=== PATIENT | female | born 1975 | race Caucasian/White ===

== ENCOUNTER 2017-12-08 00:51 | Emergency (ER) | payer OTHER ==
[~2017-12-08] VITALS: Ht 172.7 cm; Wt 80.8 kg
[~2017-12-08 00:51] MED LIST: ALBUAER9 INH; AMT25 PO; ASTNS; ATV5 PO; BUPRTAB51 PO; CALC200T PO; CERT200K SC; HYDR5SYP11 PO; LEVO1IUD2 IU; MRC50 PO; OMEG10007 PO; PANT40TA PO; PSEU60TA80 PO; SALINE 0.65%; TEMA15CA4 PO
[2017-12-08 00:56] VITALS: TEMP 36.7; Ht 172.7 cm; Wt 80.8 kg
[2017-12-08] MEDS ORDERED: DiphenhydrAMINE HCL 50 MG/ML VIAL IV STA (01:30)
[2017-12-08 01:36] LABS: BASO % 0.1 %; BASO ABS # 0.02 K/uL (0-0.2); EOS % 0.4 %; EOS ABS # 0.06 K/uL (0-0.5); HEMOGLOBIN 14.5 g/dL (12.0-16.0); IG# 0.03 K/uL (0.00-0.02); LYMPH % 20.6 %; LYMPH ABS # 2.81 K/uL (1.2-3.4); MEAN CORPUSCULAR HEMOGLOBIN 31.1 pg (25-34); MEAN CORPUSCULAR HGB CONC 35.4 g/dl (32-36); MEAN PLATELET VOLUME 8.9 fL (7.4-10.4); MONO % 5.9 %; MONO ABS # 0.81 K/uL (0.11-0.59); NEUT % 72.8 %; NEUT ABS # 9.94 K/uL (1.4-6.5); PLATELET COUNT 278 K/uL (130-400); RED CELL DISTRIBUTION WIDTH CV 13.1 % (11.5-14.5); RED CELL DISTRIBUTION WIDTH SD 41.7 fL (36.4-46.3); WHITE BLOOD COUNT 13.67 K/uL (4.8-10.8)
[2017-12-08] MEDS ORDERED: ONDANSETRON INJ 2 MG/ML 2 ML VIAL IV STA (01:42)
[2017-12-08 02:20] LABS: ALBUMIN 4.1 gm/dl (3.4-5.0); CALCIUM 9.3 mg/dl (8.5-10.1); CREATININE 0.77 mg/dl (0.60-1.20); POTASSIUM 3.4 mmol/L (3.5-5.1); TOTAL PROTEIN 8.6 gm/dl (6.4-8.2)
[2017-12-08] MEDS ORDERED: KETOROLAC TROMETHAMINE 15 MG/ML VIAL IV STA (02:24)
[2017-12-08] MEDS ORDERED: MoRPHine SULFATE 10 MG/ML CARP/VIAL IV STA (03:13)
[2017-12-08] MEDS ORDERED: NORCO 5/325MG HOME PACK PO ONE (03:45)
--- NOTE | 2017-12-08 03:50 | EMERGENCY ROOM VISIT NOTE ---
History First contact with patient: 01:01 Chief Complaint: FACIAL PAIN/INJURY Stated Complaint: FACIAL PAIN AND SWELLING History of Present Illness The patient is a 42 year old female who presents to the Emergency Room with complaints of facial pain and swelling. The patient reports that she noticed facial swelling and redness started this morning. She has redness in the nose and across the cheeks. The patient states the symptoms gradually worsened throughout the day. She has had symptoms similar to this in the past. She states that she has a history of Crohn's disease and was previously taking Cimzia and had a similar reaction multiple times. She had an extensive workup for this and it was determined that it was a reaction to the medication. This medication was then stopped and she was recently started on Stelara, receiving her first infusion 2 weeks ago. Patient does report she has been taking Tylenol for the past 2 days because she has not been feeling well and she is concerned this may be a reaction to the Tylenol. She denies difficulty breathing or swallowing. She denies any other rashes. She states the symptoms are very similar to the symptoms she experienced in the past. She reports burning pain in her face which is rated 8/10. Review of Systems A complete 10 point review of systems was reviewed with the patient with pertinent positives and negatives as per history of present illness. All else were negative. Past Medical/Surgical History Medical Problems: (1) Depression (2) Intra-abdominal abscesses secondary to Crohn's (3) Small bowel resection Social History Smoking Status: Current Every Day Smoker Alcohol Use: occasionally Marital Status: single Occupation Status: employed Current/Historical Medications Scheduled Amitriptyline Hcl (Elavil *), 25 MG PO HS Azelastine Hcl (Astelin Nasal [place] *), 2 SPRAYS NA BID Bupropion (Wellbutrin-Xl), 300 MG PO HS Calcium Carbonate-Vitamin D (Oscal 500/200 D-3), 1 TABLET PO DAILY Certolizumab Pegol (Cimzia), 400 MG SC MONTHLY Fish Oil ([place]-3), 1,000 MG PO DAILY Levonorgestrel (Iud) (Mirena), 1 IU UD Lorazepam (Ativan *), 0.5 MG PO TID PRN Mercaptopurine (Mercaptopurine), 75 MG PO DAILY [nasal saline 0.65%], 1 APPLN NA UD Scheduled PRN Albuterol Sulfate (Proventil Hfa), 2 PUFFS INH QID PRN Hydrocodone W/ Homatropine (Hycodan 5/1.5MG 5 Ml), 5 ML PO Q4 PRN Pantoprazole (Protonix), 40 MG PO DAILY PRN Pseudoephedrine-Guaifenesin (Mucinex D), 1 TABLET PO Q12 PRN Temazepam (Restoril), 15 MG PO HS PRN Physical Exam Vital Signs Date Time Temp Pulse Resp B/P (MAP) Pulse Ox O2 Delivery O2 Flow Rate FiO2 12/08/17 06:15 84 16 121/67 95 12/08/17 06:06 83 16 106/64 95 12/08/17 05:23 72 16 106/65 93 Room Air 12/08/17 05:12 72 16 98/54 93 12/08/17 05:00 74 16 66/50 95 12/08/17 04:00 70 16 100/54 95 Room Air 12/08/17 03:19 87 16 144/88 95 Room Air 12/08/17 01:42 102 16 137/93 95 Room Air 12/08/17 00:56 36.7 128 16 140/82 99 Room Air Physical Exam VITALS: Vitals are noted on the nurse's note and reviewed by myself. Vital signs stable. GENERAL: This is a 42-year-old female, in no acute distress, nondiaphoretic, well-developed well-nourished. SKIN: There is erythema and swelling/induration over the face extending from the nose to bilateral cheeks. This area is tender to palpation. EARS: External auditory canals clear, tympanic membranes pearly vázquez without erythema or effusion bilaterally. EYES: Pupils equal round and reactive to light and accommodation. Extraocular movements intact. NOSE: Patent, turbinates without inflammation or discharge. MOUTH: Mucous membranes moist. Tonsils are not enlarged. Pharynx without erythema or exudate. NECK: Supple without nuchal rigidity. No lymphadenopathy. HEART: Regular rate and rhythm without murmurs gallops or rubs. LUNGS: Clear to auscultation bilaterally without wheezes, rales or rhonchi. NEURO: Patient was alert and oriented to person place and time. Medical Decision & Procedures Laboratory Results 12/08/17 01:20 Red Blood Count 4.66, Mean Corpuscular Volume 88.0, Mean Corpuscular Hemoglobin 31.1, Mean Corpuscular Hemoglobin Concent 35.4, Mean Platelet Volume 8.9, Neutrophils (%) (Auto) 72.8, Lymphocytes (%) (Auto) 20.6, Monocytes (%) (Auto) 5.9, Eosinophils (%) (Auto) 0.4, Basophils (%) (Auto) 0.1, Neutrophils # (Auto) 9.94, Lymphocytes # (Auto) 2.81, Monocytes # (Auto) 0.81, Eosinophils # (Auto) 0.06, Basophils # (Auto) 0.02 12/08/17 01:20 Test 12/08/17 01:20 12/08/17 01:35 White Blood Count 13.67 K/uL (4.8-10.8) Red Blood Count 4.66 M/uL (4.2-5.4) Hemoglobin 14.5 g/dL (12.0-16.0) Hematocrit 41.0 % (37-47) Mean Corpuscular Volume 88.0 fL (80-100) Mean Corpuscular Hemoglobin 31.1 pg (25-34) Mean Corpuscular Hemoglobin Concent 35.4 g/dl (32-36) Platelet Count 278 K/uL (130-400) Mean Platelet Volume 8.9 fL (7.4-10.4) Neutrophils (%) (Auto) 72.8 % Lymphocytes (%) (Auto) 20.6 % Monocytes (%) (Auto) 5.9 % Eosinophils (%) (Auto) 0.4 % Basophils (%) (Auto) 0.1 % Neutrophils # (Auto) 9.94 K/uL (1.4-6.5) Lymphocytes # (Auto) 2.81 K/uL (1.2-3.4) Monocytes # (Auto) 0.81 K/uL (0.11-0.59) Eosinophils # (Auto) 0.06 K/uL (0-0.5) Basophils # (Auto) 0.02 K/uL (0-0.2) RDW Standard Deviation 41.7 fL (36.4-46.3) RDW Coefficient of Variation 13.1 % (11.5-14.5) Immature Granulocyte % (Auto) 0.2 % Immature Granulocyte # (Auto) 0.03 K/uL (0.00-0.02) Anion Gap 6.0 mmol/L (3-11) Est Creatinine Clear Calc Drug Dose 104.0 ml/min Estimated GFR () 108.8 Estimated GFR (Non- 93.9 BUN/Creatinine Ratio 11.9 (10-20) Calcium Level 9.3 mg/dl (8.5-10.1) Total Bilirubin 0.5 mg/dl (0.2-1) Aspartate Amino Transf (AST/SGOT) 29 U/L (15-37) Alanine Aminotransferase (ALT/SGPT) 37 U/L (12-78) Alkaline Phosphatase 76 U/L (45-117) Total Protein 8.6 gm/dl (6.4-8.2) Albumin 4.1 gm/dl (3.4-5.0) Globulin 4.5 gm/dl (2.5-4.0) Albumin/Globulin Ratio 0.9 (0.9-2) Chemistry Specimen Hemolysis Urine Color DK YELLOW Urine Appearance CLEAR (CLEAR) Urine pH 5.0 (4.5-7.5) Urine Specific [place] 1.021 (1.000-1.030) Urine Protein NEG (NEG) Urine Glucose (UA) NEG (NEG) Urine Ketones NEG (NEG) Urine Occult Blood 3+ (NEG) Urine Nitrite NEG (NEG) Urine Bilirubin NEG (NEG) Urine Urobilinogen NEG (NEG) Urine Leukocyte Esterase MODERATE (NEG) Urine WBC (Auto) 10-30 /hpf (0-5) Urine RBC (Auto) 10-30 /hpf (0-4) Urine Hyaline Casts (Auto) 5-10 /lpf (0-5) Urine Epithelial Cells (Auto) 10-20 /lpf (0-5) Urine Bacteria (Auto) NEG (NEG) Medications Administered Medications (Trade) Dose Ordered Sig/Cintia Route Start Time Stop Time Status Last Admin Dose Admin Diphenhydramine HCl (Benadryl Inj) 50 mg NOW STAT IV 12/08/17 01:30 12/08/17 01:31 DC 12/08/17 01:42 50 MG Ondansetron HCl (Zofran Inj) 4 mg NOW STAT IV 12/08/17 01:42 12/08/17 01:43 DC 12/08/17 02:06 4 MG Ketorolac Tromethamine (Toradol Inj) 15 mg NOW STAT IV 12/08/17 02:24 12/08/17 02:25 DC 12/08/17 02:27 15 MG Morphine Sulfate (MoRPHine SULFATE INJ) 6 mg NOW STAT IV 12/08/17 03:13 12/08/17 03:14 DC 12/08/17 03:18 6 MG Acetaminophen/ Hydrocodone Bitart ([place] 5/325mg Home Pack) 1 homepack UD ONCE PO 12/08/17 03:45 12/08/17 03:46 DC 12/08/17 03:51 1 HOMEPACK Sodium Chloride 1,000 ml @ 999 mls/hr Q1H1M STAT IV 12/08/17 05:07 12/08/17 06:07 DC 12/08/17 05:07 999 MLS/HR Medical Decision Differential diagnosis includes allergic reaction, adverse reaction to medication, erysipelas, facial cellulitis, SLE, autoimmune disorder, among others. The patient is a 42-year-old female who presents today complaining of swelling and redness of her face. Exam reveals a well-demarcated erythematous rash to the face distributed over the nose and both cheeks. Labs reveal leukocytosis, possibly due to stress reaction. Urinalysis was suggestive of contamination vs infection and will be cultured. The patient has had a similar reaction to Cimzia in the past and started Stelara recently. Her symptoms improved significantly after administration of Benadryl. She was given morphine for facial pain. She did have a drop in blood pressure after sitting up, likely a vagal reaction, possibly secondary to the morphine. She was administered fluids and felt much better. Blood pressure improved. She plans to follow up with her PCP in the morning. She was advised to return with worsening symptoms and continue Benadryl in the meantime. The patient's case was reviewed with Dr. Cardenas, ED attending physician, who agreed with my assessment and treatment plan. Based on the patient's presentation and work up, I feel the patient is stable for outpatient treatment. The patient was educated to return to the emergency department for any worsening of their current condition or new/concerning symptoms. She will follow up with her PCP. Medication Reconcilliation Current Medication List: was personally reviewed by me Blood Pressure Screening Patient's blood pressure: Normal blood pressure Impression Primary Impression: Facial swelling Departure Information Dispostion Home / Self-Care Referrals Angelic Mayer M.D. (PCP) Patient Instructions My [facility] Additional Instructions Continue Benadryl, 50 mg every 6 hours. You have been given [place] to be used for pain control. Take 1-2 tablets every 4 -6 hours as needed for pain. This is a narcotic medication. You cannot drive or consume alcohol while on this medicine. This medicine should only be used for pain that cannot be controlled with pkbs-ohf-ehwlviu pain medicines. For pain control, you can use the following tqap-fpl-wfysdvy medicines (if >12 yo): - Regular strength (325mg/tab) Tylenol (acetaminophen) 2 tabs every 4-6 hours as needed. Do not exceed 12 tablets in a 24 hour period. Avoid taking more than 4 grams (4000 mg) of Tylenol per day. This includes any other sources of acetaminophen you may take on a regular basis. - Regular strength (200 mg/tab) Advil (ibuprofen) 1-2 tabs every 4-6 hours as needed. Do not exceed a dose of [address] Mayer first thing in the morning to schedule a recheck today. Return here if he developed worsening swelling, pain, fever, difficulty breathing/swallowing or any other new/concerning symptoms.
[2017-12-08] MEDS ORDERED: SODIUM CHLORIDE 0.9% 1000ML 1,000 ML IV STA (05:07)
[2017-12-08 06:15] VITALS: BP 121/67; PULSE 84; O2SAT 95
== END 2017-12-08 06:15 | disposition home or self-care (01) ==
LOC: C.EDB 00:51 → C.EDA 06:15
DX: R22.0 Localized swelling, mass and lump, head (principal); R21 Rash and other nonspecific skin eruption; R51 Headache; D72.829 Elevated white blood cell count, unspecified; K50.90 Crohn's disease, unspecified, without complications; Z79.899 Other long term (current) drug therapy; Z90.49 Acquired absence of other specified parts of digestive tract; F32.9 Major depressive disorder, single episode, unspecified; F17.200 Nicotine dependence, unspecified, uncomplicated

== ENCOUNTER → 2017-12-17 | Outpatient (CLI) | payer OTHER ==
[2017-12-21 10:17] LABS: ANA SCREEN TC 249X NEGATIVE (NEGATIVE)
== END | disposition home or self-care (01) ==
LOC: C.LAB1850 13:51
PROVIDERS: ATTEND Internal Medicine Infectious Disease
DX: K50.90 Crohn's disease, unspecified, without complications (principal)

== ENCOUNTER 2019-09-26 07:32 | Inpatient (IN) ==
[2019-09-26] MEDS ORDERED: ONDANSETRON INJ 2 MG/ML 2 ML VIAL IV STA ×2 (07:53→09:29)
[2019-09-26] MEDS ORDERED: MoRPHine SULFATE 4 MG/ML 1 ML CARP\\VIAL IV STA ×2 (07:53→09:29)
[2019-09-26] MEDS ORDERED: methylPREDNISolone 125 MG/2 ML VIAL IV STA (07:53)
[2019-09-26] MEDS ORDERED: SODIUM CHLORIDE 0.9% 1000ML 1,000 ML IV SCH (08:00)
--- NOTE | 2019-09-26 08:00 | Emergency Department Note ---
History of Present Illness General Chief complaint: Abdominal Pain Stated complaint: AB PAIN COUGH FEVER SOB Time Seen by Provider: 09/26/19 07:46 History of Present Illness Maximum Pain Intensity: 9 This 44-year-old female presents the ER with chief complaint that she thinks she may have the flu. The patient states that evening she started with cold symptoms of head and chest congestion. She has started coughing and is very productive. She states that she gets short of breath when she is coughing. She feels achy all over. Her temperature was 102.1 at its highest. She has been taking Tylenol for her fever and body aches. Last dose was 2 hours ago. The patient states she has been trying to stay hydrated but has not been eating very much. She also is complaining of some left-sided abdominal pain but this is consistent with her Crohn's disease. She denies any bloody diarrhea or any diarrhea at all. She denies any vomiting but does admit to some nausea. She is followed closely by Dr. Rowley for her Crohn's disease. The patient denies any known exposures to persons with the influenza. Home Medications Home Medications Medication Instructions Recorded Confirmed Type albuterol sulfate [Proventil HFA] 2 puff INHALATION Q6H PRN 04/20/19 09/26/19 History azelastine 2 spray INTRANASAL BID 04/20/19 09/26/19 History bupropion HCl 300 mg PO HS 04/20/19 09/26/19 History calcium carbonate-vitamin D3 1 tab PO HS 04/20/19 09/26/19 History [Calcium 500 + D] escitalopram oxalate [Lexapro] 10 mg PO HS 04/20/19 09/26/19 History lorazepam 0.5 mg PO TID 04/20/19 09/26/19 History omega 4-jtg-kqq-fish oil [Fish Oil] 1 cap PO HS 04/20/19 09/26/19 History pantoprazole [Protonix] 40 mg PO HS 04/20/19 09/26/19 History sodium chloride [Saline Nasal] 2 spray INTRANASAL DIRECTED PRN 04/20/19 09/26/19 History ondansetron 4 mg PO Q6H PRN #12 tab 04/21/19 09/26/19 Rx acetaminophen [Tylenol Extra 500 mg PO Q6H PRN 09/26/19 09/26/19 History Strength] szplgnfaqgijh-EX-abdoqyiqjkmha 30 ml PO UD 09/26/19 09/26/19 History [Urmila Cheng Cold/Flu (cpm)] Allergies Allergy/AdvReac Type Severity Reaction Status Date / Time No Known Allergies Allergy Unknown Verified 09/26/19 08:41 Past Med/Surg History Medical History (Updated 09/26/19 @ 11:16 by Bernie Da Silva) Chronic maxillary sinusitis Crohn's disease Depression with anxiety History of Clostridioides difficile colitis History of deviated nasal septum History of erythema nodosum History of uveitis Tobacco abuse Surgical History History of colectomy History of colonoscopy Last 07/2019 History of rhinoplasty Multiple nasal surgeries x3 Family History (Updated 09/26/19 @ 10:51 by Vivian Smith PA-C) Father Heart disease TIA (transient ischemic attack) Mother Heart disease FH: diverticulitis Sister Crohn's disease Diabetes Social History Preferred Language: Mosotho Communication Ability: Effective Pinion Polisher Required: No Beliefs That Will Affect Care: None marital status: Single Current Living Situation: Significant Other Other Information That Helps Us Care for You: No Feels Safe at Home: Yes Safety Concerns: Feels Safe At This Time Smoking Status: Current every day smoker Tobacco Type: cigarettes ; Years Smoked: 35 ; Cigarettes Per Day: 10 ; Do You Dip or Chew Tobacco: No ; Second Hand Exposure: No ; Tobacco Cessation Education Requested by Patient: No Hx Alcohol Use: Yes Alcohol type Comment: Once a month Alcohol Intake Frequency: Rarely Hx Substance Use: Yes substance use type: marijuana Last Used Substance Other:: 3 to 4 weeks ago Review of Systems A total of 10 systems reviewed and were otherwise negative Physical Exam Vital Signs Vital Signs - 24 hr 09/26/19 07:41 09/26/19 08:28 09/26/19 09:13 Temperature 37.6 C H Temperature Source Oral Pulse Rate 101 H Pulse Rate [Finger] 77 Respiratory Rate 20 18 Respiratory Effort / Characteristics Non-Labored Spontaneous Non-Labored Spontaneous Short of Breath Respiratory Depth Normal Blood Pressure 105/66 Blood Pressure [Left Arm] Blood Pressure Mean 79 Blood Pressure Mean [Left Arm] Blood Pressure Position Sitting Pulse Oximetry 91 88 L 91 Oxygen Delivery Method Room Air Room Air Nasal Cannula Oxygen Flow Rate 2 Sepsis Recent Fever Within 48 Hours Yes Sepsis New/Unexplained Change in Mental Status No Sepsis Action Taken by Nursing No Action Required 09/26/19 09:20 09/26/19 09:58 09/26/19 10:45 Temperature Temperature Source Pulse Rate Pulse Rate [Finger] 80 84 81 Respiratory Rate 16 16 16 Respiratory Effort / Characteristics Respiratory Depth Blood Pressure Blood Pressure [Left Arm] 102/55 L 124/69 115/66 Blood Pressure Mean Blood Pressure Mean [Left Arm] 70 87 82 Blood Pressure Position Pulse Oximetry 91 97 92 Oxygen Delivery Method Nasal Cannula Nasal Cannula Nasal Cannula Oxygen Flow Rate 4 5 5 Sepsis Recent Fever Within 48 Hours Sepsis New/Unexplained Change in Mental Status Sepsis Action Taken by Nursing 09/26/19 11:09 Temperature Temperature Source Pulse Rate 82 Pulse Rate [Finger] Respiratory Rate 16 Respiratory Effort / Characteristics Respiratory Depth Blood Pressure 115/66 Blood Pressure [Left Arm] Blood Pressure Mean Blood Pressure Mean [Left Arm] Blood Pressure Position Pulse Oximetry 92 Oxygen Delivery Method Nasal Cannula Oxygen Flow Rate 5 Sepsis Recent Fever Within 48 Hours Sepsis New/Unexplained Change in Mental Status Sepsis Action Taken by Nursing PHYSICAL EXAM: Vital Signs were reviewed: Reviewed Nurse's notes and agree. Oxygen saturation is 91 % on room air which is slightly low l . GENERAL: 44-year-old female appears in no acute distress. MENTAL STATUS: Alert, oriented, coherent. EARS: Canals clear. TMs good light reflex, some scarring noted bilaterally. No erythema or fluid level noted. NOSE: Nasal mucosa with moderate erythema engorgement. PHARYNX: No erythema, no edema noted. No exudate noted. Airway is adequate. NECK: Supple, non-tender. No lymphadenopathy noted. LUNGS: Clear to auscultation without wheezes rales or rhonchi. CARDIAC: Slightly tachycardic at a rate of 101. Normal rhythm without murmur. Abdomen: Positive bowel sounds all 4 quadrants soft mild tenderness palpation over the entire left side of the abdomen right side nontender. No organomegaly or masses noted negative rebound noted SKIN: No rashes noted. Course Administered Medications Potassium Chloride/Sodium Chloride (Normal Saline W/20 Meq Kcl) 20 meq in 1,000 mls @ 100 mls/hr IV .Q10H DENILSON Stop: 09/27/19 06:29 Last Admin: 09/26/19 10:42 Dose: 100 mls/hr Documented by: [id number] Discontinued Medications Albuterol (Duoneb) 3 ml NEB NOW STA Stop: 09/26/19 08:33 Last Admin: 09/26/19 09:09 Dose: 3 ml Documented by: [id number] Sodium Chloride (Nss 1000ml) 1,000 mls @ 999 mls/hr IV .Q1H1M DENILSON Stop: 09/26/19 09:00 Last Infusion: 09/26/19 09:23 Dose: 0 mls/hr Documented by: [id number] Admin: 09/26/19 08:15 Dose: 999 mls/hr Documented by: [id number] Methylprednisolone (Solumedrol) 125 mg IV NOW STA Stop: 09/26/19 07:54 Last Admin: 09/26/19 08:16 Dose: 125 mg Documented by: [id number] Morphine Sulfate (Morphine Sulfate) 4 mg IV NOW STA Stop: 09/26/19 07:54 Last Admin: 09/26/19 08:15 Dose: 4 mg Documented by: [id number] Morphine Sulfate (Morphine Sulfate) 4 mg IV NOW STA Stop: 09/26/19 09:30 Last Admin: 09/26/19 09:40 Dose: 4 mg Documented by: [id number] Ondansetron HCl (Zofran) 4 mg IV NOW STA Stop: 09/26/19 07:54 Last Admin: 09/26/19 08:16 Dose: 4 mg Documented by: [id number] Ondansetron HCl (Zofran) 4 mg IV NOW STA Stop: 09/26/19 09:30 Last Admin: 09/26/19 09:40 Dose: 4 mg Documented by: [id number] Potassium Chloride (Klor-Con M10) 20 meq PO NOW STA Stop: 09/26/19 09:22 Last Admin: 09/26/19 09:26 Dose: 20 meq Documented by: [id number] Potassium Chloride (Klor-Con M20) 40 meq PO NOW STA Stop: 09/26/19 10:27 Last Admin: 09/26/19 10:42 Dose: 40 meq Documented by: [id number] Medical Decision Making Differential Diagnosis Influenza, URI, pneumonia, Crohn's flare Medical Records Attestation: I reviewed the patient's medical records. Home Medications Current Medication List: was personally reviewed by me Laboratory Data Attestation: I reviewed the patient's lab results. Result diagrams: 09/26/19 08:14 09/26/19 08:14 Lab Results 09/26/19 09/26/19 09/26/19 Range/Units 08:14 08:14 08:14 WBC 8.44 (4.8-10.8) K/uL RBC 4.52 (4.2-5.4) M/uL Hgb 14.2 (12.0-16.0) g/dL Hct 41.3 (37-47) % MCV 91.4 (80-100) fL MCH 31.4 (25-34) pg MCHC 34.4 (32-36) g/dL RDW Std Deviation 46.3 (36.4-46.3) fL RDW Coeff of Samia 13.8 (11.5-14.5) % Plt Count 257 (130-400) K/uL MPV 9.4 (7.4-10.4) fL Neutrophils % (Manual) 43.7 % Lymphocytes % (Manual) 24.6 % Reactive Lymphs % (Man) 21.1 % Monocytes % (Manual) 7.0 % Eosinophils % (Manual) 1.8 % Basophils % (Manual) 1.8 % Neutrophils # (Manual) 3.69 (1.4-6.5) K/uL Total Absolute Neuts 3.69 (1.4-6.5) K/uL Lymphocytes # (Manual) 2.08 (1.2-3.4) K/uL Reactive Lymphs # 1.78 K/uL Total Abs Lymphocytes 3.86 H (1.2-3.4) K/uL Monocytes # (Manual) 0.59 (0.11-0.59) K/uL Eosinophils # (Manual) 0.15 (0-0.5) K/uL Basophils # (Manual) 0.15 (0-0.2) K/uL RBC Morphology Unremarkable Sodium 139 (136-145) mmol/L Potassium 2.5 L* (3.5-5.1) mmol/L Chloride 103 (98-107) mmol/L Carbon Dioxide 29 (21-32) mmol/L Anion Gap 7.0 (3-11) BUN 9 (7-18) mg/dl Creatinine 0.83 (0.6-1.2) mg/dl Est Cr Clr Drug Dosing 85.4 ml/min Est GFR ( Amer) 98.0 Est GFR (Non-Af Amer) 84.6 BUN/Creatinine Ratio 11.1 (10-20) Glucose 113 H (70-99) mg/dl Calcium 8.6 (8.5-10.1) mg/dl Magnesium (1.8-2.4) mg/dl Total Bilirubin 0.2 (0.2-1) mg/dl AST 21 (15-37) U/L ALT 15 (12-78) U/L Alkaline Phosphatase 53 (45-117) U/L Total Protein 7.5 (6.4-8.2) gm/dl Albumin 3.3 L (3.4-5.0) gm/dl Globulin 4.2 H (2.5-4.0) gm/dl Albumin/Globulin Ratio 0.8 L (0.9-2) Lipase 52 L (73-393) U/L Influenza Type A Ag Neg for Influ A (Neg) Influenza Type B Ag Neg for Influ B (Neg) 09/26/19 Range/Units 08:14 WBC (4.8-10.8) K/uL RBC (4.2-5.4) M/uL Hgb (12.0-16.0) g/dL Hct (37-47) % MCV (80-100) fL MCH (25-34) pg MCHC (32-36) g/dL RDW Std Deviation (36.4-46.3) fL RDW Coeff of Samia (11.5-14.5) % Plt Count (130-400) K/uL MPV (7.4-10.4) fL Neutrophils % (Manual) % Lymphocytes % (Manual) % Reactive Lymphs % (Man) % Monocytes % (Manual) % Eosinophils % (Manual) % Basophils % (Manual) % Neutrophils # (Manual) (1.4-6.5) K/uL Total Absolute Neuts (1.4-6.5) K/uL Lymphocytes # (Manual) (1.2-3.4) K/uL Reactive Lymphs # K/uL Total Abs Lymphocytes (1.2-3.4) K/uL Monocytes # (Manual) (0.11-0.59) K/uL Eosinophils # (Manual) (0-0.5) K/uL Basophils # (Manual) (0-0.2) K/uL RBC Morphology Sodium (136-145) mmol/L Potassium (3.5-5.1) mmol/L Chloride (98-107) mmol/L Carbon Dioxide (21-32) mmol/L Anion Gap (3-11) BUN (7-18) mg/dl Creatinine (0.6-1.2) mg/dl Est Cr Clr Drug Dosing ml/min Est GFR ( Amer) Est GFR (Non-Af Amer) BUN/Creatinine Ratio (10-20) Glucose (70-99) mg/dl Calcium (8.5-10.1) mg/dl Magnesium 1.9 (1.8-2.4) mg/dl Total Bilirubin (0.2-1) mg/dl AST (15-37) U/L ALT (12-78) U/L Alkaline Phosphatase (45-117) U/L Total Protein (6.4-8.2) gm/dl Albumin (3.4-5.0) gm/dl Globulin (2.5-4.0) gm/dl Albumin/Globulin Ratio (0.9-2) Lipase (73-393) U/L Influenza Type A Ag (Neg) Influenza Type B Ag (Neg) Imaging Data Attestation: I personally reviewed and interpreted this imaging study as follows: Blood Pressure Blood Pressure Findings: Normal blood pressure MDM Narrative The patient was evaluated. IV access was obtained. The patient was given 1 L normal saline wide open. She was given Zofran 4 mg IV for nausea and morphine 4 mg IV for pain. CBC differential, renal profile, LFTs and lipase levels were ordered. Chest x-ray was ordered interpreted by the radiologist and myself as above with left lower lobe infiltrate. Rapid influenza was negative for influenza A and influenza B. The patient's white count was normal at 8.44. Magnesium was normal at 1.9 potassium was low at 2.5. She was given 20 mEq of K. Dur p.o. The patient's initial pulse ox was 88% on room air. She was initially placed on 2 L of oxygen and her O2 sat went up to 94. She then went back down to 88% on the 2 L. She then was titrated up to 5 L via nasal cannula and is satting 92% the patient was informed of all findings. Hospitalist was consulted for admission. Impression & Plan Hypoxia, Pneumonia, Hypokalemia Discharge Plan Visit Data Chief Complaint: Abdominal Pain Stated Complaint: AB PAIN COUGH FEVER SOB ED Provider: Tano Alvarez ED Midlevel Provider: Bernie Da Silva Discharge Problem: Hypoxia, Pneumonia, Hypokalemia Patient Disposition: Being Evaluated by Hospitalist Condition: Good Discharge Instructions Interventions: ED Discharge Assessment Last Done: 09/26/19 11:09 Forms Stand Alone Forms: Call Back Authorization, [facility] Prescriptions Prescriptions: No Action acetaminophen [Tylenol Extra Strength] 500 mg Tablet 500 mg PO Q6H PRN (Reason: Pain) RF: 0 Vicks NyQuil Cold/Flu (cpm) 4-30-650 mg/30 mL Liquid 30 ml PO UD RF: 0 bupropion HCl 150 mg Tablet Sustained-Release 12 Hr 300 mg PO HS RF: 0 lorazepam 0.5 mg Tablet 0.5 mg PO TID RF: 0 pantoprazole [Protonix] 40 mg Tablet,Delayed Release (Dr/Ec) 40 mg PO HS RF: 0 azelastine 137 mcg (0.1 %) Aerosol,[place] 2 spray INTRANASAL BID RF: 0 albuterol sulfate [Proventil HFA] 90 mcg/actuation Hfa Aerosol Inhaler 2 puff INHALATION Q6H PRN (Reason: Shortness Of Breath Or Wheezing) RF: 0 escitalopram oxalate [Lexapro] 10 mg Tablet 10 mg PO HS RF: 0 sodium chloride [Saline Nasal] 0.65 % Aerosol,[place] 2 spray INTRANASAL DIRECTED PRN (Reason: Dry Nasal Passages) RF: 0 calcium carbonate-vitamin D3 [Calcium 500 + D] 500 mg(1,250mg) -200 unit Tablet 1 tab PO HS RF: 0 omega 4-cnb-mbs-fish oil [Fish Oil] 1,000 mg (120 mg-180 mg) Capsule 1 cap PO HS RF: 0 ondansetron 4 mg tablet,disintegrating 4 mg PO Q6H PRN (Reason: nausea and vomiting) Qty: 12 RF: 0 Referrals Referrals: Angelic Mayer MD [Primary Care Provider] -
[2019-09-26 08:31] LABS: Hematocrit (blood only) 41.3 % (37-47); Hemoglobin 14.2 g/dL (12.0-16.0); Mean Corpuscular Hemoglobin 31.4 pg (25-34); Mean Corpuscular Hgb Conc 34.4 g/dL (32-36); Mean Corpuscular Volume 91.4 fL (80-100); Mean Platelet Volume 9.4 fL (7.4-10.4); Platelet Count 257 K/uL (130-400); RDW Coefficient of Variation 13.8 % (11.5-14.5); RDW Standard Deviation 46.3 fL (36.4-46.3); Red Blood Count 4.52 M/uL (4.2-5.4); White Blood Count 8.44 K/uL (4.8-10.8)
[2019-09-26] MEDS ORDERED: ALBUT/IPRATROP 3MG/0.5MG NEB 3 ML VIAL NEB STA (08:32)
--- NOTE | 2019-09-26 09:11 | XRay Report ---
XR chest 2V PA/lateral CLINICAL HISTORY: Cough, fever, shortness of breath COMPARISON STUDY: Chest radiograph March 03, 2012. FINDINGS: Lung volumes are normal. There is no pneumothorax or pleural effusion. Cardiac size is norm al. Mediastinal contours are normal. There is no evidence for pulmonary edema. There is mild intersti tial thickening and minimal left basilar opacity. IMPRESSION: Nonspecific mild interstitial thickening and minimal left basilar opacity. ACT 112: Negative or not required by law. Electronically signed by: Eliseo Saxena M.D. 09/26/2019 9:09 AM
[2019-09-26 09:15] LABS: Albumin Globulin Ratio 0.8 (0.9-2); Albumin Level 3.3 gm/dl (3.4-5.0); BUN Creatinine Ratio 11.1 (10-20); Bilirubin,Total 0.2 mg/dl (0.2-1); Calcium 8.6 mg/dl (8.5-10.1); Creatinine Clr Calc Pharmacy 85.4 ml/min; Est GFR (Non-African American) 84.6; Globulin 4.2 gm/dl (2.5-4.0); Potassium 2.5 mmol/L (3.5-5.1); Total Protein 7.5 gm/dl (6.4-8.2)
[2019-09-26 09:18] LABS: ALC (manual) 3.86 K/uL (1.2-3.4); ANC (manual) 3.69 K/uL (1.4-6.5); Basophils # (manual) 0.15 K/uL (0-0.2); Basophils % (manual) 1.8 %; Eosinophils # (manual) 0.15 K/uL (0-0.5); Eosinophils % (manual) 1.8 %; Lymphocytes # (manual) 2.08 K/uL (1.2-3.4); Lymphocytes % (manual) 24.6 %; Monocytes # (manual) 0.59 K/uL (0.11-0.59); Neutrophils # (manual) 3.69 K/uL (1.4-6.5); Neutrophils % (manual) 43.7 %; RBC Morphology Unremarkable; Reactive Lymphocytes # (manual) 1.78 K/uL; Reactive Lymphocytes % (manual) 21.1 %
[2019-09-26] MEDS ORDERED: POTASSIUM CHLORIDE 10 MEQ TABCR PO STA (09:21)
[2019-09-26] MEDS ORDERED: POTASSIUM CHLORIDE 20 MEQ TABCR PO STA ×2 (10:26→20:38)
[2019-09-26] MEDS: NSS + 20MEQ KCL 20 MEQ/1,000 ML BAG IV SCH ×2 (10:42→20:10)
--- NOTE | 2019-09-26 10:56 | History & Physical Report ---
Date of Service September 26, 2019 Assessment & Plan (1) Pneumonia: (2) Hypoxia: This is a 44-year-old female who has significant past medical history of Crohn's disease, depression with anxiety, tobacco abuse, vitamin D deficiency, chronic maxillary sinusitis who presents to ED secondary to fever x5 days; shortness of breath x1 day. In ED upon arrival patient was hypoxic requiring 5 L of O2 to maintain normal oxygen saturation. He had mild elevation in temp 37.6. Was otherwise hemod ynamically stable. CBC relatively unremarkable except mild elevation in total absolute lymphocytes 3.86. CMP significant for hypokalemia 2.5, glucose 113, negative for influenza. Chest x-ray concerning for minimal left basilar opacity versus thickening. She received 1 L of IVF, nebulizer treatment, 125 mg Solu-Medrol and 20 M EQ of KCl. Acute hypoxia in setting of left basilar pneumonia viral versus bacterial. Admit to PCU Obtain CT scan of chest rule out PE and CT scan of abdomen pelvis rule out Crohn's flare IV antibiotics Rocephin and Doxycycline Patient with history of multiple episodes of C. difficile - stool ordered IV Solu-Medrol 40 mg 3 times daily DuoNeb 4 times daily, incentive spirometry, mucolytic's Sputum culture (3) Hypokalemia: K2.5, likely secondary to GI loss and poor p.o. intake Received 20 M EQ KCl while in ED Additional 40 M EQ KCl x1 now and again at 4 PM KCl with IVF Repeat K at 8 PM and in a.m. (4) Abdominal pain: Patient presenting with worsened abdominal pain and increased frequency. She denies any blood in stool. Elicits symptoms similar to prior exacerbation of Crohn's and history of C. difficile. She has not been taking any immunosuppressants as outpatient. Last seen by GI on 08/08/19 had colonoscopy in 07/[address] scan abdomen pelvis with contrast Stool for C. difficile Consult GI (5) Crohn's disease: As above (6) Tobacco abuse: Encourage smoking cessation Patient requesting nicotine patch (7) Depression with anxiety: Mood stable Continue Wellbutrin and Lexapro Lorazepam 3 times daily, hold for sedation (8) DVT prophylaxis: Lovenox Disposition: admit to PCU Follow up: PCP Dr. Mayer upon discharge along with appropriate GI follow up due to Crohns Pt was seen and examined in collaboration with Dr. Riley, please see addendum History of Present Illness Chief Complaint: Fever x5 days; shortness of breath x1 day. Primary Care Provider: Angelic Mayer MD This is a 44-year-old female who has significant past medical history of Crohn's disease, depression with anxiety, tobacco abuse, vitamin D deficiency, chronic maxillary sinusitis who presents to ED secondary to fever x5 days; shortness of breath x1 day. Starting last patient began developing intermittent fevers chills and sweats. Temp max was 102.6. Approximately 1.5 days after developing fever she developed lower respiratory symptoms including moist but nonproductive cough, wheezing, shortness with with exertion, malaise, fatigue, decreased appetite, continued fever and chills and nausea. She further elicits to being lightheaded with movement but denies any syncopal event. She does have sick contact with similar symptoms. Denies prior history of pneumonia or asthma. She is a half a pack a day smoker for 35 years and intermittent marijuana use. Denies recent travel out of the country or exposed to someone with recent travel. She further denies any hemoptysis, emesis, chest pain, palpitations, dysuria, increased urgency or frequency with urination, melena, hematochezia. He notes decreased frequency with urination secondary to poor p.o. intake. She also elicits 8-10 loose bowel movements daily. This is not a bnormal secondary to her Crohn's but she feels she is moving her bowels more frequently and experiencing LLQ abdominal pain. Abdominal pain is predominantly in the LLQ but does radiate throughout entire abdomen. Is constant but wax and wanes in severity. Upon arrival to ED was approximately 9 out of 10 and currently is 4 out of 10. Nothing makes pain better or worse. Feels similar to her prior flare of Crohn's and history of C. difficile. Denies any recent antibiotic use. She has been trying [id number] APAP for fever and NyQuil with minimal relief. He denies currently being on any immunosuppressant for her Crohn's, last on Stelara. Elicits to having colonoscopy 07/2019 which revealed stricture. In ED upon arrival patient was hypoxic requiring 5 L of O2 to maintain normal ox ygen saturation. He had mild elevation in temp 37.6. Was otherwise hemodynamically stable. CBC relatively unremarkable except mild elevation in total absolute lymphocytes 3.86. CMP significant for hypokalemia 2.5, glucose 113, negative for influenza. Chest x-ray concerning for minimal left basilar opacity versus thickening. She received 1 L of IVF, nebulizer treatment, 125 mg Solu-Medrol and 20 M EQ of KCl. Allergies Allergy/AdvReac Type Severity Reaction Status Date / Time No Known Allergies Allergy Unknown Verified 09/26/19 08:41 Home Medications Home Medications Medication Instructions Recorded Confirmed Type albuterol sulfate [Proventil HFA] 2 puff INHALATION Q6H PRN 04/20/19 09/26/19 History azelastine 2 spray INTRANASAL BID 04/20/19 09/26/19 History bupropion HCl 300 mg PO HS 04/20/19 09/26/19 History calcium carbonate-vitamin D3 1 tab PO HS 04/20/19 09/26/19 History [Calcium 500 + D] escitalopram oxalate [Lexapro] 10 mg PO HS 04/20/19 09/26/19 History lorazepam 0.5 mg PO TID 04/20/19 09/26/19 History omega 4-nzo-iok-fish oil [Fish Oil] 1 cap PO HS 04/20/19 09/26/19 History pantoprazole [Protonix] 40 mg PO HS 04/20/19 09/26/19 History sodium chloride [Saline Nasal] 2 spray INTRANASAL DIRECTED PRN 04/20/19 09/26/19 History ondansetron 4 mg PO Q6H PRN #12 tab 04/21/19 09/26/19 Rx acetaminophen [Tylenol Extra 500 mg PO Q6H PRN 09/26/19 09/26/19 History Strength] rmcacofebyfoz-FS-tpqcpralscuav 30 ml PO UD 09/26/19 09/26/19 History [Vicks NyQuil Cold/Flu (cpm)] Past Med/Surg History Medical History (Updated 09/26/19 @ 11:16 by Bernie Da Silva) Chronic maxillary sinusitis Crohn's disease Depression with anxiety History of Clostridioides difficile colitis History of deviated nasal septum History of erythema nodosum History of uveitis Tobacco abuse Surgical History History of colectomy History of colonoscopy Last 07/2019 History of rhinoplasty Multiple nasal surgeries x3 Family History (Updated 09/26/19 @ 10:51 by Vivian Smith PA-C) Father Heart disease TIA (transient ischemic attack) Mother Heart disease FH: diverticulitis Sister Crohn's disease Diabetes Social History Preferred Language: Romansh Communication Ability: Effective Tripe Washer Required: No Beliefs That Will Affect Care: None marital status: Single Current Living Situation: Significant Other Other Information That Helps Us Care for You: No Feels Safe at Home: Yes Safety Concerns: Feels Safe At This Time Smoking Status: Current every day smoker Tobacco Type: cigarettes ; Years Smoked: 35 ; Cigarettes Per Day: 10 ; Do You Dip or Chew Tobacco: No ; Second Hand Exposure: No ; Tobacco Cessation Education Requested by Patient: No Hx Alcohol Use: Yes Alcohol type Comment: Once a month Alcohol Intake Frequency: Rarely Hx Substance Use: Yes substance use type: marijuana Last Used Substance Other:: 3 to 4 weeks ago Review of Systems Review of Systems: All systems reviewed & are unremarkable except as noted in HPI & below Physical Exam Physical Exam: Constitutional: Ill-appearing, pale, female, on O2 via NC, dyspneic with conversation, vitals as above, NAD, sitting up in bed, pleasant Head: Normocephalic, Atraumatic Eyes: PERRL, conjunctivae normal, anicteric sclerae ENMT: external ear and nose normal, oropharynx normal with dry mucous membranes Neck: trachea midline, no thyromegaly normal visual inspection Respiratory: normal respiratory effort, patient with coarse breath sounds throughout, rales bibasilarly, no wheeze or rhonchi noted. On O2 via NC 5L. normal insp/exp effort, no accessory muscle use Cardiovascular: RRR, no murmur, no edema Vessels: no JVD or carotid bruit Chest: normal inspection of chest Abdomen: normal bowel sounds, soft, tender to palpation diffusely with max at LLQ, no rebound, no guarding, no rigidity, nondistended no hepatosplenomegaly Musculoskeletal: no cyanosis or clubbing, extremities motor strength 5/5 Skin: no rashes, warm and dry mild turgor Neurologic: PERRL, EOMI, accommodation nl, no face palsy, no dysarthria CN's II-XI intact bilaterally and moves all extremities Psychiatric: A+Ox3, euthymic affect Lymphatic: no cervical or axillary lymphadenopathy : deferred Results & Data Vital Signs (Past 12 Hours) Vital Signs Temp Pulse Pulse Resp BP BP Pulse Ox 09/26/19 09:58 84 16 124/69 97 09/26/19 09:20 80 16 102/55 L 91 09/26/19 09:13 77 18 91 09/26/19 08:28 88 L 09/26/19 07:41 37.6 C H 101 H 20 105/66 91 Laboratory Results Short CBC 09/26/19 Range/Units 08:14 WBC 8.44 (4.8-10.8) K/uL Hgb 14.2 (12.0-16.0) g/dL Hct 41.3 (37-47) % Plt Count 257 (130-400) K/uL Total Abs Lymphocytes 3.86 H (1.2-3.4) K/uL BMP 09/26/19 08:14 Sodium 139 Potassium 2.5 L* Chloride 103 Carbon Dioxide 29 BUN 9 Creatinine 0.83 Glucose 113 H Calcium 8.6 Liver Function 09/26/19 Range/Units 08:14 Total Bilirubin 0.2 (0.2-1) mg/dl AST 21 (15-37) U/L ALT 15 (12-78) U/L Alkaline Phosphatase 53 (45-117) U/L Albumin 3.3 L (3.4-5.0) gm/dl Diagnostic Findings CXR: FINDINGS: Lung volumes are normal. There is no pneumothorax or pleural effusion. Cardiac size is normal. Mediastinal contours are normal. There is no evidence for pulmonary edema. There is mild interstitial thickening and minimal left basilar opacity. IMPRESSION: Nonspecific mild interstitial thickening and minimal left basilar opacity. Medications Administered Potassium Chloride/Sodium Chloride (Normal Saline W/20 Meq Kcl) 20 meq in 1,000 mls @ 100 mls/hr IV .Q10H DENILSON Stop: 09/27/19 06:29 Last Admin: 09/26/19 10:42 Dose: 100 mls/hr Documented by: [id number] Discontinued Medications Albuterol (Duoneb) 3 ml NEB NOW STA Stop: 09/26/19 08:33 Last Admin: 09/26/19 09:09 Dose: 3 ml Documented by: [id number] Sodium Chloride (Nss 1000ml) 1,000 mls @ 999 mls/hr IV .Q1H1M DENILSON Stop: 09/26/19 09:00 Last Infusion: 09/26/19 09:23 Dose: 0 mls/hr Documented by: [id number] Admin: 09/26/19 08:15 Dose: 999 mls/hr Documented by: [id number] Methylprednisolone (Solumedrol) 125 mg IV NOW STA Stop: 09/26/19 07:54 Last Admin: 09/26/19 08:16 Dose: 125 mg Documented by: [id number] Morphine Sulfate (Morphine Sulfate) 4 mg IV NOW STA Stop: 09/26/19 07:54 Last Admin: 09/26/19 08:15 Dose: 4 mg Documented by: [id number] Morphine Sulfate (Morphine Sulfate) 4 mg IV NOW STA Stop: 09/26/19 09:30 Last Admin: 09/26/19 09:40 Dose: 4 mg Documented by: [id number] Ondansetron HCl (Zofran) 4 mg IV NOW STA Stop: 09/26/19 07:54 Last Admin: 09/26/19 08:16 Dose: 4 mg Documented by: [id number] Ondansetron HCl (Zofran) 4 mg IV NOW STA Stop: 09/26/19 09:30 Last Admin: 09/26/19 09:40 Dose: 4 mg Documented by: [id number] Potassium Chloride (Klor-Con M10) 20 meq PO NOW STA Stop: 09/26/19 09:22 Last Admin: 09/26/19 09:26 Dose: 20 meq Documented by: [id number] Potassium Chloride (Klor-Con M20) 40 meq PO NOW STA Stop: 09/26/19 10:27 Last Admin: 09/26/19 10:42 Dose: 40 meq Documented by: [id number] Code Status & VTE Plan Code Status Full Code VTE Prophylaxis Plan VTE Prophylaxis will be ordered: Yes Supervising Physician Co-Signing Physician Notes Attending addendum: The patient was seen and examined in the emergency room He has history of Crohn's disease and he is ongoing smoker presented to ER with abdominal pain left lower quadrant with diarrhea and shortness of breath and fever for the last 5 to 7 days Looked unwell in the emergency room with minimal shortness of breath at rest Complaint abdominal pain and cough with shortness of breath On examination Mild distress at rest due to shortness of breath and abdominal pain Has been requiring 4 L oxygen to maintain saturation otherwise hemodynamically stable Chest-decreased breath sounds with occasional wheezing and bibasilar crackles more on the left than the right Heart-S1-S2, regular Abdomen-soft, tender left lower quadrants, bowel sounds present Extremities-negative POULTRY EVISCERATOR-alert, awake and oriented x3. No focal neuro deficit Admission labs and imaging studies noted CTA-did not show any pulmonary embolism but did show bibasilar infiltrate CT abdomen and pelvis-colitis may be secondary to Crohn's disease Antibiotics started and GI will be consulted I agree with assessment and plan as outlined above by MEGHNA Dodd Dr
[2019-09-26] MEDS ORDERED: SODIUM CHLORIDE 0.65% NA SOLN 45 ML (OCEAN) PRN (11:23)
[2019-09-26] MEDS ORDERED: ALUMINUM/MAGNESIUM SUSP 30 ML UDC PO PRN (11:23)
[2019-09-26] MEDS ORDERED: ACETAMINOPHEN 325 MG TAB PO PRN (11:23)
--- NOTE | 2019-09-26 11:40 | Gastrointestinal Consultation ---
Date of Consultation September 26, 2019 Assessment & Plan (1) Crohn's disease: Will discuss pt's hospitalization with Dr. Rowley. Will need to wait until pneumonia is treated/resolved prior to starting the Humira. Will talk with the nurses at [facility] to ask what needs to happen next for pt's Humira to be approved and mailed to the pt. For now: though evidence of active disease on imaging and colonoscopy, she does not appear to be in a significant Crohn's flare. Would hold on prescribing a steroid taper. No evidence of abscess - thus no indication for Cipro/Flagyl. Agree with checking C-diff and stool cultures. GI will watch peripherally. Please notify us if new/worsening GI issues. Present on Admission?: Yes Supervising Physician Co-Signing Physician Notes I have personally seen and examined the patient with THIERRY Levi. Her note reflects my exam and findings. I agree with her impression and plan. No indication to start steroids. Once pneumonia is treated than she can start her Humira as an out patient. Seth Wells M.D. History of Present Illness Reason for Consultation: Crohn's Requesting Physician: Vivian Momin PA-C Attending Physician: Michael Riley MD History of Present Illness Ms. Keiry Cruz is a 44 yr old female pt of Dr. Angelic Mayer with a hx of Crohn's was admitted to [facility] today for pneumonia. GI is consulted for Crohn's. Regarding her hx of Crohn's, it was dx'ed in 1993 with abscesses in 1994, 1999 and underwent bowel resection in 1999 then ileocolonic resection with right hemicolectomy in 2009. She was seen in GI clinic in July after having had a lapse of care w/o any Crohn's meds for several months. Colonoscopy in July 2019 with mild anal stenosis, hemorrhoids, ulcerated ileal stricture (not traversed). MRE also in July 2019 with stable fibrostenotic disease with mild active inflammation at the ileocolonic anastomosis. Humira was recently prescribed (09/11/19) but pt has not yet started (due to insurance issues etc). Other meds that she has been on previously during the course of her treatment, have been: Remicade, 6MP and Cimzia. She has also previously been on Humira around 2007->2009. She reports chronic diarrhea, not specifically worse than her baseline that she had for years. She also has chronic abdominal pain - worse in the past few months. Allergies Allergy/AdvReac Type Severity Reaction Status Date / Time No Known Allergies Allergy Unknown Verified 09/26/19 08:41 Home Medications Home Medications Medication Instructions Recorded Confirmed Type albuterol sulfate [Proventil HFA] 2 puff INHALATION Q6H PRN 04/20/19 09/26/19 History azelastine 2 spray INTRANASAL BID 04/20/19 09/26/19 History bupropion HCl 300 mg PO HS 04/20/19 09/26/19 History calcium carbonate-vitamin D3 1 tab PO HS 04/20/19 09/26/19 History [Calcium 500 + D] escitalopram oxalate [Lexapro] 10 mg PO HS 04/20/19 09/26/19 History lorazepam 0.5 mg PO TID 04/20/19 09/26/19 History omega 1-pvp-wbr-fish oil [Fish Oil] 1 cap PO HS 04/20/19 09/26/19 History pantoprazole [Protonix] 40 mg PO HS 04/20/19 09/26/19 History sodium chloride [Saline Nasal] 2 spray INTRANASAL DIRECTED PRN 04/20/19 09/26/19 History ondansetron 4 mg PO Q6H PRN #12 tab 04/21/19 09/26/19 Rx acetaminophen [Tylenol Extra 500 mg PO Q6H PRN 09/26/19 09/26/19 History Strength] ycerorfunguvb-JD-oktaxvvrpxxje 30 ml PO UD 09/26/19 09/26/19 History [Vicks NyQuil Cold/Flu (cpm)] Patient History Medical History (Updated 09/26/19 @ 11:16 by Bernie Da Silva) Chronic maxillary sinusitis Crohn's disease Depression with anxiety History of Clostridioides difficile colitis History of deviated nasal septum History of erythema nodosum History of uveitis Tobacco abuse Surgical History History of colectomy History of colonoscopy Last 07/2019 History of rhinoplasty Multiple nasal surgeries x3 Family History (Updated 09/26/19 @ 10:51 by Vivian Smith PA-C) Father Heart disease TIA (transient ischemic attack) Mother Heart disease FH: diverticulitis Sister Crohn's disease Diabetes Social History Preferred Language: Turkmen Communication Ability: Effective Parks And Recreation Manager Required: No Beliefs That Will Affect Care: None marital status: Single Current Living Situation: Significant Other Other Information That Helps Us Care for You: No Feels Safe at Home: Yes Safety Concerns: Feels Safe At This Time Smoking Status: Current every day smoker Tobacco Type: cigarettes ; Years Smoked: 35 ; Cigarettes Per Day: 10 ; Do You Dip or Chew Tobacco: No ; Second Hand Exposure: No ; Tobacco Cessation Education Requested by Patient: No Hx Alcohol Use: Yes Alcohol type Comment: Once a month Alcohol Intake Frequency: Rarely Hx Substance Use: Yes substance use type: marijuana Last Used Substance Other:: 3 to 4 weeks ago Review of Systems Review of Systems: ROS: Gen: Denies weakness, fevers, weight loss Eyes: No eye redness, or pain, no recent vision changes Resp: + SOB, + cough Cardio: No palpitations/irregular beats, no chest pain GI: + abdomen pain, diarrhea, no nausea/vomiting : Denies pain on urination Skin: No jaundice, itching or new rashes Physical Exam Constitutional: WD/WN, vitals as above Eyes: PERRL, conjunctivae normal, anicteric sclerae ENMT: external ear and nose normal, oropharynx normal Neck: trachea midline, no thyromegaly Respiratory: normal respiratory effort, lungs clear to auscultation Cardiovascular: RRR, no murmur, no edema Gastrointestinal (Abdomen): Inspection/Auscultation: abdomen normal to inspection Percussion/Palpation: abdomen soft Multiple surgical scares. No palpable masses. Skin: no rashes, warm and dry Neurologic: PERRL, EOMI, accommodation nl, no face palsy, no dysarthria Psychiatric: A+Ox3, euthymic affect Genitourinary: no vaginal lesions, no adnexal mass Results & Data Vital Signs (Past 12 Hours) Vital Signs Temp Pulse Pulse Resp BP BP Pulse Ox 09/26/19 11:24 36.7 C 85 20 120/76 92 09/26/19 11:09 82 16 115/66 92 09/26/19 10:45 81 16 115/66 92 09/26/19 09:58 84 16 124/69 97 09/26/19 09:20 80 16 102/55 L 91 09/26/19 09:13 77 18 91 09/26/19 08:28 88 L 09/26/19 07:41 37.6 C H 101 H 20 105/66 91 Laboratory Results WC 8, Hb 14, Hct 41, Platelets 332, Na 139, K 2.5, BUN 9. Cr 0.8 Diagnostic Findings CXR 09/26/19: Nonspecific mild interstitial thickening and minimal left basilar opacity.
[2019-09-26] MEDS: ALBUT/IPRATROP 3MG/0.5MG NEB 3 ML VIAL NEB SCH ×3 (11:45→19:02)
[2019-09-26] MEDS: NICOTINE 21 MG/24 HR TDSY TD SCH (12:14)
[2019-09-26] MEDS: cefTRIAXone SODIUM 2,000 MG in DEXTROSE 5% 50 ML IV SCH (12:14)
[2019-09-26] MEDS: DOXYCYCLINE HYCLATE 100 MG in DEXTROSE 5% 100 ML IV SCH ×2 (12:20→20:11)
--- NOTE | 2019-09-26 12:44 | Electrocardiogram Report ---
Test Reason : Blood Pressure : / mmHG Vent. Rate : 073 BPM Atrial Rate : 073 BPM P-R Int : 132 ms QRS Dur : 094 ms QT Int : 442 ms P-R-T Axes : 047 007 051 degrees QTc Int : 486 ms Normal sinus rhythm Prolonged QT Abnormal ECG When compared with ECG of 17-DEC-2012 17:09, No significant change was found Confirmed by Milton Mock ([id number]) on 09/26/2019 12:43:48 PM Referred By: REFERRED SELF Confirmed By:Milton Mock
[2019-09-26] MEDS ORDERED: OPTIRAY 320 125ml IV PRN (12:54)
--- NOTE | 2019-09-26 13:24 | CT Scan Report ---
CT abd pelvis oral and IV con CLINICAL HISTORY: 44 years-old Female presenting with abdominal pain, hx of IBD. TECHNIQUE: Multidetector CT of the abdomen and pelvis was performed after the administration of oral and intravenous contrast. IV contrast: 120 mL of Optiray 320. One or more dose lowering techniques we re used consistent with the principles of ALARA (as low as reasonably achievable), including automati c exposure control, mA or kV adjustment to individual patient size, and/or use of iterative reconstru ction. COMPARISON: 04/21/2019. CT DOSE (mGy.cm): The estimated cumulative dose is 696.72 mGy.cm. FINDINGS: Program Director Substance Abuse topogram: Unremarkable. Lung bases: Normal heart size. No pericardial or pleural effusion. Patchy round glass infiltrates in the left lower lobe increased from prior exam. This is on a background of minimal bibasilar atelectas is. Liver: Normal morphology. No liver lesion. Patent hepatic vasculature. Biliary: No intrahepatic or extrahepatic biliary ductal dilatation. Gallbladder contains gallstones. Pancreas: Mild parenchymal atrophy. Spleen: Normal. Adrenal glands: Normal. Kidneys and ureters: Normal. No hydronephrosis. Bladder: Normal. Pelvic organs: Uterus and ovaries normal. Bowel: Fluid in the colon suggests a diarrheal state. No perienteric or pericolonic inflammatory damon ge. Prominence of the vasa recta in the region of the sigmoid colon and rectum. There is mild wall th ickening of the rectum with mucosal hyperemia extending in a contiguous fashion proximally to involve the sigmoid colon and to lesser extent the descending colon. Post surgical changes of right hemicole ctomy. Patent enterocolonic anastomosis in the mid abdomen. No bowel obstruction. Peritoneal cavity: No free fluid or intraperitoneal gas. Lymph nodes: No enlarged lymph nodes in the abdomen or pelvis. Vasculature: Atherosclerosis of the normal caliber abdominal aorta. IVC patent. Abdominal wall: Normal. Musculoskeletal: Normal. IMPRESSION: 1. Nodular groundglass infiltrates in the left lower lobe concerning for mild inflammatory pneumonit is, aspiration, or developing pneumonia. This is on a background of minimal bibasilar atelectasis. 2. Postsurgical changes of right hemicolectomy. 3. Fluid in the colon suggests a diarrheal state. 4. Mild circumferential wall thickening and mucosal hyperemia involving the rectum, sigmoid colon, a nd descending colon. This is concerning for a mild acute on chronic colitis, likely related to the pa tieolivier's underlying inflammatory bowel disease. 5. Cholelithiasis. The report will be called/faxed according to standard departmental protocol. ACT 112: Negative or not required by law. Electronically signed by: Delfin Obregon M.D. 09/26/2019 1:23 PM
--- NOTE | 2019-09-26 13:27 | CT Scan Report ---
CHEST CTA for PULMONARY ARTERIES CT DOSE: HISTORY: Shortness of breath. Atypical chest pain. TECHNIQUE: Multiaxial CT images of the chest were performed following the intravenous administration of contrast to evaluate the pulmonary arteries. Maximal intensity projection images were also obtaine d. A dose lowering technique was utilized adhering to the principles of ALARA. COMPARISON STUDY: None. FINDINGS: Normal caliber thoracic aorta with no evidence for dissection. No filling defects within th e pulmonary arteries to suggest pulmonary embolus. The heart is normal in size. No pleural or pericar dial effusions. Normal esophagus. Please refer to the same day abdomen and pelvis CT for further eval uation of the abdominal structures. Mildly enlarged bilateral hilar lymph nodes measuring up to 1 cm in diameter. There are a few borderline-enlarged prevascular and subcarinal lymph nodes. The subcarin al lymph node measures 1.7 cm in short axis diameter. No suspicious lytic are blastic osseous lesions . No pneumothorax. The central airways are patent. Mild bronchial wall thickening. A few scattered pa tchy groundglass and nodular airspace opacities are seen throughout the lungs. Linear densities at th e lung bases favor subsegmental atelectasis. Mosaic attenuation within the lungs suggestive of mild a ir trapping. IMPRESSION: 1. No evidence for pulmonary embolus. 2. A few scattered patchy groundglass and nodular airspace opacity seen throughout the lungs. This fa vors a pneumonia. 3. Mosaic attenuation within the lungs suggestive of mild air trapping. 4. Mild bilateral hilar and mediastinal lymphadenopathy. This is nonspecific but could be reactive. 5. A [address] follow-up is recommended to ensure resolution of the above findings. ACT 112: Negative or not required by law. Electronically signed by: Jorge Smith M.D. 09/26/2019 1:25 PM
[2019-09-26] MEDS: LORazepam 0.5 MG TAB PO SCH ×2 (14:28→20:10)
[2019-09-26] MEDS: HYDROmorphone INJ 0.5 MG/0.5 ML SYR IV PRN ×2 (14:28→20:24)
[2019-09-26] MEDS ORDERED: metroNIDAZOLE 500 MG/100 ML BAG IV SCH (14:30)
[2019-09-26] MEDS: methylPREDNISolone 40 MG in SYRINGE 0 ML IV SCH (15:35)
[2019-09-26] MEDS ORDERED: POTASSIUM CHLORIDE 20 MEQ TABCR PO ONE (16:00)
[2019-09-26] MEDS: ESCITALOPRAM OXALATE 10 MG TAB PO SCH (20:10)
[2019-09-26] MEDS: BuPROPion SR 150 MG TABCR PO SCH (20:10)
[2019-09-26] MEDS: OMEGA-3 (PURIFIED FISH OIL) 1 GM CAP PO SCH (20:10)
[2019-09-26] MEDS: PANTOprazole 40 MG TAB PO SCH (20:10)
[2019-09-26] MEDS: guaiFENesin 600 MG TABCR PO SCH (20:11)
[2019-09-26] MEDS: CALCIUM 600MG + VIT D 400 IU TAB PO SCH (20:11)
[2019-09-26] MEDS ORDERED: MAGNESIUM SULFATE / D5W 1 GM/100 ML BAG IV STA (20:39)
[2019-09-26] MEDS ORDERED: ENOXAPARIN INJ 40 MG/0.4 ML SYR SQ SCH (21:00)
[2019-09-26] MEDS ORDERED: NON-FORMULARY MEDICATION (Azelastine 2 SPRAYS) INTNAS SCH (21:00)
[2019-09-26] MEDS: ONDANSETRON INJ 2 MG/ML 2 ML VIAL IV PRN (22:07)
[2019-09-26] MEDS ORDERED: LORazepam 0.5 MG TAB PO STA (22:16)
[2019-09-27] MEDS: methylPREDNISolone 40 MG in SYRINGE 0 ML IV SCH ×2 (00:05→09:40)
[2019-09-27] MEDS: HYDROmorphone INJ 0.5 MG/0.5 ML SYR IV PRN ×3 (04:31→20:57)
[2019-09-27] MEDS ORDERED: KETOROLAC TROMETHAMINE 15 MG/ML VIAL IV ONE (05:11)
[2019-09-27] MEDS: ALBUT/IPRATROP 3MG/0.5MG NEB 3 ML VIAL NEB SCH ×5 (05:42→18:54)
[2019-09-27] MEDS: ONDANSETRON INJ 2 MG/ML 2 ML VIAL IV PRN (06:06)
[2019-09-27] MEDS: TRAMADOL HCL 50 MG TABLET PO PRN (06:06)
[2019-09-27 06:47] LABS: Hematocrit (blood only) 37.7 % (37-47); Hemoglobin 12.8 g/dL (12.0-16.0); Mean Corpuscular Hemoglobin 31.2 pg (25-34); Mean Platelet Volume 9.7 fL (7.4-10.4); Platelet Count 247 K/uL (130-400); RDW Coefficient of Variation 14.2 % (11.5-14.5); RDW Standard Deviation 48.4 fL (36.4-46.3); White Blood Count 12.27 K/uL (4.8-10.8)
[2019-09-27 07:10] LABS: Basophils # (auto) 0.04 K/uL (0-0.2); Basophils % (auto) 0.3 %; Immature Granulocytes # (auto) 0.03 K/uL (0.00-0.02); Immature Granulocytes % (auto) 0.2 %; Lymphocytes # (auto) 1.71 K/uL (1.2-3.4); Lymphocytes % (auto) 13.9 %; Monocytes # (auto) 0.59 K/uL (0.11-0.59); Monocytes % (auto) 4.8 %; Neutrophils % (auto) 80.8 %
[2019-09-27 07:15] LABS: BUN Creatinine Ratio 8.4 (10-20); Creatinine Clr Calc Pharmacy 123.3 ml/min; Est GFR (African American) 124.7; Est GFR (Non-African American) 107.6; Potassium 3.5 mmol/L (3.5-5.1)
[2019-09-27] MEDS ORDERED: POTASSIUM CHLORIDE 20 MEQ TABCR PO STA (08:38)
[2019-09-27] MEDS: guaiFENesin 600 MG TABCR PO SCH ×2 (08:51→20:56)
[2019-09-27] MEDS: LORazepam 0.5 MG TAB PO SCH ×3 (08:51→20:56)
[2019-09-27] MEDS: NICOTINE 21 MG/24 HR TDSY TD SCH (08:52)
[2019-09-27] MEDS: cefTRIAXone SODIUM 2,000 MG in DEXTROSE 5% 50 ML IV SCH (08:54)
[2019-09-27] MEDS: DOXYCYCLINE HYCLATE 100 MG in DEXTROSE 5% 100 ML IV SCH ×2 (08:54→21:01)
[2019-09-27] MEDS: CHOLESTYRAMINE LIGHT 4 GM PKT PO SCH ×2 (09:44→20:58)
--- NOTE | 2019-09-27 12:03 | Pulmonary Consultation ---
Date of Consultation September 27, 2019 Assessment & Plan (1) Acute hypoxemic respiratory failure: The patient has nodular groundglass changes on her CT chest. She does have a history of Crohn's colitis. She is also a smoker. These findings may be insurance follow up representative of an idiopathic interstitial pneumonia. She did have infectious symptoms earlier in the course of her respiratory illness. Certainly an atypical infection or viral infection is possible. She is also been on immunosuppressive medications previously which put her at risk for atypical infections or pneumonitis. She does have Crohn's disease which also puts her at risk for inflammatory lung disease. She is an active smoker and her symptoms may also be insurance follow up representative of underlying desquamative interstitial pneumonia or respiratory bronchiolitis interstitial lung disease. We will perform a bronchoscopy with BAL and possible biopsies to rule out infectious etiology, eosinophilic pneumonia and other possible etiologies. (2) Abnormal CT scan, chest: (3) Crohn's disease: Gastrointestinal tract location: unspecified location History of Present Illness Reason for Consultation: Groundglass opacities and hypoxemic respiratory failure Requesting Physician: Dr. Salgado Attending Physician: Jose Alberto Salgado MD History of Present Illness This is a 44-year-old female with history of Crohn's colitis (previously on Remicade, 6-MP, Cimzia and Humira), depression and anxiety who presents to the hospital due to ongoing shortness of breath and coughing. Patient notes that her symptoms started roughly 2 weeks ago with muscle aches and fevers upwards of 102 F. She notes that she has not had fevers since at least , but earlier this week and she had episodes of severe shortness of breath at night which prompted her to come to the hospital. She denies any productive cough. She does have an occasional nonproductive cough. She does not feel that she has improved at all since being admitted yesterday. She notes that her abdominal pain is quite severe since being started on broad-spectrum antibiotics. She is currently on ceftriaxone and doxycycline. She is a smoker and has smoked since the age of 14. She smokes anywhere from half a pack to slightly less. She has been smoking less over the last couple weeks. She does note a history of bronchitis a long time ago and used her albuterol inhaler that she was prescribed at that time with little improvement in symptoms. She does have some trouble with insomnia and uses marijuana periodically to help with her sleeping, but she notes that this does not improve her sleeping much. She does not vape. She lives with a roommate in [place]. She has 2 dogs and 1 cat. She denies any allergies to the animals. She denies any dust or mold exposure. No open water sources or hot tubs in her home. 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 She has a masters degree. She has no travel recently outside of [place]. There is electric heating from the floor boards in her home. She has been around numerous sick contacts. Work-up here has been revealing for leukocytosis of 12,270, but this was after administration of Solu-Medrol. On admission her white count was only 8440. She had an absolute count peripheral eosinophilia of 150 on admission. Chemistries and renal function have been unrevealing. Procalcitonin was negative on admission. Influenza testing for type a and type B were negative. Chest x-ray on admission demonstrated nonspecific mild interstitial thickening and minimal left basilar opacity. CT abdomen and pelvis on admission demonstrated a nodular groundglass infiltrate in the left lower lobe and mild circumferential wall thickening and mucosal hyperemia involving the rectum, sigmoid colon and descending colon. CT chest was revealing for a few scattered patchy groundglass nodular airspace opacities throughout the lungs. There is also some mosaic attenuation seen. She did have an QUENTIN screen and rheumatoid factor checked in November 2017 which were negative. Allergies Allergy/AdvReac Type Severity Reaction Status Date / Time No Known Allergies Allergy Unknown Verified 09/26/19 08:41 Home Medications Home Medications Medication Instructions Recorded Confirmed Type albuterol sulfate [Proventil HFA] 2 puff INHALATION Q6H PRN 04/20/19 09/26/19 History azelastine 2 spray INTRANASAL BID 04/20/19 09/26/19 History bupropion HCl 300 mg PO HS 04/20/19 09/26/19 History calcium carbonate-vitamin D3 1 tab PO HS 04/20/19 09/26/19 History [Calcium 500 + D] escitalopram oxalate [Lexapro] 10 mg PO HS 04/20/19 09/26/19 History lorazepam 0.5 mg PO TID 04/20/19 09/26/19 History omega 6-zci-zmp-fish oil [Fish Oil] 1 cap PO HS 04/20/19 09/26/19 History pantoprazole [Protonix] 40 mg PO HS 04/20/19 09/26/19 History sodium chloride [Saline Nasal] 2 spray INTRANASAL DIRECTED PRN 04/20/19 09/26/19 History ondansetron 4 mg PO Q6H PRN #12 tab 04/21/19 09/26/19 Rx acetaminophen [Tylenol Extra 500 mg PO Q6H PRN 09/26/19 09/26/19 History Strength] lmxfejclcnqmn-MR-yasfmznagzpnx 30 ml PO UD 09/26/19 09/26/19 History [Vicks NyQuil Cold/Flu (cpm)] Patient History Medical History Chronic maxillary sinusitis Crohn's disease Depression with anxiety History of Clostridioides difficile colitis History of deviated nasal septum History of erythema nodosum History of uveitis Tobacco abuse Surgical History History of colectomy History of colonoscopy Last 07/2019 History of rhinoplasty Multiple nasal surgeries x3 Family History Father Heart disease TIA (transient ischemic attack) Mother Heart disease FH: diverticulitis Sister Crohn's disease Diabetes Social History Preferred Language: Croatian Communication Ability: Effective 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 Beliefs That Will Affect Care: None marital status: Single Current Living Situation: Significant Other Other Information That Helps Us Care for You: No Feels Safe at Home: Yes Safety Concerns: Feels Safe At This Time Smoking Status: Current every day smoker Tobacco Type: cigarettes ; Years Smoked: 35 ; Cigarettes Per Day: 10 ; Do You Dip or Chew Tobacco: No ; Second Hand Exposure: No ; Tobacco Cessation Education Requested by Patient: No Hx Alcohol Use: Yes Alcohol type Comment: Once a month Alcohol Intake Frequency: Rarely Hx Substance Use: Yes substance use type: marijuana Last Used Substance Other:: 3 to 4 weeks ago Review of Systems Review of Systems: All systems reviewed & are unremarkable except as noted in HPI & below Physical Exam Constitutional: Patient is laying in bed. She is in no apparent distress. She has a nasal cannula in place. Eyes: PERRL, conjunctivae normal, anicteric sclerae ENMT: external ear and nose normal, oropharynx normal Neck: normal visual inspection Respiratory: no labored breathing and no retractions Auscultation: + rhonchi; no wheezes Cardiovascular: RRR, no murmur, no edema Gastrointestinal (Abdomen): Inspection/Auscultation: normal bowel sounds Percussion/Palpation: + abdomen tender; no guarding Musculoskeletal: no cyanosis or clubbing, extremities motor strength 5/5 Skin: no rashes, warm and dry Neurologic: PERRL, EOMI, accommodation nl, no face palsy, no dysarthria CN's II-XI intact bilaterally Psychiatric: A+Ox3, euthymic affect Lymphatic: no lymphadenopathy Results & Data ([facility]) Vital Signs (Past 12 Hours) Vital Signs Temp Pulse Pulse Resp BP BP Pulse Ox 09/27/19 11:34 98.8 F 76 18 102/59 L 100 09/27/19 07:13 98.1 F 96 H 17 120/59 L 91 09/27/19 07:00 95 H 09/27/19 06:48 83 19 92 09/27/19 05:44 92 H 16 97 09/27/19 04:07 98.2 F 81 18 115/68 93 09/27/19 00:38 84 I personally reviewed the patient's pertinent labs, chest imaging and previous notes. PG Care Time/CCT Total # of Minutes Spent Total Time Spent with Patient: Total time spent is greater than 50% in coordination of care (as documented) at patient's floor/unit and/or counseling patient: Coding Level of Care Code 30951 Inpt Consult Level 4 Diagnoses Acute hypoxemic respiratory failure J96.[address] scan, chest R93.89 Crohn's disease K50.90 Gastrointestinal tract location: unspecified location
--- NOTE | 2019-09-27 18:33 | Hospitalist Progress Note ---
Date of Service September 27, 2019 Assessment & Plan (1) Hypoxia: -This is a 44-year-old female who has significant past medical history of Crohn's disease, depression with anxiety, tobacco abuse, vitamin D deficiency, chronic maxillary sinusitis who presents to ED secondary to fever x5 days; shortness of breath -In ED upon arrival patient was hypoxic requiring 5 L of O2 to maintain normal oxygen saturation. He had mild elevation in temp 37.6. Was otherwise hemodynamically stable. CBC relatively unremarkable except mild elevation in total absolute lymphocytes 3.86. CMP significant for hypokalemia 2.5, glucose 113, negative for influenza. Chest x-ray concerning for minimal left basilar opacity versus thickening. She received 1 L of IVF, nebulizer treatment, 125 mg Solu-Medrol and 20 M EQ of KCl. She was then continued on IV antibiotics Rocephin and Doxycycline, duonebs, and additional solumedrol -09/27/2019 patient breathing on nasal cannula 2 liters/min which is a significant improvement than oxygen use on presentation. She is empirically being treated as if she has pneumonia with respiratory antibiotics but review of her admission lung imaging is not typical for a pneumonia appearance. 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 Pulmonary consult was requested for further assistance with diagnosis. Patient is NPO after midnight because pulmonary doctor is trying to clarify diagnosis. (2) Pneumonia: -possible pneumonia, management as above (3) Hypokalemia: -admission serum potassium 2.5 -after repletion, recent serum potassium is 3.5 (4) Abdominal pain: -Patient presenting with worsened abdominal pain and increased frequency. She denies any blood in stool. Elicits symptoms similar to prior exacerbation of Crohn's and history of C. difficile. She has not been taking any immunosuppressants as outpatient. Last seen by GI on 08/08/19 had colonoscopy in 07/2019 -C.difficile negative -no abdominal symptoms on 09/27/2019 (5) Crohn's disease: as per gastroenterology: "evidence of active disease on imaging and colonoscopy, she does not appear to be in a significant Crohn's flare. Would hold on prescribing a steroid taper. No evidence of abscess - thus no indication for Cipro/Flagyl." (6) Tobacco abuse: -Encourage smoking cessation -nicotine patch (7) Depression with anxiety: Mood stable Continue Wellbutrin and Lexapro Lorazepam 3 times daily, hold for sedation (8) DVT prophylaxis: SCDs Subjective patient breathing on nasal cannula 2 liters/min which is a significant improvement than oxygen use on presentation. She is empirically being treated as if she has pneumonia but review of her admission lung imaging is not typical for a pneumonia appearance. 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 Pulmonary consult was requested for further assistance with diagnosis. Patient is NPO after midnight because pulmonary doctor is trying to clarify diagnosis Patient agreeable for lung bronchoscopy. no chest pain. no nausea. no vomiting. no palpitations. no abdomen pain. no dizziness. no lightheadedness Review of Systems Review of Systems: All systems reviewed & are unremarkable except as noted in HPI & below Physical Exam Constitutional: WD/WN, vitals as above comfortable Eyes: PERRL, conjunctivae normal, anicteric sclerae EOM intact bilaterally ENMT: external ear and nose normal, oropharynx normal Neck: trachea midline, no thyromegaly normal visual inspection Respiratory: normal respiratory effort Cardiovascular: RRR, no murmur, no edema Gastrointestinal (Abdomen): normal bowel sounds, soft, nontender, no hepatosplenomegaly Musculoskeletal: Head/Neck/Chest: normocephalic and head atraumatic Neurologic: PERRL, EOMI, accommodation nl, no face palsy, no dysarthria CN's II-XI intact bilaterally Psychiatric: A+Ox3, euthymic affect Results & Data ([facility]) Vital Signs (Past 12 Hours) Vital Signs Temp Pulse Pulse Resp BP BP Pulse Ox 09/27/19 17:33 85 09/27/19 15:33 36.6 C 92 H 18 123/67 90 09/27/19 15:11 71 18 96 09/27/19 11:34 36.7 C 89 18 124/67 93 09/27/19 07:13 36.7 C 96 H 17 120/59 L 91 09/27/19 07:00 95 H 09/27/19 06:48 83 19 92 (1) Pneumonia Laterality: left Lung location: lower lobe of lung Pneumonia type: due to unspecified organism Qualified Code(s): J18.9 - Pneumonia, unspecified organism (2) Crohn's disease Gastrointestinal tract location: unspecified location
[2019-09-27] MEDS: CALCIUM 600MG + VIT D 400 IU TAB PO SCH (20:56)
[2019-09-27] MEDS: PANTOprazole 40 MG TAB PO SCH (20:56)
[2019-09-27] MEDS: OMEGA-3 (PURIFIED FISH OIL) 1 GM CAP PO SCH (20:57)
[2019-09-27] MEDS: BuPROPion SR 150 MG TABCR PO SCH (20:57)
[2019-09-27] MEDS: ESCITALOPRAM OXALATE 10 MG TAB PO SCH (20:57)
[2019-09-28] MEDS: HYDROmorphone INJ 0.5 MG/0.5 ML SYR IV PRN ×3 (03:47→20:33)
[2019-09-28] MEDS: ALBUT/IPRATROP 3MG/0.5MG NEB 3 ML VIAL NEB SCH ×3 (06:55→15:28)
--- NOTE | 2019-09-28 07:55 | History & Physical Bridge Note ---
Date of Service September 28, 2019 History & Physical Bridge Note I have examined the patient, reviewed the History & Physical and in the interval since the performance of the History & Physical I have noted the following changes of clinical significance: no changes noted
--- NOTE | 2019-09-28 07:56 | Pre Anesthesia Assessment ---
Date of Service September 28, 2019 Pre Sedation Assessment Vital Signs Temp Pulse Pulse Resp BP BP Pulse Ox 09/28/19 07:44 97.5 F L 81 17 126/74 91 09/28/19 06:58 70 16 94 09/28/19 03:37 98.1 F 78 14 119/70 98 09/28/19 00:05 61 09/27/19 23:03 98 F 83 16 126/74 96 09/27/19 19:29 98.1 F 91 H 18 112/59 L 93 09/27/19 18:54 79 16 97 09/27/19 17:33 85 09/27/19 15:33 97.9 F 92 H 18 123/67 90 09/27/19 15:11 71 18 96 09/27/19 11:34 98.1 F 89 18 124/67 93 Pre-Sedation Airway Assessment Smoking Status: Current every day smoker Notes The planned sedation has been discussed with the patient. Informed Consent was obtained. I have identified the patient, determined the appropriateness of sedation and have assessed the patient immediately prior to the procedure. All medicine(s) and interventions are by my order.
[2019-09-28] MEDS ORDERED: LIDOCAINE HCL 2% (LOCAL) INJ 50 ML VIAL INFIL STA (09:01)
[2019-09-28] MEDS ORDERED: OXYMETAZOLINE 0.05% 30 ML BTL ONE (09:01)
[2019-09-28] MEDS ORDERED: LIDOCAINE 4% INH SOLN 4 ML BTL NAE ONE (09:01)
[2019-09-28] MEDS ORDERED: LIDOCAINE HCL VISCOUS SOLN 2% 15 ML UDC TOP ONE (09:01)
[2019-09-28] MEDS ORDERED: MIDAZOLAM HCL 1 MG/ML 2ML VIAL IV STA (09:01)
[2019-09-28] MEDS ORDERED: fentaNYL citrate 100 MCG/2 ML VIAL IV ONE (09:01)
--- NOTE | 2019-09-28 09:02 | Procedure Note ---
Procedure Note: Bronchoscopy Procedure The sedation began at 8:19 AM and ended at 9:01 AM PREOPERATIVE DIAGNOSIS: Groundglass opacities on CT chest and pneumonia POSTOPERATIVE DIAGNOSIS: Groundglass opacities on CT chest with pneumonia PROCEDURE PERFORMED: Flexible fiberoptic bronchoscopy with bronchial lavage and transbronchial biopsy COMPLICATIONS: None. INDICATION: Rule out infectious etiology and eosinophilic pneumonia PROCEDURE: After obtaining an informed consent, the patient was brought to the Bronchoscopy Suite. The patient had appropriate oxygen, blood pressure, heart rate, and respiratory rate monitoring applied and monitored continuously throughout the procedure. Supplemental oxygen via nasal cannula as per nursing records was applied to the nasopharynx with adequate saturations achieved. Topical anesthesia with nebulized 1% lidocaine was achieved. Subsequent to this, the patient was premedicated with 10 mg of midazolam and 225 Mcg of fentanyl. The oropharynx and larynx were well visualized and showed dominant female with white secretions. There was normal vocal cord motion without masses or lesions. Additional topical anesthesia with 1% lidocaine was applied to the trachea and bernardo. The trachea appeared normal.The bronchoscope was then advanced through the bernardo, which was sharp. The scope was then advanced into the right main stem and each segment, subsegement in the right upper lobe, right middle lobe and right lower lobe was visualized. There was moderate amounts of thick white secretions noted. There were no other findings including secretions. The bronchoscope was subsequently withdrawn and advanced into the left mainstem. Again, each segment and subsegment was well visualized. No specific masses or other lesions were identified throughout the tracheobronchial tree on the left. There was moderate amounts of thick and white secretions noted. The bronchoscope was then wedged in the lingula and bronchoalveolar lavage samples were obtained. 120 ml of saline was instilled and 55 ml of fluid was aspirated back.The bronchoscope was withdrawn and the area was suctioned clear. The bronchoscope was then re- advanced into the lingula and multiple transbronchial biopsies were taken blindly from the lingula. Minimal hemorrhage was identified and suctioned clear without difficulty. Cold saline was used to achieve adequate hemostasis. The bronchoscope was then withdrawn to the mainstem. The area was suctioned clear. The bronchoscope was then withdrawn. The patient tolerated the procedure well without evidence of desaturation or complications. Bronchoalveolar lavage samples were sent for cell count, Gram stain and bacterial culture, AFB culture and smear, fungal culture and smear and cytology. Transbronchial biopsies were sent for pathology Recommendations: Follow cell count, cultures and pathology
--- NOTE | 2019-09-28 09:05 | Post Anesthesia Assessment ---
Date of Service September 28, 2019 Post Sedation Assessment Vital Signs Temp Pulse Pulse Resp BP BP Pulse Ox 09/28/19 09:00 85 20 129/71 94 09/28/19 08:55 80 16 118/78 98 09/28/19 08:50 80 16 123/75 90 09/28/19 08:45 80 16 111/68 89 L 09/28/19 08:40 78 16 133/76 91 09/28/19 08:35 94 H 20 138/73 97 09/28/19 08:30 75 16 139/72 92 09/28/19 08:25 82 20 137/80 93 09/28/19 08:20 81 20 142/91 H 94 09/28/19 08:15 77 20 142/81 H 93 09/28/19 08:10 75 20 145/80 H 93 09/28/19 07:44 97.5 F L 81 17 126/74 91 09/28/19 06:58 70 16 94 09/28/19 03:37 98.1 F 78 14 119/70 98 09/28/19 00:05 61 09/27/19 23:03 98 F 83 16 126/74 96 09/27/19 19:29 98.1 F 91 H 18 112/59 L 93 09/27/19 18:54 79 16 97 09/27/19 17:33 85 09/27/19 15:33 97.9 F 92 H 18 123/67 90 09/27/19 15:11 71 18 96 09/27/19 11:34 98.1 F 89 18 124/67 93 Recovery Score Activity: Moves 4 extremities Respiration: Deep Breath/Cough Circulation: +/-20% PreAnes Value Consciousness: Arouseable (by name) Oxygen Saturation: O2 needed for >90% Post Anesthesia Score: 8 Discharge Sedation Level of Care: Fast Track Phase II Post Sedation Plan On clinical assessment, the patient appears to have tolerated the sedation without complications. Patient is recovering as anticipated. Patient will continue to be monitored by nursing and may be discharged when sedation discharge criteria are met per below protocol. Upon Completions of procedure up to 15 minutes continue every 5 minute vital signs and the P.A.R. score; then discharge to a Phase I or Fast Track to Phase II per the following guidelines: * Discharge Patient to appropriate Phase II area if PAR is 8 or greater or return to pre- procedure baseline. The post - procedure orders will be as directed. * If PAR score is less than 8 or not return to pre-procedure baseline then p atient will follow Phase I monitoring till PAR is reached for Phase II. The Phase I may be done in procedure room or may call to secure a Phase I area. * If naloxone or flumazenil are used for reversal, hold in Phase I for continued monitoring from when last reversal dose was given for a minimum of 60 minutes or longer pending the nurse and/or physician discretion of patient condition before discharge to Phase II. Please call the Sedation Physician to re-evaluate and complete post-note for discharge to Phase II area. Do NOT discharge from procedure sedation or Phase 1 until post- sedation evaluation note is complete by procedure /sedation MD Sedation Discharge Instructions to be given to the patient at discharge to home.
[2019-09-28 10:47] LABS: Eosinophil Body Fluid Man 1 %; Fluid Mono/Macrophage 73 %; Lymphocyte Body Fluid Man 4 %; Neutrophil Body Fluid Man 22 %
[2019-09-28] MEDS: cefTRIAXone SODIUM 2,000 MG in DEXTROSE 5% 50 ML IV SCH (11:21)
[2019-09-28] MEDS: DOXYCYCLINE HYCLATE 100 MG in DEXTROSE 5% 100 ML IV SCH ×2 (11:22→22:02)
[2019-09-28] MEDS: CHOLESTYRAMINE LIGHT 4 GM PKT PO SCH ×2 (11:22→20:33)
[2019-09-28] MEDS: LORazepam 0.5 MG TAB PO SCH ×3 (11:24→20:33)
[2019-09-28] MEDS: NICOTINE 21 MG/24 HR TDSY TD SCH (11:24)
[2019-09-28] MEDS: guaiFENesin 600 MG TABCR PO SCH ×2 (11:24→20:33)
[2019-09-28] MEDS: TRAMADOL HCL 50 MG TABLET PO PRN (11:32)
--- NOTE | 2019-09-28 15:34 | Pulmonology Progress Note ---
Date of Service September 28, 2019 Assessment & Plan (1) Acute hypoxemic respiratory failure: I did perform a bronchoscopy with BAL and biopsies today. There is no significant eosinophilic component on the cell count. I did see some mild to moderate amount of secretions. Interestingly there was not a significant neutrophilia either on the cell count. Hopefully we will be able to identify an organism and maybe be transbronchial biopsies will be more illuminating as well. Recommend a 7-day course of antibiotics. We will decide upon whether we need to add steroids based on the outcome of the biopsy results. Again, the groundglass opacities that we are seeing may be a sequelae of smoking-related interstitial lung disease such as RB-ILD or DIP. She also likely has some degree of airway trapping and smoking-related lung disease such as COPD or bronchitis. I strongly recommend smoking cessation and follow-up in the pulmonary clinic with full PFTs. (2) Abnormal CT scan, chest: (3) Crohn's disease: Gastrointestinal tract location: unspecified location Subjective Patient seen and examined today. She continues to cough and have shortness of breath. She is requiring supplemental oxygen. She denies any chest pain. No nausea or vomiting. Physical Exam Eyes: PERRL, conjunctivae normal, anicteric sclerae ENMT: external ear and nose normal, oropharynx normal Neck: normal visual inspection Respiratory: no labored breathing and no retractions Auscultation: + rhonchi; no wheezes Cardiovascular: RRR, no murmur, no edema Gastrointestinal (Abdomen): Inspection/Auscultation: normal bowel sounds Percussion/Palpation: + abdomen tender; no guarding Musculoskeletal: no cyanosis or clubbing, extremities motor strength 5/5 Skin: no rashes, warm and dry Neurologic: PERRL, EOMI, accommodation nl, no face palsy, no dysarthria CN's II-XI intact bilaterally Psychiatric: A+Ox3, euthymic affect Lymphatic: no lymphadenopathy Results & Data ([facility]) Vital Signs (Past 12 Hours) Vital Signs Temp Pulse Pulse Resp BP Pulse Ox 09/28/19 11:39 79 09/28/19 11:09 97.7 F 71 18 128/77 93 09/28/19 10:51 73 20 94 09/28/19 10:03 98.2 F 74 20 115/73 93 09/28/19 09:33 98.2 F 78 20 98 09/28/19 09:15 83 16 119/87 93 09/28/19 09:10 82 20 122/69 91 09/28/19 09:05 89 18 114/71 93 09/28/19 09:03 74 09/28/19 09:00 85 20 129/71 94 09/28/19 08:55 80 16 118/78 98 09/28/19 08:50 80 16 123/75 90 09/28/19 08:45 80 16 111/68 89 L 09/28/19 08:40 78 16 133/76 91 09/28/19 08:35 94 H 20 138/73 97 09/28/19 08:30 75 16 139/72 92 09/28/19 08:25 82 20 137/80 93 09/28/19 08:20 81 20 142/91 H 94 09/28/19 08:15 77 20 142/81 H 93 09/28/19 08:10 75 20 145/80 H 93 09/28/19 07:44 97.5 F L 81 17 126/74 91 09/28/19 06:58 70 16 94 09/28/19 03:37 98.1 F 78 14 119/70 98 PG Care Time/CCT Total # of Minutes Spent Total Time Spent with Patient: Total time spent is greater than 50% in coordination of care (as documented) at patient's floor/unit and/or counseling patient: Coding Level of Care Code 70421 Subseq Hosp Care Lvl 3 Diagnoses Acute hypoxemic respiratory failure J96.[address] scan, chest R93.89 Crohn's disease K50.90 Gastrointestinal tract location: unspecified location
[2019-09-28] MEDS ORDERED: ALBUT/IPRATROP 3MG/0.5MG NEB 3 ML VIAL NEB PRN (15:52)
--- NOTE | 2019-09-28 15:58 | Hospitalist Progress Note ---
Date of Service September 28, 2019 Assessment & Plan (1) Hypoxia: -This is a 44-year-old female who has significant past medical history of Crohn's disease, depression with anxiety, tobacco abuse, vitamin D deficiency, chronic maxillary sinusitis who presents to ED secondary to fever x5 days; shortness of breath -In ED upon arrival patient was hypoxic requiring 5 L of O2 to maintain normal oxygen saturation. He had mild elevation in temp 37.6. Was otherwise hemodynamically stable. CBC relatively unremarkable except mild elevation in total absolute lymphocytes 3.86. CMP significant for hypokalemia 2.5, glucose 113, negative for influenza. Chest x-ray concerning for minimal left basilar opacity versus thickening. She received 1 L of IVF, nebulizer treatment, 125 mg Solu-Medrol and 20 M EQ of KCl. She was then continued on IV antibiotics Rocephin and Doxycycline, duonebs, and additional solumedrol -09/27/2019: patient breathing on nasal cannula 2 liters/min which is a significant improvement than oxygen use on presentation. She is empirically being treated as if she has pneumonia with respiratory antibiotics but review of her admission lung imaging is not typical for a pneumonia appearance. 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 Pulmonary consult was requested for further assistance with diagnosis. -09/28/2019 patient is s/p bronchoscopy. "There was moderate amounts of thick white secretions noted. There were no other findings including secretions. The bronchoscope was subsequently withdrawn and advanced into the left mainstem. Again, each segment and subsegment was well visualized. No specific masses or other lesions were identified throughout the tracheobronchial tree on the left. There was moderate amounts of thick and white secretions noted. The bronchoscope was then wedged in the lingula and bronchoalveolar lavage samples were obtained. 120 ml of saline was instilled and 55 ml of fluid was aspirated back.The bronchoscope was withdrawn and the area was suctioned clear. The bronchoscope was then re-advanced into the lingula and multiple transbronchial biopsies were taken blindly from the lingula. Minimal hemorrhage was identified and suctioned clear without difficulty. Cold saline was used to achieve adequate hemostasis. The bronchoscope was then withdrawn to the mainstem. The area was suctioned clear. The bronchoscope was then withdrawn. The patient tolerated the procedure well without evidence of desaturation or complications. Bronchoalveolar lavage samples were sent for cell count, Gram stain and bacterial culture, AFB culture and smear, fungal culture and smear and cytology. Transbronchial biopsies were sent for pathology" -because pulmonary physician sent AFB culture and smear and because patient may in the future to be on immunosuppressants for Crohn's disease, airborne precautions are instituted. continue Rocephin and Doxycycline for now and de- escalate duonebs to prn, monitor oxygen requirements (2) Pneumonia: -possible pneumonia, management as above (3) Abdominal pain: -Patient presenting with worsened abdominal pain and increased frequency. She denies any blood in stool. Elicits symptoms similar to prior exacerbation of Crohn's and history of C. difficile. She has not been taking any immunosuppressants as outpatient. Last seen by GI on 08/08/19 had colonoscopy in 07/2019 -C.difficile negative -some abdominal pain symptoms but patient appears to be tolerating discomforts (4) Crohn's disease: as per gastroenterology: "evidence of active disease on imaging and colonoscopy, she does not appear to be in a significant Crohn's flare. Would hold on prescribing a steroid taper. No evidence of abscess - thus no ind ication for Cipro/Flagyl." (5) Hypokalemia: -admission serum potassium 2.5 -after repletion, recent serum potassium is 3.5 on 09/27/2019. check the labs (6) Tobacco abuse: -Encourage smoking cessation -nicotine patch (7) Depression with anxiety: Mood stable Continue Wellbutrin and Lexapro Lorazepam 3 times daily with hold for sedation (8) DVT prophylaxis: SCDs Subjective -some abdominal pain symptoms but patient appears to be tolerating discomforts. s/p bronchoscopy and no respiratory distress. patient encouraged to walk in the room with the airborne precautions in place. no chest pain. no vomiting. no dizziness. no headache. no wheezing on lung exam Review of Systems Review of Systems: All systems reviewed & are unremarkable except as noted in HPI & below Physical Exam Constitutional: WD/WN, vitals as above comfortable Eyes: PERRL, conjunctivae normal, anicteric sclerae EOM intact bilaterally ENMT: external ear and nose normal, oropharynx normal Neck: trachea midline, no thyromegaly normal visual inspection Respiratory: normal respiratory effort Cardiovascular: RRR, no murmur, no edema Gastrointestinal (Abdomen): normal bowel sounds, soft, nontender, no hepatosplenomegaly Musculoskeletal: Head/Neck/Chest: normocephalic and head atraumatic Neurologic: PERRL, EOMI, accommodation nl, no face palsy, no dysarthria CN's II-XI intact bilaterally Psychiatric: A+Ox3, euthymic affect Results & Data ([facility]) Vital Signs (Past 12 Hours) Vital Signs Temp Pulse Pulse Resp BP Pulse Ox 09/28/19 15:47 36.6 C 72 18 144/86 H 93 09/28/19 15:32 78 18 96 09/28/19 11:39 79 09/28/19 11:09 36.5 C 71 18 128/77 93 09/28/19 10:51 73 20 94 09/28/19 10:03 36.8 C 74 20 115/73 93 09/28/19 09:33 36.8 C 78 20 98 09/28/19 09:15 83 16 119/87 93 09/28/19 09:10 82 20 122/69 91 09/28/19 09:05 89 18 114/71 93 09/28/19 09:03 74 09/28/19 09:00 85 20 129/71 94 09/28/19 08:55 80 16 118/78 98 09/28/19 08:50 80 16 123/75 90 09/28/19 08:45 80 16 111/68 89 L 09/28/19 08:40 78 16 133/76 91 09/28/19 08:35 94 H 20 138/73 97 09/28/19 08:30 75 16 139/72 92 09/28/19 08:25 82 20 137/80 93 09/28/19 08:20 81 20 142/91 H 94 09/28/19 08:15 77 20 142/81 H 93 09/28/19 08:10 75 20 145/80 H 93 09/28/19 07:44 36.4 C L 81 17 126/74 91 09/28/19 06:58 70 16 94 (1) Pneumonia Laterality: left Lung location: lower lobe of lung Pneumonia type: due to unspecified organism Qualified Code(s): J18.9 - Pneumonia, unspecified organism (2) Crohn's disease Gastrointestinal tract location: unspecified location
[2019-09-28 16:18] LABS: Basophils # (auto) 0.03 K/uL (0-0.2); Basophils % (auto) 0.3 %; Eosinophils # (auto) 0.07 K/uL (0-0.5); Eosinophils % (auto) 0.6 %; Hematocrit (blood only) 35.7 % (37-47); Hemoglobin 11.8 g/dL (12.0-16.0); Immature Granulocytes # (auto) 0.08 K/uL (0.00-0.02); Immature Granulocytes % (auto) 0.7 %; Lymphocytes % (auto) 27.7 %; Mean Corpuscular Hemoglobin 30.6 pg (25-34); Mean Corpuscular Volume 92.5 fL (80-100); Mean Platelet Volume 8.8 fL (7.4-10.4); Monocytes # (auto) 0.77 K/uL (0.11-0.59); Monocytes % (auto) 7.1 %; Neutrophils # (auto) 6.89 K/uL (1.4-6.5); Neutrophils % (auto) 63.6 %; Platelet Count 290 K/uL (130-400); RDW Coefficient of Variation 14.5 % (11.5-14.5); RDW Standard Deviation 49.2 fL (36.4-46.3); Red Blood Count 3.86 M/uL (4.2-5.4); White Blood Count 10.84 K/uL (4.8-10.8)
[2019-09-28 16:31] LABS: Mean Corpuscular Hgb Conc 33.1 g/dL (32-36)
[2019-09-28 16:42] LABS: Albumin Level 2.8 gm/dl (3.4-5.0); BUN Creatinine Ratio 13.6 (10-20); Calcium 8.5 mg/dl (8.5-10.1); Creatinine Clr Calc Pharmacy 114.3 ml/min; Est GFR (African American) 121.6; Est GFR (Non-African American) 104.9
[2019-09-28 16:45] LABS: Albumin Globulin Ratio 0.7 (0.9-2); Bilirubin,Total 0.2 mg/dl (0.2-1); Globulin 3.8 gm/dl (2.5-4.0); Total Protein 6.6 gm/dl (6.4-8.2)
[2019-09-28] MEDS: OMEGA-3 (PURIFIED FISH OIL) 1 GM CAP PO SCH (20:33)
[2019-09-28] MEDS: PANTOprazole 40 MG TAB PO SCH (20:33)
[2019-09-28] MEDS: BuPROPion SR 150 MG TABCR PO SCH (20:33)
[2019-09-28] MEDS: ESCITALOPRAM OXALATE 10 MG TAB PO SCH (20:33)
[2019-09-28] MEDS: CALCIUM 600MG + VIT D 400 IU TAB PO SCH (20:33)
[2019-09-28] MEDS: ONDANSETRON INJ 2 MG/ML 2 ML VIAL IV PRN (22:58)
[2019-09-29] MEDS: TRAMADOL HCL 50 MG TABLET PO PRN ×2 (00:26→14:07)
[2019-09-29 07:57] LABS: Basophils # (auto) 0.05 K/uL (0-0.2); Basophils % (auto) 0.5 %; Eosinophils # (auto) 0.15 K/uL (0-0.5); Eosinophils % (auto) 1.6 %; Hematocrit (blood only) 36.7 % (37-47); Hemoglobin 12.5 g/dL (12.0-16.0); Immature Granulocytes # (auto) 0.07 K/uL (0.00-0.02); Immature Granulocytes % (auto) 0.7 %; Lymphocytes # (auto) 2.48 K/uL (1.2-3.4); Lymphocytes % (auto) 26.2 %; Mean Corpuscular Hemoglobin 30.9 pg (25-34); Mean Corpuscular Volume 90.6 fL (80-100); Mean Platelet Volume 8.7 fL (7.4-10.4); Monocytes # (auto) 0.59 K/uL (0.11-0.59); Monocytes % (auto) 6.2 %; Neutrophils # (auto) 6.12 K/uL (1.4-6.5); Neutrophils % (auto) 64.8 %; Platelet Count 311 K/uL (130-400); RDW Coefficient of Variation 13.9 % (11.5-14.5); RDW Standard Deviation 46.3 fL (36.4-46.3); Red Blood Count 4.05 M/uL (4.2-5.4); White Blood Count 9.46 K/uL (4.8-10.8)
[2019-09-29 08:02] LABS: Mean Corpuscular Hgb Conc 34.1 g/dL (32-36)
[2019-09-29] MEDS: cefTRIAXone SODIUM 2,000 MG in DEXTROSE 5% 50 ML IV SCH (08:06)
[2019-09-29] MEDS: DOXYCYCLINE HYCLATE 100 MG in DEXTROSE 5% 100 ML IV SCH ×2 (08:06→20:58)
[2019-09-29] MEDS: LORazepam 0.5 MG TAB PO SCH ×3 (08:07→20:58)
[2019-09-29] MEDS: ONDANSETRON INJ 2 MG/ML 2 ML VIAL IV PRN (08:07)
[2019-09-29] MEDS: guaiFENesin 600 MG TABCR PO SCH ×2 (08:08→20:58)
[2019-09-29] MEDS: NICOTINE 21 MG/24 HR TDSY TD SCH (08:08)
[2019-09-29 08:17] LABS: BUN Creatinine Ratio 11.3 (10-20); Calcium 9.3 mg/dl (8.5-10.1); Creatinine Clr Calc Pharmacy 107.6 ml/min; Est GFR (African American) 116.4; Est GFR (Non-African American) 100.4; Magnesium 1.9 mg/dl (1.8-2.4); Potassium 3.2 mmol/L (3.5-5.1)
[2019-09-29 08:20] LABS: Albumin Globulin Ratio 0.7 (0.9-2); Bilirubin,Total 0.4 mg/dl (0.2-1); Globulin 4.1 gm/dl (2.5-4.0); Total Protein 7.1 gm/dl (6.4-8.2)
[2019-09-29] MEDS: HYDROmorphone INJ 0.5 MG/0.5 ML SYR IV PRN ×3 (09:08→23:15)
[2019-09-29] MEDS: CHOLESTYRAMINE LIGHT 4 GM PKT PO SCH ×3 (09:09→20:58)
[2019-09-29] MEDS ORDERED: POTASSIUM CHLORIDE 20 MEQ TABCR PO STA (13:49)
[2019-09-29] MEDS ORDERED: POTASSIUM CHLORIDE / WTR 10 MEQ/100 ML PLCT IV ONE (14:00)
[2019-09-29] MEDS ORDERED: methylPREDNISolone 60 MG in SYRINGE 0 ML IV ONE (14:15)
--- NOTE | 2019-09-29 17:53 | Pulmonology Progress Note ---
Date of Service September 29, 2019 Assessment & Plan (1) Acute hypoxemic respiratory failure: No significant eosinophilia seen on the biopsies or the cell counts. She did have pigmented macrophages consistent with her smoking. Recommend completing a 7-day course of antibiotics and a 2-week course of steroids. The groundglass opacities that we are seeing may be a sequelae of smoking-related interstitial lung disease such as RB-ILD or DIP although this was not seen on the biopsy. She also likely has some degree of airway trapping and smoking- related lung disease such as COPD or bronchitis. I strongly recommend smoking cessation and follow-up in the pulmonary clinic with full PFTs. I would also recommend performing a 2 step to evaluate for the need for supplemental oxygen. I suspect that this will be a short-term need. This is a medical necessity at this time. Pulmonary will sign off. Please call with questions. Thank you. (2) Abnormal CT scan, chest: (3) Crohn's disease: Gastrointestinal tract location: unspecified location Subjective Patient feels like that her cough is improved a bit. She feels like she is able to cough up more secretions. She denies any fevers. Belly pain has improved. No chest pain. No nausea. She is in good spirits today. Physical Exam Eyes: PERRL, conjunctivae normal, anicteric sclerae ENMT: external ear and nose normal, oropharynx normal Neck: normal visual inspection Respiratory: no labored breathing and no retractions Auscultation: + rhonchi; no wheezes Cardiovascular: RRR, no murmur, no edema Gastrointestinal (Abdomen): Inspection/Auscultation: normal bowel sounds Percussion/Palpation: + abdomen tender; no guarding Musculoskeletal: no cyanosis or clubbing, extremities motor strength 5/5 Skin: no rashes, warm and dry Neurologic: PERRL, EOMI, accommodation nl, no face palsy, no dysarthria CN's II-XI intact bilaterally Psychiatric: A+Ox3, euthymic affect Lymphatic: no lymphadenopathy Results & Data ([facility]) Vital Signs (Past 12 Hours) Vital Signs Temp Pulse Resp BP BP Pulse Ox 09/29/19 15:49 98.2 F 73 18 137/75 92 09/29/19 11:50 98.2 F 72 19 113/63 91 09/29/19 07:54 98.2 F 71 18 125/74 93 PG Care Time/CCT Total # of Minutes Spent Total Time Spent with Patient: Total time spent is greater than 50% in coordination of care (as documented) at patient's floor/unit and/or counseling patient: Coding Level of Care Code 12700 Subseq Hosp Care Lvl 2 Diagnoses Acute hypoxemic respiratory failure J96.[address] scan, chest R93.89 Crohn's disease K50.90 Gastrointestinal tract location: unspecified location
--- NOTE | 2019-09-29 18:14 | Hospitalist Progress Note ---
Date of Service September 29, 2019 Assessment & Plan (1) Hypoxia: from smoking-related interstitial lung disease -This is a 44-year-old female who has significant past medical history of Crohn's disease, depression with anxiety, tobacco abuse, vitamin D deficiency, chronic maxillary sinusitis who presents to ED secondary to fever x5 days; shortness of breath -In ED upon arrival patient was hypoxic requiring 5 L of O2 to maintain normal oxygen saturation. He had mild elevation in temp 37.6. Was otherwise hemodynamically stable. CBC relatively unremarkable except mild elevation in total absolute lymphocytes 3.86. CMP significant for hypokalemia 2.5, glucose 113, negative for influenza. Chest x-ray concerning for minimal left basilar opacity versus thickening. She received 1 L of IVF, nebulizer treatment, 125 mg Solu-Medrol and 20 M EQ of KCl. She was then continued on IV antibiotics Rocephin and Doxycycline, duonebs, and additional solumedrol -09/27/2019: patient breathing on nasal cannula 2 liters/min which is a significant improvement than oxygen use on presentation. She is empirically being treated as if she has pneumonia with respiratory antibiotics but review of her admission lung imaging is not typical for a pneumonia appearance. 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 Pulmonary consult was requested for further assistance with diagnosis. -09/28/2019 patient is s/p bronchoscopy. "There was moderate amounts of thick white secretions noted. There were no other findings including secretions. The bronchoscope was subsequently withdrawn and advanced into the left mainstem. Again, each segment and subsegment was well visualized. No specific masses or other lesions were identified throughout the tracheobronchial tree on the left. There was moderate amounts of thick and white secretions noted. The bronchoscope was then wedged in the lingula and bronchoalveolar lavage samples were obtained. 120 ml of saline was instilled and 55 ml of fluid was aspirated back.The bronchoscope was withdrawn and the area was suctioned clear. The bronchoscope was then re-advanced into the lingula and multiple transbronchial biopsies were taken blindly from the lingula. Minimal hemorrhage was identified and suctioned clear without difficulty. Cold saline was used to achieve adequate hemostasis. The bronchoscope was then withdrawn to the mainstem. The area was suctioned clear. The bronchoscope was then withdrawn. The patient tolerated the procedure well without evidence of desaturation or complications. Bronchoalveolar lavage samples were sent for cell count, Gram stain and bacterial culture, AFB culture and smear, fungal culture and smear and cytology. Transbronchial biopsies were sent for pathology" -AFB smear No Acid-Fast Bacilli Seen and pulmonary physician discussed with hospitalist of no need for airborne precautions LUNG, LINGULA, BRONCHIAL WASHIN. NO MALIGNANT CELLS SEEN. 2. NUMEROUS LIGHTLY PIGMENTED MACROPHAGES CONSISTENT WITH TOBACCO USAGE. 3. NO FUNGAL OR MICROBACTERIAL ORGANISMS IDENTIFIED ON SPECIAL STAINS. LUNG, LEFT UPPER LOBE, BIOPSY: 1. BENIGN BRONCHIOALVEOLAR TISSUE WITH ASSOCIATED MILD NON-SPECIFIC CHRONIC INFLAMMATION. 2. NEGATIVE FOR MALIGNANCY. Pulmonary final recommendations: 7-day course of antibiotics and a 2-week course of steroids. The groundglass opacities that we are seeing may be a sequelae of smoking-related interstitial lung disease such as RB-ILD or DIP although this was not seen on the biopsy. She also likely has some degree of airway trapping and smoking-related lung disease such as COPD or bronchitis. smoking cessation and follow-up in the pulmonary clinic with full PFTs. -continue Rocephin and Doxycycline for now. solumedrol 60 mv IV x 1 ordered on 09/29/2019 and plans to give solumedrol 40 mg IV x 1 on 09/30/2019. plan for 2 step test on 09/30/2019 to assess oxygen needs for discharge (2) Pneumonia: -suspected pneumonia is generally ruled out but pulmonary physician writes of potential benefit of 7 day total course of respiratory antibiotics (3) Abdominal pain: -Patient presenting with worsened abdominal pain and increased frequency. She denies any blood in stool. Elicits symptoms similar to prior exacerbation of Crohn's and history of C. difficile. She has not been taking any immunosuppressants as outpatient. Last seen by GI on 08/08/19 had colonoscopy in 07/2019 -C.difficile negative -some abdominal pain symptoms but patient appears to be tolerating discomforts, plans of steroids primarily for respiratory indications may help also to ameliorate GI symptoms of Crohn's disease (4) Crohn's disease: as per gastroenterology: "evidence of active disease on imaging and colonoscopy, she does not appear to be in a significant Crohn's flare. Would hold on prescribing a steroid taper. No evidence of abscess - thus no indication for Cipro/Flagyl." (5) Hypokalemia: -admission serum potassium 2.5 -after repletion, recent serum potassium is 3.5 on 09/27/2019 -potassium repletions continued on 09/28/2019 and 09/29/2019 -recheck labs on 09/30/2019 (6) Tobacco abuse: -Encourage smoking cessation -nicotine patch (7) Depression with anxiety: Mood stable Continue Wellbutrin and Lexapro Lorazepam 3 times daily with hold for sedation (8) DVT prophylaxis: SCDs Subjective Today patient on 3 liters/min nasal cannula oxygen while on room air to have O2 saturation in the low 90s. No acute respiratory distress. she notes dyspnea on exertion. still some abdominal discomforts. no vomiting. no chest pain. no dizziness. no headache Review of Systems Review of Systems: All systems reviewed & are unremarkable except as noted in HPI & below Physical Exam Constitutional: WD/WN, vitals as above comfortable Eyes: PERRL, conjunctivae normal, anicteric sclerae EOM intact bilaterally ENMT: external ear and nose normal, oropharynx normal Neck: trachea midline, no thyromegaly normal visual inspection Respiratory: normal respiratory effort Cardiovascular: RRR, no murmur, no edema Gastrointestinal (Abdomen): normal bowel sounds, soft, nontender, no hepatosplenomegaly Musculoskeletal: Head/Neck/Chest: normocephalic and head atraumatic Neurologic: PERRL, EOMI, accommodation nl, no face palsy, no dysarthria CN's II-XI intact bilaterally Psychiatric: A+Ox3, euthymic affect Results & Data ([facility]) Vital Signs (Past 12 Hours) Vital Signs Temp Pulse Resp BP BP Pulse Ox 09/29/19 15:49 36.8 C 73 18 137/75 92 09/29/19 11:50 36.8 C 72 19 113/63 91 09/29/19 07:54 36.8 C 71 18 125/74 93 (1) Crohn's disease Gastrointestinal tract location: unspecified location (2) Pneumonia Laterality: left Lung location: lower lobe of lung Pneumonia type: due to un specified organism Qualified Code(s): J18.9 - Pneumonia, unspecified organism
[2019-09-29] MEDS: CALCIUM 600MG + VIT D 400 IU TAB PO SCH (20:58)
[2019-09-29] MEDS: OMEGA-3 (PURIFIED FISH OIL) 1 GM CAP PO SCH (20:58)
[2019-09-29] MEDS: ESCITALOPRAM OXALATE 10 MG TAB PO SCH (20:58)
[2019-09-29] MEDS: BuPROPion SR 150 MG TABCR PO SCH (20:58)
[2019-09-29] MEDS: PANTOprazole 40 MG TAB PO SCH (20:58)
[2019-09-30] MEDS: HYDROmorphone INJ 0.5 MG/0.5 ML SYR IV PRN ×2 (06:08→12:22)
[2019-09-30 06:47] LABS: BUN Creatinine Ratio 22.5 (10-20); Calcium 9.3 mg/dl (8.5-10.1); Creatinine Clr Calc Pharmacy 125.9 ml/min; Est GFR (Non-African American) 108.7; Potassium 4.3 mmol/L (3.5-5.1)
[2019-09-30] MEDS: guaiFENesin 600 MG TABCR PO SCH (08:46)
[2019-09-30] MEDS: LORazepam 0.5 MG TAB PO SCH ×2 (08:46→14:13)
[2019-09-30] MEDS: NICOTINE 21 MG/24 HR TDSY TD SCH (08:47)
[2019-09-30] MEDS ORDERED: methylPREDNISolone 40 MG in SYRINGE 0 ML IV SCH (09:00)
[2019-09-30] MEDS: DOXYCYCLINE HYCLATE 100 MG in DEXTROSE 5% 100 ML IV SCH (09:21)
[2019-09-30] MEDS: cefTRIAXone SODIUM 2,000 MG in DEXTROSE 5% 50 ML IV SCH (09:22)
[2019-09-30] MEDS: CHOLESTYRAMINE LIGHT 4 GM PKT PO SCH (09:28)
--- NOTE | 2019-09-30 12:58 | Hospitalist Progress Note ---
Date of Service September 30, 2019 Assessment & Plan (1) Hypoxia: from smoking-related interstitial lung disease -This is a 44-year-old female who has significant past medical history of Crohn's disease, depression with anxiety, tobacco abuse, vitamin D deficiency, chronic maxillary sinusitis who presents to ED secondary to fever x5 days; shortness of breath -In ED upon arrival patient was hypoxic requiring 5 L of O2 to maintain normal oxygen saturation. He had mild elevation in temp 37.6. Was otherwise hemodynamically stable. CBC relatively unremarkable except mild elevation in total absolute lymphocytes 3.86. CMP significant for hypokalemia 2.5, glucose 113, negative for influenza. Chest x-ray concerning for minimal left basilar opacity versus thickening. She received 1 L of IVF, nebulizer treatment, 125 mg Solu-Medrol and 20 M EQ of KCl. She was then continued on IV antibiotics Rocephin and Doxycycline, duonebs, and additional solumedrol -09/27/2019: patient breathing on nasal cannula 2 liters/min which is a significant improvement than oxygen use on presentation. She is empirically being treated as if she has pneumonia with respiratory antibiotics but review of her admission lung imaging is not typical for a pneumonia appearance. 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 Pulmonary consult was requested for further assistance with diagnosis. -09/28/2019 patient is s/p bronchoscopy. "There was moderate amounts of thick white secretions noted. There were no other findings including secretions. The bronchoscope was subsequently withdrawn and advanced into the left mainstem. Again, each segment and subsegment was well visualized. No specific masses or other lesions were identified throughout the tracheobronchial tree on the left. There was moderate amounts of thick and white secretions noted. The bronchoscope was then wedged in the lingula and bronchoalveolar lavage samples were obtained. 120 ml of saline was instilled and 55 ml of fluid was aspirated back.The bronchoscope was withdrawn and the area was suctioned clear. The bronchoscope was then re-advanced into the lingula and multiple transbronchial biopsies were taken blindly from the lingula. Minimal hemorrhage was identified and suctioned clear without difficulty. Cold saline was used to achieve adequate hemostasis. The bronchoscope was then withdrawn to the mainstem. The area was suctioned clear. The bronchoscope was then withdrawn. The patient tolerated the procedure well without evidence of desaturation or complications. Bronchoalveolar lavage samples were sent for cell count, Gram stain and bacterial culture, AFB culture and smear, fungal culture and smear and cytology. Transbronchial biopsies were sent for pathology" -AFB smear No Acid-Fast Bacilli Seen and pulmonary physician discussed with hospitalist of no need for airborne precautions LUNG, LINGULA, BRONCHIAL WASHIN. NO MALIGNANT CELLS SEEN. 2. NUMEROUS LIGHTLY PIGMENTED MACROPHAGES CONSISTENT WITH TOBACCO USAGE. 3. NO FUNGAL OR MICROBACTERIAL ORGANISMS IDENTIFIED ON SPECIAL STAINS. LUNG, LEFT UPPER LOBE, BIOPSY: 1. BENIGN BRONCHIOALVEOLAR TISSUE WITH ASSOCIATED MILD NON-SPECIFIC CHRONIC INFLAMMATION. 2. NEGATIVE FOR MALIGNANCY. Pulmonary final recommendations: 7-day course of antibiotics and a 2-week course of steroids. The groundglass opacities that we are seeing may be a sequelae of smoking-related interstitial lung disease such as RB-ILD or DIP although this was not seen on the biopsy. She also likely has some degree of airway trapping and smoking-related lung disease such as COPD or bronchitis. smoking cessation and follow-up in the pulmonary clinic with full PFTs. -continue Rocephin and Doxycycline for now. solumedrol 60 mv IV x 1 ordered on 09/29/2019 and plans to give solumedrol 40 mg IV x 1 on 09/30/2019. plan for 2 step test on 09/30/2019 to assess oxygen needs for discharge and oxygen requirements as oxygen 2 liter/min at rest and with ambulation discharge home with oxygen 2 liter/min at rest and with ambulation Discharge medications of 4 days of respiratory antibiotics of Augmentin (take as twice a day) and Doxycycline (take as twice a day), nicotine patches, prednisone with prednisone taper [email or web address] [address] [place] [address], [place] [address] (prednisone as 40 mg daily x 3 days, 30 mg daily x 3 days, 20 mg daily x 3 days, 10 mg daily x 3 days) 10/10/2019 11:20 AM Provider Angelic Mayer MD Department General Internal Medicine [facility]. Patient should have follow labs of serum potassium levels. Patient should be referred to a [facility]. If patient wishes to follow with [facility] clinic, she should arrange appointment with [facility] at [address], [address] [place] [address] 11/15/2019 3:00 PM Provider Cheryl Rowley MD Department Gastroenterology, [facility] (2) Pneumonia: -suspected pneumonia is generally ruled out but pulmonary physician writes of potential benefit of 7 day total course of respiratory antibiotics (3) Abdominal pain: Abdominal pain from Crohn's disease -Patient presenting with worsened abdominal pain and increased frequency. She denies any blood in stool. Elicits symptoms similar to prior exacerbation of Crohn's and history of C. difficile. She has not been taking any immunosuppressants as outpatient. Last seen by GI on 08/08/19 had colonoscopy in 07/2019 -C.difficile negative -some abdominal pain symptoms but patient appears to be tolerating discomforts, plans of steroids primarily for respiratory indications may help also to ameliorate GI symptoms of Crohn's disease (4) Crohn's disease: -as per gastroenterology: "evidence of active disease on imaging and colonoscopy, she does not appear to be in a significant Crohn's flare. Would hold on prescribing a steroid taper. No evidence of abscess - thus no indication for Cipro/Flagyl." -outpatient follow up of gastroenterology (5) Hypokalemia: -admission serum potassium 2.5 -after repletion, recent serum potassium is 3.5 on 09/27/2019 -potassium repletions continued on 09/28/2019 and 09/29/2019 -recheck labs on 09/30/2019 shows serum potassium of 4.3 so hypokalemia resolved (6) Tobacco abuse: -Encourage smoking cessation -nicotine patch (7) Depression with anxiety: Mood stable Continue Wellbutrin and Lexapro Lorazepam 3 times daily with hold for sedation (8) DVT prophylaxis: SCDs Discharge Diagnosis Hypoxia (from smoking-related interstitial lung disease) suspected pneumonia is generally ruled out but pulmonary physician writes of potential benefit of 7 day total course of respiratory antibiotics Abdominal pain from Crohn's disease Hypokalemia (resolved) Tobacco abuse Subjective 2 step test on 09/30/2019 to assess oxygen needs for discharge and oxygen requirements as oxygen 2 liter/min at rest and with ambulation. abdominal discomforts are tolerable as per patient. no chest pain. no vomiting. no dizziness. no headache. 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 to obtain the oxygen tanks so patient can go home today Review of Systems Review of Systems: All systems reviewed & are unremarkable except as noted in HPI & below Physical Exam Constitutional: WD/WN, vitals as above comfortable Eyes: PERRL, conjunctivae normal, anicteric sclerae EOM intact bilaterally ENMT: external ear and nose normal, oropharynx normal Neck: trachea midline, no thyromegaly normal visual inspection Respiratory: normal respiratory effort Cardiovascular: RRR, no murmur, no edema Gastrointestinal (Abdomen): normal bowel sounds, soft, nontender, no hepatosplenomegaly Musculoskeletal: Head/Neck/Chest: normocephalic and head atraumatic Neurologic: PERRL, EOMI, accommodation nl, no face palsy, no dysarthria CN's II-XI intact bilaterally Psychiatric: A+Ox3, euthymic affect Results & Data ([facility]) Vital Signs (Past 12 Hours) Vital Signs Temp Pulse Pulse Pulse Pulse Pulse Resp 09/30/19 11:04 36.6 C 75 19 09/30/19 10:15 74 75 76 77 09/30/19 07:30 36.6 C 78 19 09/30/19 04:29 36.7 C 68 18 Resp Resp Resp Resp BP Pulse Ox Pulse Ox 09/30/19 11:04 123/75 91 09/30/19 10:15 16 20 16 16 90 09/30/19 07:30 134/79 90 09/30/19 04:29 110/64 91 Pulse Ox Pulse Ox Pulse Ox 09/30/19 11:04 09/30/19 10:15 92 92 84 L 09/30/19 07:30 09/30/19 04:29 (1) Crohn's disease Gastrointestinal tract location: unspecified location (2) Pneumonia Laterality: left Lung location: lower lobe of lung Pneumonia type: due to unspecified organism Qualified Code(s): J18.9 - Pneumonia, unspecified organism
--- NOTE | 2019-09-30 13:05 | Discharge Summary ---
Date of Service September 30, 2019 Admission HPI Per Admitting Provider This is a 44-year-old female who has significant past medical history of Crohn's disease, depression with anxiety, tobacco abuse, vitamin D deficiency, chronic maxillary sinusitis who presents to ED secondary to fever x5 days; shortness of breath x1 day. Starting last patient began developing intermittent fevers chills and sweats. Temp max was 102.6. Approximately 1.5 days after developing fever she developed lower respiratory symptoms including moist but nonproductive cough, wheezing, shortness with with exertion, malaise, fatigue, decreased appetite, continued fever and chills and nausea. She further elicits to being lightheaded with movement but denies any syncopal event. She does have sick contact with similar symptoms. Denies prior history of pneumonia or asthma. She is a half a pack a day smoker for 35 years and intermittent marijuana use. Denies recent travel out of the country or exposed to someone with recent travel. She further denies any hemoptysis, emesis, chest pain, palp itations, dysuria, increased urgency or frequency with urination, melena, hematochezia. He notes decreased frequency with urination secondary to poor p.o. intake. She also elicits 8-10 loose bowel movements daily. This is not abnormal secondary to her Crohn's but she feels she is moving her bowels more frequently and experiencing LLQ abdominal pain. Abdominal pain is predominantly in the LLQ but does radiate throughout entire abdomen. Is constant but wax and wanes in severity. Upon arrival to ED was approximately 9 out of 10 and currently is 4 out of 10. Nothing makes pain better or worse. Feels similar to her prior flare of Crohn's and history of C. difficile. Denies any recent antibiotic use. She has been trying [id number] APAP for fever and NyQuil with minimal relief. He denies currently being on any immunosuppressant for her Crohn's, last on Stelara. Elicits to having colonoscopy 07/2019 which revealed stricture. In ED upon arrival patient was hypoxic requiring 5 L of O2 to maintain normal oxygen saturation. He had mild elevation in temp 37.6. Was otherwise hemodynamically stable. CBC relatively unremarkable except mild elevation in total absolute lymphocytes 3.86. CMP significant for hypokalemia 2.5, glucose 113, negative for influenza. Chest x-ray concerning for minimal left basilar opacity versus thickening. She received 1 L of IVF, nebulizer treatment, 125 mg Solu-Medrol and 20 M EQ of KCl. Admission Exam Per Admitting Provider Constitutional: Ill-appearing, pale, female, on O2 via NC, dyspneic with conversation, vitals as above, NAD, sitting up in bed, pleasant Head: Normocephalic, Atraumatic Eyes: PERRL, conjunctivae normal, anicteric sclerae ENMT: external ear and nose normal, oropharynx normal with dry mucous membranes Neck: trachea midline, no thyromegaly normal visual inspection Respiratory: normal respiratory effort, patient with coarse breath sounds throughout, rales bibasilarly, no wheeze or rhonchi noted. On O2 via NC 5L. normal insp/exp effort, no accessory muscle use Cardiovascular: RRR, no murmur, no edema Vessels: no JVD or carotid bruit Chest: normal inspection of chest Abdomen: normal bowel sounds, soft, tender to palpation diffusely with max at LLQ, no rebound, no guarding, no rigidity, nondistended no hepatosplenomegaly Musculoskeletal: no cyanosis or clubbing, extremities motor strength 5/5 Skin: no rashes, warm and dry mild turgor Neurologic: PERRL, EOMI, accommodation nl, no face palsy, no dysarthria CN's II-XI intact bilaterally and moves all extremities Psychiatric: A+Ox3, euthymic affect Lymphatic: no cervical or axillary lymphadenopathy : deferred Principal Diagnosis Hypoxia (from smoking-related interstitial lung disease) suspected pneumonia is generally ruled out but pulmonary physician writes of potential benefit of 7 day total course of respiratory antibiotics Abdominal pain from Crohn's disease Hypokalemia (resolved) Tobacco abuse Discharge Exam Constitutional WD/WN, vitals as above comfortable Eyes PERRL, conjunctivae normal, anicteric sclerae EOM intact bilaterally ENMT external ear and nose normal, oropharynx normal Neck trachea midline, no thyromegaly normal visual inspection Respiratory normal respiratory effort Cardiovascular RRR, no murmur, no edema Gastrointestinal (Abdomen) normal bowel sounds, soft, nontender, no hepatosplenomegaly Musculoskeletal Head/Neck/Chest: normocephalic and head atraumatic Neurologic PERRL, EOMI, accommodation nl, no face palsy, no dysarthria CN's II-XI intact bilaterally Psychiatric A+Ox3, euthymic affect Discharge Data Allergies Allergy/AdvReac Type Severity Reaction Status Date / Time No Known Allergies Allergy Unknown Verified 09/26/19 08:41 Consultations 09/26/19 09:29 ED Decision to Admit Stat 09/26/19 10:38 Consult Gastroenterology Routine 09/27/19 08:43 Consult Pulmonology Routine 09/29/19 14:05 Consult Case Management - Discharge Planning Routine Procedures Performed Operation Date: 09/28/19 08:00 Actual Procedures p Bronchoscopy Radiology(Bilateral) - Khalif Singh MD Ordered Studies 09/26/19 10:34 CT abd pelvis oral and IV con Stat CT angio chest PE protocol Stat Hospital Course (1) Hypoxia: from smoking-related interstitial lung disease -This is a 44-year-old female who has significant past medical history of Crohn's disease, depression with anxiety, tobacco abuse, vitamin D deficiency, chronic maxillary sinusitis who presents to ED secondary to fever x5 days; shortness of breath -In ED upon arrival patient was hypoxic requiring 5 L of O2 to maintain normal oxygen saturation. He had mild elevation in temp 37.6. Was otherwise hemodynamically stable. CBC relatively unremarkable except mild elevation in total absolute lymphocytes 3.86. CMP significant for hypokalemia 2.5, glucose 113, negative for influenza. Chest x-ray concerning for minimal left basilar opacity versus thickening. She received 1 L of IVF, nebulizer treatment, 125 mg Solu-Medrol and 20 M EQ of KCl. She was then continued on IV antibiotics Rocephin and Doxycycline, duonebs, and additional solumedrol -09/27/2019: patient breathing on nasal cannula 2 liters/min which is a significant improvement than oxygen use on presentation. She is empirically being treated as if she has pneumonia with respiratory antibiotics but review of her admission lung imaging is not typical for a pneumonia appearance. Hospitalist also noting hyperinflation of lungs and concerned for COPD given patient's usp history of smoking. Pulmonary consult was requested for further assistance with diagnosis. -09/28/2019 patient is s/p bronchoscopy. "There was moderate amounts of thick white secretions noted. There were no other findings including secretions. The bronchoscope was subsequently withdrawn and advanced into the left mainstem. Again, each segment and subsegment was well visualized. No specific masses or other lesions were identified throughout the tracheobronchial tree on the left. There was moderate amounts of thick and white secretions noted. The bronchoscope was then wedged in the lingula and bronchoalveolar lavage samples were obtained. 120 ml of saline was instilled and 55 ml of fluid was aspirated back.The bronchoscope was withdrawn and the area was suctioned clear. The bronchoscope was then re-advanced into the lingula and multiple transbronchial biopsies were taken blindly from the lingula. Minimal hemorrhage was identified and suctioned clear without difficulty. Cold saline was used to achieve adequate hemostasis. The bronchoscope was then withdrawn to the mainstem. The area was suctioned clear. The bronchoscope was then withdrawn. The patient tolerated the procedure well without evidence of desaturation or complications. Bronchoalveolar lavage samples were sent for cell count, Gram stain and bacterial culture, AFB culture and smear, fungal culture and smear and cytology. Transbronchial biopsies were sent for pathology" -AFB smear No Acid-Fast Bacilli Seen and pulmonary physician discussed with hospitalist of no need for airborne precautions LUNG, LINGULA, BRONCHIAL WASHIN. NO MALIGNANT CELLS SEEN. 2. NUMEROUS LIGHTLY PIGMENTED MACROPHAGES CONSISTENT WITH TOBACCO USAGE. 3. NO FUNGAL OR MICROBACTERIAL ORGANISMS IDENTIFIED ON SPECIAL STAINS. LUNG, LEFT UPPER LOBE, BIOPSY: 1. BENIGN BRONCHIOALVEOLAR TISSUE WITH ASSOCIATED MILD NON-SPECIFIC CHRONIC INFLAMMATION. 2. NEGATIVE FOR MALIGNANCY. Pulmonary final recommendations: 7-day course of antibiotics and a 2-week course of steroids. The groundglass opacities that we are seeing may be a sequelae of smoking-related interstitial lung disease such as RB-ILD or DIP although this was not seen on the biopsy. She also likely has some degree of airway trapping and smoking-related lung disease such as COPD or bronchitis. smoking cessation and follow-up in the pulmonary clinic with full PFTs. -continue Rocephin and Doxycycline for now. solumedrol 60 mv IV x 1 ordered on 09/29/2019 and plans to give solumedrol 40 mg IV x 1 on 09/30/2019. plan for 2 step test on 09/30/2019 to assess oxygen needs for discharge and oxygen requirements as oxygen 2 liter/min at rest and with ambulation discharge home with oxygen 2 liter/min at rest and with ambulation Discharge medications of 4 days of respiratory antibiotics of Augmentin (take as twice a day) and Doxycycline (take as twice a day), nicotine patches, prednisone with prednisone taper sent electronically to [facility] [address] [place] [address], [place] [address] (prednisone as 40 mg daily x 3 days, 30 mg daily x 3 days, 20 mg daily x 3 days, 10 mg daily x 3 days) 10/10/2019 11:20 AM Provider Angelic Mayer MD Department General Internal Medicine [facility]. Patient should have follow labs of serum potassium levels. Patient should be referred to a [facility] Pulmonary clinic. If patient wishes to follow with [facility] Pulmonary clinic, she should arrange appointment with [facility] at [facility] [address], [address] [place] [address] 11/15/2019 3:00 PM Provider Cheryl Rowley MD Department Gastroe nterology, [facility] (2) Pneumonia: -suspected pneumonia is generally ruled out but pulmonary physician writes of potential benefit of 7 day total course of respiratory antibiotics (3) Abdominal pain: Abdominal pain from Crohn's disease -Patient presenting with worsened abdominal pain and increased frequency. She denies any blood in stool. Elicits symptoms similar to prior exacerbation of Crohn's and history of C. difficile. She has not been taking any immunosuppressants as outpatient. Last seen by GI on 08/08/19 had colonoscopy in 07/2019 -C.difficile negative -some abdominal pain symptoms but patient appears to be tolerating discomforts, plans of steroids primarily for respiratory indications may help also to ameliorate GI symptoms of Crohn's disease (4) Crohn's disease: -as per gastroenterology: "evidence of active disease on imaging and colonoscopy, she does not appear to be in a significant Crohn's flare. Would hold on prescribing a steroid taper. No evidence of abscess - thus no indication for Cipro/Flagyl." -outpatient follow up of gastroenterology (5) Hypokalemia: -admission serum potassium 2.5 -after repletion, recent serum potassium is 3.5 on 09/27/2019 -potassium repletions continued on 09/28/2019 and 09/29/2019 -recheck labs on 09/30/2019 shows serum potassium of 4.3 so hypokalemia resolved (6) Tobacco abuse: -Encourage smoking cessation -nicotine patch (7) Depression with anxiety: Mood stable Continue Wellbutrin and Lexapro Lorazepam 3 times daily with hold for sedation (8) DVT prophylaxis: SCDs Discharge Diagnosis Hypoxia (from smoking-related interstitial lung disease) suspected pneumonia is generally ruled out but pulmonary physician writes of potential benefit of 7 day total course of respiratory antibiotics Abdominal pain from Crohn's disease Hypokalemia (resolved) Tobacco abuse Total Time Total Time Spent Total Time Spent (In Minutes): 40 minutes Total Time Includes: Examination of the Patient, Discharge Planning, Medication Reconciliation and Communication With Other Providers Discharge Plan Discharge Items Patient Disposition: Home - Self-Care Reason For Visit: HYPOXIA, FEVER, PNEUMONIA Discharge Diagnosis: Hypoxia (from smoking-related interstitial lung disease) suspected pneumonia is generally ruled out but pulmonary physician writes of potential benefit of 7 day total course of respiratory antibiotics Abdominal pain from Crohn's disease Hypokalemia (resolved) Tobacco abuse Condition on Discharge: Good Activity: Per Instructions section Non-emergency contact: Primary Care Provider and Social Studies Department Chair Call non-emergency contact if: you have any medication questions Follow-up/Referrals: Angelic Mayer MD [Primary Care Provider] - 10/10/19 11:05 am (THIS APT WAS ALREADY MADE FOR YOU, IF YOU CAN NOT MAKE THIS APT PLEASE RESCHEDULE. ) Diet: Regular Addtl Attending Provider Instructions: discharge home with oxygen 2 liter/min at rest and with ambulation Discharge medications of 4 days of respiratory antibiotics of Augmentin (take as twice a day) and Doxycycline (take as twice a day), nicotine patches, prednisone with prednisone taper sent electronically to [address] [id number] (prednisone as 40 mg daily x 3 days, 30 mg daily x 3 days, 20 mg daily x 3 days, 10 mg daily x 3 days) 10/10/2019 11:20 AM Provider Angelic Mayer MD Department General Internal Medicine [facility]. Patient should have follow labs of serum potassium levels. Patient should be referred to a [facility] Pulmonary clinic. If patient wishes to follow with [facility] Pulmonary clinic, she should arrange appointment with [facility] Medicine at [address], [address] [place] [address] 11/15/2019 3:00 PM Provider Cheryl Rowley MD Department Gastroenterology, [facility] [employer] Provider Instructions: 09/29/[address] Khalif Singh "No significant eosinophilia seen on the biopsies or the cell counts. She did have pigmented macrophages consistent with her smoking. Recommend completing a 7-day course of antibiotics and a 2-week course of steroids. The groundglass opacities that we are seeing may be a sequelae of smoking-related interstitial lung disease such as RB-ILD or DIP although this was not seen on the biopsy. She also likely has some degree of airway trapping and smoking-related lung disease such as COPD or bronchitis. I strongly recommend smoking cessation and follow-up in the pulmonary clinic with full PFTs" Pending Studies at Discharge: No Stand-Alone Forms: Call Back Authorization, My [facility], Smoking Cessation Medications and DC Order Prescriptions: New doxycycline hyclate 100 mg Capsule 100 mg PO BID 4 Days Qty: 8 RF: 0 nicotine [Nicoderm CQ] 21 mg/24 hr Patch 24 Hour 21 mg transdermal QAM 30 Days Qty: 30 RF: 0 amoxicillin-pot clavulanate [Augmentin] 875-125 mg Tablet 1 tab PO BIDM 4 Days Qty: 8 RF: 0 prednisone 20 mg tablet 40 mg PO DAILY 12 Days Qty: 15 RF: 0 Continued acetaminophen [Tylenol Extra Strength] 500 mg Tablet 500 mg PO Q6H PRN (Reason: Pain) RF: 0 Vicks NyQuil Cold/Flu (cpm) 4-30-650 mg/30 mL Liquid 30 ml PO UD RF: 0 bupropion HCl 150 mg Tablet Sustained-Release 12 Hr 300 mg PO HS RF: 0 lorazepam 0.5 mg Tablet 0.5 mg PO TID RF: 0 pantoprazole [Protonix] 40 mg Tablet,Delayed Release (Dr/Ec) 40 mg PO HS RF: 0 azelastine 137 mcg (0.1 %) Aerosol,[place] 2 spray INTRANASAL BID RF: 0 albuterol sulfate [Proventil HFA] 90 mcg/actuation Hfa Aerosol Inhaler 2 puff INHALATION Q6H PRN (Reason: Shortness Of Breath Or Wheezing) RF: 0 escitalopram oxalate [Lexapro] 10 mg Tablet 10 mg PO HS RF: 0 sodium chloride [Saline Nasal] 0.65 % Aerosol,[place] 2 spray INTRANASAL DIRECTED PRN (Reason: Dry Nasal Passages) RF: 0 calcium carbonate-vitamin D3 [Calcium 500 + D] 500 mg(1,250mg) -200 unit Tablet 1 tab PO HS RF: 0 omega 0-ihs-bac-fish oil [Fish Oil] 1,000 mg (120 mg-180 mg) Capsule 1 cap PO HS RF: 0 ondansetron 4 mg tablet,disintegrating 4 mg PO Q6H PRN (Reason: nausea and vomiting) Qty: 12 RF: 0 Discharge Orders: Discharge Order (Routine); Ordered 09/30/19 Ordered By: Jose Alberto Salgado Admission Data Admit Date/Time: 09/26/19 10:20 Attending Provider: Jose Alberto Salgado Admit Provider: Michael Riley Primary Care Provider: Angelic Mayer Other Providers: Seth Wells ; Michael Riley ; Khalif Singh
[2019-09-30] MEDS ORDERED: AMOXICILLIN/CLAVULANATE 875 MG TAB PO SCH (17:00)
[2019-09-30] MEDS ORDERED: DOXYCYCLINE HYCLATE 100 MG CAP PO SCH (21:00)
== END 2019-09-30 15:35 | disposition home or self-care (01) | DRG 166 ==
LOC: ED 07:32 → 2E 10:20 → SUATTDRO 10:20 → 2E 11:09

== ENCOUNTER 2020-04-27 02:43 | Inpatient (IN) ==
[2020-04-27] MEDS ORDERED: HYDROmorphone INJ 0.5 MG/0.5 ML SYR IV STA ×2 (03:05→04:58)
[2020-04-27] MEDS ORDERED: SODIUM CHLORIDE 0.9% 500 ML IV SCH ×2 (03:15→05:30)
[2020-04-27 03:28] LABS: Basophils # (auto) 0.02 K/uL (0-0.2); Basophils % (auto) 0.2 %; Eosinophils # (auto) 0.08 K/uL (0-0.5); Eosinophils % (auto) 0.8 %; Hematocrit (blood only) 40.4 % (37-47); Immature Granulocytes # (auto) 0.02 K/uL (0.00-0.02); Immature Granulocytes % (auto) 0.2 %; Lymphocytes # (auto) 1.22 K/uL (1.2-3.4); Lymphocytes % (auto) 12.2 %; Mean Corpuscular Hgb Conc 34.7 g/dL (32-36); Mean Corpuscular Volume 89.4 fL (80-100); Mean Platelet Volume 9.2 fL (7.4-10.4); Neutrophils # (auto) 8.04 K/uL (1.4-6.5); Neutrophils % (auto) 80.6 %; Platelet Count 286 K/uL (130-400); RDW Coefficient of Variation 13.5 % (11.5-14.5); RDW Standard Deviation 44.4 fL (36.4-46.3); Red Blood Count 4.52 M/uL (4.2-5.4); White Blood Count 9.98 K/uL (4.8-10.8)
[2020-04-27 03:50] LABS: Albumin Level 3.4 gm/dl (3.4-5.0); BUN Creatinine Ratio 14.2 (10-20); Creatinine Clr Calc Pharmacy 87.5 ml/min; Est GFR (African American) 100.9; Est GFR (Non-African American) 87.1
[2020-04-27 03:52] LABS: Albumin Globulin Ratio 0.8 (0.9-2); Bilirubin,Total 0.3 mg/dl (0.2-1); Globulin 4.3 gm/dl (2.5-4.0); Total Protein 7.7 gm/dl (6.4-8.2)
[2020-04-27] MEDS ORDERED: IOVERSOL 100ml IV ONE (03:54)
[2020-04-27] MEDS ORDERED: POTASSIUM CHLORIDE / WTR 10 MEQ/100 ML PLCT IV ONE (04:24)
[2020-04-27] MEDS ORDERED: ONDANSETRON INJ 2 MG/ML 2 ML VIAL IV STA (04:58)
--- NOTE | 2020-04-27 05:21 | Emergency Department Note ---
Impression & Plan SBO (small bowel obstruction), Crohn's disease ED Provider Note NAME: BREEZY SAUCEDA AGE: 44 SEX: F ARRIVES VIA: Ambulance INFORMANT: Patient ED PROVIDER(S): Yessenia Cardenas DO CHIEF COMPLAINT: Abdominal pain PLAN: Disposition: Admitted to the [facility] service Condition: Stable MEDICAL DECISION MAKING: This is a 44-year-old female patient with history of Crohn's disease who pre sents to the emergency department with nausea, increasing abdominal pain and no bowel movement throughout the day today. The patient was concerned she had a small bowel obstruction as she has had them before. Patient does explain that she started a new medication 1 week ago to slow her digestive tract. CT scan does show evidence of a small bowel obstruction. An NG tube was placed. The patient is on IV fluids and receiving multiple doses of IV analgesia and IV antiemetics. The case was discussed with the [facility] Hospitalist and they will evaluate for further care. Triage Nursing notes reviewed and agree them. Prior medical records reviewed Vital Signs: reviewed and unremarkable Differential diagnosis: Small bowel obstruction, colonic obstruction, intra-abdominal abscess, perforated bowel ER treatment provided: IV normal saline solution IV Dilaudid x2 IV Zofran NG tube Laboratory studies: See below Imaging studies:as per stat rad CT abdomen and pelvis with contrast: Small bowel obstruction. Transition point of the small bowel/colonic anastomosis which measures approximately 8 mm in diameter. Upstream dilatation of the small bowel up to 4 cm with equalization. No pneumatosis, portal venous gas or free air. Cholelithiasis without cholecystitis HPI: 44/F arrives for evaluation of abdominal pain and nausea. The patient has a history of Crohn's disease. 1 week ago, she started a new medication to slow her digestive tract and prevent diarrhea. The patient became more concerned today when she had increasing nausea and had no bowel movement. Her pain has progressed tonight and has become severe. ROS: See above HPI for pertinent positives & negatives. A total of 10 systems reviewed and were otherwise negative. PAST MEDICAL HISTORY:See Below PAST SURGICAL HISTORY:See Below FAMILY HISTORY:See Below SOCIAL HISTORY:See Below HOME MEDICATIONS:See list ALLERGIES:None VITALS:See Below PHYSICAL EXAMINATION: HEENT: Head - normocephalic and atraumatic Pupils are equal, round, and reactive to light. Extraocular eye muscles are intact, and sclera are anicteric. Nose - moist nasal mucosa without discharge. Mouth - moist buccal mucosa. Oropharynx is nonerythematous and there is no tonsillar exudate or edema noted. Neck: Supple; no cervical lymphadenopathy or thyromegaly Heart: Tachycardic rate and regular rhythm. There is a normal S1 and S2 with no murmurs, clicks, or gallops appreciated. Lungs: Clear to auscultation bilaterally with no wheezes, rales, or rhonchi. Abdomen: Soft, diffusely tender, mildly distended, with hyperactive bowel sounds. There are no palpable pulsatile masses or hepatosplenomegaly. There is moderate guarding but no rigidity or rebound noted. Extremities: No evidence of cyanosis, clubbing, or edema. There are easily palpable peripheral pulses. Skin: warm and dry with good turgor and no rashes. ED COURSE: Times/Reassessments: 0300: The patient was evaluated in room C8. A complete history and physical was performed. An order was placed for continuous cardiac monitoring. The patient was in a normal sinus rhythm at a rate of 76 An IV lock was initiated and labs were drawn as above. The patient was given IV Dilaudid for pain along with IV normal saline solution. She went for a CT scan of the abdomen/pelvis. 0445: Upon returning, the patient's abdominal pain began to return along with some nausea. She was given an additional dose of IV Zofran along with an additional dose of IV Dilaudid. I reviewed the results of the CT scan with her. An NG tube will be placed. I discussed the case with the [facility] Hospitalist and they will evaluate for further management. Yessenia Cardenas DO Past Med/Surg History Medical History Abnormal CT scan, chest Acute hypoxemic respiratory failure Chronic maxillary sinusitis Crohn's disease Depression with anxiety History of Clostridioides difficile colitis History of deviated nasal septum History of erythema nodosum History of uveitis Tobacco abuse Surgical History History of colectomy History of colonoscopy Last 07/2019 History of rhinoplasty Multiple nasal surgeries x3 Family History Father Heart disease TIA (transient ischemic attack) Mother Heart disease FH: diverticulitis Sister Crohn's disease Diabetes Social History Smoking Status: Current every day smoker Tobacco Type: Cigarettes Cigarettes Per Day: 10; Second Hand Exposure: No; Tobacco Cessation Education Requested by Patient: No Hx Alcohol Use: Yes Alcohol type: wine Alcohol type Comment: Once a month Hx Substance Use: Yes Last Used Substance Other:: 3 to 4 weeks ago Preferred Language: Finnish Communication Ability: Effective 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 Beliefs That Will Affect Care: None marital status: Single Current Living Situation: Other Other Information That Helps Us Care for You: No Feels Safe at Home: Yes Allergies Allergies Allergy/AdvReac Type Severity Reaction Status Date / Time No Known Allergies Allergy Verified 04/27/20 03:21 Home Meds Home Medications Medication Instructions Recorded Confirmed lorazepam 0.5 mg PO TID 04/20/19 04/27/20 sodium chloride [Saline Nasal] 2 spray INTRANASAL DIRECTED PRN 04/20/19 04/27/20 adalimumab [Humira(CF) Pen] 40 mg SUBCUT UD 04/27/20 04/27/20 bupropion HCl 100 mg PO TID 04/27/20 04/27/20 dicyclomine 10 mg PO TID 04/27/20 04/27/20 fluoxetine 40 mg PO DAILY 04/27/20 04/27/20 pantoprazole 40 mg PO HS 04/27/20 04/27/20 Results & Data (ED) Vital Signs Vital Signs - 24 hr 04/27/20 02:52 04/27/20 03:19 04/27/20 03:22 Temperature 37 C Temperature Source Oral Pulse Rate 97 H 93 H Pulse Rate from SpO2 Sensor 93 H Respiratory Rate 18 17 Blood Pressure 143/92 H 134/83 Blood Pressure Mean 109 100 Pulse Oximetry 96 94 93 Oxygen Delivery Method Room Air Room Air Room Air Sepsis Recent Fever Within 48 Hours No Sepsis New/Unexplained Change in Mental Status N/A Sepsis Action Taken by Nursing No Action Required 04/27/20 03:30 04/27/20 04:14 04/27/20 04:30 Temperature Temperature Source Pulse Rate 86 86 86 Pulse Rate from SpO2 Sensor 87 86 86 Respiratory Rate 16 18 16 Blood Pressure 131/87 140/85 138/83 Blood Pressure Mean 100 98 99 Pulse Oximetry 91 93 93 Oxygen Delivery Method Room Air Room Air Room Air Sepsis Recent Fever Within 48 Hours Sepsis New/Unexplained Change in Mental Status Sepsis Action Taken by Nursing 04/27/20 05:00 04/27/20 05:30 Temperature Temperature Source Pulse Rate 86 90 Pulse Rate from SpO2 Sensor 86 90 Respiratory Rate 18 17 Blood Pressure 129/83 120/82 Blood Pressure Mean 98 89 Pulse Oximetry 92 93 Oxygen Delivery Method Room Air Room Air Sepsis Recent Fever Within 48 Hours Sepsis New/Unexplained Change in Mental Status Sepsis Action Taken by Nursing Laboratory Data Result diagrams: 04/27/20 03:15 04/27/20 14:51 Lab Results 04/27/20 04/27/20 Range/Units 03:15 03:15 WBC 9.98 (4.8-10.8) K/uL RBC 4.52 (4.2-5.4) M/uL Hgb 14.0 (12.0-16.0) g/dL Hct 40.4 (37-47) % MCV 89.4 (80-100) fL MCH 31.0 (25-34) pg MCHC 34.7 (32-36) g/dL RDW Std Deviation 44.4 (36.4-46.3) fL RDW Coeff of Samia 13.5 (11.5-14.5) % Plt Count 286 (130-400) K/uL MPV 9.2 (7.4-10.4) fL Immature Gran % (Auto) 0.2 % Neut % (Auto) 80.6 % Lymph % (Auto) 12.2 % Steele % (Auto) 6.0 % Eos % (Auto) 0.8 % Baso % (Auto) 0.2 % Neut # (Auto) 8.04 H (1.4-6.5) K/uL Lymph # (Auto) 1.22 (1.2-3.4) K/uL Steele # (Auto) 0.60 H (0.11-0.59) K/uL Eos # (Auto) 0.08 (0-0.5) K/uL Baso # (Auto) 0.02 (0-0.2) K/uL Immature Gran # (Auto) 0.02 (0.00-0.02) K/uL Sodium 142 (136-145) mmol/L Potassium 3.0 L (3.5-5.1) mmol/L Chloride 108 H (98-107) mmol/L Carbon Dioxide 27 (21-32) mmol/L Anion Gap 7.0 (3-11) BUN 11 (7-18) mg/dl Creatinine 0.81 (0.6-1.2) mg/dl Est Cr Clr Drug Dosing 87.5 ml/min Est GFR ( Amer) 100.9 Est GFR (Non-Af Amer) 87.1 BUN/Creatinine Ratio 14.2 (10-20) Glucose 110 H (70-99) mg/dl Calcium 9.0 (8.5-10.1) mg/dl Total Bilirubin 0.3 (0.2-1) mg/dl AST 40 H (15-37) U/L ALT 38 (12-78) U/L Alkaline Phosphatase 95 (45-117) U/L Total Protein 7.7 (6.4-8.2) gm/dl Albumin 3.4 (3.4-5.0) gm/dl Globulin 4.3 H (2.5-4.0) gm/dl Albumin/Globulin Ratio 0.8 L (0.9-2) Lipase 103 (73-393) U/L Specimen Hemolysis Administered Medications Hydromorphone HCl (Hydromorphone Inj 0.5 Mg/0.5 Ml Syr) 0.5 mg IV Q3H PRN PRN Reason: Pain Stop: 05/11/20 07:06 Last Admin: 04/27/20 21:20 Dose: 0.5 mg Documented by: [id number] Admin: 04/27/20 17:46 Dose: 0.5 mg Documented by: [id number] Admin: 04/27/20 14:33 Dose: 0.5 mg Documented by: [id number] Admin: 04/27/20 08:15 Dose: 0.5 mg Documented by: [id number] Pantoprazole Sodium 40 mg/ (Syringe) 10 mls @ 5 mls/min IV BID DENILSON Stop: 05/27/20 08:59 Last Admin: 04/27/20 21:20 Dose: 5 mls/min Documented by: [id number] Admin: 04/27/20 08:13 Dose: 5 mls/min Documented by: [id number] Sodium Chloride (Nss 1000ml) 1,000 mls @ 125 mls/hr IV .Q8H DENILSON Stop: 05/27/20 07:06 Last Admin: 04/27/20 16:49 Dose: 125 mls/hr Documented by: [id number] Infusion: 04/27/20 16:49 Dose: 125 mls/hr Documented by: [id number] Infusion: 04/27/20 14:43 Dose: 125 mls/hr Documented by: [id number] Infusion: 04/27/20 12:05 Dose: 0 mls/hr Documented by: [id number] Admin: 04/27/20 08:12 Dose: 125 mls/hr Documented by: [id number] Lorazepam (Ativan) 0.5 mg in 1 mls @ 1 mls/min IV TID PRN PRN Reason: Anxiety Stop: 05/27/20 11:25 Last Admin: 04/27/20 14:24 Dose: 1 mls/min Documented by: [id number] Methylprednisolone 40 mg/ (Syringe) 0.64 mls @ 1.5 mls/min IV Q12H DENILSON Stop: 05/27/20 14:29 Last Admin: 04/27/20 15:06 Dose: 1.5 mls/min Documented by: [id number] Discontinued Medications Hydromorphone HCl (Hydromorphone Inj 0.5 Mg/0.5 Ml Syr) 1 mg IV NOW STA Stop: 04/27/20 03:06 Last Admin: 04/27/20 03:19 Dose: 1 mg Documented by: [id number] Hydromorphone HCl (Hydromorphone Inj 0.5 Mg/0.5 Ml Syr) 0.5 mg IV NOW STA Stop: 04/27/20 04:59 Last Admin: 04/27/20 05:02 Dose: 0.5 mg Documented by: [id number] Sodium Chloride (Nss) 500 mls @ 999 mls/hr IV .Q31M DENILSON Stop: 04/27/20 03:45 Last Infusion: 04/27/20 03:50 Dose: 0 mls/hr Documented by: [id number] Admin: 04/27/20 03:19 Dose: 999 mls/hr Documented by: [id number] Potassium Chloride (K Michael / Wtr) 10 meq in 100 mls @ 100 mls/hr IV ONE ONE Stop: 04/27/20 05:23 Last Infusion: 04/27/20 05:34 Dose: 0 mls/hr Documented by: [id number] Admin: 04/27/20 04:32 Dose: 100 mls/hr Documented by: [id number] Sodium Chloride (Nss) 500 mls @ 125 mls/hr IV .Q4H DENILSON Stop: 05/27/20 05:29 Last Infusion: 04/27/20 12:43 Dose: 0 mls/hr Documented by: [id number] Admin: 04/27/20 05:56 Dose: 125 mls/hr Documented by: [id number] Potassium Chloride (K Michael / Wtr) 10 meq in 100 mls @ 100 mls/hr IV Q1H DENILSON Stop: 04/27/20 11:29 Last Infusion: 04/27/20 15:18 Dose: 0 mls/hr Documented by: [id number] Admin: 04/27/20 14:24 Dose: 100 mls/hr Documented by: [id number] Infusion: 04/27/20 12:05 Dose: 0 mls/hr Documented by: [id number] Admin: 04/27/20 11:01 Dose: 100 mls/hr Documented by: [id number] Infusion: 04/27/20 10:51 Dose: 100 mls/hr Documented by: [id number] Admin: 04/27/20 09:51 Dose: 100 mls/hr Documented by: [id number] Infusion: 04/27/20 09:13 Dose: 100 mls/hr Documented by: [id number] Admin: 04/27/20 08:13 Dose: 100 mls/hr Documented by: [id number] Ioversol (Ioversol 100ml) 93 ml IV ONCE ONE Stop: 04/27/20 03:55 Last Admin: 04/27/20 03:55 Dose: 1 ml Documented by: [id number] Ondansetron HCl (Ondansetron Inj 2 Mg/Ml 2 Ml Vial) 4 mg IV NOW STA Stop: 04/27/20 04:59 Last Admin: 04/27/20 05:02 Dose: 4 mg Documented by: [id number] Discharge Plan Visit Data Chief Complaint: Abdominal Pain Stated Complaint: ABDOMINAL PAIN ED Provider: Yessenia Cardenas Discharge Problem: SBO (small bowel obstruction), Crohn's disease Patient Disposition: Admitted As Inpatient Discharge Instructions Interventions: ED Discharge Assessment Last Done: 04/27/20 06:33 Discharge Problem: Crohn's disease Qualifiers: Gastrointestinal tract location: unspecified location Digestive disease complication type: other complication Qualified Code(s): K50.918 - Crohn's disease, unspecified, with other complication
[2020-04-27] MEDS ORDERED: ONDANSETRON INJ 2 MG/ML 2 ML VIAL IV PRN (07:07)
--- NOTE | 2020-04-27 07:18 | History and Physical Report ---
DATE OF ADMISSION: 04/27/2020 CHIEF COMPLAINT: Abdominal pain. HISTORY OF PRESENT ILLNESS: This is a 44-year-old female with past medical history significant for Crohn's disease, history of large intestine enteritis, chronic maxillary sinusitis, secondary amenorrhea, tobacco use disorder, depression, status post intestinal anastomosis, who presents with abdominal pain. The pain started yesterday, on and off. When she came in, it was 10/10 in severity, it was associated with nausea. Last bowel movement was yesterday morning. Currently, after pain medication, pain is about 4/10 in severity. Denies any blood in stools or black stools. Normal bladder, normal bowel movements. Denies any headache, no blurred vision, no earache, no runny nose, no sore throat, no dysphagia, no chest pain, no shortness of breath, no fever, no cough. The patient is having a rash in his right thigh region for the last couple of years, for which she recently had a biopsy and this rash is developing with bulls eye pattern.. The patient says she had a tick bite several months ago on her left leg and at that time checked for tick-borne disease. Labs were done, which was unremarkable. ALLERGIES: No known drug allergies. PAST MEDICAL HISTORY: As mentioned above. PAST SURGICAL HISTORY: Multiple colonoscopies, cystoscopy with insertion of stent, EGDs, laparoscopic partial colectomy with anastomosis, nasal sinus endoscopy, reconstruction of the nose, tonsillectomy. MEDICATIONS: The patient is on dicyclomine 10 mg p.o. t.i.d., Ativan 0.5 mg p.o. t.i.d., bupropion 100 mg p.o. t.i.d., Prozac 40 mg p.o. daily, Protonix 40 mg p.o. daily, Humira as directed, nasal spray intranasally as directed. FAMILY HISTORY: Significant for father has allergies, asthma, stroke. Mother has heart disorder, diverticulitis, arthritis. Sister has arthritis, Crohn's at age of 46. SOCIAL HISTORY: Single, smokes quarter pack a day for last 20 years. Alcohol once a month. No drug use. REVIEW OF SYSTEMS: As per HPI. Rest of the review of systems negative. PHYSICAL EXAMINATION: GENERAL: The patient is of moderate build, not in acute distress. VITAL SIGNS: Temperature 37, pulse 90, respiratory rate 17, blood pressure 120/82, oxygen 93% on room air. HEENT: Pupils equal, round, and reactive to light. Oral mucosa moist. NECK: No JVD, no neck masses seen. CARDIOVASCULAR: S1, S2 heard. Regular rate and rhythm, no murmur, no gallop. RESPIRATORY SYSTEM: Normal AP diameter. No accessory muscle use. No wheezing, no crackles. ABDOMEN: Soft, bowel sounds absent, mild diffuse tender. No distention seen. No guarding, no rigidity. CENTRAL NERVOUS SYSTEM: Cranial nerves II-XII are grossly intact. Nonfocal. EXTREMITIES: No edema seen. There is a rash on the right medial aspect of thigh with a bulls eye kind of a rash and biopsy evens is seen. LABORATORY DATA: WBC 9.9, hemoglobin 14, hematocrit 40.4, platelets 286. Sodium 142, potassium 3, chloride 108, bicarbonate 27, BUN 11, creatinine 0.8, serum glucose 110, calcium 9, total bilirubin 0.3, AST 40, ALT 38, alkaline phosphatase 95. Lipase 103. IMAGING DATA: CT of abdomen and pelvis preliminary report shows small bowel obstruction, transition point in the small bowel, colonic anastomosis, cholelithiasis without cholecystitis. ASSESSMENT AND PLAN: This is a 44-year-old female with history of Crohn's disease presents with small bowel obstruction. 1. Small-bowel obstruction at the anastomosis site. The patient getting NG tube _in the ER. We will place on IV fluids, IV antiemetics, IV Dilaudid p.r.n. Keep her n.p.o. Consult surgery. Because of Crohn's disease, we will consult GI for further recommendations. 2. History of Crohn's, on Humira, follow with GI. 3. History of depression. On fluoxetine and bupropion .Currently, will be held because the patient is n.p.o. 4. Gastroesophageal reflux disease, we will place on IV Protonix. 5. Rash on the right thigh region, recently she had a biopsy done. Follow the results with the PCP. Will also check for Lyme disease. 6. Deep venous thrombosis prophylaxis, sequential compression devices. DISPOSITION: Admit to medical floor. Expect to discharge home and follow with family doctor. Level 1 full code. MTDD
[2020-04-27] MEDS: SODIUM CHLORIDE 0.9% 1000ML 1,000 ML IV SCH ×2 (08:12→16:49)
[2020-04-27] MEDS: POTASSIUM CHLORIDE / WTR 10 MEQ/100 ML PLCT IV SCH ×4 (08:13→14:24)
[2020-04-27] MEDS: PANTOprazole 40 MG in SYRINGE 0 ML IV SCH ×2 (08:13→21:20)
[2020-04-27] MEDS: HYDROmorphone INJ 0.5 MG/0.5 ML SYR IV PRN ×4 (08:15→21:20)
--- NOTE | 2020-04-27 08:28 | CT Scan Report ---
ABDOMEN AND PELVIS CT WITH IV CONTRAST CT DOSE: 351.43 mGy.cm HISTORY: Right upper quadrant pain. Crohn's disease. TECHNIQUE: Multiaxial CT images of the abdomen and pelvis were performed following the use of intrave nous contrast. A dose lowering technique was utilized adhering to the principles of ALARA. COMPARISON STUDY: Abdomen and pelvis CT 02/22/2020. FINDINGS: The lung bases are essentially clear. No pneumoperitoneum. No pneumatosis. No fractures wit hin the visualized osseous structures. The liver, spleen, adrenal glands, pancreas, and kidneys are u nremarkable. There are 2 stones within the gallbladder. No gallbladder wall thickening. The main port al vein is patent. No retroperitoneal lymphadenopathy. Normal caliber abdominal aorta. The bladder, u terus, bilateral adnexa are within normal limits. A single enlarged right inguinal lymph node measuri ng 2.3 x 1.3 cm. This is increased in size. A single right external iliac lymph node has also increas ed in size and measures 1.2 cm. Prior right hemicolectomy. Mild thickening at the anastomotic suture which has slightly progressed. There is also mild thickening and fat stranding involving a short segm ent of the distended distal ileum within the deep pelvis. Focal narrowing at the ileocolonic anastomo sis as seen on image 39 at the area of bowel wall thickening. Proximal to this the distal small bowel is distended up to 4.1 cm. Therefore, this is consistent with the transition point resulting in a sm all bowel obstruction. IMPRESSION: 1. Small bowel obstruction with the transition point at the ileocolonic anastomosis secondary to the bowel wall thickening/narrowing at the anastomosis. This is likely a result of patient's known Crohn' s disease. 2. Cholelithiasis. 3. Mild right external iliac and inguinal lymphadenopathy which is new from the prior study. This is indeterminate but could be reactive to the inflammatory bowel disease. Follow-up recommended to ensur e resolution. ACT 112: Negative or not required by law. Electronically signed by: Jorge Smith M.D. 04/27/2020 8:27 AM
--- NOTE | 2020-04-27 09:22 | Surgery Consultation ---
Date of Consultation April 27, 2020 Assessment & Plan (1) Crohn's disease: recurrent SBO continue NG IVF, K+ supplement seen with Dr. Manzanares History of Present Illness Attending Physician: Inez Fuentes MD History of Present Illness 44 y/o female with h/o Crohn's and multiple surgeries admitted overnight for SBO. Feels about the same this morning, minimal improvement. NG placed last night. [place] [facility] [place], last SBO treated conservatively at [place]. Allergies Allergy/AdvReac Type Severity Reaction Status Date / Time No Known Allergies Allergy Verified 04/27/20 03:21 Home Medications Home Medications Medication Instructions Recorded Confirmed Type lorazepam 0.5 mg PO TID 04/20/19 04/27/20 History sodium chloride [Saline Nasal] 2 spray INTRANASAL DIRECTED PRN 04/20/19 04/27/20 History adalimumab [Humira(CF) Pen] 40 mg SUBCUT UD 04/27/20 04/27/20 History bupropion HCl 100 mg PO TID 04/27/20 04/27/20 History dicyclomine 10 mg PO TID 04/27/20 04/27/20 History fluoxetine 40 mg PO DAILY 04/27/20 04/27/20 History pantoprazole 40 mg PO HS 04/27/20 04/27/20 History Patient History Medical History Abnormal CT scan, chest Acute hypoxemic respiratory failure Chronic maxillary sinusitis Crohn's disease Depression with anxiety History of Clostridioides difficile colitis History of deviated nasal septum History of erythema nodosum History of uveitis Tobacco abuse Surgical History History of colectomy History of colonoscopy Last 07/2019 History of rhinoplasty Multiple nasal surgeries x3 Family History Father Heart disease TIA (transient ischemic attack) Mother Heart disease FH: diverticulitis Sister Crohn's disease Diabetes Social History Smoking Status: Current every day smoker Tobacco Type: Cigarettes Cigarettes Per Day: 10; Second Hand Exposure: No; Hx Alcohol Use: Yes Alcohol type Comment: Once a month Hx Substance Use: No (smokes cigarettes) Preferred Language: Maldivian Communication Ability: Effective Lithopress Operator Required: No Beliefs That Will Affect Care: None marital status: Single Current Living Situation: Significant Other Feels Safe at Home: Yes Review of Systems Constitutional: no fever and no chills Gastrointestinal: + abdominal pain; no vomiting Physical Exam Constitutional: WD/WN, vitals as above Gastrointestinal (Abdomen): Inspection/Auscultation: + abdomen distended (mild) Percussion/Palpation: + abdomen tender (RLQ) and abdomen soft minimal NG output Results & Data ([facility]) Vital Signs (Past 12 Hours) Vital Signs Temp Pulse Pulse Resp BP BP Pulse Ox 04/27/20 06:55 36.8 C 83 16 129/79 93 04/27/20 06:30 84 15 132/73 93 04/27/20 06:09 87 15 127/75 95 04/27/20 05:30 90 17 120/82 93 04/27/20 05:00 86 18 129/83 92 04/27/20 04:30 86 16 138/83 93 04/27/20 04:14 86 18 140/85 93 04/27/20 03:30 86 16 131/87 91 04/27/20 03:22 93 H 17 134/83 93 04/27/20 03:19 94 04/27/20 02:52 37 C 97 H 18 143/92 H 96 PG Care Time/CCT Total # of Minutes Spent Total Time Spent with Patient: Total time spent is greater than 50% in coordination of care (as documented) at patient's floor/unit and/or counseling patient: Coding Level of Care Code 00942 Inpt Consult Level 3 Diagnoses Crohn's disease K50.90 Gastrointestinal tract location: unspecified location (1) Crohn's disease Gastrointestinal tract location: unspecified location
[2020-04-27 10:36] LABS: Lyme Ab IgM w/WB Rflx Negative (Negative)
[2020-04-27 10:43] LABS: Lyme Ab IgG w/WB Rflx Positive (Negative)
--- NOTE | 2020-04-27 11:33 | Hospitalist Progress Note ---
Date of Service April 27, 2020 Assessment & Plan (1) SBO (small bowel obstruction): (2) Crohn's disease: (3) Abdominal pain: SBO at ileocolonic anastomosis Conservative management for now Continue NGT and monitor Continue IVF Pain control Replete electrolytes and monitor Will appreciate GI evaluation NPO for now CT A/P also reported right inguinal and external iliac lymphadenopathy. This is reactive due to recent biopsy on right thigh Lyme testing done by Admitting provider has IgG positive and IgM neg Will not treat. Patient follows Dermatology for this rash and was being worked up Will follow them on discharge (4) Hypokalemia: K is 3 Repleted Recheck to monitor Admission and Anticipated Discharge Date Admission Date: April 27, 2020 Subjective Patient seen and examined Reports nausea Reports abd pain is mildly improved No vomiting No dizziness or headache No chest pain, SOB, [place], cough No dysuria, frequency, urgency No BM or passing flatus Physical Exam Constitutional: + well hydrated; no acute distress NGT in situ Eyes: PERRL, conjunctivae normal, anicteric sclerae ENMT: external ear and nose normal, oropharynx normal NGT in situ Respiratory: normal respiratory effort, lungs clear to auscultation Cardiovascular: RRR, no murmur, no edema Gastrointestinal (Abdomen): Mild distention, +lower abdominal tenderness, soft, hypoactive BS Musculoskeletal: no cyanosis or clubbing, extremities motor strength 5/5 Skin: Healing scab and mild erythema over right thigh (site of recent biopsy) Neurologic: PERRL, EOMI, accommodation nl, no face palsy, no dysarthria Psychiatric: A+Ox3, euthymic affect Results & Data Results & Data ([facility]) Vital Signs (Past 12 Hours) Vital Signs Temp Pulse Pulse Resp BP BP Pulse Ox 04/27/20 06:55 36.8 C 83 16 129/79 93 04/27/20 06:30 84 15 132/73 93 04/27/20 06:09 87 15 127/75 95 04/27/20 05:30 90 17 120/82 93 04/27/20 05:00 86 18 129/83 92 04/27/20 04:30 86 16 138/83 93 04/27/20 04:14 86 18 140/85 93 04/27/20 03:30 86 16 131/87 91 04/27/20 03:22 93 H 17 134/83 93 04/27/20 03:19 94 04/27/20 02:52 37 C 97 H 18 143/92 H 96 Laboratory Results Laboratory Results - last 24 hr 04/27/20 04/27/20 04/27/20 03:15 03:15 07:48 WBC 9.98 RBC 4.52 Hgb 14.0 Hct 40.4 MCV 89.4 MCH 31.0 MCHC 34.7 RDW Std Deviation 44.4 RDW Coeff of Samia 13.5 Plt Count 286 MPV 9.2 Immature Gran % (Auto) 0.2 Neut % (Auto) 80.6 Lymph % (Auto) 12.2 [place] % (Auto) 6.0 Eos % (Auto) 0.8 Baso % (Auto) 0.2 Neut # (Auto) 8.04 H Lymph # (Auto) 1.22 [place] # (Auto) 0.60 H Eos # (Auto) 0.08 Baso # (Auto) 0.02 Immature Gran # (Auto) 0.02 Sodium 142 Potassium 3.0 L Chloride 108 H Carbon Dioxide 27 Anion Gap 7.0 BUN 11 Creatinine 0.81 Est Cr Clr Drug Dosing 87.5 Est GFR ( Amer) 100.9 Est GFR (Non-Af Amer) 87.1 BUN/Creatinine Ratio 14.2 Glucose 110 H Calcium 9.0 Total Bilirubin 0.3 AST 40 H ALT 38 Alkaline Phosphatase 95 Total Protein 7.7 Albumin 3.4 Globulin 4.3 H Albumin/Globulin Ratio 0.8 L Lipase 103 Specimen Hemolysis Lyme Disease IgG Ab Positive A Lyme IgG (Western Blot) Lyme IgG 18 kDa Band Lyme IgG 23 kDa Band Lyme IgG 28 kDa Band Lyme IgG 30 kDa Band Lyme IgG 39 kDa Band Lyme IgG 41 kDa Band Lyme IgG 45 kDa Band Lyme IgG 58 kDa Band Lyme IgG 66 kDa Band Lyme IgG 93 kDa Band Lyme IgM Ab (WB) Lyme Disease IgM Ab Negative Lyme IgM 23 kDa Band Lyme IgM 39 kDa Band Lyme IgM 41 kDa Band 04/27/20 07:48 WBC RBC Hgb Hct MCV MCH MCHC RDW Std Deviation RDW Coeff of Samia Plt Count MPV Immature Gran % (Auto) Neut % (Auto) Lymph % (Auto) [place] % (Auto) Eos % (Auto) Baso % (Auto) Neut # (Auto) Lymph # (Auto) [place] # (Auto) Eos # (Auto) Baso # (Auto) Immature Gran # (Auto) Sodium Potassium Chloride Carbon Dioxide Anion Gap BUN Creatinine Est Cr Clr Drug Dosing Est GFR ( Amer) Est GFR (Non-Af Amer) BUN/Creatinine Ratio Glucose Calcium Total Bilirubin AST ALT Alkaline Phosphatase Total Protein Albumin Globulin Albumin/Globulin Ratio Lipase Specimen Hemolysis Lyme Disease IgG Ab Lyme IgG (Western Blot) Pending Lyme IgG 18 kDa Band Pending Lyme IgG 23 kDa Band Pending Lyme IgG 28 kDa Band Pending Lyme IgG 30 kDa Band Pending Lyme IgG 39 kDa Band Pending Lyme IgG 41 kDa Band Pending Lyme IgG 45 kDa Band Pending Lyme IgG 58 kDa Band Pending Lyme IgG 66 kDa Band Pending Lyme IgG 93 kDa Band Pending Lyme IgM Ab (WB) Pending Lyme Disease IgM Ab Lyme IgM 23 kDa Band Pending Lyme IgM 39 kDa Band Pending Lyme IgM 41 kDa Band Pending Diagnostic Findings CT ABD/P W/Contrast FINDINGS: The lung bases are essentially clear. No pneumoperitoneum. No pneumatosis. No fractures within the visualized osseous structures. The liver, spleen, adrenal glands, pancreas, and kidneys are unremarkable. There are 2 stones within the gallbladder. No gallbladder wall thickening. The main portal vein is patent. No retroperitoneal lymphadenopathy. Normal caliber abdominal aorta. The bladder, uterus, bilateral adnexa are within normal limits. A single enlarged right inguinal lymph node measuring 2.3 x 1.3 cm. This is increased in size. A single right external iliac lymph node has also increased in size and measures 1.2 cm. Prior right hemicolectomy. Mild thickening at the anastomotic suture which has slightly progressed. There is also mild thickening and fat stranding involving a short segment of the distended distal ileum within the deep pelvis. Focal narrowing at the ileocolonic anastomosis as seen on image 39 at the area of bowel wall thickening. Proximal to this the distal small bowel is distended up to 4.1 cm. Therefore, this is consistent with the transition point resulting in a small bowel obstruction. IMPRESSION: 1. Small bowel obstruction with the transition point at the ileocolonic anastomosis secondary to the bowel wall thickening/narrowing at the anastomosis. This is likely a result of patient's known Crohn's disease. 2. Cholelithiasis. 3. Mild right external iliac and inguinal lymphadenopathy which is new from the prior study. This is indeterminate but could be reactive to the inflammatory bowel disease. Follow-up recommended to ensure resolution. (1) Abdominal pain Abdominal location: unspecified location Qualified Code(s): R10.9 - Unspecified abdominal pain (2) Crohn's disease Gastrointestinal tract location: unspecified location
--- NOTE | 2020-04-27 14:09 | Gastrointestinal Consultation ---
Date of Consultation April 27, 2020 Assessment & Plan (1) SBO (small bowel obstruction): (2) Crohn's disease: likely SBO from Crohns flare and not being on adequate therapy. Recs: --start steroids solumedrol 40 mg IV q12 hours while inpt, will need an 8 week taper of prednisone 40 mg decreasing by 5 mg each week as an outpatient. --continue NG tube to low intermittent suction, NPO, supportive care --discussion regarding her Humira therapy will need to be had with her GI Dr. Rowley as an outpatient Thank you for allowing me to participate in the care of this patient Carlos Gonzalez MD Gastroenterology History of Present Illness Attending Physician: Inez Fuentes MD 44 yo female with hx cdiff, Crohns disease s/p multiple surgeries, on humira here with SBO. She was placed on Humira this year but was taken off of it temporarily due to concern she may have had lyme disease. She notes significant abdominal pains, also noted nausea, no hematochezia. She has an NG tube in place currently. CT A/P shows SBO at ileocolonic anastomosis. Regarding her hx of Crohn's, it was dx'ed in 1993 with abscesses in 1994, 1999 and underwent bowel resection in 1999 then ileocolonic resection with right hemicolectomy in 2009. She was seen in GI clinic in July after having had a lapse of care w/o any Crohn's meds for several months. Colonoscopy in July 2019 with mild anal stenosis, hemorrhoids, ulcerated ileal stricture (not traversed). MRE also in July 2019 with stable fibrostenotic disease with mild active inflammation at the ileocolonic anastomosis. Humira was recently prescribed (09/11/19). Other meds that she has been on previously during the course of her treatment, have been: Remicade, 6MP and Cimzia. She has also previously been on Humira around 2007->2009. labs reviewed. Allergies Allergy/AdvReac Type Severity Reaction Status Date / Time No Known Allergies Allergy Verified 04/27/20 03:21 Home Medications Home Medications Medication Instructions Recorded Confirmed Type lorazepam 0.5 mg PO TID 04/20/19 04/27/20 History sodium chloride [Saline Nasal] 2 spray INTRANASAL DIRECTED PRN 04/20/19 04/27/20 History adalimumab [Humira(CF) Pen] 40 mg SUBCUT UD 04/27/20 04/27/20 History bupropion HCl 100 mg PO TID 04/27/20 04/27/20 History dicyclomine 10 mg PO TID 04/27/20 04/27/20 History fluoxetine 40 mg PO DAILY 04/27/20 04/27/20 History pantoprazole 40 mg PO HS 04/27/20 04/27/20 History Patient History Medical History Abnormal CT scan, chest Acute hypoxemic respiratory failure Chronic maxillary sinusitis Crohn's disease Depression with anxiety History of Clostridioides difficile colitis History of deviated nasal septum History of erythema nodosum History of uveitis Tobacco abuse Surgical History History of colectomy History of colonoscopy Last 07/2019 History of rhinoplasty Multiple nasal surgeries x3 Family History Father Heart disease TIA (transient ischemic attack) Mother Heart disease FH: diverticulitis Sister Crohn's disease Diabetes Social History Smoking Status: Current every day smoker Tobacco Type: Cigarettes Cigarettes Per Day: 10; Second Hand Exposure: No; Tobacco Cessation Education Requested by Patient: No Hx Alcohol Use: Yes Alcohol type: wine Alcohol type Comment: Once a month Hx Substance Use: Yes Last Used Substance Other:: 3 to 4 weeks ago Preferred Language: Kiswahili Communication Ability: Effective Tooth Polisher Required: No Beliefs That Will Affect Care: None marital status: Single Current Living Situation: Other Other Information That Helps Us Care for You: No Feels Safe at Home: Yes Review of Systems Constitutional: no fever, no chills and no weight loss Eyes: as per Subjective / HPI Ear, Nose, Mouth, Throat: as per Subjective / HPI Respiratory: no dyspnea and no dyspnea on exertion Cardiovascular: no chest pain and no palpitations Gastrointestinal: as per Subjective / HPI Musculoskeletal: no joint pain and no swelling Integumentary: no rash and no lesions Neurologic: no numbness and no paresthesia Psychiatric: no depression and no anxiety Endocrine: no fatigue Hematologic / Lymphatic: no easy bleeding and no easy bruising Physical Exam Constitutional: WD/WN, vitals as above Eyes: EOM intact bilaterally Neck: normal visual inspection Respiratory: normal respiratory effort, lungs clear to auscultation Cardiovascular: RRR, no murmur, no edema Gastrointestinal (Abdomen): Inspection/Auscultation: abdomen normal to inspection; abdomen not distended Percussion/Palpation: abdomen soft; abdomen nontender and no hepatosplenomegaly Musculoskeletal: Extremities: no cyanosis Gait: normal gait Skin: no rashes, warm and dry Neurologic: moves all extremities Psychiatric: A+Ox3, euthymic affect Results & Data ([facility]) Vital Signs (Past 12 Hours) Vital Signs Temp Pulse Pulse Resp BP BP Pulse Ox 04/27/20 11:06 36.8 C 83 16 129/79 93 04/27/20 06:55 36.8 C 83 16 129/79 93 04/27/20 06:30 84 15 132/73 93 04/27/20 06:09 87 15 127/75 95 04/27/20 05:30 90 17 120/82 93 04/27/20 05:00 86 18 129/83 92 04/27/20 04:30 86 16 138/83 93 04/27/20 04:14 86 18 140/85 93 04/27/20 03:30 86 16 131/87 91 04/27/20 03:22 93 H 17 134/83 93 04/27/20 03:19 94 04/27/20 02:52 37 C 97 H 18 143/92 H 96 PG Care Time/CCT Total # of Minutes Spent Total Time Spent with Patient: Total time spent is greater than 50% in coordination of care (as documented) at patient's floor/unit and/or counseling patient: Coding Level of Care Code 12210 Inpt Consult Level 4 Diagnoses SBO (small bowel obstruction) K56.609 Crohn's disease K50.90 Gastrointestinal tract location: unspecified location (1) Crohn's disease Gastrointestinal tract location: unspecified location
[2020-04-27] MEDS: LORazepam 0.5 MG/1 ML VIAL IV PRN (14:24)
[2020-04-27] MEDS: methylPREDNISolone 40 MG in SYRINGE 0 ML IV SCH (15:06)
[2020-04-27 15:50] LABS: BUN Creatinine Ratio 16.4 (10-20); Calcium 8.3 mg/dl (8.5-10.1); Creatinine Clr Calc Pharmacy 116.2 ml/min; Est GFR (Non-African American) 108.7; Potassium 3.3 mmol/L (3.5-5.1)
[2020-04-27 23:59] LABS: Appearance Urine Clear (Clear); Bacteria Urine Automated Negative (Negative); Bilirubin Urine Negative (Negative); Blood Urine 2+ (Negative); Color Urine Dark Yellow; Epithelial Cell Urine Auto >30 /lpf (0-5); Glucose Urine UA Negative (Negative); Ketones Urine 1+ (Negative); Leukocyte Esterase Urine Negative (Negative); Nitrite Urine Negative (Negative); Protein Urine Negative (Negative); Specific Gravity Urine > 1.045 (1.000-1.030); Urobilinogen Urine Negative (Negative)
[2020-04-28] MEDS: SODIUM CHLORIDE 0.9% 1000ML 1,000 ML IV SCH ×4 (00:22→23:55)
[2020-04-28] MEDS: ACETAMINOPHEN 1,000 MG/100 ML VIAL IV PRN ×2 (00:22→19:39)
[2020-04-28] MEDS: HYDROmorphone INJ 0.5 MG/0.5 ML SYR IV PRN ×6 (01:03→23:57)
[2020-04-28] MEDS: methylPREDNISolone 40 MG in SYRINGE 0 ML IV SCH ×2 (02:20→13:43)
[2020-04-28] MEDS: LORazepam 0.5 MG/1 ML VIAL IV PRN ×2 (02:21→16:34)
[2020-04-28 05:46] LABS: Basophils # (auto) 0.01 K/uL (0-0.2); Basophils % (auto) 0.1 %; Eosinophils # (auto) 0.01 K/uL (0-0.5); Eosinophils % (auto) 0.1 %; Hemoglobin 13.9 g/dL (12.0-16.0); Immature Granulocytes # (auto) 0.02 K/uL (0.00-0.02); Immature Granulocytes % (auto) 0.2 %; Lymphocytes # (auto) 0.85 K/uL (1.2-3.4); Lymphocytes % (auto) 9.2 %; Mean Corpuscular Hemoglobin 30.5 pg (25-34); Mean Corpuscular Hgb Conc 33.1 g/dL (32-36); Mean Corpuscular Volume 92.3 fL (80-100); Mean Platelet Volume 9.8 fL (7.4-10.4); Monocytes # (auto) 0.23 K/uL (0.11-0.59); Monocytes % (auto) 2.5 %; Neutrophils # (auto) 8.12 K/uL (1.4-6.5); Neutrophils % (auto) 87.9 %; Platelet Count 273 K/uL (130-400); RDW Coefficient of Variation 13.6 % (11.5-14.5); RDW Standard Deviation 45.9 fL (36.4-46.3); Red Blood Count 4.55 M/uL (4.2-5.4); White Blood Count 9.24 K/uL (4.8-10.8)
[2020-04-28 06:10] LABS: BUN Creatinine Ratio 13.5 (10-20); Calcium 8.8 mg/dl (8.5-10.1); Creatinine Clr Calc Pharmacy 128.9 ml/min; Est GFR (African American) 130.4; Est GFR (Non-African American) 112.5; Magnesium 1.9 mg/dl (1.8-2.4); Phosphorus 2.5 mg/dl (2.5-4.9); Potassium 3.5 mmol/L (3.5-5.1)
--- NOTE | 2020-04-28 08:48 | Surgery Progress Note ---
Date of Service April 28, 2020 Assessment & Plan (1) SBO (small bowel obstruction): pt with h/o Crohn's disease NGT in place; still not much output- 280cc KUB this AM noted, appears to be some improvement GI recommendations noted & appreciated From our standpoint would continue current plan of NPO with NGT and await for return of bowel function Pt seen and examined with Dr. Manzanares Admission and Anticipated Discharge Date Admission Date: April 27, 2020 Subjective Patient states pain is still present, but not any worse than yesterday. She is not passing gas or any BMs. Physical Exam Physical Exam: awake/alert Gastrointestinal (Abdomen): Percussion/Palpation: + abdomen tender (mild ttp ) and abdomen soft NGT in place- 280cc bilious output Results & Data ([facility]) Vital Signs (Past 12 Hours) Vital Signs Temp Pulse Resp BP Pulse Ox 04/28/20 07:48 37.1 C 80 14 149/80 H 92 04/27/20 23:41 36.7 C 81 14 153/78 H 93 PG Care Time/CCT Total # of Minutes Spent Total Time Spent with Patient: Total time spent is greater than 50% in coordination of care (as documented) at patient's floor/unit and/or counseling patient: Coding Level of Care Code 02147 Subseq Hosp Care Lvl 1 Diagnoses SBO (small bowel obstruction) K56.609
--- NOTE | 2020-04-28 09:19 | XRay Report ---
KUB HISTORY: Follow up study in a patient with small bowel obstruction follow up bowel obstruction COMPARISON: CT abdomen and pelvis 04/27/2020 FINDINGS: Status post placement of an enteric tube, distal tip projected over the region of the proxi mal gastric lumen. Persistent small bowel dilation which appears unchanged from comparison. No renal calculi. No ureteral calculi. No pneumoperitoneum or pneumatosis. No fracture. IMPRESSION: 1. Status post placement of an enteric tube, distal tip projected over the proximal gastric lumen. 2. Persistent small bowel obstruction without pneumoperitoneum. ACT 112: Negative or not required by law. The above report was generated using voice recognition software. It may contain grammatical, syntax o r spelling errors. Electronically signed by: Demetri Lindsay M.D. 04/28/2020 9:17 AM
[2020-04-28] MEDS: PANTOprazole 40 MG in SYRINGE 0 ML IV SCH ×2 (09:23→21:24)
--- NOTE | 2020-04-28 11:30 | Gastroenterology Progress Note ---
Date of Service April 28, 2020 Assessment & Plan (1) SBO (small bowel obstruction): (2) Crohn's disease: persistent SBO, pain is improving, NG tube in place Recs: --continue IV solumedrol 40 mg q12h --continue NG tube to low intermittent suction --NPO --check daily KUBs, serial abdominal exams --will need 8 week prednisone taper as an outpatient upon discharge, and will need to discuss resuming her humira therapy with Dr. Rowley Admission and Anticipated Discharge Date Admission Date: April 27, 2020 Subjective no events overnight, KUB this morning shows persistent SBO. Pain is improved but still present. Denies BM nor flatus. afebrile. On IV solumedrol, labs reviewed. Review of Systems Constitutional: no fever and no chills Respiratory: no cough, no dyspnea and no dyspnea on exertion Cardiovascular: no chest pain and no dyspnea Gastrointestinal: as per Subjective / HPI Psychiatric: no depression and no anxiety Physical Exam Constitutional: WD/WN, vitals as above Respiratory: normal respiratory effort, lungs clear to auscultation Cardiovascular: RRR, no murmur, no edema Gastrointestinal (Abdomen): Inspection/Auscultation: normal bowel sounds Percussion/Palpation: + abdomen tender (moderate RUQ, improved overall) and abdomen soft; no hepatosplenomegaly Musculoskeletal: no lower extremity edema Psychiatric: A+Ox3, euthymic affect Results & Data Results & Data ([facility]) Vital Signs (Past 12 Hours) Vital Signs Temp Pulse Resp BP Pulse Ox 04/28/20 07:48 37.1 C 80 14 149/80 H 92 04/27/20 23:41 36.7 C 81 14 153/78 H 93 PG Care Time/CCT Total # of Minutes Spent Total Time Spent with Patient: Total time spent is greater than 50% in coordination of care (as documented) at patient's floor/unit and/or counseling patient: Coding Level of Care Code 05077 Subs Hosp Care Lvl 3 Diagnoses SBO (small bowel obstruction) K56.609 Crohn's disease K50.918 Gastrointestinal tract location: unspecified location Digestive disease complication type: other complication (1) Crohn's disease Gastrointestinal tract location: unspecified location Digestive disease complication type: other complication Qualified Code(s): K50.918 - Crohn's disease, unspecified, with other complication
--- NOTE | 2020-04-28 12:36 | Hospitalist Progress Note ---
Date of Service April 28, 2020 Assessment & Plan (1) SBO (small bowel obstruction): (2) Crohn's disease: (3) Abdominal pain: SBO at ileocolonic anastomosis Conservative management for now Abd XR today show persistent SBO Pain is improved Continue NGT and monitor Continue IVF Monitor and replete electrolytes appropriately GI and surgery recommendations noted Continue NPO Continue solumedrol (4) Hypokalemia: K is 3.5 today. Was 3.0 yesterday Will give more repletion today and monitor DVT ppx - hep sq Admission and Anticipated Discharge Date Admission Date: April 27, 2020 Subjective Patient seen and examined Reports abd pain is improved Nausea resolved. No vomiting. Still no bowel movement or passage of flatus No fevers, chills Physical Exam Constitutional: + well hydrated; no acute distress Eyes: PERRL, conjunctivae normal, anicteric sclerae ENMT: external ear and nose normal, oropharynx normal Respiratory: normal respiratory effort, lungs clear to auscultation Cardiovascular: RRR, no murmur, no edema Gastrointestinal (Abdomen): Mild distention, +right lower abdominal tenderness, soft, normoactive bowel sounds Musculoskeletal: no cyanosis or clubbing, extremities motor strength 5/5 Neurologic: PERRL, EOMI, accommodation nl, no face palsy, no dysarthria Psychiatric: A+Ox3, euthymic affect Results & Data Results & Data ([facility]) Vital Signs (Past 12 Hours) Vital Signs Temp Pulse Resp BP Pulse Ox 04/28/20 07:48 37.1 C 80 14 149/80 H 92 Laboratory Results Laboratory Results - last 24 hr 04/27/20 04/27/20 04/28/20 14:51 23:42 05:09 WBC 9.24 RBC 4.55 Hgb 13.9 Hct 42.0 MCV 92.3 MCH 30.5 MCHC 33.1 RDW Std Deviation 45.9 RDW Coeff of Samia 13.6 Plt Count 273 MPV 9.8 Immature Gran % (Auto) 0.2 Neut % (Auto) 87.9 Lymph % (Auto) 9.2 [place] % (Auto) 2.5 Eos % (Auto) 0.1 Baso % (Auto) 0.1 Neut # (Auto) 8.12 H Lymph # (Auto) 0.85 L [place] # (Auto) 0.23 Eos # (Auto) 0.01 Baso # (Auto) 0.01 Immature Gran # (Auto) 0.02 Sodium 142 Potassium 3.3 L Chloride 109 H Carbon Dioxide 28 Anion Gap 5.0 BUN 10 Creatinine 0.61 Est Cr Clr Drug Dosing 116.2 Est GFR ( Amer) 126.0 Est GFR (Non-Af Amer) 108.7 BUN/Creatinine Ratio 16.4 Glucose 93 Calcium 8.3 L Phosphorus Magnesium 2.0 Urine Color Dark Yellow Urine Appearance Clear Urine pH 5.0 Ur Specific [place] > 1.045 H Urine Protein Negative Urine Glucose (UA) Negative Urine Ketones 1+ H Urine Blood 2+ H Urine Nitrite Negative Urine Bilirubin Negative Urine Urobilinogen Negative Ur Leukocyte Esterase Negative Urine WBC (Auto) 1-5 Urine RBC (Auto) 10-30 H U Hyaline Cast (Auto) 10-30 H U Epithel Cells (Auto) >30 H Urine Bacteria (Auto) Negative 04/28/20 05:09 WBC RBC Hgb Hct MCV MCH MCHC RDW Std Deviation RDW Coeff of Samia Plt Count MPV Immature Gran % (Auto) Neut % (Auto) Lymph % (Auto) [place] % (Auto) Eos % (Auto) Baso % (Auto) Neut # (Auto) Lymph # (Auto) [place] # (Auto) Eos # (Auto) Baso # (Auto) Immature Gran # (Auto) Sodium 139 Potassium 3.5 Chloride 106 Carbon Dioxide 24 Anion Gap 9.0 BUN 7 Creatinine 0.55 L Est Cr Clr Drug Dosing 128.9 Est GFR ( Amer) 130.4 Est GFR (Non-Af Amer) 112.5 BUN/Creatinine Ratio 13.5 Glucose 99 Calcium 8.8 Phosphorus 2.5 Magnesium 1.9 Urine Color Urine Appearance Urine pH Ur Specific [place] Urine Protein Urine Glucose (UA) Urine Ketones Urine Blood Urine Nitrite Urine Bilirubin Urine Urobilinogen Ur Leukocyte Esterase Urine WBC (Auto) Urine RBC (Auto) U Hyaline Cast (Auto) U Epithel Cells (Auto) Urine Bacteria (Auto) Diagnostic Findings Abdominal XR FINDINGS: Status post placement of an enteric tube, distal tip projected over the region of the proximal gastric lumen. Persistent small bowel dilation which appears unchanged from comparison. No renal calculi. No ureteral calculi. No pneumoperitoneum or pneumatosis. No fracture. IMPRESSION: 1. Status post placement of an enteric tube, distal tip projected over the proximal gastric lumen. 2. Persistent small bowel obstruction without pneumoperitoneum. (1) Crohn's disease Gastrointestinal tract location: unspecified location Digestive disease complication type: other complication Qualified Code(s): K50.918 - Crohn's disease, unspecified, with other complication (2) Abdominal pain Abdominal location: unspecified location Qualified Code(s): R10.9 - Unspecified abdominal pain
[2020-04-28] MEDS: POTASSIUM CHLORIDE / WTR 10 MEQ/100 ML PLCT IV SCH ×2 (12:52→13:39)
[2020-04-28] MEDS: HEPARIN SOD 5,000 UNIT/0.5 ML VIAL SQ SCH (21:24)
[2020-04-29] MEDS: LORazepam 0.5 MG/1 ML VIAL IV PRN ×2 (01:36→18:45)
[2020-04-29] MEDS: methylPREDNISolone 40 MG in SYRINGE 0 ML IV SCH ×2 (02:01→14:26)
[2020-04-29] MEDS: HYDROmorphone INJ 0.5 MG/0.5 ML SYR IV PRN ×4 (04:19→20:27)
[2020-04-29 06:12] LABS: Hematocrit (blood only) 40.1 % (37-47); Hemoglobin 13.3 g/dL (12.0-16.0); Mean Corpuscular Hemoglobin 30.5 pg (25-34); Mean Corpuscular Hgb Conc 33.2 g/dL (32-36); Mean Platelet Volume 9.7 fL (7.4-10.4); Platelet Count 314 K/uL (130-400); RDW Coefficient of Variation 13.5 % (11.5-14.5); RDW Standard Deviation 45.2 fL (36.4-46.3); Red Blood Count 4.36 M/uL (4.2-5.4); White Blood Count 13.16 K/uL (4.8-10.8)
[2020-04-29 06:41] LABS: BUN Creatinine Ratio 12.7 (10-20); Calcium 8.7 mg/dl (8.5-10.1); Creatinine Clr Calc Pharmacy 133.8 ml/min; Est GFR (Non-African American) 113.9; Magnesium 2.1 mg/dl (1.8-2.4); Potassium 3.2 mmol/L (3.5-5.1)
[2020-04-29 06:42] LABS: Phosphorus 1.7 mg/dl (2.5-4.9)
--- NOTE | 2020-04-29 08:40 | Surgery Progress Note ---
Date of Service April 29, 2020 Assessment & Plan (1) SBO (small bowel obstruction): Patient with h/o Crohn's here with SBO KUB yesterday showed some improvement Pt reports she is starting to pass flatus and she had a BM yesterday NGT output has been low; from our standpoint okay to remove NGT and start on clear liquids She has been started on steroids per GI Pt seen and examined with Dr. Manzanares Admission and Anticipated Discharge Date Admission Date: April 27, 2020 Subjective Patient states she has a sore throat this AM from NGT. She says she is starting to pass gas and had a BM. Physical Exam Physical Exam: awake/alert Gastrointestinal (Abdomen): Inspection/Auscultation: abdomen not distended Percussion/Palpation: abdomen soft NGT with bilious output (320cc) Results & Data ([facility]) Vital Signs (Past 12 Hours) Vital Signs Temp Pulse Resp BP Pulse Ox 04/29/20 07:45 36.5 C 87 16 149/83 H 93 04/28/20 23:39 36.8 C 74 16 158/82 H 94 PG Care Time/CCT Total # of Minutes Spent Total Time Spent with Patient: Total time spent is greater than 50% in coordination of care (as documented) at patient's floor/unit and/or counseling patient: Coding Level of Care Code 51138 Subseq Hosp Care Lvl 1 Diagnoses SBO (small bowel obstruction) K56.609
[2020-04-29] MEDS: PANTOprazole 40 MG in SYRINGE 0 ML IV SCH ×2 (08:49→21:50)
[2020-04-29] MEDS: HEPARIN SOD 5,000 UNIT/0.5 ML VIAL SQ SCH ×2 (08:49→21:48)
[2020-04-29] MEDS ORDERED: POTASSIUM PHOS 3 MMOL/1 ML INFUSION IV STA (11:28)
--- NOTE | 2020-04-29 11:31 | Hospitalist Progress Note ---
Date of Service April 29, 2020 Assessment & Plan (1) SBO (small bowel obstruction): (2) Crohn's disease: (3) Abdominal pain: SBO at ileocolonic anastomosis Improving Pain is remarkabley improved Spoke with RN to discontinue NGT K is 3.2 and Phos 1.7 today. Replete electrolytes appropriately and monitor Start clears and advance as tolerated If tolerating well, discontinue IVF Continue IV solumedrol for today and plan to transition to prednisone tomorrow per GI (4) Hypokalemia: K is 3.2 today. Will give more repletion today and monitor DVT ppx - hep sq Dispo - Possible discharge tomorrow or next Admission and Anticipated Discharge Date Admission Date: April 27, 2020 Subjective Patient seen and examined earlier this AM Still had NGT in situ Reported 2 Bowel movement since yesterday evening Nausea has resolved Abd pain remarkabley improved Denied any other problems Physical Exam Constitutional: + well hydrated; no acute distress Eyes: PERRL, conjunctivae normal, anicteric sclerae ENMT: external ear and nose normal, oropharynx normal Respiratory: normal respiratory effort, lungs clear to auscultation Cardiovascular: RRR, no murmur, no edema Gastrointestinal (Abdomen): Inspection/Auscultation: abdomen normal to inspect ion and normal bowel sounds; abdomen not distended Percussion/Palpation: + abdomen tender (Mild RLQ (improved)) Musculoskeletal: no cyanosis or clubbing, extremities motor strength 5/5 Neurologic: PERRL, EOMI, accommodation nl, no face palsy, no dysarthria Psychiatric: A+Ox3, euthymic affect Results & Data Results & Data ([facility]) Vital Signs (Past 12 Hours) Vital Signs Temp Pulse Resp BP Pulse Ox 04/29/20 07:45 36.5 C 87 16 149/83 H 93 04/28/20 23:39 36.8 C 74 16 158/82 H 94 Laboratory Results Laboratory Results - last 24 hr 04/29/20 04/29/20 05:31 05:31 WBC 13.16 H RBC 4.36 Hgb 13.3 Hct 40.1 MCV 92.0 MCH 30.5 MCHC 33.2 RDW Std Deviation 45.2 RDW Coeff of Samia 13.5 Plt Count 314 MPV 9.7 Sodium 139 Potassium 3.2 L Chloride 104 Carbon Dioxide 26 Anion Gap 9.0 BUN 7 Creatinine 0.53 L Est Cr Clr Drug Dosing 133.8 Est GFR ( Amer) 132.0 Est GFR (Non-Af Amer) 113.9 BUN/Creatinine Ratio 12.7 Glucose 101 H Calcium 8.7 Phosphorus 1.7 L Magnesium 2.1 (1) Crohn's disease Gastrointestinal tract location: unspecified location Digestive disease complication type: other complication Qualified Code(s): K50.918 - Crohn's disease, unspecified, with other complication (2) Abdominal pain Abdominal location: unspecified location Qualified Code(s): R10.9 - Un specified abdominal pain
[2020-04-29] MEDS ORDERED: POTASSIUM PHOSPHATE 30 MMOL in SODIUM CHLORIDE 0.9% 500 ML IV ONE (11:45)
[2020-04-29] MEDS: SODIUM CHLORIDE 0.9% 1000ML 1,000 ML IV SCH (12:44)
--- NOTE | 2020-04-29 15:36 | Gastroenterology Progress Note ---
Date of Service April 29, 2020 Assessment & Plan (1) SBO (small bowel obstruction): (2) Crohn's disease: improving SBO Recs: continue IV solumedrol, change to 8 week prednisone taper upon discharge continue clear liquid diet, can advance tomorrow morning as tolerated pain control prn, anti-emetics prn will need close follow up with Dr. Rowley as an outpatient rest as per primary team Admission and Anticipated Discharge Date Admission Date: April 27, 2020 Subjective no events overnight, passing flatus and bm this morning, NG tube was removed. tolerating clear liquid diet now. pain improving. afebrile Review of Systems Constitutional: no fever and no chills Respiratory: no cough, no dyspnea and no dyspnea on exertion Cardiovascular: no chest pain and no dyspnea Gastrointestinal: as per Subjective / HPI Psychiatric: no depression and no anxiety Physical Exam Constitutional: WD/WN, vitals as above Respiratory: normal respiratory effort, lungs clear to auscultation Cardiovascular: RRR, no murmur, no edema Gastrointestinal (Abdomen): normal bowel sounds, soft, nontender, no hepatosplenomegaly Musculoskeletal: no lower extremity edema Psychiatric: A+Ox3, euthymic affect Results & Data Results & Data ([facility]) Vital Signs (Past 12 Hours) Vital Signs Temp Pulse Resp BP Pulse Ox 04/29/20 07:45 36.5 C 87 16 149/83 H 93 PG Care Time/CCT Total # of Minutes Spent Total Time Spent with Patient: Total time spent is greater than 50% in coordination of care (as documented) at patient's floor/unit and/or counseling patient: Coding Level of Care Code 67514 [facility] L[facility] Diagnoses SBO (small bowel obstruction) K56.609 Crohn's disease K50.918 Gastrointestinal tract location: unspecified location Digestive disease complication type: other complication (1) Crohn's disease Gastrointestinal tract location: unspecified location Digestive disease complication type: other complication Qualified Code(s): K50.918 - Crohn's disease, unspecified, with other complication
[2020-04-30] MEDS: HYDROmorphone INJ 0.5 MG/0.5 ML SYR IV PRN ×2 (01:54→07:35)
[2020-04-30] MEDS: methylPREDNISolone 40 MG in SYRINGE 0 ML IV SCH ×2 (01:54→14:19)
[2020-04-30 05:37] LABS: Hematocrit (blood only) 39.3 % (37-47); Hemoglobin 13.4 g/dL (12.0-16.0); Mean Corpuscular Hemoglobin 30.7 pg (25-34); Mean Corpuscular Hgb Conc 34.1 g/dL (32-36); Mean Corpuscular Volume 89.9 fL (80-100); Mean Platelet Volume 9.6 fL (7.4-10.4); Platelet Count 301 K/uL (130-400); RDW Coefficient of Variation 13.4 % (11.5-14.5); RDW Standard Deviation 43.7 fL (36.4-46.3); Red Blood Count 4.37 M/uL (4.2-5.4); White Blood Count 8.59 K/uL (4.8-10.8)
[2020-04-30 06:08] LABS: BUN Creatinine Ratio 11.3 (10-20); Calcium 8.9 mg/dl (8.5-10.1); Creatinine Clr Calc Pharmacy 120.2 ml/min; Est GFR (African American) 127.4; Est GFR (Non-African American) 109.9; Magnesium 2.1 mg/dl (1.8-2.4); Potassium 3.2 mmol/L (3.5-5.1)
[2020-04-30 06:24] LABS: Phosphorus 2.3 mg/dl (2.5-4.9)
[2020-04-30] MEDS ORDERED: POTASSIUM PHOS 3 MMOL/1 ML INFUSION IV STA (07:25)
[2020-04-30] MEDS: PANTOprazole 40 MG in SYRINGE 0 ML IV SCH (07:36)
[2020-04-30] MEDS: HEPARIN SOD 5,000 UNIT/0.5 ML VIAL SQ SCH (07:36)
[2020-04-30] MEDS ORDERED: POTASSIUM PHOSPHATE 40 MMOL in SODIUM CHLORIDE 0.9% 1000ML 1,000 ML IV ONE (07:45)
--- NOTE | 2020-04-30 09:30 | Surgery Progress Note ---
Date of Service April 30, 2020 Assessment & Plan (1) SBO (small bowel obstruction): Patient with history of Crohn's here with SBO Patient has tolerated NGT removal and a clear liquid diet She is having + bowel function and abdomen is soft Will advance to low fiber diet From our standpoint if she tolerates low fiber can be discharged this afternoon, otherwise discharge planning per medicine We will sign off, but please call if any questions/concerns Pt seen and examined with Dr. Manzanares Admission and Anticipated Discharge Date Admission Date: April 27, 2020 Subjective Patient offers no complaints. She is still having + bowel function. Tolerated clears liquids without issues. Physical Exam Physical Exam: awake/alert Gastrointestinal (Abdomen): Percussion/Palpation: abdomen soft; abdomen nonte nder Results & Data ([facility]) Vital Signs (Past 12 Hours) Vital Signs Temp Pulse Resp BP Pulse Ox 04/30/20 07:57 36.7 C 73 16 152/77 H 91 04/29/20 23:10 36.7 C 77 14 149/76 H 92 PG Care Time/CCT Total # of Minutes Spent Total Time Spent with Patient: Total time spent is greater than 50% in coordination of care (as documented) at patient's floor/unit and/or counseling patient: Coding Level of Care Code 62798 [facility] Lvl 1 Diagnoses SBO (small bowel obstruction) K56.609
--- NOTE | 2020-04-30 12:45 | Discharge Summary ---
Date of Service April 30, 2020 Admission HPI Per Admitting Provider 44-year-old female with past medical history significant for Crohn's disease, history of large intestine enteritis, chronic maxillary sinusitis, secondary amenorrhea, tobacco use disorder, depression, status post intestinal anastomosis, who presents with abdominal pain. The pain started yesterday, on and off. When she came in, it was 10/10 in severity, it was associated with nausea. Last bowel movement was yesterday morning. Currently, after pain medication, pain is about 4/10 in severity. Denies any blood in stools or black stools. Normal bladder, normal bowel movements. Denies any headache, no blurred vision, no earache, no runny nose, no sore throat, no dysphagia, no chest pain, no shortness of breath, no fever, no cough. The patient is having a rash in his right thigh region for the last couple of years, for which she recently had a biopsy and this rash is developing with bulls eye pattern.. The patient says she had a tick bite several months ago on her left leg and at that time checked for tick-borne disease. Labs were done, which was unremarkable. Admission Exam Per Admitting Provider GENERAL: The patient is of moderate build, not in acute distress. VITAL SIGNS: Temperature 37, pulse 90, respiratory rate 17, blood pressure 120/82, oxygen 93% on room air. HEENT: Pupils equal, round, and reactive to light. Oral mucosa moist. NECK: No JVD, no neck masses seen. CARDIOVASCULAR: S1, S2 heard. Regular rate and rhythm, no murmur, no gallop. RESPIRATORY SYSTEM: Normal AP diameter. No accessory muscle use. No wheezing, no crackles. ABDOMEN: Soft, bowel sounds absent, mild diffuse tender. No distention seen. No guarding, no rigidity. CENTRAL NERVOUS SYSTEM: Cranial nerves II-XII are grossly intact. Nonfocal. EXTREMITIES: No edema seen. There is a rash on the right medial aspect of thigh with a bulls eye kind of a rash and biopsy evens is seen. Principal Diagnosis SBO Crohn's disease Hypokalemia Discharge Exam Constitutional + well hydrated; no acute distress Eyes PERRL, conjunctivae normal, anicteric sclerae ENMT external ear and nose normal, oropharynx normal Respiratory normal respiratory effort, lungs clear to auscultation Cardiovascular RRR, no murmur, no edema Gastrointestinal (Abdomen) Inspection/Auscultation: abdomen normal to inspection and normal bowel sounds; abdomen not distended Percussion/Palpation: abdomen nontender Musculoskeletal no cyanosis or clubbing, extremities motor strength 5/5 Neurologic PERRL, EOMI, accommodation nl, no face palsy, no dysarthria Psychiatric A+Ox3, euthymic affect Discharge Data Allergies Allergy/AdvReac Type Severity Reaction Status Date / Time No Known Allergies Allergy Verified 04/27/20 03:21 Consultations 04/27/20 05:16 ED Decision to Admit Stat 04/27/20 07:07 Consult Case Management - Discharge Planning Routine 04/27/20 08:00 Consult Gastroenterology Routine Consult General Surgery Routine Ordered Studies 04/27/20 03:05 CT abd pelvis IV con only Urgent The lung bases are essentially clear. No pneumoperitoneum. No pneumatosis. No fractures within the visualized osseous structures. The liver, spleen, adrenal glands, pancreas, and kidneys are unremarkable. There are 2 stones within the gallbladder. No gallbladder wall thickening. The main portal vein is patent. No retroperitoneal lymphadenopathy. Normal caliber abdominal aorta. The bladder, uterus, bilateral adnexa are within normal limits. A single enlarged right inguinal lymph node measuring 2.3 x 1.3 cm. This is increased in size. A single right external iliac lymph node has also increased in size and measures 1.2 cm. Prior right hemicolectomy. Mild thickening at the anastomotic suture which has slightly progressed. There is also mild thickening and fat stranding involving a short segment of the distended distal ileum within the deep pelvis. Focal narrowing at the ileocolonic anastomosis as seen on image 39 at the area of bowel wall thickening. Proximal to this the distal small bowel is distended up to 4.1 cm. Therefore, this is consistent with the transition point resulting in a small bowel obstruction. IMPRESSION: 1. Small bowel obstruction with the transition point at the ileocolonic anastomosis secondary to the bowel wall thickening/narrowing at the anastomosis. This is likely a result of patient's known Crohn's disease. 2. Cholelithiasis. 3. Mild right external iliac and inguinal lymphadenopathy which is new from the prior study. This is indeterminate but could be reactive to the inflammatory bowel disease. Follow-up recommended to ensure resolution. Hospital Course (1) SBO (small bowel obstruction): (2) Crohn's disease: (3) Abdominal pain: SBO at ileocolonic anastomosis Resolved Pain is resolved Managed conservatively. Initially treated with NGT and bowel rest Started moving bowel and tolerating diet Was evaluated by GI and started on iv solumedrol Discharged on prednisone taper over 8 weeks per GI recommendations (60mg daily for 7 days, reduced by 10mg per week until completed) Patient advised to follow up with GI about when to resume her humira (4) Hypokalemia: Hypophosphatemia K was 3 on admission Aggressively repleted Discharge on potassium phosphate supplementation To get BMP within 1 week and follow up results with PCP Total Time Total Time Spent Total Time Spent (In Minutes): 40 Total Time Includes: Examination of the Patient, Discharge Planning, Medication Reconciliation and Communication With Other Providers Discharge Plan Discharge Items Patient Disposition: Home - Self-Care Reason For Visit: ABDOMINAL PAIN Discharge Diagnosis: Small bowel obstruction Activity: Resume your previous activity Non-emergency contact: Primary Care Provider and Sinker Puller Call non-emergency contact if: you have any medication questions and your symptoms worsen Follow-up/Referrals: Giovany Correa DO [Primary Care Provider] - 05/07/20 11:00 am (Date & Time 05/07/2020 11:00 AM Provider Giovany Correa DO [facility] ) Diet: Low Fiber Ambulatory Orders: Basic Metabolic Panel (Routine) Timeframe: 1 Week Location: Determined by Patient Ordered By: Inez Fuentes Phosphorus (Routine) Timeframe: 1 Week Location: Determined by Patient Ordered By: Inez Fuentes Addtl Attending Provider Instructions: Ms Cruz. You came to the hospital complaining of abdominal pain. You were evaluated and found to have small bowel obstruction. You were managed with medications and the obstruction resolved. You were seen by Gastroenterology and started on prednisone taper. You are being discharged on prednisone 60mg daily for 1 week, then reduce to 50mg daily for 1 week, then 40mg daily for 1 week, then 30mg daily for 1 week, 20mg daily for 1 week, then 10mg daily until complete (Total of 8 week prednisone taper). Please stop taking your humira for now until you follow up and discuss with your teacher about when to resume. Please follow up with Gastroenterology office. Your potassium level was also low. You are being discharged on a few days of potassium supplementation. Please do the blood test (Basic metabolic panel) within 1 week and follow up the result with your Primary Doctor. It was a pleasure taking care of you. Pending Studies at Discharge: No Stand-Alone Forms: My [facility], Smoking Cessation Medications and DC Order Prescriptions: New potassium phosphate, monobasic 500 mg tablet,soluble 1,000 mg PO DAILY Qty: 7 RF: 0 acetaminophen 325 mg capsule 650 mg PO TID PRN (Reason: fever or pain) Qty: 30 RF: 0 prednisone 20 mg tablet See Rx Instructions .ROUTE .COMPLEX 56 Days Qty: 56 RF: 0 Continued fluoxetine 40 mg capsule 40 mg PO DAILY RF: 0 bupropion HCl 100 mg tablet 100 mg PO TID RF: 0 dicyclomine 10 mg capsule 10 mg PO TID RF: 0 pantoprazole 40 mg tablet,delayed release (DR/EC) 40 mg PO HS RF: 0 lorazepam 0.5 mg Tablet 0.5 mg PO TID RF: 0 sodium chloride [Saline Nasal] 0.65 % Aerosol,[place] 2 spray INTRANASAL DIRECTED PRN (Reason: Dry Nasal Passages) RF: 0 Discontinued Humira(CF) Pen 40 mg/0.4 mL pen injector kit 40 mg SUBCUT UD RF: 0 Discharge Orders: Discharge Order (Routine); Ordered 04/30/20 Ordered By: Inez Fuentes Admission Data Admit Date/Time: 04/27/20 05:59 Attending Provider: Inez Fuentes I. Admit Provider: Zhou Andrea Primary Care Provider: Giovany Correa Other Providers: Zhou Andrea ; Cheryl Rowley Mark Other Interventions: Discharge Summary Assessment (RN) Last Done: 04/30/20 11:12
[2020-04-30] MEDS ORDERED: ACETAMINOPHEN 325 MG TAB PO PRN (12:50)
[2020-04-30] MEDS ORDERED: ACETAMINOPHEN 325 MG TAB ONE (12:53)
--- NOTE | 2020-04-30 15:18 | Gastroenterology Progress Note ---
Date of Service April 30, 2020 Assessment & Plan (1) SBO (small bowel obstruction): 44 y/o female with PMHx Crohn's (was on Humira but was DC'd due to rash, possible Lyme), admitted with SBO; was having abd pains, nausea, s/p NGT placement, with CT = SBO at ileocolonic anastomosis. Pt has clinically improved since then, NGT removed, tolerated advancing diet. Had soft brown BM today. 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 - Would DC on oral prednisone 40 mg daily x 1 month, then taper thereafter - Follow-up in 1-2 weeks with GI ( when decision can be made regarding her Humira) (2) Crohn's disease: Admission and Anticipated Discharge Date Admission Date: April 27, 2020 Supervising Physician Co-Signing Physician Notes I performed a history and physical examination of the patient today, including specifically on physical exam - soft abdomen. I have discussed the patient's management with the advanced practitioner. Please refer to the nurse practitioner's note for the documented findings and plan of care. Admitted with SBO with transition point near the ileocolonic anastomosis, this is the same area of inflammation she had on multiple prior imaging. She was started on Steroids over the weekend and felt better and having BM now. Plan: Follow up in GI office with to taper down her steroids and resume her Humira. She had enlarged right sided inguinal LN and may need referral to surgery for Bx Vs repeat imaging. 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 Subjective Pt feeling somewhat improved; had soft brown BM today. Tolerated advancing her diet. Denies n/v, abd pain. Labs reviewed and are stable; she's afebrile. Review of Systems Review of Systems: All systems reviewed & are unremarkable except as noted in HPI & below Physical Exam Constitutional: WD/WN, vitals as above Eyes: + anicteric sclerae Respiratory: normal respiratory effort Cardiovascular: Rate/Rhythm: regular rate and regular rhythm Gastrointestinal (Abdomen): Inspection/Auscultation: abdomen normal to inspection Percussion/Palpation: abdomen soft; abdomen nontender Skin: no rashes, warm and dry Psychiatric: A+Ox3, euthymic affect Results & Data ([facility]) Vital Signs (Past 12 Hours) Vital Signs Temp Pulse Resp BP BP Pulse Ox 04/30/20 11:12 36.7 C 73 16 152/77 H 116/73 91 04/30/20 07:57 36.7 C 73 16 152/77 H 91 Laboratory Results 04/30/20 04/30/20 Range/Units 05:08 05:08 WBC 8.59 (4.8-10.8) K/uL RBC 4.37 (4.2-5.4) M/uL Hgb 13.4 (12.0-16.0) g/dL Hct 39.3 (37-47) % MCV 89.9 (80-100) fL MCH 30.7 (25-34) pg MCHC 34.1 (32-36) g/dL RDW Std Deviation 43.7 (36.4-46.3) fL RDW Coeff of Samia 13.4 (11.5-14.5) % Plt Count 301 (130-400) K/uL MPV 9.6 (7.4-10.4) fL Sodium 141 (136-145) mmol/L Potassium 3.2 L (3.5-5.1) mmol/L Chloride 104 (98-107) mmol/L Carbon Dioxide 29 (21-32) mmol/L Anion Gap 8.0 (3-11) BUN 7 (7-18) mg/dl Creatinine 0.59 L (0.6-1.2) mg/dl Est Cr Clr Drug Dosing 120.2 ml/min Est GFR ( Amer) 127.4 Est GFR (Non-Af Amer) 109.9 BUN/Creatinine Ratio 11.3 (10-20) Glucose 127 H (70-99) mg/dl Calcium 8.9 (8.5-10.1) mg/dl Phosphorus 2.3 L (2.5-4.9) mg/dl Magnesium 2.1 (1.8-2.4) mg/dl (1) Crohn's disease Digestive disease complication type: other complication Gastrointestinal tract location: unspecified location Qualified Code(s): K50.918 - Crohn's disease, unspecified, with other complication
[2020-05-03 22:01] LABS: 18KDIGG Band REACTIVE; 23KDIGG Band REACTIVE; 23KDIGM Band NON-REACTIVE; 28KDIGG Band NON-REACTIVE; 30KDIGG Band NON-REACTIVE; 39KDIGG Band REACTIVE; 39KDIGM Band NON-REACTIVE; 41KDIGG Band REACTIVE; 41KDIGM Band NON-REACTIVE; 45KDIGG Band NON-REACTIVE; 58KDIGG Band REACTIVE; 66KDIGG Band NON-REACTIVE; 93KDIGG Band NON-REACTIVE; Lyme Antibodies, WB IgG POSITIVE (NEGATIVE); Lyme Antibodies, WB IgM NEGATIVE (NEGATIVE)
== END 2020-04-30 15:04 | disposition home or self-care (01) | DRG 389 ==
LOC: ED 02:43 → 3W 05:59

== ENCOUNTER 2020-08-18 17:34 | Inpatient (IN) ==
[2020-08-18] MEDS ORDERED: SODIUM CHLORIDE 0.9% 1000ML 1,000 ML IV ONE ×2 (18:15→21:10)
[2020-08-18] MEDS ORDERED: ONDANSETRON INJ 2 MG/ML 2 ML VIAL IV STA ×3 (18:15→21:13)
[2020-08-18] MEDS ORDERED: HYDROmorphone INJ 1 MG/ML SYRINGE IV STA (18:15)
--- NOTE | 2020-08-18 18:20 | Emergency Department Note ---
History of Present Illness General Chief complaint: Abdominal Pain Stated complaint: ABD PAIN - BLOOD IN STOOL Time Seen by Provider: 08/18/20 18:03 Source: patient Mode of arrival: ambulatory Limitations: no limitations History of Present Illness Maximum Pain Intensity: 9 This patient has a long history of Crohn's disease, comes in with abdominal pain and blood in her stool. Started yesterday. She says this feels like her Crohn's exacerbation except for she usually does not have blood in her stool and she says it feels like after she eats something she should but it still persist. Some nausea but no vomiting. She had Covid-like symptoms last week and supposed to be scheduled to be tested tomorrow. She has had no cough or shortness of breath since then and no fever or chills since then. She had body aches but those have also resolved. Denies dysuria hematuria. No fall or trauma. She has had about 6 surgeries related to her Crohn's disease. No trauma. Her abdominal pain is diffuse is more in the left side is constant and nothing particular makes it better or worse Home Medications Medication Instructions Recorded Confirmed Type lorazepam 0.5 mg PO TID 04/20/19 08/18/20 History bupropion HCl 100 mg PO TID 04/27/20 08/18/20 History dicyclomine 10 mg PO TID 04/27/20 08/18/20 History fluoxetine 40 mg PO DAILY 04/27/20 08/18/20 History pantoprazole 40 mg PO HS 04/27/20 08/18/20 History acetaminophen 650 mg PO TID PRN #30 cap 04/30/20 08/18/20 Rx adalimumab [Humira(CF) Pen] 40 mg SUBCUT UD 08/18/20 08/18/20 History albuterol sulfate 2 puff INHALATION QID 08/18/20 08/18/20 History azelastine 2 spray INTRANASAL BID 08/18/20 08/18/20 History fish pfo-qzelt-5-vit C-vit E 2.5 g PO DAILY 08/18/20 08/18/20 History Allergies Allergy/AdvReac Type Severity Reaction Status Date / Time No Known Allergies Allergy Verified 04/27/20 03:21 Past Med/Surg History Medical History (Updated 08/19/20 @ 00:51 by Tyshawn Gil MD) Abnormal CT scan, chest Acute hypoxemic respiratory failure Chronic maxillary sinusitis Crohn's disease Depression with anxiety History of Clostridioides difficile colitis History of deviated nasal septum History of erythema nodosum History of uveitis Tobacco abuse Surgical History History of colectomy History of colonoscopy Last 07/2019 History of rhinoplasty Multiple nasal surgeries x3 Family History Father Heart disease TIA (transient ischemic attack) Mother Heart disease FH: diverticulitis Sister Crohn's disease Diabetes Social History Smoking Status: Current every day smoker Tobacco Type: Cigarettes Years Smoked: 35; Cigarettes Per Day: 10; Second Hand Exposure: No; Hx Alcohol Use: Yes Alcohol type: wine Alcohol type Comment: Once a month Hx Substance Use: Yes Last Used Substance Other:: 3 to 4 weeks ago Preferred Language: Thai Communication Ability: Effective Battery Tester Field Required: No Beliefs That Will Affect Care: None marital status: Single Current Living Situation: Other Feels Safe at Home: Yes Assistive Devices: None Review of Systems A total of 10 systems reviewed and were otherwise negative Denies as she says she is postmenopausal Physical Exam Vital Signs Vital Signs - 24 hr 08/18/20 17:39 08/18/20 18:41 08/18/20 19:27 Temperature 37.2 C Temperature Source Temporal Artery Scan Pulse Rate 95 H 75 79 Pulse Rate [Apical] 82 Pulse Rate from SpO2 Sensor 76 79 Pulse Rhythm [Apical] Regular Respiratory Rate 18 14 16 Respiratory Effort / Characteristics Non-Labored Respiratory Depth Normal Respiratory Pattern Regular Blood Pressure 137/77 151/89 H 141/79 H Blood Pressure [Left Arm] 151/89 H Blood Pressure Mean 97 101 103 Blood Pressure Mean [Left Arm] 109 Blood Pressure Position [Left Arm] Lying Pulse Oximetry 95 95 93 Oxygen Delivery Method Room Air Room Air Sepsis Recent Fever Within 48 Hours No Sepsis New/Unexplained Change in Mental Status N/A Sepsis Action Taken by Nursing No Action Required 08/18/20 19:30 08/18/20 20:00 08/18/20 20:57 Temperature Temperature Source Pulse Rate 79 78 82 Pulse Rate [Apical] Pulse Rate from SpO2 Sensor 80 78 82 Pulse Rhythm [Apical] Respiratory Rate 16 17 Respiratory Effort / Characteristics Respiratory Depth Respiratory Pattern Blood Pressure 141/78 H 129/87 159/84 H Blood Pressure [Left Arm] Blood Pressure Mean 93 90 102 Blood Pressure Mean [Left Arm] Blood Pressure Position [Left Arm] Pulse Oximetry 93 92 97 Oxygen Delivery Method Sepsis Recent Fever Within 48 Hours Sepsis New/Unexplained Change in Mental Status Sepsis Action Taken by Nursing 08/18/20 21:00 08/18/20 21:30 08/18/20 22:00 Temperature Temperature Source Pulse Rate 75 74 72 Pulse Rate [Apical] Pulse Rate from SpO2 Sensor 74 74 71 Pulse Rhythm [Apical] Respiratory Rate 31 H 17 14 Respiratory Effort / Characteristics Respiratory Depth Respiratory Pattern Blood Pressure 143/89 H 138/85 145/85 H Blood Pressure [Left Arm] Blood Pressure Mean 101 90 102 Blood Pressure Mean [Left Arm] Blood Pressure Position [Left Arm] Pulse Oximetry 98 94 96 Oxygen Delivery Method Sepsis Recent Fever Within 48 Hours Sepsis New/Unexplained Change in Mental Status Sepsis Action Taken by Nursing 08/18/20 22:30 08/18/20 23:00 Temperature Temperature Source Pulse Rate 72 77 Pulse Rate [Apical] Pulse Rate from SpO2 Sensor 72 77 Pulse Rhythm [Apical] Respiratory Rate 24 16 Respiratory Effort / Characteristics Respiratory Depth Respiratory Pattern Blood Pressure 134/80 139/83 Blood Pressure [Left Arm] Blood Pressure Mean 93 97 Blood Pressure Mean [Left Arm] Blood Pressure Position [Left Arm] Pulse Oximetry 92 95 Oxygen Delivery Method Sepsis Recent Fever Within 48 Hours Sepsis New/Unexplained Change in Mental Status Sepsis Action Taken by Nursing General: Well developed well nourished female who appears in no acute distress, breathing comfortably on room air. Normal speech HEENT: Normal cephalic atraumatic. Pupils are equal round and reactive to light. Extraocular movements are intact. Oropharynx is pink with moist mucous membranes. No swelling of the mouth lips or tongue. Neck: Supple with a midline trachea. No meningeal signs or stiffness, no JVD or bruits. No Stridor. Chest: Clear to auscultation bilaterally. No wheezes or rhonchi. No increased work of breathing. Heart: Regular rate and rhythm without murmurs or gallops. Abdomen: Soft mildly tender to palpation in the lower abdomen bilaterally, nondistended without rebound guarding or rigidity. Extremities: No cyanosis clubbing or edema. No calf tenderness or assymetry Spine/Back. Non tender to palpation. No CVA tenderness Skin: Good turgor without rashes. Neurologic exam: Cranial nerves two through 12 are intact. Motor and sensation are intact and symmetrical throughout. Course Administered Medications Discontinued Medications Hydromorphone HCl (Hydromorphone Inj 1 Mg/Ml Syringe) 1 mg IV NOW STA Stop: 08/18/20 18:16 Last Admin: 08/18/20 18:33 Dose: 1 mg Documented by: [id number] Hydromorphone HCl (Hydromorphone Inj 0.5 Mg/0.5 Ml Syr) 0.5 mg IV NOW STA Stop: 08/18/20 21:37 Last Admin: 08/18/20 22:05 Dose: 0.5 mg Documented by: [id number] Sodium Chloride (Nss 1000ml) 1,000 mls @ 999 mls/hr IV .Q1H1M ONE Stop: 08/18/20 19:15 Last Infusion: 08/18/20 19:36 Dose: 0 mls/hr Documented by: [id number] Admin: 08/18/20 18:33 Dose: 999 mls/hr Documented by: [id number] Sodium Chloride (Nss 1000ml) 1,000 mls @ 999 mls/hr IV .Q1H1M ONE Stop: 08/18/20 22:10 Last Infusion: 08/18/20 22:15 Dose: 0 mls/hr Documented by: [id number] Admin: 08/18/20 21:14 Dose: 999 mls/hr Documented by: [id number] Magnesium Sulfate/Dextrose (Magnesium Sulfate / D5w) 1 gm in 100 mls @ 100 mls/hr IV NOW STA Stop: 08/18/20 22:13 Last Infusion: 08/18/20 22:19 Dose: 0 mls/hr Documented by: [id number] Admin: 08/18/20 21:19 Dose: 100 mls/hr Documented by: [id number] Ioversol (Ioversol 100ml) 94 ml IV ONCE ONE Stop: 08/18/20 20:54 Last Admin: 08/18/20 20:53 Dose: 94 ml Documented by: [id number] Ondansetron HCl (Ondansetron Inj 2 Mg/Ml 2 Ml Vial) 4 mg IV NOW STA Stop: 08/18/20 18:16 Last Admin: 08/18/20 18:33 Dose: 4 mg Documented by: [id number] Ondansetron HCl (Ondansetron Inj 2 Mg/Ml 2 Ml Vial) 4 mg IV NOW STA Stop: 08/18/20 19:27 Last Admin: 08/18/20 19:33 Dose: 4 mg Documented by: [id number] Ondansetron HCl (Ondansetron Inj 2 Mg/Ml 2 Ml Vial) 4 mg IV NOW STA Stop: 08/18/20 21:14 Last Admin: 08/18/20 21:19 Dose: 4 mg Documented by: [id number] Critical Care Time Critical Care Time: Yes Total Critical Care Time: 40 Due to the patient's complex medical history and need for frequent reassessment, multiple IV medications, cardiac monitoring and further evaluation after she had a near syncopal episode with frequent reassessment, I have personally spent greater than 40 minutes of critical care time in the direct management of this patient. This includes bedside care, interpretation of diagnostic studies, and testing, discussion with consultants, patient, and family members, and other required patient management activities. This 40 minutes is in excess of all separately billable procedures. Medical Decision Making Differential Diagnosis GI bleed, Crohn's exacerbation, colitis, infection, bowel obstruction, Covid, electrolyte or metabolic abnormality, appendicitis, diverticulitis Medical Records Attestation: I reviewed the patient's medical records. Home Medications Current Medication List: was personally reviewed by me Laboratory Data Attestation: I reviewed the patient's lab results. Result diagrams: 08/18/20 18:37 08/18/20 18:37 Lab Results 08/18/20 08/18/20 08/18/20 Range/Units 18:37 18:37 18:37 WBC 9.29 (4.8-10.8) K/uL RBC 4.34 (4.2-5.4) M/uL Hgb 13.2 (12.0-16.0) g/dL Hct 40.1 (37-47) % MCV 92.4 (80-100) fL MCH 30.4 (25-34) pg MCHC 32.9 (32-36) g/dL RDW Std Deviation 45.5 (36.4-46.3) fL RDW Coeff of Samia 13.4 (11.5-14.5) % Plt Count 364 (130-400) K/uL MPV 9.2 (7.4-10.4) fL Immature Gran % (Auto) 0.2 % Neut % (Auto) 67.6 % Lymph % (Auto) 25.3 % [place] % (Auto) 5.7 % Eos % (Auto) 0.9 % Baso % (Auto) 0.3 % Neut # (Auto) 6.28 (1.4-6.5) K/uL Lymph # (Auto) 2.35 (1.2-3.4) K/uL [place] # (Auto) 0.53 (0.11-0.59) K/uL Eos # (Auto) 0.08 (0-0.5) K/uL Baso # (Auto) 0.03 (0-0.2) K/uL Immature Gran # (Auto) 0.02 (0.00-0.02) K/uL Sodium 142 (136-145) mmol/L Potassium 3.0 L (3.5-5.1) mmol/L Chloride 106 (98-107) mmol/L Carbon Dioxide 30 (21-32) mmol/L Anion Gap 6.0 (3-11) BUN 7 (7-18) mg/dl Creatinine 0.69 (0.6-1.2) mg/dl Est Cr Clr Drug Dosing 110.6 ml/min Est GFR ( Amer) 120.1 Est GFR (Non-Af Amer) 103.7 BUN/Creatinine Ratio 9.8 L (10-20) Glucose 85 (70-99) mg/dl Calcium 8.7 (8.5-10.1) mg/dl Magnesium (1.8-2.4) mg/dl Total Bilirubin 0.3 (0.2-1) mg/dl AST 19 (15-37) U/L ALT 16 (12-78) U/L Alkaline Phosphatase 66 (45-117) U/L Total Protein 7.4 (6.4-8.2) gm/dl Albumin 3.4 (3.4-5.0) gm/dl Globulin 4.0 (2.5-4.0) gm/dl Albumin/Globulin Ratio 0.9 (0.9-2) Lipase 88 (73-393) U/L Urine Color Urine Appearance (Clear) Urine pH (4.5-7.5) Ur Specific [place] (1.000-1.030) Urine Protein (Negative) Urine Glucose (UA) (Negative) Urine Ketones (Negative) Urine Blood (Negative) Urine Nitrite (Negative) Urine Bilirubin (Negative) Urine Urobilinogen (Negative) Ur Leukocyte Esterase (Negative) Urine WBC (Auto) (0-5) /hpf Urine RBC (Auto) (0-4) /hpf U Hyaline Cast (Auto) (0-5) /lpf U Epithel Cells (Auto) (0-5) /lpf Urine Bacteria (Auto) (Negative) COVID-19 Eval Order Covid19 IDNow [facility] SARS-CoV-2, RNA, NAAT (NEGATIVE) 08/18/20 08/18/20 08/18/20 Range/Units 18:37 18:37 19:20 WBC (4.8-10.8) K/uL RBC (4.2-5.4) M/uL Hgb (12.0-16.0) g/dL Hct (37-47) % MCV (80-100) fL MCH (25-34) pg MCHC (32-36) g/dL RDW Std Deviation (36.4-46.3) fL RDW Coeff of Samia (11.5-14.5) % Plt Count (130-400) K/uL MPV (7.4-10.4) fL Immature Gran % (Auto) % Neut % (Auto) % Lymph % (Auto) % [place] % (Auto) % Eos % (Auto) % Baso % (Auto) % Neut # (Auto) (1.4-6.5) K/uL Lymph # (Auto) (1.2-3.4) K/uL [place] # (Auto) (0.11-0.59) K/uL Eos # (Auto) (0-0.5) K/uL Baso # (Auto) (0-0.2) K/uL Immature Gran # (Auto) (0.00-0.02) K/uL Sodium (136-145) mmol/L Potassium (3.5-5.1) mmol/L Chloride (98-107) mmol/L Carbon Dioxide (21-32) mmol/L Anion Gap (3-11) BUN (7-18) mg/dl Creatinine (0.6-1.2) mg/dl Est Cr Clr Drug Dosing ml/min Est GFR ( Amer) Est GFR (Non-Af Amer) BUN/Creatinine Ratio (10-20) Glucose (70-99) mg/dl Calcium (8.5-10.1) mg/dl Magnesium 2.0 (1.8-2.4) mg/dl Total Bilirubin (0.2-1) mg/dl AST (15-37) U/L ALT (12-78) U/L Alkaline Phosphatase (45-117) U/L Total Protein (6.4-8.2) gm/dl Albumin (3.4-5.0) gm/dl Globulin (2.5-4.0) gm/dl Albumin/Globulin Ratio (0.9-2) Lipase (73-393) U/L Urine Color Yellow Urine Appearance Clear (Clear) Urine pH 7.0 (4.5-7.5) Ur Specific [place] 1.012 (1.000-1.030) Urine Protein Negative (Negative) Urine Glucose (UA) Negative (Negative) Urine Ketones Negative (Negative) Urine Blood 2+ H (Negative) Urine Nitrite Negative (Negative) Urine Bilirubin Negative (Negative) Urine Urobilinogen Negative (Negative) Ur Leukocyte Esterase Negative (Negative) Urine WBC (Auto) 1-5 (0-5) /hpf Urine RBC (Auto) 5-10 H (0-4) /hpf U Hyaline Cast (Auto) 0 (0-5) /lpf U Epithel Cells (Auto) 5-10 H (0-5) /lpf Urine Bacteria (Auto) Negative (Negative) COVID-19 Eval Order SARS-CoV-2, RNA, NAAT NEGATIVE (NEGATIVE) Imaging Data Radiologist's Impression: CT of the abdomen pelvis with contrastdiffuse wall thickening and inflammation involving the remaining left transverse colon, lef t's and sigmoid colon as well as rectum indicating colitis possibly Crohn's disease. This is new. There are gas fluid levels within the colon consistent with ileus. No obstruction perforation or abscess seen. 1.8 cm calcified gallstone in the gallbladder without pericholecystic inflammation or bili duct dilatation. The liver gallbladder spleen and pancreas and kidneys are unremarkable. Bladder is partially distended and unremarkable. ECG Data Attestation: I personally reviewed and interpreted this ECG as follows: Indication: + weakness Rate (beats per minute): 73 Rhythm: + normal sinus ECG Intervals/blocks: + Normal QRS, + Short LA and + Prolonged QT ECG [place]: + Normal ECG ST segments: + Normal ST segments ECG Findings: no PACs and no PVCs Comparison ECG Date: from (02/22/20) Change: the following changes noted (QTc has increased) MDM Narrative This patient comes in as described above. She was placed on a manager testing in room B 10. She is here for treatment and evaluation of abdominal pain and bloody stool. She looks well on exam except for being uncomfortable her abdomen is tender but she has no peritonitis. She does have a complex medical history due to her Crohn's disease. IV access established and she was hydrated with 1 L IV normal saline bolus. She was given Dilaudid 1 mg IV and Zofran 4 mg IV, she has had these medications before without difficulty. She is not driving. Multiple blood testing was obtained as well as urinalysis and culture. I did Covid test her as well as she had Covid-like symptoms and also has now GI symp toms. She was placed on isolation. Her white count is not elevated nor does she have a significant fever discussed infection. She has no significant anemia with her hemoglobin of 13.2. Her Covid test was negative. Her potassium is mildly low at 3.0 however she has normal renal function. She has nothing to suggest acute liver or pancreas or gallbladder disease. Her urinalysis does not suggest any definite UTI. She is not as she is postmenopausal by 4- year she tells me. CT scan was obtained and shows colitis diffusely. Shortly after return of the CAT scan she said she felt lightheaded and nauseated and got very pale. We did give her a fluid bolus and check vitals they are unremarkable she had no signs to suggest an allergic reaction to contrast of which she has had multiple times before without problems. She had no hives or rash or itching no airway compromise chest pain or shortness of breath. She was given additional Zofran 4 mg IV. I did check an EKG and there is no ischemia given that her QTC is prolonged and I did give her magnesium 1 g IV but when her lab m ag came back it was not significantly low and was 2.0. She did recover from this episode and is doing better. She did receive additional Dilaudid for pain I do think she needs to be admitted for pain and nausea management and also monitoring as she had a near syncopal episode as well. I have consulted Dr. Andrea to see her in the ER for these measure Continuous cardiac monitoring: An order was placed in the EMR for continuous cardiac monitoring. She was noted to be in normal sinus rhythm a pulse of 80. Impression & Plan Abdominal pain, Crohn's disease, Lab test negative for COVID-19 virus, Nausea, Near syncope Discharge Plan Visit Data Chief Complaint: Abdominal Pain Stated Complaint: ABD PAIN - BLOOD IN STOOL ED Provider: Tyshawn Gil Discharge Problem: Abdominal pain, Crohn's disease, Lab test negative for COVID-19 virus, Nausea, Near syncope Forms Stand Alone Forms: My [facility] Prescriptions Prescriptions: No Action fluoxetine 40 mg capsule 40 mg PO DAILY RF: 0 bupropion HCl 100 mg tablet 100 mg PO TID RF: 0 dicyclomine 10 mg capsule 10 mg PO TID RF: 0 pantoprazole 40 mg tablet,delayed release (DR/EC) 40 mg PO HS RF: 0 acetaminophen 325 mg capsule 650 mg PO TID PRN (Reason: fever or pain) Qty: 30 RF: 0 fish jam-xtiwa-6-vit C-vit E 2,000-650-12 mg/2.5 gram Emulsion In Packet 2.5 g PO DAILY RF: 0 azelastine 137 mcg (0.1 %) aerosol,spray 2 spray INTRANASAL BID RF: 0 albuterol sulfate 90 mcg/actuation HFA aerosol inhaler 2 puff INHALATION QID RF: 0 Humira(CF) Pen 40 mg/0.4 mL pen injector kit 40 mg SUBCUT UD RF: 0 lorazepam 0.5 mg Tablet 0.5 mg PO TID RF: 0 Discharge Problem: Abdominal pain Qualifiers: Abdominal location: generalized Qualified Code(s): R10.84 - Generalized abdominal pain Crohn's disease Qualifiers: Gastrointestinal tract location: unspecified location Digestive disease complication type: with rectal bleeding Qualified Code(s): K50.911 - Crohn's disease, unspecified, with rectal bleeding
[2020-08-18 18:52] LABS: Basophils # (auto) 0.03 K/uL (0-0.2); Basophils % (auto) 0.3 %; Eosinophils # (auto) 0.08 K/uL (0-0.5); Eosinophils % (auto) 0.9 %; Hematocrit (blood only) 40.1 % (37-47); Hemoglobin 13.2 g/dL (12.0-16.0); Immature Granulocytes # (auto) 0.02 K/uL (0.00-0.02); Immature Granulocytes % (auto) 0.2 %; Lymphocytes # (auto) 2.35 K/uL (1.2-3.4); Lymphocytes % (auto) 25.3 %; Mean Corpuscular Hemoglobin 30.4 pg (25-34); Mean Corpuscular Hgb Conc 32.9 g/dL (32-36); Mean Corpuscular Volume 92.4 fL (80-100); Mean Platelet Volume 9.2 fL (7.4-10.4); Monocytes # (auto) 0.53 K/uL (0.11-0.59); Monocytes % (auto) 5.7 %; Neutrophils # (auto) 6.28 K/uL (1.4-6.5); Neutrophils % (auto) 67.6 %; Platelet Count 364 K/uL (130-400); RDW Coefficient of Variation 13.4 % (11.5-14.5); RDW Standard Deviation 45.5 fL (36.4-46.3); Red Blood Count 4.34 M/uL (4.2-5.4); White Blood Count 9.29 K/uL (4.8-10.8)
[2020-08-18 19:29] LABS: Albumin Level 3.4 gm/dl (3.4-5.0); BUN Creatinine Ratio 9.8 (10-20); Calcium 8.7 mg/dl (8.5-10.1); Creatinine Clr Calc Pharmacy 110.6 ml/min; Est GFR (African American) 120.1; Est GFR (Non-African American) 103.7
[2020-08-18 19:32] LABS: Albumin Globulin Ratio 0.9 (0.9-2); Bilirubin,Total 0.3 mg/dl (0.2-1); Total Protein 7.4 gm/dl (6.4-8.2)
[2020-08-18 19:33] LABS: Appearance Urine Clear (Clear); Bacteria Urine Automated Negative (Negative); Bilirubin Urine Negative (Negative); Blood Urine 2+ (Negative); Cast Urine Automated 0 /lpf (0-5); Color Urine Yellow; Glucose Urine UA Negative (Negative); Ketones Urine Negative (Negative); Leukocyte Esterase Urine Negative (Negative); Nitrite Urine Negative (Negative); Protein Urine Negative (Negative); Specific Gravity Urine 1.012 (1.000-1.030); Urobilinogen Urine Negative (Negative)
[2020-08-18] MEDS ORDERED: IOVERSOL 100ml IV ONE (20:53)
[2020-08-18] MEDS ORDERED: MAGNESIUM SULFATE / D5W 1 GM/100 ML BAG IV STA (21:14)
[2020-08-18] MEDS ORDERED: HYDROmorphone INJ 0.5 MG/0.5 ML SYR IV STA (21:36)
--- NOTE | 2020-08-19 01:03 | History and Physical Report ---
DATE OF ADMISSION: 08/18/2020 CHIEF COMPLAINT: Abdominal pain and blood in the stool. HISTORY OF PRESENT ILLNESS: This is a 45-year-old female with past medical history significant for Crohn's disease, multiple surgeries for Crohn's disease, history of large intestine enteritis, chronic maxillary sinusitis, secondary amenorrhea, tobacco use disorder, depression, status post intestinal anastomosis, who was recently in the hospital for the small-bowel obstruction, which resolved with conservative management and also started on IV Solu-Medrol by GI with prednisone taper, who comes in because of abdominal pain and blood in the stool since yesterday. The patient says she is back on Humira; she took it about 15 days ago. Since yesterday, she is having lot of blood in the stools and she had 6 episodes of diarrhea and abdominal pain. In the ER, she received Dilaudid and currently pain is under control. She also had severe nausea, she received a dose of Zofran. When she came from the CAT scan with contrast of abdomen and pelvis, she became dizzy, lightheaded, warm, and not feeling good and she looked pale per the ER physician, but this subsequently improved. Her EKG showed QTc of 530. Currently resting comfortably and hemodynamically stable. She says she had many CAT scans in the past and never had this reaction. She had runny nose and cough for a week and that resolved about 3-4 days ago. Denies any fever. No shortness of breath, no chest pain, no loss of sense of smell or taste. Appetite is down since last couple of weeks. No headache, no blurred visions, no earache, no runny nose, no sore throat, no dysphagia, no odynophagia. Abdominal pain is currently 4/10 in severity. Normal bladder movements. No rash. Currently resting comfortably and hemodynamically stable. The patient lives with a roommate and she is not exposed to any COVID patients. ALLERGIES: No known drug allergies. PAST MEDICAL HISTORY: As mentioned above. PAST SURGICAL HISTORY: Colonoscopy with biopsy, multiple colonoscopies, EGDs, inferior turbinate ablation, laparoscopic colectomy partial with anastomosis, nasal septum cartilage for graft, reconstruction of nose, tonsillectomy, repair of bowel opening with fusion, repair of nasal septum. MEDICATIONS: Currently the patient is on Tylenol 650 mg p.o. t.i.d. p.r.n., Humira subcutaneous every 14 days, albuterol 2 puffs inhalation q.i.d., azelastine 2 sprays intranasal b.i.d., bupropion 100 mg p.o. t.i.d., dicyclomine 10 mg p.o. t.i.d., fish oil 2.5 g p.o. daily, fluoxetine 40 mg p.o. daily, Ativan 0.5 mg p.o. t.i.d., Protonix 40 mg p.o. at bedtime. FAMILY HISTORY: Significant for father had allergies, asthma, stroke; mother had arthritis, diverticulitis, heart disorder; sister has arthritis, diabetes, Crohn's. SOCIAL HISTORY: Single, smokes half pack a day for 20 years. Alcohol once a month. No drug use. REVIEW OF SYSTEMS: As per HPI. Rest of the review of systems are negative. PHYSICAL EXAMINATION: GENERAL: The patient is of moderate build, not in acute distress. VITAL SIGNS: Temperature 37.2, pulse 77, respiratory rate 16, blood pressure 139/83, and oxygen 95% on room air. HEENT: Pupils equal, round, reactive to light. Oral mucosa moist. NECK: No neck masses seen. CARDIOVASCULAR: S1, S2 heard. Regular rate and rhythm, no murmur, no gallop. RESPIRATORY SYSTEM: Normal AP diameter. No accessory muscle use. No wheezing, no crackles. ABDOMEN: Soft, bowel sounds present. Mild abdominal discomfort. Mild guarding, no rigidity. No distention. CENTRAL NERVOUS SYSTEM: Cranial nerves II-XII grossly intact, nonfocal. EXTREMITIES: No edema, no erythema. LABORATORY DATA: WBC 9.2, hemoglobin 13.2, hematocrit 40.1, platelets 364. Sodium 140, potassium 3, chloride 106, bicarbonate 30, BUN 7, creatinine 0.69, serum glucose 85, calcium 8.7, magnesium 2, total bilirubin 0.3, AST 19, ALT 16, alkaline phosphatase 66, lipase 88. Urinalysis, +2 blood. SARS-CoV-2 RNA negative. IMAGING DATA: CT of abdomen and pelvis, preliminary report shows right hemicolectomy similar to previous. There is diffuse wall thickening and inflammation involving the remaining left transverse colon, left sigmoid colon, as well as rectum indicating colitis, possibly Crohn's disease, this is new. There are gas fluid levels within the colon consistent with ileus. No obstruction, perforation, or abscess is seen. A 1.8 cm calcified gallstones in the gallbladder without pericholecystic inflammation or biliary duct dilatation. The liver, gallbladder, spleen, pancreas, and kidneys are unremarkable. The urinary bladder is partially distended and unremarkable. Skeletal structures appear within normal limits. EKG: Shows normal sinus rhythm at a rate of 73. Prolonged QTC at 533. ASSESSMENT AND PLAN: This is a 45-year-old female who presents with abdominal pain and blood in the stools. 1. Crohn's flare: The patient again restarted on Humira recently, but having the flare now. We will place her on IV Solu-Medrol 20 t.i.d. Keep her n.p.o., IV fluids, IV pain medications, and consult GI in the a.m. for further recommendations. 2. Ileus On ct scan. Will replace potassium.Currently npo, iv fluids, will monitor. 3. Prolonged QT: The patient is on bupropion and fluoxetine, which we will hold. Will replace potassium. We will follow the repeat EKG in the a.m. Will avoid QT prolonging drugs. 4. Depression and anxiety: Holding bupropion and Prozac as above. Continue Ativan. 5. Gastroesophageal reflux disease: Continue Protonix. 6. Deep venous thrombosis prophylaxis: Sequential compression devices for now. 7. Disposition: Closely monitor in the med [facility] [place]. Level 1 full code. Expect to discharge home and follow with family doctor. LUIS
[2020-08-19] MEDS ORDERED: LORazepam 0.25 MG/0.5 ML VIAL IV STA (02:06)
[2020-08-19] MEDS ORDERED: POTASSIUM CHLORIDE CRTAB 20 MEQ TABCR PO STA (02:06)
[2020-08-19] MEDS ORDERED: NITROGLYCERIN SL 0.4 MG/TAB TAB SL PRN (02:06)
[2020-08-19] MEDS: D5NSS + 20MEQ KCL 20 MEQ/1,000 ML BAG IV SCH ×3 (02:33→17:36)
[2020-08-19] MEDS: HYDROmorphone INJ 0.5 MG/0.5 ML SYR IV PRN ×2 (02:34→06:30)
[2020-08-19] MEDS: methylPREDNISolone 20 MG in SYRINGE 0 ML IV SCH ×4 (02:34→20:28)
[2020-08-19 06:52] LABS: Basophils # (auto) 0.02 K/uL (0-0.2); Basophils % (auto) 0.3 %; Eosinophils # (auto) 0.01 K/uL (0-0.5); Eosinophils % (auto) 0.1 %; Hematocrit (blood only) 40.3 % (37-47); Hemoglobin 13.5 g/dL (12.0-16.0); Immature Granulocytes # (auto) 0.03 K/uL (0.00-0.02); Immature Granulocytes % (auto) 0.4 %; Lymphocytes # (auto) 1.03 K/uL (1.2-3.4); Mean Corpuscular Hgb Conc 33.5 g/dL (32-36); Mean Corpuscular Volume 92.4 fL (80-100); Monocytes # (auto) 0.11 K/uL (0.11-0.59); Monocytes % (auto) 1.4 %; Neutrophils # (auto) 6.71 K/uL (1.4-6.5); Neutrophils % (auto) 84.8 %; Platelet Count 368 K/uL (130-400); RDW Coefficient of Variation 13.7 % (11.5-14.5); RDW Standard Deviation 46.6 fL (36.4-46.3); Red Blood Count 4.36 M/uL (4.2-5.4); White Blood Count 7.91 K/uL (4.8-10.8)
[2020-08-19 07:24] LABS: BUN Creatinine Ratio 3.8 (10-20); Calcium 8.3 mg/dl (8.5-10.1); Creatinine Clr Calc Pharmacy 97.8 ml/min; Est GFR (African American) 113.7; Est GFR (Non-African American) 98.1; Magnesium 2.6 mg/dl (1.8-2.4); Potassium 3.9 mmol/L (3.5-5.1)
[2020-08-19] MEDS: ALBUTEROL HFA 8 GM INHALER INH SCH ×4 (07:33→19:59)
--- NOTE | 2020-08-19 07:55 | CT Scan Report ---
ABDOMEN AND PELVIS CT WITH IV CONTRAST CT DOSE: 450.31 mGy.cm HISTORY: Generalized abd pain, crohns. postmenopausal TECHNIQUE: Multiaxial CT images of the abdomen and pelvis were performed following the use of intrave nous contrast. A dose lowering technique was utilized adhering to the principles of ALARA. COMPARISON STUDY: Abdomen and pelvis CT 04/27/2020. FINDINGS: Postoperative changes consistent with prior right hemicolectomy. There is mild to moderate wall thickening involving the remaining colon and rectum. There is also bowel wall thickening at the ileocolonic anastomosis. Findings likely represent acute on chronic inflammatory bowel disease. No fi stula or abscess identified at this time. No dilated loops of small bowel to suggest an obstruction. The bladder, uterus, bilateral adnexa are within normal limits. No retroperitoneal lymphadenopathy. N ormal caliber abdominal aorta. Patchy ground glass densities within the lungs posteriorly. No pneumop eritoneum. No pneumatosis. No suspicious lytic or blastic osseous lesions. The liver, spleen, adrenal glands, pancreas, and kidneys are within normal limits. No hydronephrosis. No retroperitoneal lympha denopathy. There are few gallstones. No gallbladder wall thickening. IMPRESSION: 1. Prior right hemicolectomy with diffuse wall thickening and inflammatory change involving the remai evangelina colon, rectum, and ileocolic anastomosis. Findings are consistent with acute or chronic inflamma tory bowel disease. 2. Cholelithiasis. ACT 112: Negative or not required by law. Electronically signed by: Jorge Smith M.D. 08/19/2020 7:54 AM
--- NOTE | 2020-08-19 08:05 | Hospitalist Progress Note ---
Date of Service August 19, 2020 Assessment & Plan Admission and Anticipated Discharge Date Admission Date: August 18, 2020 Subjective addendum h and p: Presyncope: after ct scan. Vasovagal? will monitor on tele. will monitor electrolytes. Results & Data Results & Data ([facility]) Vital Signs (Past 12 Hours) Vital Signs Temp Pulse Pulse Resp BP BP BP 08/19/20 07:34 72 16 08/19/20 06:59 36.8 C 72 20 127/76 08/19/20 02:55 147/84 H 08/19/20 01:50 36.7 C 73 18 166/91 H 08/19/20 01:29 65 16 140/80 08/18/20 23:00 77 16 139/83 08/18/20 22:30 72 24 134/80 08/18/20 22:00 72 14 145/85 H 08/18/20 21:30 74 17 138/85 08/18/20 21:00 75 31 H 143/89 H 08/18/20 20:57 82 159/84 H Pulse Ox 08/19/20 07:34 93 08/19/20 06:59 93 08/19/20 02:55 08/19/20 01:50 95 08/19/20 01:29 95 08/18/20 23:00 95 08/18/20 22:30 92 08/18/20 22:00 96 08/18/20 21:30 94 08/18/20 21:00 98 08/18/20 20:57 97
[2020-08-19] MEDS: LORazepam 0.5 MG TAB PO SCH ×2 (08:22→14:05)
[2020-08-19] MEDS: ACETAMINOPHEN 325 MG TAB PO PRN (08:22)
--- NOTE | 2020-08-19 10:09 | Gastrointestinal Consultation ---
Date of Consultation August 19, 2020 Assessment & Plan (1) Abdominal pain: 45 year old female history of IBD, prior issues with med compliance admitting with pain, bloody diarrhea, CT w/ diffuse wall thickening and inflammatory change involving the remaining colon, rectum, and ileocolic an astomosis. Check CRP/ESR Check stool studies Plan for colonoscopy tomorrow If stools negative IV steroids Analgesia PRN Bentyl PRN Attg add: I interviewed and examined pt, reviewed chart and labs. Pt with h/o Crohn's disease s/p remote resection currently on Humira; also with IBS characterized by chronic abd pain and diarrhea, now admit with 2-3 days h/o bloody diarrhea, increasing abdominal pain. Rec IV steroids, C diff, cscopy tomorrow. History of Present Illness Reason for Consultation: IBD Requesting Physician: Halley Attending Physician: Dylan Ambrose MD History of Present Illness 44 y/o female with PMHx Crohn's (was on Humira but was DC'd due to rash, possible Lyme), recently admitted with SBO presenting through ED w/ abd pain, bloody diarrhea x 1 months. Notes she is taking Humira as ordered, due for this on 08/23. CT on arrival Prior right hemicolectomy with diffuse wall thickening and inflammatory change involving the remaining colon, rectum, and ileocolic anastomosis - acute or chronic inflammatory bowel disease. Since admission, made NPO on IV analgesia. No further BM or bleeding since admission. Pain persists. Allergies Allergy/AdvReac Type Severity Reaction Status Date / Time No Known Allergies Allergy Verified 04/27/20 03:21 Home Medications Medication Instructions Recorded Confirmed Type lorazepam 0.5 mg PO TID 04/20/19 08/18/20 History bupropion HCl 100 mg PO TID 04/27/20 08/18/20 History dicyclomine 10 mg PO TID 04/27/20 08/18/20 History fluoxetine 40 mg PO DAILY 04/27/20 08/18/20 History pantoprazole 40 mg PO HS 04/27/20 08/18/20 History acetaminophen 650 mg PO TID PRN #30 cap 04/30/20 08/18/20 Rx adalimumab [Humira(CF) Pen] 40 mg SUBCUT UD 08/18/20 08/18/20 History albuterol sulfate 2 puff INHALATION QID 08/18/20 08/18/20 History azelastine 2 spray INTRANASAL BID 08/18/20 08/18/20 History fish xar-bdrxk-6-vit C-vit E 2.5 g PO DAILY 08/18/20 08/18/20 History Patient History Medical History Abnormal CT scan, chest Acute hypoxemic respiratory failure Chronic maxillary sinusitis Crohn's disease Depression with anxiety History of Clostridioides difficile colitis History of deviated nasal septum History of erythema nodosum History of uveitis Tobacco abuse Surgical History History of colectomy History of colonoscopy Last 07/2019 History of rhinoplasty Multiple nasal surgeries x3 Family History Father Heart disease TIA (transient ischemic attack) Mother Heart disease FH: diverticulitis Sister Crohn's disease Diabetes Social History Smoking Status: Current every day smoker Tobacco Type: Cigarettes Years Smoked: 35; Cigarettes Per Day: 10; Second Hand Exposure: No; Do You Dip or Chew Tobacco: No; Hx Alcohol Use: Yes Alcohol type: wine Alcohol type Comment: Once a month Hx Substance Use: No Preferred Language: Turkish Communication Ability: Effective Group Social Worker Required: No Beliefs That Will Affect Care: None marital status: Single Current Living Situation: Other Other Information That Helps Us Care for You: No Feels Safe at Home: Yes Safety Concerns: Feels Safe At This Time Assistive Devices: None Review of Systems Constitutional: no fever, no chills and no fatigue Respiratory: no cough and no dyspnea Cardiovascular: no chest pain and no dyspnea Gastrointestinal: + abdominal pain and + blood in stools; no melena Physical Exam Constitutional: no acute distress Neck: trachea midline; no tracheal deviation Respiratory: normal respiratory effort Cardiovascular: RRR, no murmur, no edema Gastrointestinal (Abdomen): Inspection/Auscultation: normal bowel sounds Percussion/Palpation: abdomen soft; abdomen nontender, no guarding and abdomen not rigid Skin: no rashes, warm and dry Results & Data ([facility]) Vital Signs (Past 12 Hours) Vital Signs Temp Pulse Pulse Resp BP BP BP 08/19/20 07:34 72 16 08/19/20 06:59 36.8 C 72 20 127/76 08/19/20 02:55 147/84 H 08/19/20 01:50 36.7 C 73 18 166/91 H 08/19/20 01:29 65 16 140/80 08/18/20 23:00 77 16 139/83 08/18/20 22:30 72 24 134/80 Pulse Ox 08/19/20 07:34 93 08/19/20 06:59 93 08/19/20 02:55 08/19/20 01:50 95 08/19/20 01:29 95 08/18/20 23:00 95 08/18/20 22:30 92 Laboratory Results 08/19/20 08/19/20 08/18/20 Range/Units 06:21 06:21 19:20 WBC 7.91 (4.8-10.8) K/uL RBC 4.36 (4.2-5.4) M/uL Hgb 13.5 (12.0-16.0) g/dL Hct 40.3 (37-47) % MCV 92.4 (80-100) fL MCH 31.0 (25-34) pg MCHC 33.5 (32-36) g/dL RDW Std Deviation 46.6 H (36.4-46.3) fL RDW Coeff of Samia 13.7 (11.5-14.5) % Plt Count 368 (130-400) K/uL MPV 9.0 (7.4-10.4) fL Immature Gran % (Auto) 0.4 % Neut % (Auto) 84.8 % Lymph % (Auto) 13.0 % [place] % (Auto) 1.4 % Eos % (Auto) 0.1 % Baso % (Auto) 0.3 % Neut # (Auto) 6.71 H (1.4-6.5) K/uL Lymph # (Auto) 1.03 L (1.2-3.4) K/uL [place] # (Auto) 0.11 (0.11-0.59) K/uL Eos # (Auto) 0.01 (0-0.5) K/uL Baso # (Auto) 0.02 (0-0.2) K/uL Immature Gran # (Auto) 0.03 H (0.00-0.02) K/uL Sodium 141 (136-145) mmol/L Potassium 3.9 D (3.5-5.1) mmol/L Chloride 109 H (98-107) mmol/L Carbon Dioxide 29 (21-32) mmol/L Anion Gap 3.0 (3-11) BUN 3 L (7-18) mg/dl Creatinine 0.73 (0.6-1.2) mg/dl Est Cr Clr Drug Dosing 97.8 ml/min Est GFR ( Amer) 113.7 Est GFR (Non-Af Amer) 98.1 BUN/Creatinine Ratio 3.8 L (10-20) Glucose 115 H (70-99) mg/dl Calcium 8.3 L (8.5-10.1) mg/dl Magnesium 2.6 H (1.8-2.4) mg/dl Total Bilirubin (0.2-1) mg/dl AST (15-37) U/L ALT (12-78) U/L Alkaline Phosphatase (45-117) U/L Total Protein (6.4-8.2) gm/dl Albumin (3.4-5.0) gm/dl Globulin (2.5-4.0) gm/dl Albumin/Globulin Ratio (0.9-2) Lipase (73-393) U/L Urine Color Yellow Urine Appearance Clear (Clear) Urine pH 7.0 (4.5-7.5) Ur Specific [place] 1.012 (1.000-1.030) Urine Protein Negative (Negative) Urine Glucose (UA) Negative (Negative) Urine Ketones Negative (Negative) Urine Blood 2+ H (Negative) Urine Nitrite Negative (Negative) Urine Bilirubin Negative (Negative) Urine Urobilinogen Negative (Negative) Ur Leukocyte Esterase Negative (Negative) Urine WBC (Auto) 1-5 (0-5) /hpf Urine RBC (Auto) 5-10 H (0-4) /hpf U Hyaline Cast (Auto) 0 (0-5) /lpf U Epithel Cells (Auto) 5-10 H (0-5) /lpf Urine Bacteria (Auto) Negative (Negative) COVID-19 Eval Order SARS-CoV-2, RNA, NAAT (NEGATIVE) 08/18/20 08/18/20 08/18/20 Range/Units 18:37 18:37 18:37 WBC (4.8-10.8) K/uL RBC (4.2-5.4) M/uL Hgb (12.0-16.0) g/dL Hct (37-47) % MCV (80-100) fL MCH (25-34) pg MCHC (32-36) g/dL RDW Std Deviation (36.4-46.3) fL RDW Coeff of Samia (11.5-14.5) % Plt Count (130-400) K/uL MPV (7.4-10.4) fL Immature Gran % (Auto) % Neut % (Auto) % Lymph % (Auto) % [place] % (Auto) % Eos % (Auto) % Baso % (Auto) % Neut # (Auto) (1.4-6.5) K/uL Lymph # (Auto) (1.2-3.4) K/uL [place] # (Auto) (0.11-0.59) K/uL Eos # (Auto) (0-0.5) K/uL Baso # (Auto) (0-0.2) K/uL Immature Gran # (Auto) (0.00-0.02) K/uL Sodium (136-145) mmol/L Potassium (3.5-5.1) mmol/L Chloride (98-107) mmol/L Carbon Dioxide (21-32) mmol/L Anion Gap (3-11) BUN (7-18) mg/dl Creatinine (0.6-1.2) mg/dl Est Cr Clr Drug Dosing ml/min Est GFR ( Amer) Est GFR (Non-Af Amer) BUN/Creatinine Ratio (10-20) Glucose (70-99) mg/dl Calcium (8.5-10.1) mg/dl Magnesium 2.0 (1.8-2.4) mg/dl Total Bilirubin (0.2-1) mg/dl AST (15-37) U/L ALT (12-78) U/L Alkaline Phosphatase (45-117) U/L Total Protein (6.4-8.2) gm/dl Albumin (3.4-5.0) gm/dl Globulin (2.5-4.0) gm/dl Albumin/Globulin Ratio (0.9-2) Lipase (73-393) U/L Urine Color Urine Appearance (Clear) Urine pH (4.5-7.5) Ur Specific [place] (1.000-1.030) Urine Protein (Negative) Urine Glucose (UA) (Negative) Urine Ketones (Negative) Urine Blood (Negative) Urine Nitrite (Negative) Urine Bilirubin (Negative) Urine Urobilinogen (Negative) Ur Leukocyte Esterase (Negative) Urine WBC (Auto) (0-5) /hpf Urine RBC (Auto) (0-4) /hpf U Hyaline Cast (Auto) (0-5) /lpf U Epithel Cells (Auto) (0-5) /lpf Urine Bacteria (Auto) (Negative) COVID-19 Eval Order Covid19 [facility] SARS-CoV-2, RNA, NAAT NEGATIVE (NEGATIVE) 08/18/20 08/18/20 Range/Units 18:37 18:37 WBC 9.29 (4.8-10.8) K/uL RBC 4.34 (4.2-5.4) M/uL Hgb 13.2 (12.0-16.0) g/dL Hct 40.1 (37-47) % MCV 92.4 (80-100) fL MCH 30.4 (25-34) pg MCHC 32.9 (32-36) g/dL RDW Std Deviation 45.5 (36.4-46.3) fL RDW Coeff of Samia 13.4 (11.5-14.5) % Plt Count 364 (130-400) K/uL MPV 9.2 (7.4-10.4) fL Immature Gran % (Auto) 0.2 % Neut % (Auto) 67.6 % Lymph % (Auto) 25.3 % [place] % (Auto) 5.7 % Eos % (Auto) 0.9 % Baso % (Auto) 0.3 % Neut # (Auto) 6.28 (1.4-6.5) K/uL Lymph # (Auto) 2.35 (1.2-3.4) K/uL [place] # (Auto) 0.53 (0.11-0.59) K/uL Eos # (Auto) 0.08 (0-0.5) K/uL Baso # (Auto) 0.03 (0-0.2) K/uL Immature Gran # (Auto) 0.02 (0.00-0.02) K/uL Sodium 142 (136-145) mmol/L Potassium 3.0 L (3.5-5.1) mmol/L Chloride 106 (98-107) mmol/L Carbon Dioxide 30 (21-32) mmol/L Anion Gap 6.0 (3-11) BUN 7 (7-18) mg/dl Creatinine 0.69 (0.6-1.2) mg/dl Est Cr Clr Drug Dosing 110.6 ml/min Est GFR ( Amer) 120.1 Est GFR (Non-Af Amer) 103.7 BUN/Creatinine Ratio 9.8 L (10-20) Glucose 85 (70-99) mg/dl Calcium 8.7 (8.5-10.1) mg/dl Magnesium (1.8-2.4) mg/dl Total Bilirubin 0.3 (0.2-1) mg/dl AST 19 (15-37) U/L ALT 16 (12-78) U/L Alkaline Phosphatase 66 (45-117) U/L Total Protein 7.4 (6.4-8.2) gm/dl Albumin 3.4 (3.4-5.0) gm/dl Globulin 4.0 (2.5-4.0) gm/dl Albumin/Globulin Ratio 0.9 (0.9-2) Lipase 88 (73-393) U/L Urine Color Urine Appearance (Clear) Urine pH (4.5-7.5) Ur Specific [place] (1.000-1.030) Urine Protein (Negative) Urine Glucose (UA) (Negative) Urine Ketones (Negative) Urine Blood (Negative) Urine Nitrite (Negative) Urine Bilirubin (Negative) Urine Urobilinogen (Negative) Ur Leukocyte Esterase (Negative) Urine WBC (Auto) (0-5) /hpf Urine RBC (Auto) (0-4) /hpf U Hyaline Cast (Auto) (0-5) /lpf U Epithel Cells (Auto) (0-5) /lpf Urine Bacteria (Auto) (Negative) COVID-19 Eval Order SARS-CoV-2, RNA, NAAT (NEGATIVE) (1) Abdominal pain Abdominal location: generalized Qualified Code(s): R10.84 - Generalized abdominal pain
[2020-08-19] MEDS ORDERED: LAVAGE SOLUTION 4000ML PO SCH ×2 (16:30)
--- NOTE | 2020-08-19 18:28 | Electrocardiogram Report ---
Test Reason : Blood Pressure : / mmHG Vent. Rate : 073 BPM Atrial Rate : 073 BPM P-R Int : 140 ms QRS Dur : 100 ms QT Int : 460 ms P-R-T Axes : 058 029 052 degrees QTc Int : 507 ms Poor data quality, interpretation may be adversely affected Normal sinus rhythm Prolonged QT Abnormal ECG When compared with ECG of 22-FEB-2020 17:08, Nonspecific T wave abnormality now evident in Anterior leads QT has lengthened Confirmed by Leonid Perez ([id number]) on 08/19/2020 6:28:23 PM Referred By: REFERRED SELF Confirmed By:Zak Perez
--- NOTE | 2020-08-19 18:31 | Electrocardiogram Report ---
Test Reason : Blood Pressure : / mmHG Vent. Rate : 070 BPM Atrial Rate : 070 BPM P-R Int : 144 ms QRS Dur : 092 ms QT Int : 452 ms P-R-T Axes : 062 025 060 degrees QTc Int : 488 ms Normal sinus rhythm Prolonged QT Abnormal ECG When compared with ECG of 18-AUG-2020 21:01, (unconfirmed) No significant change was found Confirmed by Leonid Perez ([id number]) on 08/19/2020 6:30:22 PM Referred By: REFERRED SELF Confirmed By:Zak Perez
[2020-08-19] MEDS: HYDROmorphone INJ 1 MG/ML SYRINGE IV PRN ×2 (19:27→23:38)
[2020-08-19] MEDS ORDERED: PROMETHAZINE HCL 12.5 MG in SODIUM CHLORIDE 0.9% 50 ML IV STA (19:44)
[2020-08-19] MEDS: PANTOprazole 40 MG TAB PO SCH (20:28)
--- NOTE | 2020-08-19 21:10 | Hospitalist Progress Note ---
Date of Service August 19, 2020 Assessment & Plan (1) Abdominal pain: Probable flare of Crohn's disease. GI consulted. Titrate analgesics. (2) Hypokalemia: Serum K 3.0 at time of admission. IV replacement. K today = 3.9. (3) Lab test negative for COVID-19 virus: SARS-CoV-2 PCR negative 08/18. (4) Prolonged QT interval: Maintain normal serum electrolytes. Avoid QT prolonging drugs whenever possible. (5) DVT prophylaxis: No anticoagulants because of GI bleed. SCD's. Ambulate. (6) Discharge planning issues: Anticipated discharge to home. Family Medicine follow-up with Dr. Correa. Admission and Anticipated Discharge Date Admission Date: August 18, 2020 Subjective Recheck for abdominal pain. Patient seen in their room around 1140. Admitted yesterday with apparent flare of Crohn's disease- abdominal pain and bloody stools. Persistent abdominal pain, L > R; current analgesic regimen not effective. Nausea, no emesis. No loose stools or hematochezia this morning. Review of Systems: Constitutional- no fever. Cardiac- no chest pain. Pulmonary- no cough or SOB. GI- as noted above. - no urinary symptoms. Otherwise, as noted above. Physical Exam Constitutional: no acute distress Eyes: + anicteric sclerae Respiratory: normal respiratory effort, lungs clear to auscultation Cardiovascular: Rate/Rhythm: regular rate and regular rhythm Vessels: no JVD Extremities: no calf tenderness and no edema Gastrointestinal (Abdomen): Inspection/Auscultation: + abdomen distended Percussion/Palpation: + abdomen tender (diffuse tenderness without rebound) and abdomen soft Musculoskeletal: Extremities: no cyanosis Skin: no rashes, warm and dry Psychiatric: Orientation: alert and oriented x 3 Results & Data Results & Data ([facility]) Vital Signs (Past 12 Hours) Vital Signs Temp Pulse Resp BP BP Pulse Ox 08/19/20 20:11 36.7 C 84 18 123/75 91 08/19/20 19:59 84 18 91 08/19/20 15:21 36.6 C 89 20 112/62 90 08/19/20 14:51 64 16 93 08/19/20 11:16 72 16 92 08/19/20 10:52 36.7 C 77 20 99/54 L 93 Laboratory Results 08/19/20 06:21 08/19/20 06:21 (1) Abdominal pain Abdominal location: generalized Qualified Code(s): R10.84 - Generalized abdominal pain
[2020-08-20] MEDS: LORazepam 0.5 MG TAB PO SCH ×4 (00:14→20:36)
[2020-08-20] MEDS: D5NSS + 20MEQ KCL 20 MEQ/1,000 ML BAG IV SCH ×2 (03:28→16:35)
[2020-08-20] MEDS: HYDROmorphone INJ 1 MG/ML SYRINGE IV PRN ×4 (03:36→15:16)
[2020-08-20 07:55] LABS: Hematocrit (blood only) 37.8 % (37-47); Hemoglobin 12.2 g/dL (12.0-16.0); Mean Corpuscular Hemoglobin 30.7 pg (25-34); Mean Corpuscular Hgb Conc 32.3 g/dL (32-36); Mean Corpuscular Volume 95.2 fL (80-100); Mean Platelet Volume 9.5 fL (7.4-10.4); Platelet Count 351 K/uL (130-400); RDW Coefficient of Variation 14.2 % (11.5-14.5); RDW Standard Deviation 49.3 fL (36.4-46.3); Red Blood Count 3.97 M/uL (4.2-5.4); White Blood Count 14.29 K/uL (4.8-10.8)
[2020-08-20] MEDS: ALBUTEROL HFA 8 GM INHALER INH SCH ×4 (07:55→19:58)
--- NOTE | 2020-08-20 08:08 | Anesthesiology Consultation ---
Date of Service August 20, 2020 History Surgery Operation Date: 08/20/20 17:00 Proposed Procedures p Colonoscopy Dr Rowley - Cheryl Rowley MD Height/Weight Height: 5 ft 8.5 in Weight: 76.5 kg Allergies Allergy/AdvReac Type Severity Reaction Status Date / Time No Known Allergies Allergy Verified 04/27/20 03:21 Medications Home Medications Medication Instructions Recorded Confirmed Last Taken lorazepam 0.5 mg PO TID 04/20/19 08/18/20 08/17/20 bupropion HCl 100 mg PO TID 04/27/20 08/18/20 08/17/20 dicyclomine 10 mg PO TID 04/27/20 08/18/20 08/17/20 fluoxetine 40 mg PO DAILY 04/27/20 08/18/20 08/17/20 pantoprazole 40 mg PO HS 04/27/20 08/18/20 08/17/20 acetaminophen 650 mg PO TID PRN #30 cap 04/30/20 08/18/20 08/17/20 adalimumab [Humira(CF) Pen] 40 mg SUBCUT UD 08/18/20 08/18/20 08/17/20 albuterol sulfate 2 puff INHALATION QID 08/18/20 08/18/20 08/17/20 azelastine 2 spray INTRANASAL BID 08/18/20 08/18/20 08/17/20 fish vfx-rgfoe-4-vit C-vit E 2.5 g PO DAILY 08/18/20 08/18/20 08/17/20 Active Medications Generic Name Dose Route Start Last Admin Trade Name Freq PRN Reason Stop Dose Admin Acetaminophen 650 mg 08/19/20 02:06 08/19/20 08:22 Acetaminophen 325 Mg Tab PO 09/18/20 02:05 650 mg Q4H PRN Administration Pain or Fever Albuterol 2 puffs 08/19/20 07:00 08/20/20 07:55 Albuterol Hfa 8 Gm Inhaler INH 09/18/20 06:59 2 puffs QIDR DENILSON Administration Hydromorphone HCl 1 mg 08/19/20 12:48 08/20/20 05:59 Hydromorphone Inj 1 Mg/Ml Syringe IV 09/02/20 12:47 1 mg Q2H PRN Administration severe pain Potassium Chloride/Dextrose/Sod Cl 20 meq in 1,000 mls @ 125 mls/hr 08/19/20 02:06 08/20/20 03:28 D5nss + 20meq Kcl IV 09/18/20 02:05 125 mls/hr .Q8H DENILSON Administration Methylprednisolone 20 mg/ 0.32 mls @ 1.5 mls/min 08/19/20 02:15 08/19/20 20:28 Syringe IV 09/18/20 02:14 1.5 mls/min TID DENILSON Administration Lorazepam 0.5 mg 08/19/20 09:00 08/20/20 00:14 Lorazepam 0.5 Mg Tab PO 09/18/20 08:59 0.5 mg TID DENILSON Administration Pantoprazole Sodium 40 mg 08/19/20 21:00 08/19/20 20:28 Pantoprazole 40 Mg Tab PO 09/18/20 20:59 40 mg HS DENILSON Administration Past Medical History Medical History Abnormal CT scan, chest Acute hypoxemic respiratory failure Cholelithiasis Chronic maxillary sinusitis Crohn's disease Depression with anxiety History of Clostridioides difficile colitis History of deviated nasal septum History of erythema nodosum History of uveitis Prolonged QT interval Tobacco abuse Past Family History Family History Father Heart disease TIA (transient ischemic attack) Mother Heart disease FH: diverticulitis Sister Crohn's disease Diabetes Past Surgical History Surgical History History of colectomy History of colonoscopy Last 07/2019 History of rhinoplasty Multiple nasal surgeries x3 Social History Smoking Status: Current every day smoker tobacco type: cigarettes Smoking cigarettes per day: 10 Do You Dip or Chew Tobacco: No Hx Alcohol Use: Yes Alcohol type: wine alcohol intake frequency: holidays/special occasions only Hx Substance Use: No substance use type: does not use Last Used Substance Other:: 3 to 4 weeks ago Physical Exam Vital Signs Last Vital Signs Temp 36.6 C 08/20/20 03:48 Pulse 73 08/20/20 07:55 Resp 16 08/20/20 07:55 BP 120/66 08/20/20 03:48 Pulse Ox 97 08/20/20 07:55 Testing Laboratory Results 08/20/20 07:18 Urine Color Yellow 08/18/20 19:20 Urine Appearance Clear (Clear) 08/18/20 19:20 Urine pH 7.0 (4.5-7.5) 08/18/20 19:20 Ur Specific [place] 1.012 (1.000-1.030) 08/18/20 19:20 Urine Protein Negative (Negative) 08/18/20 19:20 Urine Glucose (UA) Negative (Negative) 08/18/20 19:20 Urine Ketones Negative (Negative) 08/18/20 19:20 Urine Nitrite Negative (Negative) 08/18/20 19:20 Ur Leukocyte Esterase Negative (Negative) 08/18/20 19:20 Urine WBC (Auto) 1-5 /hpf (0-5) 08/18/20 19:20 Urine RBC (Auto) 5-10 /hpf (0-4) H 08/18/20 19:20 U Hyaline Cast (Auto) 0 /lpf (0-5) 08/18/20 19:20 U Epithel Cells (Auto) 5-10 /lpf (0-5) H 08/18/20 19:20 Urine Bacteria (Auto) Negative (Negative) 08/18/20 19:20 Electrocardiogram Date: 08/20/20 Normal sinus rhythm Normal ECG When compared with ECG of 19-AUG-2020 06:32, No significant change was found
[2020-08-20 08:24] LABS: BUN Creatinine Ratio 3.7 (10-20); Blood Urea Nitrogen 3 mg/dl (7-18); C Reactive Protein < 0.29 mg/dl (0-0.29); Calcium 8.6 mg/dl (8.5-10.1); Carbon Dioxide 28 mmol/L (21-32); Chloride 112 mmol/L (98-107); Creatinine Clr Calc Pharmacy 106.6 ml/min; Est GFR (African American) 121.3; Est GFR (Non-African American) 104.7; Glucose 107 mg/dl (70-99); Sodium 144 mmol/L (136-145)
[2020-08-20] MEDS: methylPREDNISolone 20 MG in SYRINGE 0 ML IV SCH ×2 (08:26→13:22)
--- NOTE | 2020-08-20 08:55 | History & Physical Report ---
Date of Service August 20, 2020 Assessment & Plan Admission and Anticipated Discharge Date Admission Date: August 18, 2020 History of Present Illness Primary Care Provider: Giovany Correa DO Crohn's disease admit with flare CV: RRR Resp: CTA Abd: soft A/P: Cscopy today Allergies Allergy/AdvReac Type Severity Reaction Status Date / Time No Known Allergies Allergy Verified 04/27/20 03:21 Home Medications Medication Instructions Recorded Confirmed Type lorazepam 0.5 mg PO TID 04/20/19 08/18/20 History bupropion HCl 100 mg PO TID 04/27/20 08/18/20 History dicyclomine 10 mg PO TID 04/27/20 08/18/20 History fluoxetine 40 mg PO DAILY 04/27/20 08/18/20 History pantoprazole 40 mg PO HS 04/27/20 08/18/20 History acetaminophen 650 mg PO TID PRN #30 cap 04/30/20 08/18/20 Rx adalimumab [Humira(CF) Pen] 40 mg SUBCUT UD 08/18/20 08/18/20 History albuterol sulfate 2 puff INHALATION QID 08/18/20 08/18/20 History azelastine 2 spray INTRANASAL BID 08/18/20 08/18/20 History fish dji-dystm-5-vit C-vit E 2.5 g PO DAILY 08/18/20 08/18/20 History Past Med/Surg History Medical History Abnormal CT scan, chest Acute hypoxemic respiratory failure Cholelithiasis Chronic maxillary sinusitis Crohn's disease Depression with anxiety History of Clostridioides difficile colitis History of deviated nasal septum History of erythema nodosum History of uveitis Prolonged QT interval Tobacco abuse Surgical History History of colectomy History of colonoscopy Last 07/2019 History of rhinoplasty Multiple nasal surgeries x3 Family History Father Heart disease TIA (transient ischemic attack) Mother Heart disease FH: diverticulitis Sister Crohn's disease Diabetes Social History Smoking Status: Current every day smoker Tobacco Type: Cigarettes Years Smoked: 35; Cigarettes Per Day: 10; Second Hand Exposure: No; Do You Dip or Chew Tobacco: No; Hx Alcohol Use: Yes Alcohol type: wine Alcohol type Comment: Once a month Hx Substance Use: No Preferred Language: [place] Communication Ability: Effective Strategic Accounts Manager Required: No Beliefs That Will Affect Care: None marital status: Single Current Living Situation: Other Other Information That Helps Us Care for You: No Feels Safe at Home: Yes Safety Concerns: Feels Safe At This Time Assistive Devices: Glasses and Oxygen - Continuous Results & Data ([facility]) Vital Signs (Past 12 Hours) Vital Signs Temp Pulse Pulse Resp BP Pulse Ox 08/20/20 08:08 36.7 C 71 18 121/70 93 08/20/20 07:55 73 16 97 08/20/20 03:48 36.6 C 74 18 120/66 95 08/19/20 23:58 72 08/19/20 23:40 37.1 C 76 18 134/80 96 Code Status & VTE Plan VTE Prophylaxis Plan VTE Prophylaxis will be ordered: Yes
[2020-08-20] MEDS ORDERED: LIDOCAINE HCL 2% 2 ML VIAL/AMP(20MG/ML) INFIL ONE (10:23)
[2020-08-20] MEDS ORDERED: PROPOFOL IV EMULSION 10 MG/ML 20 ML VIAL IV ONE (10:23)
--- NOTE | 2020-08-20 11:21 | Communication Note ---
Date of Service: August 20, 2020 S/P Colonoscopy No GI contraindication to D/C home Recommend consultation as OP by Colorectal surgery given today's findings of stricture Avoid constipation, bowel regimen of miralax 1 capful daily Short steroid taper evan 2/3 weeks 40 mg --> 30 mg --> 20 mg --> 10 mg Course of Cipro to be considered GI to sign off. Please see endo report for additional recommendations
--- NOTE | 2020-08-20 11:55 | GI REPORT ---
Patient Name: Keiry Cruz Procedure Date: 08/20/2020 10:41 AM Date of : 1975 Admit Type: Inpatient Age: 45 Gender: Female Attending MD: Cheryl Rowley MD Procedure: Colonoscopy Providers: Cheryl Rowley MD Referring MD: Arron Merino Md Indications: Follow-up of Crohn's disease of the small bowel Medicines: See the Anesthesia note for documentation of the administered medications Complications: No immediate complications. Estimated Blood Loss: Estimated blood loss: none. Procedure: Pre-Anesthesia Assessment: - ASA Grade Assessment: III - A patient with severe systemic disease. After I obtained informed consent, the scope was passed under direct vision. Throughout the procedure, the patient's blood pressure, pulse, and oxygen saturations were monitored continuously. The Colonoscope was introduced through the anus and advanced to the terminal ileum. The colonoscopy was performed without difficulty. The patient tolerated the procedure well. The quality of the bowel preparation was good. Findings: There were large elephant ear hemorrhoids seen on perianal exam. On rectal retroflexion, pt had hemorrhoids, and a opening to a perianal fistula. There was no evidence of colitis throughout the colon. Biopsies done every 10 cm in 4 quadrants throughout the colon and in the rectum. There was a side to side ileocolonic anatamosis. Similar to the prior exam, the opening to the blind pouch and to the neoterminal ileum were both markedly stenosed and ulcerated. The opening to the neoterminal ileum appeared to be approximately 7 mm in diameter. There was mild edema of the mucosa at the anastamosis; the anastamosis was biopsied. The ileum could not be intubated. 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 Recommendation: - Discharge patient to floor. OK for discharge home once tolerating PO. - Advance to low residue diet. - Cipro 500 BID x 10 days as empiric therapy for SIBO. - It appears that her disease is primarily cicatrical, rather than inflammatory - will request MRE to evaluate for this. Can switch to PO prednisone, with plans for accelerated prednisone taper - 40 x 3 days, then 30 x 3 d, 20 x 3 days, 10 x 3 days. - Regarding stricture, will request surgical consult. May consider endosocpic dilation depending on MRE. Cheryl Rowley M.D. Cheryl Rowley MD 08/20/2020 11:55:20 AM This report has been signed electronically. Note Initiated On: 08/20/2020 10:41 AM Number of Addenda: 0 I attest to the content of the Intraoperative Record and orders documented therein, exceptions below {[id number]}
--- NOTE | 2020-08-20 12:31 | Anesthesiology Progress Note ---
Date of Service August 20, 2020 Anesthesia Post Procedure Vital Signs Vital Signs: Temp Pulse Pulse Resp BP BP Pulse Ox 08/20/20 12:15 36.8 C 63 18 136/73 97 08/20/20 11:54 65 16 134/79 98 08/20/20 11:40 65 18 129/74 96 08/20/20 11:26 68 16 119/72 95 08/20/20 08:48 36.7 C 71 16 146/72 H 95 08/20/20 08:08 36.7 C 71 18 121/70 93 08/20/20 07:55 73 16 97 08/20/20 03:48 36.6 C 74 18 120/66 95 08/19/20 23:58 72 08/19/20 23:40 37.1 C 76 18 134/80 96 08/19/20 20:11 36.7 C 84 18 123/75 91 08/19/20 19:59 84 18 91 08/19/20 15:21 36.6 C 89 20 112/62 90 08/19/20 14:51 64 16 93 Pain Intensity Abdomen: Pain Intensity: 5 Transfer of Care Handoff Completed per policy Notes Mental Status: alert / awake / arousable and participated in evaluation Patient Amnestic to Procedure: Yes Nausea / Vomiting: adequately controlled Pain: adequately controlled Airway Patency, RR, SpO2: stable & adequate BP & HR: stable & adequate Hydration State: stable & adequate Anesthetic Complications: no major complications apparent and Pt Satisfied with anesthetic care
--- NOTE | 2020-08-20 13:45 | Hospitalist Progress Note ---
Date of Service August 20, 2020 Assessment & Plan (1) Abdominal pain: Probable flare of Crohn's disease. -CT ABD:Prior right hemicolectomy with diffuse wall thickening and inflammatory change involving the remaining colon, rectum, and ileocolic anastomosis. Findings are consistent with acute or chronic inflammatory bowel disease. Cholelithiasis. 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 -MR enterography pending -Stool for C. difficile negative -Stool culture negative -Needs colorectal surgery evaluation for structural evaluation as outpatient -Continue bowel regimen daily to prevent constipation --Plan to taper steroids over 2 to 3 weeks as able -Continue ciprofloxacin course as per GI--10 days for SIBO empirically -Appreciate GI Input -Plan to advance to low residue diet as able -Leukocytosis likely secondary to steroids Chronic respiratory failure with hypoxia Interstitial lung disease as per prior records Tobacco use disorder Continue supplemental oxygen as needed (2) Hypokalemia: Resolved Repleted fluids as needed Normal Mag levels (3) Lab test negative for COVID-19 virus: SARS-CoV-2 PCR negative 08/18. (4) Prolonged QT interval: Avoid QT prolonging drugs as able Monitor electrolytes (5) DVT prophylaxis: SCD's Re; GI bleed Ambulate. (6) Discharge planning issues: Plan to discharge home as able Family Medicine follow-up with Dr. Correa. Admission and Anticipated Discharge Date Admission Date: August 18, 2020 Subjective Patient is seen and examined at bedside States having generalized abdominal pain Had colonoscopy earlier today Reports bloody bowel movement overnight Denies nausea, vomiting, chest pain, dyspnea, dizziness Plan for MR enterography today Offers no other complaints Review of Systems Review of Systems: All systems reviewed & are unremarkable except as noted in HPI & below Physical Exam Physical Exam: Physical Exam: Vitals signs as noted above General Appearance:Moderately built and nourished, no apparent distress Head: normocephalic, Atraumatic Eyes: normal inspection, EOMI Neck: supple, Trachea midline Respiratory/Chest: Normal breath sounds, CTA Cardiovascular: S1, S2, No murmur Abdomen/GI:Soft, generalized tender, LLQ predominantly, Bowel sounds present Extremities/Musculoskelatal:normal inspection, no edema Neurologic/Psych:AAOX3, grossly no focal neurological deficits Skin: normal color, warm Results & Data Results & Data ([facility]) Vital Signs (Past 12 Hours) Vital Signs Temp Pulse Pulse Resp BP BP Pulse Ox 08/20/20 12:45 36.8 C 70 18 132/67 96 08/20/20 12:30 36.7 C 67 18 131/78 97 08/20/20 12:15 36.8 C 63 18 136/73 97 08/20/20 11:54 65 16 134/79 98 08/20/20 11:40 65 18 129/74 96 08/20/20 11:26 68 16 119/72 95 08/20/20 08:48 36.7 C 71 16 146/72 H 95 08/20/20 08:08 36.7 C 71 18 121/70 93 08/20/20 08:00 65 08/20/20 07:55 73 16 97 08/20/20 03:48 36.6 C 74 18 120/66 95 Laboratory Results Short CBC 08/20/20 Range/Units 07:18 WBC 14.29 H (4.8-10.8) K/uL Hgb 12.2 (12.0-16.0) g/dL Hct 37.8 (37-47) % Plt Count 351 (130-400) K/uL BMP 08/20/20 07:18 Sodium 144 Potassium 4.0 Chloride 112 H Carbon Dioxide 28 BUN 3 L Creatinine 0.67 Glucose 107 H Calcium 8.6 (1) Abdominal pain Abdominal location: generalized Qualified Code(s): R10.84 - Generalized abdominal pain
[2020-08-20] MEDS ORDERED: GLUCAGON FOR INJ 1 MG VIAL IM ONE (14:00)
[2020-08-20] MEDS ORDERED: GADOBUTROL 65ML VIAL IV ONE (14:52)
--- NOTE | 2020-08-20 15:02 | Electrocardiogram Report ---
Test Reason : Blood Pressure : / mmHG Vent. Rate : 062 BPM Atrial Rate : 062 BPM P-R Int : 130 ms QRS Dur : 084 ms QT Int : 448 ms P-R-T Axes : 050 011 042 degrees QTc Int : 454 ms Normal sinus rhythm Normal ECG When compared with ECG of 19-AUG-2020 06:32, No significant change was found Confirmed by Leonid Perez ([id number]) on 08/20/2020 3:02:43 PM Referred By: REFERRED SELF Confirmed By:Zak Perez
--- NOTE | 2020-08-20 15:23 | Magnetic Resonance Report ---
MR enterography wo/w con CLINICAL HISTORY: Crohn's. Small bowel stricture. Bloody stool. History of multiple bowel resections. COMPARISON STUDY: CT scan dated 08/18/2020 FINDINGS: MR enterography was performed. The patient was administered oral the lumen. Images were acq uired before and after the administration of 7.5 cc of intravenous Gadavist. There are patchy airspace opacities the lung bases, atelectatic versus infectious/inflammatory. There are no suspicious areas of marrow replacement. No hepatic or splenic masses are visualized. There is cholelithiasis. There is no ductal dilatation. No renal masses are visualized. No adrenal masses are visualized. No pancreatic masses are visualized. There are postsurgical changes of a prior right hemicolectomy. There is moderate rectosigmoid bowel wall thickening with mucosal hyperenhancement. The findings are indicative of inflammatory bowel disease. There is an inflamed segment of bowel beneath the anterior abdominal wall, this appears to be near th e anastomosis. This was present on the prior CT scan. There are no fluid collections to indicate an abscess. There is no definite fistula present. There is no pathologic adenopathy. IMPRESSION: 1. Postsurgical changes are prior right hemicolectomy 2. Wall thickening and inflammatory changes involving the rectosigmoid, and iliotibial colic anastomo sis. The findings are indicative of acute or chronic inflammatory bowel disease. 3. No evidence of abscess. No evidence of fistula 4. Cholelithiasis 5. Bilateral lower lobe pulmonary airspace opacities, atelectatic versus infectious/inflammatory. 6. No current evidence of bowel obstruction. ACT 112: Negative or not required by law. Electronically signed by: Jermaine Vick M.D. 08/20/2020 3:21 PM
[2020-08-20] MEDS: CIPROFLOXACIN 500 MG TAB PO SCH (17:21)
[2020-08-20] MEDS: HYDROmorphone INJ 0.5 MG/0.5 ML SYR IV PRN ×2 (18:33→22:32)
[2020-08-20] MEDS: buPROPion HCl 100 MG TABLET PO SCH (20:36)
[2020-08-20] MEDS: ACETAMINOPHEN 325 MG TAB PO PRN (20:36)
[2020-08-20] MEDS: PANTOprazole 40 MG TAB PO SCH (20:36)
[2020-08-21] MEDS: HYDROmorphone INJ 0.5 MG/0.5 ML SYR IV PRN ×3 (04:43→14:09)
[2020-08-21] MEDS: D5NSS + 20MEQ KCL 20 MEQ/1,000 ML BAG IV SCH (04:46)
[2020-08-21 07:26] LABS: BUN Creatinine Ratio 8.2 (10-20); Calcium 8.3 mg/dl (8.5-10.1); Creatinine Clr Calc Pharmacy 145.8 ml/min; Est GFR (African American) 134.5; Potassium 3.2 mmol/L (3.5-5.1)
[2020-08-21] MEDS: ALBUTEROL HFA 8 GM INHALER INH SCH (07:44)
[2020-08-21] MEDS ORDERED: ALBUTEROL HFA 8 GM INHALER INH PRN (08:20)
[2020-08-21] MEDS: CIPROFLOXACIN 500 MG TAB PO SCH (08:38)
[2020-08-21] MEDS: buPROPion HCl 100 MG TABLET PO SCH ×2 (08:38→14:09)
[2020-08-21] MEDS: LORazepam 0.5 MG TAB PO SCH ×2 (08:43→14:09)
[2020-08-21] MEDS ORDERED: POLYETHYLENE (MIRALAX) 17 GM PACK PO SCH (09:00)
[2020-08-21] MEDS ORDERED: predniSONE 20 MG TAB PO SCH (09:00)
[2020-08-21] MEDS ORDERED: POTASSIUM CHLORIDE CRTAB 20 MEQ TABCR PO ONE (10:01)
--- NOTE | 2020-08-21 15:04 | Hospitalist Progress Note ---
Date of Service August 21, 2020 Assessment & Plan (1) Abdominal pain: Probable flare of Crohn's disease. -CT ABD:Prior right hemicolectomy with diffuse wall thickening and inflammatory change involving the remaining colon, rectum, and ileocolic anastomosis. Findings are consistent with acute or chronic inflammatory bowel disease. Cholelithiasis. 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 -MR enterography pending -Stool for C. difficile negative -Stool culture negative -Needs colorectal surgery evaluation for structural evaluation as outpatient -Continue bowel regimen daily to prevent constipation --Plan to taper steroids over 2 to 3 weeks as able -Continue ciprofloxacin course as per GI--10 days for SIBO empirically -Appreciate GI Input -Leukocytosis likely secondary to steroids -Tolerated low fiber diet -Needs follow-up with GI as outpatient Chronic respiratory failure with hypoxia Interstitial lung disease as per prior records Tobacco use disorder Continue supplemental oxygen as needed (2) Hypokalemia: Repleted fluids as needed Normal Mag levels (3) Lab test negative for COVID-19 virus: SARS-CoV-2 PCR negative 08/18. (4) Prolonged QT interval: Avoid QT prolonging drugs as able Monitor electrolytes Advised to hold home fluoxetine while on ciprofloxacin. (5) DVT prophylaxis: SCD's Re; GI bleed Ambulate. (6) Discharge planning issues: Plan to discharge home today Family Medicine follow-up with Dr. Correa. Admission and Anticipated Discharge Date Admission Date: August 18, 2020 Subjective Patient is seen and examined at bedside Abdominal pain is better today Denies any bleeding issues Tolerated regular diet Denies nausea, vomiting, blood in stools, chest pain, dyspnea Offers no other complaints Discussed with GI today. Review of Systems Review of Systems: All systems reviewed & are unremarkable except as noted in HPI & below Physical Exam Physical Exam: Physical Exam: Vitals signs as noted above General Appearance:Moderately built and nourished, no apparent distress Head: normocephalic, Atraumatic Eyes: normal inspection, EOMI Neck: supple, Trachea midline Respiratory/Chest: Normal breath sounds, CTA Cardiovascular: S1, S2, No murmur Abdomen/GI:Soft, non tender, Bowel sounds present Extremities/Musculoskelatal:normal inspection, no edema Neurologic/Psych:AAOX3, grossly no focal neurological deficits Skin: normal color, warm Results & Data Results & Data ([facility]) Vital Signs (Past 12 Hours) Vital Signs Temp Pulse Pulse Pulse Resp BP BP 08/21/20 13:58 36.8 C 69 76 17 139/72 148/79 H 08/21/20 11:05 36.8 C 76 17 148/79 H 08/21/20 08:00 65 08/21/20 07:44 73 16 08/21/20 04:13 36.6 C 65 18 127/68 Pulse Ox 08/21/20 13:58 96 08/21/20 11:05 96 08/21/20 08:00 08/21/20 07:44 95 08/21/20 04:13 95 Laboratory Results BMP 08/21/20 06:23 Sodium 143 Potassium 3.2 L D Chloride 109 H Carbon Dioxide 30 BUN 4 L Creatinine 0.49 L Glucose 82 Calcium 8.3 L (1) Abdominal pain Abdominal location: generalized Qualified Code(s): R10.84 - Generalized abdominal pain
--- NOTE | 2020-08-21 15:59 | Discharge Summary ---
Date of Service August 21, 2020 Admission HPI Per Admitting Provider CHIEF COMPLAINT: Abdominal pain and blood in the stool. HISTORY OF PRESENT ILLNESS: This is a 45-year-old female with past medical history significant for Crohn's disease, multiple surgeries for Crohn's disease, history of large intestine enteritis, chronic maxillary sinusitis, secondary amenorrhea, tobacco use disorder, depression, status post intestinal anastomosis, who was recently in the hospital for the small-bowel obstruction, which resolved with conservative management and also started on IV Solu-Medrol by GI with prednisone taper, who comes in because of abdominal pain and blood in the stool since yesterday. The patient says she is back on Humira; she took it about 15 days ago. Since yesterday, she is having lot of blood in the stools and she had 6 episodes of diarrhea and abdominal pain. In the ER, she received Dilaudid and currently pain is under control. She also had severe nausea, she received a dose of Zofran. When she came from the CAT scan with contrast of abdomen and pelvis, she became dizzy, lightheaded, warm, and not feeling good and she looked pale per the ER physician, but this subsequently improved. Her EKG showed QTc of 530. Currently resting comfortably and hemodynamically stable. She says she had many CAT scans in the past and never had this reaction. She had runny nose and cough for a week and that resolved about 3-4 days ago. Denies any fever. No shortness of breath, no chest pain, no loss of sense of smell or taste. Appetite is down since last couple of weeks. No headache, no blurred visions, no earache, no runny nose, no sore throat, no dysphagia, no odynophagia. Abdominal pain is currently 4/10 in severity. Normal bladder movements. No rash. Currently resting comfortably and hemodynamically stable. The patient lives with a roommate and she is not exposed to any COVID patients. Admission Exam Per Admitting Provider PHYSICAL EXAMINATION: GENERAL: The patient is of moderate build, not in acute distress. VITAL SIGNS: Temperature 37.2, pulse 77, respiratory rate 16, blood pressure 139/83, and oxygen 95% on room air. HEENT: Pupils equal, round, reactive to light. Oral mucosa moist. NECK: No neck masses seen. CARDIOVASCULAR: S1, S2 heard. Regular rate and rhythm, no murmur, no gallop. RESPIRATORY SYSTEM: Normal AP diameter. No accessory muscle use. No wheezing, no crackles. ABDOMEN: Soft, bowel sounds present. Mild abdominal discomfort. Mild guarding, no rigidity. No distention. CENTRAL NERVOUS SYSTEM: Cranial nerves II-XII grossly intact, nonfocal. EXTREMITIES: No edema, no erythema. Principal Diagnosis Crohn's disease flare Anastamotic stricture Perianal fistula Hypokalemia Discharge Data Allergies Allergy/AdvReac Type Severity Reaction Status Date / Time No Known Allergies Allergy Verified 08/20/20 09:01 Consultations 08/18/20 21:30 ED Decision to Admit Stat 08/19/20 02:06 Consult Case Management - Discharge Planning Routine 08/19/20 08:00 Consult Gastroenterology Routine Procedures Performed CT ABD:Prior right hemicolectomy with diffuse wall thickening and inflammatory change involving the remaining colon, rectum, and ileocolic anastomosis. Findings are consistent with acute or chronic inflammatory bowel disease. Cholelithiasis. MRI enterography 1. Postsurgical changes are prior right hemicolectomy 2. Wall thickening and inflammatory changes involving the rectosigmoid, and iliotibial colic anastomosis. The findings are indicative of acute or chronic inflammatory bowel disease. 3. No evidence of abscess. No evidence of fistula 4. Cholelithiasis 5. Bilateral lower lobe pulmonary airspace opacities, atelectatic versus infectious/inflammatory. 6. No current evidence of bowel obstruction. Colonoscopy: Findings: There were large elephant ear hemorrhoids seen on perianal exam. On rectal retroflexion, pt had hemorrhoids, and a opening to a perianal fistula. There was no evidence of colitis throughout the colon. Biopsies done every 10 cm in 4 quadrants throughout the colon and in the rectum. There was a side to side ileocolonic anatamosis. Similar to the prior exam, the opening to the blind pouch and to the neoterminal ileum were both markedly stenosed and ulcerated. The opening to the neoterminal ileum appeared to be approximately 7 mm in diameter. There was mild edema of the mucosa at the anastamosis; the anastamosis was biopsied. The ileum could not be intubated. 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 Recommendation: - Discharge patient to floor. OK for discharge home once tolerating PO. - Advance to low residue diet. - Cipro 500 BID x 10 days as empiric therapy for SIBO. - It appears that her disease is primarily cicatrical, rather than inflammatory - will request MRE to evaluate for this. Can switch to PO prednisone, with plans for accelerated prednisone taper - 40 x 3 days, then 30 x 3 d, 20 x 3 days, 10 x 3 days. - Regarding stricture, will request surgical consult. May consider endosocpic dilation depending on MRE. Operation Date: 08/20/20 17:00 Actual Procedures p Colonoscopy Biopsy Cytology - Cheryl Rowley MD Ordered Studies 08/18/20 19:26 CT abd pelvis IV con only Stat 08/20/20 11:55 MR enterography wo/w con Routine Hospital Course (1) Abdominal pain: Probable flare of Crohn's disease. -CT ABD:Prior right hemicolectomy with diffuse wall thickening and inflammatory change involving the remaining colon, rectum, and ileocolic anastomosis. Findings are consistent with acute or chronic inflammatory bowel disease. Cholelithiasis. 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 -MR enterography pending -Stool for C. difficile negative -Stool culture negative -Needs colorectal surgery evaluation for structural evaluation as outpatient -Continue bowel regimen daily to prevent constipation --Plan to taper steroids over 2 to 3 weeks as able -Continue ciprofloxacin course as per GI--10 days for SIBO empirically -Appreciate GI Input -Leukocytosis likely secondary to steroids -Tolerated low fiber diet -Needs follow-up with GI as outpatient Chronic respiratory failure with hypoxia Interstitial lung disease as per prior records Tobacco use disorder Continue supplemental oxygen as needed (2) Hypokalemia: Repleted fluids as needed Normal Mag levels (3) Lab test negative for COVID-19 virus: SARS-CoV-2 PCR negative 08/18. (4) Prolonged QT interval: Avoid QT prolonging drugs as able Monitor electrolytes Advised to hold home fluoxetine while on ciprofloxacin. (5) DVT prophylaxis: SCD's Re; GI bleed Ambulate. (6) Discharge planning issues: Plan to discharge home today Family Medicine follow-up with Dr. Correa. Total Time Total Time Spent Total Time Spent (In Minutes): 45 minutes Total Time Includes: Examination of the Patient, Discharge Planning, Medication Reconciliation, Communication With Other Providers and Other Discharge Plan Discharge Items Patient Disposition: Home - Self-Care Reason For Visit: ABDOMINAL PAIN Discharge Diagnosis: Crohn's disease flare Anastamotic stricture Perianal fistula Hypokalemia Activity: Per Instructions section Exercise/Sports: Gradually increase as tolerated Non-emergency contact: Primary Care Provider and Filling [place]inder Call non-emergency contact if: you have any medication questions, your symptoms worsen, your pain is not controlled, your pain is worsening, your pain is unusual for you, your pain is concerning for you and you have a fever Follow-up/Referrals: Giovany Correa DO [Primary Care Provider] - (Date & Time 08/27/2020 11:00 AM Provider Giovany Correa DO Department [facility] ) Diet: Low Fiber Addtl Attending Provider Instructions: Follow-up with your primary care physician on 08/27/2020 11:00 AM 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 Rowley in 3-4 weeks Follow-up with your colorectal surgery as recommended by your nuclear plant technical advisor for further evaluation and management of anastomotic stricture found on colonoscopy. Prednisone Taper Course: Start taking prednisone 40 mg daily for 4 days, then 30 mg daily for 4 days, 20 mg daily for 4 days, 10 mg daily for 4 days and stop. Complete the antibiotic course ciprofloxacin 500 mg twice a day for 9 more days Take fluoxetine 20 mg daily instead of your home dose of 40 mg while on ciprofloxacin. Can resume 40 mg fluoxetine daily after completion of ciprofloxacin therapy. Further recommendations as per your psychiatrist. Seek immediate medical attention if your symptoms reoccur or worsen Pending Studies at Discharge: No Stand-Alone Forms: My [facility], Smoking Cessation Medications and DC Order Prescriptions: New polyethylene glycol 3350 [Miralax] 17 gram Powder In Packet 17 g PO DAILY 30 Days Qty: 30 RF: 0 prednisone 10 mg tablet 10 mg PO UD Qty: 40 RF: 0 fluoxetine 20 mg capsule 20 mg PO DAILY Qty: 10 RF: 0 ciprofloxacin HCl 500 mg Tablet 500 mg PO BID Qty: 18 RF: 0 potassium chloride 10 mEq capsule, extended release 10 meq PO DAILY Qty: 7 RF: 0 Continued bupropion HCl 100 mg tablet 100 mg PO TID RF: 0 dicyclomine 10 mg capsule 10 mg PO TID RF: 0 pantoprazole 40 mg tablet,delayed release (DR/EC) 40 mg PO HS RF: 0 acetaminophen 325 mg capsule 650 mg PO TID PRN (Reason: fever or pain) Qty: 30 RF: 0 fish [id number]-[id number]-vit C-vit E 2,000-650-12 mg/2.5 gram Emulsion In Packet 2.5 g PO DAILY RF: 0 azelastine 137 mcg (0.1 %) aerosol,spray 2 spray INTRANASAL BID RF: 0 albuterol sulfate 90 mcg/actuation HFA aerosol inhaler 2 puff INHALATION QID RF: 0 Humira(CF) Pen 40 mg/0.4 mL pen injector kit 40 mg SUBCUT UD RF: 0 lorazepam 0.5 mg Tablet 0.5 mg PO TID RF: 0 Discontinued fluoxetine 40 mg capsule 40 mg PO DAILY RF: 0 Discharge Orders: Discharge Order (Routine); Ordered 08/21/20 Ordered By: Arron Merino Admission Data Admit Date/Time: 08/18/20 23:02 Attending Provider: Arron Merino Admit Provider: Zhou Andrea Primary Care Provider: Giovany Correa Other Providers: Zhou Andrea ; Cheryl Rowley Other Interventions: Discharge Summary Assessment (RN) Last Done: 08/21/20 13:58
== END 2020-08-21 16:55 | disposition home or self-care (01) | DRG 386 ==
LOC: ED 17:34 → 2S 23:02 → SUATTDRO 23:02 → 2S 08-19 01:29

== ENCOUNTER 2022-12-31 20:33 | Inpatient (IN) ==
[2022-12-31] MEDS ORDERED: SODIUM CHLORIDE 0.9% 1000ML 1,000 ML IV STA (20:42)
[2022-12-31 20:57] LABS: Basophils # (auto) 0.07 K/uL (0-0.2); Basophils % (auto) 0.6 %; Eosinophils # (auto) 0.16 K/uL (0-0.50); Eosinophils % (auto) 1.4 %; Hematocrit (blood only) 41.8 % (37.0-47.0); Hemoglobin 14.3 g/dl (12.0-16.0); Immature Granulocytes # (auto) 0.04 K/uL (0.01-0.20); Immature Granulocytes % (auto) 0.3 %; Lymphocytes # (auto) 2.43 K/uL (1.2-3.4); Lymphocytes % (auto) 20.9 %; Mean Corpuscular Hemoglobin 30.2 pg (25.0-34.0); Mean Corpuscular Hgb Conc 34.2 g/dL (32.0-36.0); Mean Corpuscular Volume 88.4 fL (80.0-100.0); Mean Platelet Volume 8.7 fL (9.4-12.4); Monocytes # (auto) 0.81 K/uL (0.11-0.59); Neutrophils # (auto) 8.09 K/uL (1.40-6.50); Neutrophils % (auto) 69.8 %; Platelet Count 375 K/uL (130-400); RDW Coefficient of Variation 12.7 % (11.5-14.5); RDW Standard Deviation 41.2 fL (36.4-46.3); Red Blood Count 4.73 M/uL (4.20-5.40)
[2022-12-31 21:15] LABS: Albumin Globulin Ratio 1.2 (0.9-2); Albumin Level 4.2 gm/dl (3.4-5.0); BUN Creatinine Ratio 14.9 (10-20); Bilirubin,Total 0.3 mg/dl (0.2-1.0); Calcium 9.3 mg/dl (8.6-10.3); Creatinine Clr Calc Pharmacy 103.6 ml/min; Est GFR (African American) 110.3 ml/min; Est GFR (Non-African American) 95.1 ml/min; Globulin 3.5 gm/dl (2.5-4.0); Potassium 3.9 mmol/L (3.5-5.1); Total Protein 7.7 gm/dl (6.0-8.3)
[2022-12-31] MEDS ORDERED: ONDANSETRON INJ 2 MG/ML 2 ML VIAL IV STA (22:06)
[2022-12-31] MEDS ORDERED: SODIUM CHLORIDE 0.9% 1000ML 2,000 ML IV ONE (22:06)
[2022-12-31] MEDS ORDERED: MoRPHine SULFATE 4 MG/ML 1 ML CARP\\VIAL IV STA (22:06)
--- NOTE | 2022-12-31 22:06 | Emergency Department Note ---
Impression & Plan SBO (small bowel obstruction), Abdominal pain ED Provider Note NAME: BREEZY SAUCEDA AGE: 47 SEX: F : 1975 ARRIVES VIA: Ambulance INFORMANT: Patient ED PROVIDER(S): Joseph Montoya DO CHIEF COMPLAINT: abdominal pain HPI: Patient is a 47-year-old female who presents to the ER with a past medical history of cholelithiasis, small bowel obstruction, Crohn's disease for pain in the right mid abdomen associated with diarrhea. Denies any blood. No headache or change in vision. No chest pain or shortness of breath. Admits to nausea but no vomiting. No dysuria urgency or frequency. Pain is worse with movement. She is taking Stelara. She has not missed any doses. She follows with [facility] gastroenterology. Last flare was in 2021. She has had 5 bowel surger ies for resections. PAST MEDICAL HISTORY:See Below PAST SURGICAL HISTORY:See Below FAMILY HISTORY:See Below SOCIAL HISTORY:See Below HOME MEDICATIONS:See Below ALLERGIES:See Below VITALS:See Below PHYSICAL EXAMINATION: GENERAL: Sitting up in bed, alert, well appearing, well nourished, no distress, non-toxic EYE EXAM: normal conjunctiva. OROPHARYNX:mucous membranes are moist NECK: supple, no nuchal rigidity, no adenopathy, non-tender LUNGS: Clear to auscultation. Normal chest wall mechanics HEART: no murmurs, S1 normal and S2 normal ABDOMEN: abdomen soft, TTP in Right mid abd, normo-active bowel sounds, no masses, no rebound or guarding. UPPER EXTREMITIES: upper extremities are grossly normal. LOWER EXTREMITIES: No pitting edema. NEURO EXAM: Normal sensorium, cranial nerves II-XII grossly intact, normal speech, no gross weakness of arms, no gross weakness of legs. MEDICAL DECISION MAKING: Patient is a 47-year-old female who presents ER for above-stated complaint. IV was established blood work was obtained. Labs show mild leukocytosis of 11,000. No significant anemia. BMP along with LFTs bilirubin and lipase is unremarkable. UA was contaminated. COVID-negative. CT abdomen pelvis suggest a small bowel obstruction likely secondary to adhesions. Discussed case with [facility] Adebayo Roberts who is on-call and evaluate the patient. Also discussed the case with the hospitalist Dr. Reji Young for further evaluation management treatment. Patient was given 1 dose of IV morphine as well as Zofran. Triage Nursing notes reviewed. Limited review of prior medical records performed Vital Signs: reviewed and remarkable for no significant abnormalities Differential diagnosis: Differential diagnoses includes but is not limited to gastritis, peptic ulcer disease, GERD, gallbladder disease, pancreatitis, small bowel obstruction, appendicitis, diverticulitis, hernia, urinary tract infection, torsion, perforation, trauma, infectious. ER treatment provided: See below Diagnostics interpreted by me include EKG and cardiac monitoring as listed below: -Cardiac Monitoring: An order was placed for continuous cardiac monitoring. The monitor shows a rate of 80 with sinus rhythm. -ECG: none -Laboratory studies:Interpreted by me as stated above in MDM and shown below. Imaging studies: Xrays: As interpreted by me:none CTs show: CT abdomen pelvis showed no pneumonia in the lower lung acosta per my read CT abdomen pelvis per radiology as described above Consultation(s): As described in MDM discussed with general surgery who recommended admission to the hospitalist. Discussed with Dr. Young for further evaluation management treatment. Procedures:none Critical Care: None Past Med/Surg History Medical History Abnormal CT scan, chest Acute hypoxemic respiratory failure Cholelithiasis Chronic maxillary sinusitis Crohn's disease Depression with anxiety History of Clostridioides difficile colitis History of deviated nasal septum History of erythema nodosum History of uveitis Prolonged QT interval Tobacco abuse Surgical History History of colectomy History of colonoscopy Last 07/2019 History of rhinoplasty Multiple nasal surgeries x3 Family History Father Heart disease TIA (transient ischemic attack) Mother Heart disease FH: diverticulitis Sister Crohn's disease Diabetes Social History Smoking Status: Current every day smoker Tobacco Type: Cigarettes Cigarettes Per Day: 10; Second Hand Exposure: No; Do You Dip or Chew Tobacco: No; Hx Alcohol Use: Yes Alcohol type: wine Alcohol type Comment: Once a month Hx Substance Use: Yes Last Used Substance Other:: 3 to 4 weeks ago Preferred Language: Persian Communication Ability: Effective [employer] Required: No Beliefs That Will Affect Care: None marital status: Single Current Living Situation: Other Current Living Situation Comment: room mate Feels Safe at Home: Yes Assistive Devices: Glasses Allergies Allergies Allergy/AdvReac Type Severity Reaction Status Date / Time No Known Allergies Allergy Verified 12/31/22 21:56 Home Meds Home Medications Medication Instructions Recorded Confirmed azelastine 137 mcg (0.1 %) nasal 2 spray intranasal BID PRN Nasal 04/29/22 12/31/22 spray aerosol Congestion bupropion HCl 75 mg tablet 150 mg PO BID 04/29/22 12/31/22 calcium carbonate 500 mg-vitamin 1 tab PO HS 04/29/22 12/31/22 D3 5 mcg (200 unit) tablet (Calcium 500 + D) fluoxetine 40 mg capsule 80 mg PO DAILY 04/29/22 12/31/22 fluticasone propionate 50 2 spray intranasal DAILY 04/29/22 12/31/22 mcg/actuation nasal spray,suspension gabapentin 300 mg capsule 300 mg PO BID 04/29/22 12/31/22 gabapentin 600 mg tablet 600 mg PO HS 04/29/22 12/31/22 lorazepam 0.5 mg tablet 0.5 mg PO TID 04/29/22 12/31/22 melatonin 5 mg tablet 5 mg PO HS 04/29/22 12/31/22 mercaptopurine 50 mg tablet 50 mg PO QAM 04/29/22 12/31/22 omega-3 fatty acids 1,000 mg 1,000 mg PO QPM 04/29/22 12/31/22 capsule pantoprazole 40 mg tablet,delayed 40 mg PO DAILY 04/29/22 12/31/22 release potassium chloride 10 mEq 10 meq PO HS 04/29/22 12/31/22 capsule,extended release ustekinumab 90 mg/mL subcutaneous 90 mg subcut .[id number] 04/29/22 12/31/22 syringe (Stelara) dextroamphetamine-amphetamine 5 mg 5 mg PO BID 12/31/22 12/31/22 tablet diphenoxylate-atropine 2.5 1 tab PO DAILY PRN Diarrhea 12/31/22 12/31/22 mg-0.025 mg tablet (Lomotil) multivitamin 1 tab PO DAILY 12/31/22 12/31/22 sodium chloride 0.65 % nasal spray 2 spray intranasal DIRECTED PRN 12/31/22 12/31/22 aerosol (Saline Nasal) NASAL DRYNESS Results & Data (ED) Vital Signs Vital Signs - 24 hr 12/31/22 20:34 12/31/22 21:17 12/31/22 20:41 Temperature 37.0 C 37.0 C Temperature Source Oral Oral Pulse Rate 91 H 78 Pulse Rate [Apical] 82 Pulse Rate from SpO2 Sensor Pulse Rhythm Regular Pulse Rhythm [Apical] Regular Pulse Strength Normal Pulse Strength [Apical] Normal Respiratory Rate 22 20 Respiratory Effort / Characteristics Non-Labored Spontaneous Non-Labored Spontaneous Respiratory Depth Normal Normal Respiratory Pattern Regular Regular Blood Pressure 159/78 H Blood Pressure [Right Arm] 151/87 H Blood Pressure Mean 105 Blood Pressure Mean [Right Arm] 108 Blood Pressure Position Lying Blood Pressure Position [Right Arm] Lying Pulse Oximetry 95 93 Oxygen Delivery Method Room Air Room Air Sepsis Recent Fever Within 48 Hours No Sepsis New/Unexplained Change in Mental Status N/A Sepsis Action Taken by Nursing No Action Required 12/31/22 21:44 12/31/22 22:00 12/31/22 23:00 Temperature Temperature Source Pulse Rate 76 76 Pulse Rate [Apical] Pulse Rate from SpO2 Sensor 77 79 Pulse Rhythm Pulse Rhythm [Apical] Pulse Strength Pulse Strength [Apical] Respiratory Rate 15 16 Respiratory Effort / Characteristics Respiratory Depth Respiratory Pattern Blood Pressure 147/80 H 174/93 H 173/94 H Blood Pressure [Right Arm] Blood Pressure Mean 102 120 120 Blood Pressure Mean [Right Arm] Blood Pressure Position Blood Pressure Position [Right Arm] Pulse Oximetry 96 97 Oxygen Delivery Method Room Air Room Air Sepsis Recent Fever Within 48 Hours Sepsis New/Unexplained Change in Mental Status Sepsis Action Taken by Nursing 12/31/22 23:00 12/31/22 23:30 12/31/22 23:30 Temperature Temperature Source Pulse Rate 77 70 Pulse Rate [Apical] Pulse Rate from SpO2 Sensor 77 Pulse Rhythm Pulse Rhythm [Apical] Pulse Strength Pulse Strength [Apical] Respiratory Rate 17 17 Respiratory Effort / Characteristics Respiratory Depth Respiratory Pattern Blood Pressure 171/84 H Blood Pressure [Right Arm] Blood Pressure Mean 113 Blood Pressure Mean [Right Arm] Blood Pressure Position Blood Pressure Position [Right Arm] Pulse Oximetry 96 Oxygen Delivery Method Sepsis Recent Fever Within 48 Hours Sepsis New/Unexplained Change in Mental Status Sepsis Action Taken by Nursing 01/01/23 00:00 01/01/23 00:00 01/01/23 01:15 Temperature Temperature Source Pulse Rate 75 71 Pulse Rate [Apical] Pulse Rate from SpO2 Sensor 76 Pulse Rhythm Pulse Rhythm [Apical] Pulse Strength Pulse Strength [Apical] Respiratory Rate 15 Respiratory Effort / Characteristics Respiratory Depth Respiratory Pattern Blood Pressure 184/91 H Blood Pressure [Right Arm] Blood Pressure Mean 122 Blood Pressure Mean [Right Arm] Blood Pressure Position Blood Pressure Position [Right Arm] Pulse Oximetry 96 Oxygen Delivery Method Sepsis Recent Fever Within 48 Hours Sepsis New/Unexplained Change in Mental Status Sepsis Action Taken by Nursing Laboratory Data 12/31/22 20:38 12/31/22 20:38 Lab Results 12/31/22 12/31/22 12/31/22 Range/Units 20:38 20:38 22:08 WBC 11.60 H (4.8-10.8) K/ul RBC 4.73 (4.20-5.40) M/uL Hgb 14.3 (12.0-16.0) g/dl Hct 41.8 (37.0-47.0) % MCV 88.4 (80.0-100.0) fL MCH 30.2 (25.0-34.0) pg MCHC 34.2 (32.0-36.0) g/dL RDW Std Deviation 41.2 (36.4-46.3) fL RDW Coeff of Samia 12.7 (11.5-14.5) % Plt Count 375 (130-400) K/uL MPV 8.7 L (9.4-12.4) fL Immature Gran % (Auto) 0.3 % Neut % (Auto) 69.8 % Lymph % (Auto) 20.9 % [place] % (Auto) 7.0 % Eos % (Auto) 1.4 % Baso % (Auto) 0.6 % Neut # (Auto) 8.09 H (1.40-6.50) K/uL Lymph # (Auto) 2.43 (1.2-3.4) K/uL [place] # (Auto) 0.81 H (0.11-0.59) K/uL Eos # (Auto) 0.16 (0-0.50) K/uL Baso # (Auto) 0.07 (0-0.2) K/uL Immature Gran # (Auto) 0.04 (0.01-0.20) K/uL Sodium 139 (136-145) mmol/L Potassium 3.9 (3.5-5.1) mmol/L Chloride 104 (98-107) mmol/L Carbon Dioxide 26 (21-32) mmol/L Anion Gap 9 (3-11) BUN 11 (6-23) mg/dl Creatinine 0.74 (0.6-1.2) mg/dl Est Cr Clr Drug Dosing 103.6 ml/min Est GFR ( Amer) 110.3 ml/min Est GFR (Non-Af Amer) 95.1 ml/min BUN/Creatinine Ratio 14.9 (10-20) Glucose 89 (70-99(Fasting)) mg/dl Calcium 9.3 (8.6-10.3) mg/dl Magnesium 1.8 (1.7-2.4) mg/dl Total Bilirubin 0.3 (0.2-1.0) mg/dl AST 21 (13-39) U/L ALT 16 (7-52) U/L Alkaline Phosphatase 86 (34-104) U/L Total Protein 7.7 (6.0-8.3) gm/dl Albumin 4.2 (3.4-5.0) gm/dl Globulin 3.5 (2.5-4.0) gm/dl Albumin/Globulin Ratio 1.2 (0.9-2) Lipase 24 (11-82) U/L Urine Color Yellow Urine Appearance Clear (Clear) Urine pH 5.5 (4.5-7.5) Ur Specific [place] 1.022 (1.000-1.030) Urine Protein Trace H (Negative) Urine Glucose (UA) Negative (Negative) Urine Ketones Negative (Negative) Urine Blood 2+ H (Negative) Urine Nitrite Negative (Negative) Urine Bilirubin Negative (Negative) Urine Urobilinogen Negative (Negative) Ur Leukocyte Esterase 1+ H (Negative) Urine WBC (Auto) 10-30 H (0-5) /hpf Urine RBC (Auto) 0-4 (0-4) /hpf U Hyaline Cast (Auto) 1-5 (0-5) /lpf U Epithel Cells (Auto) 20-30 H (0-5) /lpf Urine Bacteria (Auto) Negative (Negative) SARS-CoV-2, RNA, NAAT (NEGATIVE) 12/31/22 01/01/23 Range/Units 23:48 00:10 WBC (4.8-10.8) K/ul RBC (4.20-5.40) M/uL Hgb (12.0-16.0) g/dl Hct (37.0-47.0) % MCV (80.0-100.0) fL MCH (25.0-34.0) pg MCHC (32.0-36.0) g/dL RDW Std Deviation (36.4-46.3) fL RDW Coeff of Samia (11.5-14.5) % Plt Count (130-400) K/uL MPV (9.4-12.4) fL Immature Gran % (Auto) % Neut % (Auto) % Lymph % (Auto) % [place] % (Auto) % Eos % (Auto) % Baso % (Auto) % Neut # (Auto) (1.40-6.50) K/uL Lymph # (Auto) (1.2-3.4) K/uL [place] # (Auto) (0.11-0.59) K/uL Eos # (Auto) (0-0.50) K/uL Baso # (Auto) (0-0.2) K/uL Immature Gran # (Auto) (0.01-0.20) K/uL Sodium (136-145) mmol/L Potassium (3.5-5.1) mmol/L Chloride (98-107) mmol/L Carbon Dioxide (21-32) mmol/L Anion Gap (3-11) BUN (6-23) mg/dl Creatinine (0.6-1.2) mg/dl Est Cr Clr Drug Dosing ml/min Est GFR ( Amer) ml/min Est GFR (Non-Af Amer) ml/min BUN/Creatinine Ratio (10-20) Glucose (70-99(Fasting)) mg/dl Calcium (8.6-10.3) mg/dl Magnesium Cancelled (1.7-2.4) mg/dl Total Bilirubin (0.2-1.0) mg/dl AST (13-39) U/L ALT (7-52) U/L Alkaline Phosphatase (34-104) U/L Total Protein (6.0-8.3) gm/dl Albumin (3.4-5.0) gm/dl Globulin (2.5-4.0) gm/dl Albumin/Globulin Ratio (0.9-2) Lipase (11-82) U/L Urine Color Urine Appearance (Clear) Urine pH (4.5-7.5) Ur Specific [place] (1.000-1.030) Urine Protein (Negative) Urine Glucose (UA) (Negative) Urine Ketones (Negative) Urine Blood (Negative) Urine Nitrite (Negative) Urine Bilirubin (Negative) Urine Urobilinogen (Negative) Ur Leukocyte Esterase (Negative) Urine WBC (Auto) (0-5) /hpf Urine RBC (Auto) (0-4) /hpf U Hyaline Cast (Auto) (0-5) /lpf U Epithel Cells (Auto) (0-5) /lpf Urine Bacteria (Auto) (Negative) SARS-CoV-2, RNA, NAAT NEGATIVE (NEGATIVE) Administered Medications Promethazine HCl 12.5 mg/ (Sodium Chloride) 50.5 mls @ 202 mls/hr IV Q6H PRN PRN Reason: Nausea And Vomiting Stop: 01/31/23 00:20 Last Admin: 01/01/23 01:20 Dose: 202 mls/hr Documented By: HUY Discontinued Medications Hydralazine HCl (Hydralazine Hcl 20 Mg/Ml Vial) 5 mg IV NOW ONE Stop: 12/31/22 23:36 Last Admin: 01/01/23 00:04 Dose: 5 mg Documented By: HUY Sodium Chloride (Nss 1000ml) 1,000 mls @ 999 mls/hr IV .Q1H1M STA Stop: 12/31/22 21:42 Last Infusion: 12/31/22 22:13 Dose: 0 mls/hr Documented By: JOSE ROBERTO Admin: 12/31/22 20:48 Dose: 999 mls/hr Documented By: JOSE ROBERTO Sodium Chloride (Nss 1000ml) 2,000 mls @ 999 mls/hr IV .Q2H1M ONE Stop: 01/01/23 00:06 Last Admin: 12/31/22 22:17 Dose: 999 mls/hr Documented By: JOSE ROBERTO Ioversol (Optiray 320 100ml) 81 ml IV ONCE ONE Stop: 12/31/22 22:28 Last Admin: 12/31/22 22:27 Dose: 81 ml Documented By: DARRELL Morphine Sulfate (Morphine Sulfate 4 Mg/Ml 1 Ml Carp\Vial) 4 mg IV NOW STA Stop: 12/31/22 22:07 Last Admin: 12/31/22 22:17 Dose: 4 mg Documented By: JOSE ROBERTO Morphine Sulfate (Morphine Sulfate 10 Mg/Ml Carp/Vial) 6 mg IV NOW STA Stop: 12/31/22 23:21 Last Admin: 01/01/23 00:00 Dose: 6 mg Documented By: HUY Ondansetron HCl (Ondansetron Inj 2 Mg/Ml 2 Ml Vial) 4 mg IV NOW STA Stop: 12/31/22 22:07 Last Admin: 12/31/22 22:17 Dose: 4 mg Documented By: JOSE ROBERTO Promethazine HCl (Promethazine 12.5 Mg/50.5 Ml Nss) Confirm Administered Dose 12.5 mg IV .STK-MED ONE Stop: 01/01/23 00:56 Last Admin: 01/01/23 01:17 Dose: Not Given Documented By: HUY Imaging Data Radiologist's Impression: Abdomen/Pelvis CT 12/31/22 22:02 Exam(s): CT ABDOMEN + PELVIS With Contrast IV Amt: 81ml EXAM: CT Abdomen and Pelvis With Intravenous Contrast CLINICAL HISTORY: Right mid abdominal pain. TECHNIQUE: Axial computed tomography images of the abdomen and pelvis with intravenous contrast. CTDI is 15.9 mGy and DLP is 961.01 mGy-cm. Automated exposure control was utilized for the study. A dose lowering technique was utilized adhering to the principles of ALARA. CONTRAST: Patient received 81ml of IV contrast COMPARISON: 10/10/2020 FINDINGS: Lung bases: Unremarkable. No mass. No consolidation. ABDOMEN: Liver: Unremarkable. No mass. Gallbladder and bile ducts: There are 2 gallstones noted in the gallbladder, not appreciably altered from the previous examination, measuring up to 14 mm. The gallbladder is distended without gallbladder wall thickening. No biliary dilatation. Pancreas: Unremarkable. No mass. No ductal dilation. Spleen: Unremarkable. No splenomegaly. Adrenals: Unremarkable. No mass. Kidneys and ureters: Unremarkable. No solid mass. No hydronephrosis. Stomach and bowel: There are new abnormal distended small bowel loops in the mid abdomen with surrounding mesenteric fat stranding and retained fecal appearing material distally adjacent to an apparent transition point in the anterior abdomen. The transition point is noted immediately adjacent to the postsurgical changes (series 302; images 20-31). Postsurgical changes consistent with right hemicolectomy, stable from the previous examination. The remaining left colon is decompressed without significant stool burden. PELVIS: Appendix: Surgically absent. Bladder: Unremarkable. No mass. Reproductive: Unremarkable as visualized. ABDOMEN and PELVIS: Intraperitoneal space: Unremarkable. No free air. No significant fluid collection. Bones/joints: No acute fracture. No dislocation. Soft tissues: Unremarkable. Vasculature: Unremarkable. No abdominal aortic aneurysm. Lymph nodes: Unremarkable. No enlarged lymph nodes. IMPRESSION: There are new abnormal distended small bowel loops in the mid abdomen with surrounding mesenteric fat stranding and retained fecal appearing material distally adjacent to an apparent transition point in the anterior abdomen. The transition point is noted immediately adjacent to the postsurgical changes (series 302; images 20-31). Findings are most consistent with at least a developing partial small bowel obstruction. No pneumoperitoneum. Electronically signed by: Lester Prieto MD 12/31/22 22:51 PM Discharge Plan Visit Data Chief Complaint: Abdominal Pain Stated Complaint: ABDOMINAL PAIN, HX OF GI ISSUES ED Provider: Joseph Montoya Discharge Problem: SBO (small bowel obstruction), Abdominal pain Forms Stand Alone Forms: [facility] Prescriptions Prescriptions: No Action multivitamin Tablet 1 tab PO DAILY diphenoxylate-atropine [Lomotil] 2.5-0.025 mg Tablet 1 tab PO DAILY PRN (Reason: Diarrhea) dextroamphetamine-amphetamine 5 mg tablet 5 mg PO BID Rx Instructions: TAKES QAM & NOON Saline Nasal 0.65 % Aerosol,[place] 2 spray INTRANASAL DIRECTED PRN (Reason: NASAL DRYNESS) fluoxetine 40 mg capsule 80 mg PO DAILY potassium chloride 10 mEq capsule, extended release 10 meq PO HS gabapentin 600 mg Tablet 600 mg PO HS omega-3 fatty acids [Fish Oil Concentrate] 1,000 mg Capsule 1,000 mg PO QPM lorazepam 0.5 mg tablet 0.5 mg PO TID pantoprazole 40 mg tablet,delayed release (DR/EC) 40 mg PO DAILY bupropion HCl 75 mg tablet 150 mg PO BID Rx Instructions: take in am & noon mercaptopurine 50 mg tablet 50 mg PO QAM gabapentin 300 mg capsule 300 mg PO BID Rx Instructions: Take in am & noon azelastine 137 mcg (0.1 %) aerosol,spray 2 spray INTRANASAL BID PRN (Reason: Nasal Congestion) fluticasone propionate 50 mcg/actuation spray,suspension 2 spray INTRANASAL DAILY calcium carbonate-vitamin D3 [Calcium 500 + D] 500 mg-5 mcg (200 unit) Tablet 1 tab PO HS melatonin 5 mg Tablet 5 mg PO HS Stelara 90 mg/mL Syringe 90 mg SUBCUT .[id number] Referrals Referrals: Giovany Correa DO [Primary Care Provider] -
[2022-12-31] MEDS ORDERED: OPTIRAY 320 100ml IV ONE (22:27)
[2022-12-31 22:32] LABS: Appearance Urine Clear (Clear); Bacteria Urine Automated Negative (Negative); Bilirubin Urine Negative (Negative); Blood Urine 2+ (Negative); Color Urine Yellow; Epithelial Cell Urine Auto 20-30 /lpf (0-5); Glucose Urine UA Negative (Negative); Ketones Urine Negative (Negative); Leukocyte Esterase Urine 1+ (Negative); Nitrite Urine Negative (Negative); Protein Urine Trace (Negative); RBC Urine Automated 0-4 /hpf (0-4); Specific Gravity Urine 1.022 (1.000-1.030); Urobilinogen Urine Negative (Negative); pH Urine 5.5 (4.5-7.5)
--- NOTE | 2022-12-31 22:51 | CT Scan Report ---
Exam(s): CT ABDOMEN + PELVIS With Contrast IV Amt: 81ml EXAM: CT Abdomen and Pelvis With Intravenous Contrast CLINICAL HISTORY: Right mid abdominal pain. TECHNIQUE: Axial computed tomography images of the abdomen and pelvis with intravenous contrast. CTDI is 15.9 mGy and DLP is 961.01 mGy-cm. Automated exposure control was utilized for the study. A dose lowering technique was utilized adhering to the principles of ALARA. CONTRAST: Patient received 81ml of IV contrast COMPARISON: 10/10/2020 FINDINGS: Lung bases: Unremarkable. No mass. No consolidation. ABDOMEN: Liver: Unremarkable. No mass. Gallbladder and bile ducts: There are 2 gallstones noted in the gallbladder, not appreciably altered from the previous examination, measuring up to 14 mm. The gallbladder is distended without gallbladder wall thickening. No biliary dilatation. Pancreas: Unremarkable. No mass. No ductal dilation. Spleen: Unremarkable. No splenomegaly. Adrenals: Unremarkable. No mass. Kidneys and ureters: Unremarkable. No solid mass. No hydronephrosis. Stomach and bowel: There are new abnormal distended small bowel loops in the mid abdomen with surrounding mesenteric fat stranding and retained fecal appearing material distally adjacent to an apparent transition point in the anterior abdomen. The transition point is noted immediately adjacent to the postsurgical changes (series 302; images 20-31). Postsurgical changes consistent with right hemicolectomy, stable from the previous examination. The remaining left colon is decompressed without significant stool burden. PELVIS: Appendix: Surgically absent. Bladder: Unremarkable. No mass. Reproductive: Unremarkable as visualized. ABDOMEN and PELVIS: Intraperitoneal space: Unremarkable. No free air. No significant fluid collection. Bones/joints: No acute fracture. No dislocation. Soft tissues: Unremarkable. Vasculature: Unremarkable. No abdominal aortic aneurysm. Lymph nodes: Unremarkable. No enlarged lymph nodes. IMPRESSION: There are new abnormal distended small bowel loops in the mid abdomen with surrounding mesenteric fat stranding and retained fecal appearing material distally adjacent to an apparent transition point in the anterior abdomen. The transition point is noted immediately adjacent to the postsurgical changes (series 302; images 20-31). Findings are most consistent with at least a developing partial small bowel obstruction. No pneumoperitoneum. Electronically signed by: Lester Prieto MD 12/31/22 22:51 PM
[2022-12-31] MEDS ORDERED: MoRPHine SULFATE 10 MG/ML CARP/VIAL IV STA (23:20)
[2022-12-31] MEDS ORDERED: hydrALAZINE HCL 20 MG/ML VIAL IV ONE (23:35)
--- NOTE | 2022-12-31 23:55 | Surgery Consultation ---
Date of Consultation December 31, 2022 Assessment & Plan (1) SBO (small bowel obstruction): I discussed with the treating emergency room physician and he is having the patient mid on the hospitalist service. From a surgical perspective we recommend the following: I suspect the patient's developing small bowel obstruction is either secondary to adhesions or potentially a Crohn's flare Analgesics should be provided Antiemetics to be provided Hydration measures with intravenous fluids to be employed Serial labs should be followed Would recommend making the patient n.p.o. I did discuss with the patient the possibility of requiring an NG tube. At the present time I feel we can hold off on this modality as her abdomen is not distended and she has not had any emesis. I did discuss with her that if her abdominal exam worsens or she develops emesis this modality will have to be revisited and she expressed her understanding. Consideration be given to advancing the patient's diet beginning with clear liquids when she has improvement of her clinical exam and improvement of her bowel function We will defer to the medical service or GI service if steroids should be implemented due to the possibility of a Crohn's flare We will continue to follow along with the patient is hospitalized with additional recommendations to follow based on her clinical course as it unfolds History of Present Illness Reason for Consultation: Developing small bowel History of Present Illness This is a 47-year-old female who presented to [facility] emergency department secondary to abdominal pain. The patient notes that she has a history of Crohn's disease and has had multiple abdominal surgeries. Patient cannot delineate the exact surgeries or dates but notes that she has had at least 4-5 abdominal surgeries with the most recent 3 surgeries being performed at [facility] in [place]. Patient could not remember the name of her colorectal surgeon but notes that she does not follow regularly with this physician. Secondary to her Crohn's the patient does take Stelara and she notes that her next dose is due next week. She says that she has been compliant with this medication and has not missed any doses. She follows locally with Dr. Rowley of [facility] gastroenterology for her Crohn's disease. The patient does report that she has had multiple colonoscopies and to the best of her knowledge the most recent colonoscopy did not show any concerning pathology. It is noteworthy to mention that the patient did require admission to [facility] in April 2020 secondary to a small bowel obstruction. This obstruction was felt to be secondary to a Crohn's flare and she was administered intravenous steroids. She also required NG tube placement at that time but was treated successfully in a conservative manner and did not require surgery while at [facility]. She presented to the emergency department today secondary to abdominal pain that began on 12/30/2022. The patient notes that the pain is primary located in the right side of her abdomen but does radiate across her abdomen in a bandlike fashion. She reports some minor nausea but has not had any emesis. She notes that yesterday she was having normal bowel movements without melena or bright red blood per rectum. She is notes that today on 12/31/2022 she has not had any bowel movements and since arrival to the emergency department has not passed any flatus. She notes she is urinating without difficulty. She notes that she has not had any palliative factors to her pain other than medicines administered in the emergency department and notes the pain is worse with certain movements. She denies any fevers, shakes, or chills Since arrival to the hospital the patient has had labs and imaging which I independent reviewed. CT scan of the abdomen and pelvis showed the patient had distended small bowel loops in the mid abdomen with some surrounding mesenteric fat stranding. There is an apparent transition point in the anterior abdomen which was immediately adjacent to some postsurgical changes. The interpreting radiologist felt that this represented a developing partial small bowel obstruction. There is no pneumoperitoneum noted. Labs included a CBC her white blood cell count was 11.6. Hemoglobin, hematocrit, and platelet count were all noted to be normal. Chemistry profile showed sodium, potassium, BUN, and creatinine were normal. There is no elevation of patient's LFTs or lipase. A urinalysis did show 1+ leukocyte Estrace and 10-30 white blood cells per high- power field. There is no bacteria or nitrates noted on the study. At the time of my interview the patient was resting in bed. She was in no d istress. Allergies Allergy/AdvReac Type Severity Reaction Status Date / Time No Known Allergies Allergy Verified 12/31/22 21:56 Home Medications Medication Instructions Recorded Confirmed Type azelastine 137 mcg (0.1 %) nasal 2 spray intranasal BID PRN Nasal 04/29/22 12/31/22 History spray aerosol Congestion bupropion HCl 75 mg tablet 150 mg PO BID 04/29/22 12/31/22 History calcium carbonate 500 mg-vitamin 1 tab PO HS 04/29/22 12/31/22 History D3 5 mcg (200 unit) tablet (Calcium 500 + D) fluoxetine 40 mg capsule 80 mg PO DAILY 04/29/22 12/31/22 History fluticasone propionate 50 2 spray intranasal DAILY 04/29/22 12/31/22 History mcg/actuation nasal spray,suspension gabapentin 300 mg capsule 300 mg PO BID 04/29/22 12/31/22 History gabapentin 600 mg tablet 600 mg PO HS 04/29/22 12/31/22 History lorazepam 0.5 mg tablet 0.5 mg PO TID 04/29/22 12/31/22 History melatonin 5 mg tablet 5 mg PO HS 04/29/22 12/31/22 History mercaptopurine 50 mg tablet 50 mg PO QAM 04/29/22 12/31/22 History omega-3 fatty acids 1,000 mg 1,000 mg PO QPM 04/29/22 12/31/22 History capsule pantoprazole 40 mg tablet,delayed 40 mg PO DAILY 04/29/22 12/31/22 History release potassium chloride 10 mEq 10 meq PO HS 04/29/22 12/31/22 History capsule,extended release ustekinumab 90 mg/mL subcutaneous 90 mg subcut .[id number] 04/29/22 12/31/22 History syringe (Stelara) dextroamphetamine-amphetamine 5 mg 5 mg PO BID 12/31/22 12/31/22 History tablet diphenoxylate-atropine 2.5 1 tab PO DAILY PRN Diarrhea 12/31/22 12/31/22 History mg-0.025 mg tablet (Lomotil) multivitamin 1 tab PO DAILY 12/31/22 12/31/22 History sodium chloride 0.65 % nasal spray 2 spray intranasal DIRECTED PRN 12/31/22 12/31/22 History aerosol (Saline Nasal) NASAL DRYNESS Patient History Medical History Abnormal CT scan, chest Acute hypoxemic respiratory failure Cholelithiasis Chronic maxillary sinusitis Crohn's disease Depression with anxiety History of Clostridioides difficile colitis History of deviated nasal septum History of erythema nodosum History of uveitis Prolonged QT interval Tobacco abuse Surgical History History of colectomy History of colonoscopy Last 07/2019 History of rhinoplasty Multiple nasal surgeries x3 Family History Father Heart disease TIA (transient ischemic attack) Mother Heart disease FH: diverticulitis Sister Crohn's disease Diabetes Social History Smoking Status: Current every day smoker Tobacco Type: Cigarettes Cigarettes Per Day: 10; Second Hand Exposure: No; Do You Dip or Chew Tobacco: No; Hx Alcohol Use: Yes Alcohol type: wine Alcohol type Comment: Once a month Hx Substance Use: Yes Last Used Substance Other:: 3 to 4 weeks ago Preferred Language: [place] Communication Ability: Effective Brand Designer Required: No Beliefs That Will Affect Care: None marital status: Single Current Living Situation: Other Current Living Situation Comment: room mate Feels Safe at Home: Yes Assistive Devices: Glasses Review of Systems Constitutional: no fever and no chills Ear, Nose, Mouth, Throat: no hearing loss Respiratory: no cough and no dyspnea Cardiovascular: no chest pain Gastrointestinal: as per Subjective / HPI Genitourinary: no dysuria Musculoskeletal: no back pain Integumentary: no rash Neurologic: no localized weakness Physical Exam Constitutional: WD/WN, vitals as above Eyes: no conjunctival abnormality ENMT: Ears: no hearing impairment and no external ear abnormality Mouth: no oropharynx abnormality Neck: trachea midline Respiratory: normal respiratory effort, lungs clear to auscultation Cardiovascular: Rate/Rhythm: regular rate and regular rhythm Vessels: dorsalis pedis pulses present and radial pulses present Gastrointestinal (Abdomen): Abdomen is soft, nonrigid, and nondistended. Bowel sounds are present. The patient did have diffuse tenderness noted throughout her abdomen but this was greatest in the periumbilical and right hypogastric regions. Rebound tenderness was absent at the time of my exam Musculoskeletal: No calf tender Skin: no rashes Neurologic: moves all extremities Psychiatric: A+Ox3, euthymic affect Results & Data Vital Signs (Past 12 Hours) Vital Signs Temp Pulse Pulse Resp BP BP Pulse Ox 12/31/22 22:00 76 16 174/93 H 97 12/31/22 21:44 76 15 147/80 H 96 12/31/22 20:41 37.0 C 82 20 151/87 H 93 12/31/22 21:17 78 12/31/22 20:34 37.0 C 91 H 22 159/78 H 95 O2 Del Method 12/31/22 22:00 Room Air 12/31/22 21:44 Room Air 12/31/22 20:41 Room Air 12/31/22 21:17 12/31/22 20:34 Room Air PG Care Time/CCT Total # of Minutes Spent Total Time Spent with Patient: Total time spent is greater than 50% in coordination of care (as documented) at patient's floor/unit and/or counseling patient: Coding Level of Care Code 85395 IN/OBS CONSULT LVL 5,80M Diagnoses SBO (small bowel obstruction) K56.609
[2023-01-01 00:09] LABS: Magnesium 1.8 mg/dl (1.7-2.4)
[2023-01-01] MEDS ORDERED: PROMETHAZINE HCL 12.5 MG in SODIUM CHLORIDE 0.9% 50 ML IV PRN (00:21)
[2023-01-01] MEDS ORDERED: D5W AND LACTATED RINGERS 1,000 ML IV ONE (00:35)
[2023-01-01] MEDS ORDERED: PROMETHAZINE 12.5 MG/50.5 ML NSS IV ONE (00:55)
--- NOTE | 2023-01-01 02:30 | History & Physical Report ---
Date of Service January 01, 2023 Assessment & Plan (1) SBO (small bowel obstruction): Plan: Crohn's disease status post surgery on immunosuppressive regimen Hypertensive urgency secondary above hx ADD, anxiety/mood disorder, at baseline ongoing tobacco abuse Medical telemetry given new elevation Hydralazine as needed SBP greater than 160 Analgesia Bowel rest General surgery consult Re: SBO (Patient already seen by provider at the ER.) Nicotine patch DVT prophylaxis. Lovenox subcu Full code Text document was generated using [employer] voice recognition software. It may contain grammatical or spelling errors. Kindly contact undersigned for clarification of any documentation item in question. History of Present Illness Chief Complaint: abdominal pain, vomiting Primary Care Provider: Giovany Correa DO History obtained from patient and records. Medical history significant for Crohn's disease status post surgery on immunosuppressive regimen, ADD, anxiety/mood disorder RLS, history of prolonged QTc, ongoing tobacco abuse. Few days history of achy right mid abdominal pain with watery diarrhea symptoms. No fever, no chills. No chest pain, no SOB. Some nausea without emesis. Symptoms somewhat worse with motion. Denies headache symptoms. Patient consulted ER. Highest SBP noted to be 180s. Medical History as above 2021 colonoscopy did not show evidence of active IBD. 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 Allergies Allergy/AdvReac Type Severity Reaction Status Date / Time No Known Allergies Allergy Verified 12/31/22 21:56 Home Medications Medication Instructions Recorded Confirmed Type azelastine 137 mcg (0.1 %) nasal 2 spray intranasal BID PRN Nasal 04/29/22 12/31/22 History spray aerosol Congestion bupropion HCl 75 mg tablet 150 mg PO BID 04/29/22 12/31/22 History calcium carbonate 500 mg-vitamin 1 tab PO HS 04/29/22 12/31/22 History D3 5 mcg (200 unit) tablet (Calcium 500 + D) fluoxetine 40 mg capsule 80 mg PO DAILY 04/29/22 12/31/22 History fluticasone propionate 50 2 spray intranasal DAILY 04/29/22 12/31/22 History mcg/actuation nasal spray,suspension gabapentin 300 mg capsule 300 mg PO BID 04/29/22 12/31/22 History gabapentin 600 mg tablet 600 mg PO HS 04/29/22 12/31/22 History lorazepam 0.5 mg tablet 0.5 mg PO TID 04/29/22 12/31/22 History melatonin 5 mg tablet 5 mg PO HS 04/29/22 12/31/22 History mercaptopurine 50 mg tablet 50 mg PO QAM 04/29/22 12/31/22 History omega-3 fatty acids 1,000 mg 1,000 mg PO QPM 04/29/22 12/31/22 History capsule pantoprazole 40 mg tablet,delayed 40 mg PO DAILY 04/29/22 12/31/22 History release potassium chloride 10 mEq 10 meq PO HS 04/29/22 12/31/22 History capsule,extended release ustekinumab 90 mg/mL subcutaneous 90 mg subcut .[id number] 04/29/22 12/31/22 History syringe (Stelara) dextroamphetamine-amphetamine 5 mg 5 mg PO BID 12/31/22 12/31/22 History tablet diphenoxylate-atropine 2.5 1 tab PO DAILY PRN Diarrhea 12/31/22 12/31/22 History mg-0.025 mg tablet (Lomotil) multivitamin 1 tab PO DAILY 12/31/22 12/31/22 History sodium chloride 0.65 % nasal spray 2 spray intranasal DIRECTED PRN 12/31/22 12/31/22 History aerosol (Saline Nasal) NASAL DRYNESS Past Med/Surg History Medical History Abnormal CT scan, chest Acute hypoxemic respiratory failure Cholelithiasis Chronic maxillary sinusitis Crohn's disease Depression with anxiety History of Clostridioides difficile colitis History of deviated nasal septum History of erythema nodosum History of uveitis Prolonged QT interval Tobacco abuse Surgical History History of colectomy History of colonoscopy Last 07/2019 History of rhinoplasty Multiple nasal surgeries x3 Family History Father Heart disease TIA (transient ischemic attack) Mother Heart disease FH: diverticulitis Sister Crohn's disease Diabetes Social History Smoking Status: Current every day smoker Tobacco Type: Cigarettes Cigarettes Per Day: 10; Second Hand Exposure: No; Do You Dip or Chew Tobacco: No; Tobacco Cessation Education Requested by Patient: No Hx Alcohol Use: Yes Alcohol type: wine Alcohol type Comment: Once a month Hx Substance Use: No Preferred Language: Vietnamese Communication Ability: Effective Supervisor Finishing Department Required: No Beliefs That Will Affect Care: None marital status: Single Current Living Situation: Alone Current Living Situation Comment: room mate Other Information That Helps Us Care for You: No Feels Safe at Home: Yes Safety Concerns: Feels Safe At This Time Assistive Devices: Denture - Upper and Glasses Review of Systems Review of Systems: As per HPI, all other systems reviewed and negative Physical Exam Physical Exam: GENERAL: Comfortable, slightly anxious, no respiratory distress SKIN: Normal color, warm HEENT: [place] palpebral conjunctivae, no ptosis, dry buccal mucosa NECK : Supple, no tenderness CHEST : CTA, no tenderness HEART : RRR, no obvious murmurs ABDOMEN: Some distention, right flank tenderness EXTREMITIES : No LE swelling/tenderness, no other conspicuous deformities noted NEUROLOGIC : Coherent, no facial asymmetry, no other gross focality Results & Data Results & Data Vital Signs (Past 12 Hours) Vital Signs Temp Pulse Pulse Resp BP BP Pulse Ox 01/01/23 02:00 65 13 01/01/23 02:00 136/87 01/01/23 01:30 64 15 95 01/01/23 01:30 164/82 H 01/01/23 01:00 72 13 93 01/01/23 01:00 146/83 H 01/01/23 00:30 71 16 94 01/01/23 00:30 157/91 H 01/01/23 01:15 71 01/01/23 00:00 75 15 96 01/01/23 00:00 184/91 H 12/31/22 23:30 70 17 12/31/22 23:30 171/84 H 12/31/22 23:00 77 17 96 12/31/22 23:00 173/94 H 12/31/22 22:00 76 16 174/93 H 97 12/31/22 21:44 76 15 147/80 H 96 12/31/22 20:41 37.0 C 82 20 151/87 H 93 12/31/22 21:17 78 12/31/22 20:34 37.0 C 91 H 22 159/78 H 95 O2 Del Method 01/01/23 02:00 01/01/23 02:00 01/01/23 01:30 01/01/23 01:30 01/01/23 01:00 01/01/23 01:00 01/01/23 00:30 01/01/23 00:30 01/01/23 01:15 01/01/23 00:00 01/01/23 00:00 12/31/22 23:30 12/31/22 23:30 12/31/22 23:00 12/31/22 23:00 12/31/22 22:00 Room Air 12/31/22 21:44 Room Air 12/31/22 20:41 Room Air 12/31/22 21:17 12/31/22 20:34 Room Air Laboratory Results Laboratory Results WBC 11.60 K/ul (4.8-10.8) H 12/31/22 20:38 RBC 4.73 M/uL (4.20-5.40) 12/31/22 20:38 Hgb 14.3 g/dl (12.0-16.0) 12/31/22 20:38 Hct 41.8 % (37.0-47.0) 12/31/22 20:38 MCV 88.4 fL (80.0-100.0) 12/31/22 20:38 MCH 30.2 pg (25.0-34.0) 12/31/22 20:38 MCHC 34.2 g/dL (32.0-36.0) 12/31/22 20:38 RDW Std Deviation 41.2 fL (36.4-46.3) 12/31/22 20:38 RDW Coeff of Samia 12.7 % (11.5-14.5) 12/31/22 20:38 Plt Count 375 K/uL (130-400) 12/31/22 20:38 MPV 8.7 fL (9.4-12.4) L 12/31/22 20:38 Immature Gran % (Auto) 0.3 % 12/31/22 20:38 Neut % (Auto) 69.8 % 12/31/22 20:38 Lymph % (Auto) 20.9 % 12/31/22 20:38 Taylor % (Auto) 7.0 % 12/31/22 20:38 Eos % (Auto) 1.4 % 12/31/22 20:38 Baso % (Auto) 0.6 % 12/31/22 20:38 Neut # (Auto) 8.09 K/uL (1.40-6.50) H 12/31/22 20:38 Lymph # (Auto) 2.43 K/uL (1.2-3.4) 12/31/22 20:38 Taylor # (Auto) 0.81 K/uL (0.11-0.59) H 12/31/22 20:38 Eos # (Auto) 0.16 K/uL (0-0.50) 12/31/22 20:38 Baso # (Auto) 0.07 K/uL (0-0.2) 12/31/22 20:38 Immature Gran # (Auto) 0.04 K/uL (0.01-0.20) 12/31/22 20:38 Sodium 139 mmol/L (136-145) 12/31/22 20:38 Potassium 3.9 mmol/L (3.5-5.1) 12/31/22 20:38 Chloride 104 mmol/L (98-107) 12/31/22 20:38 Carbon Dioxide 26 mmol/L (21-32) 12/31/22 20:38 Anion Gap 9 (3-11) 12/31/22 20:38 BUN 11 mg/dl (6-23) 12/31/22 20:38 Creatinine 0.74 mg/dl (0.6-1.2) 12/31/22 20:38 Est Cr Clr Drug Dosing 103.6 ml/min 12/31/22 20:38 Est GFR ( Amer) 110.3 ml/min 12/31/22 20:38 Est GFR (Non-Af Amer) 95.1 ml/min 12/31/22 20:38 BUN/Creatinine Ratio 14.9 (10-20) 12/31/22 20:38 Glucose 89 mg/dl (70-99(Fasting)) 12/31/22 20:38 Calcium 9.3 mg/dl (8.6-10.3) 12/31/22 20:38 Magnesium Cancelled 12/31/22 23:48 Total Bilirubin 0.3 mg/dl (0.2-1.0) 12/31/22 20:38 AST 21 U/L (13-39) 12/31/22 20:38 ALT 16 U/L (7-52) 12/31/22 20:38 Alkaline Phosphatase 86 U/L (34-104) 12/31/22 20:38 Total Protein 7.7 gm/dl (6.0-8.3) 12/31/22 20:38 Albumin 4.2 gm/dl (3.4-5.0) 12/31/22 20:38 Globulin 3.5 gm/dl (2.5-4.0) 12/31/22 20:38 Albumin/Globulin Ratio 1.2 (0.9-2) 12/31/22 20:38 Lipase 24 U/L (11-82) 12/31/22 20:38 Urine Color Yellow 12/31/22 22:08 Urine Appearance Clear (Clear) 12/31/22 22:08 Urine pH 5.5 (4.5-7.5) 12/31/22 22:08 Ur Specific [place] 1.022 (1.000-1.030) 12/31/22 22:08 Urine Protein Trace (Negative) H 12/31/22 22:08 Urine Glucose (UA) Negative (Negative) 12/31/22 22:08 Urine Ketones Negative (Negative) 12/31/22 22:08 Urine Blood 2+ (Negative) H 12/31/22 22:08 Urine Nitrite Negative (Negative) 12/31/22 22:08 Urine Bilirubin Negative (Negative) 12/31/22 22:08 Urine Urobilinogen Negative (Negative) 12/31/22 22:08 Ur Leukocyte Esterase 1+ (Negative) H 12/31/22 22:08 Urine WBC (Auto) 10-30 /hpf (0-5) H 12/31/22 22:08 Urine RBC (Auto) 0-4 /hpf (0-4) 12/31/22 22:08 U Hyaline Cast (Auto) 1-5 /lpf (0-5) 12/31/22 22:08 U Epithel Cells (Auto) 20-30 /lpf (0-5) H 12/31/22 22:08 Urine Bacteria (Auto) Negative (Negative) 12/31/22 22:08 SARS-CoV-2, RNA, NAAT NEGATIVE (NEGATIVE) 01/01/23 00:10 Impressions Abdomen/Pelvis CT 12/31/22 22:02 Exam(s): CT ABDOMEN + PELVIS With Contrast IV Amt: 81ml EXAM: CT Abdomen and Pelvis With Intravenous Contrast CLINICAL HISTORY: Right mid abdominal pain. TECHNIQUE: Axial computed tomography images of the abdomen and pelvis with intravenous contrast. CTDI is 15.9 mGy and DLP is 961.01 mGy-cm. Automated exposure control was utilized for the study. A dose lowering technique was utilized adhering to the principles of ALARA. CONTRAST: Patient received 81ml of IV contrast COMPARISON: 10/10/2020 FINDINGS: Lung bases: Unremarkable. No mass. No consolidation. ABDOMEN: Liver: Unremarkable. No mass. Gallbladder and bile ducts: There are 2 gallstones noted in the gallbladder, not appreciably altered from the previous examination, measuring up to 14 mm. The gallbladder is distended without gallbladder wall thickening. No biliary dilatation. Pancreas: Unremarkable. No mass. No ductal dilation. Spleen: Unremarkable. No splenomegaly. Adrenals: Unremarkable. No mass. Kidneys and ureters: Unremarkable. No solid mass. No hydronephrosis. Stomach and bowel: There are new abnormal distended small bowel loops in the mid abdomen with surrounding mesenteric fat stranding and retained fecal appearing material distally adjacent to an apparent transition point in the anterior abdomen. The transition point is noted immediately adjacent to the postsurgical changes (series 302; images 20-31). Postsurgical changes consistent with right hemicolectomy, stable from the previous examination. The remaining left colon is decompressed without significant stool burden. PELVIS: Appendix: Surgically absent. Bladder: Unremarkable. No mass. Reproductive: Unremarkable as visualized. ABDOMEN and PELVIS: Intraperitoneal space: Unremarkable. No free air. No significant fluid collection. Bones/joints: No acute fracture. No dislocation. Soft tissues: Unremarkable. Vasculature: Unremarkable. No abdominal aortic aneurysm. Lymph nodes: Unremarkable. No enlarged lymph nodes. IMPRESSION: There are new abnormal distended small bowel loops in the mid abdomen with surrounding mesenteric fat stranding and retained fecal appearing material distally adjacent to an apparent transition point in the anterior abdomen. The transition point is noted immediately adjacent to the postsurgical changes (series 302; images 20-31). Findings are most consistent with at least a developing partial small bowel obstruction. No pneumoperitoneum. Electronically signed by: Lester Prieto MD 12/31/22 22:51 PM Diagnostic Findings EKG as per my interpretation : Rate 70, NSR, normal axis, no ischemia, QTc 490
[2023-01-01] MEDS ORDERED: LORazepam 0.5 MG TAB PO STA (02:36)
[2023-01-01] MEDS ORDERED: GABAPENTIN 600 MG TAB PO STA (02:36)
[2023-01-01] MEDS ORDERED: AZELASTINE HCL 0.1% NASAL 200 SPRAYS/27,400 MCG BTL PRN (03:50)
[2023-01-01] MEDS ORDERED: SODIUM CHLORIDE 0.65% NA SOLN 45 ML (OCEAN) PRN (03:50)
[2023-01-01] MEDS: oxyCODONE HCL IR 5 MG TAB (IMMEDIATE RELEASE) PO PRN ×2 (04:04→22:23)
[2023-01-01] MEDS: NICOTINE 14 MG/24 HR PATCH TD SCH (06:15)
[2023-01-01] MEDS: MoRPHine SULFATE 2 MG/ML CARP IV PRN ×3 (06:15→18:01)
--- NOTE | 2023-01-01 06:33 | Surgery Progress Note ---
Date of Service January 01, 2023 Assessment & Plan (1) SBO (small bowel obstruction): Plan: She seems to be slightly better She does not need acute surgical intervention-if this were to be necessary would likely send her back to [place] for the colorectal surgeons This could be related to her ileocolic anastomosis with some ulcerations noted on her last colonoscopy Possibly recurrent disease Supportive care for now with GI evaluation Dr. Fco Barriga is covering over the weekend Admission and Anticipated Discharge Date Admission Date: January 01, 2023 Subjective Patient's vital signs are stable Some abdominal pain-received some p.o. pain medication Review of Systems 2 Review of Systems: All systems reviewed & are unremarkable except as noted in HPI & below Physical Exam Physical Exam: Her abdomen is soft but she does have some discomfort in the upper abdomen Decreased bowel sounds Constitutional: well nourished; no acute distress Eyes: + anicteric sclerae Respiratory: no respiratory distress Cardiovascular: Rate/Rhythm: regular rate Gastrointestinal (Abdomen): Inspection/Auscultation: abdomen not distended Musculoskeletal: Head/Neck/Chest: head atraumatic Skin: no rashes, warm and dry Neurologic: awake Psychiatric: Orientation: alert Results & Data Vital Signs (Past 12 Hours) Vital Signs Temp Pulse Pulse Resp BP BP Pulse Ox 01/01/23 04:52 01/01/23 04:52 36.7 C 68 18 159/82 H 96 01/01/23 03:30 01/01/23 03:30 67 14 91 01/01/23 03:30 145/82 H 01/01/23 03:00 65 12 01/01/23 03:00 146/85 H 01/01/23 02:30 68 15 93 01/01/23 02:30 167/84 H 01/01/23 02:00 65 13 01/01/23 02:00 136/87 01/01/23 01:30 64 15 95 01/01/23 01:30 164/82 H 01/01/23 01:00 72 13 93 01/01/23 01:00 146/83 H 01/01/23 00:30 71 16 94 01/01/23 00:30 157/91 H 01/01/23 01:15 71 01/01/23 00:00 75 15 96 01/01/23 00:00 184/91 H 12/31/22 23:30 70 17 12/31/22 23:30 171/84 H 12/31/22 23:00 77 17 96 12/31/22 23:00 173/94 H 12/31/22 22:00 76 16 174/93 H 97 12/31/22 21:44 76 15 147/80 H 96 12/31/22 20:41 37.0 C 82 20 151/87 H 93 12/31/22 21:17 78 12/31/22 20:34 37.0 C 91 H 22 159/78 H 95 O2 Del Method 01/01/23 04:52 Room Air 01/01/23 04:52 Room Air 01/01/23 03:30 Room Air 01/01/23 03:30 01/01/23 03:30 01/01/23 03:00 01/01/23 03:00 01/01/23 02:30 01/01/23 02:30 01/01/23 02:00 01/01/23 02:00 01/01/23 01:30 01/01/23 01:30 01/01/23 01:00 01/01/23 01:00 01/01/23 00:30 01/01/23 00:30 01/01/23 01:15 01/01/23 00:00 01/01/23 00:00 12/31/22 23:30 12/31/22 23:30 12/31/22 23:00 12/31/22 23:00 12/31/22 22:00 Room Air 12/31/22 21:44 Room Air 12/31/22 20:41 Room Air 12/31/22 21:17 12/31/22 20:34 Room Air PG Care Time/CCT Total # of Minutes Spent Total Time Spent with Patient: Total time spent is greater than 50% in coordination of care (as documented) at patient's floor/unit and/or counseling patient: Coding Level of Care Code 00643 SUB INP/OBS CARE 25MIN Diagnoses SBO (small bowel obstruction) K56.609
[2023-01-01] MEDS: AMPHETAMINE ASP/SULF/DEXTRAMPH 5 MG TAB PO SCH ×2 (08:29→12:24)
[2023-01-01 08:42] LABS: Basophils # (auto) 0.05 K/uL (0-0.2); Basophils % (auto) 0.7 %; Eosinophils # (auto) 0.16 K/uL (0-0.50); Eosinophils % (auto) 2.3 %; Hematocrit (blood only) 37.4 % (37.0-47.0); Hemoglobin 12.7 g/dl (12.0-16.0); Immature Granulocytes # (auto) 0.02 K/uL (0.01-0.20); Immature Granulocytes % (auto) 0.3 %; Mean Corpuscular Hemoglobin 29.5 pg (25.0-34.0); Mean Platelet Volume 8.9 fL (9.4-12.4); Monocytes # (auto) 0.66 K/uL (0.11-0.59); Monocytes % (auto) 9.6 %; Neutrophils # (auto) 3.56 K/uL (1.40-6.50); Neutrophils % (auto) 52.1 %; Platelet Count 304 K/uL (130-400); RDW Standard Deviation 40.8 fL (36.4-46.3); White Blood Count 6.85 K/ul (4.8-10.8)
[2023-01-01 08:56] LABS: BUN Creatinine Ratio 16.4 (10-20); Calcium 8.1 mg/dl (8.6-10.3); Creatinine Clr Calc Pharmacy 112.7 ml/min; Est GFR (African American) 119.6 ml/min; Est GFR (Non-African American) 103.2 ml/min; Magnesium 1.9 mg/dl (1.7-2.4); Phosphorus 3.8 mg/dl (2.5-4.9); Potassium 3.1 mmol/L (3.5-5.1)
[2023-01-01] MEDS: FLUTICASONE PROPIONATE NA SPR 16 GM BTL SCH (09:58)
[2023-01-01] MEDS: ENOXAPARIN INJ 40 MG/0.4 ML SYR SQ SCH (09:58)
[2023-01-01] MEDS: LORazepam 0.5 MG TAB PO SCH ×3 (09:58→20:31)
[2023-01-01] MEDS: GABAPENTIN 300 MG CAP PO SCH ×2 (09:59→13:19)
[2023-01-01] MEDS: buPROPion HCl 75 MG TABLET PO SCH ×2 (09:59→13:19)
[2023-01-01] MEDS: MULTIVITAMIN TAB PO SCH (09:59)
[2023-01-01] MEDS: FLUoxetine HCL 20 MG CAP PO SCH (09:59)
[2023-01-01] MEDS: PANTOprazole 40 MG TAB PO SCH (09:59)
[2023-01-01] MEDS: MERCAPTOPURINE 50 MG TAB PO SCH (09:59)
[2023-01-01] MEDS: ACETAMINOPHEN 325 MG TAB PO PRN (10:05)
--- NOTE | 2023-01-01 10:11 | Gastrointestinal Consultation ---
Date of Consultation January 01, 2023 Assessment & Plan (1) SBO (small bowel obstruction): (2) Crohn's disease: Pt is a 47 yo female w Crohn's disease s/p partial colectomy, currently on Setalara 90mg subQ [id number]; admitted for partial SBO. Clinically seems to be improving. Suspect SBO related to adhesions given prior bowel surgeries rather than Crohn's flare as her last Colonoscopy in June 2022 showed inactive disease. ? infectious colitis given hx of Cdiff and loose stools vs. med related as she was also taking antidiarrheal to control loose stools. - KUB today - Bowel rest now; If resolving partial SBO, will start CL diet - Check stool cx and Cdiff - Encourage OOB, ambulation, keep K >4, avoid narcotics - MRE once SBO resolved (can be done in OP setting) - Will arrange f/u after DC with Dr. Rowley who usually manages pt's Crohns - Surgery following Supervising Physician Co-Signing Physician Notes I performed a history and physical examination of the patient today, including specifically on physical exam - soft abdomen. I have discussed the patient's management with the advanced practitioner. Please refer to the nurse practitioner's note for the documented findings and plan of care. SBO likely from adhesions rather than Crohn's disease as she was in deep clinical and endoscopic recession. Management per general surgery. No need for steroids. Clear liquid as she is passing flatus with no vomiting. Recall GI if needed. History of Present Illness Reason for Consultation: Crohn's, partial SBO Requesting Physician: Dr. Mingo Jaquez Attending Physician: Dr. Gloria Kyle History of Present Illness Pt is a 47 yo female w hx of GERD, IBS, depression, RLS, ileocolonic Crohn's disease complicated by abscess formation, perianal disease, s/p partial colectomy, recurrent SBO, Cdiff infection who presented w co RLQ abd pain and watery stools for a few days. Denies any fever, chills. Did have nausea and vomiting wo hematemesis or coffee ground emesis. She was taking Lomotil for loose stools but ran out of Rx "for a while", and had been taking Imodium from OTC up to 2 tabs daily. Last BM was 2 days ago. No rectal bleeding. Labs reviewed - no leukocytosis, H/H stable, K low at 3.1, renal and liver functions normal, lipase normal. ESR and CRP up but seems to be at baseline. CT abd/pelvis w distended small bowel loops, w surrounding mesenteric fat stranding, retained fecal material distally adjacent to apparent transition point in the anterior abdomen, adjacent to post surgical changes consistent with developing partial SBO. No pneumoperitoneum seen. This AM she is passing flatus, less RLQ abd pain, no n/v. No BMs yet. Currently she is on Stelara [id number], next dose is next Wednesday. She denies missing any doses + tobacco use, denies ETOH, marijuana, NSAIDs. Last colonoscopy 2021 - Crohn's in remission Allergies Allergy/AdvReac Type Severity Reaction Status Date / Time No Known Allergies Allergy Verified 12/31/22 21:56 Home Medications Medication Instructions Recorded Confirmed Type azelastine 137 mcg (0.1 %) nasal 2 spray intranasal BID PRN Nasal 04/29/22 12/31/22 History spray aerosol Congestion bupropion HCl 75 mg tablet 150 mg PO BID 04/29/22 12/31/22 History calcium carbonate 500 mg-vitamin 1 tab PO HS 04/29/22 12/31/22 History D3 5 mcg (200 unit) tablet (Calcium 500 + D) fluoxetine 40 mg capsule 80 mg PO DAILY 04/29/22 12/31/22 History fluticasone propionate 50 2 spray intranasal DAILY 04/29/22 12/31/22 History mcg/actuation nasal spray,suspension gabapentin 300 mg capsule 300 mg PO BID 04/29/22 12/31/22 History gabapentin 600 mg tablet 600 mg PO HS 04/29/22 12/31/22 History lorazepam 0.5 mg tablet 0.5 mg PO TID 04/29/22 12/31/22 History melatonin 5 mg tablet 5 mg PO HS 04/29/22 12/31/22 History mercaptopurine 50 mg tablet 50 mg PO QAM 04/29/22 12/31/22 History omega-3 fatty acids 1,000 mg 1,000 mg PO QPM 04/29/22 12/31/22 History capsule pantoprazole 40 mg tablet,delayed 40 mg PO DAILY 04/29/22 12/31/22 History release potassium chloride 10 mEq 10 meq PO HS 04/29/22 12/31/22 History capsule,extended release ustekinumab 90 mg/mL subcutaneous 90 mg subcut .[id number] 04/29/22 12/31/22 History syringe (Stelara) dextroamphetamine-amphetamine 5 mg 5 mg PO BID 12/31/22 12/31/22 History tablet diphenoxylate-atropine 2.5 1 tab PO DAILY PRN Diarrhea 12/31/22 12/31/22 History mg-0.025 mg tablet (Lomotil) multivitamin 1 tab PO DAILY 12/31/22 12/31/22 History sodium chloride 0.65 % nasal spray 2 spray intranasal DIRECTED PRN 12/31/22 12/31/22 History aerosol (Saline Nasal) NASAL DRYNESS Patient History Medical History Abnormal CT scan, chest Acute hypoxemic respiratory failure Cholelithiasis Chronic maxillary sinusitis Crohn's disease Depression with anxiety History of Clostridioides difficile colitis History of deviated nasal septum History of erythema nodosum History of uveitis Prolonged QT interval Tobacco abuse Surgical History History of colectomy History of colonoscopy Last 07/2019 History of rhinoplasty Multiple nasal surgeries x3 Family History Father Heart disease TIA (transient ischemic attack) Mother Heart disease FH: diverticulitis Sister Crohn's disease Diabetes Social History Smoking Status: Current every day smoker Tobacco Type: Cigarettes Cigarettes Per Day: 10; Second Hand Exposure: No; Do You Dip or Chew Tobacco: No; Tobacco Cessation Education Requested by Patient: No Hx Alcohol Use: Yes Alcohol type: wine Alcohol type Comment: Once a month Hx Substance Use: No Preferred Language: Bulgarian Communication Ability: Effective Hook[place] Required: No Beliefs That Will Affect Care: None marital status: Single Current Living Situation: Alone Current Living Situation Comment: room mate Other Information That Helps Us Care for You: No Feels Safe at Home: Yes Safety Concerns: Feels Safe At This Time Assistive Devices: Denture - Upper and Glasses Review of Systems Review of Systems: All systems reviewed & are unremarkable except as noted in HPI & below Physical Exam Constitutional: WD/WN, vitals as above well groomed and cooperative Eyes: PERRL, conjunctivae normal, anicteric sclerae ENMT: external ear and nose normal, oropharynx normal Respiratory: normal respiratory effort, lungs clear to auscultation Cardiovascular: RRR, no murmur, no edema Gastrointestinal (Abdomen): Hypoactive BS, soft, TTP RLQ Skin: no rashes, warm and dry no jaundice Psychiatric: A+Ox3, euthymic affect Lymphatic: no lymphedema Results & Data Vital Signs (Past 12 Hours) Vital Signs Temp Pulse Pulse Pulse Resp BP BP 01/01/23 08:19 36.5 C 66 16 119/64 01/01/23 07:49 68 01/01/23 04:52 01/01/23 04:52 36.7 C 68 18 159/82 H 01/01/23 03:30 01/01/23 03:30 67 14 01/01/23 03:30 145/82 H 01/01/23 03:00 65 12 01/01/23 03:00 146/85 H 01/01/23 02:30 68 15 01/01/23 02:30 167/84 H 01/01/23 02:00 65 13 01/01/23 02:00 136/87 01/01/23 01:30 64 15 01/01/23 01:30 164/82 H 01/01/23 01:00 72 13 01/01/23 01:00 146/83 H 01/01/23 00:30 71 16 01/01/23 00:30 157/91 H 01/01/23 01:15 71 01/01/23 00:00 75 15 01/01/23 00:00 184/91 H 12/31/22 23:30 70 17 12/31/22 23:30 171/84 H 12/31/22 23:00 77 17 12/31/22 23:00 173/94 H Pulse Ox O2 Del Method 01/01/23 08:19 92 Room Air 01/01/23 07:49 01/01/23 04:52 Room Air 01/01/23 04:52 96 Room Air 01/01/23 03:30 Room Air 01/01/23 03:30 91 01/01/23 03:30 01/01/23 03:00 01/01/23 03:00 01/01/23 02:30 93 01/01/23 02:30 01/01/23 02:00 01/01/23 02:00 01/01/23 01:30 95 01/01/23 01:30 01/01/23 01:00 93 01/01/23 01:00 01/01/23 00:30 94 01/01/23 00:30 01/01/23 01:15 01/01/23 00:00 96 01/01/23 00:00 12/31/22 23:30 12/31/22 23:30 12/31/22 23:00 96 12/31/22 23:00
--- NOTE | 2023-01-01 10:38 | XRay Report ---
KUB HISTORY: Acute abdominal pain with reported small bowel obstruction eval partial sbo COMPARISON: CT abdomen and pelvis 12/31/2022 FINDINGS: There is persistent air-filled dilated loops of small bowel which appear unchanged from the prior study. Contrast noted within the urinary bladder lumen. Cholelithiasis. No renal calculi. No ureteral calculi. No pneumoperitoneum or pneumatosis. No fracture. IMPRESSION: Unchanged appearance of the persistent small bowel obstruction. ACT 112: Negative or not required by law. The above report was generated using voice recognition software. It may contain grammatical, syntax o r spelling errors. Electronically signed by: Torey Lindsay M.D. 01/01/2023 10:36 AM
--- NOTE | 2023-01-01 14:04 | Communication Note ---
Date of Service: January 01, 2023 Patient seen and examined at bedside. She reports that her abdominal pain has improved compared to admission She reports that her appetite is slightly better and would like to try clear liquid diet KUB shows persistent small bowel obstruction. Continue conservative management with IV hydration. Will give trial of clear liquid diet. If patient is unable to tolerate; will discontinue.
[2023-01-01 17:24] LABS: Adenovirus F 40/41 PCR Not Detected (NotDetected); Astrovirus PCR Not Detected (NotDetected); Campylobacter PCR Not Detected (NotDetected); Cryptosporidium PCR Not Detected (NotDetected); Cyclospora cayetanensis PCR Not Detected (NotDetected); Entamoeba histolytica PCR Not Detected (NotDetected); Enteroaggregative E.coli(EAEC) Not Detected (NotDetected); Enteropathogenic E.coli (EPEC) Not Detected (NotDetected); Enterotoxigenic E.coli (ETEC) Not Detected (NotDetected); Giardia lamblia PCR Not Detected (NotDetected); Norovirus GI/GII PCR Not Detected (NotDetected); Plesiomonas shigelloides PCR Not Detected (NotDetected); Rotavirus A PCR Not Detected (NotDetected); Salmonella PCR Not Detected (NotDetected); Sapovirus PCR Not Detected (NotDetected); Shiga-like Toxin E.coli (STEC) Not Detected (NotDetected); Shigella/Enteroinvasive E.coli Not Detected (NotDetected); Vibrio cholerae PCR Not Detected (NotDetected); Vibrio species PCR Not Detected (NotDetected); Yersinia enterocolitica PCR Not Detected (NotDetected)
[2023-01-01] MEDS: HYDROCORTISONE 1% CRM 30 GM TUBE EXT SCH (20:31)
[2023-01-01] MEDS: GABAPENTIN 600 MG TAB PO SCH (20:33)
[2023-01-01] MEDS: MELATONIN 3 MG TAB PO SCH (20:33)
[2023-01-02] MEDS: MoRPHine SULFATE 2 MG/ML CARP IV PRN ×4 (00:44→22:16)
[2023-01-02] MEDS: oxyCODONE HCL IR 5 MG TAB (IMMEDIATE RELEASE) PO PRN ×3 (03:56→20:32)
--- NOTE | 2023-01-02 06:23 | Electrocardiogram Report ---
Test Reason : Blood Pressure : / mmHG Vent. Rate : 070 BPM Atrial Rate : 070 BPM P-R Int : 134 ms QRS Dur : 092 ms QT Int : 454 ms P-R-T Axes : 060 007 048 degrees QTc Int : 490 ms Normal sinus rhythm Prolonged QT Abnormal ECG When compared with ECG of 29-APR-2022 16:05, No significant change was found Confirmed by Hemanth Wiseman ([id number]) on 01/02/2023 6:23:38 AM Referred By: REFERRED SELF Confirmed By:Hemanth Wiseman
[2023-01-02 06:57] LABS: Albumin Globulin Ratio 1.2 (0.9-2); Albumin Level 3.7 gm/dl (3.4-5.0); BUN Creatinine Ratio 11.4 (10-20); Bilirubin,Total 0.4 mg/dl (0.2-1.0); Calcium 8.9 mg/dl (8.6-10.3); Creatinine Clr Calc Pharmacy 106.7 ml/min; Est GFR (African American) 117.9 ml/min; Est GFR (Non-African American) 101.7 ml/min; Potassium 3.2 mmol/L (3.5-5.1); Total Protein 6.7 gm/dl (6.0-8.3)
[2023-01-02 07:01] LABS: Basophils # (auto) 0.05 K/uL (0-0.2); Basophils % (auto) 0.7 %; Eosinophils # (auto) 0.12 K/uL (0-0.50); Eosinophils % (auto) 1.7 %; Hemoglobin 12.8 g/dl (12.0-16.0); Immature Granulocytes # (auto) 0.02 K/uL (0.01-0.20); Immature Granulocytes % (auto) 0.3 %; Lymphocytes # (auto) 1.74 K/uL (1.2-3.4); Lymphocytes % (auto) 25.1 %; Mean Corpuscular Hemoglobin 29.8 pg (25.0-34.0); Mean Corpuscular Hgb Conc 33.7 g/dL (32.0-36.0); Mean Corpuscular Volume 88.6 fL (80.0-100.0); Mean Platelet Volume 9.1 fL (9.4-12.4); Monocytes % (auto) 7.2 %; Neutrophils # (auto) 4.49 K/uL (1.40-6.50); Platelet Count 309 K/uL (130-400); RDW Coefficient of Variation 12.8 % (11.5-14.5); RDW Standard Deviation 41.3 fL (36.4-46.3); Red Blood Count 4.29 M/uL (4.20-5.40); White Blood Count 6.92 K/ul (4.8-10.8)
[2023-01-02] MEDS: buPROPion HCl 75 MG TABLET PO SCH ×2 (08:17→11:31)
[2023-01-02] MEDS: FLUoxetine HCL 20 MG CAP PO SCH (08:17)
[2023-01-02] MEDS: ENOXAPARIN INJ 40 MG/0.4 ML SYR SQ SCH (08:17)
[2023-01-02] MEDS: LORazepam 0.5 MG TAB PO SCH ×3 (08:19→20:31)
[2023-01-02] MEDS: AMPHETAMINE ASP/SULF/DEXTRAMPH 5 MG TAB PO SCH ×2 (08:19→11:31)
[2023-01-02] MEDS: FLUTICASONE PROPIONATE NA SPR 16 GM BTL SCH (08:19)
[2023-01-02] MEDS: HYDROCORTISONE 1% CRM 30 GM TUBE EXT SCH ×2 (08:19→20:31)
[2023-01-02] MEDS: GABAPENTIN 300 MG CAP PO SCH ×2 (08:19→13:08)
[2023-01-02] MEDS: NICOTINE 14 MG/24 HR PATCH TD SCH (08:20)
[2023-01-02] MEDS: MULTIVITAMIN TAB PO SCH (08:20)
[2023-01-02] MEDS: MERCAPTOPURINE 50 MG TAB PO SCH (08:23)
[2023-01-02] MEDS: PANTOprazole 40 MG TAB PO SCH (09:45)
--- NOTE | 2023-01-02 11:35 | Surgery Progress Note ---
Date of Service January 02, 2023 Assessment & Plan (1) SBO (small bowel obstruction): Plan: Continuing to improve She does not need acute surgical intervention-if this were to be necessary would likely send her to [place] for the colorectal surgeons This could be related to her ileocolic anastomosis with some ulcerations noted on her last colonoscopy Possibly recurrent disease Supportive care for now with GI evaluation Advance diet as tolerated We will follow along Admission and Anticipated Discharge Date Admission Date: January 01, 2023 Subjective Resting comfortably in bed. Still complains of some abdominal pain in the upper abdomen. Passing flatus and bowel movements. Tolerating clears. Physical Exam Physical Exam: AFVSS NAD, A&Ox3 abdomen is soft, TTP RUQ; some LUQ Results & Data Vital Signs (Past 12 Hours) Vital Signs Temp Pulse Pulse Pulse Resp BP Pulse Ox 01/02/23 08:06 36.8 C 70 18 150/80 H 94 01/02/23 07:57 67 01/02/23 03:43 36.6 C 68 18 124/75 94 O2 Del Method 01/02/23 08:06 Room Air 01/02/23 07:57 01/02/23 03:43 Room Air
--- NOTE | 2023-01-02 14:30 | Hospitalist Progress Note ---
Date of Service January 02, 2023 Assessment & Plan (1) SBO (small bowel obstruction): Plan: Medical history significant for Crohn's disease status post surgery on immunosuppressive regimen, History of multiple abdominal surgeries Right mid abdominal pain on admission CT abdomen and pelvis showed abnormal distended small bowel loops in mid abdomen with surrounding mesenteric fat stranding. Labs reviewed; no leukocytosis. Potassium3.2; repleted GI evaluated the patient; did not recommend steroids for now. Surgery on board; advance diet as tolerated Pain control Chronic conditions; ADDcontinue home meds Anxietycontinue bupropion, Ativan Chron's diseaseon Stelara every 8 weeks Full code Lovenox for DVT prophylaxis Dispositioncontinue inpatient monitor for SBO. Discharge in 1 to 2 days depending of upon resolution. Admission and Anticipated Discharge Date Admission Date: January 01, 2023 Subjective Patient seen and examined at bedside. She reports that her abdominal pain has slightly improved compared to admission. Passing gas. Review of Systems Review of Systems: All systems reviewed & are unremarkable except as noted in Subjective Physical Exam Physical Exam: Constitutional: WD/WN, vitals as above, NAD, sitting up in bed, pleasant, conversing easily Respiratory: normal respiratory effort, lungs clear to auscultation, no wheeze, rales, rhonchi. Normal insp/exp effort, no accessory muscle use Cardiovascular: RRR, no murmur, no edema Vessels: no JVD or carotid bruit Chest: normal inspection of chest Abdomen: Bowel sounds present. Right flank tenderness. Musculoskeletal: no cyanosis or clubbing, extremities motor strength 5/5 Skin: no rashes, warm and dry normal turgor Neurologic: PERRL, EOMI, accommodation nl, no face palsy, no dysarthria CN's II- XI intact bilaterally and moves all extremities Psychiatric: A+Ox3, euthymic affect Lymphatic: no cervical or axillary lymphadenopathy : deferred Results & Data Results & Data Vital Signs (Past 12 Hours) Vital Signs Temp Pulse Pulse Pulse Resp BP Pulse Ox 01/02/23 12:01 36.7 C 70 18 136/80 100 01/02/23 08:06 36.8 C 70 18 150/80 H 94 01/02/23 07:57 67 01/02/23 03:43 36.6 C 68 18 124/75 94 O2 Del Method 01/02/23 12:01 Room Air 01/02/23 08:06 Room Air 01/02/23 07:57 01/02/23 03:43 Room Air Laboratory Results Laboratory Results WBC 6.92 K/ul (4.8-10.8) 01/02/23 06:19 RBC 4.29 M/uL (4.20-5.40) 01/02/23 06:19 Hgb 12.8 g/dl (12.0-16.0) 01/02/23 06:19 Hct 38.0 % (37.0-47.0) 01/02/23 06:19 MCV 88.6 fL (80.0-100.0) 01/02/23 06:19 MCH 29.8 pg (25.0-34.0) 01/02/23 06:19 MCHC 33.7 g/dL (32.0-36.0) 01/02/23 06:19 RDW Std Deviation 41.3 fL (36.4-46.3) 01/02/23 06:19 RDW Coeff of Samia 12.8 % (11.5-14.5) 01/02/23 06:19 Plt Count 309 K/uL (130-400) 01/02/23 06:19 MPV 9.1 fL (9.4-12.4) L 01/02/23 06:19 Immature Gran % (Auto) 0.3 % 01/02/23 06:19 Neut % (Auto) 65.0 % 01/02/23 06:19 Lymph % (Auto) 25.1 % 01/02/23 06:19 Meagher % (Auto) 7.2 % 01/02/23 06:19 Eos % (Auto) 1.7 % 01/02/23 06:19 Baso % (Auto) 0.7 % 01/02/23 06:19 Neut # (Auto) 4.49 K/uL (1.40-6.50) 01/02/23 06:19 Lymph # (Auto) 1.74 K/uL (1.2-3.4) 01/02/23 06:19 Meagher # (Auto) 0.50 K/uL (0.11-0.59) 01/02/23 06:19 Eos # (Auto) 0.12 K/uL (0-0.50) 01/02/23 06:19 Baso # (Auto) 0.05 K/uL (0-0.2) 01/02/23 06:19 Immature Gran # (Auto) 0.02 K/uL (0.01-0.20) 01/02/23 06:19 ESR 31 mm/hr (0-20) H 01/01/23 08:17 Sodium 141 mmol/L (136-145) 01/02/23 06:19 Potassium 3.2 mmol/L (3.5-5.1) L 01/02/23 06:19 Chloride 104 mmol/L (98-107) 01/02/23 06:19 Carbon Dioxide 32 mmol/L (21-32) 01/02/23 06:19 Anion Gap 5 (3-11) 01/02/23 06:19 BUN 8 mg/dl (6-23) 01/02/23 06:19 Creatinine 0.70 mg/dl (0.6-1.2) 01/02/23 06:19 Est Cr Clr Drug Dosing 106.7 ml/min 01/02/23 06:19 Est GFR ( Amer) 117.9 ml/min 01/02/23 06:19 Est GFR (Non-Af Amer) 101.7 ml/min 01/02/23 06:19 BUN/Creatinine Ratio 11.4 (10-20) 01/02/23 06:19 Glucose 95 mg/dl (70-99(Fasting)) 01/02/23 06:19 Calcium 8.9 mg/dl (8.6-10.3) 01/02/23 06:19 Phosphorus 3.8 mg/dl (2.5-4.9) 01/01/23 08:17 Magnesium 1.9 mg/dl (1.7-2.4) 01/01/23 08:17 Total Bilirubin 0.4 mg/dl (0.2-1.0) 01/02/23 06:19 AST 17 U/L (13-39) 01/02/23 06:19 ALT 14 U/L (7-52) 01/02/23 06:19 Alkaline Phosphatase 67 U/L (34-104) 01/02/23 06:19 C-Reactive Protein 0.94 mg/dl (0-0.5) H 01/01/23 08:17 Total Protein 6.7 gm/dl (6.0-8.3) 01/02/23 06:19 Albumin 3.7 gm/dl (3.4-5.0) 01/02/23 06:19 Globulin 3.0 gm/dl (2.5-4.0) 01/02/23 06:19 Albumin/Globulin Ratio 1.2 (0.9-2) 01/02/23 06:19 Lipase 24 U/L (11-82) 12/31/22 20:38 Urine Color Yellow 12/31/22 22:08 Urine Appearance Clear (Clear) 12/31/22 22:08 Urine pH 5.5 (4.5-7.5) 12/31/22 22:08 Ur Specific [place] 1.022 (1.000-1.030) 12/31/22 22:08 Urine Protein Trace (Negative) H 12/31/22 22:08 Urine Glucose (UA) Negative (Negative) 12/31/22 22:08 Urine Ketones Negative (Negative) 12/31/22 22:08 Urine Blood 2+ (Negative) H 12/31/22 22:08 Urine Nitrite Negative (Negative) 12/31/22 22:08 Urine Bilirubin Negative (Negative) 12/31/22 22:08 Urine Urobilinogen Negative (Negative) 12/31/22 22:08 Ur Leukocyte Esterase 1+ (Negative) H 12/31/22 22:08 Urine WBC (Auto) 10-30 /hpf (0-5) H 12/31/22 22:08 Urine RBC (Auto) 0-4 /hpf (0-4) 12/31/22 22:08 U Hyaline Cast (Auto) 1-5 /lpf (0-5) 12/31/22 22:08 U Epithel Cells (Auto) 20-30 /lpf (0-5) H 12/31/22 22:08 Urine Bacteria (Auto) Negative (Negative) 12/31/22 22:08 Stl C. cayetanensis PCR Not Detected (NotDetected) 01/01/23 Unknown Stool Rotavirus A PCR Not Detected (NotDetected) 01/01/23 Unknown Stl Adenov F 40/41 PCR Not Detected (NotDetected) 01/01/23 Unknown Stool Astrovirus (PCR) Not Detected (NotDetected) 01/01/23 Unknown Stool Campylobacter PCR Not Detected (NotDetected) 01/01/23 Unknown Stl C. diff Tox B Gene Negative Cdiff Gene (Neg) 01/01/23 Unknown Stool Cryptosporidium PCR Not Detected (NotDetected) 01/01/23 Unknown Stl E.coli Shiga Tox PCR Not Detected (NotDetected) 01/01/23 Unknown Stl Enterotoxigenic E PCR Not Detected (NotDetected) 01/01/23 Unknown Stool EPEC (PCR) Not Detected (NotDetected) 01/01/23 Unknown Stool EAEC (PCR) Not Detected (NotDetected) 01/01/23 Unknown Stl E. histolytica PCR Not Detected (NotDetected) 01/01/23 Unknown Stool Giardia Lamblia PCR Not Detected (NotDetected) 01/01/23 Unknown Stool Salmonella PCR Not Detected (NotDetected) 01/01/23 Unknown Stool Sapovirus (PCR) Not Detected (NotDetected) 01/01/23 Unknown Stl P. shigelloides PCR Not Detected (NotDetected) 01/01/23 Unknown Stl Shigella/EIEC PCR Not Detected (NotDetected) 01/01/[address].enterocolitica PCR Not Detected (NotDetected) 01/01/23 Unknown Stool Vibrio (PCR) Not Detected (NotDetected) 01/01/23 Unknown Stl Vibrio cholerae PCR Not Detected (NotDetected) 01/01/23 Unknown Stl Norovirus GI/GII PCR Not Detected (NotDetected) 01/01/23 Unknown SARS-CoV-2, RNA, NAAT NEGATIVE (NEGATIVE) 01/01/23 00:10 Impressions Abdomen/Pelvis CT 12/31/22 22:02 Exam(s): CT ABDOMEN + PELVIS With Contrast IV Amt: 81ml EXAM: CT Abdomen and Pelvis With Intravenous Contrast CLINICAL HISTORY: Right mid abdominal pain. TECHNIQUE: Axial computed tomography images of the abdomen and pelvis with intravenous contrast. CTDI is 15.9 mGy and DLP is 961.01 mGy-cm. Automated exposure control was utilized for the study. A dose lowering technique was utilized adhering to the principles of ALARA. CONTRAST: Patient received 81ml of IV contrast COMPARISON: 10/10/2020 FINDINGS: Lung bases: Unremarkable. No mass. No consolidation. ABDOMEN: Liver: Unremarkable. No mass. Gallbladder and bile ducts: There are 2 gallstones noted in the gallbladder, not appreciably altered from the previous examination, measuring up to 14 mm. The gallbladder is distended without gallbladder wall thickening. No biliary dilatation. Pancreas: Unremarkable. No mass. No ductal dilation. Spleen: Unremarkable. No splenomegaly. Adrenals: Unremarkable. No mass. Kidneys and ureters: Unremarkable. No solid mass. No hydronephrosis. Stomach and bowel: There are new abnormal distended small bowel loops in the mid abdomen with surrounding mesenteric fat stranding and retained fecal appearing material distally adjacent to an apparent transition point in the anterior abdomen. The transition point is noted immediately adjacent to the postsurgical changes (series 302; images 20-31). Postsurgical changes consistent with right hemicolectomy, stable from the previous examination. The remaining left colon is decompressed without significant stool burden. PELVIS: Appendix: Surgically absent. Bladder: Unremarkable. No mass. Reproductive: Unremarkable as visualized. ABDOMEN and PELVIS: Intraperitoneal space: Unremarkable. No free air. No significant fluid collection. Bones/joints: No acute fracture. No dislocation. Soft tissues: Unremarkable. Vasculature: Unremarkable. No abdominal aortic aneurysm. Lymph nodes: Unremarkable. No enlarged lymph nodes. IMPRESSION: There are new abnormal distended small bowel loops in the mid abdomen with surrounding mesenteric fat stranding and retained fecal appearing material distally adjacent to an apparent transition point in the anterior abdomen. The transition point is noted immediately adjacent to the postsurgical changes (series 302; images 20-31). Findings are most consistent with at least a developing partial small bowel obstruction. No pneumoperitoneum. Electronically signed by: Lester Prieto MD 12/31/22 22:51 PM KUB X-Ray 01/01/23 09:09 KUB HISTORY: Acute abdominal pain with reported small bowel obstruction eval partial sbo COMPARISON: CT abdomen and pelvis 12/31/2022 FINDINGS: There is persistent air-filled dilated loops of small bowel which appear unchanged from the prior study. Contrast noted within the urinary bladder lumen. Cholelithiasis. No renal calculi. No ureteral calculi. No pneumoperitoneum or pneumatosis. No fracture. IMPRESSION: Unchanged appearance of the persistent small bowel obstruction. ACT 112: Negative or not required by law. The above report was generated using voice recognition software. It may contain grammatical, syntax or spelling errors. Electronically signed by: Torey Lindsay M.D. 01/01/2023 10:36 AM
[2023-01-02] MEDS: MAGNESIUM HYDROXIDE SUSP 30 ML UDC PO ONE ×2 (15:29→15:32)
[2023-01-02] MEDS: GABAPENTIN 600 MG TAB PO SCH (20:31)
[2023-01-02] MEDS: MELATONIN 3 MG TAB PO SCH (20:32)
[2023-01-03] MEDS: MoRPHine SULFATE 2 MG/ML CARP IV PRN ×5 (04:05→23:49)
[2023-01-03] MEDS: oxyCODONE HCL IR 5 MG TAB (IMMEDIATE RELEASE) PO PRN ×2 (05:43→22:39)
[2023-01-03] MEDS: ENOXAPARIN INJ 40 MG/0.4 ML SYR SQ SCH (08:15)
[2023-01-03] MEDS: buPROPion HCl 75 MG TABLET PO SCH ×2 (08:15→12:51)
[2023-01-03] MEDS: FLUTICASONE PROPIONATE NA SPR 16 GM BTL SCH (08:16)
[2023-01-03] MEDS: FLUoxetine HCL 20 MG CAP PO SCH (08:16)
[2023-01-03] MEDS: GABAPENTIN 300 MG CAP PO SCH ×2 (08:16→12:51)
[2023-01-03] MEDS: HYDROCORTISONE 1% CRM 30 GM TUBE EXT SCH ×2 (08:16→22:40)
[2023-01-03] MEDS: PANTOprazole 40 MG TAB PO SCH (08:17)
[2023-01-03] MEDS: NICOTINE 14 MG/24 HR PATCH TD SCH (08:17)
[2023-01-03] MEDS: MULTIVITAMIN TAB PO SCH (08:17)
[2023-01-03] MEDS: MERCAPTOPURINE 50 MG TAB PO SCH (08:17)
[2023-01-03] MEDS: AMPHETAMINE ASP/SULF/DEXTRAMPH 5 MG TAB PO SCH ×2 (08:21→12:54)
[2023-01-03] MEDS: ACETAMINOPHEN 325 MG TAB PO PRN (08:21)
[2023-01-03] MEDS: LORazepam 0.5 MG TAB PO SCH ×3 (08:21→22:39)
--- NOTE | 2023-01-03 09:48 | Surgery Progress Note ---
Date of Service January 03, 2023 Assessment & Plan (1) SBO (small bowel obstruction): (2) Cholelithiasis: Plan 47-year-old woman with Crohn's and resolving small bowel obstruction. She continues to have fairly significant pain, mostly centered in the right upper quadrant. I reviewed her CT scan, and it was noted that she had gallstones and a distended gallbladder, however without signs of acute cholecystitis. Her white count is 6, and she is afebrile. As her small bowel obstruction seems to be resolving, if her pain persists through tomorrow, she may benefit from dedicated right upper quadrant ultrasound to fully assess her gallbladder. We will continue to follow. Admission and Anticipated Discharge Date Admission Date: January 01, 2023 Subjective She seems to be doing somewhat better, however she continues to have fairly significant right upper quadrant pain and tenderness. She has had bowel movements and is passing flatus. Food intake does not seem to affect the pain. Physical Exam Physical Exam: AFVSS NAD, A&Ox3 abdomen is soft, TTP RUQ; some LUQ Results & Data Vital Signs (Past 12 Hours) Vital Signs Temp Pulse Pulse Resp BP Pulse Ox O2 Del Method 01/03/23 07:59 67 01/03/23 06:39 36.9 C 71 18 137/78 91 Room Air 01/03/23 03:51 36.8 C 89 16 128/76 93 Room Air 01/03/23 02:12 72 01/03/23 00:56 Room Air 01/02/23 23:28 36.8 C 74 18 139/81 94 Room Air
--- NOTE | 2023-01-03 14:35 | Ultrasound Report ---
US liver CLINICAL HISTORY: Rule out acute cholecystitis TECHNIQUE: Multiple real-time sonographic images of the right upper quadrant were obtained. Comparison: Comparison is made to CT abdomen pelvis 12/31/2022 FINDINGS: The liver is diffusely echogenic in appearance with poor ultrasound penetration, with normal contour, which is consistent with fatty infiltration. Liver appears enlarged measuring 16.2 cm. No focal mass lesions are seen. No intrahepatic ductal dilatation is seen. Nonmobile stones are seen in the ga llbladder. Gallbladder wall measures 3 mm or greater. A sonographic Arzola's sign was elicited by the client technologies analyst. The common duct measures 0.5 cm in diameter at the level of the hepatic artery. The visualized portions of the pancreas appear normal. The right kidney shows normal echogenicity, cortical thickness and renal contour. The right kidney sh ows no evidence of hydronephrosis or mass. No ascites or free fluid is seen in Stein's pouch. IMPRESSION: 1. Gallbladder wall thickening, nonmobile stones, and tenderness on exam compatible with acute darby cystitis. 2. Hepatic steatosis. ACT 112: Negative or not required by law. Electronically signed by: eLo Gimenez M.D. 01/03/2023 2:32 PM
--- NOTE | 2023-01-03 14:45 | Hospitalist Progress Note ---
Date of Service January 03, 2023 Assessment & Plan (1) Acute cholecystitis: (2) SBO (small bowel obstruction): Plan: Medical history significant for Crohn's disease status post surgery on immunosuppressive regimen, History of multiple abdominal surgeries Right mid abdominal pain on admission CT abdomen and pelvis showed abnormal distended small bowel loops in mid abdomen with surrounding mesenteric fat stranding. Distended gallbladder Labs reviewed; no leukocytosis. GI evaluated the patient; did not recommend steroids for now. Surgery on board; recommended right upper quadrant ultrasound for possible acute cholecystitis. Right upper quadrant ultrasound shows findings concerning for acute cholecystitis Discussed with surgery; recommend antibiotic for now. Started on ceftriaxone and Flagyl. Surgery to follow. N.p.o. from midnight for possible procedure. Pain control Chronic conditions; ADDcontinue home meds Anxietycontinue bupropion, Ativan Chron's diseaseon Stelara every 8 weeks Full code Lovenox for DVT prophylaxis Dispositionfrom home, likely DC in 1 to 2 days depending on clinical course. Admission and Anticipated Discharge Date Admission Date: January 01, 2023 Subjective Patient seen and examined at bedside. She continues to have right upper quadrant abdominal pain. She is tolerating diet well and having regular bowel movements. Afebrile. Review of Systems Review of Systems: All systems reviewed & are unremarkable except as noted in Subjective Physical Exam Physical Exam: Constitutional: WD/WN, vitals as above, NAD, sitting up in bed, pleasant, conversing easily Respiratory: normal respiratory effort, lungs clear to auscultation, no wheeze, rales, rhonchi. Normal insp/exp effort, no accessory muscle use Cardiovascular: RRR, no murmur, no edema Vessels: no JVD or carotid bruit Chest: normal inspection of chest Abdomen: Right upper quadrant tenderness present. Arzola sign positive. Musculoskeletal: no cyanosis or clubbing, extremities motor strength 5/5 Skin: no rashes, warm and dry normal turgor Neurologic: PERRL, EOMI, accommodation nl, no face palsy, no dysarthria CN's II- XI intact bilaterally and moves all extremities Psychiatric: A+Ox3, euthymic affect Lymphatic: no cervical or axillary lymphadenopathy : deferred Results & Data Results & Data Vital Signs (Past 12 Hours) Vital Signs Temp Pulse Pulse Resp BP Pulse Ox O2 Del Method 01/03/23 10:59 37.1 C 72 18 129/76 92 Room Air 01/03/23 07:59 67 01/03/23 06:39 36.9 C 71 18 137/78 91 Room Air 01/03/23 03:51 36.8 C 89 16 128/76 93 Room Air Laboratory Results Laboratory Results WBC 6.92 K/ul (4.8-10.8) 01/02/23 06:19 RBC 4.29 M/uL (4.20-5.40) 01/02/23 06:19 Hgb 12.8 g/dl (12.0-16.0) 01/02/23 06:19 Hct 38.0 % (37.0-47.0) 01/02/23 06:19 MCV 88.6 fL (80.0-100.0) 01/02/23 06:19 MCH 29.8 pg (25.0-34.0) 01/02/23 06:19 MCHC 33.7 g/dL (32.0-36.0) 01/02/23 06:19 RDW Std Deviation 41.3 fL (36.4-46.3) 01/02/23 06:19 RDW Coeff of Samia 12.8 % (11.5-14.5) 01/02/23 06:19 Plt Count 309 K/uL (130-400) 01/02/23 06:19 MPV 9.1 fL (9.4-12.4) L 01/02/23 06:19 Immature Gran % (Auto) 0.3 % 01/02/23 06:19 Neut % (Auto) 65.0 % 01/02/23 06:19 Lymph % (Auto) 25.1 % 01/02/23 06:19 Summers % (Auto) 7.2 % 01/02/23 06:19 Eos % (Auto) 1.7 % 01/02/23 06:19 Baso % (Auto) 0.7 % 01/02/23 06:19 Neut # (Auto) 4.49 K/uL (1.40-6.50) 01/02/23 06:19 Lymph # (Auto) 1.74 K/uL (1.2-3.4) 01/02/23 06:19 Summers # (Auto) 0.50 K/uL (0.11-0.59) 01/02/23 06:19 Eos # (Auto) 0.12 K/uL (0-0.50) 01/02/23 06:19 Baso # (Auto) 0.05 K/uL (0-0.2) 01/02/23 06:19 Immature Gran # (Auto) 0.02 K/uL (0.01-0.20) 01/02/23 06:19 ESR 31 mm/hr (0-20) H 01/01/23 08:17 Sodium 141 mmol/L (136-145) 01/02/23 06:19 Potassium 3.2 mmol/L (3.5-5.1) L 01/02/23 06:19 Chloride 104 mmol/L (98-107) 01/02/23 06:19 Carbon Dioxide 32 mmol/L (21-32) 01/02/23 06:19 Anion Gap 5 (3-11) 01/02/23 06:19 BUN 8 mg/dl (6-23) 01/02/23 06:19 Creatinine 0.70 mg/dl (0.6-1.2) 01/02/23 06:19 Est Cr Clr Drug Dosing 106.7 ml/min 01/02/23 06:19 Est GFR ( Amer) 117.9 ml/min 01/02/23 06:19 Est GFR (Non-Af Amer) 101.7 ml/min 01/02/23 06:19 BUN/Creatinine Ratio 11.4 (10-20) 01/02/23 06:19 Glucose 95 mg/dl (70-99(Fasting)) 01/02/23 06:19 Calcium 8.9 mg/dl (8.6-10.3) 01/02/23 06:19 Phosphorus 3.8 mg/dl (2.5-4.9) 01/01/23 08:17 Magnesium 1.9 mg/dl (1.7-2.4) 01/01/23 08:17 Total Bilirubin 0.4 mg/dl (0.2-1.0) 01/02/23 06:19 AST 17 U/L (13-39) 01/02/23 06:19 ALT 14 U/L (7-52) 01/02/23 06:19 Alkaline Phosphatase 67 U/L (34-104) 01/02/23 06:19 C-Reactive Protein 0.94 mg/dl (0-0.5) H 01/01/23 08:17 Total Protein 6.7 gm/dl (6.0-8.3) 01/02/23 06:19 Albumin 3.7 gm/dl (3.4-5.0) 01/02/23 06:19 Globulin 3.0 gm/dl (2.5-4.0) 01/02/23 06:19 Albumin/Globulin Ratio 1.2 (0.9-2) 01/02/23 06:19 Lipase 24 U/L (11-82) 12/31/22 20:38 Urine Color Yellow 12/31/22 22:08 Urine Appearance Clear (Clear) 12/31/22 22:08 Urine pH 5.5 (4.5-7.5) 12/31/22 22:08 Ur Specific [place] 1.022 (1.000-1.030) 12/31/22 22:08 Urine Protein Trace (Negative) H 12/31/22 22:08 Urine Glucose (UA) Negative (Negative) 12/31/22 22:08 Urine Ketones Negative (Negative) 12/31/22 22:08 Urine Blood 2+ (Negative) H 12/31/22 22:08 Urine Nitrite Negative (Negative) 12/31/22 22:08 Urine Bilirubin Negative (Negative) 12/31/22 22:08 Urine Urobilinogen Negative (Negative) 12/31/22 22:08 Ur Leukocyte Esterase 1+ (Negative) H 12/31/22 22:08 Urine WBC (Auto) 10-30 /hpf (0-5) H 12/31/22 22:08 Urine RBC (Auto) 0-4 /hpf (0-4) 12/31/22 22:08 U Hyaline Cast (Auto) 1-5 /lpf (0-5) 12/31/22 22:08 U Epithel Cells (Auto) 20-30 /lpf (0-5) H 12/31/22 22:08 Urine Bacteria (Auto) Negative (Negative) 12/31/22 22:08 Stl C. cayetanensis PCR Not Detected (NotDetected) 01/01/23 Unknown Stool Rotavirus A PCR Not Detected (NotDetected) 01/01/23 Unknown Stl Adenov F 40/41 PCR Not Detected (NotDetected) 01/01/23 Unknown Stool Astrovirus (PCR) Not Detected (NotDetected) 01/01/23 Unknown Stool Campylobacter PCR Not Detected (NotDetected) 01/01/23 Unknown Stl C. diff Tox B Gene Negative Cdiff Gene (Neg) 01/01/23 Unknown Stool Cryptosporidium PCR Not Detected (NotDetected) 01/01/23 Unknown Stl E.coli Shiga Tox PCR Not Detected (NotDetected) 01/01/23 Unknown Stl Enterotoxigenic E PCR Not Detected (NotDetected) 01/01/23 Unknown Stool EPEC (PCR) Not Detected (NotDetected) 01/01/23 Unknown Stool EAEC (PCR) Not Detected (NotDetected) 01/01/23 Unknown Stl E. histolytica PCR Not Detected (NotDetected) 01/01/23 Unknown Stool Giardia Lamblia PCR Not Detected (NotDetected) 01/01/23 Unknown Stool Salmonella PCR Not Detected (NotDetected) 01/01/23 Unknown Stool Sapovirus (PCR) Not Detected (NotDetected) 01/01/23 Unknown Stl P. shigelloides PCR Not Detected (NotDetected) 01/01/23 Unknown Stl Shigella/EIEC PCR Not Detected (NotDetected) 01/01/[address].enterocolitica PCR Not Detected (NotDetected) 01/01/23 Unknown Stool Vibrio (PCR) Not Detected (NotDetected) 01/01/23 Unknown Stl Vibrio cholerae PCR Not Detected (NotDetected) 01/01/23 Unknown Stl Norovirus GI/GII PCR Not Detected (NotDetected) 01/01/23 Unknown SARS-CoV-2, RNA, NAAT NEGATIVE (NEGATIVE) 01/01/23 00:10 Impressions Abdomen/Pelvis CT 12/31/22 22:02 Exam(s): CT ABDOMEN + PELVIS With Contrast IV Amt: 81ml EXAM: CT Abdomen and Pelvis With Intravenous Contrast CLINICAL HISTORY: Right mid abdominal pain. TECHNIQUE: Axial computed tomography images of the abdomen and pelvis with intravenous contrast. CTDI is 15.9 mGy and DLP is 961.01 mGy-cm. Automated exposure control was utilized for the study. A dose lowering technique was utilized adhering to the principles of ALARA. CONTRAST: Patient received 81ml of IV contrast COMPARISON: 10/10/2020 FINDINGS: Lung bases: Unremarkable. No mass. No consolidation. ABDOMEN: Liver: Unremarkable. No mass. Gallbladder and bile ducts: There are 2 gallstones noted in the gallbladder, not appreciably altered from the previous examination, measuring up to 14 mm. The gallbladder is distended without gallbladder wall thickening. No biliary dilatation. Pancreas: Unremarkable. No mass. No ductal dilation. Spleen: Unremarkable. No splenomegaly. Adrenals: Unremarkable. No mass. Kidneys and ureters: Unremarkable. No solid mass. No hydronephrosis. Stomach and bowel: There are new abnormal distended small bowel loops in the mid abdomen with surrounding mesenteric fat stranding and retained fecal appearing material distally adjacent to an apparent transition point in the anterior abdomen. The transition point is noted immediately adjacent to the postsurgical changes (series 302; images 20-31). Postsurgical changes consistent with right hemicolectomy, stable from the previous examination. The remaining left colon is decompressed without significant stool burden. PELVIS: Appendix: Surgically absent. Bladder: Unremarkable. No mass. Reproductive: Unremarkable as visualized. ABDOMEN and PELVIS: Intraperitoneal space: Unremarkable. No free air. No significant fluid collection. Bones/joints: No acute fracture. No dislocation. Soft tissues: Unremarkable. Vasculature: Unremarkable. No abdominal aortic aneurysm. Lymph nodes: Unremarkable. No enlarged lymph nodes. IMPRESSION: There are new abnormal distended small bowel loops in the mid abdomen with surrounding mesenteric fat stranding and retained fecal appearing material distally adjacent to an apparent transition point in the anterior abdomen. The transition point is noted immediately adjacent to the postsurgical changes (series 302; images 20-31). Findings are most consistent with at least a developing partial small bowel obstruction. No pneumoperitoneum. Electronically signed by: Lester Prieto MD 12/31/22 22:51 PM KUB X-Ray 01/01/23 09:09 KUB HISTORY: Acute abdominal pain with reported small bowel obstruction eval partial sbo COMPARISON: CT abdomen and pelvis 12/31/2022 FINDINGS: There is persistent air-filled dilated loops of small bowel which appear unchanged from the prior study. Contrast noted within the urinary bladder lumen. Cholelithiasis. No renal calculi. No ureteral calculi. No pneumoperitoneum or pneumatosis. No fracture. IMPRESSION: Unchanged appearance of the persistent small bowel obstruction. ACT 112: Negative or not required by law. The above report was generated using voice recognition software. It may contain grammatical, syntax or spelling errors. Electronically signed by: Torey Lindsay M.D. 01/01/2023 10:36 AM Liver Ultrasound 01/03/23 09:56 US liver CLINICAL HISTORY: Rule out acute cholecystitis TECHNIQUE: Multiple real-time sonographic images of the right upper quadrant were obtained. Comparison: Comparison is made to CT abdomen pelvis 12/31/2022 FINDINGS: The liver is diffusely echogenic in appearance with poor ultrasound penetration, with normal contour, which is consistent with fatty infiltration. Liver appears enlarged measuring 16.2 cm. No focal mass lesions are seen. No intrahepatic ductal dilatation is seen. Nonmobile stones are seen in the gallbladder. Gallb ladder wall measures 3 mm or greater. A sonographic Arzola's sign was elicited by the heavy rail train operator. The common duct measures 0.5 cm in diameter at the level of the hepatic artery. The visualized portions of the pancreas appear normal. The right kidney shows normal echogenicity, cortical thickness and renal contour. The right kidney shows no evidence of hydronephrosis or mass. No ascites or free fluid is seen in Stein's pouch. IMPRESSION: 1. Gallbladder wall thickening, nonmobile stones, and tenderness on exam compatible with acute cholecystitis. 2. Hepatic steatosis. ACT 112: Negative or not required by law. Electronically signed by: Leo Gimenez M.D. 01/03/2023 2:32 PM
[2023-01-03] MEDS: metroNIDAZOLE 500 MG/100 ML BAG IV SCH ×2 (15:18→22:40)
[2023-01-03] MEDS: cefTRIAXone SODIUM 2,000 MG in DEXTROSE 5% 50 ML IV SCH (15:18)
[2023-01-03] MEDS: MELATONIN 3 MG TAB PO SCH (22:39)
[2023-01-03] MEDS: GABAPENTIN 600 MG TAB PO SCH (22:41)
[2023-01-04] MEDS: oxyCODONE HCL IR 5 MG TAB (IMMEDIATE RELEASE) PO PRN ×3 (02:33→21:24)
[2023-01-04] MEDS: MoRPHine SULFATE 2 MG/ML CARP IV PRN ×5 (04:00→23:08)
[2023-01-04] MEDS ORDERED: KETOROLAC TROMETHAMINE 15 MG/ML VIAL IV ONE (04:26)
[2023-01-04] MEDS: metroNIDAZOLE 500 MG/100 ML BAG IV SCH ×3 (06:18→21:25)
--- NOTE | 2023-01-04 06:46 | Surgery Progress Note ---
Date of Service January 04, 2023 Assessment & Plan (1) Acute cholecystitis: Plan: Patient with recurrent right upper quadrant pain-now persistent Ultrasound shows a thickened gallbladder with multiple large stones in the neck of the gallbladder Plan is to proceed with laparoscopic/possible open cholecystectomy I discussed with the patient it may be challenging because of her prior surgery and adhesions To perform laparoscopically I do not feel that there is a better alternative with observation or cholecystostomy tube We will proceed with laparoscopic cholecystectomy later today continue antibiotics Admission and Anticipated Discharge Date Admission Date: January 01, 2023 Subjective See assessment and plan Results & Data Vital Signs (Past 12 Hours) Vital Signs Temp Pulse Pulse Resp BP Pulse Ox O2 Del Method 01/04/23 04:16 36.8 C 69 18 135/72 93 Room Air 01/04/23 02:59 84 01/04/23 00:13 Room Air 01/03/23 23:29 36.8 C 82 16 156/81 H 93 Room Air PG Care Time/CCT Total # of Minutes Spent Total Time Spent with Patient: Total time spent is greater than 50% in coordination of care (as documented) at patient's floor/unit and/or counseling patient: Coding Level of Care Code None Diagnoses Acute cholecystitis K81.0
[2023-01-04 08:06] LABS: Basophils # (auto) 0.04 K/uL (0-0.2); Basophils % (auto) 0.6 %; Eosinophils # (auto) 0.15 K/uL (0-0.50); Eosinophils % (auto) 2.3 %; Hematocrit (blood only) 36.4 % (37.0-47.0); Hemoglobin 12.5 g/dl (12.0-16.0); Immature Granulocytes # (auto) 0.02 K/uL (0.01-0.20); Immature Granulocytes % (auto) 0.3 %; Lymphocytes # (auto) 1.81 K/uL (1.2-3.4); Lymphocytes % (auto) 27.9 %; Mean Corpuscular Hemoglobin 29.9 pg (25.0-34.0); Mean Corpuscular Hgb Conc 34.3 g/dL (32.0-36.0); Mean Corpuscular Volume 87.1 fL (80.0-100.0); Mean Platelet Volume 8.9 fL (9.4-12.4); Monocytes # (auto) 0.55 K/uL (0.11-0.59); Monocytes % (auto) 8.5 %; Neutrophils # (auto) 3.91 K/uL (1.40-6.50); Neutrophils % (auto) 60.4 %; Platelet Count 309 K/uL (130-400); RDW Coefficient of Variation 12.8 % (11.5-14.5); RDW Standard Deviation 40.5 fL (36.4-46.3); Red Blood Count 4.18 M/uL (4.20-5.40); White Blood Count 6.48 K/ul (4.8-10.8)
[2023-01-04] MEDS: AMPHETAMINE ASP/SULF/DEXTRAMPH 5 MG TAB PO SCH ×2 (08:11→16:12)
[2023-01-04] MEDS: FLUTICASONE PROPIONATE NA SPR 16 GM BTL SCH (08:12)
[2023-01-04] MEDS: FLUoxetine HCL 20 MG CAP PO SCH (08:12)
[2023-01-04] MEDS: buPROPion HCl 75 MG TABLET PO SCH ×2 (08:12→16:13)
[2023-01-04] MEDS: HYDROCORTISONE 1% CRM 30 GM TUBE EXT SCH ×2 (08:13→21:25)
[2023-01-04] MEDS: MULTIVITAMIN TAB PO SCH (08:14)
[2023-01-04] MEDS: MERCAPTOPURINE 50 MG TAB PO SCH (08:14)
[2023-01-04] MEDS: NICOTINE 14 MG/24 HR PATCH TD SCH (08:14)
[2023-01-04] MEDS: PANTOprazole 40 MG TAB PO SCH (08:15)
[2023-01-04 08:32] LABS: Albumin Globulin Ratio 1.3 (0.9-2); Albumin Level 3.8 gm/dl (3.4-5.0); BUN Creatinine Ratio 18.3 (10-20); Bilirubin,Total 0.3 mg/dl (0.2-1.0); Calcium 9.1 mg/dl (8.6-10.3); Creatinine Clr Calc Pharmacy 106.4 ml/min; Est GFR (African American) 115.9 ml/min; Potassium 3.3 mmol/L (3.5-5.1); Total Protein 6.8 gm/dl (6.0-8.3)
[2023-01-04] MEDS: LORazepam 0.5 MG TAB PO SCH ×3 (09:23→21:24)
[2023-01-04] MEDS: GABAPENTIN 300 MG CAP PO SCH ×2 (09:23→16:13)
[2023-01-04] MEDS ORDERED: PROMETHAZINE HCL 6.25 MG in SODIUM CHLORIDE 0.9% 50 ML IV PRN (10:17)
[2023-01-04] MEDS ORDERED: ePHEDrine sulfate 50 MG/ML AMP IV PRN (10:17)
[2023-01-04] MEDS ORDERED: ONDANSETRON INJ 2 MG/ML 2 ML VIAL IV PRN (10:17)
[2023-01-04] MEDS ORDERED: HYDROmorphone INJ 1 MG/ML SYRINGE IV PRN (10:17)
[2023-01-04] MEDS ORDERED: ATROPINE SULFATE 0.1 MG/ML 10ML SYR IV PRN (10:17)
--- NOTE | 2023-01-04 10:20 | Anesthesiology Consultation ---
Date of Service January 04, 2023 Assessment & Plan (1) Encounter for pre-operative examination: Chart Review Chart Review: Acceptable Risk for Surgery and Patient NOT seen in Pre Admission Testing Consults Requested none History Surgery Operation Date: 01/04/23 13:10 Proposed Procedures p Laparoscopic Cholecystectomy Possible Open - Alexx Garrett MD, FACS Height/Weight Height: 5 ft 8 in Weight: 80 kg Allergies Allergy/AdvReac Type Severity Reaction Status Date / Time No Known Allergies Allergy Verified 01/04/23 10:48 Medications Home Medications Medication Instructions Recorded Confirmed Last Taken azelastine 137 mcg (0.1 %) nasal 2 spray intranasal BID PRN Nasal 04/29/22 12/31/22 Unknown spray aerosol Congestion bupropion HCl 75 mg tablet 150 mg PO BID 04/29/22 12/31/22 12/31/22 calcium carbonate 500 mg-vitamin 1 tab PO HS 04/29/22 12/31/22 12/30/22 D3 5 mcg (200 unit) tablet (Calcium 500 + D) fluoxetine 40 mg capsule 80 mg PO DAILY 04/29/22 12/31/22 12/31/22 fluticasone propionate 50 2 spray intranasal DAILY 04/29/22 12/31/22 12/31/22 mcg/actuation nasal spray,suspension gabapentin 300 mg capsule 300 mg PO BID 04/29/22 12/31/22 12/31/22 gabapentin 600 mg tablet 600 mg PO HS 04/29/22 12/31/22 12/30/22 lorazepam 0.5 mg tablet 0.5 mg PO TID 04/29/22 12/31/22 12/31/22 12:00 melatonin 5 mg tablet 5 mg PO HS 04/29/22 12/31/22 12/30/22 mercaptopurine 50 mg tablet 50 mg PO QAM 04/29/22 12/31/22 12/31/22 omega-3 fatty acids 1,000 mg 1,000 mg PO QPM 04/29/22 12/31/22 12/30/22 capsule pantoprazole 40 mg tablet,delayed 40 mg PO DAILY 04/29/22 12/31/22 12/31/22 release potassium chloride 10 mEq 10 meq PO HS 04/29/22 12/31/22 12/30/22 capsule,extended release ustekinumab 90 mg/mL subcutaneous 90 mg subcut .[id number] 04/29/22 12/31/22 Unknown syringe (Stelara) dextroamphetamine-amphetamine 5 mg 5 mg PO BID 12/31/22 12/31/22 12/31/22 tablet diphenoxylate-atropine 2.5 1 tab PO DAILY PRN Diarrhea 12/31/22 12/31/22 Unknown mg-0.025 mg tablet (Lomotil) multivitamin 1 tab PO DAILY 12/31/22 12/31/22 12/31/22 sodium chloride 0.65 % nasal spray 2 spray intranasal DIRECTED PRN 12/31/22 12/31/22 Unknown aerosol (Saline Nasal) NASAL DRYNESS Active Medications Generic Name Dose Route Start Last Admin Trade Name Freq PRN Reason Stop Dose Admin Acetaminophen 650 mg 01/01/23 03:50 01/03/23 08:21 Acetaminophen 325 Mg Tab PO 01/31/23 03:49 650 mg Q4H PRN Administration Pain or Fever Amphetamine/Dextroamphetamine 5 mg 01/01/23 09:00 01/04/23 08:11 Amphetamine Asp/Sulf/Dextramph 5 Mg Tab PO 01/15/23 08:59 5 mg BID@0900,1200 DENILSON Administration Bupropion HCl 150 mg 01/01/23 09:00 01/04/23 08:12 Bupropion Hcl 75 Mg Tablet PO 01/31/23 08:59 150 mg BID@0900,1200 DENILSON Administration Enoxaparin Sodium 40 mg 01/01/23 09:00 01/03/23 08:15 Enoxaparin Inj 40 Mg/0.4 Ml Syr SQ 01/31/23 08:59 40 mg QAM DENILSON Administration Fluoxetine HCl 80 mg 01/01/23 09:00 01/04/23 08:12 Fluoxetine Hcl 20 Mg Cap PO 01/31/23 08:59 80 mg DAILY DENILSON Administration Fluticasone Propionate 2 sprays 01/01/23 09:00 01/04/23 08:12 Fluticasone Propionate Na Spr 16 Gm Btl NA 01/31/23 08:59 2 sprays DAILY DENILSON Administration Gabapentin 600 mg 01/01/23 21:00 01/03/23 22:41 Gabapentin 600 Mg Tab PO 01/31/23 20:59 600 mg HS DENILSON Administration Gabapentin 300 mg 01/01/23 09:00 05/15/23 09:23 Gabapentin 300 Mg Cap PO 01/31/23 08:59 300 mg BID@0900,1200 DENILSON Administration Hydrocortisone 1 appln 01/01/23 21:00 01/04/23 08:13 Hydrocortisone 1% Crm 30 Gm Tube EXT 01/31/23 20:59 1 appln BID DENILSON Administration Promethazine HCl 12.5 mg/ 50.5 mls @ 202 mls/hr 01/01/23 00:21 01/01/23 03:52 Sodium Chloride IV 01/31/23 00:20 Infused Q6H PRN Infusion Nausea And Vomiting Ceftriaxone Sodium 2,000 mg/ 70 mls @ 100 mls/hr 01/03/23 14:45 01/04/23 15:00 Dextrose IV 01/13/23 14:44 Infused Q24H DENILSON Infusion Protocol Metronidazole 500 mg in 100 mls @ 100 mls/hr 01/03/23 14:45 01/04/23 14:52 Flagyl IV 01/13/23 14:44 100 mls/hr Q8H DENILSON Administration Lorazepam 0.5 mg 01/01/23 09:00 01/04/23 09:23 Lorazepam 0.5 Mg Tab PO 01/31/23 08:59 0.5 mg TID DENILSON Administration Melatonin 4.5 mg 01/01/23 21:00 01/03/23 22:39 Melatonin 3 Mg Tab PO 01/31/23 20:59 4.5 mg HS DENILSON Administration Mercaptopurine 50 mg 01/01/23 09:00 01/04/23 08:14 Mercaptopurine 50 Mg Tab PO 01/31/23 08:59 50 mg QAM DENILSON Administration Miscellaneous 1 each 01/02/23 08:59 01/04/23 08:01 Remove Nicoderm Patch N/A 02/01/23 08:58 1 each DAILY@0859 DENILSON Administration Morphine Sulfate 2 mg 01/03/23 09:57 01/04/23 14:52 Morphine Sulfate 2 Mg/Ml Carp IV 01/15/23 02:34 2 mg Q4H PRN Administration Pain Multivitamins 1 tab 01/01/23 09:00 01/04/23 08:14 Multivitamin Tab PO 01/31/23 08:59 1 tab DAILY DENILSON Administration Nicotine 14 mg 01/01/23 05:00 01/04/23 08:14 Nicotine 14 Mg/24 Hr Patch TD 01/31/23 04:59 14 mg QAM DENILSON Administration Oxycodone HCl 5 mg 01/01/23 02:35 01/04/23 02:33 Oxycodone Hcl Ir 5 Mg Tab (Immediate Release) PO 01/15/23 02:34 5 mg Q4H PRN Administration Pain Pantoprazole Sodium 40 mg 01/01/23 09:00 01/04/23 08:15 Pantoprazole 40 Mg Tab PO 01/31/23 08:59 40 mg DAILY DENILSON Administration Past Medical History Medical History (Updated 01/04/23 @ 10:23 by Lefty Velázquez MD) Abnormal CT scan, chest Cholelithiasis Chronic maxillary sinusitis Crohn's disease Depression with anxiety Encounter for pre-operative examination History of Clostridioides difficile colitis History of deviated nasal septum History of erythema nodosum History of uveitis Prolonged QT interval Tobacco abuse Past Family History Family History Father Heart disease TIA (transient ischemic attack) Mother Heart disease FH: diverticulitis Sister Crohn's disease Diabetes Past Surgical History Surgical History (Updated 01/04/23 @ 12:46 by Katie Rivers RN) History of colectomy History of colonoscopy Last 07/2019 History of rhinoplasty Multiple nasal surgeries x3 History of surgery (01/04/23) Attempted Laparoscopy, Exploratory Laparotomy, Lysis of Adhesions(Not Applicable) - Alexx Garrett MD, FACS Social History Smoking Status: Current every day smoker tobacco type: cigarettes Smoking cigarettes per day: 10 Do You Dip or Chew Tobacco: No Hx Alcohol Use: Yes Alcohol type: wine alcohol intake frequency: holidays/special occasions only Hx Substance Use: No substance use type: does not use Last Used Substance Other:: 3 to 4 weeks ago Physical Exam Vital Signs Last Vital Signs Temp 36.5 C 01/04/23 15:13 Pulse 87 01/04/23 15:13 Resp 19 01/04/23 15:13 BP 121/73 01/04/23 15:13 Pulse Ox 91 01/04/23 15:13 O2 Del Method Nasal Cannula 01/04/23 15:13 O2 Flow Rate 2 01/04/23 15:13 Testing Laboratory Results 01/04/23 07:44 05/15/23 07:44 Urine Color Yellow 12/31/22 22:08 Urine Appearance Clear (Clear) 12/31/22 22:08 Urine pH 5.5 (4.5-7.5) 12/31/22 22:08 Ur Specific [place] 1.022 (1.000-1.030) 12/31/22 22:08 Urine Protein Trace (Negative) H 12/31/22 22:08 Urine Glucose (UA) Negative (Negative) 12/31/22 22:08 Urine Ketones Negative (Negative) 12/31/22 22:08 Urine Nitrite Negative (Negative) 12/31/22 22:08 Ur Leukocyte Esterase 1+ (Negative) H 12/31/22 22:08 Urine WBC (Auto) 10-30 /hpf (0-5) H 12/31/22 22:08 Urine RBC (Auto) 0-4 /hpf (0-4) 12/31/22 22:08 U Hyaline Cast (Auto) 1-5 /lpf (0-5) 12/31/22 22:08 U Epithel Cells (Auto) 20-30 /lpf (0-5) H 12/31/22 22:08 Urine Bacteria (Auto) Negative (Negative) 12/31/22 22:08 12/31/22 22:08 Urine Culture - Final Urine,Clean Catch More than three types of organisms present, all low counts mixed probable skin bijan. No further identifications or sensitivities to follow. Electrocardiogram Date: 01/01/23 DICTATED BY:Hemanth Wiseman MD Test Reason : Blood Pressure : / mmHG Vent. Rate : 070 BPM Atrial Rate : 070 BPM P-R Int : 134 ms QRS Dur : 092 ms QT Int : 454 ms P-R-T Axes : 060 007 048 degrees QTc Int : 490 ms Normal sinus rhythm Prolonged QT Abnormal ECG When compared with ECG of 29-APR-2022 16:05, No significant change was found Confirmed by Hemanth Wiseman ([id number]) on 01/02/2023 6:23:38 AM Other Testing 12/31/22: IMPRESSION: There are new abnormal distended small bowel loops in the mid abdomen with surrounding mesenteric fat stranding and retained fecal appearing material distally adjacent to an apparent transition point in the anterior abdomen. The transition point is noted immediately adjacent to the postsurgical changes (series 302; images 20-31). Findings are most consistent with at least a developing partial small bowel obstruction. No pneumoperitoneum.
[2023-01-04] MEDS ORDERED: ACETAMINOPHEN 1000 MG/100 ML IV IV ONE (10:32)
[2023-01-04] MEDS ORDERED: MIDAZOLAM HCL 1 MG/ML 2ML VIAL ONE (10:34)
[2023-01-04] MEDS ORDERED: fentaNYL citrate PF 100 MCG/2 ML VIAL ONE (10:34)
[2023-01-04] MEDS ORDERED: BUPIVACAINE 0.5 % 5 MG/1 ML MPF 30ML VIAL ONE (11:00)
[2023-01-04] MEDS ORDERED: ROCURONIUM BROMIDE 10 MG/ML 5 ML VIAL IV ONE (11:16)
[2023-01-04] MEDS ORDERED: DEXAMETHASONE SOD INJ 4 MG/ML VIAL ONE (11:16)
[2023-01-04] MEDS ORDERED: PROPOFOL IV EMULSION 10 MG/ML 20 ML VIAL IV ONE (11:16)
[2023-01-04] MEDS ORDERED: ePHEDrine sulfate 50 MG/ML SYR ONE (11:28)
[2023-01-04] MEDS ORDERED: KETAMINE 50 MG/5 ML SYRINGE ONE (11:36)
[2023-01-04] MEDS ORDERED: NEOSTIGMINE METHYLSULFATE 1 MG/ML 10ML VIAL ONE (12:03)
[2023-01-04] MEDS ORDERED: GLYCOPYRROLATE 0.2 MG/ML VIAL ONE (12:03)
--- NOTE | 2023-01-04 12:17 | Post Operative Brief Note ---
PG Immediate Post Op with CF Date of Surgery January 04, 2023 Pre & Post Diagnosis Operation Date: 01/04/23 13:10 Pre-Op Diagnosis: Acute cholecystitis Post-Op Diagnosis: Acute cholecystitis, severe adhesions, hostile abdomen I identified the patient and participated in the time-out.: Yes Procedure Operation Date: 01/04/23 13:10 Actual Procedures p Attempted Laparoscopy, Exploratory Laparotomy, Lysis of Adhesions(Not Applicable) - Alexx Garrett MD, FACS Surgeon Alexx Garrett MD, FACS [employer] dudley rodriguez Estimated Blood Loss 10 Findings Consistent with Post-Op Diagnosis I attempted laparoscopy but found her bowel severely adherent to her fascia I then opened with a right upper quadrant incision encountering severe adhesions of her bowel to the fascia This was a hostile abdomen in my experience She is not in an life-threatening situation , I did not feel it appropriate to continue on and because multiple enterotomies And potentially severe bleeding from the liver
[2023-01-04] MEDS ORDERED: ACETAMINOPHEN 1,000 MG/100 ML VIAL IV ONE (12:18)
[2023-01-04] MEDS: fentaNYL citrate PF 100 MCG/2 ML VIAL IV PRN ×4 (12:53→13:10)
[2023-01-04] MEDS: cefTRIAXone SODIUM 2,000 MG in DEXTROSE 5% 50 ML IV SCH (14:16)
--- NOTE | 2023-01-04 16:13 | Hospitalist Progress Note ---
Date of Service January 04, 2023 Assessment & Plan (1) Acute cholecystitis: (2) SBO (small bowel obstruction): Plan: Medical history significant for Crohn's disease status post surgery on immunosuppressive regimen, History of multiple abdominal surgeries Right mid abdominal pain on admission CT abdomen and pelvis showed abnormal distended small bowel loops in mid abdomen with surrounding mesenteric fat stranding. Distended gallbladder Labs reviewed; no leukocytosis. GI evaluated the patient; did not recommend steroids for now. Surgery on board; recommended right upper quadrant ultrasound for possible acute cholecystitis. Right upper quadrant ultrasound shows findings concerning for acute cholecystitis Discussed with surgery; surgery attempted laparoscopy on 01/04/2023; she was found to have bowel severely adherent to her fascia. Right upper quadrant inc ision was made; severe adhesions of her bowel to the fascia. Plan for HIDA scan. Continue on antibiotic. Decision to be made depending on clinical course and HIDA scan. Pain control Chronic conditions; ADDcontinue home meds Anxietycontinue bupropion, Ativan Chron's diseaseon Stelara every 8 weeks Full code Lovenox for DVT prophylaxis Dispositionfrom home; continues to hospitalized due to acute cholecystitis. Admission and Anticipated Discharge Date Admission Date: January 01, 2023 Subjective Seen in the morning. She reports pain in right upper quadrant. She is anxious regarding the procedure. Afebrile and hemodynamically stable. Review of Systems Review of Systems: All systems reviewed & are unremarkable except as noted in Subjective Physical Exam Physical Exam: Constitutional: WD/WN, vitals as above, NAD, sitting up in bed, pleasant, conversing easily Respiratory: normal respiratory effort, lungs clear to auscultation, no wheeze, rales, rhonchi. Normal insp/exp effort, no accessory muscle use Cardiovascular: RRR, no murmur, no edema Vessels: no JVD or carotid bruit Chest: normal inspection of chest Abdomen: Right upper quadrant tenderness present. Arzola sign positive. Musculoskeletal: no cyanosis or clubbing, extremities motor strength 5/5 Skin: no rashes, warm and dry normal turgor Neurologic: PERRL, EOMI, accommodation nl, no face palsy, no dysarthria CN's II- XI intact bilaterally and moves all extremities Psychiatric: A+Ox3, euthymic affect Lymphatic: no cervical or axillary lymphadenopathy : deferred Results & Data Results & Data Vital Signs (Past 12 Hours) Vital Signs Temp Pulse Pulse Pulse Resp BP Pulse Ox 01/04/23 14:07 93 H 01/04/23 15:13 36.5 C 87 19 121/73 91 01/04/23 14:36 36.4 C L 89 18 137/65 93 01/04/23 14:16 36.9 C 96 H 18 134/84 91 01/04/23 14:06 36.7 C 92 H 18 126/84 90 01/04/23 13:45 84 19 139/72 92 01/04/23 13:35 36.7 C 86 21 136/83 93 01/04/23 13:25 84 13 140/83 92 01/04/23 13:15 83 20 137/86 91 01/04/23 13:05 82 14 139/87 92 01/04/23 12:55 76 12 141/77 H 91 01/04/23 12:45 73 13 145/62 H 93 01/04/23 12:35 69 18 139/75 94 01/04/23 12:28 36.7 C 65 12 138/73 96 01/04/23 08:00 01/04/23 10:43 36.7 C 80 18 155/84 H 94 01/04/23 07:49 36.7 C 73 19 145/74 H 94 01/04/23 06:01 68 01/04/23 04:16 36.8 C 69 18 135/72 93 O2 Del Method O2 Flow Rate 01/04/23 14:07 01/04/23 15:13 Nasal Cannula 2 01/04/23 14:36 Nasal Cannula 2 01/04/23 14:16 Nasal Cannula 2 01/04/23 14:06 Nasal Cannula 3 01/04/23 13:45 Nasal Cannula 3 01/04/23 13:35 Nasal Cannula 3 01/04/23 13:25 Nasal Cannula 3 01/04/23 13:15 Nasal Cannula 3 01/04/23 13:05 Nasal Cannula 3 01/04/23 12:55 Nasal Cannula 2 01/04/23 12:45 Oxymask 5 01/04/23 12:35 Oxymask 5 01/04/23 12:28 Oxymask 9 01/04/23 08:00 Room Air 01/04/23 10:43 Room Air 01/04/23 07:49 Room Air 01/04/23 06:01 01/04/23 04:16 Room Air Laboratory Results Laboratory Results WBC 6.48 K/ul (4.8-10.8) 01/04/23 07:44 RBC 4.18 M/uL (4.20-5.40) L 01/04/23 07:44 Hgb 12.5 g/dl (12.0-16.0) 01/04/23 07:44 Hct 36.4 % (37.0-47.0) L 01/04/23 07:44 MCV 87.1 fL (80.0-100.0) 01/04/23 07:44 MCH 29.9 pg (25.0-34.0) 01/04/23 07:44 MCHC 34.3 g/dL (32.0-36.0) 01/04/23 07:44 RDW Std Deviation 40.5 fL (36.4-46.3) 01/04/23 07:44 RDW Coeff of Samia 12.8 % (11.5-14.5) 01/04/23 07:44 Plt Count 309 K/uL (130-400) 01/04/23 07:44 MPV 8.9 fL (9.4-12.4) L 01/04/23 07:44 Immature Gran % (Auto) 0.3 % 01/04/23 07:44 Neut % (Auto) 60.4 % 01/04/23 07:44 Lymph % (Auto) 27.9 % 01/04/23 07:44 [place] % (Auto) 8.5 % 01/04/23 07:44 Eos % (Auto) 2.3 % 01/04/23 07:44 Baso % (Auto) 0.6 % 01/04/23 07:44 Neut # (Auto) 3.91 K/uL (1.40-6.50) 01/04/23 07:44 Lymph # (Auto) 1.81 K/uL (1.2-3.4) 01/04/23 07:44 [place] # (Auto) 0.55 K/uL (0.11-0.59) 01/04/23 07:44 Eos # (Auto) 0.15 K/uL (0-0.50) 01/04/23 07:44 Baso # (Auto) 0.04 K/uL (0-0.2) 01/04/23 07:44 Immature Gran # (Auto) 0.02 K/uL (0.01-0.20) 01/04/23 07:44 ESR 31 mm/hr (0-20) H 01/01/23 08:17 Sodium 141 mmol/L (136-145) 01/04/23 07:44 Potassium 3.3 mmol/L (3.5-5.1) L 01/04/23 07:44 Chloride 105 mmol/L (98-107) 01/04/23 07:44 Carbon Dioxide 30 mmol/L (21-32) 01/04/23 07:44 Anion Gap 6 (3-11) 01/04/23 07:44 BUN 13 mg/dl (6-23) 01/04/23 07:44 Creatinine 0.71 mg/dl (0.6-1.2) 01/04/23 07:44 Est Cr Clr Drug Dosing 106.4 ml/min 01/04/23 07:44 Est GFR ( Amer) 115.9 ml/min 01/04/23 07:44 Est GFR (Non-Af Amer) 100.0 ml/min 01/04/23 07:44 BUN/Creatinine Ratio 18.3 (10-20) 01/04/23 07:44 Glucose 81 mg/dl (70-99(Fasting)) 01/04/23 07:44 Calcium 9.1 mg/dl (8.6-10.3) 01/04/23 07:44 Phosphorus 3.8 mg/dl (2.5-4.9) 01/01/23 08:17 Magnesium 1.9 mg/dl (1.7-2.4) 01/01/23 08:17 Total Bilirubin 0.3 mg/dl (0.2-1.0) 01/04/23 07:44 AST 16 U/L (13-39) 01/04/23 07:44 ALT 13 U/L (7-52) 01/04/23 07:44 Alkaline Phosphatase 61 U/L (34-104) 01/04/23 07:44 C-Reactive Protein 0.94 mg/dl (0-0.5) H 01/01/23 08:17 Total Protein 6.8 gm/dl (6.0-8.3) 01/04/23 07:44 Albumin 3.8 gm/dl (3.4-5.0) 01/04/23 07:44 Globulin 3.0 gm/dl (2.5-4.0) 01/04/23 07:44 Albumin/Globulin Ratio 1.3 (0.9-2) 01/04/23 07:44 Lipase 24 U/L (11-82) 12/31/22 20:38 Urine Color Yellow 12/31/22 22:08 Urine Appearance Clear (Clear) 12/31/22 22:08 Urine pH 5.5 (4.5-7.5) 12/31/22 22:08 Ur Specific [place] 1.022 (1.000-1.030) 12/31/22 22:08 Urine Protein Trace (Negative) H 12/31/22 22:08 Urine Glucose (UA) Negative (Negative) 12/31/22 22:08 Urine Ketones Negative (Negative) 12/31/22 22:08 Urine Blood 2+ (Negative) H 12/31/22 22:08 Urine Nitrite Negative (Negative) 12/31/22 22:08 Urine Bilirubin Negative (Negative) 12/31/22 22:08 Urine Urobilinogen Negative (Negative) 12/31/22 22:08 Ur Leukocyte Esterase 1+ (Negative) H 12/31/22 22:08 Urine WBC (Auto) 10-30 /hpf (0-5) H 12/31/22 22:08 Urine RBC (Auto) 0-4 /hpf (0-4) 12/31/22 22:08 U Hyaline Cast (Auto) 1-5 /lpf (0-5) 12/31/22 22:08 U Epithel Cells (Auto) 20-30 /lpf (0-5) H 12/31/22 22:08 Urine Bacteria (Auto) Negative (Negative) 12/31/22 22:08 Stl C. cayetanensis PCR Not Detected (NotDetected) 01/01/23 Unknown Stool Rotavirus A PCR Not Detected (NotDetected) 01/01/23 Unknown Stl Adenov F 40/41 PCR Not Detected (NotDetected) 01/01/23 Unknown Stool Astrovirus (PCR) Not Detected (NotDetected) 01/01/23 Unknown Stool Campylobacter PCR Not Detected (NotDetected) 01/01/23 Unknown Stl C. diff Tox B Gene Negative Cdiff Gene (Neg) 01/01/23 Unknown Stool Cryptosporidium PCR Not Detected (NotDetected) 01/01/23 Unknown Stl E.coli Shiga Tox PCR Not Detected (NotDetected) 01/01/23 Unknown Stl Enterotoxigenic E PCR Not Detected (NotDetected) 01/01/23 Unknown Stool EPEC (PCR) Not Detected (NotDetected) 01/01/23 Unknown Stool EAEC (PCR) Not Detected (NotDetected) 01/01/23 Unknown Stl E. histolytica PCR Not Detected (NotDetected) 01/01/23 Unknown Stool Giardia Lamblia PCR Not Detected (NotDetected) 01/01/23 Unknown Stool Salmonella PCR Not Detected (NotDetected) 01/01/23 Unknown Stool Sapovirus (PCR) Not Detected (NotDetected) 01/01/23 Unknown Stl P. shigelloides PCR Not Detected (NotDetected) 01/01/23 Unknown Stl Shigella/EIEC PCR Not Detected (NotDetected) 01/01/[address].enterocolitica PCR Not Detected (NotDetected) 01/01/23 Unknown Stool Vibrio (PCR) Not Detected (NotDetected) 01/01/23 Unknown Stl Vibrio cholerae PCR Not Detected (NotDetected) 01/01/23 Unknown Stl Norovirus GI/GII PCR Not Detected (NotDetected) 01/01/23 Unknown SARS-CoV-2, RNA, NAAT NEGATIVE (NEGATIVE) 01/01/23 00:10 Impressions Abdomen/Pelvis CT 12/31/22 22:02 Exam(s): CT ABDOMEN + PELVIS With Contrast IV Amt: 81ml EXAM: CT Abdomen and Pelvis With Intravenous Contrast CLINICAL HISTORY: Right mid abdominal pain. TECHNIQUE: Axial computed tomography images of the abdomen and pelvis with intravenous contrast. CTDI is 15.9 mGy and DLP is 961.01 mGy-cm. Automated exposure control was utilized for the study. A dose lowering technique was utilized adhering to the principles of ALARA. CONTRAST: Patient received 81ml of IV contrast COMPARISON: 10/10/2020 FINDINGS: Lung bases: Unremarkable. No mass. No consolidation. ABDOMEN: Liver: Unremarkable. No mass. Gallbladder and bile ducts: There are 2 gallstones noted in the gallbladder, not appreciably altered from the previous examination, measuring up to 14 mm. The gallbladder is distended without gallbladder wall thickening. No biliary dilatation. Pancreas: Unremarkable. No mass. No ductal dilation. Spleen: Unremarkable. No splenomegaly. Adrenals: Unremarkable. No mass. Kidneys and ureters: Unremarkable. No solid mass. No hydronephrosis. Stomach and bowel: There are new abnormal distended small bowel loops in the mid abdomen with surrounding mesenteric fat stranding and retained fecal appearing material distally adjacent to an apparent transition point in the anterior abdomen. The transition point is noted immediately adjacent to the postsurgical changes (series 302; images 20-31). Postsurgical changes consistent with right hemicolectomy, stable from the previous examination. The remaining left colon is decompressed without significant stool burden. PELVIS: Appendix: Surgically absent. Bladder: Unremarkable. No mass. Reproductive: Unremarkable as visualized. ABDOMEN and PELVIS: Intraperitoneal space: Unremarkable. No free air. No significant fluid collection. Bones/joints: No acute fracture. No dislocation. Soft tissues: Unremarkable. Vasculature: Unremarkable. No abdominal aortic aneurysm. Lymph nodes: Unremarkable. No enlarged lymph nodes. IMPRESSION: There are new abnormal distended small bowel loops in the mid abdomen with surrounding mesenteric fat stranding and retained fecal appearing material distally adjacent to an apparent transition point in the anterior abdomen. The transition point is noted immediately adjacent to the postsurgical changes (series 302; images 20-31). Findings are most consistent with at least a developing partial small bowel obstruction. No pneumoperitoneum. Electronically signed by: Lester Prieto MD 12/31/22 22:51 PM KUB X-Ray 01/01/23 09:09 KUB HISTORY: Acute abdominal pain with reported small bowel obstruction eval partial sbo COMPARISON: CT abdomen and pelvis 12/31/2022 FINDINGS: There is persistent air-filled dilated loops of small bowel which appear unchanged from the prior study. Contrast noted within the urinary bladder lumen. Cholelithiasis. No renal calculi. No ureteral calculi. No pneumoperitoneum or pneumatosis. No fracture. IMPRESSION: Unchanged appearance of the persistent small bowel obstruction. ACT 112: Negative or not required by law. The above report was generated using voice recognition software. It may contain grammatical, syntax or spelling errors. Electronically signed by: Torey Lindsay M.D. 01/01/2023 10:36 AM Liver Ultrasound 01/03/23 09:56 US liver CLINICAL HISTORY: Rule out acute cholecystitis TECHNIQUE: Multiple real-time sonographic images of the right upper quadrant were obtained. Comparison: Comparison is made to CT abdomen pelvis 12/31/2022 FINDINGS: The liver is diffusely echogenic in appearance with poor ultrasound penetration, with normal contour, which is consistent with fatty infiltration. Liver appears enlarged measuring 16.2 cm. No focal mass lesions are seen. No intrahepatic ductal dilatation is seen. Nonmobile stones are seen in the gallbladder. Gallbladder wall measures 3 mm or greater. A sonographic Arzola's sign was elicited by the integrated logistics operations manager. The common duct measures 0.5 cm in diameter at the level of the hepatic artery. The visualized portions of the pancreas appear normal. The right kidney shows normal echogenicity, cortical thickness and renal contour. The right kidney shows no evidence of hydronephrosis or mass. No ascites or free fluid is seen in Stein's pouch. IMPRESSION: 1. Gallbladder wall thickening, nonmobile stones, and tenderness on exam compatible with acute cholecystitis. 2. Hepatic steatosis. ACT 112: Negative or not required by law. Electronically signed by: Leo Gimenez M.D. 01/03/2023 2:32 PM
[2023-01-04] MEDS: MELATONIN 3 MG TAB PO SCH (21:23)
--- NOTE | 2023-01-04 21:24 | Operative Report (OR) ---
DATE OF OPERATION: 01/04/2023. NAME OF OPERATION: Attempted laparoscopy with exploratory laparotomy and lysis of adhesions. PREOPERATIVE DIAGNOSIS: Acute cholecystitis. POSTOPERATIVE DIAGNOSIS: Acute cholecystitis with severe adhesions and hostile abdomen. STAFF SURGEON: Alexx Garrett MD. ANESTHESIA: General. FURNACE PROCESS PLANT OPERATOR: Mariana Hernandez PA-C. DESCRIPTION OF PROCEDURE: The patient was brought in the operating room, placed on the operating tab le in supine position. Her abdomen was prepped and draped in the usual fashion. The patient did hav e a long midline scar from prior incisions from the xiphoid to the pubis, it appeared multiple. At t his point, she was prepped and draped. My retail loan originator assistant helped with prepping and draping the procedure a nd helped with closure of the wound. I made an incision approximately 2-3 cm in the right side of th e abdomen, carrying dissection down identifying what I thought was the fascia and then peritoneum and on opening the tissue encountered adherent bowel. I could not mobilize it easily from surrounding t issue, it was very adherent. At this point, I felt that because of her prior surgery and this findin g that I would attempt an open operation; therefore, right upper quadrant incision was made carrying dissection down through the fascia and the entire length of the incision, I encountered a severely ad herent bowel. I think it was both small bowel and colon. At one point, I was attempting to mobilize the colon superiorly and almost created an enterotomy, which it was not an enterotomy, was a serosal laceration, which I repaired using 3-0 silk suture. Because of the density of the adhesions, I did no t feel that her situation was life threatening to proceed and potentially cause multiple enterotomies and even potentially severe bleeding from the liver; therefore, I decided to stop. The wound was ir rigated. The fascia was reapproximated using both running and interrupted #1 PDS suture. Subcutaneo us tissue reapproximated using 2-0 plain suture, then the skin reapproximated using lexy. A dress ing applied. The patient was transferred to recovery room in stable condition. Job ID: [id number]
[2023-01-04] MEDS: GABAPENTIN 600 MG TAB PO SCH (21:25)
[2023-01-05] MEDS: MoRPHine SULFATE 2 MG/ML CARP IV PRN (03:27)
[2023-01-05] MEDS: metroNIDAZOLE 500 MG/100 ML BAG IV SCH ×3 (06:24→20:57)
--- NOTE | 2023-01-05 06:47 | Surgery Progress Note ---
Date of Service January 05, 2023 Assessment & Plan (1) History of surgery: Plan: Patient with very severe adhesions from prior surgery She does have right upper quadrant pain which is likely from her incision more than acute cholecystitis She seems to be tolerating liquids well For HIDA scan this morning If cystic duct is obstructed we will need to decide whether we want placed a cholecystostomy tube We will ask GI their thoughts on endoscopic drainage Patient seems to be stable and not septic-continue IV antibiotics for now I will change her from morphine to Dilaudid as needed Also ordered oxycodone Admission and Anticipated Discharge Date Admission Date: January 01, 2023 Results & Data Vital Signs (Past 12 Hours) Vital Signs Temp Pulse Pulse Resp BP Pulse Ox O2 Del Method 01/05/23 03:40 36.6 C 76 18 139/74 92 Room Air 01/05/23 00:27 96 H 01/04/23 23:50 Room Air 01/04/23 23:04 37.0 C 86 18 128/68 94 Room Air 01/04/23 18:58 36.4 C L 104 H 18 153/80 H 90 Room Air PG Care Time/CCT Total # of Minutes Spent Total Time Spent with Patient: Total time spent is greater than 50% in coordination of care (as documented) at patient's floor/unit and/or counseling patient: Coding Level of Care Code None Diagnoses History of surgery Z98.890
[2023-01-05 07:23] LABS: Basophils # (auto) 0.05 K/uL (0-0.2); Basophils % (auto) 0.4 %; Eosinophils # (auto) 0.03 K/uL (0-0.50); Eosinophils % (auto) 0.2 %; Hematocrit (blood only) 37.7 % (37.0-47.0); Hemoglobin 12.9 g/dl (12.0-16.0); Immature Granulocytes # (auto) 0.07 K/uL (0.01-0.20); Immature Granulocytes % (auto) 0.6 %; Lymphocytes % (auto) 13.8 %; Mean Corpuscular Hgb Conc 34.2 g/dL (32.0-36.0); Mean Corpuscular Volume 87.7 fL (80.0-100.0); Mean Platelet Volume 9.2 fL (9.4-12.4); Monocytes # (auto) 1.05 K/uL (0.11-0.59); Monocytes % (auto) 8.5 %; Neutrophils # (auto) 9.39 K/uL (1.40-6.50); Neutrophils % (auto) 76.5 %; Platelet Count 347 K/uL (130-400); RDW Coefficient of Variation 13.3 % (11.5-14.5); RDW Standard Deviation 42.7 fL (36.4-46.3); White Blood Count 12.29 K/ul (4.8-10.8)
[2023-01-05 07:38] LABS: Albumin Globulin Ratio 1.2 (0.9-2); Albumin Level 3.9 gm/dl (3.4-5.0); BUN Creatinine Ratio 16.9 (10-20); Bilirubin,Total 0.2 mg/dl (0.2-1.0); Calcium 9.3 mg/dl (8.6-10.3); Creatinine Clr Calc Pharmacy 118.8 ml/min; Est GFR (African American) 120.8 ml/min; Est GFR (Non-African American) 104.3 ml/min; Globulin 3.2 gm/dl (2.5-4.0); Potassium 3.5 mmol/L (3.5-5.1); Total Protein 7.1 gm/dl (6.0-8.3)
--- NOTE | 2023-01-05 09:23 | Communication Note ---
Date of Service: January 05, 2023 Attempted to evaluate patient x 2. She was out of her room. Will attempt on afternoon rounds. Case was discussed with biliary attending. Await results of HIDA. If concern for acute cholecystitis, recommend transfer to tertiary care center. If HIDA negative, can plan for OP AXIOS w/ biliary decompression/drainage. Will follow imaging results and discuss with attending. Thank you for allowing us to participate in the care of this patient. Please call with any acute changes, questions or concerns. Please see addendum below with additional recommendation from my supervising physician. I saw and evaluated the patient on 01/05/2023 with THIERRY Garner. Spoke with Dr. Rowley (her primary GI physician). He agrees if patient has acute cholecystitis she would need transfer to tertiary care center. if HIDA is negative he will see her in the office first and discuss about need for axios placement for gallbladder drainage. This was discussed with patient. Susan Baron, Gastroenterology and Hepatology
[2023-01-05] MEDS: HYDROmorphone INJ 0.5 MG/0.5 ML SYR IV PRN ×4 (09:28→20:54)
[2023-01-05] MEDS: NICOTINE 14 MG/24 HR PATCH TD SCH (09:49)
[2023-01-05] MEDS: buPROPion HCl 75 MG TABLET PO SCH ×2 (09:50→14:00)
[2023-01-05] MEDS: HYDROCORTISONE 1% CRM 30 GM TUBE EXT SCH ×2 (09:51→20:59)
[2023-01-05] MEDS: FLUoxetine HCL 20 MG CAP PO SCH (09:51)
[2023-01-05] MEDS: FLUTICASONE PROPIONATE NA SPR 16 GM BTL SCH (09:51)
[2023-01-05] MEDS: GABAPENTIN 300 MG CAP PO SCH ×2 (09:52→14:00)
[2023-01-05] MEDS: MERCAPTOPURINE 50 MG TAB PO SCH (09:52)
[2023-01-05] MEDS: PANTOprazole 40 MG TAB PO SCH (09:52)
[2023-01-05] MEDS: MULTIVITAMIN TAB PO SCH (09:52)
[2023-01-05] MEDS: AMPHETAMINE ASP/SULF/DEXTRAMPH 5 MG TAB PO SCH ×2 (09:59→14:05)
[2023-01-05] MEDS: LORazepam 0.5 MG TAB PO SCH ×3 (09:59→21:00)
--- NOTE | 2023-01-05 12:59 | Nuclear Medicine Report ---
NM hepatobiliary CLINICAL HISTORY: Rule out cystic duct obstruction TECHNIQUE: Following the intravenous injection of 5.1 mCi of Tc-99m labeled Technetium 99m mebrofeni n, multiple images of the upper abdomen were obtained in the anterior projection with uptake measurem ents of the gallbladder obtained. Comparison: None available at the time of this dictation. FINDINGS: Sequential images demonstrate normal uptake in the liver, common bile duct, gallbladder, an d small bowel. No defects in uptake are identified. Subsequent imaging after the administration of si ncalide demonstrates prompt elimination of the radiotracer from the gallbladder. IMPRESSION: Normal uptake of contrast by the gallbladder. No evidence of acute cholecystitis. Reference: Normal gallbladder ejection fraction is greater than 33%. ACT 112: Negative or not required by law. Electronically signed by: Leo Gimenez M.D. 01/05/2023 12:58 PM
[2023-01-05] MEDS: cefTRIAXone SODIUM 2,000 MG in DEXTROSE 5% 50 ML IV SCH (15:48)
--- NOTE | 2023-01-05 16:23 | Hospitalist Progress Note ---
Date of Service January 05, 2023 Assessment & Plan (1) Acute cholecystitis: (2) SBO (small bowel obstruction): Plan: Medical history significant for Crohn's disease status post surgery on immunosuppressive regimen, History of multiple abdominal surgeries Right mid abdominal pain on admission CT abdomen and pelvis showed abnormal distended small bowel loops in mid abdomen with surrounding mesenteric fat stranding. Distended gallbladder Right upper quadrant ultrasound was concerning for acute cholecystitis. Surgery attempted laparoscopy on 01/04/2023; she was found to have bowel severely adherent to her fascia. Right upper quadrant incision was made; severe a dhesions of her bowel to the fascia. HIDA scan rules out acute cholecystitis. GI to follow outpatient and discuss about need for axios placement for gallbladder drainage Discussed with surgery; since HIDA scan negative. Plan is to advance diet as tolerated. Pain control. And continue antibiotic. If patient continues to show signs of improvement in the next 1 to 2 days. Discharged with follow-up with GI. Chronic conditions; ADDcontinue home meds Anxietycontinue bupropion, Ativan Chron's diseaseon Stelara every 8 weeks Full code Lovenox for DVT prophylaxis Dispositionfrom home; likely DC in 1 to 2 days. Admission and Anticipated Discharge Date Admission Date: January 01, 2023 Subjective Patient seen and examined at bedside. She reports pain at the incision site. Afebrile. Review of Systems Review of Systems: All systems reviewed & are unremarkable except as noted in Subjective Physical Exam Physical Exam: Constitutional: WD/WN, vitals as above, NAD, sitting up in bed, pleasant, conversing easily Respiratory: normal respiratory effort, lungs clear to auscultation, no wheeze, rales, rhonchi. Normal insp/exp effort, no accessory muscle use Cardiovascular: RRR, no murmur, no edema Vessels: no JVD or carotid bruit Chest: normal inspection of chest Abdomen: Right upper quadrant tenderness present. Arzola sign positive. Musculoskeletal: no cyanosis or clubbing, extremities motor strength 5/5 Skin: no rashes, warm and dry normal turgor Neurologic: PERRL, EOMI, accommodation nl, no face palsy, no dysarthria CN's II- XI intact bilaterally and moves all extremities Psychiatric: A+Ox3, euthymic affect Lymphatic: no cervical or axillary lymphadenopathy : deferred Results & Data Results & Data Vital Signs (Past 12 Hours) Vital Signs Temp Pulse Pulse Resp BP Pulse Ox O2 Del Method 01/05/23 15:40 36.6 C 82 18 145/76 H 93 Room Air 01/05/23 08:00 74 01/05/23 10:54 36.6 C 74 18 152/81 H 95 Room Air 01/05/23 07:24 36.8 C 79 18 136/80 92 Room Air Laboratory Results Laboratory Results WBC 12.29 K/ul (4.8-10.8) H 01/05/23 06:36 RBC 4.30 M/uL (4.20-5.40) 01/05/23 06:36 Hgb 12.9 g/dl (12.0-16.0) 01/05/23 06:36 Hct 37.7 % (37.0-47.0) 01/05/23 06:36 MCV 87.7 fL (80.0-100.0) 01/05/23 06:36 MCH 30.0 pg (25.0-34.0) 01/05/23 06:36 MCHC 34.2 g/dL (32.0-36.0) 01/05/23 06:36 RDW Std Deviation 42.7 fL (36.4-46.3) 01/05/23 06:36 RDW Coeff of Samia 13.3 % (11.5-14.5) 01/05/23 06:36 Plt Count 347 K/uL (130-400) 01/05/23 06:36 MPV 9.2 fL (9.4-12.4) L 01/05/23 06:36 Immature Gran % (Auto) 0.6 % 01/05/23 06:36 Neut % (Auto) 76.5 % 01/05/23 06:36 Lymph % (Auto) 13.8 % 01/05/23 06:36 Franklin % (Auto) 8.5 % 01/05/23 06:36 Eos % (Auto) 0.2 % 01/05/23 06:36 Baso % (Auto) 0.4 % 01/05/23 06:36 Neut # (Auto) 9.39 K/uL (1.40-6.50) H 01/05/23 06:36 Lymph # (Auto) 1.70 K/uL (1.2-3.4) 01/05/23 06:36 Franklin # (Auto) 1.05 K/uL (0.11-0.59) H 01/05/23 06:36 Eos # (Auto) 0.03 K/uL (0-0.50) 01/05/23 06:36 Baso # (Auto) 0.05 K/uL (0-0.2) 01/05/23 06:36 Immature Gran # (Auto) 0.07 K/uL (0.01-0.20) 01/05/23 06:36 ESR 31 mm/hr (0-20) H 01/01/23 08:17 Sodium 142 mmol/L (136-145) 01/05/23 06:36 Potassium 3.5 mmol/L (3.5-5.1) 01/05/23 06:36 Chloride 106 mmol/L (98-107) 01/05/23 06:36 Carbon Dioxide 28 mmol/L (21-32) 01/05/23 06:36 Anion Gap 8 (3-11) 01/05/23 06:36 BUN 11 mg/dl (6-23) 01/05/23 06:36 Creatinine 0.65 mg/dl (0.6-1.2) 01/05/23 06:36 Est Cr Clr Drug Dosing 118.8 ml/min 01/05/23 06:36 Est GFR ( Amer) 120.8 ml/min 01/05/23 06:36 Est GFR (Non-Af Amer) 104.3 ml/min 01/05/23 06:36 BUN/Creatinine Ratio 16.9 (10-20) 01/05/23 06:36 Glucose 98 mg/dl (70-99(Fasting)) 01/05/23 06:36 Calcium 9.3 mg/dl (8.6-10.3) 01/05/23 06:36 Phosphorus 3.8 mg/dl (2.5-4.9) 01/01/23 08:17 Magnesium 1.9 mg/dl (1.7-2.4) 01/01/23 08:17 Total Bilirubin 0.2 mg/dl (0.2-1.0) 01/05/23 06:36 AST 24 U/L (13-39) 01/05/23 06:36 ALT 15 U/L (7-52) 01/05/23 06:36 Alkaline Phosphatase 71 U/L (34-104) 01/05/23 06:36 C-Reactive Protein 0.94 mg/dl (0-0.5) H 01/01/23 08:17 Total Protein 7.1 gm/dl (6.0-8.3) 01/05/23 06:36 Albumin 3.9 gm/dl (3.4-5.0) 01/05/23 06:36 Globulin 3.2 gm/dl (2.5-4.0) 01/05/23 06:36 Albumin/Globulin Ratio 1.2 (0.9-2) 01/05/23 06:36 Lipase 24 U/L (11-82) 12/31/22 20:38 Urine Color Yellow 12/31/22 22:08 Urine Appearance Clear (Clear) 12/31/22 22:08 Urine pH 5.5 (4.5-7.5) 12/31/22 22:08 Ur Specific Gabriels 1.022 (1.000-1.030) 12/31/22 22:08 Urine Protein Trace (Negative) H 12/31/22 22:08 Urine Glucose (UA) Negative (Negative) 12/31/22 22:08 Urine Ketones Negative (Negative) 12/31/22 22:08 Urine Blood 2+ (Negative) H 12/31/22 22:08 Urine Nitrite Negative (Negative) 12/31/22 22:08 Urine Bilirubin Negative (Negative) 12/31/22 22:08 Urine Urobilinogen Negative (Negative) 12/31/22 22:08 Ur Leukocyte Esterase 1+ (Negative) H 12/31/22 22:08 Urine WBC (Auto) 10-30 /hpf (0-5) H 12/31/22 22:08 Urine RBC (Auto) 0-4 /hpf (0-4) 12/31/22 22:08 U Hyaline Cast (Auto) 1-5 /lpf (0-5) 12/31/22 22:08 U Epithel Cells (Auto) 20-30 /lpf (0-5) H 12/31/22 22:08 Urine Bacteria (Auto) Negative (Negative) 12/31/22 22:08 Stl C. cayetanensis PCR Not Detected (NotDetected) 01/01/23 Unknown Stool Rotavirus A PCR Not Detected (NotDetected) 01/01/23 Unknown Stl Adenov F 40/41 PCR Not Detected (NotDetected) 01/01/23 Unknown Stool Astrovirus (PCR) Not Detected (NotDetected) 01/01/23 Unknown Stool Campylobacter PCR Not Detected (NotDetected) 01/01/23 Unknown Stl C. diff Tox B Gene Negative Cdiff Gene (Neg) 01/01/23 Unknown Stool Cryptosporidium PCR Not Detected (NotDetected) 01/01/23 Unknown Stl E.coli Shiga Tox PCR Not Detected (NotDetected) 01/01/23 Unknown Stl Enterotoxigenic E PCR Not Detected (NotDetected) 01/01/23 Unknown Stool EPEC (PCR) Not Detected (NotDetected) 01/01/23 Unknown Stool EAEC (PCR) Not Detected (NotDetected) 01/01/23 Unknown Stl E. histolytica PCR Not Detected (NotDetected) 01/01/23 Unknown Stool Giardia Lamblia PCR Not Detected (NotDetected) 01/01/23 Unknown Stool Salmonella PCR Not Detected (NotDetected) 01/01/23 Unknown Stool Sapovirus (PCR) Not Detected (NotDetected) 01/01/23 Unknown Stl P. shigelloides PCR Not Detected (NotDetected) 01/01/23 Unknown Stl Shigella/EIEC PCR Not Detected (NotDetected) 01/01/[address].enterocolitica PCR Not Detected (NotDetected) 01/01/23 Unknown Stool Vibrio (PCR) Not Detected (NotDetected) 01/01/23 Unknown Stl Vibrio cholerae PCR Not Detected (NotDetected) 01/01/23 Unknown Stl Norovirus GI/GII PCR Not Detected (NotDetected) 01/01/23 Unknown SARS-CoV-2, RNA, NAAT NEGATIVE (NEGATIVE) 01/01/23 00:10 Impressions Abdomen/Pelvis CT 12/31/22 22:02 Exam(s): CT ABDOMEN + PELVIS With Contrast IV Amt: 81ml EXAM: CT Abdomen and Pelvis With Intravenous Contrast CLINICAL HISTORY: Right mid abdominal pain. TECHNIQUE: Axial computed tomography images of the abdomen and pelvis with intravenous contrast. CTDI is 15.9 mGy and DLP is 961.01 mGy-cm. Automated exposure control was utilized for the study. A dose lowering technique was utilized adhering to the principles of ALARA. CONTRAST: Patient received 81ml of IV contrast COMPARISON: 10/10/2020 FINDINGS: Lung bases: Unremarkable. No mass. No consolidation. ABDOMEN: Liver: Unremarkable. No mass. Gallbladder and bile ducts: There are 2 gallstones noted in the gallbladder, not appreciably altered from the previous examination, measuring up to 14 mm. The gallbladder is distended without gallbladder wall thickening. No biliary dilatation. Pancreas: Unremarkable. No mass. No ductal dilation. Spleen: Unremarkable. No splenomegaly. Adrenals: Unremarkable. No mass. Kidneys and ureters: Unremarkable. No solid mass. No hydronephrosis. Stomach and bowel: There are new abnormal distended small bowel loops in the mid abdomen with surrounding mesenteric fat stranding and retained fecal appearing material distally adjacent to an apparent transition point in the anterior abdomen. The transition point is noted immediately adjacent to the postsurgical changes (series 302; images 20-31). Postsurgical changes consistent with right hemicolectomy, stable from the previous examination. The remaining left colon is decompressed without significant stool burden. PELVIS: Appendix: Surgically absent. Bladder: Unremarkable. No mass. Reproductive: Unremarkable as visualized. ABDOMEN and PELVIS: Intraperitoneal space: Unremarkable. No free air. No significant fluid collection. Bones/joints: No acute fracture. No dislocation. Soft tissues: Unremarkable. Vasculature: Unremarkable. No abdominal aortic aneurysm. Lymph nodes: Unremarkable. No enlarged lymph nodes. IMPRESSION: There are new abnormal distended small bowel loops in the mid abdomen with surrounding mesenteric fat stranding and retained fecal appearing material distally adjacent to an apparent transition point in the anterior abdomen. The transition point is noted immediately adjacent to the postsurgical changes (series 302; images 20-31). Findings are most consistent with at least a developing partial small bowel obstruction. No pneumoperitoneum. Electronically signed by: Lester Prieto MD 12/31/22 22:51 PM KUB X-Ray 01/01/23 09:09 KUB HISTORY: Acute abdominal pain with reported small bowel obstruction eval partial sbo COMPARISON: CT abdomen and pelvis 12/31/2022 FINDINGS: There is persistent air-filled dilated loops of small bowel which appear unchanged from the prior study. Contrast noted within the urinary bladder lumen. Cholelithiasis. No renal calculi. No ureteral calculi. No pneumoperitoneum or pneumatosis. No fracture. IMPRESSION: Unchanged appearance of the persistent small bowel obstruction. ACT 112: Negative or not required by law. The above report was generated using voice recognition software. It may contain grammatical, syntax or spelling errors. Electronically signed by: Torey Lindsay M.D. 01/01/2023 10:36 AM Liver Ultrasound 01/03/23 09:56 US liver CLINICAL HISTORY: Rule out acute cholecystitis TECHNIQUE: Multiple real-time sonographic images of the right upper quadrant were obtained. Comparison: Comparison is made to CT abdomen pelvis 12/31/2022 FINDINGS: The liver is diffusely echogenic in appearance with poor ultrasound penetration, with normal contour, which is consistent with fatty infiltration. Liver appears enlarged measuring 16.2 cm. No focal mass lesions are seen. No intrahepatic ductal dilatation is seen. Nonmobile stones are seen in the gallbladder. Gallbladder wall measures 3 mm or greater. A sonographic Arzola's sign was elicited by the last waxer. The common duct measures 0.5 cm in diameter at the level of the hepatic artery. The visualized portions of the pancreas appear normal. The right kidney shows normal echogenicity, cortical thickness and renal contour. The right kidney shows no evidence of hydronephrosis or mass. No ascites or free fluid is seen in Stein's pouch. IMPRESSION: 1. Gallbladder wall thickening, nonmobile stones, and tenderness on exam compatible with acute cholecystitis. 2. Hepatic steatosis. ACT 112: Negative or not required by law. Electronically signed by: Leo Gimenez M.D. 01/03/2023 2:32 PM Hepatobiliary Scan Nuclear Medicine 01/05/23 14:05 NM hepatobiliary CLINICAL HISTORY: Rule out cystic duct obstruction TECHNIQUE: Following the intravenous injection of 5.1 mCi of Tc-99m labeled Technetium 99m mebrofenin, multiple images of the upper abdomen were obtained in the anterior projection with uptake measurements of the gallbladder obtained. Comparison: None available at the time of this dictation. FINDINGS: Sequential images demonstrate normal uptake in the liver, common bile duct, gallbladder, and small bowel. No defects in uptake are identified. Subsequent imaging after the administration of sincalide demonstrates prompt elimination of the radiotracer from the gallbladder. IMPRESSION: Normal uptake of contrast by the gallbladder. No evidence of acute cholecystitis. Reference: Normal gallbladder ejection fraction is greater than 33%. ACT 112: Negative or not required by law. Electronically signed by: Leo Gimenez M.D. 01/05/2023 12:58 PM
[2023-01-05] MEDS: MELATONIN 3 MG TAB PO SCH (20:55)
[2023-01-05] MEDS: GABAPENTIN 600 MG TAB PO SCH (20:59)
[2023-01-06] MEDS: HYDROmorphone INJ 0.5 MG/0.5 ML SYR IV PRN ×7 (01:04→22:00)
[2023-01-06] MEDS: oxyCODONE HCL IR 5 MG TAB (IMMEDIATE RELEASE) PO PRN ×2 (03:01→07:20)
[2023-01-06] MEDS: metroNIDAZOLE 500 MG/100 ML BAG IV SCH ×3 (05:42→21:52)
[2023-01-06] MEDS: ACETAMINOPHEN 325 MG TAB PO PRN (07:21)
--- NOTE | 2023-01-06 07:57 | Surgery Progress Note ---
Date of Service January 06, 2023 Assessment & Plan (1) History of surgery: Plan: Patient says her pain is not under control She is taking Dilaudid and oxycodone Her vital signs are stable, she is tolerating her diet with no emesis or nausea, liver functions have been normal She has not walked in the hallway-which she needs to do I do not think she has severe acute cholecystitis and most this may be coming from the surgical wound I do not want to start her on a MEMBERSHIP ADMINISTRATOR pump as I think it will prolong her recovery We will ask pain therapy to help us Continue low fiber diet as tolerated Continue supportive care and plan for discharge and GI follow-up as an outpatient If she worsens we can repeat her ultrasound to assess her gallbladder and she may need to be transferred To tertiary care for interventional management Admission and Anticipated Discharge Date Admission Date: January 01, 2023 Results & Data Vital Signs (Past 12 Hours) Vital Signs Temp Pulse Pulse Resp BP Pulse Ox O2 Del Method 01/06/23 07:48 76 01/06/23 03:33 36.7 C 81 16 146/77 H 90 Room Air 01/05/23 22:00 77 01/05/23 23:19 36.7 C 71 16 127/74 92 Room Air PG Care Time/CCT Total # of Minutes Spent Total Time Spent with Patient: Total time spent is greater than 50% in coordination of care (as documented) at patient's floor/unit and/or counseling patient: Coding Level of Care Code None Diagnoses History of surgery Z98.890
[2023-01-06] MEDS: buPROPion HCl 75 MG TABLET PO SCH ×2 (09:01→12:52)
[2023-01-06] MEDS: FLUTICASONE PROPIONATE NA SPR 16 GM BTL SCH (09:02)
[2023-01-06] MEDS: FLUoxetine HCL 20 MG CAP PO SCH (09:02)
[2023-01-06] MEDS: HYDROCORTISONE 1% CRM 30 GM TUBE EXT SCH ×2 (09:03→21:50)
[2023-01-06] MEDS: MULTIVITAMIN TAB PO SCH (09:03)
[2023-01-06] MEDS: PANTOprazole 40 MG TAB PO SCH (09:03)
[2023-01-06] MEDS: MERCAPTOPURINE 50 MG TAB PO SCH (09:03)
[2023-01-06] MEDS: NICOTINE 14 MG/24 HR PATCH TD SCH (09:03)
[2023-01-06] MEDS: GABAPENTIN 300 MG CAP PO SCH ×2 (09:03→12:52)
[2023-01-06] MEDS: AMPHETAMINE ASP/SULF/DEXTRAMPH 5 MG TAB PO SCH ×2 (09:13→12:52)
[2023-01-06] MEDS: LORazepam 0.5 MG TAB PO SCH ×3 (09:13→21:49)
[2023-01-06 09:23] LABS: Basophils # (auto) 0.04 K/uL (0-0.2); Basophils % (auto) 0.4 %; Eosinophils # (auto) 0.27 K/uL (0-0.50); Eosinophils % (auto) 2.6 %; Hematocrit (blood only) 36.4 % (37.0-47.0); Hemoglobin 12.2 g/dl (12.0-16.0); Immature Granulocytes # (auto) 0.05 K/uL (0.01-0.20); Immature Granulocytes % (auto) 0.5 %; Lymphocytes # (auto) 1.28 K/uL (1.2-3.4); Lymphocytes % (auto) 12.5 %; Mean Corpuscular Hemoglobin 30.1 pg (25.0-34.0); Mean Corpuscular Hgb Conc 33.5 g/dL (32.0-36.0); Mean Corpuscular Volume 89.9 fL (80.0-100.0); Monocytes # (auto) 0.74 K/uL (0.11-0.59); Monocytes % (auto) 7.2 %; Neutrophils # (auto) 7.86 K/uL (1.40-6.50); Neutrophils % (auto) 76.8 %; Platelet Count 311 K/uL (130-400); RDW Coefficient of Variation 13.2 % (11.5-14.5); RDW Standard Deviation 43.8 fL (36.4-46.3); Red Blood Count 4.05 M/uL (4.20-5.40); White Blood Count 10.24 K/ul (4.8-10.8)
--- NOTE | 2023-01-06 09:29 | Pain Management Consultation ---
Date of Consultation January 06, 2023 Assessment & Plan (1) History of surgery: (2) SBO (small bowel obstruction): (3) Abdominal pain: (4) Crohn's disease: Plan 1. Patient with acute on chronic abdominal pain with history of Crohn's disease, significant abdominal adhesive disease and recent finding of gallbladder disease with an attempted laparoscopic cholecystectomy and lysis of adhesions which was aborted. Patient with persisting increased right upper quadrant abdominal pain since the time of the attempted surgical procedure. Treatment options discussed. Will transition hydromorphone from 0.5 mg Q4 hours to 0.5 mg every 2 hours in an attempt to improve pain control. Consider transitioning to hydromorphone DIAMOND EXPERT for 24 to 48 hours with persisting difficulties with pain control. 2. Patient may continue with Oxy IR 5 mg every 4 hours as needed breakthrough pain 3. I see no benefit of any added adjuvant medications at this time You for allowing us to participate in the care of Mrs. Cruz History of Present Illness Reason for Consultation: Intractable abdominal pain Requesting Physician: Alexx Garrett MD Attending Physician: Sergey Fernandez MD History of Present Illness Mrs. Cruz is a 47-year-old white female who was admitted with complaints of abdominal pain with past medical history significant for Crohn's disease and multiple prior abdominal surgical procedures with known abdominal adhesive disease. Patient was found to have small bowel obstruction upon admission which did appear to have improved but she had persisting right upper quadrant abdominal pain. Due to suspected gallbladder disease contributing to her pain complaint cholecystectomy was attempted with exploratory laparotomy and lysis of adhesions, but the procedure was ultimately aborted due to severe adhesive disease. Patient is complaining of persistent and sharp right upper quadrant abdominal pain since time of the surgical procedure. Pain is slightly increased in sharpness and severity as it was prior to the surgical procedure. She reports some generalized chronic abdominal pain without significant change. She rates her pain a 4/10 at its best and 8/10 at its worst. Her pain is increased with any movement and attempted use of the abdominal musculature. She reports her pain is 4/10 at its best with use of IV hydromorphone lasting approximately 2 hours only. She is tolerating the medication without notable side effects. She is moving her bowels but has poor appetite. She denies nausea or vomiting. She reports the pain can occasionally radiate to the thoracic flank region. She denies any ration of pain into the chest wall or right shoulder. She denies increased pain with deep breathing, coughing or sneezing. Patient has no f urther constitution complaints. Plan of care discussed with Dr. Arin Campbell. Pain Assessment Full Body Front + Back: 1. Right upper quadrant abdomen Pain scale - at its best (0-10): 4 Allergies Allergy/AdvReac Type Severity Reaction Status Date / Time No Known Allergies Allergy Verified 01/04/23 10:48 Home Medications Medication Instructions Recorded Confirmed Type azelastine 137 mcg (0.1 %) nasal 2 spray intranasal BID PRN Nasal 04/29/22 12/31/22 History spray aerosol Congestion bupropion HCl 75 mg tablet 150 mg PO BID 04/29/22 12/31/22 History calcium carbonate 500 mg-vitamin 1 tab PO HS 04/29/22 12/31/22 History D3 5 mcg (200 unit) tablet (Calcium 500 + D) fluoxetine 40 mg capsule 80 mg PO DAILY 04/29/22 12/31/22 History fluticasone propionate 50 2 spray intranasal DAILY 04/29/22 12/31/22 History mcg/actuation nasal spray,suspension gabapentin 300 mg capsule 300 mg PO BID 04/29/22 12/31/22 History gabapentin 600 mg tablet 600 mg PO HS 04/29/22 12/31/22 History lorazepam 0.5 mg tablet 0.5 mg PO TID 04/29/22 12/31/22 History melatonin 5 mg tablet 5 mg PO HS 04/29/22 12/31/22 History mercaptopurine 50 mg tablet 50 mg PO QAM 04/29/22 12/31/22 History omega-3 fatty acids 1,000 mg 1,000 mg PO QPM 04/29/22 12/31/22 History capsule pantoprazole 40 mg tablet,delayed 40 mg PO DAILY 04/29/22 12/31/22 History release potassium chloride 10 mEq 10 meq PO HS 04/29/22 12/31/22 History capsule,extended release ustekinumab 90 mg/mL subcutaneous 90 mg subcut .[id number] 04/29/22 12/31/22 History syringe (Stelara) dextroamphetamine-amphetamine 5 mg 5 mg PO BID 12/31/22 12/31/22 History tablet diphenoxylate-atropine 2.5 1 tab PO DAILY PRN Diarrhea 12/31/22 12/31/22 History mg-0.025 mg tablet (Lomotil) multivitamin 1 tab PO DAILY 12/31/22 12/31/22 History sodium chloride 0.65 % nasal spray 2 spray intranasal DIRECTED PRN 12/31/22 12/31/22 History aerosol (Saline Nasal) NASAL DRYNESS Pain History Pain Intensity Pain scale - at its best (0-10): 4 Patient History Medical History (Updated 01/04/23 @ 10:23 by Lefty Velázquez MD) Abnormal CT scan, chest Cholelithiasis Chronic maxillary sinusitis Crohn's disease Depression with anxiety Encounter for pre-operative examination History of Clostridioides difficile colitis History of deviated nasal septum History of erythema nodosum History of uveitis Prolonged QT interval Tobacco abuse Surgical History (Updated 01/05/23 @ 06:45 by Alexx Garrett MD, FACS) History of colectomy History of colonoscopy Last 07/2019 History of rhinoplasty Multiple nasal surgeries x3 History of surgery (01/04/23) Attempted Laparoscopy, Exploratory Laparotomy, Lysis of Adhesions(Not Applicable) - Alexx Garrett MD, FACS Family History Father Heart disease TIA (transient ischemic attack) Mother Heart disease FH: diverticulitis Sister Crohn's disease Diabetes Social History Smoking Status: Current every day smoker Tobacco Type: Cigarettes Cigarettes Per Day: 10; Second Hand Exposure: No; Do You Dip or Chew Tobacco: No; Tobacco Cessation Education Requested by Patient: No Hx Alcohol Use: Yes Alcohol type: wine Alcohol type Comment: Once a month Hx Substance Use: No Preferred Language: Maltese Communication Ability: Effective Retirement Administrator Required: No Beliefs That Will Affect Care: None marital status: Single Current Living Situation: Alone Current Living Situation Comment: room mate Other Information That Helps Us Care for You: No Feels Safe at Home: Yes Safety Concerns: Feels Safe At This Time Assistive Devices: None Physical Exam Physical Exam: General: Patient lying quietly in exam room in no acute distress. Speech and thought process appropriate. Mood and affect appropriate. Cognition intact. Head: Normocephalic and atraumatic. ENT: No evidence of nasal or oral mucosal lesions. Mucous membranes are moist. Eyes: Pupils equal round reactive to light. Neck: Supple without adenopathy and full range of motion. Chest: Nontender to palpation of the costosternal junction. Nontender to AP or lateral compression of the chest wall. No costal margin tenderness to palpation. Abdomen: Soft and nondistended. No organomegaly. Bowel sounds active. Dressings were not removed for visual inspection of the incisional sites. She has generalized tenderness to palpation in the right upper quadrant as well as the entire abdomen. No rebound or guarding was appreciated. Increased pain with any attempted hip flexion maneuvering bilaterally. Lower extremities: Strength testing 5/5 and equal. No appreciable edema. Sensation intact without deficit. Neurologic: Cranial nerves grossly intact. Ambulatory function not witnessed. Results (Pain Clinic) Diagnostic Review CT Findings: [place], [place] [phone] CT Scan Report Patient:BREEZY CRUZ Admit Date:12/31/22 MR#:[id number] Address1:[address] [place] [address] Acct ID:[id number] Address2:[place] [address] Date:1975 [facility] Zip:[place] [address] Age:47 Location:ED Sex:F Room/Bed: Att Phy: Diagnosis:ABDOMINAL PAIN, HX OF GI ISSUES Kait Phy:Giovany Correa DO Service Date:12/31/22 Fam Phy: Interpreting Phy:Lester Prieto [facility] Phy: Ordering Phy:Joseph Montoya DO cc: ~ Exam(s): CT ABDOMEN + PELVIS With Contrast IV Amt: 81ml EXAM: CT Abdomen and Pelvis With Intravenous Contrast CLINICAL HISTORY: Right mid abdominal pain. TECHNIQUE: Axial computed tomography images of the abdomen and pelvis with intravenous contrast. CTDI is 15.9 mGy and DLP is 961.01 mGy-cm. Automated exposure control was utilized for the study. A dose lowering technique was utilized adhering to the principles of ALARA. CONTRAST: Patient received 81ml of IV contrast COMPARISON: 10/10/2020 FINDINGS: Lung bases: Unremarkable. No mass. No consolidation. ABDOMEN: Liver: Unremarkable. No mass. Gallbladder and bile ducts: There are 2 gallstones noted in the gallbladder, not appreciably altered from the previous examination, measuring up to 14 mm. The gallbladder is distended without gallbladder wall thickening. No biliary dilatation. Pancreas: Unremarkable. No mass. No ductal dilation. Spleen: Unremarkable. No splenomegaly. Adrenals: Unremarkable. No mass. Kidneys and ureters: Unremarkable. No solid mass. No hydronephrosis. Stomach and bowel: There are new abnormal distended small bowel loops in the mid abdomen with surrounding mesenteric fat stranding and retained fecal appearing material distally adjacent to an apparent transition point in the anterior abdomen. The transition point is noted immediately adjacent to the postsurgical changes (series 302; images 20-31). Postsurgical changes consistent with right hemicolectomy, stable from the previous examination. The remaining left colon is decompressed without significant stool burden. PELVIS: Appendix: Surgically absent. Bladder: Unremarkable. No mass. Reproductive: Unremarkable as visualized. ABDOMEN and PELVIS: Intraperitoneal space: Unremarkable. No free air. No significant fluid collection. Bones/joints: No acute fracture. No dislocation. Soft tissues: Unremarkable. Vasculature: Unremarkable. No abdominal aortic aneurysm. Lymph nodes: Unremarkable. No enlarged lymph nodes. IMPRESSION: There are new abnormal distended small bowel loops in the mid abdomen with surrounding mesenteric fat stranding and retained fecal appearing material distally adjacent to an apparent transition point in the anterior abdomen. The transition point is noted immediately adjacent to the postsurgical changes (series 302; images 20-31). Findings are most consistent with at least a developing partial small bowel obstruction. No pneumoperitoneum. Electronically signed by: Lester Prieto MD 12/31/22 22:51 PM Dictated:12/31/222250 Transcribed: 12/31/222250 Other Findings: [place], [place] [phone] Nuclear Medicine Report Patient:BREEZY CRUZ Admit Date:01/01/23 MR#:[id number] Address1:[address] Acct ID:[id number] Address2: [address] Date:1975 [facility] Zip:[place] [address] Age:47 Location:2W Sex:F Room/Bed:W2[facility] Att Phy:Mingo Jaquez MD Diagnosis:HTN URG. SBO Kait Phy:Giovany Correa DO Service Date:01/05/23 Fam Phy: Interpreting Phy:Leo Gimenez MDAdmit Phy:Reynaldo Soto MD Ordering Phy:Alexx Garrett MD cc: ~ NM hepatobiliary CLINICAL HISTORY: Rule out cystic duct obstruction TECHNIQUE: Following the intravenous injection of 5.1 mCi of Tc-99m labeled Silvana hnetium 99m mebrofenin, multiple images of the upper abdomen were obtained in the anterior projection with uptake measurements of the gallbladder obtained. Comparison: None available at the time of this dictation. FINDINGS: Sequential images demonstrate normal uptake in the liver, common bile duct, gallbladder, and small bowel. No defects in uptake are identified. Subsequent imaging after the administration of sincalide demonstrates prompt elimination of the radiotracer from the gallbladder. IMPRESSION: Normal uptake of contrast by the gallbladder. No evidence of acute cholecystitis. Reference: Normal gallbladder ejection fraction is greater than 33%. ACT 112: Negative or not required by law. Electronically signed by: Leo Gimenez M.D. 01/05/2023 12:58 PM Dictated:01/05/23921 Transcribed: 01/05/23921 [place], [place] [phone] Ultrasound Report Patient:BREEZY CRUZ Admit Date:01/01/23 MR#:[id number] Address1:[address] [place], [place] [address] Acct ID:[id number] Address2:[place] [address] Date:1975 [facility] Zip:[place] [address] Age:47 Location:2W Sex:F Room/Bed:[facility] Att Phy:Mingo Jaquez MD Diagnosis:HTN URG. SBO Kait Phy:Giovany Correa DO Service Date:01/03/23 Fam Phy: Interpreting Phy:Leo Gimenez [facility] Phy:Reynaldo Soto MD Ordering Phy:Mingo Jaquez MD cc: ~ US liver CLINICAL HISTORY: Rule out acute cholecystitis TECHNIQUE: Multiple real-time sonographic images of the right upper quadrant were obtained. Comparison: Comparison is made to CT abdomen pelvis 12/31/2022 FINDINGS: The liver is diffusely echogenic in appearance with poor ultrasound penetration, with normal contour, which is consistent with fatty infiltration. Liver appears enlarged measuring 16.2 cm. No focal mass lesions are seen. No intrahepatic ductal dilatation is seen. Nonmobile stones are seen in the gallbladder. Gallbladder wall measures 3 mm or greater. A sonographic Arzola's sign was elicited by the sales incentive analyst. The common duct measures 0.5 cm in diameter at the level of the hepatic artery. The visualized portions of the pancreas appear normal. The right kidney shows normal echogenicity, cortical thickness and renal contour. The right kidney shows no evidence of hydronephrosis or mass. No ascites or free fluid is seen in Stein's pouch. IMPRESSION: 1. Gallbladder wall thickening, nonmobile stones, and tenderness on exam compatible with acute cholecystitis. 2. Hepatic steatosis. ACT 112: Negative or not required by law. Electronically signed by: Leo Gimenez M.D. 01/03/2023 2:32 PM Dictated:01/03/23 1424 Transcribed: 01/03/23 1426
[2023-01-06 09:46] LABS: Albumin Globulin Ratio 1.2 (0.9-2); Albumin Level 3.8 gm/dl (3.4-5.0); BUN Creatinine Ratio 22.7 (10-20); Bilirubin,Total 0.3 mg/dl (0.2-1.0); Calcium 9.1 mg/dl (8.6-10.3); Creatinine Clr Calc Pharmacy 116.8 ml/min; Est GFR (African American) 120.2 ml/min; Est GFR (Non-African American) 103.7 ml/min; Globulin 3.1 gm/dl (2.5-4.0); Potassium 3.2 mmol/L (3.5-5.1); Total Protein 6.9 gm/dl (6.0-8.3)
[2023-01-06] MEDS: cefTRIAXone SODIUM 2,000 MG in DEXTROSE 5% 50 ML IV SCH (15:09)
--- NOTE | 2023-01-06 17:13 | Hospitalist Progress Note ---
Date of Service January 06, 2023 Assessment & Plan (1) Acute cholecystitis: (2) SBO (small bowel obstruction): Plan: per Dr. Jaquez's notes with addendum: Medical history significant for Crohn's disease status post surgery on immunosuppressive regimen, History of multiple abdominal surgeries Right mid abdominal pain on admission CT abdomen and pelvis showed abnormal distended small bowel loops in mid abdomen with surrounding mesenteric fat stranding. Distended gallbladder Right upper quadrant ultrasound was concerning for acute cholecystitis. Surgery attempted laparoscopy on 01/04/2023; she was found to have bowel severely adherent to her fascia. Right upper quadrant incision was made; severe adhesions of her bowel to the fascia. HIDA scan rules out acute cholecystitis. GI to follow outpatient and discuss about need for axios placement for gallbladd er drainage Discussed with surgery; since HIDA scan negative. Plan is to advance diet as tolerated. Pain control. And continue antibiotic. If patient continues to show signs of improvement in the next 1 to 2 days. Discharged with follow-up with GI. 01/06 Having significant pain today, pain management consulted, Dilaudid increased to every 2 hours. Continue oxycodone as needed Positive BMs On low fiber diet Chronic conditions; ADDcontinue home meds Anxietycontinue bupropion, Ativan Chron's diseaseon Stelara every 8 weeks Full code Lovenox for DVT prophylaxis Dispositionfrom home; likely DC in 1 to 2 days. Admission and Anticipated Discharge Date Admission Date: January 01, 2023 Subjective Follow-up for small bowel obstruction, etc seen resting in bed, comfortable, not having distress states she is still having significant abdominal pain, mostly on the incision site in the right upper quadrant Has occasional nausea, +2 loose BMs no chest pain, dyspnea, palpitations, dizziness no other symptoms Review of Systems Review of Systems: all noted and negative except for above Physical Exam Physical Exam: General- oriented x 3, not in distress, speaks in sentences with no effort or accessory muscle use Eyes- anicteric Neck- no JVD Lungs- clear breath sounds bilaterally, no rales/wheezes Heart- normal rate, regular rhythm; no murmurs Abdomen- normal bowel sounds, nondistended, soft, Right upper quadrant: Incision site with dressing in place, no bleeding or discharge Mild tenderness Extremities- no pretibial edema, no calf tenderness Neuro- alert, oriented x 3; no gross focal neurologic deficits Skin- warm & dry Results & Data Results & Data Vital Signs (Past 12 Hours) Vital Signs Temp Pulse Pulse Resp BP Pulse Ox O2 Del Method 01/06/23 15:52 36.9 C 87 16 127/80 90 Room Air 01/06/23 11:00 36.7 C 77 16 147/78 H 99 Room Air 01/06/23 07:59 36.8 C 80 16 162/79 H 93 Room Air 01/06/23 07:48 76 all noted and reviewed including below
[2023-01-06] MEDS: MELATONIN 3 MG TAB PO SCH (21:49)
[2023-01-06] MEDS: GABAPENTIN 600 MG TAB PO SCH (21:49)
[2023-01-07] MEDS: HYDROmorphone INJ 0.5 MG/0.5 ML SYR IV PRN ×10 (00:49→22:44)
[2023-01-07] MEDS: metroNIDAZOLE 500 MG/100 ML BAG IV SCH ×3 (05:09→22:23)
[2023-01-07] MEDS: GABAPENTIN 300 MG CAP PO SCH ×2 (08:17→11:50)
[2023-01-07] MEDS: MERCAPTOPURINE 50 MG TAB PO SCH (08:17)
[2023-01-07] MEDS: NICOTINE 14 MG/24 HR PATCH TD SCH (08:17)
[2023-01-07] MEDS: MULTIVITAMIN TAB PO SCH (08:17)
[2023-01-07] MEDS: buPROPion HCl 75 MG TABLET PO SCH ×2 (08:17→11:50)
[2023-01-07] MEDS: FLUTICASONE PROPIONATE NA SPR 16 GM BTL SCH (08:18)
[2023-01-07] MEDS: FLUoxetine HCL 20 MG CAP PO SCH (08:18)
[2023-01-07] MEDS: HYDROCORTISONE 1% CRM 30 GM TUBE EXT SCH ×2 (08:18→20:42)
[2023-01-07] MEDS: PANTOprazole 40 MG TAB PO SCH (08:18)
[2023-01-07] MEDS: LORazepam 0.5 MG TAB PO SCH ×3 (08:42→20:41)
[2023-01-07] MEDS: AMPHETAMINE ASP/SULF/DEXTRAMPH 5 MG TAB PO SCH ×2 (08:42→11:50)
[2023-01-07 09:02] LABS: Est GFR (African American) 125.4 ml/min; Est GFR (Non-African American) 108.2 ml/min
[2023-01-07] MEDS: cefTRIAXone SODIUM 2,000 MG in DEXTROSE 5% 50 ML IV SCH (14:04)
--- NOTE | 2023-01-07 18:20 | Hospitalist Progress Note ---
Date of Service January 07, 2023 Assessment & Plan (1) Acute cholecystitis: (2) SBO (small bowel obstruction): Plan: per Dr. Jaquez's notes with addendum: Medical history significant for Crohn's disease status post surgery on immunosuppressive regimen, History of multiple abdominal surgeries Right mid abdominal pain on admission CT abdomen and pelvis showed abnormal distended small bowel loops in mid abdomen with surrounding mesenteric fat stranding. Distended gallbladder Right upper quadrant ultrasound was concerning for acute cholecystitis. Surgery attempted laparoscopy on 01/04/2023; she was found to have bowel severely adherent to her fascia. Right upper quadrant incision was made; severe adhesions of her bowel to the fascia. HIDA scan rules out acute cholecystitis. GI to follow outpatient and discuss about need for axios placement for gallbladd er drainage Discussed with surgery; since HIDA scan negative. Plan is to advance diet as tolerated. Pain control. And continue antibiotic. If patient continues to show signs of improvement in the next 1 to 2 days. Discharged with follow-up with GI. 01/07 Patient reports surgical site pain is improving today Continue as needed Dilaudid Pain management consulted Chronic conditions; ADDcontinue home meds Anxietycontinue bupropion, Ativan Chron's diseaseon Stelara every 8 weeks Full code Lovenox for DVT prophylaxis Dispositionfrom home; likely DC in 1 to 2 days. Admission and Anticipated Discharge Date Admission Date: January 01, 2023 Subjective Follow-up for SBO, etc. Seen resting in bed, not in distress, watching movie from the computer States she is still having significant right upper quadrant incisional pain today but improving compared to yesterday Denies nausea or vomiting, positive BMs No fevers or chills, shortness of breath, chest pain No other symptom Review of Systems Review of Systems: all noted and negative except for above Physical Exam Physical Exam: General- oriented x 3, not in distress, speaks in sentences with no effort or accessory muscle use Eyes- anicteric Neck- no JVD Lungs- clear breath sounds bilaterally, no rales/wheezes Heart- normal rate, regular rhythm; no murmurs Abdomen- normal bowel sounds, nondistended, soft, no tenderness Extremities- no pretibial edema, no calf tenderness Neuro- alert, oriented x 3; no gross focal neurologic deficits Skin- warm & dry Results & Data Results & Data Vital Signs (Past 12 Hours) Vital Signs Temp Pulse Pulse Resp BP Pulse Ox O2 Del Method 01/07/23 16:56 89 01/07/23 15:45 37.2 C 91 H 19 142/87 H 90 Room Air 01/07/23 11:49 37.0 C 87 16 137/77 92 Room Air 01/07/23 07:49 36.9 C 84 16 146/75 H 90 Room Air 01/07/23 07:44 79 all noted and reviewed including below
[2023-01-07] MEDS ORDERED: POTASSIUM CHLORIDE CRTAB 20 MEQ TABCR PO STA (18:22)
[2023-01-07] MEDS: GABAPENTIN 600 MG TAB PO SCH (20:41)
[2023-01-07] MEDS: MELATONIN 3 MG TAB PO SCH (20:42)
[2023-01-08] MEDS: HYDROmorphone INJ 0.5 MG/0.5 ML SYR IV PRN ×6 (02:25→13:22)
[2023-01-08] MEDS: metroNIDAZOLE 500 MG/100 ML BAG IV SCH ×2 (05:41→13:18)
[2023-01-08] MEDS: LORazepam 0.5 MG TAB PO SCH (08:45)
[2023-01-08] MEDS: AMPHETAMINE ASP/SULF/DEXTRAMPH 5 MG TAB PO SCH ×2 (08:45→11:56)
[2023-01-08] MEDS: buPROPion HCl 75 MG TABLET PO SCH ×2 (08:45→11:57)
[2023-01-08] MEDS: MERCAPTOPURINE 50 MG TAB PO SCH (08:46)
[2023-01-08] MEDS: GABAPENTIN 300 MG CAP PO SCH ×2 (08:46→11:57)
[2023-01-08] MEDS: NICOTINE 14 MG/24 HR PATCH TD SCH (08:46)
[2023-01-08] MEDS: FLUoxetine HCL 20 MG CAP PO SCH (08:46)
[2023-01-08] MEDS: HYDROCORTISONE 1% CRM 30 GM TUBE EXT SCH (08:46)
[2023-01-08] MEDS: FLUTICASONE PROPIONATE NA SPR 16 GM BTL SCH (08:46)
[2023-01-08] MEDS: MULTIVITAMIN TAB PO SCH (08:46)
[2023-01-08] MEDS: PANTOprazole 40 MG TAB PO SCH (08:46)
--- NOTE | 2023-01-08 09:51 | Surgery Progress Note ---
Date of Service January 08, 2023 Assessment & Plan (1) History of surgery: Plan: I walked in the room, patient was eating her breakfast-she said I want to go home She can be discharged from a surgical standpoint Discharge information done, prescription for oxycodone sent We will follow-up in office next week for wound check and some staple removal Patient will need follow-up with GI If she has recurrent problems from a biliary standpoint she would likely need to be transferred to [place] For interventional radiology/advanced endoscopic procedures Admission and Anticipated Discharge Date Admission Date: January 01, 2023 Results & Data Vital Signs (Past 12 Hours) Vital Signs Temp Pulse Pulse Pulse Resp BP BP 01/08/23 07:39 37.0 C 77 16 129/72 01/08/23 07:25 75 01/08/23 04:00 36.5 C 88 18 135/86 01/07/23 22:01 78 01/07/23 22:41 36.8 C 79 18 146/72 H Pulse Ox O2 Del Method 01/08/23 07:39 93 Room Air 01/08/23 07:25 01/08/23 04:00 90 Room Air 01/07/23 22:01 01/07/23 22:41 91 Room Air PG Care Time/CCT Total # of Minutes Spent Total Time Spent with Patient: Total time spent is greater than 50% in coordination of care (as documented) at patient's floor/unit and/or counseling patient: Coding Level of Care Code None Diagnoses History of surgery Z98.890
[2023-01-08 10:17] LABS: Basophils # (auto) 0.04 K/uL (0-0.2); Basophils % (auto) 0.4 %; Eosinophils # (auto) 0.44 K/uL (0-0.50); Eosinophils % (auto) 4.1 %; Hematocrit (blood only) 36.5 % (37.0-47.0); Hemoglobin 12.2 g/dl (12.0-16.0); Immature Granulocytes # (auto) 0.04 K/uL (0.01-0.20); Immature Granulocytes % (auto) 0.4 %; Lymphocytes % (auto) 13.9 %; Mean Corpuscular Hemoglobin 29.9 pg (25.0-34.0); Mean Corpuscular Hgb Conc 33.4 g/dL (32.0-36.0); Mean Corpuscular Volume 89.5 fL (80.0-100.0); Mean Platelet Volume 9.1 fL (9.4-12.4); Monocytes # (auto) 0.84 K/uL (0.11-0.59); Monocytes % (auto) 7.8 %; Neutrophils # (auto) 7.91 K/uL (1.40-6.50); Neutrophils % (auto) 73.4 %; Platelet Count 339 K/uL (130-400); RDW Coefficient of Variation 13.1 % (11.5-14.5); RDW Standard Deviation 42.5 fL (36.4-46.3); Red Blood Count 4.08 M/uL (4.20-5.40); White Blood Count 10.77 K/ul (4.8-10.8)
[2023-01-08 10:29] LABS: Albumin Level 3.6 gm/dl (3.4-5.0); BUN Creatinine Ratio 14.3 (10-20); Bilirubin Direct 0.1 mg/dl (0-0.2); Bilirubin,Total 0.4 mg/dl (0.2-1.0); Calcium 8.9 mg/dl (8.6-10.3); Creatinine Clr Calc Pharmacy 137.9 ml/min; Est GFR (African American) 126.9 ml/min; Est GFR (Non-African American) 109.5 ml/min; Potassium 3.1 mmol/L (3.5-5.1); Total Protein 6.9 gm/dl (6.0-8.3)
[2023-01-08] MEDS ORDERED: POTASSIUM CHLORIDE CRTAB 20 MEQ TABCR PO STA (10:36)
--- NOTE | 2023-01-08 12:57 | Hospitalist Progress Note ---
Date of Service January 08, 2023 Assessment & Plan (1) Acute cholecystitis: (2) SBO (small bowel obstruction): Plan: per Dr. Jaquez's notes with addendum: Medical history significant for Crohn's disease status post surgery on immunosuppressive regimen, History of multiple abdominal surgeries Right mid abdominal pain on admission CT abdomen and pelvis showed abnormal distended small bowel loops in mid abdomen with surrounding mesenteric fat stranding. Distended gallbladder Right upper quadrant ultrasound was concerning for acute cholecystitis. Surgery attempted laparoscopy on 01/04/2023; she was found to have bowel severely adherent to her fascia. Right upper quadrant incision was made; severe adhesions of her bowel to the fascia. HIDA scan rules out acute cholecystitis. GI to follow outpatient and discuss about need for axios placement for gallbladd er drainage Discussed with surgery; since HIDA scan negative. Plan is to advance diet as tolerated. Pain control. And continue antibiotic. If patient continues to show signs of improvement in the next 1 to 2 days. Discharged with follow-up with GI. 01/08 Patient reports surgical site pain is more manageable Afebrile, LFTs okay Cleared for discharge by general surgery Discharge medications: As needed oxycodone Augmentin twice daily x1 week Potassium supplement Follow-up with general surgery Dr. Garrett in 1 week Follow-up with conference concierge Chronic conditions; ADDcontinue home meds Anxietycontinue bupropion, Ativan Chron's diseaseon Stelara every 8 weeks Full code Lovenox for DVT prophylaxis Dispositiondischarge to home plan of care discussed with patient in detail all questions answered she is understanding, agreeable, comfortable with the plan of care Admission and Anticipated Discharge Date Admission Date: January 01, 2023 Subjective Follow-up for small bowel obstruction, etc. Seen sitting up in bed, comfortable, in good spirits States she feels better overall Incisional pain more manageable No nausea or vomiting, fevers or chills Positive BMs no chest pain, dyspnea, palpitations, dizziness Ambulating with no problems States she is ready for discharge today Review of Systems Review of Systems: all noted and negative except for above Physical Exam Physical Exam: General- oriented x 3, not in distress, speaks in sentences with no effort or accessory muscle use Eyes- anicteric Neck- no JVD Lungs- clear breath sounds bilaterally, no rales/wheezes Heart- normal rate, regular rhythm; no murmurs Abdomen- normal bowel sounds, nondistended, soft, nontender Extremities- no pretibial edema, no calf tenderness Neuro- alert, oriented x 3; no gross focal neurologic deficits Skin- warm & dry Results & Data Results & Data Vital Signs (Past 12 Hours) Vital Signs Temp Pulse Pulse Pulse Resp BP BP 01/08/23 07:39 37.0 C 77 16 129/72 01/08/23 07:25 75 01/08/23 04:00 36.5 C 88 18 135/86 Pulse Ox O2 Del Method 01/08/23 07:39 93 Room Air 01/08/23 07:25 01/08/23 04:00 90 Room Air all noted and reviewed including below
--- NOTE | 2023-01-08 18:04 | Discharge Summary ---
Discharge Summary Date of Service January 08, 2023 Notes For Next Care Provider Medication Changes From Visit Augmentin twice daily Oxycodone as needed Potassium 20 meq daily x1 week Admission HPI Per Admitting Provider History obtained from patient and records. Medical history significant for Crohn's disease status post surgery on immunosuppressive regimen, ADD, anxiety/mood disorder RLS, history of prolonged QTc, ongoing tobacco abuse. Few days history of achy right mid abdominal pain with watery diarrhea symptoms. No fever, no chills. No chest pain, no SOB. Some nausea without emesis. Symptoms somewhat worse with motion. Denies headache symptoms. Patient consulted ER. Highest SBP noted to be 180s. Medical History as above 2021 colonoscopy did not show evidence of active IBD. 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 Admission Exam Per Admitting Provider GENERAL: Comfortable, slightly anxious, no respiratory distress SKIN: Normal color, warm HEENT: [place] palpebral conjunctivae, no ptosis, dry buccal mucosa NECK : Supple, no tenderness CHEST : CTA, no tenderness HEART : RRR, no obvious murmurs ABDOMEN: Some distention, right flank tenderness EXTREMITIES : No LE swelling/tenderness, no other conspicuous deformities noted NEUROLOGIC : Coherent, no facial asymmetry, no other gross focality Principal Dx & Hospital Course #1 = Principal Diagnosis (1) Acute cholecystitis: (2) SBO (small bowel obstruction): per Dr. Jaquez's notes with addendum: Medical history significant for Crohn's disease status post surgery on immunosuppressive regimen, History of multiple abdominal surgeries Right mid abdominal pain on admission CT abdomen and pelvis showed abnormal distended small bowel loops in mid abdomen with surrounding mesenteric fat stranding. Distended gallbladder Right upper quadrant ultrasound was concerning for acute cholecystitis. Surgery attempted laparoscopy on 01/04/2023; she was found to have bowel severely adherent to her fascia. Right upper quadrant incision was made; severe adhesions of her bowel to the fascia. HIDA scan rules out acute cholecystitis. GI to follow outpatient and discuss about need for axios placement for gallbladder drainage Discussed with surgery; since HIDA scan negative. Plan is to advance diet as tolerated. Pain control. And continue antibiotic. If patient continues to show signs of improvement in the next 1 to 2 days. Discharged with follow-up with GI. 01/08 Dilaudid increased to every 2 hours per pain management recommendations Patient reports surgical site pain is more manageable Afebrile, LFTs okay Tolerating diet well Cleared for discharge by general surgery Discharge medications: As needed oxycodone Augmentin twice daily x1 week Potassium supplement Follow-up with general surgery Dr. Garrett in 1 week Follow-up with manager water Chronic conditions; ADDcontinue home meds Anxietycontinue bupropion, Ativan Chron's diseaseon Stelara every 8 weeks Full code Lovenox for DVT prophylaxis Dispositiondischarge to home plan of care discussed with patient in detail all questions answered she is understanding, agreeable, comfortable with the plan of care Discharge Exam General- oriented x 3, not in distress, speaks in sentences with no effort or accessory muscle use Eyes- anicteric Neck- no JVD Lungs- clear breath sounds bilaterally, no rales/wheezes Heart- normal rate, regular rhythm; no murmurs Abdomen- normal bowel sounds, nondistended, soft, no tenderness Extremities- no pretibial edema, no calf tenderness Neuro- alert, oriented x 3; no gross focal neurologic deficits Skin- warm & dry Updated Medication List Medication Instructions Recorded Confirmed Type azelastine 137 mcg (0.1 %) nasal 2 spray intranasal BID PRN Nasal 04/29/22 12/31/22 History spray aerosol Congestion bupropion HCl 75 mg tablet 150 mg PO BID 04/29/22 12/31/22 History calcium carbonate 500 mg-vitamin 1 tab PO HS 04/29/22 12/31/22 History D3 5 mcg (200 unit) tablet (Calcium 500 + D) fluoxetine 40 mg capsule 80 mg PO DAILY 04/29/22 12/31/22 History fluticasone propionate 50 2 spray intranasal DAILY 04/29/22 12/31/22 History mcg/actuation nasal spray,suspension gabapentin 300 mg capsule 300 mg PO BID 04/29/22 12/31/22 History gabapentin 600 mg tablet 600 mg PO HS 04/29/22 12/31/22 History lorazepam 0.5 mg tablet 0.5 mg PO TID 04/29/22 12/31/22 History melatonin 5 mg tablet 5 mg PO HS 04/29/22 12/31/22 History mercaptopurine 50 mg tablet 50 mg PO QAM 04/29/22 12/31/22 History omega-3 fatty acids 1,000 mg 1,000 mg PO QPM 04/29/22 12/31/22 History capsule pantoprazole 40 mg tablet,delayed 40 mg PO DAILY 04/29/22 12/31/22 History release ustekinumab 90 mg/mL subcutaneous 90 mg subcut .[id number] 04/29/22 12/31/22 History syringe (Stelara) dextroamphetamine-amphetamine 5 mg 5 mg PO BID 12/31/22 12/31/22 History tablet diphenoxylate-atropine 2.5 1 tab PO DAILY PRN Diarrhea 12/31/22 12/31/22 History mg-0.025 mg tablet (Lomotil) multivitamin 1 tab PO DAILY 12/31/22 12/31/22 History sodium chloride 0.65 % nasal spray 2 spray intranasal DIRECTED PRN 12/31/22 12/31/22 History aerosol (Saline Nasal) NASAL DRYNESS amoxicillin 875 mg-potassium 1 tab PO BID #10 tabs 01/08/23 Rx clavulanate 125 mg tablet oxycodone 5 mg tablet 5 - 10 mg PO Q6H PRN pain #30 tabs 01/08/23 Rx potassium chloride 10 mEq 20 meq PO DAILY 7 days #14 tabs 01/08/23 Rx tablet,extended release Hospital Stay Data Consultations 12/31/22 23:20 Consult General Surgery Stat 12/31/22 23:21 ED Decision to Admit Stat 01/01/23 08:02 Consult Gastroenterology Routine 01/06/23 07:50 Consult Pain Management Stat Procedures Performed Operation Date: 01/04/23 13:10 Actual Procedures s Attempted Laparoscopy, (Not Applicable) - Alexx Garrett MD, FACS p Exploratory Laparotomy, Lysis of Adhesions(Not Applicable) - Alexx Garrett MD, FACS Diagnostic Imagining Performed 12/31/22 22:02 CT Abd and Pelvis [CT abd pelvis IV con only] Stat CONTRAST: Patient received 81ml of IV contrast COMPARISON: 10/10/2020 FINDINGS: Lung bases: Unremarkable. No mass. No consolidation. ABDOMEN: Liver: Unremarkable. No mass. Gallbladder and bile ducts: There are 2 gallstones noted in the gallbladder, not appreciably altered from the previous examination, measuring up to 14 mm. The gallbladder is distended without gallbladder wall thickening. No biliary dilatation. Pancreas: Unremarkable. No mass. No ductal dilation. Spleen: Unremarkable. No splenomegaly. Adrenals: Unremarkable. No mass. Kidneys and ureters: Unremarkable. No solid mass. No hydronephrosis. Stomach and bowel: There are new abnormal distended small bowel loops in the mid abdomen with surrounding mesenteric fat stranding and retained fecal appearing material distally adjacent to an apparent transition point in the anterior abdomen. The transition point is noted immediately adjacent to the postsurgical changes (series 302; images 20-31). Postsurgical changes consistent with right hemicolectomy, stable from the previous examination. The remaining left colon is decompressed without significant stool burden. PELVIS: Appendix: Surgically absent. Bladder: Unremarkable. No mass. Reproductive: Unremarkable as visualized. ABDOMEN and PELVIS: Intraperitoneal space: Unremarkable. No free air. No significant fluid collection. Bones/joints: No acute fracture. No dislocation. Soft tissues: Unremarkable. Vasculature: Unremarkable. No abdominal aortic aneurysm. Lymph nodes: Unremarkable. No enlarged lymph nodes. IMPRESSION: There are new abnormal distended small bowel loops in the mid abdomen with surrounding mesenteric fat stranding and retained fecal appearing material distally adjacent to an apparent transition point in the anterior abdomen. The transition point is noted immediately adjacent to the postsurgical changes (series 302; images 20-31). Findings are most consistent with at least a developing partial small bowel obstruction. No pneumoperitoneum. Electronically signed by: Lester Prieto MD 12/31/22 22:51 PM 01/03/23 09:56 US RUQ [US liver] Routine Comparison: Comparison is made to CT abdomen pelvis 12/31/2022 FINDINGS: The liver is diffusely echogenic in appearance with poor ultrasound penetration, with normal contour, which is consistent with fatty infiltration. Liver appears enlarged measuring 16.2 cm. No focal mass lesions are seen. No intrahepatic ductal dilatation is seen. Nonmobile stones are seen in the gallbladder. Gallbladder wall measures 3 mm or greater. A sonographic Arzola's sign was elicited by the mail distribution clerk. The common duct measures 0.5 cm in diameter at the level of the hepatic artery. The visualized portions of the pancreas appear normal. The right kidney shows normal echogenicity, cortical thickness and renal contour. The right kidney shows no evidence of hydronephrosis or mass. No ascites or free fluid is seen in Stein's pouch. IMPRESSION: 1. Gallbladder wall thickening, nonmobile stones, and tenderness on exam compatible with acute cholecystitis. 2. Hepatic steatosis. ACT 112: Negative or not required by law. Pending Results Patient Have Any Pending Studies at Discharge: Yes Discharge Instructions Given to Patient (Per Discharging Provider) PLEASE REFER TO YOUR NEW MEDICATION LIST AND FOLLOW INSTRUCTIONS CAREFULLY. YOUR NEW MEDICATIONS INCLUDE: Augmentin- antibiotic for possible gallbladder infection Oxycodone- as needed for pain Potassium supplement Please drink plenty of fluids. PLEASE CALL YOUR PRIMARY CARE PHYSICIAN OR RETURN TO THE ER IF WITH WORSENING OF SYMPTOMS, INCLUDING ABDOMINAL PAIN, NAUSEA/VOMITING, FEVER/CHILLS, ETC. FOLLOW UP WITH PRIMARY CARE PHYSICIAN OUTLINED ABOVE. FOLLOW UP WITH GENERAL SURGEON DR. GARRETT NEXT WEEK. SPECIAL CARE INSTRUCTIONS: * Cover incisions and change daily for comfort/drainage. * May use ibuprofen for pain as tolerated. * Expect some swelling and bruising. Call your doctor if: * Temperature above 101 degrees * Pain not relieved by pain medicine ordered * There is increased drainage or redness from any incision * You have any unanswered questions or concerns [phone]. FOLLOW UP VISIT: If not already scheduled, please call the office for a follow-up visit. For next Wednesday or Wednesday-wound check-please call the office OFFICE PHONE NUMBER: Dr. Garrett Office Total Time Total Time Spent Total Time Spent (In Minutes): >30 minutes
== END 2023-01-08 15:13 | disposition home or self-care (01) | DRG 336 ==
LOC: ED 20:33 → 2W 01-01 02:33 → SUATTDRO 01-01 02:33 → 2W 01-01 03:30

== ENCOUNTER 2023-04-14 23:41 | Inpatient (IN) ==
[2023-04-15] MEDS ORDERED: SODIUM CHLORIDE 0.9% 1,000 ML IV ONE (00:32)
[2023-04-15] MEDS ORDERED: HYDROmorphone INJ 1 MG/ML SYRINGE IV STA ×2 (00:32→02:53)
[2023-04-15] MEDS ORDERED: ONDANSETRON INJ 2 MG/ML 2 ML VIAL IV STA (00:32)
[2023-04-15 01:13] LABS: Albumin Globulin Ratio 1.1 (0.9-2); Albumin Level 4.1 gm/dl (3.4-5.0); Bilirubin,Total 0.3 mg/dl (0.2-1.0); Calcium 9.3 mg/dl (8.6-10.3); Creatinine Clr Calc Pharmacy 91.5 ml/min; Est GFR (African American) 108.5 ml/min; Est GFR (Non-African American) 93.6 ml/min; Globulin 3.7 gm/dl (2.5-4.0); Potassium 3.5 mmol/L (3.5-5.1); Total Protein 7.8 gm/dl (6.0-8.3)
--- NOTE | 2023-04-15 01:14 | Emergency Department Note ---
Impression & Plan SBO (small bowel obstruction) Admit to the [facility] ED Provider Note NAME: BREEZY SAUCEDA AGE: 47 SEX: F ARRIVES VIA: Walk-In INFORMANT: Patient ED PROVIDER(S): Yessenia Cardenas DO CHIEF COMPLAINT: Right upper quadrant abdominal pain PLAN: Disposition: Admit to the [facility] Condition: Fair MEDICAL DECISION MAKING: This is a 47-year-old female patient with a history of Crohn's disease who presents to the emergency department with a 3 to 5-day history of right upper quadrant abdominal pain that has worsened. Patient has a history of recurrent partial small bowel obstructions. She also has a history of gallbladder issues and scar tissue in the right upper quadrant. Laboratory studies reveal no leukocytosis or anemia. There is no evidence of acute kidney injury or dehydration. There is no evidence of hypoglycemia. Liver function tests were normal. Patient went for CT scan of the abdomen/pelvis which showed evidence of a small bowel obstruction. The patient required multiple doses of IV Dilaudid for pain management. Triage Nursing notes reviewed and agree with them. External medical records were reviewed including previous inpatient records and operative notes from spring 2022. 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 Patient presents to the emergency department with severe right upper quadrant abdominal pain that seems to worsen when she takes a deep breath or moves. Patient has a history of Crohn's disease. She had a similar episode in the spring of this year for which she underwent open right upper quadrant abdominal surgery where they were going to remove her gallbladder but states they were unable to do so because of scar tissue. PAST MEDICAL HISTORY:See Below PAST SURGICAL HISTORY:See Below FAMILY HISTORY:See Below SOCIAL HISTORY:See Below HOME MEDICATIONS: See list ALLERGIES: None VITALS:See Below PHYSICAL EXAMINATION: HEENT: Head - normocephalic and atraumatic Pupils are equal, round, and reactive to light. Extraocular eye muscles are intact, and sclera are anicteric. Nose - moist nasal mucosa without discharge. Mouth - moist buccal mucosa. Oropharynx is nonerythematous and there is no tonsillar exudate or edema noted. Neck: Supple; no JVD, nuchal rigidity, cervical lymphadenopathy, or auscultated bruits. Heart: Regular rate and rhythm. There is a normal S1 and S2 with no murmurs, clicks, or gallops appreciated. Lungs: Clear to auscultation bilaterally with no wheezes, rales, or rhonchi. Abdomen: Soft, exquisitely tender to palpation in the right upper quadrant, nondistended, with good bowel sounds. There are no palpable pulsatile masses or hepatosplenomegaly. There is moderate guarding and rebound noted. Extremities: No evidence of cyanosis, clubbing, or edema. There are easily palpable peripheral pulses. Skin: warm and dry with good turgor and no rashes. ED COURSE: Times/Reassessments: 0020: The patient was evaluated in room A-2. A complete history and physical was performed. An order was placed for continuous cardiac monitoring. The patient is in a normal sinus rhythm at a rate of 76. Patient was medicated with IV Zofran and IV Dilaudid. She was started on normal saline drip. She will go for CT scan of the abdomen/pelvis. Upon returning from radiology, the patient required additional doses of IV Dilaudid. I reviewed the results of the CT scan with the patient. I discussed the case with the [facility] Hospitalist. Yessenia Cardenas DO Past Med/Surg History Medical History Abnormal CT scan, chest Cholelithiasis Chronic maxillary sinusitis Crohn's disease Depression with anxiety Encounter for pre-operative examination History of Clostridioides difficile colitis History of deviated nasal septum History of erythema nodosum History of uveitis Prolonged QT interval Tobacco abuse Surgical History History of colectomy History of colonoscopy Last 07/2019 History of rhinoplasty Multiple nasal surgeries x3 History of surgery (01/04/23) Attempted Laparoscopy, Exploratory Laparotomy, Lysis of Adhesions(Not Applicable) - Alexx Garrett MD, FACS Family History Father Heart disease TIA (transient ischemic attack) Mother Heart disease FH: diverticulitis Sister Crohn's disease Diabetes Social History Smoking Status: Current every day smoker Tobacco Type: Cigarettes Cigarettes Per Day: 1/2 pack per day; Second Hand Exposure: No; Do You Dip or Chew Tobacco: No; Tobacco Cessation Education Requested by Patient: No Hx Alcohol Use: Yes Alcohol type: wine and hard liquor Alcohol type Comment: Once a month Hx Substance Use: No Preferred Language: Maltese Communication Ability: Effective Radiologist Physician Required: No Beliefs That Will Affect Care: None marital status: Single Current Living Situation: Other Current Living Situation Comment: ex boyfriend Other Information That Helps Us Care for You: No Feels Safe at Home: Yes Safety Concerns: Feels Safe At This Time Assistive Devices: Contacts, Denture - Upper, Denture - Lower and Glasses Allergies Allergies Allergy/AdvReac Type Severity Reaction Status Date / Time No Known Allergies Allergy Verified 01/13/23 09:36 Home Meds Home Medications Medication Instructions Recorded Confirmed calcium carbonate 500 mg-vitamin 1 tab PO HS 04/29/22 04/15/23 D3 5 mcg (200 unit) tablet (Calcium 500 + D) fluoxetine 40 mg capsule 80 mg PO DAILY 04/29/22 04/15/23 gabapentin 300 mg capsule 300 mg PO BID 04/29/22 04/15/23 gabapentin 600 mg tablet 600 mg PO HS 04/29/22 04/15/23 lorazepam 0.5 mg tablet 0.5 mg PO TID 04/29/22 04/15/23 melatonin 5 mg tablet 5 mg PO HS 04/29/22 04/15/23 omega-3 fatty acids 1,000 mg 1,000 mg PO QPM 04/29/22 04/15/23 capsule pantoprazole 40 mg tablet,delayed 40 mg PO DAILY 04/29/22 04/15/23 release ustekinumab 90 mg/mL subcutaneous 90 mg subcut .[id number] 04/29/22 04/15/23 syringe (Stelara) diphenoxylate-atropine 2.5 1 tab PO DAILY PRN Diarrhea 12/31/22 04/15/23 mg-0.025 mg tablet (Lomotil) multivitamin 1 tab PO DAILY 12/31/22 04/15/23 sodium chloride 0.65 % nasal spray 2 spray intranasal DIRECTED PRN 12/31/22 04/15/23 aerosol (Saline Nasal) NASAL DRYNESS diclofenac sodium 1 % topical gel 4 g topical TID PRN Pain 04/15/23 04/15/23 Results & Data (ED) Vital Signs Vital Signs - 24 hr 04/14/23 23:48 04/15/23 00:08 04/15/23 00:35 Temperature 36.7 C Temperature Source Temporal Artery Scan Pulse Rate 94 H 76 Pulse Rhythm Regular Pulse Strength Normal Respiratory Rate 20 Respiratory Effort / Characteristics Non-Labored Respiratory Depth Normal Blood Pressure 156/80 H Blood Pressure Mean 105 Blood Pressure Position Sitting Pulse Oximetry 95 94 Oxygen Delivery Method Room Air Room Air Sepsis Recent Fever Within 48 Hours No Sepsis New/Unexplained Change in Mental Status N/A Sepsis Action Taken by Nursing No Action Required Laboratory Data 04/15/23 00:05 04/15/23 00:05 Lab Results 04/15/23 04/15/23 04/15/23 Range/Units 00:05 00:05 01:50 WBC 7.85 (4.8-10.8) K/ul RBC 4.68 (4.20-5.40) M/uL Hgb 14.1 (12.0-16.0) g/dl Hct 41.4 (37.0-47.0) % MCV 88.5 (80.0-100.0) fL MCH 30.1 (25.0-34.0) pg MCHC 34.1 (32.0-36.0) g/dL RDW Std Deviation 43.6 (36.4-46.3) fL RDW Coeff of Samia 13.4 (11.5-14.5) % Plt Count 383 (130-400) K/uL MPV 9.2 L (9.4-12.4) fL Immature Gran % (Auto) 0.3 % Neut % (Auto) 57.6 % Lymph % (Auto) 31.1 % Amador % (Auto) 7.4 % Eos % (Auto) 2.8 % Baso % (Auto) 0.8 % Neut # (Auto) 4.53 (1.40-6.50) K/uL Lymph # (Auto) 2.44 (1.20-3.40) K/uL Amador # (Auto) 0.58 (0.11-0.59) K/uL Eos # (Auto) 0.22 (0.00-0.50) K/uL Baso # (Auto) 0.06 (0.00-0.20) K/uL Immature Gran # (Auto) 0.02 (0.01-0.20) K/uL Sodium 139 (136-145) mmol/L Potassium 3.5 (3.5-5.1) mmol/L Chloride 104 (98-107) mmol/L Carbon Dioxide 28 (21-32) mmol/L Anion Gap 7 (3-11) BUN 9 (6-23) mg/dl Creatinine 0.75 (0.6-1.2) mg/dl Est Cr Clr Drug Dosing 91.5 ml/min Est GFR ( Amer) 108.5 ml/min Est GFR (Non-Af Amer) 93.6 ml/min BUN/Creatinine Ratio 12.0 (10-20) Glucose 85 (70-99(Fasting)) mg/dl Calcium 9.3 (8.6-10.3) mg/dl Total Bilirubin 0.3 (0.2-1.0) mg/dl AST 15 (13-39) U/L ALT 9 (7-52) U/L Alkaline Phosphatase 80 (34-104) U/L Total Protein 7.8 (6.0-8.3) gm/dl Albumin 4.1 (3.4-5.0) gm/dl Globulin 3.7 (2.5-4.0) gm/dl Albumin/Globulin Ratio 1.1 (0.9-2) Lipase 19 (11-82) U/L Urine Color Yellow Urine Appearance Clear (Clear) Urine pH 5.5 (4.5-7.5) Ur Specific Bryan 1.038 H (1.000-1.030) Urine Protein Negative (Negative) Urine Glucose (UA) Negative (Negative) Urine Ketones Negative (Negative) Urine Blood 1+ H (Negative) Urine Nitrite Negative (Negative) Urine Bilirubin Negative (Negative) Urine Urobilinogen Negative (Negative) Ur Leukocyte Esterase 1+ H (Negative) Urine WBC (Auto) 10-30 H (0-5) /hpf Urine RBC (Auto) 5-10 H (0-4) /hpf U Hyaline Cast (Auto) 1-5 (0-5) /lpf U Epithel Cells (Auto) 20-30 H (0-5) /lpf Urine Bacteria (Auto) Negative (Negative) Administered Medications Acetaminophen (Acetaminophen 325 Mg Tab) 650 mg PO Q6H PRN PRN Reason: Fever/Pain Stop: 05/15/23 03:22 Last Admin: 04/16/23 07:40 Dose: 650 mg Documented By: Admin: 04/15/23 19:55 Dose: 650 mg Documented By: Admin: 04/15/23 11:57 Dose: 650 mg Documented By: Admin: 04/15/23 06:18 Dose: 650 mg Documented By: DANIEL Enoxaparin Sodium (Enoxaparin Inj 40 Mg/0.4 Ml Syr) 40 mg SQ QAM COUNT INCLUDES THE [facility] Stop: 05/15/23 08:59 Last Admin: 04/16/23 08:12 Dose: 40 mg Documented By: Admin: 04/15/23 08:29 Dose: 40 mg Documented By: BENNY Fluoxetine HCl (Fluoxetine Hcl 20 Mg Cap) 80 mg PO DAILY COUNT INCLUDES THE [facility] Stop: 05/15/23 08:59 Last Admin: 04/16/23 08:13 Dose: 80 mg Documented By: Admin: 04/15/23 08:28 Dose: 80 mg Documented By: BENNY Gabapentin (Gabapentin 600 Mg Tab) 600 mg PO HS COUNT INCLUDES THE [facility] Stop: 05/15/23 20:59 Last Admin: 04/15/23 22:41 Dose: 600 mg Documented By: GHULAM Gabapentin (Gabapentin 300 Mg Cap) 300 mg PO 0800,1200 COUNT INCLUDES THE [facility] Stop: 05/15/23 07:59 Last Admin: 04/16/23 11:12 Dose: 300 mg Documented By: Admin: 04/16/23 08:13 Dose: 300 mg Documented By: Admin: 04/15/23 11:52 Dose: 300 mg Documented By: Admin: 04/15/23 08:27 Dose: 300 mg Documented By: BENNY Promethazine HCl 12.5 mg/ (Sodium Chloride) 50.5 mls @ 202 mls/hr IV Q6H PRN PRN Reason: Nausea And Vomiting Stop: 05/15/23 03:22 Last Infusion: 04/15/23 20:33 Dose: 0 mls/hr Documented By: Admin: 04/15/23 20:11 Dose: 202 mls/hr Documented By: GHULAM Dextrose/Lactated Ringer's (D5w And Lactated Ringers) 1,000 mls @ 60 mls/hr IV .[id number] COUNT INCLUDES THE [facility] Stop: 05/15/23 20:59 Last Admin: 04/16/23 11:33 Dose: 60 mls/hr Documented By: Infusion: 04/16/23 11:33 Dose: 60 mls/hr Documented By: Admin: 04/15/23 20:02 Dose: 60 mls/hr Documented By: GHULAM Ketorolac Tromethamine (Ketorolac Tromethamine 15 Mg/Ml Vial) 15 mg IV Q6H PRN PRN Reason: Pain Stop: 04/20/23 03:22 Last Admin: 04/16/23 07:39 Dose: 15 mg Documented By: Admin: 04/16/23 00:52 Dose: 15 mg Documented By: Admin: 04/15/23 14:23 Dose: 15 mg Documented By: Admin: 04/15/23 07:06 Dose: 15 mg Documented By: BENNY Lorazepam (Lorazepam 0.5 Mg Tab) 0.5 mg PO TID COUNT INCLUDES THE [facility] Stop: 05/15/23 08:59 Last Admin: 04/16/23 08:16 Dose: 0.5 mg Documented By: Admin: 04/15/23 22:41 Dose: 0.5 mg Documented By: Admin: 04/15/23 14:22 Dose: 0.5 mg Documented By: Admin: 04/15/23 08:26 Dose: 0.5 mg Documented By: BENNY Melatonin (Melatonin 3 Mg Tab) 6 mg PO HSZ COUNT INCLUDES THE [facility] Stop: 05/15/23 21:59 Last Admin: 04/15/23 22:41 Dose: 6 mg Documented By: GHULAM Miscellaneous (Remove Nicoderm Patch) 1 each N/A DAILY@0859 COUNT INCLUDES THE [facility] Stop: 05/16/23 08:58 Last Admin: 04/16/23 08:14 Dose: 1 each Documented By: TRINIDAD Morphine Sulfate (Morphine Sulfate 4 Mg/Ml 1 Ml Carp\Vial) 3 mg IV Q4H PRN PRN Reason: severe pain Stop: 04/29/23 07:57 Last Admin: 04/16/23 11:07 Dose: 3 mg Documented By: Admin: 04/16/23 06:24 Dose: 3 mg Documented By: Admin: 04/15/23 21:32 Dose: 3 mg Documented By: Admin: 04/15/23 16:41 Dose: 3 mg Documented By: Admin: 04/15/23 11:58 Dose: 3 mg Documented By: Admin: 04/15/23 08:29 Dose: 3 mg Documented By: BENNY Multivitamins (Multivitamin Tab) 1 tab PO DAILY DENILSON Stop: 05/15/23 08:59 Last Admin: 04/16/23 08:13 Dose: 1 tab Documented By: Admin: 04/15/23 08:26 Dose: 1 tab Documented By: BENNY Nicotine (Nicotine 14 Mg/24 Hr Patch) 14 mg TD QAM [place]ILSON Stop: 05/16/23 08:59 Last Admin: 04/16/23 09:11 Dose: 14 mg Documented By: TRINIDAD Pantoprazole Sodium (Pantoprazole 40 Mg Tab) 40 mg PO DAILY [place]ILSON Stop: 05/15/23 08:59 Last Admin: 04/16/23 08:13 Dose: 40 mg Documented By: Admin: 04/15/23 08:29 Dose: 40 mg Documented By: BENNY Discontinued Medications Hydromorphone HCl (Hydromorphone Inj 1 Mg/Ml Syringe) 1 mg IV NOW STA Stop: 04/15/23 00:33 Last Admin: 04/15/23 00:40 Dose: 1 mg Documented By: DANIEL Hydromorphone HCl (Hydromorphone Inj 1 Mg/Ml Syringe) 1 mg IV NOW STA Stop: 04/15/23 02:54 Last Admin: 04/15/23 03:10 Dose: 1 mg Documented By: DANIEL Sodium Chloride (Nss 1000ml) 1,000 mls @ 999 mls/hr IV .Q1H1M ONE Stop: 04/15/23 01:32 Last Infusion: 04/15/23 01:45 Dose: 0 mls/hr Documented By: Admin: 04/15/23 00:42 Dose: 999 mls/hr Documented By: DANIEL Dextrose/Lactated Ringer's (D5w And Lactated Ringers) 1,000 mls @ 60 mls/hr IV .[id number] STA Stop: 04/15/23 20:14 Last Infusion: 04/15/23 20:02 Dose: 0 mls/hr Documented By: Admin: 04/15/23 06:07 Dose: 60 mls/hr Documented By: DANIEL Ioversol (Optiray 320 100ml) 92 ml IV ONCE ONE Stop: 04/15/23 01:36 Last Admin: 04/15/23 01:41 Dose: 92 ml Documented By: NATE Melatonin (Melatonin 3 Mg Tab) Confirm Administered Dose 6 mg PO .STK-MED ONE Stop: 04/15/23 20:51 Last Admin: 04/15/23 21:17 Dose: Not Given Documented By: GHULAM Nicotine (Nicotine 14 Mg/24 Hr Patch) 14 mg TD ONE STA Stop: 04/15/23 04:42 Last Admin: 04/15/23 08:24 Dose: 14 mg Documented By: BENNY Nicotine (Nicotine 14 Mg/24 Hr Patch) Confirm Administered Dose 14 mg TD .STK- MED ONE Stop: 04/15/23 08:11 Last Admin: 04/15/23 08:29 Dose: Not Given Documented By: BENNY Ondansetron HCl (Ondansetron Inj 2 Mg/Ml 2 Ml Vial) 4 mg IV NOW STA Stop: 04/15/23 00:33 Last Admin: 04/15/23 00:40 Dose: 4 mg Documented By: DANIEL Discharge Plan Visit Data Chief Complaint: Abdominal Pain Stated Complaint: ABDOMINAL PAIN, [place]S ED Provider: Yessenia Cardenas Discharge Problem: SBO (small bowel obstruction) Patient Disposition: Admitted As Inpatient Discharge Instructions Interventions: ED Discharge Assessment Last Done: 04/15/23 18:37
[2023-04-15 01:15] LABS: Basophils # (auto) 0.06 K/uL (0.00-0.20); Basophils % (auto) 0.8 %; Eosinophils # (auto) 0.22 K/uL (0.00-0.50); Eosinophils % (auto) 2.8 %; Hematocrit (blood only) 41.4 % (37.0-47.0); Hemoglobin 14.1 g/dl (12.0-16.0); Immature Granulocytes # (auto) 0.02 K/uL (0.01-0.20); Immature Granulocytes % (auto) 0.3 %; Lymphocytes # (auto) 2.44 K/uL (1.20-3.40); Lymphocytes % (auto) 31.1 %; Mean Corpuscular Hemoglobin 30.1 pg (25.0-34.0); Mean Corpuscular Hgb Conc 34.1 g/dL (32.0-36.0); Mean Corpuscular Volume 88.5 fL (80.0-100.0); Mean Platelet Volume 9.2 fL (9.4-12.4); Monocytes # (auto) 0.58 K/uL (0.11-0.59); Monocytes % (auto) 7.4 %; Neutrophils # (auto) 4.53 K/uL (1.40-6.50); Neutrophils % (auto) 57.6 %; Platelet Count 383 K/uL (130-400); RDW Coefficient of Variation 13.4 % (11.5-14.5); RDW Standard Deviation 43.6 fL (36.4-46.3); Red Blood Count 4.68 M/uL (4.20-5.40); White Blood Count 7.85 K/ul (4.8-10.8)
[2023-04-15] MEDS ORDERED: OPTIRAY 320 100ml IV ONE (01:35)
[2023-04-15 02:11] LABS: Appearance Urine Clear (Clear); Bacteria Urine Automated Negative (Negative); Bilirubin Urine Negative (Negative); Blood Urine 1+ (Negative); Color Urine Yellow; Epithelial Cell Urine Auto 20-30 /lpf (0-5); Glucose Urine UA Negative (Negative); Ketones Urine Negative (Negative); Leukocyte Esterase Urine 1+ (Negative); Nitrite Urine Negative (Negative); Protein Urine Negative (Negative); Specific Gravity Urine 1.038 (1.000-1.030); Urobilinogen Urine Negative (Negative); pH Urine 5.5 (4.5-7.5)
--- NOTE | 2023-04-15 02:54 | CT Scan Report ---
Exam(s): CT ABDOMEN + PELVIS With Contrast IV Amt: 92 optiray 320 EXAM: CT Abdomen and Pelvis With Intravenous Contrast CLINICAL HISTORY: Reason for exam: eval for sbo. TECHNIQUE: Axial computed tomography images of the abdomen and pelvis with intravenous contrast. CTDI is 21.76 mGy and DLP is 1188.9 mGy-cm. Automated exposure control was utilized for the study. A dose lowering technique was utilized adhering to the principles of ALARA. CONTRAST: Patient received 92 optiray 320 of IV contrast COMPARISON: CT Abdomen Pelvis dated 12/31/22 FINDINGS: Lung bases: Mild bibasilar atelectasis. ABDOMEN: Liver: Unremarkable. No mass. Gallbladder and bile ducts: Cholelithiasis. No ductal dilation. Pancreas: Unremarkable. No mass. No ductal dilation. Spleen: Unremarkable. No splenomegaly. Adrenals: Unremarkable. No mass. Kidneys and ureters: Unremarkable. No solid mass. No hydronephrosis. Stomach and bowel: Right hemicolectomy as on the prior study. Dilated small bowel loops with air-fluid levels in the mid/left abdomen. Transition point in the anterior mid abdomen with similar appearance on the prior study. This is adjacent to area of colonic bowel sutures. Mild adjacent fat stranding. PELVIS: Appendix: See above. Bladder: Unremarkable. No mass. Reproductive: Unremarkable as visualized. ABDOMEN and PELVIS: Intraperitoneal space: Unremarkable. No free air. No significant fluid collection. Bones/joints: No acute fracture. No dislocation. Soft tissues: Unremarkable. Vasculature: Unremarkable. No abdominal aortic aneurysm. Lymph nodes: Unremarkable. No enlarged lymph nodes. IMPRESSION: 1. Findings likely represent small bowel obstruction with transition point in the anterior mid abdomen. 2. Right hemicolectomy as on the prior study. Electronically signed by: Jonathan Reeder M.D. 04/15/23 02:54 AM
[2023-04-15] MEDS ORDERED: PROMETHAZINE HCL 12.5 MG in SODIUM CHLORIDE 0.9% 50 ML IV PRN (03:23)
[2023-04-15] MEDS ORDERED: D5W AND LACTATED RINGERS 1,000 ML IV STA (03:35)
--- NOTE | 2023-04-15 04:22 | Surgery Consultation ---
Date of Consultation April 15, 2023 Assessment & Plan (1) SBO (small bowel obstruction): Due to the patient's clinical presentation and findings on imaging she is being admitted to the hospital. From a surgical perspective we recommend proceeding as follows: Provide analgesics Provide antiemetics Provide IV fluid for hydration Implement n.p.o. status. As the patient's abdomen is nondistended and she has not had any emesis she prefers to hold off on having an NG tube placed at this time. At the present time I feel we can hold this modality for now but I did discuss with the patient that if her abdomen exam becomes worse (worsening pain, increased distention) or if she develops any nausea or vomiting the use of an NG tube will need to be reconsidered. She expressed her understanding. Consideration can be given to advancing the patient's diet only after she has improved bowel function and improvement of her abdominal exam. Would recommend following serial labs As the patient is noted to have gallstones on her CT scan and the majority of her pain appears to be in the right upper quadrant we will check a right upper quadrant ultrasound to ensure she does not have cholecystitis. If patient does have evidence of cholecystitis she may require a biliary procedure such as a cholecystostomy tube or an AXIOS stent but this is yet to be determined. Additional recommendations will be forthcoming based on results of her right upper quadrant ultrasound and her clinical course as it unfolds. History of Present Illness Reason for Consultation: Small bowel obstruction History of Present Illness This is a 47-year-old female who presented to the emergency department secondary to abdominal pain. The patient has an underlying history of Crohn's disease. She says that this was diagnosed in 1991. She currently follows with [facility], Dr. Rowley. Patient says that she has an injectable medicine named Stelara that she utilizes for her Crohn's disease and she receives this every 6 weeks. She notes that her most recent dose of this medication was 1.5 weeks ago. The patient notes that she has some element of abdominal pain almost on a daily basis. She presented to the emergency department at [facility] this evening as she notes that her abdominal pain has been getting worse over the past 4 to 5 days. She notes it is worse with movements and does not really report any palliative factors. She notes that the pain is nonradiating and is located primarily to the right of her umbilicus and in the right upper quadrant of her abdomen. She specifically denies any fevers, shakes, or chills. She also specifically denies any nausea or vomiting. She notes that her most recent bowel movement was approximate 9:00 PM on 04/14/2023 but was smaller than usual. She notes that her bowels have been moving almost daily but in smaller amounts than usual. She reports not passing any flatus since arrival to the emergency department the patient reports that she has had multiple abdominal surgeries with varying types of bowel/small bowel resection at multiple facilities. She does note that her most recent surgery secondary to her Crohn's was approximately 1-1/2 years ago and was performed at [facility] in [place], [place]. She was most recently admitted to [facility] in December 2022 secondary to a small bowel obstruction. This condition was being managed in a conservative manner (bowel rest and intravenous fluids; NG tube was not required) but patient developed persistent right upper quadrant pain and thus an ultrasound of her abdomen was performed. This was performed on 01/03/2023 where patient was noted to have gallbladder wall thickening and some nonmobile galls tones and felt to be concerning for acute cholecystitis. Patient was seen by Dr. Garrett of [facility] physician group general surgery. And on 01/04/2023 he attempted to form a cholecystectomy but due to multiple adhesions and adherence of the patient's bowel to the abdominal wall he could not safely perform this procedure and was aborted. On 01/05/2023 the patient underwent a HIDA scan which was not indicative of acute cholecystitis. Patient was ultimately discharged home from the hospital without undergoing any further biliary procedures. Of note, the patient did follow-up with Dr. Garrett and was most recently seen on 01/13/2023. At that time it was determined that if patient had any future episodes of concern for cholecystitis she would either require a cholecystostomy tube or an AXIOS biliary decompression to treat this condition. 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 Since arrival to [facility] this evening the patient has had labs and imaging which independent reviewed. A CT scan of the abdomen pelvis showed cholelithiasis with no biliary ductal dilatation. The patient was noted to have dilated bowel loops with air-fluid levels in the mid to left abdomen with a transition point in the anterior mid abdomen which is felt to be concerning for a small bowel obstruction. There is no intraperitoneal free air. There is no free fluid in the intraperitoneal space. On this study the patient's stomach did not appear to be markedly distended. Labs included a CBC her white blood cell count, hemoglobin, hematocrit, and platelet count were all within normal range. Chemistry profile showed sodium, potassium, BUN, and creatinine were normal. There is no elevation of patient's bilirubin, transaminases, alkaline phosphatase, or lipase. Urinalysis showed 1+ leukocyte Estrace with 10-30 white blood cells per high-power field. This study was negative for nitrites and bacteria. At the time of my interview the patient was resting comfortably in bed and she was not in any distress. Allergies Allergy/AdvReac Type Severity Reaction Status Date / Time No Known Allergies Allergy Verified 01/13/23 09:36 Home Medications Medication Instructions Recorded Confirmed Type calcium carbonate 500 mg-vitamin 1 tab PO HS 04/29/22 04/15/23 History D3 5 mcg (200 unit) tablet (Calcium 500 + D) fluoxetine 40 mg capsule 80 mg PO DAILY 04/29/22 04/15/23 History gabapentin 300 mg capsule 300 mg PO BID 04/29/22 04/15/23 History gabapentin 600 mg tablet 600 mg PO HS 04/29/22 04/15/23 History lorazepam 0.5 mg tablet 0.5 mg PO TID 04/29/22 04/15/23 History melatonin 5 mg tablet 5 mg PO HS 04/29/22 04/15/23 History omega-3 fatty acids 1,000 mg 1,000 mg PO QPM 04/29/22 04/15/23 History capsule pantoprazole 40 mg tablet,delayed 40 mg PO DAILY 04/29/22 04/15/23 History release ustekinumab 90 mg/mL subcutaneous 90 mg subcut .[id number] 04/29/22 04/15/23 History syringe (Stelara) diphenoxylate-atropine 2.5 1 tab PO DAILY PRN Diarrhea 12/31/22 04/15/23 History mg-0.025 mg tablet (Lomotil) multivitamin 1 tab PO DAILY 12/31/22 04/15/23 History sodium chloride 0.65 % nasal spray 2 spray intranasal DIRECTED PRN 12/31/22 04/15/23 History aerosol (Saline Nasal) NASAL DRYNESS diclofenac sodium 1 % topical gel 4 g topical TID PRN Pain 04/15/23 04/15/23 History Patient History Medical History Abnormal CT scan, chest Cholelithiasis Chronic maxillary sinusitis Crohn's disease Depression with anxiety Encounter for pre-operative examination History of Clostridioides difficile colitis History of deviated nasal septum History of erythema nodosum History of uveitis Prolonged QT interval Tobacco abuse Surgical History History of colectomy History of colonoscopy Last 07/2019 History of rhinoplasty Multiple nasal surgeries x3 History of surgery (01/04/23) Attempted Laparoscopy, Exploratory Laparotomy, Lysis of Adhesions(Not Applicable) - Alexx Garrett MD, FACS Family History Father Heart disease TIA (transient ischemic attack) Mother Heart disease FH: diverticulitis Sister Crohn's disease Diabetes Social History Smoking Status: Current every day smoker Tobacco Type: Cigarettes and E-cigarettes / Vaping Cigarettes Per Day: 10; Second Hand Exposure: No; Do You Dip or Chew Tobacco: No; Hx Alcohol Use: Yes Alcohol type: wine Alcohol type Comment: Once a month Hx Substance Use: No Preferred Language: Wolof Communication Ability: Effective Accounts Payable Administrator Required: No Beliefs That Will Affect Care: None marital status: Single Current Living Situation: Alone Current Living Situation Comment: room mate Feels Safe at Home: Yes Assistive Devices: None Review of Systems Constitutional: no fever and no chills Eyes: + corrective lenses Ear, Nose, Mouth, Throat: no ear pain Respiratory: no cough and no dyspnea Cardiovascular: no chest pain Gastrointestinal: + abdominal pain; no nausea and no vomiting Genitourinary: no dysuria Musculoskeletal: no back pain Integumentary: no rash Neurologic: no localized weakness Physical Exam Constitutional: WD/WN, vitals as above Eyes: Wears glasses ENMT: Ears: no hearing impairment and no external ear abnormality Mouth: no oropharynx abnormality Neck: trachea midline Respiratory: normal respiratory effort, lungs clear to auscultation Cardiovascular: Rate/Rhythm: regular rate and regular rhythm Vessels: dorsalis pedis pulses present and radial pulses present Gastrointestinal (Abdomen): Abdomen is minimally distended and overall soft and nonrigid. Bowel sounds are present. There is no rebound tenderness or guarding. Patient did have pain with palpation just to the right of the umbilicus and in the right upper quadrant. The patient had a well-healed midline incision and a well-healed Ana incision Musculoskeletal: No calf tenderness Skin: no rashes Neurologic: moves all extremities Psychiatric: A+Ox3, euthymic affect Results & Data Vital Signs (Past 12 Hours) Vital Signs Temp Pulse Resp BP Pulse Ox O2 Del Method 04/15/23 04:01 72 04/15/23 02:00 69 18 148/79 H 95 Room Air 04/15/23 01:22 69 13 95 04/15/23 01:22 163/92 H 04/15/23 01:00 71 18 151/92 H 94 Room Air 04/15/23 00:35 94 Room Air 04/15/23 00:08 76 04/14/23 23:48 36.7 C 94 H 20 156/80 H 95 Room Air PG Care Time/CCT Total # of Minutes Spent Total Time Spent with Patient: Total time spent is greater than 50% in coordination of care (as documented) at patient's floor/unit and/or counseling patient: Coding Level of Care Code 97937 IN/OBS CONSULT LVL 5,80M Diagnoses SBO (small bowel obstruction) K56.609
--- NOTE | 2023-04-15 04:24 | History & Physical Report ---
Date of Service April 15, 2023 Assessment & Plan (1) SBO (small bowel obstruction): Plan: Recurrent SBO hx Crohn's disease status post surgery on immunosuppressive regimen hx ADD, anxiety/mood disorder, at baseline ongoing tobacco abuse GMF Analgesia Bowel rest NGT insertion if with further emesis General surgery consult Re: SBO (Patient already seen by provider at the ER.) Nicotine patch DVT prophylaxis. Lovenox subcu Full code Text document was generated using Wantful voice recognition software. It may contain grammatical or spelling errors. Kindly contact undersigned for clarification of any documentation item in question. History of Present Illness Chief Complaint: Abdominal pain Primary Care Provider: Giovany Correa DO History obtained from patient and records. Medical history significant for Crohn's disease status post surgery on immunosuppressive regimen, ADD, anxiety/mood disorder RLS, cholelithiasis, ongoing tobacco abuse. Last confinement December 2022 for acute cholecystitis and SBO. Unsuccessful attempt at laparoscopic surgery due to bowel adhesions. HIDA scan later found to be negative. Patient discharged on antibiotic course. Four days history of achy right abdominal pain with nausea, bilious emesis. No fever, no chills. No chest pain, no SOB. Some nausea without emesis. Last BM last night was not a lot as per patient. Medical Historyas above Surgical History : Cystoscopy, laparoscopic colectomy with anastomosis, sinus surgery, rhinoplasty, tonsillectomy Family History : IBD, DM, esophageal cancer, heart disease, TIA Personal/Social history : 1/2 pack daily, occasional EtOH intake, currently unemployed Allergies Allergy/AdvReac Type Severity Reaction Status Date / Time No Known Allergies Allergy Verified 01/13/23 09:36 Home Medications Medication Instructions Recorded Confirmed Type calcium carbonate 500 mg-vitamin 1 tab PO HS 04/29/22 04/15/23 History D3 5 mcg (200 unit) tablet (Calcium 500 + D) fluoxetine 40 mg capsule 80 mg PO DAILY 04/29/22 04/15/23 History gabapentin 300 mg capsule 300 mg PO BID 04/29/22 04/15/23 History gabapentin 600 mg tablet 600 mg PO HS 04/29/22 04/15/23 History lorazepam 0.5 mg tablet 0.5 mg PO TID 04/29/22 04/15/23 History melatonin 5 mg tablet 5 mg PO HS 04/29/22 04/15/23 History omega-3 fatty acids 1,000 mg 1,000 mg PO QPM 04/29/22 04/15/23 History capsule pantoprazole 40 mg tablet,delayed 40 mg PO DAILY 04/29/22 04/15/23 History release ustekinumab 90 mg/mL subcutaneous 90 mg subcut .[id number] 04/29/22 04/15/23 History syringe (Stelara) diphenoxylate-atropine 2.5 1 tab PO DAILY PRN Diarrhea 12/31/22 04/15/23 History mg-0.025 mg tablet (Lomotil) multivitamin 1 tab PO DAILY 12/31/22 04/15/23 History sodium chloride 0.65 % nasal spray 2 spray intranasal DIRECTED PRN 12/31/22 04/15/23 History aerosol (Saline Nasal) NASAL DRYNESS diclofenac sodium 1 % topical gel 4 g topical TID PRN Pain 04/15/23 04/15/23 History Past Med/Surg History Medical History Abnormal CT scan, chest Cholelithiasis Chronic maxillary sinusitis Crohn's disease Depression with anxiety Encounter for pre-operative examination History of Clostridioides difficile colitis History of deviated nasal septum History of erythema nodosum History of uveitis Prolonged QT interval Tobacco abuse Surgical History History of colectomy History of colonoscopy Last 07/2019 History of rhinoplasty Multiple nasal surgeries x3 History of surgery (01/04/23) Attempted Laparoscopy, Exploratory Laparotomy, Lysis of Adhesions(Not Applicable) - Alexx Garrett MD, FACS Family History Father Heart disease TIA (transient ischemic attack) Mother Heart disease FH: diverticulitis Sister Crohn's disease Diabetes Social History Smoking Status: Current every day smoker Tobacco Type: Cigarettes and E-cigarettes / Vaping Cigarettes Per Day: 10; Second Hand Exposure: No; Do You Dip or Chew Tobacco: No; Hx Alcohol Use: Yes Alcohol type: wine Alcohol type Comment: Once a month Hx Substance Use: No Preferred Language: Latvian Communication Ability: Effective Script Editor Required: No Beliefs That Will Affect Care: None marital status: Single Current Living Situation: Alone Current Living Situation Comment: room mate Feels Safe at Home: Yes Assistive Devices: None Review of Systems Review of Systems: As per HPI, all other systems reviewed and negative Physical Exam Physical Exam: GENERAL: Comfortable, slightly anxious, flat affect, no respiratory distress SKIN: Normal color, warm HEENT: Bespectacled, pink palpebral conjunctivae, no ptosis, dry buccal mucosa NECK : Supple, no tenderness CHEST : CTA, no tenderness HEART : RRR, no obvious murmurs ABDOMEN: Some distention, RUQ tenderness EXTREMITIES : No LE swelling/tenderness, no other conspicuous deformities noted NEUROLOGIC : Coherent, no facial asymmetry, no other gross focality Results & Data Results & Data Vital Signs (Past 12 Hours) Vital Signs Temp Pulse Resp BP Pulse Ox O2 Del Method 04/15/23 04:01 72 04/15/23 02:00 69 18 148/79 H 95 Room Air 04/15/23 01:22 69 13 95 04/15/23 01:22 163/92 H 04/15/23 01:00 71 18 151/92 H 94 Room Air 04/15/23 00:35 94 Room Air 04/15/23 00:08 76 04/14/23 23:48 36.7 C 94 H 20 156/80 H 95 Room Air Laboratory Results Laboratory Results WBC 7.85 K/ul (4.8-10.8) 04/15/23 00:05 RBC 4.68 M/uL (4.20-5.40) 04/15/23 00:05 Hgb 14.1 g/dl (12.0-16.0) 04/15/23 00:05 Hct 41.4 % (37.0-47.0) 04/15/23 00:05 MCV 88.5 fL (80.0-100.0) 04/15/23 00:05 MCH 30.1 pg (25.0-34.0) 04/15/23 00:05 MCHC 34.1 g/dL (32.0-36.0) 04/15/23 00:05 RDW Std Deviation 43.6 fL (36.4-46.3) 04/15/23 00:05 RDW Coeff of Samia 13.4 % (11.5-14.5) 04/15/23 00:05 Plt Count 383 K/uL (130-400) 04/15/23 00:05 MPV 9.2 fL (9.4-12.4) L 04/15/23 00:05 Immature Gran % (Auto) 0.3 % 04/15/23 00:05 Neut % (Auto) 57.6 % 04/15/23 00:05 Lymph % (Auto) 31.1 % 04/15/23 00:05 Cedar % (Auto) 7.4 % 04/15/23 00:05 Eos % (Auto) 2.8 % 04/15/23 00:05 Baso % (Auto) 0.8 % 04/15/23 00:05 Neut # (Auto) 4.53 K/uL (1.40-6.50) 04/15/23 00:05 Lymph # (Auto) 2.44 K/uL (1.20-3.40) 04/15/23 00:05 Cedar # (Auto) 0.58 K/uL (0.11-0.59) 04/15/23 00:05 Eos # (Auto) 0.22 K/uL (0.00-0.50) 04/15/23 00:05 Baso # (Auto) 0.06 K/uL (0.00-0.20) 04/15/23 00:05 Immature Gran # (Auto) 0.02 K/uL (0.01-0.20) 04/15/23 00:05 Sodium 139 mmol/L (136-145) 04/15/23 00:05 Potassium 3.5 mmol/L (3.5-5.1) 04/15/23 00:05 Chloride 104 mmol/L (98-107) 04/15/23 00:05 Carbon Dioxide 28 mmol/L (21-32) 04/15/23 00:05 Anion Gap 7 (3-11) 04/15/23 00:05 BUN 9 mg/dl (6-23) 04/15/23 00:05 Creatinine 0.75 mg/dl (0.6-1.2) 04/15/23 00:05 Est Cr Clr Drug Dosing 91.5 ml/min 04/15/23 00:05 Est GFR ( Amer) 108.5 ml/min 04/15/23 00:05 Est GFR (Non-Af Amer) 93.6 ml/min 04/15/23 00:05 BUN/Creatinine Ratio 12.0 (10-20) 04/15/23 00:05 Glucose 85 mg/dl (70-99(Fasting)) 04/15/23 00:05 Calcium 9.3 mg/dl (8.6-10.3) 04/15/23 00:05 Total Bilirubin 0.3 mg/dl (0.2-1.0) 04/15/23 00:05 AST 15 U/L (13-39) 04/15/23 00:05 ALT 9 U/L (7-52) 04/15/23 00:05 Alkaline Phosphatase 80 U/L (34-104) 04/15/23 00:05 Total Protein 7.8 gm/dl (6.0-8.3) 04/15/23 00:05 Albumin 4.1 gm/dl (3.4-5.0) 04/15/23 00:05 Globulin 3.7 gm/dl (2.5-4.0) 04/15/23 00:05 Albumin/Globulin Ratio 1.1 (0.9-2) 04/15/23 00:05 Lipase 19 U/L (11-82) 04/15/23 00:05 Urine Color Yellow 04/15/23 01:50 Urine Appearance Clear (Clear) 04/15/23 01:50 Urine pH 5.5 (4.5-7.5) 04/15/23 01:50 Ur Specific [place] 1.038 (1.000-1.030) H 04/15/23 01:50 Urine Protein Negative (Negative) 04/15/23 01:50 Urine Glucose (UA) Negative (Negative) 04/15/23 01:50 Urine Ketones Negative (Negative) 04/15/23 01:50 Urine Blood 1+ (Negative) H 04/15/23 01:50 Urine Nitrite Negative (Negative) 04/15/23 01:50 Urine Bilirubin Negative (Negative) 04/15/23 01:50 Urine Urobilinogen Negative (Negative) 04/15/23 01:50 Ur Leukocyte Esterase 1+ (Negative) H 04/15/23 01:50 Urine WBC (Auto) 10-30 /hpf (0-5) H 04/15/23 01:50 Urine RBC (Auto) 5-10 /hpf (0-4) H 04/15/23 01:50 U Hyaline Cast (Auto) 1-5 /lpf (0-5) 04/15/23 01:50 U Epithel Cells (Auto) 20-30 /lpf (0-5) H 04/15/23 01:50 Urine Bacteria (Auto) Negative (Negative) 04/15/23 01:50 Impressions Abdomen/Pelvis CT 04/15/23 00:34 Exam(s): CT ABDOMEN + PELVIS With Contrast IV Amt: 92 optiray 320 EXAM: CT Abdomen and Pelvis With Intravenous Contrast CLINICAL HISTORY: Reason for exam: eval for sbo. TECHNIQUE: Axial computed tomography images of the abdomen and pelvis with intravenous contrast. CTDI is 21.76 mGy and DLP is 1188.9 mGy-cm. Automated exposure control was utilized for the study. A dose lowering technique was utilized adhering to the principles of ALARA. CONTRAST: Patient received 92 optiray 320 of IV contrast COMPARISON: CT Abdomen Pelvis dated 12/31/22 FINDINGS: Lung bases: Mild bibasilar atelectasis. ABDOMEN: Liver: Unremarkable. No mass. Gallbladder and bile ducts: Cholelithiasis. No ductal dilation. Pancreas: Unremarkable. No mass. No ductal dilation. Spleen: Unremarkable. No splenomegaly. Adrenals: Unremarkable. No mass. Kidneys and ureters: Unremarkable. No solid mass. No hydronephrosis. Stomach and bowel: Right hemicolectomy as on the prior study. Dilated small bowel loops with air-fluid levels in the mid/left abdomen. Transition point in the anterior mid abdomen with similar appearance on the prior study. This is adjacent to area of colonic bowel sutures. Mild adjacent fat stranding. PELVIS: Appendix: See above. Bladder: Unremarkable. No mass. Reproductive: Unremarkable as visualized. ABDOMEN and PELVIS: Intraperitoneal space: Unremarkable. No free air. No significant fluid collection. Bones/joints: No acute fracture. No dislocation. Soft tissues: Unremarkable. Vasculature: Unremarkable. No abdominal aortic aneurysm. Lymph nodes: Unremarkable. No enlarged lymph nodes. IMPRESSION: 1. Findings likely represent small bowel obstruction with transition point in the anterior mid abdomen. 2. Right hemicolectomy as on the prior study. Electronically signed by: Jonathan Reeder M.D. 04/15/23 02:54 AM
[2023-04-15] MEDS ORDERED: NICOTINE 14 MG/24 HR PATCH TD STA (04:41)
[2023-04-15] MEDS ORDERED: DICLOFENAC SOD 1% GEL 100 GM TUBE EXT PRN (05:57)
[2023-04-15] MEDS ORDERED: SODIUM CHLORIDE 0.65% NA SOLN 45 ML (OCEAN) PRN (05:57)
--- NOTE | 2023-04-15 06:04 | Ultrasound Report ---
Exam(s): US GALLBLADDER EXAM: US Abdomen Limited, Gallbladder CLINICAL HISTORY: Reason for exam: RUQ pain. TECHNIQUE: Real-time ultrasound of the right upper quadrant with image documentation. COMPARISON: CT dated 04/15/2023 FINDINGS: Liver: Mild hepatomegaly, 17.6 cm in length. Gallbladder: Multiple shadowing gallbladder stones, largest 1.8 cm. No wall thickening or pericholecystic fluid. Negative sonographic Arzola sign. Common bile duct: Common bile duct 5 mm. No stones. No dilation. Pancreas: Pancreas not visualized due to bowel gas. IMPRESSION: No acute findings in the right upper quadrant. Electronically signed by: Jonathan Reeder M.D. 04/15/23 06:03 AM
[2023-04-15] MEDS: ACETAMINOPHEN 325 MG TAB PO PRN ×3 (06:18→19:55)
[2023-04-15] MEDS: KETOROLAC TROMETHAMINE 15 MG/ML VIAL IV PRN ×2 (07:06→14:23)
[2023-04-15] MEDS ORDERED: NICOTINE 14 MG/24 HR PATCH TD ONE (08:10)
[2023-04-15] MEDS: LORazepam 0.5 MG TAB PO SCH ×3 (08:26→22:41)
[2023-04-15] MEDS: MULTIVITAMIN TAB PO SCH (08:26)
[2023-04-15] MEDS: GABAPENTIN 300 MG CAP PO SCH ×2 (08:27→11:52)
[2023-04-15] MEDS: FLUoxetine HCL 20 MG CAP PO SCH (08:28)
[2023-04-15] MEDS: PANTOprazole 40 MG TAB PO SCH (08:29)
[2023-04-15] MEDS: ENOXAPARIN INJ 40 MG/0.4 ML SYR SQ SCH (08:29)
[2023-04-15] MEDS: MoRPHine SULFATE 4 MG/ML 1 ML CARP\\VIAL IV PRN ×4 (08:29→21:32)
--- NOTE | 2023-04-15 16:59 | Electrocardiogram Report ---
Test Reason : Blood Pressure : / mmHG Vent. Rate : 075 BPM Atrial Rate : 075 BPM P-R Int : 134 ms QRS Dur : 092 ms QT Int : 424 ms P-R-T Axes : 047 007 051 degrees QTc Int : 473 ms Normal sinus rhythm Left atrial enlargement Borderline ECG When compared with ECG of 01-JAN-2023 00:53, No significant change was found Confirmed by Anjum Del Rosario ([id number]) on 04/15/2023 4:58:52 PM Referred By: REFERRED SELF Confirmed By:Anjum Del Rosario
[2023-04-15] MEDS: D5W AND LACTATED RINGERS 1,000 ML IV SCH (20:02)
[2023-04-15] MEDS ORDERED: MELATONIN 3 MG TAB PO ONE (20:50)
[2023-04-15] MEDS: GABAPENTIN 600 MG TAB PO SCH (22:41)
[2023-04-15] MEDS: MELATONIN 3 MG TAB PO SCH (22:41)
[2023-04-16] MEDS: KETOROLAC TROMETHAMINE 15 MG/ML VIAL IV PRN ×3 (00:52→20:17)
[2023-04-16] MEDS: MoRPHine SULFATE 4 MG/ML 1 ML CARP\\VIAL IV PRN ×4 (06:24→22:24)
[2023-04-16] MEDS: ACETAMINOPHEN 325 MG TAB PO PRN (07:40)
--- NOTE | 2023-04-16 07:43 | Surgery Progress Note ---
Date of Service April 16, 2023 Assessment & Plan (1) SBO (small bowel obstruction): (2) Abdominal pain: (3) Crohn's disease: Plan: Patient with history of Crohn's disease, several surgeries presents with small bowel obstruction. HD stable, without leukocytosis. Afebrile Continue conservative management at this time. Keep n.p.o. today, IV fluids. The patient has not required an NG tube and remains without nausea since admission. We will continue with no NG tube for now unless this changes. Abdominal pain seems to be improving. Consider input from GI with regards to Crohn's. May have DVT prophylaxis, ambulate. Admission and Anticipated Discharge Date Admission Date: April 15, 2023 Subjective Patient seen and examined this AM. Does state that she feels as though her abdominal pain has improved. Although she is waking up to having some pain that she is requesting pain medication for. Denies nausea, fevers or chills Physical Exam Constitutional: no acute distress, not ill appearing, not in distress and not diaphoretic Respiratory: normal respiratory effort; no respiratory distress, no labored breathing and does not use accessory muscles Gastrointestinal (Abdomen): Inspection/Auscultation: abdomen not distended Percussion/Palpation: + abdomen tender (Moderately tender most notable at the right lower quad), + guarding (Voluntary) and abdomen soft; abdomen not rigid Neurologic: moves all extremities and awake; no focal motor deficits, not confused and not obtunded Results & Data Vital Signs (Past 12 Hours) Vital Signs Temp Pulse Resp BP Pulse Ox O2 Del Method 04/16/23 07:11 36.7 C 63 19 147/81 H 92 Room Air 04/15/23 20:03 36.6 C 65 18 151/78 H 98 Room Air PG Care Time/CCT Total # of Minutes Spent Total Time Spent with Patient: Total time spent is greater than 50% in coordination of care (as documented) at patient's floor/unit and/or counseling patient: Coding Level of Care Code 75775 SUB INP/OBS CARE 09/16MIN Diagnoses SBO (small bowel obstruction) K56.609 Abdominal pain R10.9 Crohn's disease K50.90
[2023-04-16] MEDS: ENOXAPARIN INJ 40 MG/0.4 ML SYR SQ SCH (08:12)
[2023-04-16] MEDS: MULTIVITAMIN TAB PO SCH (08:13)
[2023-04-16] MEDS: PANTOprazole 40 MG TAB PO SCH (08:13)
[2023-04-16] MEDS: GABAPENTIN 300 MG CAP PO SCH ×2 (08:13→11:12)
[2023-04-16] MEDS: FLUoxetine HCL 20 MG CAP PO SCH (08:13)
[2023-04-16] MEDS: LORazepam 0.5 MG TAB PO SCH ×3 (08:16→20:12)
[2023-04-16 08:57] LABS: Basophils # (auto) 0.04 K/uL (0.00-0.20); Basophils % (auto) 0.7 %; Eosinophils # (auto) 0.17 K/uL (0.00-0.50); Eosinophils % (auto) 2.9 %; Hematocrit (blood only) 38.1 % (37.0-47.0); Hemoglobin 12.8 g/dl (12.0-16.0); Immature Granulocytes # (auto) 0.02 K/uL (0.01-0.20); Immature Granulocytes % (auto) 0.3 %; Lymphocytes # (auto) 1.37 K/uL (1.20-3.40); Lymphocytes % (auto) 23.7 %; Mean Corpuscular Hemoglobin 29.5 pg (25.0-34.0); Mean Corpuscular Hgb Conc 33.6 g/dL (32.0-36.0); Mean Corpuscular Volume 87.8 fL (80.0-100.0); Mean Platelet Volume 9.1 fL (9.4-12.4); Monocytes # (auto) 0.43 K/uL (0.11-0.59); Monocytes % (auto) 7.4 %; Neutrophils # (auto) 3.76 K/uL (1.40-6.50); Platelet Count 294 K/uL (130-400); RDW Coefficient of Variation 13.2 % (11.5-14.5); RDW Standard Deviation 42.7 fL (36.4-46.3); Red Blood Count 4.34 M/uL (4.20-5.40); White Blood Count 5.79 K/ul (4.8-10.8)
[2023-04-16] MEDS: NICOTINE 14 MG/24 HR PATCH TD SCH (09:11)
[2023-04-16 09:24] LABS: BUN Creatinine Ratio 11.9 (10-20); Calcium 9.1 mg/dl (8.6-10.3); Creatinine Clr Calc Pharmacy 116.4 ml/min; Est GFR (African American) 124.7 ml/min; Est GFR (Non-African American) 107.6 ml/min; Potassium 3.6 mmol/L (3.5-5.1)
[2023-04-16] MEDS: D5W AND LACTATED RINGERS 1,000 ML IV SCH (11:33)
[2023-04-16] MEDS ORDERED: MoRPHine SULFATE 4 MG/ML 1 ML CARP\\VIAL IV STA (17:41)
[2023-04-16] MEDS: D5W AND NSS 1,000 ML IV SCH (18:21)
--- NOTE | 2023-04-16 19:40 | Hospitalist Progress Note ---
Date of Service April 16, 2023 Assessment & Plan (1) SBO (small bowel obstruction): Plan: Recurrent SBO hx Crohn's disease status post surgery on immunosuppressive regimen SBO (likely/possibly) due to scar tissue/adhesions - pain worsening again this evening Morphine IV increased - continue bowel rest, IV fluids - Gen Surg on board hx ADD, anxiety/mood disorder, at baseline ongoing tobacco abuse Nicotine patch DVT prophylaxis. Lovenox subcu Full code plan of care discussed with patient in detail all questions answered she is understanding, agreeable, comfortable with the plan of care Admission and Anticipated Discharge Date Admission Date: April 15, 2023 Subjective ff up for SBO, etc pain improving earlier today has returned this afternoon no nausea has some flatus, no BM no chest pain, dyspnea, palpitations, dizziness no fever/chills no other symptoms Review of Systems Review of Systems: all noted and negative except for above Physical Exam Physical Exam: General- oriented x 3, not in distress, speaks in sentences with no effort or accessory muscle use Eyes- anicteric Neck- no JVD Lungs- clear breath sounds bilaterally, no rales/wheezes Heart- normal rate, regular rhythm; no murmurs Abdomen- hypoactive bowel sounds, nondistended, soft, nontender Extremities- no pretibial edema, no calf tenderness Neuro- alert, oriented x 3; no gross focal neurologic deficits Skin- warm & dry Results & Data Results & Data Vital Signs (Past 12 Hours) Vital Signs Temp Pulse Resp BP Pulse Ox O2 Del Method 04/16/23 15:17 36.7 C 68 19 138/78 91 Room Air all noted and reviewed including below
[2023-04-16] MEDS: GABAPENTIN 600 MG TAB PO SCH (20:13)
[2023-04-16] MEDS: MELATONIN 3 MG TAB PO SCH (20:17)
[2023-04-17] MEDS: MoRPHine SULFATE 4 MG/ML 1 ML CARP\\VIAL IV PRN ×3 (02:32→11:11)
[2023-04-17] MEDS: D5W AND NSS 1,000 ML IV SCH ×2 (06:37→18:01)
[2023-04-17] MEDS: NICOTINE 14 MG/24 HR PATCH TD SCH (08:08)
[2023-04-17] MEDS: GABAPENTIN 300 MG CAP PO SCH ×2 (08:09→11:55)
[2023-04-17] MEDS: LORazepam 0.5 MG TAB PO SCH ×3 (08:09→21:14)
[2023-04-17] MEDS: MULTIVITAMIN TAB PO SCH (08:09)
[2023-04-17] MEDS: PANTOprazole 40 MG TAB PO SCH (08:09)
[2023-04-17] MEDS: FLUoxetine HCL 20 MG CAP PO SCH (08:09)
[2023-04-17] MEDS: ENOXAPARIN INJ 40 MG/0.4 ML SYR SQ SCH (08:09)
--- NOTE | 2023-04-17 08:31 | Gastrointestinal Consultation ---
Date of Consultation April 17, 2023 Assessment & Plan (1) SBO (small bowel obstruction): Pleasant woman with a history of Crohn's disease admitted with second SBO in three months. Both seem to be located at same location. Surgical attempt at last hospitalization was unsuccessful due to adhesive disease. It is difficult to know if this is a Crohn's flare or just SBO related to adhesions. I feel like this is probably adhesive disease so I am not ready to start steroids. Would follow expectantly and advance diet when she improves. She is passing flatus. On last admission gallbladder seemed to be the issue but her ultrasound just shows stones now. History of Present Illness Reason for Consultation: history of Crohn's, small bowel obstruction Attending Physician: Sergey Fernandez MD History of Present Illness 47 year old female with long standing Crohn's disease admitted with small bowel obstruction. She had similar admission in December and also had cholecystitis then. Attempt was made for cholecystectomy but her abdomen was socked in with adhesions. She did well on Stelara but readmitted with pain and obstruction with findings in same location. She has had numerous surgical procedures and seems to have had ileocolonic Crohn's. She has had chronic diarrhea and continues with it except for current admission. She thinks her last flare that she is aware of was about a year and a half ago. She feels she is about an "8" out of 10 now. Allergies Allergy/AdvReac Type Severity Reaction Status Date / Time No Known Allergies Allergy Verified 01/13/23 09:36 Home Medications Medication Instructions Recorded Confirmed Type calcium carbonate 500 mg-vitamin 1 tab PO HS 04/29/22 04/15/23 History D3 5 mcg (200 unit) tablet (Calcium 500 + D) fluoxetine 40 mg capsule 80 mg PO DAILY 04/29/22 04/15/23 History gabapentin 300 mg capsule 300 mg PO BID 04/29/22 04/15/23 History gabapentin 600 mg tablet 600 mg PO HS 04/29/22 04/15/23 History lorazepam 0.5 mg tablet 0.5 mg PO TID 04/29/22 04/15/23 History melatonin 5 mg tablet 5 mg PO HS 04/29/22 04/15/23 History omega-3 fatty acids 1,000 mg 1,000 mg PO QPM 04/29/22 04/15/23 History capsule pantoprazole 40 mg tablet,delayed 40 mg PO DAILY 04/29/22 04/15/23 History release ustekinumab 90 mg/mL subcutaneous 90 mg subcut .[id number] 04/29/22 04/15/23 History syringe (Stelara) diphenoxylate-atropine 2.5 1 tab PO DAILY PRN Diarrhea 12/31/22 04/15/23 History mg-0.025 mg tablet (Lomotil) multivitamin 1 tab PO DAILY 12/31/22 04/15/23 History sodium chloride 0.65 % nasal spray 2 spray intranasal DIRECTED PRN 12/31/22 04/15/23 History aerosol (Saline Nasal) NASAL DRYNESS diclofenac sodium 1 % topical gel 4 g topical TID PRN Pain 04/15/23 04/15/23 History Patient History Medical History Abnormal CT scan, chest Cholelithiasis Chronic maxillary sinusitis Crohn's disease Depression with anxiety Encounter for pre-operative examination History of Clostridioides difficile colitis History of deviated nasal septum History of erythema nodosum History of uveitis Prolonged QT interval Tobacco abuse Surgical History History of colectomy History of colonoscopy Last 07/2019 History of rhinoplasty Multiple nasal surgeries x3 History of surgery (01/04/23) Attempted Laparoscopy, Exploratory Laparotomy, Lysis of Adhesions(Not Applicable) - Alexx Garrett MD, FACS Family History Father Heart disease TIA (transient ischemic attack) Mother Heart disease FH: diverticulitis Sister Crohn's disease Diabetes Social History Smoking Status: Current every day smoker Tobacco Type: Cigarettes Cigarettes Per Day: 1/2 pack per day; Second Hand Exposure: No; Do You Dip or Chew Tobacco: No; Tobacco Cessation Education Requested by Patient: No Hx Alcohol Use: Yes Alcohol type: wine and hard liquor Alcohol type Comment: Once a month Hx Substance Use: No Preferred Language: Turkish Communication Ability: Effective 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 Beliefs That Will Affect Care: None marital status: Single Current Living Situation: Other Current Living Situation Comment: ex boyfriend Other Information That Helps Us Care for You: No Feels Safe at Home: Yes Safety Concerns: Feels Safe At This Time Assistive Devices: None Physical Exam Constitutional: WD/WN, vitals as above no acute distress Eyes: PERRL, conjunctivae normal, anicteric sclerae ENMT: external ear and nose normal, oropharynx normal Neck: trachea midline, no thyromegaly Respiratory: normal respiratory effort, lungs clear to auscultation Cardiovascular: RRR, no murmur, no edema Gastrointestinal (Abdomen): Inspection/Auscultation: abdomen normal to inspection Percussion/Palpation: + abdomen tender (diffusely) and abdomen soft Musculoskeletal: Extremities: no cyanosis and no clubbing Skin: no rashes, warm and dry Neurologic: PERRL, EOMI, accommodation nl, no face palsy, no dysarthria Psychiatric: Orientation: alert and oriented x 3 Results & Data Vital Signs (Past 12 Hours) Vital Signs Temp Pulse Resp BP Pulse Ox O2 Del Method O2 Flow Rate 04/17/23 07:29 36.9 C 66 18 138/74 95 Nasal Cannula 2 Laboratory Results 04/16/23 04/16/23 Range/Units 08:09 08:09 WBC 5.79 (4.8-10.8) K/ul RBC 4.34 (4.20-5.40) M/uL Hgb 12.8 (12.0-16.0) g/dl Hct 38.1 (37.0-47.0) % MCV 87.8 (80.0-100.0) fL MCH 29.5 (25.0-34.0) pg MCHC 33.6 (32.0-36.0) g/dL RDW Std Deviation 42.7 (36.4-46.3) fL RDW Coeff of Samia 13.2 (11.5-14.5) % Plt Count 294 (130-400) K/uL MPV 9.1 L (9.4-12.4) fL Immature Gran % (Auto) 0.3 % Neut % (Auto) 65.0 % Lymph % (Auto) 23.7 % [place] % (Auto) 7.4 % Eos % (Auto) 2.9 % Baso % (Auto) 0.7 % Neut # (Auto) 3.76 (1.40-6.50) K/uL Lymph # (Auto) 1.37 (1.20-3.40) K/uL [place] # (Auto) 0.43 (0.11-0.59) K/uL Eos # (Auto) 0.17 (0.00-0.50) K/uL Baso # (Auto) 0.04 (0.00-0.20) K/uL Immature Gran # (Auto) 0.02 (0.01-0.20) K/uL Sodium 139 (136-145) mmol/L Potassium 3.6 (3.5-5.1) mmol/L Chloride 104 (98-107) mmol/L Carbon Dioxide 30 (21-32) mmol/L Anion Gap 5 (3-11) BUN 7 (6-23) mg/dl Creatinine 0.59 L (0.6-1.2) mg/dl Est Cr Clr Drug Dosing 116.4 ml/min Est GFR ( Amer) 124.7 ml/min Est GFR (Non-Af Amer) 107.6 ml/min BUN/Creatinine Ratio 11.9 (10-20) Glucose 88 (70-99(Fasting)) mg/dl Calcium 9.1 (8.6-10.3) mg/dl Diagnostic Findings Abdomen/Pelvis CT 04/15/23 00:34 Exam(s): CT ABDOMEN + PELVIS With Contrast IV Amt: 92 optiray 320 EXAM: CT Abdomen and Pelvis With Intravenous Contrast CLINICAL HISTORY: Reason for exam: eval for sbo. TECHNIQUE: Axial computed tomography images of the abdomen and pelvis with intravenous contrast. CTDI is 21.76 mGy and DLP is 1188.9 mGy-cm. Automated exposure control was utilized for the study. A dose lowering technique was utilized adhering to the principles of ALARA. CONTRAST: Patient received 92 optiray 320 of IV contrast COMPARISON: CT Abdomen Pelvis dated 12/31/22 FINDINGS: Lung bases: Mild bibasilar atelectasis. ABDOMEN: Liver: Unremarkable. No mass. Gallbladder and bile ducts: Cholelithiasis. No ductal dilation. Pancreas: Unremarkable. No mass. No ductal dilation. Spleen: Unremarkable. No splenomegaly. Adrenals: Unremarkable. No mass. Kidneys and ureters: Unremarkable. No solid mass. No hydronephrosis. Stomach and bowel: Right hemicolectomy as on the prior study. Dilated small bowel loops with air-fluid levels in the mid/left abdomen. Transition point in the anterior mid abdomen with similar appearance on the prior study. This is adjacent to area of colonic bowel sutures. Mild adjacent fat stranding. PELVIS: Appendix: See above. Bladder: Unremarkable. No mass. Reproductive: Unremarkable as visualized. ABDOMEN and PELVIS: Intraperitoneal space: Unremarkable. No free air. No significant fluid collection. Bones/joints: No acute fracture. No dislocation. Soft tissues: Unremarkable. Vasculature: Unremarkable. No abdominal aortic aneurysm. Lymph nodes: Unremarkable. No enlarged lymph nodes. IMPRESSION: 1. Findings likely represent small bowel obstruction with transition point in the anterior mid abdomen. 2. Right hemicolectomy as on the prior study. Electronically signed by: Jonathan Reeder M.D. 04/15/23 02:54 AM Gallbladder Ultrasound 04/15/23 04:06 Exam(s): US GALLBLADDER EXAM: US Abdomen Limited, Gallbladder CLINICAL HISTORY: Reason for exam: RUQ pain. TECHNIQUE: Real-time ultrasound of the right upper quadrant with image documentation. COMPARISON: CT dated 04/15/2023 FINDINGS: Liver: Mild hepatomegaly, 17.6 cm in length. Gallbladder: Multiple shadowing gallbladder stones, largest 1.8 cm. No wall thickening or pericholecystic fluid. Negative sonographic Arzola sign. Common bile duct: Common bile duct 5 mm. No stones. No dilation. Pancreas: Pancreas not visualized due to bowel gas. IMPRESSION: No acute findings in the right upper quadrant. Electronically signed by: Jonathan Reeder M.D. 04/15/23 06:03 AM
--- NOTE | 2023-04-17 09:22 | XRay Report ---
KUB CLINICAL HISTORY: ff up SBO COMPARISON STUDY: CT of the abdomen and pelvis April 15, 2023. FINDINGS: Several loops of mildly dilated gas-filled small bowel quadrant persist. The appearance is similar to prior CT. Although sensitivity is diminished on this supine exam, there is no evidence for free air. IMPRESSION: A few loops of mildly dilated small bowel within the right upper quadrant which favor a persistent partial small bowel obstruction ACT 112: Negative or not required by law. Electronically signed by: Eliseo Saxena M.D. 04/17/2023 9:21 AM
[2023-04-17] MEDS: AMPHETAMINE ASP/SULF/DEXTRAMPH 20 MG TAB PO SCH ×2 (10:18→14:31)
[2023-04-17] MEDS: KETOROLAC TROMETHAMINE 15 MG/ML VIAL IV PRN (10:21)
--- NOTE | 2023-04-17 10:50 | Surgery Progress Note ---
Date of Service April 17, 2023 Assessment & Plan (1) SBO (small bowel obstruction): Plan: secondary to multiple operations for Crohn's disease as well as recent failed open darby due to extensive adhesions. Will continue npo, bowel rest. (2) History of surgery: Plan: multiple prior abdominal surgeries with extensive scar tissue. Admission and Anticipated Discharge Date Admission Date: April 15, 2023 Subjective Still with pain - medications are not working as well as they did at her last visit. some flatus, no nausea. Saw GI this am with recommendations to treat as SBO and not Crohn's flare. Physical Exam Gastrointestinal (Abdomen): soft, diffusely tender, few bowel tones are present, mild distention, well healed midline and open darby incisions Results & Data Vital Signs (Past 12 Hours) Vital Signs Temp Pulse Resp BP Pulse Ox O2 Del Method O2 Flow Rate 04/17/23 07:29 36.9 C 66 18 138/74 95 Nasal Cannula 2
[2023-04-17] MEDS: ACETAMINOPHEN 1,000 MG/100 ML VIAL IV SCH ×2 (11:34→19:19)
--- NOTE | 2023-04-17 12:13 | Hospitalist Progress Note ---
Date of Service April 17, 2023 Assessment & Plan (1) SBO (small bowel obstruction): Plan: Recurrent SBO SBO (likely/possibly) due to scar tissue/adhesions Crohn's disease status post surgery on immunosuppressive regimen - Repeat KUB: Persistent partial small bowel obstruction Morphine IV changed to Dilaudid - continue bowel rest, IV fluids - Gen Surg on board hx ADD, anxiety/mood disorder, at baseline -Adderall ordered ongoing tobacco abuse Nicotine patch DVT prophylaxis. Lovenox subcu Full code plan of care discussed with patient in detail all questions answered she is understanding, agreeable, comfortable with the plan of care Admission and Anticipated Discharge Date Admission Date: April 15, 2023 Subjective Follow-up for small bowel obstruction, etc. Seen resting in bed, not in distress Still having abdominal pain Positive flatus, no bowel movement No nausea or vomiting No fevers or chills no chest pain, dyspnea, palpitations, dizziness No other new symptoms Review of Systems Review of Systems: all noted and negative except for above Physical Exam Physical Exam: General- oriented x 3, not in distress, speaks in sentences with no effort or accessory muscle use Eyes- anicteric Neck- no JVD Lungs- clear breath sounds bilaterally, no crackles or wheezing Heart- normal rate, regular rhythm; no murmurs Abdomen-hypoactive bowel sounds, nondistended, soft, nontender Extremities- no pretibial edema, no calf tenderness Neuro- alert, oriented x 3; no gross focal neurologic deficits Skin- warm & dry Results & Data Results & Data Vital Signs (Past 12 Hours) Vital Signs Temp Pulse Resp BP Pulse Ox O2 Del Method O2 Flow Rate 04/17/23 07:29 36.9 C 66 18 138/74 95 Nasal Cannula 2 all noted and reviewed including below
[2023-04-17] MEDS: DOCUSATE SODIUM/SENNA 50/8.6MG TAB PO SCH (14:31)
[2023-04-17] MEDS: HYDROmorphone INJ 0.5 MG/0.5 ML SYR IV PRN ×3 (14:31→23:48)
[2023-04-17] MEDS: GABAPENTIN 600 MG TAB PO SCH (19:24)
[2023-04-17] MEDS: MELATONIN 3 MG TAB PO SCH (21:14)
[2023-04-18] MEDS: ACETAMINOPHEN 1,000 MG/100 ML VIAL IV SCH ×3 (03:01→20:57)
[2023-04-18] MEDS: HYDROmorphone INJ 0.5 MG/0.5 ML SYR IV PRN ×5 (04:43→21:00)
[2023-04-18] MEDS: D5W AND NSS 1,000 ML IV SCH ×2 (07:38→20:57)
[2023-04-18] MEDS: AMPHETAMINE ASP/SULF/DEXTRAMPH 20 MG TAB PO SCH ×2 (07:39→11:40)
[2023-04-18] MEDS: GABAPENTIN 300 MG CAP PO SCH ×2 (07:39→11:40)
[2023-04-18] MEDS: NICOTINE 14 MG/24 HR PATCH TD SCH (07:40)
[2023-04-18] MEDS: FLUoxetine HCL 20 MG CAP PO SCH (07:40)
[2023-04-18] MEDS: MULTIVITAMIN TAB PO SCH (07:40)
[2023-04-18] MEDS: DOCUSATE SODIUM/SENNA 50/8.6MG TAB PO SCH (07:40)
[2023-04-18] MEDS: PANTOprazole 40 MG TAB PO SCH (07:40)
[2023-04-18] MEDS: KETOROLAC TROMETHAMINE 15 MG/ML VIAL IV PRN (08:05)
--- NOTE | 2023-04-18 08:21 | Gastroenterology Progress Note ---
Date of Service April 18, 2023 Assessment & Plan (1) SBO (small bowel obstruction): Plan: Encouraging that she is having bowel movements. Hopefully will open up soon. Could consider tapering dose of steroids but will let Johana SMITH (her primary GI team) decide that tomorrow Admission and Anticipated Discharge Date Admission Date: April 15, 2023 Subjective Feels about the same as yesterday. Had two small bowel movements yesterday but not passing flatus Physical Exam Physical Exam: Looks uncomfortable Constitutional: WD/WN, vitals as above Results & Data Vital Signs (Past 12 Hours) Vital Signs Temp Pulse Resp BP Pulse Ox O2 Del Method 04/18/23 07:25 36.8 C 64 14 137/78 94 Room Air 04/17/23 22:19 36.8 C 70 16 149/86 H 96 Room Air
[2023-04-18] MEDS: ENOXAPARIN INJ 40 MG/0.4 ML SYR SQ SCH (08:35)
[2023-04-18] MEDS: LORazepam 0.5 MG TAB PO SCH ×3 (08:35→20:59)
[2023-04-18 08:55] LABS: BUN Creatinine Ratio 9.1 (10-20); Calcium 9.2 mg/dl (8.6-10.3); Est GFR (African American) 120.2 ml/min; Est GFR (Non-African American) 103.7 ml/min; Magnesium 1.9 mg/dl (1.7-2.4); Potassium 3.5 mmol/L (3.5-5.1)
--- NOTE | 2023-04-18 11:21 | Surgery Progress Note ---
Date of Service April 18, 2023 Assessment & Plan (1) SBO (small bowel obstruction): Plan: secondary to multiple operations for Crohn's disease as well as recent failed open darby due to extensive adhesions. Had a few bowel movements but pain persists. Reasonable to try clear liquids - discussed stopping if the pain worsens with drinking. (2) History of surgery: Plan: multiple prior abdominal surgeries with extensive scar tissue. Admission and Anticipated Discharge Date Admission Date: April 15, 2023 Subjective Still with pain but the dilaudid is working better. Hoping to get the dilaudid more frequently - will defer to medicine. No nausea/ vomiting. Passed two liquid bowel movements yesterday. Not feeling bloated. Wants to try liquids. Physical Exam Constitutional: WD/WN, vitals as above Gastrointestinal (Abdomen): Inspection/Auscultation: abdomen normal to inspection, + abdominal surgical scar (midline and right upper quadrant) and + hypoactive bowel sounds; abdomen not distended Percussion/Palpation: + abdomen tender (mild, improved) and abdomen soft Neurologic: awake; no focal motor deficits Results & Data Vital Signs (Past 12 Hours) Vital Signs Temp Pulse Resp BP Pulse Ox O2 Del Method 04/18/23 07:30 Room Air 04/18/23 07:25 36.8 C 64 14 137/78 94 Room Air Laboratory Results 04/18/23 Range/Units 08:24 Sodium 138 (136-145) mmol/L Potassium 3.5 (3.5-5.1) mmol/L Chloride 103 (98-107) mmol/L Carbon Dioxide 30 (21-32) mmol/L Anion Gap 5 (3-11) BUN 6 (6-23) mg/dl Creatinine 0.66 (0.6-1.2) mg/dl Est Cr Clr Drug Dosing 104.0 ml/min Est GFR ( Amer) 120.2 ml/min Est GFR (Non-Af Amer) 103.7 ml/min BUN/Creatinine Ratio 9.1 L (10-20) Glucose 96 (70-99(Fasting)) mg/dl Calcium 9.2 (8.6-10.3) mg/dl Magnesium 1.9 (1.7-2.4) mg/dl
--- NOTE | 2023-04-18 18:27 | Hospitalist Progress Note ---
Date of Service April 18, 2023 Assessment & Plan (1) SBO (small bowel obstruction): Plan: Recurrent SBO SBO (likely/possibly) due to scar tissue/adhesions Crohn's disease status post surgery on immunosuppressive regimen 04/17 - Repeat KUB: Persistent partial small bowel obstruction Morphine IV changed to Dilaudid 04/18 Positive small BMs Trial of clear liquids today Dilaudid changed to every 3 hours per patient's request for better pain control Continue to monitor closely General surgery on board hx ADD, anxiety/mood disorder, at baseline -Usual Adderall ongoing tobacco abuse Nicotine patch DVT prophylaxis. Lovenox subcu Full code plan of care discussed with patient in detail all questions answered she is understanding, agreeable, comfortable with the plan of care Admission and Anticipated Discharge Date Admission Date: April 15, 2023 Subjective Follow-up for small bowel obstruction, etc. Seen resting in bed, sleeping but easily awakened States she still having abdominal pain, but tolerated clear liquids so far No nausea or vomiting Positive small BMs No fevers or chills No other symptom Review of Systems Review of Systems: all noted and negative except for above Physical Exam Physical Exam: General- oriented x 3, not in distress, speaks in sentences with no effort or accessory muscle use Eyes- anicteric Neck- no JVD Lungs- clear breath sounds bilaterally, no crackles or wheezing Heart- normal rate, regular rhythm; no murmurs Abdomen- normal bowel sounds, nondistended, soft, mild tenderness in all quadrants Extremities- no pretibial edema, no calf tenderness Neuro- alert, oriented x 3; no gross focal neurologic deficits Skin- warm & dry Results & Data Results & Data Vital Signs (Past 12 Hours) Vital Signs Temp Pulse Resp BP Pulse Ox O2 Del Method 04/18/23 15:11 37.0 C 80 20 145/81 H 92 Room Air 04/18/23 07:30 Room Air 04/18/23 07:25 36.8 C 64 14 137/78 94 Room Air all noted and reviewed including below
[2023-04-18] MEDS: GABAPENTIN 600 MG TAB PO SCH (20:59)
[2023-04-18] MEDS: MELATONIN 3 MG TAB PO SCH (21:00)
[2023-04-19] MEDS: HYDROmorphone INJ 0.5 MG/0.5 ML SYR IV PRN ×8 (00:05→23:15)
[2023-04-19] MEDS: ACETAMINOPHEN 1,000 MG/100 ML VIAL IV SCH ×3 (03:09→20:12)
[2023-04-19 07:36] LABS: BUN Creatinine Ratio 8.7 (10-20); Creatinine Clr Calc Pharmacy 99.5 ml/min; Est GFR (African American) 118.5 ml/min; Est GFR (Non-African American) 102.2 ml/min; Magnesium 1.6 mg/dl (1.7-2.4); Potassium 3.1 mmol/L (3.5-5.1)
[2023-04-19] MEDS: GABAPENTIN 300 MG CAP PO SCH ×2 (08:37→12:46)
[2023-04-19] MEDS: PANTOprazole 40 MG TAB PO SCH (08:38)
[2023-04-19] MEDS: MULTIVITAMIN TAB PO SCH (08:38)
[2023-04-19] MEDS: DOCUSATE SODIUM/SENNA 50/8.6MG TAB PO SCH ×2 (08:38→08:41)
[2023-04-19] MEDS: FLUoxetine HCL 20 MG CAP PO SCH (08:39)
[2023-04-19] MEDS: ENOXAPARIN INJ 40 MG/0.4 ML SYR SQ SCH (08:40)
[2023-04-19] MEDS: NICOTINE 14 MG/24 HR PATCH TD SCH (08:40)
[2023-04-19] MEDS: AMPHETAMINE ASP/SULF/DEXTRAMPH 20 MG TAB PO SCH ×2 (08:50→12:45)
[2023-04-19] MEDS: LORazepam 0.5 MG TAB PO SCH ×3 (08:50→20:13)
[2023-04-19] MEDS ORDERED: POTASSIUM CHLORIDE CRTAB 20 MEQ TABCR PO STA (09:18)
[2023-04-19] MEDS: D5W AND NSS 1,000 ML IV SCH ×2 (09:19→21:58)
--- NOTE | 2023-04-19 09:33 | Gastroenterology Progress Note ---
Date of Service April 19, 2023 Assessment & Plan (1) SBO (small bowel obstruction): (2) History of surgery: (3) Abdominal pain: (4) Crohn's disease: Plan 47 y/o male with PMHX Crohn's disease on Stelara, last colonoscopy in 06/2022 w/ remission, now admitted with suspicion of SBO, that is clinically improved as she is now passing flatus, stooling, and tolerating clears. There is question of whether this is related to a Crohn's flare vs adhesions of which she has a significant amount. Abd soft, nontender. She does have acute on chronic abd pain and loose stools at baseline; she's afebrile with normal WBC. - Continue clears as tolerated - Check C diff, CRP - If C diff neg, will start course of steroids and continue 10 day taper after DC, with f/u with her regular GI provider at that point. - Monitor and correct potassium as needed - Encourage ambulation - Consider repeat imaging/SBFT, last KUB 04/17 - Surgery also following Thank you for allowing us to participate in the care of this patient. Please call with any acute changes, questions or concerns. Please see addendum below with additional recommendation from my supervising physician. Admission and Anticipated Discharge Date Admission Date: April 15, 2023 Supervising Physician Co-Signing Physician Notes Patient was seen and examined on 04/19 with Pricila Gordon PA-C whose note reflects our findings and plan. Steroid taper if C diff is negative. Outpatient visit with in the next 3-4 weeks. Please call with questions. Subjective Patient seen and examined, chart reviewed. Overnight pt is tolerating clear liquids, had 2-3 loose BMs, passing flatus. She can't say if they had blood or not. She says at baseline she's had loose stools for many years. Denies melena. Has ongoing abd pain; this is in the lower quadrants; initially came in with RLQ pain. She says she's had this pain off and on for some time; just seems worse now. Potassium 3.1 this AM. Normal WBC. Denies nausea, vomiting, hematemesis, fever, chills, CP, SOB, dysuria. Review of Systems Review of Systems: All systems reviewed & are unremarkable except as noted in HPI & below Physical Exam Constitutional: well developed, well nourished and comfortable; no acute distress Eyes: Sclera anicteric, no conjunctival injection ENMT: moist mucous membranes, no pallor Neck: trachea midline supple Respiratory: normal respiratory effort, lungs clear to auscultation Cardiovascular: RRR, no murmur, no edema Gastrointestinal (Abdomen): Inspection/Auscultation: abdomen not distended (multiple well-healed surgical scars to the abdomen; soft, BS x 4 quads) nontender Skin: no rashes, warm and dry Neurologic: alert and oriented x 3, no obvious focal neuro deficit Psychiatric: normal mood and affect Results & Data Vital Signs (Past 12 Hours) Vital Signs Temp Pulse Resp BP Pulse Ox O2 Del Method 04/19/23 07:04 36.4 C L 61 16 141/82 H 94 Room Air Laboratory Results 04/19/23 04/19/23 Range/Units 11:17 06:47 Sodium 138 (136-145) mmol/L Potassium 3.1 L (3.5-5.1) mmol/L Chloride 104 (98-107) mmol/L Carbon Dioxide 28 (21-32) mmol/L Anion Gap 6 (3-11) BUN 6 (6-23) mg/dl Creatinine 0.69 (0.6-1.2) mg/dl Est Cr Clr Drug Dosing 99.5 ml/min Est GFR ( Amer) 118.5 ml/min Est GFR (Non-Af Amer) 102.2 ml/min BUN/Creatinine Ratio 8.7 L (10-20) Glucose 90 (70-99(Fasting)) mg/dl Calcium 9.0 (8.6-10.3) mg/dl Magnesium 1.6 L (1.7-2.4) mg/dl C-Reactive Protein 2.22 H (0-0.5) mg/dl
[2023-04-19] MEDS: MAGNESIUM SULFATE / D5W 1 GM/100 ML BAG IV SCH ×2 (09:34→11:20)
--- NOTE | 2023-04-19 10:59 | Surgery Progress Note ---
Date of Service April 19, 2023 Assessment & Plan (1) SBO (small bowel obstruction): Plan: SBO seems to be resolving as she is now passing flatus, currently tolerating clears. Remains afebrile, HD stable and without leukocytosis. Will continue clears for today. IVF until she is tolerating clears well. GI is seeing her today as she is well known to them for general GI issues and h/o IBD. May consider a SBFT. Encourage ambulation. We will follow up in the am. Admission and Anticipated Discharge Date Admission Date: April 15, 2023 Subjective Patient was seen and examined this am. She continues to c/o abdominal pain. She now says she feels pain radiating to her rectum. She is not nauseous with clear liquids but does admit that she feels cramping with them. She says she is passing flatus and had a BM. She is unable to tell if this contained blood. No fevers or chills. Physical Exam Constitutional: cooperative; no acute distress, not diaphoretic and not lethargic Respiratory: normal respiratory effort; no respiratory distress, no labored breathing and does not use accessory muscles Gastrointestinal (Abdomen): Inspection/Auscultation: abdomen not distended Percussion/Palpation: + abdomen tender (lower quadrants, decreased TTP at the RLQ compared to previous) and abdomen soft; no guarding and abdomen not rigid Neurologic: awake; no focal motor deficits, not confused and not obtunded Results & Data Vital Signs (Past 12 Hours) Vital Signs Temp Pulse Resp BP Pulse Ox O2 Del Method 04/19/23 07:04 36.4 C L 61 16 141/82 H 94 Room Air PG Care Time/CCT Total # of Minutes Spent Total Time Spent with Patient: Total time spent is greater than 50% in coordination of care (as documented) at patient's floor/unit and/or counseling patient: Coding Level of Care Code 03009 SUB INP/OBS CARE 09/16MIN Diagnoses SBO (small bowel obstruction) K56.609
--- NOTE | 2023-04-19 18:50 | Hospitalist Progress Note ---
Date of Service April 19, 2023 Assessment & Plan (1) SBO (small bowel obstruction): Plan: Recurrent SBO SBO (likely/possibly) due to scar tissue/adhesions Crohn's disease status post surgery on immunosuppressive regimen 04/17 - Repeat KUB: Persistent partial small bowel obstruction Morphine IV changed to Dilaudid 04/19 Positive small BMs Tolerating clear liquids day #2 Continue pain control General surgery on board GI consulted, C. difficile checked If negative, start steroid taper hx ADD, anxiety/mood disorder, at baseline -Usual Adderall ongoing tobacco abuse Nicotine patch DVT prophylaxis. Lovenox subcu Full code plan of care discussed with patient in detail all questions answered she is understanding, agreeable, comfortable with the plan of care Admission and Anticipated Discharge Date Admission Date: April 15, 2023 Subjective Follow-up for small bowel obstruction, etc. Resting in bed, comfortable Still having some abdominal pain but tolerating clear liquids well No nausea or vomiting Positive small BMs No other symptoms Review of Systems Review of Systems: all noted and negative except for above Physical Exam Physical Exam: General- oriented x 3, not in distress, speaks in sentences with no effort or accessory muscle use Eyes- anicteric Neck- no JVD Lungs- clear breath sounds bilaterally, no rales/wheezes Heart- normal rate, regular rhythm; no murmurs Abdomen- normal bowel sounds, nondistended, soft, nontender Extremities- no pretibial edema, no calf tenderness Neuro- alert, oriented x 3; no gross focal neurologic deficits Skin- warm & dry Results & Data Results & Data Vital Signs (Past 12 Hours) Vital Signs Temp Pulse Resp BP Pulse Ox O2 Del Method 04/19/23 14:34 36.7 C 73 16 130/77 92 Room Air 04/19/23 07:04 36.4 C L 61 16 141/82 H 94 Room Air all noted and reviewed including below
[2023-04-19] MEDS: GABAPENTIN 600 MG TAB PO SCH (20:13)
[2023-04-19] MEDS: MELATONIN 3 MG TAB PO SCH (20:13)
[2023-04-20] MEDS: ACETAMINOPHEN 1,000 MG/100 ML VIAL IV SCH (02:35)
[2023-04-20] MEDS: HYDROmorphone INJ 0.5 MG/0.5 ML SYR IV PRN ×7 (02:36→23:31)
--- NOTE | 2023-04-20 08:14 | Communication Note ---
Date of Service: April 20, 2023 Cdiff negative. Upon DC, continue Prednisone taper: 40mg daily x 1 week, 30mg daily x 1 week, 20mg daily x 1week, 15mg daily x 1week, 10mg daily x 1 week, 5mg daily x 1 week. Please set up f/u with Dr. Cheryl Rowley
[2023-04-20 08:25] LABS: Basophils # (auto) 0.02 K/uL (0.00-0.20); Basophils % (auto) 0.4 %; Eosinophils # (auto) 0.09 K/uL (0.00-0.50); Eosinophils % (auto) 1.7 %; Hematocrit (blood only) 37.8 % (37.0-47.0); Hemoglobin 12.6 g/dl (12.0-16.0); Immature Granulocytes # (auto) 0.02 K/uL (0.01-0.20); Immature Granulocytes % (auto) 0.4 %; Lymphocytes # (auto) 1.06 K/uL (1.20-3.40); Lymphocytes % (auto) 20.5 %; Mean Corpuscular Hemoglobin 29.6 pg (25.0-34.0); Mean Corpuscular Hgb Conc 33.3 g/dL (32.0-36.0); Mean Corpuscular Volume 88.9 fL (80.0-100.0); Monocytes # (auto) 0.67 K/uL (0.11-0.59); Neutrophils # (auto) 3.31 K/uL (1.40-6.50); Platelet Count 281 K/uL (130-400); RDW Coefficient of Variation 13.2 % (11.5-14.5); RDW Standard Deviation 43.3 fL (36.4-46.3); Red Blood Count 4.25 M/uL (4.20-5.40); White Blood Count 5.17 K/ul (4.8-10.8)
[2023-04-20 08:43] LABS: BUN Creatinine Ratio 8.3 (10-20); Calcium 8.8 mg/dl (8.6-10.3); Creatinine Clr Calc Pharmacy 114.4 ml/min; Potassium 3.3 mmol/L (3.5-5.1)
[2023-04-20] MEDS: AMPHETAMINE ASP/SULF/DEXTRAMPH 20 MG TAB PO SCH ×2 (08:50→12:23)
[2023-04-20] MEDS: FLUoxetine HCL 20 MG CAP PO SCH (08:51)
[2023-04-20] MEDS: PANTOprazole 40 MG TAB PO SCH (08:52)
[2023-04-20] MEDS: MULTIVITAMIN TAB PO SCH (08:52)
[2023-04-20] MEDS: NICOTINE 14 MG/24 HR PATCH TD SCH (08:53)
[2023-04-20] MEDS: GABAPENTIN 300 MG CAP PO SCH ×2 (08:53→12:24)
[2023-04-20] MEDS: DOCUSATE SODIUM/SENNA 50/8.6MG TAB PO SCH (08:53)
[2023-04-20] MEDS: ENOXAPARIN INJ 40 MG/0.4 ML SYR SQ SCH (08:58)
[2023-04-20] MEDS: LORazepam 0.5 MG TAB PO SCH ×3 (08:58→20:26)
[2023-04-20] MEDS: D5W AND NSS 1,000 ML IV SCH ×2 (10:54→23:30)
--- NOTE | 2023-04-20 15:43 | Hospitalist Progress Note ---
Date of Service April 20, 2023 Assessment & Plan (1) SBO (small bowel obstruction): Plan: Recurrent SBO SBO (likely/possibly) due to scar tissue/adhesions Crohn's disease status post surgery on immunosuppressive regimen 04/17 - Repeat KUB: Persistent partial small bowel obstruction 04/19 -Positive small BMs - Tolerating clear liquids day #2 Continue pain control General surgery on board - will defer diet upgrades to them Appreciate GI recommendations, C diff negative therefore steroid taper recommended at discharge ---Upon DC, continue Prednisone taper: 40mg daily x 1 week, 30mg daily x 1 week, 20mg daily x 1week, 15mg daily x 1week, 10mg daily x 1 week, 5mg daily x 1 week. Please set up f/u with Dr. Cheryl Rowley CBC, CMP, Mag ordered for a.m. will defer to gen surgery regarding SBFT hx ADD, anxiety/mood disorder, at baseline chronic,s table Usual Adderall ongoing tobacco abuse Nicotine patch DVT prophylaxis. Lovenox subcu Dispo: will await surgery clearance prior to diet upgrade/discharge, consult PT/OT FULL CODE Pt was seen and examined in collaboration with Dr. Fernandez, please see addendum Admission and Anticipated Discharge Date Admission Date: April 15, 2023 Supervising Physician Co-Signing Physician Notes Attending Addendum: care coordinated with GAMAL Wilkinson please refer to her notes for full details, I agree with her notes patient seen and examined, records reviewed by myself as well diagnoses and plan of care as per GAMAL Wilkinson's notes Sergey Fernandez MD Subjective Follow-up for small bowel obstruction, etc. She continues to have pain 6 out of 10. She denies nausea, vomiting. She denies fever, chills, sweats, lightheadedness, dizziness, chest pain or shortness of breath. Tolerating clears. Review of Systems Review of Systems: All systems reviewed & are unremarkable except as noted in HPI & below Physical Exam Physical Exam: Gen: WD/WN, NAD, A&O x3 HEENT: Normocephalic, atraumatic, conjunctivae moist, sclerae anicteric, mucous membranes moist. Lung: Clear to Auscultation bilaterally, no wheezes/rales/rhonchi Heart: Regular rate, regular rhythm, no murmurs, rubs, or gallops Abdomen: Soft, NT, ND +BS x 4 Extremities: No edema Skin: Warm, no rash, negative turgor. Results & Data Results & Data Vital Signs (Past 12 Hours) Vital Signs Temp Pulse Resp BP Pulse Ox O2 Del Method 04/20/23 08:01 36.8 C 69 16 129/77 94 Room Air Laboratory Results Short CBC 04/20/23 Range/Units 07:53 WBC 5.17 (4.8-10.8) K/ul Hgb 12.6 (12.0-16.0) g/dl Hct 37.8 (37.0-47.0) % Plt Count 281 (130-400) K/uL BMP 04/20/23 07:53 Sodium 138 Potassium 3.3 L Chloride 107 Carbon Dioxide 26 BUN 5 L Creatinine 0.60 Glucose 89 Calcium 8.8 Medications Administered Current Inpatient Medications Amphetamine/Dextroamphetamine (Amphetamine Asp/Sulf/Dextramph 20 Mg Tab) 5 mg PO BID@0800,1200 [facility] Stop: 05/01/23 08:59 Last Admin: 04/20/23 12:23 Dose: 5 mg Diclofenac Sodium (Diclofenac Sod 1% Gel 100 Gm Tube) 4 gm EXT TID PRN; Protocol PRN Reason: Pain Stop: 05/15/23 05:56 Enoxaparin Sodium (Enoxaparin Inj 40 Mg/0.4 Ml Syr) 40 mg SQ QAM [facility] Stop: 05/15/23 08:59 Last Admin: 04/20/23 08:58 Dose: 40 mg Fluoxetine HCl (Fluoxetine Hcl 20 Mg Cap) 80 mg PO DAILY [facility] Stop: 05/15/23 08:59 Last Admin: 04/20/23 08:51 Dose: 80 mg Gabapentin (Gabapentin 600 Mg Tab) 600 mg PO HS [facility] Stop: 05/15/23 20:59 Last Admin: 04/19/23 20:13 Dose: 600 mg Gabapentin (Gabapentin 300 Mg Cap) 300 mg PO 0800,1200 [facility] Stop: 05/15/23 07:59 Last Admin: 04/20/23 12:24 Dose: 300 mg Hydromorphone HCl (Hydromorphone Inj 0.5 Mg/0.5 Ml Syr) 0.5 mg IV Q3H PRN PRN Reason: moderate to severe pain Stop: 05/01/23 12:13 Last Admin: 04/20/23 12:34 Dose: 0.5 mg Promethazine HCl 12.5 mg/ (Sodium Chloride) 50.5 mls @ 202 mls/hr IV Q6H PRN PRN Reason: Nausea And Vomiting Stop: 05/15/23 03:22 Last Infusion: 04/15/23 20:33 Dose: Infused Dextrose/Sodium Chloride (D5w And Nss) 1,000 mls @ 80 mls/hr IV .[id number] [facility] Stop: 05/16/23 17:59 Last Admin: 04/20/23 10:54 Dose: 80 mls/hr Lorazepam (Lorazepam 0.5 Mg Tab) 0.5 mg PO TID [facility] Stop: 05/15/23 08:59 Last Admin: 04/20/23 13:58 Dose: 0.5 mg Melatonin (Melatonin 3 Mg Tab) 6 mg PO HSZ [facility] Stop: 05/15/23 21:59 Last Admin: 04/19/23 20:13 Dose: 6 mg Miscellaneous (Remove Nicoderm Patch) 1 each N/A DAILY@0859 [facility] Stop: 05/16/23 08:58 Last Admin: 04/20/23 08:53 Dose: 1 each Multivitamins (Multivitamin Tab) 1 tab PO DAILY [facility] Stop: 05/15/23 08:59 Last Admin: 04/20/23 08:52 Dose: 1 tab Nicotine (Nicotine 14 Mg/24 Hr Patch) 14 mg TD QAM [facility] Stop: 05/16/23 08:59 Last Admin: 04/20/23 08:53 Dose: 14 mg Pantoprazole Sodium (Pantoprazole 40 Mg Tab) 40 mg PO DAILY [facility] Stop: 05/15/23 08:59 Last Admin: 04/20/23 08:52 Dose: 40 mg Senna/Docusate Sodium (Docusate Sodium/Senna 50/8.6mg Tab) 1 tab PO QAM [facility] Stop: 05/17/23 12:29 Last Admin: 04/20/23 08:53 Dose: Not Given Sodium Chloride (Sodium Chloride 0.65% Na Soln 45 Ml ([place])) 2 sprays NA UD PRN PRN Reason: NASAL DRYNESS Stop: 05/15/23 05:56
[2023-04-20] MEDS ORDERED: predniSONE 10 MG TABLET PO ONE (16:15)
[2023-04-20] MEDS ORDERED: POTASSIUM CHLORIDE CRTAB 20 MEQ TABCR PO STA (16:41)
[2023-04-20] MEDS: MELATONIN 3 MG TAB PO SCH (20:26)
[2023-04-20] MEDS: GABAPENTIN 600 MG TAB PO SCH (20:27)
[2023-04-21] MEDS: HYDROmorphone INJ 0.5 MG/0.5 ML SYR IV PRN ×6 (04:57→21:25)
[2023-04-21] MEDS: LORazepam 0.5 MG TAB PO SCH ×3 (08:06→20:35)
[2023-04-21] MEDS: DOCUSATE SODIUM/SENNA 50/8.6MG TAB PO SCH (08:06)
[2023-04-21] MEDS: PANTOprazole 40 MG TAB PO SCH (08:07)
[2023-04-21] MEDS: NICOTINE 14 MG/24 HR PATCH TD SCH (08:07)
[2023-04-21] MEDS: MULTIVITAMIN TAB PO SCH (08:07)
[2023-04-21] MEDS: FLUoxetine HCL 20 MG CAP PO SCH (08:07)
[2023-04-21] MEDS: ENOXAPARIN INJ 40 MG/0.4 ML SYR SQ SCH (08:07)
[2023-04-21] MEDS: AMPHETAMINE ASP/SULF/DEXTRAMPH 20 MG TAB PO SCH ×2 (08:08→12:59)
[2023-04-21] MEDS: GABAPENTIN 300 MG CAP PO SCH ×2 (08:08→13:00)
--- NOTE | 2023-04-21 08:29 | Surgery Progress Note ---
Date of Service April 20, 2023 Assessment & Plan (1) SBO (small bowel obstruction): (2) Abdominal pain: Plan: SBO seems greatly improved. Patient still with abdominal discomfort and notably when taking an oral intake. GI on board. Likely to start oral steroids. Would continue clears for now Admission and Anticipated Discharge Date Admission Date: April 15, 2023 Subjective Patient was seen and examined. Says she feels unchanged. Denies nausea or vomiting with clear liquids. Is continue to pass gas and have bowel movements. Complains of increased cramping with the oral intake. Physical Exam Constitutional: no acute distress, not diaphoretic and not lethargic Appears comfortable during interview and exam Respiratory: normal respiratory effort; no respiratory distress, no labored breathing and does not use accessory muscles Gastrointestinal (Abdomen): Abdomen is tender to palpation but feels less so. This today the abdomen was less tender the state the abdomen seemed less tender the right lower quadrant were previously most tender. Nondistended, no peritonitis. Results & Data Vital Signs (Past 12 Hours) Vital Signs Temp Pulse Resp BP Pulse Ox O2 Del Method 04/21/23 07:21 36.7 C 75 16 131/73 92 Room Air 04/20/23 20:35 Room Air PG Care Time/CCT Total # of Minutes Spent Total Time Spent with Patient: Total time spent is greater than 50% in coordination of care (as documented) at patient's floor/unit and/or counseling patient: Coding Level of Care Code 56272 SUB INP/OBS CARE 1/25MIN Diagnoses SBO (small bowel obstruction) K56.609 Abdominal pain R10.9
--- NOTE | 2023-04-21 08:33 | Surgery Progress Note ---
Date of Service April 21, 2023 Assessment & Plan (1) SBO (small bowel obstruction): Plan: SBO seems to be resolved with only partial. We will continue clears as patient does still admit to cramping with oral intake. Was started on steroids late yesterday will monitor for improvement (2) Abdominal pain: Admission and Anticipated Discharge Date Admission Date: April 15, 2023 Subjective Patient seen this AM. Continues to say she feels unchanged. Continues to deny obstructive symptoms. Is tolerating clear liquids with cramping. Physical Exam Constitutional: no acute distress, not in distress and not diaphoretic Comfortable during my interview Respiratory: normal respiratory effort; no respiratory distress, no labored breathing and does not use accessory muscles Gastrointestinal (Abdomen): Unchanged Results & Data Vital Signs (Past 12 Hours) Vital Signs Temp Pulse Resp BP Pulse Ox O2 Del Method 04/21/23 07:21 36.7 C 75 16 131/73 92 Room Air 04/20/23 20:35 Room Air PG Care Time/CCT Total # of Minutes Spent Total Time Spent with Patient: Total time spent is greater than 50% in coordination of care (as documented) at patient's floor/unit and/or counseling patient: Coding Level of Care Code 58211 SUB INP/OBS CARE 25MIN Diagnoses SBO (small bowel obstruction) K56.609 Abdominal pain R10.9 Abdominal location: unspecified location (2) Abdominal pain Abdominal location: unspecified location Qualified Code(s): R10.9 - Unspecified abdominal pain
[2023-04-21] MEDS ORDERED: predniSONE 10 MG TABLET PO SCH (09:00)
[2023-04-21] MEDS ORDERED: ACETAMINOPHEN 500 MG TAB PO STA (09:25)
[2023-04-21] MEDS: D5W AND NSS 1,000 ML IV SCH ×2 (09:34→21:38)
[2023-04-21 10:09] LABS: Albumin Level 3.8 gm/dl (3.4-5.0); Bilirubin,Total 0.3 mg/dl (0.2-1.0); Calcium 9.4 mg/dl (8.6-10.3); Magnesium 1.8 mg/dl (1.7-2.4); Potassium 3.5 mmol/L (3.5-5.1)
[2023-04-21 10:15] LABS: Albumin Globulin Ratio 1.1 (0.9-2); BUN Creatinine Ratio 9.3 (10-20); Creatinine Clr Calc Pharmacy 127.1 ml/min; Est GFR (African American) 128.4 ml/min; Est GFR (Non-African American) 110.8 ml/min; Globulin 3.4 gm/dl (2.5-4.0); Total Protein 7.2 gm/dl (6.0-8.3)
[2023-04-21 11:24] LABS: Basophils # (auto) 0.02 K/uL (0.00-0.20); Basophils % (auto) 0.5 %; Eosinophils # (auto) 0.01 K/uL (0.00-0.50); Eosinophils % (auto) 0.3 %; Hematocrit (blood only) 41.3 % (37.0-47.0); Hemoglobin 13.7 g/dl (12.0-16.0); Immature Granulocytes # (auto) 0.02 K/uL (0.01-0.20); Immature Granulocytes % (auto) 0.5 %; Lymphocytes # (auto) 1.42 K/uL (1.20-3.40); Lymphocytes % (auto) 37.3 %; Mean Corpuscular Hemoglobin 29.8 pg (25.0-34.0); Mean Corpuscular Hgb Conc 33.2 g/dL (32.0-36.0); Mean Corpuscular Volume 89.8 fL (80.0-100.0); Mean Platelet Volume 10.1 fL (9.4-12.4); Monocytes # (auto) 0.42 K/uL (0.11-0.59); Neutrophils # (auto) 1.92 K/uL (1.40-6.50); Neutrophils % (auto) 50.4 %; Platelet Count 295 K/uL (130-400); RDW Coefficient of Variation 13.5 % (11.5-14.5); RDW Standard Deviation 44.1 fL (36.4-46.3); White Blood Count 3.81 K/ul (4.8-10.8)
--- NOTE | 2023-04-21 13:03 | Communication Note ---
Date of Service: April 21, 2023 We were asked to touch base with Keiry and review plan of care for her suspected Crohn's flare, given elevated CRP, neg C diff. At this point she is stooling 3 loose BMs daily; dealing with intermittent abd pain but no nausea, vomiting and tolerating a clear liquid diet. Abd soft, nondistended. She is very tearful, says she is depressed but hopeful to get back to work. She was started on PO prednisone however she is asking to be put on IV Solumedrol in the hospital and transition to PO prednisone on DC; this is what she typically would be on in the past. - Can start IV Solumedrol now in the hospital and transition to PO prednisone - 40 mg daily x 1 week, then 30 mg daily x 1 week, then 20 mg daily x 1 week, then 15 mg daily x 1 week, then 10 mg daily x 1 week, then 5 mg daily x 1 week then stop. - Hopefully can advance as tolerated and encouraged ambulation, OOB as able - Outpatient visit with in the next 3-4 weeks
--- NOTE | 2023-04-21 14:46 | Hospitalist Progress Note ---
Date of Service April 21, 2023 Assessment & Plan (1) SBO (small bowel obstruction): Plan: Recurrent SBO SBO (likely/possibly) due to scar tissue/adhesions Crohn's disease status post surgery on immunosuppressive regimen 04/17 - Repeat KUB: Persistent partial small bowel obstruction 04/19 -Positive small BMs - Tolerating clear liquids day #2 Continue pain control General surgery on board - will defer diet upgrades to them Appreciate GI recommendations, C diff negative therefore steroid taper recommended at discharge ---Upon DC, continue Prednisone taper: 40mg daily x 1 week, 30mg daily x 1 week, 20mg daily x 1week, 15mg daily x 1week, 10mg daily x 1 week, 5mg daily x 1 week. Please set up f/u with Dr. Cheryl Rowley Per GI -pt requesting IV steroid so will add and place oral regimen on hold schedule APAP hx ADD, anxiety/mood disorder, at baseline chronic,s table Usual Adderall ongoing tobacco abuse Nicotine patch DVT prophylaxis. Lovenox subcu Dispo: will await surgery clearance prior to diet upgrade/discharge, consult PT/OT FULL CODE Pt was seen and examined in collaboration with Dr. Riley, please see addendum Admission and Anticipated Discharge Date Admission Date: April 15, 2023 Supervising Physician Co-Signing Physician Notes Attending addendum: Patient was seen and examined in medical floor She continues to have pain in the abdomen without any nausea, vomiting or distention Has been moving bowel and requiring [id number] intravenous Dilaudid to control pain She is very anxious that she is not getting intravenous Solu-Medrol for Crohn's flare She was reassured that she will be seen by GI today On examination Very anxious Crying in pain Hemodynamically stable Abdomen-soft, not distended, mildly tender in the right lower quadrant, bowel sound present Her labs and imaging studies reviewed SBO in setting of likely Crohn's flare Appreciate GI input-started on intravenous Solu-Medrol Appreciate surgery input Review with assessment and plan as outlined above by Tammi Riley Subjective Pt seen and examined in rom [id number]. F/U SBO. Continues with abd pain. Tolerating clears. +nausea, no vomiting. Requesting more pain meds. Denies f/c/s, chest pain, sob. Review of Systems Review of Systems: All systems reviewed & are unremarkable except as noted in HPI & below Physical Exam Physical Exam: Gen: WD/WN, NAD, A&O x3 HEENT: Normocephalic, atraumatic, conjunctivae moist, sclerae anicteric, mucous membranes moist. Lung: Clear to Auscultation bilaterally, no wheezes/rales/rhonchi Heart: Regular rate, regular rhythm, no murmurs, rubs, or gallops Abdomen: Soft, NT, ND +BS x 4 Extremities: No edema Skin: Warm, no rash, negative turgor. Results & Data Results & Data Vital Signs (Past 12 Hours) Vital Signs Temp Pulse Resp BP Pulse Ox O2 Del Method 04/21/23 07:15 Room Air 04/21/23 07:21 36.7 C 75 16 131/73 92 Room Air
[2023-04-21] MEDS: ACETAMINOPHEN 325 MG TAB PO SCH (17:19)
[2023-04-21] MEDS: GABAPENTIN 600 MG TAB PO SCH (20:35)
[2023-04-21] MEDS: methylPREDNISolone 20 MG in SYRINGE 0 ML IV SCH (20:35)
[2023-04-21] MEDS: MELATONIN 3 MG TAB PO SCH (22:07)
[2023-04-22] MEDS: ACETAMINOPHEN 325 MG TAB PO SCH ×3 (00:40→18:22)
[2023-04-22] MEDS: HYDROmorphone INJ 0.5 MG/0.5 ML SYR IV PRN ×8 (00:40→21:48)
--- NOTE | 2023-04-22 08:16 | Surgery Progress Note ---
Date of Service April 22, 2023 Assessment & Plan (1) SBO (small bowel obstruction): Plan: Resolved (2) Abdominal pain: Plan: Patient reports feeling improved since the addition of steroids. Remains afebrile, HD stable no leukocytosis. GI was consulted and started oral steroids. Abdominal pain seems to be secondary to inflammation based on improvement of symptoms with steroids. I would recommend advancing to full liquids today to see how she tolerates this. Admission and Anticipated Discharge Date Admission Date: April 15, 2023 Subjective Patient was seen and examined this AM. She has finally noted improvement in her abdominal pain since starting steroids. She continues to tolerate clear liquids and says that she is now able to have liquids without having abdominal cramping. She continues without nausea, is passing flatus and having bowel movements. Physical Exam Constitutional: comfortable; no acute distress, not ill appearing and not diaphoretic Respiratory: normal respiratory effort; no respiratory distress, no labored breathing and does not use accessory muscles Gastrointestinal (Abdomen): Improved Results & Data Vital Signs (Past 12 Hours) Vital Signs Temp Pulse Resp BP Pulse Ox O2 Del Method 04/21/23 20:35 Room Air 04/21/23 22:55 36.7 C 84 16 155/80 H 96 Room Air PG Care Time/CCT Total # of Minutes Spent Total Time Spent with Patient: Total time spent is greater than 50% in coordination of care (as documented) at patient's floor/unit and/or counseling patient: Coding Level of Care Code 41062 SUB INP/OBS CARE 125MIN Diagnoses SBO (small bowel obstruction) K56.609 Abdominal pain R10.9
[2023-04-22] MEDS: D5W AND NSS 1,000 ML IV SCH ×2 (10:13→21:51)
[2023-04-22] MEDS: GABAPENTIN 300 MG CAP PO SCH ×2 (10:15→15:06)
[2023-04-22] MEDS: FLUoxetine HCL 20 MG CAP PO SCH (10:17)
[2023-04-22] MEDS: methylPREDNISolone 20 MG in SYRINGE 0 ML IV SCH ×3 (10:18→20:23)
[2023-04-22] MEDS: NICOTINE 14 MG/24 HR PATCH TD SCH (10:18)
[2023-04-22] MEDS: MULTIVITAMIN TAB PO SCH (10:18)
[2023-04-22] MEDS: PANTOprazole 40 MG TAB PO SCH (10:20)
[2023-04-22] MEDS: DOCUSATE SODIUM/SENNA 50/8.6MG TAB PO SCH (10:20)
[2023-04-22] MEDS: ENOXAPARIN INJ 40 MG/0.4 ML SYR SQ SCH (10:21)
[2023-04-22] MEDS: LORazepam 0.5 MG TAB PO SCH ×3 (10:45→20:26)
[2023-04-22] MEDS: AMPHETAMINE ASP/SULF/DEXTRAMPH 20 MG TAB PO SCH ×2 (10:45→15:53)
--- NOTE | 2023-04-22 13:22 | Gastroenterology Progress Note ---
Date of Service April 22, 2023 Assessment & Plan (1) SBO (small bowel obstruction): (2) Abdominal pain: (3) Crohn's disease: Plan 47 y/o male with PMHX Crohn's disease on Stelara, last colonoscopy in 06/2022 w/ remission, now admitted with suspicion of acute on chronic abd pain, SBO, that is clinically improved as she is now passing flatus, stooling, and tolerating clears. There is question of whether this is related to a Crohn's flare vs adhesions of which she has a significant amount. She does have loose stools at baseline; she's afebrile with normal WBC. C diff neg. CRP elevated. IV steroids were initiated and pt today feels improvement. We attempted to obtain MRE while she was here to evaluate her small bowel, however MRI dept informed me that they don't perform this test on inpts. On exam abd soft, nontender, nondistended today. - Try to advance diet as tolerated - Continue steroids; on DC would transition to PO prednisone - 40 mg daily x 1 week, then 30 mg daily x 1 week, then 20 mg daily x 1 week, then 15 mg daily x 1 week, then 10 mg daily x 1 week, then 5 mg daily x 1 week then stop. - Encourage OOB, ambulation - Surgery also following - Outpatient visit with in the next 3-4 weeks - GI will sign off, please call with questions Thank you for allowing us to participate in the care of this patient. Please call with any acute changes, questions or concerns. Please see addendum below with additional recommendation from my supervising physician. Admission and Anticipated Discharge Date Admission Date: April 15, 2023 Supervising Physician Co-Signing Physician Notes I have seen and examined the patient with Pricila Gordon PA-C whose note reflects our findings and plan. Less pain today. Attempted to get an MRE to further evaluate the small bowel but unable to do as an inpatient. Discussed oral steroid taper. She will follow up woth . If she tolerates diet, OK to discharge to home from Gi standpoint. Subjective Patient seen and examined, chart reviewed. Today is doing better in terms of her abd pain. Feels it's a 4/10. Having 3-4 loose nonbloody stools daily. Hungry and wants to advance her diet. No nausea, vomiting, melena, hematochezia, fever, chills. Review of Systems Review of Systems: All systems reviewed & are unremarkable except as noted in HPI & below Physical Exam Constitutional: well developed, well nourished and comfortable; no acute distress Neck: trachea midline Respiratory: normal resp effort Gastrointestinal (Abdomen): Inspection/Auscultation: abdomen not distended (m ultiple healed surgical scars, soft, nontender BS x 4 quads) Skin: no rashes, warm and dry Results & Data Vital Signs (Past 12 Hours) Vital Signs Temp Pulse Resp BP Pulse Ox O2 Del Method 04/22/23 07:18 36.7 C 78 18 146/70 H 94 Room Air
--- NOTE | 2023-04-22 16:10 | Hospitalist Progress Note ---
Date of Service April 22, 2023 Assessment & Plan (1) SBO (small bowel obstruction): Plan: Recurrent SBO SBO (likely/possibly) due to scar tissue/adhesions Crohn's disease status post surgery on immunosuppressive regimen 04/17 - Repeat KUB: Persistent partial small bowel obstruction 04/19 -Positive small BMs - Tolerating clear liquids day #2 04/22 Improved following full day of IV steroids, tolerating full liquids General surgery on board - will defer diet upgrades to them Appreciate GI recommendations, C diff negative therefore steroid taper recommended at discharge --Upon DC, continue Prednisone taper: 40mg daily x 1 week, 30mg daily x 1 week, 20mg daily x 1week, 15mg daily x 1week, 10mg daily x 1 week, 5mg daily x 1 week. Please set up f/u with Dr. Cheryl Rowley Scheduled APAP MRE was attempted by GI but study cannot be done as an in-patient. hx ADD, anxiety/mood disorder, at baseline chronic,s table Usual Adderall ongoing tobacco abuse Nicotine patch DVT prophylaxis. Lovenox subcu Dispo: will await surgery clearance prior to diet upgrade/discharge, consult PT/OT FULL CODE Admission and Anticipated Discharge Date Admission Date: April 15, 2023 Supervising Physician Co-Signing Physician Notes Attending addendum The patient was seen and examined in medical floor She has been feeling much better today Less abdominal pain and has been tolerating full liquid diet On examination Lying in bed with minimal discomfort Hemodynamically stable Abdomen-soft mildly tender in the right lower quadrant, no guarding or rigidity, bowel sound present Her labs and medications reviewed Has SBO complicated by Crohn's flare-improving Agree with assessment and plan as outlined above by MEGHNA Bellamy Dr Subjective Patient seen and examined, chart reviewed. Pain has improved today and she feels hopeful for the first time in 2 weeks. Tolerated full liquids for lunch. Having 3-4 loose bowel movements daily. No F/C, lightheadedness, CP, SOB, N/V, melena, hematochezia, dysuria. Review of Systems Review of Systems: At least ten systems reviewed and negative except as noted in the HPI. Physical Exam Physical Exam: Gen: WD/WN, NAD, lying in bed, A&Ox3 HEENT: Normocephalic, atraumatic, conjunctivae moist, sclerae anicteric, mucous membranes moist Lung: Clear to Auscultation bilaterally, no wheezes/rales/rhonchi Heart: Regular rate, regular rhythm, no murmurs, rubs, or gallops Abdomen: Soft, lowed abdomen diffusely TTP no guarding, +BS x 4 Extremities: no edema Skin: Warm, no rash Results & Data Results & Data Vital Signs (Past 12 Hours) Vital Signs Temp Pulse Pulse Resp BP BP Pulse Ox 04/22/23 15:44 36.7 C 88 18 158/77 H 94 04/22/23 07:18 36.7 C 78 18 146/70 H 94 O2 Del Method 04/22/23 15:44 Room Air 04/22/23 07:18 Room Air Diagnostic Findings Abdomen/Pelvis CT 04/15/23 00:34 Exam(s): CT ABDOMEN + PELVIS With Contrast IV Amt: 92 optiray 320 EXAM: CT Abdomen and Pelvis With Intravenous Contrast CLINICAL HISTORY: Reason for exam: eval for sbo. TECHNIQUE: Axial computed tomography images of the abdomen and pelvis with intravenous contrast. CTDI is 21.76 mGy and DLP is 1188.9 mGy-cm. Automated exposure control was utilized for the study. A dose lowering technique was utilized adhering to the principles of ALARA. CONTRAST: Patient received 92 optiray 320 of IV contrast COMPARISON: CT Abdomen Pelvis dated 12/31/22 FINDINGS: Lung bases: Mild bibasilar atelectasis. ABDOMEN: Liver: Unremarkable. No mass. Gallbladder and bile ducts: Cholelithiasis. No ductal dilation. Pancreas: Unremarkable. No mass. No ductal dilation. Spleen: Unremarkable. No splenomegaly. Adrenals: Unremarkable. No mass. Kidneys and ureters: Unremarkable. No solid mass. No hydronephrosis. Stomach and bowel: Right hemicolectomy as on the prior study. Dilated small bowel loops with air-fluid levels in the mid/left abdomen. Transition point in the anterior mid abdomen with similar appearance on the prior study. This is adjacent to area of colonic bowel sutures. Mild adjacent fat stranding. PELVIS: Appendix: See above. Bladder: Unremarkable. No mass. Reproductive: Unremarkable as visualized. ABDOMEN and PELVIS: Intraperitoneal space: Unremarkable. No free air. No significant fluid collection. Bones/joints: No acute fracture. No dislocation. Soft tissues: Unremarkable. Vasculature: Unremarkable. No abdominal aortic aneurysm. Lymph nodes: Unremarkable. No enlarged lymph nodes. IMPRESSION: 1. Findings likely represent small bowel obstruction with transition point in the anterior mid abdomen. 2. Right hemicolectomy as on the prior study. Electronically signed by: Jonathan Reeder M.D. 04/15/23 02:54 AM Gallbladder Ultrasound 04/15/23 04:06 Exam(s): US GALLBLADDER EXAM: US Abdomen Limited, Gallbladder CLINICAL HISTORY: Reason for exam: RUQ pain. TECHNIQUE: Real-time ultrasound of the right upper quadrant with image documentation. COMPARISON: CT dated 04/15/2023 FINDINGS: Liver: Mild hepatomegaly, 17.6 cm in length. Gallbladder: Multiple shadowing gallbladder stones, largest 1.8 cm. No wall thickening or pericholecystic fluid. Negative sonographic Arzola sign. Common bile duct: Common bile duct 5 mm. No stones. No dilation. Pancreas: Pancreas not visualized due to bowel gas. IMPRESSION: No acute findings in the right upper quadrant. Electronically signed by: Jonathan Reeder M.D. 04/15/23 06:03 AM KUB X-Ray 04/17/23 08:43 KUB CLINICAL HISTORY: ff up SBO COMPARISON STUDY: CT of the abdomen and pelvis April 15, 2023. FINDINGS: Several loops of mildly dilated gas-filled small bowel quadrant persist. The appearance is similar to prior CT. Although sensitivity is diminished on this supine exam, there is no evidence for free air. IMPRESSION: A few loops of mildly dilated small bowel within the right upper quadrant which favor a persistent partial small bowel obstruction ACT 112: Negative or not required by law. Electronically signed by: lEiseo Saxena M.D. 04/17/2023 9:21 AM
[2023-04-22] MEDS: GABAPENTIN 600 MG TAB PO SCH (20:23)
[2023-04-22] MEDS: MELATONIN 3 MG TAB PO SCH (21:49)
[2023-04-23] MEDS: HYDROmorphone INJ 0.5 MG/0.5 ML SYR IV PRN ×3 (00:48→07:04)
[2023-04-23] MEDS: ACETAMINOPHEN 325 MG TAB PO SCH ×3 (00:48→16:42)
[2023-04-23 07:53] LABS: Mean Corpuscular Hemoglobin 29.4 pg (25.0-34.0); Mean Corpuscular Hgb Conc 33.3 g/dL (32.0-36.0); Mean Corpuscular Volume 88.2 fL (80.0-100.0); Platelet Count 349 K/uL (130-400); RDW Coefficient of Variation 13.3 % (11.5-14.5); RDW Standard Deviation 43.5 fL (36.4-46.3); Red Blood Count 4.42 M/uL (4.20-5.40); White Blood Count 8.13 K/ul (4.8-10.8)
[2023-04-23] MEDS: AMPHETAMINE ASP/SULF/DEXTRAMPH 20 MG TAB PO SCH ×2 (08:23→12:27)
[2023-04-23 08:24] LABS: BUN Creatinine Ratio 11.5 (10-20); Calcium 8.9 mg/dl (8.6-10.3); Est GFR (Non-African American) 112.2 ml/min; Potassium 2.8 mmol/L (3.5-5.1)
[2023-04-23] MEDS: GABAPENTIN 300 MG CAP PO SCH ×2 (08:24→12:27)
[2023-04-23] MEDS: DOCUSATE SODIUM/SENNA 50/8.6MG TAB PO SCH (08:25)
[2023-04-23] MEDS: ENOXAPARIN INJ 40 MG/0.4 ML SYR SQ SCH (08:25)
[2023-04-23] MEDS: FLUoxetine HCL 20 MG CAP PO SCH (08:25)
[2023-04-23] MEDS: methylPREDNISolone 20 MG in SYRINGE 0 ML IV SCH ×2 (08:26→13:09)
[2023-04-23] MEDS: MULTIVITAMIN TAB PO SCH (08:26)
[2023-04-23] MEDS: NICOTINE 14 MG/24 HR PATCH TD SCH (08:29)
[2023-04-23] MEDS: PANTOprazole 40 MG TAB PO SCH (08:30)
[2023-04-23] MEDS: LORazepam 0.5 MG TAB PO SCH ×2 (08:32→13:08)
--- NOTE | 2023-04-23 08:32 | Surgery Progress Note ---
This case was discussed with the surgical PA, I agree with this plan. Date of Service April 23, 2023 Assessment & Plan (1) SBO (small bowel obstruction): Plan: Patient here with concern for SBO that is resolving WBC 8, Hbg 13, K 2.8 (will need repleted). Vital signs are stable Her belly pain appears to improve slowly each day She is tolerating full liquids, denies n/v, + flatus/BMs Diet has been advanced this AM by medicine (will adjust to low fiber) and see how she fairs GI following and started pt on course of steroids We will sign off as patient making improvements and diet advancing, call back if any questions/concerns Admission and Anticipated Discharge Date Admission Date: April 15, 2023 Subjective Patient doing okay. Feels her belly pain is slowly getting better each day. Passing flatus/BMs. Tolerating full liquids. Denies nausea/vomiting Physical Exam Physical Exam: awake/alert, no distress Gastrointestinal (Abdomen): Inspection/Auscultation: abdomen not distended Percussion/Palpation: + abdomen tender (mild generalized discomfort to palpation ) and abdomen soft; no guarding Results & Data Vital Signs (Past 12 Hours) Vital Signs Temp Pulse Resp BP Pulse Ox O2 Del Method 04/23/23 07:23 36.4 C L 70 16 157/79 H 92 Room Air 04/22/23 20:26 Room Air 04/22/23 20:15 36.5 C 82 16 165/89 H 94 Room Air PG Care Time/CCT Total # of Minutes Spent Total Time Spent with Patient: Total time spent is greater than 50% in coordination of care (as documented) at patient's floor/unit and/or counseling patient: Coding Level of Care Code 01680 SUB INP/OBS CARE 09/16MIN Diagnoses SBO (small bowel obstruction) K56.609
[2023-04-23] MEDS ORDERED: POTASSIUM CHLORIDE 20 MEQ/15 ML UDC PO STA (10:27)
[2023-04-23] MEDS ORDERED: HYDROmorphone INJ 0.5 MG/0.5 ML SYR IV STA (10:49)
[2023-04-23] MEDS: POTASSIUM CHLORIDE / WTR 10 MEQ/100 ML PLCT IV SCH ×2 (11:31→13:05)
--- NOTE | 2023-04-23 14:31 | Hospitalist Progress Note ---
Date of Service April 23, 2023 Assessment & Plan (1) SBO (small bowel obstruction): Plan: Recurrent SBO SBO (likely/possibly) due to scar tissue/adhesions Crohn's disease status post surgery on immunosuppressive regimen 04/17 - Repeat KUB: Persistent partial small bowel obstruction 04/19 -Positive small BMs - Tolerating clear liquids day #2 04/22 Improved following full day of IV steroids, tolerating full liquids 04/23 Pain continues to improve, back to baseline bowel movements, regular diet General surgery on board - will defer diet upgrades to them Appreciate GI recommendations, C diff negative therefore steroid taper recommended at discharge --Upon DC, continue Prednisone taper: 40mg daily x 1 week, 30mg daily x 1 week, 20mg daily x 1week, 15mg daily x 1week, 10mg daily x 1 week, 5mg daily x 1 week. Please set up f/u with Dr. Cheryl Rowley Scheduled APAP Has been utilizing IV dilaudid Q3H regularly - discontinued today, avoid narcotics as able MRE was attempted by GI but study cannot be done as an in-patient hx ADD, anxiety/mood disorder, at baseline chronic,s table Usual Adderall ongoing tobacco abuse Nicotine patch DVT prophylaxis. Lovenox subcu Dispo: will await surgery clearance prior to diet upgrade/discharge, consult PT/OT FULL CODE Admission and Anticipated Discharge Date Admission Date: April 15, 2023 Supervising Physician Co-Signing Physician Notes Attending addendum: The patient was seen and examined in medical floor She has been feeling much better and the pain seems to be controlled She has been tolerating diet Noted to have low potassium and will be supplemented and rechecked before she can be discharged today On examination No apparent distress at rest Hemodynamically stable with blood pressure on the upper side at 157/79 Abdomen-soft and mildly tender in the right lower quadrant without any guarding and no rigidity Her labs and medications reviewed SBO complicated by Crohn's flare Likely discharge this afternoon Agree with assessment and plan as outlined above by MEGHNA Bellamy Dr Subjective Patient continues to improve each day, stating lower abdominal pain is slightly better. Having 3-4 bowel movements daily that are more normal for her, nonbloody. Passing flatus/BMs. Advance to regular diet. Denies nausea/vomiting. No fever, chills, lightheadedness, chest pain, shortness of breath, dysuria. Review of Systems Review of Systems: At least ten systems reviewed and negative except as noted in the HPI. Physical Exam Physical Exam: Gen: WD/WN, NAD, lying in bed, A&Ox3 HEENT: Normocephalic, atraumatic, conjunctivae moist, sclerae anicteric, mucous membranes moist Lung: Clear to Auscultation bilaterally, no wheezes/rales/rhonchi Heart: Regular rate, regular rhythm, no murmurs, rubs, or gallops Abdomen: Soft, lowed abdomen diffusely TTP no guarding, +BS x 4 Extremities: no edema Skin: Warm, no rash Results & Data Results & Data Vital Signs (Past 12 Hours) Vital Signs Temp Pulse Resp BP Pulse Ox O2 Del Method 04/23/23 07:23 36.4 C L 70 16 157/79 H 92 Room Air Laboratory Results Short CBC 04/23/23 Range/Units 07:29 WBC 8.13 (4.8-10.8) K/ul Hgb 13.0 (12.0-16.0) g/dl Hct 39.0 (37.0-47.0) % Plt Count 349 (130-400) K/uL BMP 04/23/23 07:29 Sodium 139 Potassium 2.8 L Chloride 104 Carbon Dioxide 28 BUN 6 Creatinine 0.52 L Glucose 109 H Calcium 8.9 Diagnostic Findings Abdomen/Pelvis CT 04/15/23 00:34 Exam(s): CT ABDOMEN + PELVIS With Contrast IV Amt: 92 optiray 320 EXAM: CT Abdomen and Pelvis With Intravenous Contrast CLINICAL HISTORY: Reason for exam: eval for sbo. TECHNIQUE: Axial computed tomography images of the abdomen and pelvis with intravenous contrast. CTDI is 21.76 mGy and DLP is 1188.9 mGy-cm. Automated exposure control was utilized for the study. A dose lowering technique was utilized adhering to the principles of ALARA. CONTRAST: Patient received 92 optiray 320 of IV contrast COMPARISON: CT Abdomen Pelvis dated 12/31/22 FINDINGS: Lung bases: Mild bibasilar atelectasis. ABDOMEN: Liver: Unremarkable. No mass. Gallbladder and bile ducts: Cholelithiasis. No ductal dilation. Pancreas: Unremarkable. No mass. No ductal dilation. Spleen: Unremarkable. No splenomegaly. Adrenals: Unremarkable. No mass. Kidneys and ureters: Unremarkable. No solid mass. No hydronephrosis. Stomach and bowel: Right hemicolectomy as on the prior study. Dilated small bowel loops with air-fluid levels in the mid/left abdomen. Transition point in the anterior mid abdomen with similar appearance on the prior study. This is adjacent to area of colonic bowel sutures. Mild adjacent fat stranding. PELVIS: Appendix: See above. Bladder: Unremarkable. No mass. Reproductive: Unremarkable as visualized. ABDOMEN and PELVIS: Intraperitoneal space: Unremarkable. No free air. No significant fluid collection. Bones/joints: No acute fracture. No dislocation. Soft tissues: Unremarkable. Vasculature: Unremarkable. No abdominal aortic aneurysm. Lymph nodes: Unremarkable. No enlarged lymph nodes. IMPRESSION: 1. Findings likely represent small bowel obstruction with transition point in the anterior mid abdomen. 2. Right hemicolectomy as on the prior study. Electronically signed by: Jonathan Reeder M.D. 04/15/23 02:54 AM Gallbladder Ultrasound 04/15/23 04:06 Exam(s): US GALLBLADDER EXAM: US Abdomen Limited, Gallbladder CLINICAL HISTORY: Reason for exam: RUQ pain. TECHNIQUE: Real-time ultrasound of the right upper quadrant with image documentation. COMPARISON: CT dated 04/15/2023 FINDINGS: Liver: Mild hepatomegaly, 17.6 cm in length. Gallbladder: Multiple shadowing gallbladder stones, largest 1.8 cm. No wall thickening or pericholecystic fluid. Negative sonographic Arzola sign. Common bile duct: Common bile duct 5 mm. No stones. No dilation. Pancreas: Pancreas not visualized due to bowel gas. IMPRESSION: No acute findings in the right upper quadrant. Electronically signed by: Jonathan Reeder M.D. 04/15/23 06:03 AM KUB X-Ray 04/17/23 08:43 KUB CLINICAL HISTORY: ff up SBO COMPARISON STUDY: CT of the abdomen and pelvis April 15, 2023. FINDINGS: Several loops of mildly dilated gas-filled small bowel quadrant persist. The appearance is similar to prior CT. Although sensitivity is diminished on this supine exam, there is no evidence for free air. IMPRESSION: A few loops of mildly dilated small bowel within the right upper quadrant which favor a persistent partial small bowel obstruction ACT 112: Negative or not required by law. Electronically signed by: Eliseo Saxena M.D. 04/17/2023 9:21 AM
[2023-04-23 16:02] LABS: BUN Creatinine Ratio 11.7 (10-20); Calcium 9.5 mg/dl (8.6-10.3); Creatinine Clr Calc Pharmacy 114.4 ml/min; Potassium 3.7 mmol/L (3.5-5.1)
--- NOTE | 2023-04-23 17:10 | Discharge Summary ---
Discharge Summary Date of Service April 23, 2023 Notes For Next Care Provider SOB now resolved, crohn's flare on prednisone taper with GI followup Medication Changes From Visit pred taper, KCl supplemetnation Admission HPI Per Admitting Provider History obtained from patient and records. Medical history significant for Crohn's disease status post surgery on immunosuppressive regimen, ADD, anxiety/mood disorder RLS, cholelithiasis, ongoing tobacco abuse. Last confinement December 2022 for acute cholecystitis and SBO. Unsuccessful attempt at laparoscopic surgery due to bowel adhesions. HIDA scan later found to be negative. Patient discharged on antibiotic course. Four days history of achy right abdominal pain with nausea, bilious emesis. No fever, no chills. No chest pain, no SOB. Some nausea without emesis. Last BM last night was not a lot as per patient. Medical Historyas above Surgical History : Cystoscopy, laparoscopic colectomy with anastomosis, sinus surgery, rhinoplasty, tonsillectomy Family History : IBD, DM, esophageal cancer, heart disease, TIA Personal/Social history : 1/2 pack daily, occasional EtOH intake, currently unemployed Admission Exam Per Admitting Provider GENERAL: Comfortable, slightly anxious, flat affect, no respiratory distress SKIN: Normal color, warm HEENT: Bespectacled, pink palpebral conjunctivae, no ptosis, dry buccal mucosa NECK : Supple, no tenderness CHEST : CTA, no tenderness HEART : RRR, no obvious murmurs ABDOMEN: Some distention, RUQ tenderness EXTREMITIES : No LE swelling/tenderness, no other conspicuous deformities noted NEUROLOGIC : Coherent, no facial asymmetry, no other gross focality Principal Dx & Hospital Course #1 = Principal Diagnosis (1) SBO (small bowel obstruction): Recurrent SBO SBO (likely/possibly) due to scar tissue/adhesions Crohn's disease status post surgery on immunosuppressive regimen SBO resolved, having baseline bowel movements, general surgery advanced to low fiber diet today and tolerating without issue Per GI recommendations, C diff negative therefore steroid taper recommended at discharge Prednisone taper: 40mg daily x 1 week, 30mg daily x 1 week, 20mg daily x 1week, 15mg daily x 1week, 10mg daily x 1 week, 5mg daily x 1 week. Please set up f/u with Dr. Cheryl Rowley Follow up with Dr. Rowley in GI clinic Hypokalemia Replaced Continue KCl supplementation with follow up BMP at PCP Hx ADD, anxiety/mood disorder, at baseline chronic,s table Usual Adderall Ongoing tobacco abuse Nicotine patch Discharge Exam Gen: WD/WN, NAD, lying in bed, A&Ox3 HEENT: Normocephalic, atraumatic, conjunctivae moist, sclerae anicteric, mucous membranes moist Lung: Clear to Auscultation bilaterally, no wheezes/rales/rhonchi Heart: Regular rate, regular rhythm, no murmurs, rubs, or gallops Abdomen: Soft, lowed abdomen diffusely TTP no guarding, +BS x 4 Extremities: no edema Skin: Warm, no rash Updated Medication List Medication Instructions Recorded Confirmed Type calcium carbonate 500 mg-vitamin 1 tab PO HS 04/29/22 04/15/23 History D3 5 mcg (200 unit) tablet (Calcium 500 + D) fluoxetine 40 mg capsule 80 mg PO DAILY 04/29/22 04/15/23 History gabapentin 300 mg capsule 300 mg PO BID 04/29/22 04/15/23 History gabapentin 600 mg tablet 600 mg PO HS 04/29/22 04/15/23 History lorazepam 0.5 mg tablet 0.5 mg PO TID 04/29/22 04/15/23 History melatonin 5 mg tablet 5 mg PO HS 04/29/22 04/15/23 History omega-3 fatty acids 1,000 mg 1,000 mg PO QPM 04/29/22 04/15/23 History capsule pantoprazole 40 mg tablet,delayed 40 mg PO DAILY 04/29/22 04/15/23 History release ustekinumab 90 mg/mL subcutaneous 90 mg subcut .[id number] 04/29/22 04/15/23 History syringe (Stelara) diphenoxylate-atropine 2.5 1 tab PO DAILY PRN Diarrhea 12/31/22 04/15/23 History mg-0.025 mg tablet (Lomotil) multivitamin 1 tab PO DAILY 12/31/22 04/15/23 History sodium chloride 0.65 % nasal spray 2 spray intranasal DIRECTED PRN 12/31/22 04/15/23 History aerosol (Saline Nasal) NASAL DRYNESS diclofenac sodium 1 % topical gel 4 g topical TID PRN Pain 04/15/23 04/15/23 History potassium chloride 20 mEq 20 meq PO DAILY #30 tabs 04/23/23 Rx tablet,extended release prednisone 10 mg tablet 10 mg PO DIRECTED #84 tabs 04/23/23 Rx Hospital Stay Data Consultations 04/15/23 02:56 ED Decision to Admit Stat 04/15/23 03:06 Consult General Surgery Routine 04/16/23 17:41 Consult Gastroenterology Routine Diagnostic Imagining Performed 04/15/23 00:34 CT Abd and Pelvis [CT abd pelvis IV con only] Stat 04/15/23 04:06 US gallbladder Stat Pending Results Patient Have Any Pending Studies at Discharge: No Discharge Instructions Given to Patient (Per Discharging Provider) MEDICATION CHANGES: Steroid taper at discharge: 40mg daily x 1 week, 30mg daily x 1 week, 20mg daily x 1week, 15mg daily x 1week, 10mg daily x 1 week, 5mg daily x 1 week Continue potassium supplementation 20meq daily. SUMMARY OF TEST RESULTS: You were admitted with recurrent small bowel obstruction in setting on Crohn's that has resolved. General surgery advanced diet to low fiber which was tolerated without issue. Evaluated by GI with IV steroids- discharging on taper: 40mg daily x 1 week, 30mg daily x 1 week, 20mg daily x 1week, 15mg daily x 1week, 10mg daily x 1 week, 5mg daily x 1 week Follow up scheduled by GI with Dr. Cheryl Rowley MRE was attempted by GI but study cannot be done as an in-patient RECOMMENDATIONS FOR FOLLOW-UP: Follow up with PCP and GI as scheduled. Complete steroid course as directed above. Follow up BMP with PCP to monitor K. OTHER INSTRUCTIONS: Seek medical attention if you have: * temperature above 101 * chest pain or trouble breathing * abdominal pain, nausea, vomiting * diarrhea, dark stools or bloody stools * any unanswered questions or concerns Call 911 if symptoms are severe. Please take good care of yourself. Call if you have any questions or problems. You can reach a [facility] hospitalist on duty at [facility] 24 hours a day by calling [phone]. Mirlande Rosales PA-C [facility] Hospitalist Total Time Total Time Spent Total Time Spent (In Minutes): 45 Supervising Physician Co-Signing Physician Notes Attending addendum: The patient was seen and examined in medical floor She has been feeling much better and the pain seems to be controlled She has been tolerating diet Noted to have low potassium and will be supplemented and rechecked before she can be discharged today On examination No apparent distress at rest Hemodynamically stable with blood pressure on the upper side at 157/79 Abdomen-soft and mildly tender in the right lower quadrant without any guarding and no rigidity Her labs and medications reviewed SBO complicated by Crohn's flare Likely discharge this afternoon Agree with assessment and plan as outlined above by MEGHNA Bellamy Dr
== END 2023-04-23 18:47 | disposition home or self-care (01) | DRG 389 ==
LOC: ED 23:41 → SUATTDRO 04-15 04:38 → EDINP 04-15 04:38 → 3N 04-15 18:37

== ENCOUNTER 2023-11-05 02:43 | Inpatient (IN) ==
--- NOTE | 2023-11-05 03:11 | Emergency Department Note ---
Impression & Plan SBO (small bowel obstruction) Admit to the [facility] ED Provider Note NAME: BREEZY SAUCEDA AGE: 48 SEX: Female INFORMANT: Patient ED PROVIDER(S): Yessenia Cardenas DO CHIEF COMPLAINT: Right-sided abdominal pain and nausea PLAN: Disposition: Admit to the [facility] MEDICAL DECISION MAKING: This is a 48-year-old female patient with a history of previous small bowel obstructions who presents to the emergency department with significant right- sided abdominal pain and nausea starting approximately 3 hours ago. The patient describes having eaten some broccoli that was not completely cooked earlier today which may have contributed to this. Laboratory studies reveal no leukocytosis or anemia. Renal function was normal. Glucose was 117. CT scan of the abdomen/pelvis confirmed a small bowel obstruction. Patient was medicated with multiple doses of IV Dilaudid for pain and IV Zofran for nausea. She was bolused with IV normal saline solution. I discussed the case with the [facility] and they will evaluate for further inpatient care Care/management discussed with: manager farm, surgical PA, [facility] Triage Nursing notes: Reviewed and agree with them. Vital Signs: reviewed and r unremarkable Chronic Medical/Social Conditions affecting care: Crohn's and previous bowel obstructions Prior/ Outside/ External records reviewed: Reviewed a previous admission from March 2023 for small bowel obstruction Differential Diagnosis: Recurrent small bowel obstruction, perforated viscus, colitis, exacerbation of Crohn's Diagnostics, independently interpreted by me: Cardiac Monitoring: Normal sinus rhythm at 74 Imaging studies: CT scan of the abdomen/pelvis: As per stat rad HPI: 48 year old Female arrives for evaluation of right-sided abdominal pain. Patient developed worsening right-sided abdominal pain and nausea 3 hours ago. She has a history of bowel obstructions and believes she may have another one. She did eat some broccoli for lunch today which was not completely cooked and may have contributed to this. PAST MEDICAL HISTORY: See Below, PAST SURGICAL HISTORY: See Below, SOCIAL HISTORY: See Below, HOME MEDICATIONS: See list ALLERGIES: None VITALS: See Below PHYSICAL EXAMINATION: HEENT: Head - normocephalic and atraumatic Pupils are equal, round, and reactive to light. Extraocular eye muscles are intact, and sclera are anicteric. Nose - moist nasal mucosa without discharge. Mouth - moist buccal mucosa. Oropharynx is nonerythematous and there is no tonsillar exudate or edema noted. Neck: Supple; no JVD, nuchal rigidity, cervical lymphadenopathy, or auscultated bruits. Heart: Regular rate and rhythm. There is a normal S1 and S2 with no murmurs, clicks, or gallops appreciated. Lungs: Clear to auscultation bilaterally with no wheezes, rales, or rhonchi. Abdomen: Soft, moderate tenderness to palpation in the right upper quadrant and right mid quadrant of the abdomen. The rest of the abdomen is nondistended, with hypoactive bowel sounds. There are no palpable pulsatile masses or hepatosplenomegaly. There is no guarding, rigidity, or rebound noted. Extremities: No evidence of cyanosis, clubbing, or edema. There are easily palpable peripheral pulses. Skin: warm and dry with good turgor and no rashes. Emergency department treatment: clinical research monitor, IV normal saline bolus, IV Zofran, IV Dilaudid x 3 Emergency department course: The patient was evaluated in room B-7. A complete history and physical was performed. Previous electronic medical records were reviewed. An IV lock was initiated and labs were drawn as above. Patient was bolused with a liter of saline. She was given a dose of IV Zofran and IV Dilaudid. She went for a CT scan of the abdomen/pelvis. She required additional doses of IV Dilaudid for pain management. I reviewed the results of the CT as well as laboratory studies with the patient. I discussed the case with the [facility] and they will evaluate for further inpatient care. Past Med/Surg History Medical History Abnormal CT scan, chest Cholelithiasis Chronic maxillary sinusitis Crohn's disease Depression with anxiety Encounter for pre-operative examination History of Clostridioides difficile colitis History of deviated nasal septum History of erythema nodosum History of uveitis Prolonged QT interval Tobacco abuse Surgical History History of colectomy History of colonoscopy Last 07/2019 History of rhinoplasty Multiple nasal surgeries x3 History of surgery (01/04/23) Attempted Laparoscopy, Exploratory Laparotomy, Lysis of Adhesions(Not Applicable) - Alexx Garrett MD, FACS Family History Father Heart disease TIA (transient ischemic attack) Mother Heart disease FH: diverticulitis Sister Crohn's disease Diabetes Social History Smoking Status: Current every day smoker Tobacco Type: Cigarettes Cigarettes Per Day: 1/2 pack per day; Second Hand Exposure: No; Do You Dip or Chew Tobacco: No; Hx Alcohol Use: Yes Alcohol type: wine and hard liquor Alcohol type Comment: Once a month Hx Substance Use: No Preferred Language: Estonian Communication Ability: Effective 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: No Beliefs That Will Affect Care: None marital status: Single Current Living Situation: Other Current Living Situation Comment: ex boyfriend Feels Safe at Home: Yes Assistive Devices: None Allergies Allergies Allergy/AdvReac Type Severity Reaction Status Date / Time No Known Allergies Allergy Verified 01/13/23 09:36 Home Meds Home Medications Medication Instructions Recorded Confirmed calcium carbonate 500 mg-vitamin 1 tab PO HS 04/29/22 04/15/23 D3 5 mcg (200 unit) tablet (Calcium 500 + D) fluoxetine 40 mg capsule 80 mg PO DAILY 04/29/22 04/15/23 gabapentin 300 mg capsule 300 mg PO BID 04/29/22 04/15/23 gabapentin 600 mg tablet 600 mg PO HS 04/29/22 04/15/23 lorazepam 0.5 mg tablet 0.5 mg PO TID 04/29/22 04/15/23 melatonin 5 mg tablet 5 mg PO HS 04/29/22 04/15/23 omega-3 fatty acids 1,000 mg 1,000 mg PO QPM 04/29/22 04/15/23 capsule pantoprazole 40 mg tablet,delayed 40 mg PO DAILY 04/29/22 04/15/23 release ustekinumab 90 mg/mL subcutaneous 90 mg subcut .[id number] 04/29/22 04/15/23 syringe (Stelara) diphenoxylate-atropine 2.5 1 tab PO DAILY PRN Diarrhea 12/31/22 04/15/23 mg-0.025 mg tablet (Lomotil) multivitamin 1 tab PO DAILY 12/31/22 04/15/23 sodium chloride 0.65 % nasal spray 2 spray intranasal DIRECTED PRN 12/31/22 04/15/23 aerosol (Saline Nasal) NASAL DRYNESS diclofenac sodium 1 % topical gel 4 g topical TID PRN Pain 04/15/23 04/15/23 Previous Rx's Medication Instructions Recorded potassium chloride 20 mEq 20 meq PO DAILY #30 tabs 04/23/23 tablet,extended release prednisone 10 mg tablet 10 mg PO DIRECTED #84 tabs 04/23/23 Results & Data (ED) Vital Signs Vital Signs - 24 hr 11/05/23 02:47 11/05/23 03:04 11/05/23 03:30 Temperature 36.0 C L Temperature Source Temporal Artery Scan Pulse Rate 96 H 88 Pulse Rate from SpO2 Sensor 88 Respiratory Rate 16 17 Respiratory Effort / Characteristics Non-Labored Spontaneous Respiratory Depth Normal Respiratory Pattern Regular Blood Pressure 125/84 124/75 Blood Pressure Mean 97 91 Pulse Oximetry 96 98 93 Oxygen Delivery Method Room Air Room Air Sepsis Recent Fever Within 48 Hours No Sepsis New/Unexplained Change in Mental Status No Sepsis Action Taken by Nursing No Action Required 11/05/23 03:38 11/05/23 04:00 11/05/23 04:44 Temperature Temperature Source Pulse Rate 87 89 76 Pulse Rate from SpO2 Sensor 89 76 Respiratory Rate 17 14 Respiratory Effort / Characteristics Respiratory Depth Respiratory Pattern Blood Pressure 114/66 128/72 Blood Pressure Mean 82 90 Pulse Oximetry 93 93 Oxygen Delivery Method Sepsis Recent Fever Within 48 Hours Sepsis New/Unexplained Change in Mental Status Sepsis Action Taken by Nursing 11/05/23 05:00 11/05/23 05:30 Temperature Temperature Source Pulse Rate 77 73 Pulse Rate from SpO2 Sensor 76 73 Respiratory Rate 16 17 Respiratory Effort / Characteristics Respiratory Depth Respiratory Pattern Blood Pressure 120/74 113/75 Blood Pressure Mean 89 87 Pulse Oximetry 91 90 Oxygen Delivery Method Sepsis Recent Fever Within 48 Hours Sepsis New/Unexplained Change in Mental Status Sepsis Action Taken by Nursing Laboratory Data 11/05/23 03:05 11/05/23 03:05 Lab Results 11/05/23 Range/Units 03:05 WBC 9.25 (4.8-10.8) K/ul RBC 4.42 (4.20-5.40) M/uL Hgb 13.2 (12.0-16.0) g/dl Hct 39.3 (37.0-47.0) % MCV 88.9 (80.0-100.0) fL MCH 29.9 (25.0-34.0) pg MCHC 33.6 (32.0-36.0) g/dL RDW Std Deviation 46.6 H (36.4-46.3) fL RDW Coeff of Samia 14.4 (11.5-14.5) % Plt Count 425 H (130-400) K/uL MPV 8.9 L (9.4-12.4) fL Immature Gran % (Auto) 0.4 % Neut % (Auto) 63.6 % Lymph % (Auto) 25.7 % [place] % (Auto) 7.5 % Eos % (Auto) 2.2 % Baso % (Auto) 0.6 % Neut # (Auto) 5.88 (1.40-6.50) K/uL Lymph # (Auto) 2.38 (1.20-3.40) K/uL [place] # (Auto) 0.69 H (0.11-0.59) K/uL Eos # (Auto) 0.20 (0.00-0.50) K/uL Baso # (Auto) 0.06 (0.00-0.20) K/uL Immature Gran # (Auto) 0.04 (0.01-0.20) K/uL Sodium 140 (136-145) mmol/L Potassium 3.3 L (3.5-5.1) mmol/L Chloride 104 (98-107) mmol/L Carbon Dioxide 27 (21-32) mmol/L Anion Gap 9 (3-11) BUN 14 (6-23) mg/dl Creatinine 0.82 (0.6-1.2) mg/dl Est Cr Clr Drug Dosing 82.8 ml/min Est GFR ( Amer) 96.7 ml/min Est GFR (Non-Af Amer) 83.4 ml/min BUN/Creatinine Ratio 17.1 (10-20) Glucose 117 H (70-99(Fasting)) mg/dl Calcium 9.0 (8.6-10.3) mg/dl Total Bilirubin 0.3 (0.2-1.0) mg/dl AST 18 (13-39) U/L ALT 15 (7-52) U/L Alkaline Phosphatase 71 (34-104) U/L Total Protein 7.9 (6.0-8.3) gm/dl Albumin 4.3 (3.4-5.0) gm/dl Globulin 3.6 (2.5-4.0) gm/dl Albumin/Globulin Ratio 1.2 (0.9-2) Lipase 23 (11-82) U/L Administered Medications Hydromorphone HCl (Hydromorphone Inj 0.5 Mg/0.5 Ml Syr) 0.5 mg IV NOW STA Stop: 11/05/23 05:59 Last Admin: 11/05/23 06:03 Dose: 0.5 mg Documented By: CONOR Discontinued Medications Hydromorphone HCl (Hydromorphone Inj 0.5 Mg/0.5 Ml Syr) 0.5 mg IV NOW STA Stop: 11/05/23 03:09 Last Admin: 11/05/23 03:13 Dose: 0.5 mg Documented By: GERARD Hydromorphone HCl (Hydromorphone Inj 0.5 Mg/0.5 Ml Syr) 0.5 mg IV NOW STA Stop: 11/05/23 04:15 Last Admin: 11/05/23 04:17 Dose: 0.5 mg Documented By: CONOR Sodium Chloride (Nss) 1,000 mls @ 999 mls/hr IV .Q1H1M ONE Stop: 11/05/23 04:08 Last Admin: 11/05/23 03:13 Dose: 999 mls/hr Documented By: GERARD Ioversol (Optiray 320 100ml) 100 ml IV ONCE ONE Stop: 11/05/23 04:33 Last Admin: 11/05/23 04:32 Dose: 90 ml Documented By: MARIYA Ondansetron HCl (Ondansetron Inj 2 Mg/Ml 2 Ml Vial) 4 mg IV NOW STA Stop: 11/05/23 03:09 Last Admin: 11/05/23 03:13 Dose: 4 mg Documented By: GERARD Imaging Data Radiologist's Impression: Abdomen/Pelvis CT 11/05/23 03:08 Exam(s): CT ABDOMEN + PELVIS With Contrast IV Amt: 90 ml optiray 320 EXAM: CT Abdomen and Pelvis With Intravenous Contrast CLINICAL HISTORY: Reason for exam: eval for sbo. TECHNIQUE: Axial computed tomography images of the abdomen and pelvis with intravenous contrast. CTDI is 2 6 18.55 mGy and DLP is 1007.37 mGy-cm. Automated exposure control was utilized for the study. A dose lowering technique was utilized adhering to the principles of ALARA. CONTRAST: Patient received 90 ml optiray 320 of IV contrast COMPARISON: No relevant prior studies available. FINDINGS: ABDOMEN: Liver: Unremarkable. No mass. Gallbladder and bile ducts: Gallstones. No gallbladder wall thickening. No ductal dilation. Pancreas: Unremarkable. No mass. No ductal dilation. Spleen: Unremarkable. No splenomegaly. Adrenals: Unremarkable. No mass. Kidneys and ureters: Unremarkable. No solid mass. No hydronephrosis. Stomach and bowel: There has been a previous right hemicolectomy with ileocolic anastomosis. There is abnormally dilated small bowel with loops measuring over 3.5 cm in diameter. This is consistent with small bowel obstruction. The point of obstruction is in the anterior abdomen near the midline. This appears to be at or very near the ileocolic anastomosis. PELVIS: Appendix: Absent. Bladder: Unremarkable. No mass. ABDOMEN and PELVIS: Intraperitoneal space: Unremarkable. No free air. No significant fluid collection. Bones/joints: No acute findings. Soft tissues: Unremarkable. Vasculature: Unremarkable. No abdominal aortic aneurysm. Lymph nodes: Unremarkable. No enlarged lymph nodes. IMPRESSION: Small bowel obstruction. Electronically signed by: Alexx Tran MD 11/05/23 05:50 AM Discharge Plan Visit Data Chief Complaint: Abdominal Pain Stated Complaint: ABD PAIN ED Provider: Yessenia Cardenas Discharge Problem: SBO (small bowel obstruction) Forms Stand Alone Forms: [facility] Prescriptions Prescriptions: No Action multivitamin Tablet 1 tab PO DAILY diphenoxylate-atropine [Lomotil] 2.5-0.025 mg Tablet 1 tab PO DAILY PRN (Reason: Diarrhea) Saline Nasal 0.65 % Aerosol,[place] 2 spray INTRANASAL DIRECTED PRN (Reason: NASAL DRYNESS) fluoxetine 40 mg capsule 80 mg PO DAILY gabapentin 600 mg Tablet 600 mg PO HS omega-3 fatty acids 1,000 mg Capsule 1,000 mg PO QPM lorazepam 0.5 mg tablet 0.5 mg PO TID pantoprazole 40 mg tablet,delayed release (DR/EC) 40 mg PO DAILY gabapentin 300 mg capsule 300 mg PO BID Rx Instructions: Take in am & noon calcium carbonate-vitamin D3 [Calcium 500 + D] 500 mg-5 mcg (200 unit) Tablet 1 tab PO HS melatonin 5 mg Tablet 5 mg PO HS Stelara 90 mg/mL Syringe 90 mg SUBCUT .[id number] diclofenac sodium 1 % gel 4 g TOPICAL TID PRN (Reason: Pain) prednisone 10 mg tablet 10 mg PO DIRECTED Qty: 84 0RF Rx Instructions: 40mg daily x 1 week (4 tabs), 30mg daily x 1 week (3 tabs), 20mg daily x 1week (2 tabs), 15mg daily x 1week (1.5 tabs), 10mg daily x 1 week (1 tab), 5mg daily x 1 week (0.5 tab) potassium chloride 20 mEq tablet extended release 20 meq PO DAILY Qty: 30 0RF Referrals Referrals: Giovany Correa DO [Primary Care Provider] -
[2023-11-05] MEDS: SODIUM CHLORIDE 0.9% 1,000 ML IV ONE (03:13)
[2023-11-05] MEDS: HYDROmorphone INJ 0.5 MG/0.5 ML SYR IV STA ×4 (03:13→06:54)
[2023-11-05] MEDS: ONDANSETRON INJ 2 MG/ML 2 ML VIAL IV STA (03:13)
[2023-11-05 03:45] LABS: Basophils # (auto) 0.06 K/uL (0.00-0.20); Basophils % (auto) 0.6 %; Eosinophils % (auto) 2.2 %; Hematocrit (blood only) 39.3 % (37.0-47.0); Hemoglobin 13.2 g/dl (12.0-16.0); Immature Granulocytes # (auto) 0.04 K/uL (0.01-0.20); Immature Granulocytes % (auto) 0.4 %; Lymphocytes # (auto) 2.38 K/uL (1.20-3.40); Lymphocytes % (auto) 25.7 %; Mean Corpuscular Hemoglobin 29.9 pg (25.0-34.0); Mean Corpuscular Hgb Conc 33.6 g/dL (32.0-36.0); Mean Corpuscular Volume 88.9 fL (80.0-100.0); Mean Platelet Volume 8.9 fL (9.4-12.4); Monocytes # (auto) 0.69 K/uL (0.11-0.59); Monocytes % (auto) 7.5 %; Neutrophils # (auto) 5.88 K/uL (1.40-6.50); Neutrophils % (auto) 63.6 %; Platelet Count 425 K/uL (130-400); RDW Coefficient of Variation 14.4 % (11.5-14.5); RDW Standard Deviation 46.6 fL (36.4-46.3); Red Blood Count 4.42 M/uL (4.20-5.40); White Blood Count 9.25 K/ul (4.8-10.8)
[2023-11-05 03:57] LABS: Albumin Globulin Ratio 1.2 (0.9-2); Albumin Level 4.3 gm/dl (3.4-5.0); BUN Creatinine Ratio 17.1 (10-20); Bilirubin,Total 0.3 mg/dl (0.2-1.0); Creatinine Clr Calc Pharmacy 82.8 ml/min; Est GFR (African American) 96.7 ml/min; Est GFR (Non-African American) 83.4 ml/min; Globulin 3.6 gm/dl (2.5-4.0); Potassium 3.3 mmol/L (3.5-5.1); Total Protein 7.9 gm/dl (6.0-8.3)
[2023-11-05] MEDS: OPTIRAY 320 100ml IV ONE (04:32)
--- NOTE | 2023-11-05 05:51 | CT Scan Report ---
Exam(s): CT ABDOMEN + PELVIS With Contrast IV Amt: 90 ml optiray 320 EXAM: CT Abdomen and Pelvis With Intravenous Contrast CLINICAL HISTORY: Reason for exam: eval for sbo. TECHNIQUE: Axial computed tomography images of the abdomen and pelvis with intravenous contrast. CTDI is 2 6 18.55 mGy and DLP is 1007.37 mGy-cm. Automated exposure control was utilized for the study. A dose lowering technique was utilized adhering to the principles of ALARA. CONTRAST: Patient received 90 ml optiray 320 of IV contrast COMPARISON: No relevant prior studies available. FINDINGS: ABDOMEN: Liver: Unremarkable. No mass. Gallbladder and bile ducts: Gallstones. No gallbladder wall thickening. No ductal dilation. Pancreas: Unremarkable. No mass. No ductal dilation. Spleen: Unremarkable. No splenomegaly. Adrenals: Unremarkable. No mass. Kidneys and ureters: Unremarkable. No solid mass. No hydronephrosis. Stomach and bowel: There has been a previous right hemicolectomy with ileocolic anastomosis. There is abnormally dilated small bowel with loops measuring over 3.5 cm in diameter. This is consistent with small bowel obstruction. The point of obstruction is in the anterior abdomen near the midline. This appears to be at or very near the ileocolic anastomosis. PELVIS: Appendix: Absent. Bladder: Unremarkable. No mass. ABDOMEN and PELVIS: Intraperitoneal space: Unremarkable. No free air. No significant fluid collection. Bones/joints: No acute findings. Soft tissues: Unremarkable. Vasculature: Unremarkable. No abdominal aortic aneurysm. Lymph nodes: Unremarkable. No enlarged lymph nodes. IMPRESSION: Small bowel obstruction. Electronically signed by: Alexx Tran MD 11/05/23 05:50 AM
--- NOTE | 2023-11-05 06:35 | Surgery Consultation ---
Date of Consultation November 05, 2023 Assessment & Plan (1) SBO (small bowel obstruction): The patient is being admitted on the hospitalist service. From surgical perspective we recommend the following: Implement n.p.o. status continue IV fluid for hydration I discussed the use of an NG tube with this patient. The patient notes that she has not had any emesis and for the present time wants to try to treat this condition without this modality. I did discuss with her that if she has any worsening of her clinical exam or develops any nausea or vomiting this modality may need to be considered. Is unclear if the patient's small bowel obstruction is related to her underlying Crohn's disease so it may be beneficial to enlist the help of gastroenterology as during the patient's most recent hospitalization at [facility] she was placed on intravenous steroids with noted clinical improvement Follow serial labs and serial physical exams Additional recommendations to be forthcoming based on her clinical course as it unfolds Supervising Physician Co-Signing Physician Notes I personally saw and evaluated the patient with Pedro Draper PA-C and agree with the assessment and plan 48 yo female with history of Crohn's, multiple SBO and abdominal surgeries Her CT images and results were personally viewed and interpreted by myself She has been admitted to medicine, agree with GI consult for co-management No plans for any surgical intervention, she is passing flatus and labs are are normal, no tachycardia If she were to require surgery, consideration for transfer to [facility] in [place] as she has had multiple surgeries and is established there History of Present Illness Reason for Consultation: Small bowel obstruction History of Present Illness This is a 48-year-old female who presented the emergency department secondary to abdominal pain. The patient has an underlying history of Crohn's disease and she follows locally with Dr. Rowley. The patient says that she currently uses an injectable bowel medication by the name of Liane for her Crohn's disease and she has been compliant with this medication. The patient notes that she has had multiple admissions to the hospital secondary to small bowel obstruction. The most recent episode was in March 2023 where she was admitted to [facility] and was successfully treated for small bowel obstruction in a conservative manner. It is also noteworthy to mention that the patient did have right upper quadrant pain following one of her small bowel obstruction admissions and a cholecystectomy was attempted (this was in December 2022) this procedure was aborted due to multiple adhesions preventing successful operation. The patient did undergo HIDA scan following this attempt and this was not indicative of cholecystitis at that time. At that time it was felt that if patient had further episodes concerning for cholecystitis less invasive means of treating this condition should be attempted. The patient has had multiple abdominal surgeries with varying types of small bowel and bowel resection at different facilities. She notes that her most recent surgery secondary to her Crohn's disease was about 2 years ago and was performed at [facility] in [facility]. The patient presented to the hospital today secondary to abdominal pain. She notes that she has been having on and off abdominal pain of varying intensity for approximately 1 week. She notes that her pain did appear to get somewhat better but over the past 24 to 40 hours has started to get worse. She notes that the pain is generalized in her central abdomen without radiation. She does not report any modifying factors. She is unsure when her last bowel movement was. She notes that she did pass a small amount of flatus earlier today. She denies any fevers, shakes, or chills. She has not had any emesis. Since arrival to the emergency department she has had labs and imaging which I independently reviewed. A CT scan of the abdomen and pelvis that showed the patient had a small bowel obstruction. The interpreting radiologist felt that there is some dilated small bowel measuring up to 3.5 cm with a point of obstruction in the anterior abdominal midline near an ileocolic anastomosis. No free air was noted on this study. In addition, the patient was noted to have gallstones without evidence of gallbladder wall thickening. Labs include a CBC were white blood cell count, hemoglobin, and hematocrit were within the normal range. Platelet count was 4 and 25,000. Chemistry profile showed sodium was 140. Her BUN and creatinine were within the normal range. Her potassium was slightly low at 3.3. There is no elevation of her LFTs or lipase. At the time of my interview the patient had some continued abdominal pain but she was in no distress. Allergies Allergy/AdvReac Type Severity Reaction Status Date / Time No Known Allergies Allergy Verified 01/13/23 09:36 Home Medications Medication Instructions Recorded Confirmed Type bupropion HCl 75 mg tablet 150 mg PO BID 11/05/23 11/05/23 History dextroamphetamine-amphetamine 5 mg 5 mg PO BID 11/05/23 11/05/23 History tablet diclofenac sodium 1 % topical gel 4 g topical TID PRN Pain 11/05/23 11/05/23 History diphenoxylate-atropine 2.5 1 tab PO DAILY PRN Diarrhea 11/05/23 11/05/23 History mg-0.025 mg tablet fluoxetine 40 mg capsule 80 mg PO DAILY 11/05/23 11/05/23 History gabapentin 300 mg capsule 300 mg PO UD 11/05/23 11/05/23 History gabapentin 600 mg tablet 600 mg PO HS 11/05/23 11/05/23 History lorazepam 0.5 mg tablet 0.5 mg PO TID PRN Anxiety 11/05/23 11/05/23 History oxycodone 5 mg tablet 5 mg PO Q6H PRN Outbreak 11/05/23 11/05/23 History pantoprazole 40 mg tablet,delayed 40 mg PO DAILY 11/05/23 11/05/23 History release potassium chloride 10 mEq 10 meq PO DAILY 11/05/23 11/05/23 History capsule,extended release ustekinumab 90 mg/mL subcutaneous 1 mg subcut UD 11/05/23 11/05/23 History syringe (Stelara) Patient History Medical History Encounter for pre-operative examination Prolonged QT interval Cholelithiasis Abnormal CT scan, chest History of Clostridioides difficile colitis History of uveitis History of erythema nodosum History of deviated nasal septum Chronic maxillary sinusitis Tobacco abuse Depression with anxiety Crohn's disease Surgical History History of surgery (01/04/23) Attempted Laparoscopy, Exploratory Laparotomy, Lysis of Adhesions(Not Applicable) - Alexx Garrett MD, FACS History of colonoscopy Last 07/2019 History of rhinoplasty Multiple nasal surgeries x3 History of colectomy Family History Father Heart disease TIA (transient ischemic attack) Mother Heart disease FH: diverticulitis Sister Crohn's disease Diabetes Social History Smoking Status: Current every day smoker Tobacco Type: Cigarettes Cigarettes Per Day: 1/2 pack per day; Second Hand Exposure: No; Do You Dip or Chew Tobacco: No; Hx Alcohol Use: Yes Alcohol type: wine and hard liquor Alcohol type Comment: Once a month Hx Substance Use: No Preferred Language: Croatian Communication Ability: Effective [employer] Officer Required: No Beliefs That Will Affect Care: None marital status: Single Current Living Situation: Other Current Living Situation Comment: ex boyfriend Feels Safe at Home: Yes Assistive Devices: None Review of Systems Constitutional: no fever and no chills Ear, Nose, Mouth, Throat: no ear pain Respiratory: no cough and no dyspnea Cardiovascular: no chest pain Gastrointestinal: as per Subjective / HPI Genitourinary: no dysuria Musculoskeletal: no back pain Integumentary: no rash Neurologic: no localized weakness Physical Exam Constitutional: WD/WN, vitals as above Eyes: no conjunctival abnormality ENMT: Ears: no hearing impairment and no external ear abnormality Neck: trachea midline Respiratory: normal respiratory effort; no respiratory distress and no labored breathing Cardiovascular: Rate/Rhythm: regular rate and regular rhythm Gastrointestinal (Abdomen): Abdomen is mildly distended. Bowel sounds are hypoactive. Patient had generalized pain throughout her abdomen with palpation without noted rebound tenderness Musculoskeletal: No calf tenderness Neurologic: moves all extremities Psychiatric: A+Ox3, euthymic affect Results & Data Vital Signs (Past 12 Hours) Vital Signs Temp Pulse Resp BP Pulse Ox O2 Del Method 11/05/23 05:30 73 17 113/75 90 11/05/23 05:00 77 16 120/74 91 11/05/23 04:44 76 14 128/72 93 11/05/23 04:00 89 17 114/66 93 11/05/23 03:38 87 11/05/23 03:30 88 17 124/75 93 11/05/23 03:04 98 Room Air 11/05/23 02:47 36.0 C L 96 H 16 125/84 96 Room Air PG Care Time/CCT Total # of Minutes Spent Total Time Spent with Patient: Total time spent is greater than 50% in coordination of care (as documented) at patient's floor/unit and/or counseling patient: Coding Level of Care Code 31605 IN/OBS CONSULT LVL 5,80M Diagnoses SBO (small bowel obstruction) K56.609
--- NOTE | 2023-11-05 07:53 | History & Physical Report ---
Date of Service November 05, 2023 Assessment & Plan (1) SBO (small bowel obstruction): Plan: 48-year-old female with past medical history significant for hypertensive urgency, crohn's disease, restless leg syndrome, immunodeficiency due to drugs, tobacco use disorder, depression with anxiety, presents with abdominal pain. Patient states having abdominal pain on and off for last 2 weeks but since last 1 to 2 days the pain got really severe. Pain is located in the right side of the abdomen radiating to all over the abdomen. Associate with nausea no but no vomiting. Had a bowel movement on Wednesday. Yesterday was passing some gas. Denies any chest pain or shortness of breath. No cough. No fevers. Normal micturition. No headache. Vision is okay. No runny nose or sore throat. Hemodynamics are okay. Abdominal pain Small bowel obstruction Nausea but no vomiting Conservative management Appreciate surgery inputs N.p.o., IV fluids, IV antiemetics as needed, IV Dilaudid as needed Because of history of crohn's's disease consult GI Close monitor Crohn's disease On Stelara Hypertension Not on medications We will monitor Depression and anxiety Continue home medications Restless leg syndrome On gabapentin GERD On PPI DVT prophylaxis Lovenox Disposition Medical floor Full code History of Present Illness Chief Complaint: Abdominal pain Primary Care Provider: Giovany Correa DO 48-year-old female with past medical history significant for hypertensive urgency, crohn's disease, restless leg syndrome, immunodeficiency due to drugs, tobacco use disorder, depression with anxiety, presents with abdominal pain. Patient states having abdominal pain on and off for last 2 weeks but since last 1 to 2 days the pain got really severe. Pain is located in the right side of the abdomen radiating to all over the abdomen. Associate with nausea no but no vomiting. Had a bowel movement on Wednesday. Yesterday was passing some gas. Denies any chest pain or shortness of breath. No cough. No fevers. Normal micturition. No headache. Vision is okay. No runny nose or sore throat. Hemodynamics are okay. Past medical history. As mentioned above. Past surgical history. Colonoscopy multiple. Colonoscopy biopsy. EGD. Laparoscopic partial colectomy with anastomosis. Diagnostic laparoscopy. Nasal sinus endoscopy. Rhinoplasty. Tonsillectomy. Bowel resection. Social history. Smokes half pack a day for 20 years. Alcohol drinks less than monthly. No drug use. Family history. Father has allergies. Asthma. Esophageal cancer. TIA. Mother has arthritis. Diverticulitis. Heart disorder. Sister has Crohn's disease. Sister has diabetes. Maternal grandfather had cancer. Allergies Allergy/AdvReac Type Severity Reaction Status Date / Time No Known Allergies Allergy Verified 01/13/23 09:36 Home Medications Medication Instructions Recorded Confirmed Type bupropion HCl 75 mg tablet 150 mg PO BID 11/05/23 11/05/23 History dextroamphetamine-amphetamine 5 mg 5 mg PO BID 11/05/23 11/05/23 History tablet diclofenac sodium 1 % topical gel 4 g topical TID PRN Pain 11/05/23 11/05/23 History diphenoxylate-atropine 2.5 1 tab PO DAILY PRN Diarrhea 11/05/23 11/05/23 History mg-0.025 mg tablet fluoxetine 40 mg capsule 80 mg PO DAILY 11/05/23 11/05/23 History gabapentin 300 mg capsule 300 mg PO UD 11/05/23 11/05/23 History gabapentin 600 mg tablet 600 mg PO HS 11/05/23 11/05/23 History lorazepam 0.5 mg tablet 0.5 mg PO TID PRN Anxiety 11/05/23 11/05/23 History oxycodone 5 mg tablet 5 mg PO Q6H PRN Outbreak 11/05/23 11/05/23 History pantoprazole 40 mg tablet,delayed 40 mg PO DAILY 11/05/23 11/05/23 History release potassium chloride 10 mEq 10 meq PO DAILY 11/05/23 11/05/23 History capsule,extended release ustekinumab 90 mg/mL subcutaneous 1 mg subcut UD 11/05/23 11/05/23 History syringe (Stelara) Past Med/Surg History Medical History Encounter for pre-operative examination Prolonged QT interval Cholelithiasis Abnormal CT scan, chest History of Clostridioides difficile colitis History of uveitis History of erythema nodosum History of deviated nasal septum Chronic maxillary sinusitis Tobacco abuse Depression with anxiety Crohn's disease Surgical History History of surgery (01/04/23) Attempted Laparoscopy, Exploratory Laparotomy, Lysis of Adhesions(Not Applicable) - Alexx Garrett MD, FACS History of colonoscopy Last 07/2019 History of rhinoplasty Multiple nasal surgeries x3 History of colectomy Family History Father Heart disease TIA (transient ischemic attack) Mother Heart disease FH: diverticulitis Sister Crohn's disease Diabetes Social History Smoking Status: Current every day smoker Tobacco Type: Cigarettes Cigarettes Per Day: 1/2 pack per day; Second Hand Exposure: No; Do You Dip or Chew Tobacco: No; Hx Alcohol Use: Yes Alcohol type: wine and hard liquor Alcohol type Comment: Once a month Hx Substance Use: No Preferred Language: Tamazight Communication Ability: Effective Visual Communications Instructor Required: No Beliefs That Will Affect Care: None marital status: Single Current Living Situation: Other Current Living Situation Comment: ex boyfriend Feels Safe at Home: Yes Assistive Devices: None Review of Systems Review of Systems: All systems reviewed & are unremarkable except as noted in HPI & below Physical Exam Physical Exam: General- Not in distress Head- atraumatic Eyes- PERRL. ENT- oropharynx clear Neck- supple, no JVD Lungs- clear to auscultation no wheezing or crackles. Heart- regular rhythm; no murmur, no gallop Abdomen- absent bowel sounds, soft, diffuse tender, guarding present,no distension seen. Extremities- no pretibial edema, no erythema seen. Neuro- alert, oriented PERRL, no facial palsy; no dysarthria; Results & Data Results & Data Vital Signs (Past 12 Hours) Vital Signs Temp Pulse Pulse Resp BP BP Pulse Ox 11/05/23 07:00 82 20 126/94 96 11/05/23 05:30 73 17 113/75 90 11/05/23 05:00 77 16 120/74 91 11/05/23 04:44 76 14 128/72 93 11/05/23 04:00 89 17 114/66 93 11/05/23 03:38 87 11/05/23 03:30 88 17 124/75 93 11/05/23 03:04 98 11/05/23 02:47 36.0 C L 96 H 16 125/84 96 O2 Del Method O2 Flow Rate 11/05/23 07:00 Nasal Cannula 2 11/05/23 05:30 11/05/23 05:00 11/05/23 04:44 11/05/23 04:00 11/05/23 03:38 11/05/23 03:30 11/05/23 03:04 Room Air 11/05/23 02:47 Room Air Diagnostic Findings Laboratory Results WBC 9.25 K/ul (4.8-10.8) 11/05/23 03:05 RBC 4.42 M/uL (4.20-5.40) 11/05/23 03:05 Hgb 13.2 g/dl (12.0-16.0) 11/05/23 03:05 Hct 39.3 % (37.0-47.0) 11/05/23 03:05 MCV 88.9 fL (80.0-100.0) 11/05/23 03:05 MCH 29.9 pg (25.0-34.0) 11/05/23 03:05 MCHC 33.6 g/dL (32.0-36.0) 11/05/23 03:05 RDW Std Deviation 46.6 fL (36.4-46.3) H 11/05/23 03:05 RDW Coeff of Samia 14.4 % (11.5-14.5) 11/05/23 03:05 Plt Count 425 K/uL (130-400) H 11/05/23 03:05 MPV 8.9 fL (9.4-12.4) L 11/05/23 03:05 Immature Gran % (Auto) 0.4 % 11/05/23 03:05 Neut % (Auto) 63.6 % 11/05/23 03:05 Lymph % (Auto) 25.7 % 11/05/23 03:05 [place] % (Auto) 7.5 % 11/05/23 03:05 Eos % (Auto) 2.2 % 11/05/23 03:05 Baso % (Auto) 0.6 % 11/05/23 03:05 Neut # (Auto) 5.88 K/uL (1.40-6.50) 11/05/23 03:05 Lymph # (Auto) 2.38 K/uL (1.20-3.40) 11/05/23 03:05 [place] # (Auto) 0.69 K/uL (0.11-0.59) H 11/05/23 03:05 Eos # (Auto) 0.20 K/uL (0.00-0.50) 11/05/23 03:05 Baso # (Auto) 0.06 K/uL (0.00-0.20) 11/05/23 03:05 Immature Gran # (Auto) 0.04 K/uL (0.01-0.20) 11/05/23 03:05 Sodium 140 mmol/L (136-145) 11/05/23 03:05 Potassium 3.3 mmol/L (3.5-5.1) L 11/05/23 03:05 Chloride 104 mmol/L (98-107) 11/05/23 03:05 Carbon Dioxide 27 mmol/L (21-32) 11/05/23 03:05 Anion Gap 9 (3-11) 11/05/23 03:05 BUN 14 mg/dl (6-23) 11/05/23 03:05 Creatinine 0.82 mg/dl (0.6-1.2) 11/05/23 03:05 Est Cr Clr Drug Dosing 82.8 ml/min 11/05/23 03:05 Est GFR ( Amer) 96.7 ml/min 11/05/23 03:05 Est GFR (Non-Af Amer) 83.4 ml/min 11/05/23 03:05 BUN/Creatinine Ratio 17.1 (10-20) 11/05/23 03:05 Glucose 117 mg/dl (70-99(Fasting)) H 11/05/23 03:05 Calcium 9.0 mg/dl (8.6-10.3) 11/05/23 03:05 Total Bilirubin 0.3 mg/dl (0.2-1.0) 11/05/23 03:05 AST 18 U/L (13-39) 11/05/23 03:05 ALT 15 U/L (7-52) 11/05/23 03:05 Alkaline Phosphatase 71 U/L (34-104) 11/05/23 03:05 Total Protein 7.9 gm/dl (6.0-8.3) 11/05/23 03:05 Albumin 4.3 gm/dl (3.4-5.0) 11/05/23 03:05 Globulin 3.6 gm/dl (2.5-4.0) 11/05/23 03:05 Albumin/Globulin Ratio 1.2 (0.9-2) 11/05/23 03:05 Lipase 23 U/L (11-82) 11/05/23 03:05 Impressions Abdomen/Pelvis CT 11/05/23 03:08 Exam(s): CT ABDOMEN + PELVIS With Contrast IV Amt: 90 ml optiray 320 EXAM: CT Abdomen and Pelvis With Intravenous Contrast CLINICAL HISTORY: Reason for exam: eval for sbo. TECHNIQUE: Axial computed tomography images of the abdomen and pelvis with intravenous contrast. CTDI is 2 6 18.55 mGy and DLP is 1007.37 mGy-cm. Automated exposure control was utilized for the study. A dose lowering technique was utilized adhering to the principles of ALARA. CONTRAST: Patient received 90 ml optiray 320 of IV contrast COMPARISON: No relevant prior studies available. FINDINGS: ABDOMEN: Liver: Unremarkable. No mass. Gallbladder and bile ducts: Gallstones. No gallbladder wall thickening. No ductal dilation. Pancreas: Unremarkable. No mass. No ductal dilation. Spleen: Unremarkable. No splenomegaly. Adrenals: Unremarkable. No mass. Kidneys and ureters: Unremarkable. No solid mass. No hydronephrosis. Stomach and bowel: There has been a previous right hemicolectomy with ileocolic anastomosis. There is abnormally dilated small bowel with loops measuring over 3.5 cm in diameter. This is consistent with small bowel obstruction. The point of obstruction is in the anterior abdomen near the midline. This appears to be at or very near the ileocolic anastomosis. PELVIS: Appendix: Absent. Bladder: Unremarkable. No mass. ABDOMEN and PELVIS: Intraperitoneal space: Unremarkable. No free air. No significant fluid collection. Bones/joints: No acute findings. Soft tissues: Unremarkable. Vasculature: Unremarkable. No abdominal aortic aneurysm. Lymph nodes: Unremarkable. No enlarged lymph nodes. IMPRESSION: Small bowel obstruction. Electronically signed by: Alexx Tran MD 11/05/23 05:50 AM Code Status & VTE Plan VTE Prophylaxis Plan VTE Prophylaxis will be ordered: Yes
[2023-11-05] MEDS: ACETAMINOPHEN 1,000 MG/100 ML VIAL IV STA (08:43)
[2023-11-05] MEDS: HYDROmorphone INJ 1 MG/ML SYRINGE IV STA (09:38)
[2023-11-05] MEDS: POTASSIUM CHLORIDE / WTR 10 MEQ/100 ML PLCT IV SCH (09:43)
[2023-11-05] MEDS ORDERED: ONDANSETRON INJ 2 MG/ML 2 ML VIAL IV PRN (10:39)
[2023-11-05] MEDS ORDERED: DICLOFENAC SOD 1% GEL 100 GM TUBE EXT PRN (10:39)
[2023-11-05] MEDS: D5W AND 1/2NSS 1,000 ML IV SCH (10:51)
[2023-11-05] MEDS: GABAPENTIN 300 MG CAP PO SCH (11:11)
[2023-11-05] MEDS: FLUoxetine HCL 20 MG CAP PO SCH (11:11)
[2023-11-05] MEDS: PANTOprazole 40 MG TAB PO SCH (11:11)
[2023-11-05] MEDS: POTASSIUM CHLORIDE 10 MEQ TABCR PO SCH (11:12)
[2023-11-05] MEDS: buPROPion HCl 75 MG TABLET PO SCH (11:12)
[2023-11-05] MEDS: ENOXAPARIN INJ 40 MG/0.4 ML SYR SQ SCH (11:12)
[2023-11-05] MEDS: PANTOprazole 40 MG in SYRINGE 0 ML IV SCH (11:13)
--- NOTE | 2023-11-05 11:14 | Gastrointestinal Consultation ---
Date of Consultation November 05, 2023 Assessment & Plan (1) SBO (small bowel obstruction): 48 year old female with history of RLS, Ileocolonic Crohn's s/p multiple surgeries last colonoscopy suggesting remission in 2021 on Stelara admitted with a SBO, etiology adhesive vs inflammatory. Her CT does not show any active inflammation, however, last admission in March 2023 she was treated for SBO w/o obvious inflammatory changes with steroids. SBO management per general surgery guidance Maintain NPO status If she develops nausea or vomiting, NG to LIS should be considered Antiemetics PRN Analgesia PRN Recommend to continue stelara If she develops loose stools, check c.diff and stool culture. If negative consider course of steroids. Will discuss case with her primary independent living advisor Thank you for allowing us to participate in the care of this patient. Please call with any acute changes, questions or concerns. Please see addendum below with additional recommendation from my supervising physician. Supervising Physician Co-Signing Physician Notes Agree with pe and plan as documented. Slight ttp abdomen but not distended. Multiple prior sbo's, multiple prior abdominal surgeries. Presumed sbo given prior surgical history from adhesions as her crohn's has been in remission. If primary GI feels need for steroids that may be recommended. Agree with further plan of care. History of Present Illness Reason for Consultation: Crohn's SBO Requesting Physician: Gina Attending Physician: Inez Fuentes MD History of Present Illness 48 year old female with history of RLS, Ileocolonic Crohn's s/p mult surgeries last colonoscopy suggesting remission in 2021 on Stelara admitted through the ED with SBO. She notes that over the last few days she has felt some upper abd pressure, however, this acutely worsened yesterday which prompted ED evaluation. She suggests that her symptoms felt similar to when she had obstructions previously. She did have some nausea but no vomiting. No report of diarrhea. No black or bloody stools. She was seen by general surgery, plan is to maintain NPO status, IV hydration. Her last SBO was managed conservatively, and at that time it was unclear if SBO was related to adhesive disease or active IBD. She was started on steroids and improved. WBC 9 HGB 13 [employer] 0.82 CRP/ESR not obtained CTAP 2023: There has been a previous right hemicolectomy with ileocolic anastomosis. There is abnormally dilated small bowel with loops measuring over 3.5 cm in diameter. This is consistent with small bowel obstruction. The point of obstruction is in the anterior abdomen near the midline. This appears to be at or very near the ileocolic anastomosis. Colonoscopy 2021: No evidence of active IBD. Crohn's appears in remission. Allergies Allergy/AdvReac Type Severity Reaction Status Date / Time No Known Allergies Allergy Verified 01/13/23 09:36 Home Medications Medication Instructions Recorded Confirmed Type bupropion HCl 75 mg tablet 150 mg PO BID 11/05/23 11/05/23 History dextroamphetamine-amphetamine 5 mg 5 mg PO BID 11/05/23 11/05/23 History tablet diclofenac sodium 1 % topical gel 4 g topical TID PRN Pain 11/05/23 11/05/23 History diphenoxylate-atropine 2.5 1 tab PO DAILY PRN Diarrhea 11/05/23 11/05/23 History mg-0.025 mg tablet fluoxetine 40 mg capsule 80 mg PO DAILY 11/05/23 11/05/23 History gabapentin 300 mg capsule 300 mg PO UD 11/05/23 11/05/23 History gabapentin 600 mg tablet 600 mg PO HS 11/05/23 11/05/23 History lorazepam 0.5 mg tablet 0.5 mg PO TID PRN Anxiety 11/05/23 11/05/23 History oxycodone 5 mg tablet 5 mg PO Q6H PRN Outbreak 11/05/23 11/05/23 History pantoprazole 40 mg tablet,delayed 40 mg PO DAILY 11/05/23 11/05/23 History release potassium chloride 10 mEq 10 meq PO DAILY 11/05/23 11/05/23 History capsule,extended release ustekinumab 90 mg/mL subcutaneous 1 mg subcut UD 11/05/23 11/05/23 History syringe (Stelara) Patient History Medical History Encounter for pre-operative examination Prolonged QT interval Cholelithiasis Abnormal CT scan, chest History of Clostridioides difficile colitis History of uveitis History of erythema nodosum History of deviated nasal septum Chronic maxillary sinusitis Tobacco abuse Depression with anxiety Crohn's disease Surgical History History of surgery (01/04/23) Attempted Laparoscopy, Exploratory Laparotomy, Lysis of Adhesions(Not Applicable) - Alexx Garrett MD, FACS History of colonoscopy Last 07/2019 History of rhinoplasty Multiple nasal surgeries x3 History of colectomy Family History Father Heart disease TIA (transient ischemic attack) Mother Heart disease FH: diverticulitis Sister Crohn's disease Diabetes Social History Smoking Status: Current every day smoker Tobacco Type: Cigarettes Cigarettes Per Day: 1/2 pack per day; Second Hand Exposure: No; Do You Dip or Chew Tobacco: No; Hx Alcohol Use: No Hx Substance Use: No Preferred Language: Slovak Communication Ability: Effective Airplane Refueler Required: No Beliefs That Will Affect Care: None marital status: Single Current Living Situation: Other Current Living Situation Comment: Friend/roommate- Bong Other Information That Helps Us Care for You: No Feels Safe at Home: Yes Safety Concerns: Feels Safe At This Time Assistive Devices: Glasses Review of Systems Review of Systems: All systems reviewed & are unremarkable except as noted in HPI & below Physical Exam Constitutional: WD/WN, vitals as above Respiratory: normal respiratory effort Cardiovascular: Rate/Rhythm: regular rate Gastrointestinal (Abdomen): Percussion/Palpation: + abdomen tender and abdomen soft; no guarding and abdomen not rigid Skin: no rashes, warm and dry Results & Data Vital Signs (Past 12 Hours) Vital Signs Temp Pulse Pulse Resp BP BP Pulse Ox 11/05/23 09:00 72 20 112/73 95 11/05/23 07:44 78 11/05/23 07:00 82 20 126/94 96 11/05/23 05:30 73 17 113/75 90 11/05/23 05:00 77 16 120/74 91 11/05/23 04:44 76 14 128/72 93 11/05/23 04:00 89 17 114/66 93 11/05/23 03:38 87 11/05/23 03:30 88 17 124/75 93 11/05/23 03:04 98 11/05/23 02:47 36.0 C L 96 H 16 125/84 96 O2 Del Method O2 Flow Rate 11/05/23 09:00 Room Air 11/05/23 07:44 11/05/23 07:00 Nasal Cannula 2 11/05/23 05:30 11/05/23 05:00 11/05/23 04:44 11/05/23 04:00 11/05/23 03:38 11/05/23 03:30 11/05/23 03:04 Room Air 11/05/23 02:47 Room Air Laboratory Results 11/05/23 Range/Units 03:05 WBC 9.25 (4.8-10.8) K/ul RBC 4.42 (4.20-5.40) M/uL Hgb 13.2 (12.0-16.0) g/dl Hct 39.3 (37.0-47.0) % MCV 88.9 (80.0-100.0) fL MCH 29.9 (25.0-34.0) pg MCHC 33.6 (32.0-36.0) g/dL RDW Std Deviation 46.6 H (36.4-46.3) fL RDW Coeff of Samia 14.4 (11.5-14.5) % Plt Count 425 H (130-400) K/uL MPV 8.9 L (9.4-12.4) fL Immature Gran % (Auto) 0.4 % Neut % (Auto) 63.6 % Lymph % (Auto) 25.7 % [place] % (Auto) 7.5 % Eos % (Auto) 2.2 % Baso % (Auto) 0.6 % Neut # (Auto) 5.88 (1.40-6.50) K/uL Lymph # (Auto) 2.38 (1.20-3.40) K/uL [place] # (Auto) 0.69 H (0.11-0.59) K/uL Eos # (Auto) 0.20 (0.00-0.50) K/uL Baso # (Auto) 0.06 (0.00-0.20) K/uL Immature Gran # (Auto) 0.04 (0.01-0.20) K/uL Sodium 140 (136-145) mmol/L Potassium 3.3 L (3.5-5.1) mmol/L Chloride 104 (98-107) mmol/L Carbon Dioxide 27 (21-32) mmol/L Anion Gap 9 (3-11) BUN 14 (6-23) mg/dl Creatinine 0.82 (0.6-1.2) mg/dl Est Cr Clr Drug Dosing 82.8 ml/min Est GFR ( Amer) 96.7 ml/min Est GFR (Non-Af Amer) 83.4 ml/min BUN/Creatinine Ratio 17.1 (10-20) Glucose 117 H (70-99(Fasting)) mg/dl Calcium 9.0 (8.6-10.3) mg/dl Total Bilirubin 0.3 (0.2-1.0) mg/dl AST 18 (13-39) U/L ALT 15 (7-52) U/L Alkaline Phosphatase 71 (34-104) U/L Total Protein 7.9 (6.0-8.3) gm/dl Albumin 4.3 (3.4-5.0) gm/dl Globulin 3.6 (2.5-4.0) gm/dl Albumin/Globulin Ratio 1.2 (0.9-2) Lipase 23 (11-82) U/L
[2023-11-05] MEDS: HYDROmorphone INJ 0.5 MG/0.5 ML SYR IV PRN (12:09)
[2023-11-05] MEDS: DEXTROAMPHETAMINE/AMPHETAMIME IR 5 MG TAB PO SCH (12:35)
[2023-11-05 12:55] LABS: Appearance Urine Clear (Clear); Bacteria Urine Automated Negative (Negative); Bilirubin Urine Negative (Negative); Blood Urine Trace (Negative); Color Urine Yellow; Glucose Urine UA Negative (Negative); Ketones Urine Negative (Negative); Leukocyte Esterase Urine Negative (Negative); Nitrite Urine Negative (Negative); Protein Urine Negative (Negative); RBC Urine Automated 0-4 /hpf (0-4); Specific Gravity Urine > 1.045 (1.000-1.030); Urobilinogen Urine Negative (Negative)
--- NOTE | 2023-11-05 16:37 | Communication Note ---
Date of Service: November 05, 2023 Patient evaluated at bedside. Reports feeling much improved since admission. Reports some flatus, but minimal. Denies active nausea at this time. Exam with tender abdomen, slightly distended, but soft Reviewed GI notes: antiemetics, analgesia prn, planning to discuss steroids with primary GI Reviewed Surgery notes: conservative management. Formal progress note in am
[2023-11-05] MEDS: NICOTINE 21 MG/24 HR TDSY TD SCH (17:02)
[2023-11-05] MEDS: GABAPENTIN 600 MG TAB PO SCH (20:17)
[2023-11-05] MEDS: ACETAMINOPHEN 1,000 MG/100 ML VIAL IV PRN (21:50)
[2023-11-05] MEDS: LORazepam 0.5 MG TAB PO PRN (21:51)
--- OUTSIDE RECORDS SUMMARY | 2023-11-06 02:40 | External Medical Summary | Summary of Care ---
Author Name Unknown Organization [facility] Address [address] [place] [address] Phone [phone] Care Team Providers Care Cook Apprentice Name Role Phone Giovany Correa Primary Care Provider Reason for Visit * Reason Comments eRx-Medication Refill Encounter Details Date Type Department Care Team (Late st Contact Info) Description 10/25/2023 Refill Gastroenterology, [facility] [place] [address] [place] [address] Cheryl Rowley MD [address] [facility] [place] [id number] Allergies No known active allergiesdocumented as of this encounter (statuses as of 10/27/2023) Medications Medication Sig Dispensed Refills Start Date End Date Status OSCAL 500/200 D-3 500-200 MG-UNIT PO TABSIndications:Case Resource Manager hn's disease of colon (HCC) one tab once a day 30 5 11/08/2008 Active Additional Information Patient taking differently: (No route reported), HS, Reported on 07/02/2022 FISH OIL 1000 MG PO CAPS 1 tab by mouth daily in the evening 0 11/27/2009 Active NASAL SALINE 0.65 % NA SOLNIndications:Chr onic rhinitis,Other chronic sinusitis flush each nostril morning and night and every 2-4 hrs as needed for nasal dryness or congestion 1 Bottle 4 07/31/2010 Active MUCINEX D 120-1200 MG PO [id number]:Chr onic rhinitis,Other chronic sinusitis,Hypertrop hy of nasal turbinates,Dysfunct ion of eustachian tube 1 TABLET EVERY 12 HOURS NEEDED FOR NASAL CONGESTION 30 Tab 3 07/31/2010 Active Additional Information Patient not taking.Reported on 06/30/2022 Albuterol Sulfate HFA 108 (90 Base) MCG/ACT Inhalation Aerosol SolutionIndications :Acute maxillary sinusitis, recurrence not specified,Bronchiti s, complicated inhale 2 puffs by mouth and INTO THE LUNGS four times a day 18 g 3 02/03/2021 Active traMADol HCl 50 MG Oral Tablet (Ultram) Take 1 Tab by mouth every 6 hours as needed (pain not controlled with tylenol). 5 Tab 0 02/19/2021 Active Fluticasone Propionate 50 MCG/ACT Nasal Suspension (Flonase)Indication s:Acute sinusitis instill 2 sprays into each nostril once daily 48 g 3 05/19/2021 Active Multi-Day Oral Tablet Take 1 Tablet by mouth every evening. 0 Active Melatonin 5 MG Oral Capsule Take 1 Capsule by mouth at bedtime. 0 Active Azelastine HCl 137 MCG/SPRAY Nasal SolutionIndications :Chronic rhinitis instill 2 sprays into each nostril twice a day 30 mL 5 10/20/2021 Active Potassium Chloride ER 10 MEQ Oral Tablet Extended Release Take 2 Tablets by mouth in the morning. 0 01/08/2023 Active oxyCODONE HCl 5 MG Oral Capsule (Oxy IR) Take 1 Capsule by mouth every 4 hours as needed. 0 Active Amoxicillin-Pot Clavulanate 875-125 MG Oral Tablet Take 1 Tablet by mouth in the morning and 1 Tablet before bedtime. 0 Active Potassium Chloride ER 10 MEQ Oral Capsule Extended Release take 1 capsule by mouth once daily 90 Capsule 2 02/19/2023 Active Diclofenac Sodium 1 % External Gel (Voltaren)Indicatio ns:Elbow pain, chronic, right apply 4 grams to affected area three times a day NEEDED FOR PAIN APPLY TO ELBOW 350 g 3 03/29/2023 Active predniSONE 5 MG Oral Tablet (Deltasone) Take 1 Tablet by mouth in the morning. 7 Tablet 0 05/20/2023 Active buPROPion HCl 75 MG Oral Tablet (Wellbutrin) Take 2 Tablets by mouth 2 times a day in the morning and at noon. 120 Tablet 1 06/16/2023 Active FLUoxetine HCl 40 MG Oral Capsule (PROzac) Take 2 Capsules by mouth in the morning. In the morning.. 60 Capsule 2 06/16/2023 Active Pantoprazole Sodium 40 MG Oral Tablet Delayed Release (Protonix) take 1 tablet by mouth once daily 90 Tablet 1 06/25/2023 Active LORazepam 0.5 MG Oral Tablet (Ativan)Indications :Anxiety Take 1 Tablet by mouth in the morning and 1 Tablet at noon and 1 Tablet before bedtime. 90 Tablet 0 08/03/2023 Active Amphetamine-Dextroa mphetamine 5 MG Oral Tablet (Adderall) Take 1 Tablet by mouth 2 times a day in the morning and at noon. 60 Tablet 0 08/04/2023 Active Stelara 90 MG/ML Subcutaneous Solution Prefilled Syringe (Getonic) INJECT 1 SYRINGE UNDER THE SKIN EVERY 8 WEEKS. REFRIGERATE. DO NOT FREEZE. 1 mL 6 08/03/2023 Active Gabapentin 300 MG Oral Capsule (Neurontin) Take 1 Capsule by mouth 2 times a day in the morning and at noon. 60 Capsule 1 09/21/2023 Active Gabapentin 600 MG Oral Tablet (Neurontin) Take 1 Tablet by mouth at bedtime. 30 Tablet 1 09/21/2023 Active Diphenoxylate-Atrop ine 2.5-0.025 MG Oral Tablet (Lomotil) Take 1 Tablet by mouth daily as needed for Diarrhea. 30 Tablet 5 10/26/2023 Active Hospital, Clinic, or Other Facility Administered Medication Ordered Dose Route Frequency Start Date End Date Status albuterol sulfate (PROVENTIL) (2.5 MG/3ML) 0.083% inhalation solution 2.5 mgIndications:ESCOBEDO (dyspnea on exertion) 2.5 mg NEBULIZER PRN 11/15/2019 Act ran documented as of this encounter (statuses as of 10/27/2023) Active Problems Problem Noted Date Diagnosed Date Immunodeficiency due to drugs 08/03/2023 Other instability, right shoulder 08/03/2023 Hypertensive urgency 08/03/2023 Restless legs syndrome (RLS) 06/30/2022 Gastrostomy status 06/30/2022 Hypokalemia 06/30/2022 Crohn's disease of colon without complication Controlled substance agreement signed 08/28/2015 Vitamin D deficiency 11/21/2014 Overview: October 2014 = 21. Discuss with PCP. ICD-10 update of inactive term Tobacco use disorder Depression with anxiety documented as of this encounter (statuses as of 10/27/2023) Resolved Problems Problem Noted Date Diagnosed Date Resolved Date Current mild episode of mai r depressive disorder without prior episode 10/31/2019 Crohn's disease of small int estine with complication 06/13/2019 11/07/2021 Amenorrhea, secondary 01/26/20172021 Overview: No menses in 400+ days. Will check FSH. Lizbeth Corea CNM 01/26/2017 10:50 AM Acute ethmoidal sinusitis 12/28/2016 Chronic ethmoidal sinusitis 12/28/2016 11/07/2021 Chronic maxillary sinusitis 12/28/2016 11/07/2021 IUD 12/21/2012 01/28/2015 Overview: Mirena placed 10/29. Dysfunction of eustachian tube 07/31/2010 11/07/2021 Follow-up examination, follo wing other surgery 01/01/2010 09/30/2017 Hypertrophy of nasal turbinates 10/21/2007 10/31/2019 Other chronic sinusitis 07/01/200710/21 NONALLERGIC RHINITIS 02/17/2007 020 Deviated nasal septum 02/17/20072021 Acquired deformity of nose 01/20/2007 0 11/07/2021 Acquired deformity of nose 01/20/2007 0 09/27/2008 Overview: Resolved per Duplicate Protocol #2. S/P (STATUS POST) INTESTINAL ANASTOMOSIS 08/05/2005 11/07/2021 ADVANCE DIRECTIVE INFORMATION 06/16/2005 11/07/2021 Overview: No, Advance Directive brochure offered , patient declined. REG ENTERITIS, LG INTEST 06/09/2005 Tobacco use disorder 009 Overview: Resolved per Duplicate Protocol #2. Chronic rhinitis 09/27/2008 Overview: Resolved per Duplicate Protocol #2. Major depressive disorder Overview: ICD-10 update of inactive term Crohn's disease 04/30/2021 Crohn's disease 07/24/2013 Anxiety states 11/01/2015 Overview: ICD-10 update of inactive term documented as of this encounter (statuses as of 10/27/2023) Immunizations Name Administration Dates Next Due COVID-19 mRNA, LNP-s, No Pre serve, 2-Dose Series (Moderna) 09/14/2020 COVID-19 mRNA, LNP-s, No Pre serve, 2-Dose Series (Pfizer) 11/15/2020 Hepatitis B, 20+ yrs 07/31/2010 PPD 03/18/2016, 4,06/12/2013,05/29,10/04/2012,04/21/2011,04/21/2010 ,03/26/2009,05/27/2007,06/08/2006 Pneumococcal Conjugate Vacc, 13 Valent (Prevnar) 02/08/2020 Pneumococcal Polysaccharide PPV23 (Pneumovax) 12/19/2009 TDAP (age 10 and older)(Boostrix) 02/08/2020 TDAP (age 11 and older)(Adacel) 12/19/2009 documented as of this encounter Social History Tobacco Use Types Packs/Day Years Used Date Smoking Tobacco: Every Day Cigarettes 0.5 20 Smokeless Tobacco: Never Alcohol Use Standard Drinks/Week Comments Yes 0 (1 standard drink = 0.6 oz pur e alcohol) Less than monthly PHQ-2 Answer Date Recorded PHQ Adult Total Score 15 12/01/2021 Hunger Vital Sign Answer Date Recorded Worried About Running Out of Food in the Last Ye ar Never true 02/08/2020 Ran Out of Food in the Last Year Never true 02/08/2020 Sex and Gender Information Value Date Recorded Sex Assigned at Female 12/09/2018 3:23 PM EDT Gender Identity Female 12/09/2018 3:23 PM EDT Sexual Orientation Straight 12/09/2018 3: 23 PM EDT Job Start Date Occupation Industry Not on file Not on file Not on file documented as of this encounter Functional Status Functional Status Response Date of Assess ment Are you deaf or do you have serious difficulty h earing? No 10/12/2020 Are you blind or do you have serious difficulty seeing, even when wearing glasses? No 10/12/2020 Do you have serious difficul ty walking or climbing stairs? (5 years old or older) No 10/14/2020 Do you have difficulty dress ing or bathing? (5 years old or older) No 10/12/2020 Because of a physical, menta l, or emotional condition, do you have difficulty doing errands alone such as visiting a doctor s office or shopping? (15 years old or older) No 10/12/19 Cognitive Status Response Date of Assessm ent Because of a physical, menta l, or emotional condition, do you have serious difficulty concentrating, remembering, or making decisions? (5 years old or older) No 10/12/2020 documented as of this encounter Miscellaneous Notes * Telephone Encounter - Jai Novak - 10/27/2023 10:17 PM ESTRefused Prescriptions: Disp Refills Diphenoxylate-Atropine 2.5-0.025 MG Oral T*30 Tab* Sig: TAKE 1 TABLET BY MOUTH DAILY NEEDED FOR DIARRHEARefused By: JAI NOVAKReason for Refusal: Duplicate Request documented in this encounter Plan of Treatment Upcoming Encounters Date Type Department Care Team (Late st Contact Info) Description 01/24/2024 4:00 PM EDT Telemedicine Psychiatry, [facility] [address] [place] [address] Lester Serna CRNP [address] [place] [address] 02/09/2024 12:20 PM EDT Office Visit Family [facility] [address] [place] [address] Giovany Correa, [address] [place] [phone] Health Maintenance Due Date Last Done Comments Albumin/Creatinine Ratio 1991 Zoster Vaccines (1 of 2) 1992 HPV/Co-Test 2003 Hepatitis B (2 of 3 - 19+ 3-dose series) 08/28/2010 07/31/2010 Mammogram 09/11/2016 09/11/2015 Cervical Cancer Screening 01/28/2018 Pap Smear 01/28/2018 01/28/2015, 03/2015, 12/21/2012, Additional history exists Cologuard 2018 Fecal Occult Blood Test 2018 Sigmoidoscopy 2018 Pneumococcal Vaccine: Pediatrics (0 to 5 Years) and At-Risk Patients (6 to 64 Years) (3 of 3 - PPSV23 or PCV20) 04/04/2020 02/08/2020, 12/19/2009 COVID-19 Vaccine (3 - Mixed Product risk series) 12/13/2020 11/15/2020, 09/14/2020 Depression, Most Recent Score >= 10 (will fire each visit until score < 10) 12/02/2021 12/01/2021 Influenza Vaccine (FLU shot) (#1) 2023 GFR 01/09/2024 01/08/2023, 04/0 01/2022, 09/13/2021, Additional history exists Diabetes Screening 01/08/2026 01/08/2023, 0 11/26/2021, 09/13/2021, Additional history exists Lipid Panel 05/01/2026 05/01/2021, 11/19/2008 DTaP,Tdap,and Td Vaccines (3 - Td or Tdap) 02/07/2030 02/08/2020, 12/19/2009 Colonoscopy 07/03/2032 07/03/2022, 06/23, 07/22/2021, Additional history exists Colorectal Cancer Screening 07/03/2032 GARDASIL-HPV IMMUNIZATION SERIES Aged Out No longer eligible based on patient's age to complete this topic MENINGOCOCCAL (MENACTRA/MENVEO) Aged Out No longer eligible based on patient's age to complete this topic documented as of this encounter Medical Devices Not on filedocumented as of this encounter Advance Directives Latest Code Status on File Code Status Date Activated Date Inactivated Comments Full Code 10/13/2020 12:38 PM 10/20/2020 5:31 PM This order reflects the patients wishes and were consensually agreed upon. Question Answer Comments Discussion of Advance Directives occurred with: Not Discussed Does the patient have a Living Will? No Does the patient have Health Care Power of Cinnamon Grinder? No Code Status History Code Status Date Activated Date Inactivated Comments Full Code 10/11/2020 11:06 PM 10/13/2020 12:38 PM Thi s order reflects the patients wishes and were consensually agreed upon. Full Code 12/31/2009 12:06 AM 01/04/2010 6:19 PM This order reflects the patients wishes and were consensually agreed upon. Question Answer Comments Discussion of Advance Directives occurred with: Patient Does the patient have a Living Will? No Does the patient have Health Care Power of Cinnamon Grinder? No Care Teams Cook Apprentice Relationship Specialty Start Date End Date Giovany Correa DO [address] [place] [id number] PCP - General Family Medicine 10/30/20 documented as of this encounter
--- OUTSIDE RECORDS SUMMARY | 2023-11-06 02:40 | External Medical Summary | Summary of Care ---
Author Name Unknown Organization [facility] Address [address] [facility] [place] [address] Phone [phone] Care Team Providers Care Design Studio Consultant Name Role Phone Giovany Correa Primary Care Provider Reason for Visit * Reason Onset Date Comments Medication Refill 10/25/2023 Encounter Details Date Type Department Care Team (Late st Contact Info) Description 10/25/2023 Refill Gastroenterology, [facility] [address] [place] [address] Laurel Klukarni CRNP [address] [place] [address] Allergies No known active allergiesdocumented as of this encounter (statuses as of 10/26/2023) Medications Medication Sig Dispensed Refills Start Date End Date Status OSCAL 500/200 D-3 500-200 MG-UNIT PO TABSIndications:Cr ohn's disease of colon (HCC) one tab once a day 30 5 11/08/2008 Active Additional Information Patient taking differently: (No route reported), HS, Reported on 07/02/2022 FISH OIL 1000 MG PO CAPS 1 tab by mouth daily in the evening 0 11/27/2009 Active NASAL SALINE 0.65 % NA SOLNIndications:Ch ronic rhinitis,Other chronic sinusitis flush each nostril morning and night and every 2-4 hrs as needed for nasal dryness or congestion 1 Bottle 4 07/31/2010 Active MUCINEX D 120-1200 MG PO [id number]:Ch ronic rhinitis,Other chronic sinusitis,Hypertro phy of nasal turbinates,Dysfunc tion of eustachian tube 1 TABLET EVERY 12 HOURS NEEDED FOR NASAL CONGESTION 30 Tab 3 07/31/2010 Active Additional Information Patient not taking.Reported on 06/30/2022 Albuterol Sulfate HFA 108 (90 Base) MCG/ACT Inhalation Aerosol SolutionIndication s:Acute maxillary sinusitis, recurrence not specified,Bronchit is, complicated inhale 2 puffs by mouth and INTO THE LUNGS four times a day 18 g 3 02/03/2021 Active traMADol HCl 50 MG Oral Tablet (Ultram) Take 1 Tab by mouth every 6 hours as needed (pain not controlled with tylenol). 5 Tab 0 02/19/2021 Active Fluticasone Propionate 50 MCG/ACT Nasal Suspension (Flonase)Indicatio ns:Acute sinusitis instill 2 sprays into each nostril once daily 48 g 3 05/19/2021 Active Multi-Day Oral Tablet Take 1 Tablet by mouth every evening. 0 Active Melatonin 5 MG Oral Capsule Take 1 Capsule by mouth at bedtime. 0 Active Azelastine HCl 137 MCG/SPRAY Nasal SolutionIndication s:Chronic rhinitis instill 2 sprays into each nostril [...] Active Diclofenac Sodium 1 % External Gel (Voltaren)Indicati ons:Elbow pain, chronic, right apply 4 grams to [...] 06/25/2023 Active LORazepam 0.5 MG Oral Tablet (Ativan)Indication s:Anxiety Take 1 Tablet by mouth in the morning and 1 Tablet at noon and 1 Tablet before bedtime. 90 Tablet 0 08/03/2023 Active Amphetamine-Dextro amphetamine 5 MG Oral Tablet (Adderall) Take 1 Tablet by mouth 2 times a day in the morning and at noon. 60 Tablet 0 08/04/2023 Active Stelara 90 MG/ML Subcutaneous Solution Prefilled Syringe (Results Scorecard) INJECT 1 SYRINGE UNDER THE SKIN EVERY 8 WEEKS. REFRIGERATE. DO NOT FREEZE. 1 mL 6 08/03/2023 Active Gabapentin 300 MG Oral Capsule (Neurontin) Take 1 Capsule by mouth 2 times a day in the morning and at noon. 60 Capsule 1 09/21/2023 Active Gabapentin 600 MG Oral Tablet (Neurontin) Take 1 Tablet by mouth at bedtime. 30 Tablet 1 09/21/2023 Active Diphenoxylate-Atro pine 2.5-0.025 MG Oral Tablet (Lomotil) Take 1 Tablet by mouth daily as needed for Diarrhea. 30 Tablet 5 10/26/2023 Active Diphenoxylate-Atro pine 2.5-0.025 MG Oral Tablet (Lomotil) TAKE 1 TABLET BY MOUTH DAILY NEEDED FOR DIARRHEA 30 Tablet 5 03/29/2023 4 Discontinue d(Refill) Hospital, Clinic, or Other Facility Administered Medication Ordered Dose Route Frequency Start Date End Date Status albuterol sulfate (PROVENTIL) (2.5 MG/3ML) 0.083% inhalation solution 2.5 mgIndications:ESCOBEDO (dyspnea on exertion) 2.5 mg NEBULIZER PRN 11/15/2019 Act ran documented as of this encounter (statuses as of 10/26/2023) Active Problems Problem Noted Date Diagnosed Date Immunodeficiency due to drugs 08/03/2023 Other instability, right shoulder 08/03/2023 Hypertensive urgency 08/03/2023 Restless legs syndrome (RLS) 06/30/2022 Gastrostomy status 06/30/2022 Hypokalemia 06/30/2022 Crohn's disease of colon without complication Controlled substance agreement signed 08/28/2015 Vitamin D deficiency 11/21/2014 Overview: October 2014 = . Discuss with PCP. ICD-10 update of inactive term Tobacco use disorder Depression with anxiety documented as of this encounter (statuses as of 10/26/2023) Resolved Problems Problem Noted Date Diagnosed Date [...] as of this encounter (statuses as of 10/26/2023) Immunizations Name Administration Dates Next Due COVID-19 [...] (15 years old or older) No 10/12/19 21 Cognitive Status Response Date of Assessm ent Because of a physical, menta l, or emotional condition, do you have serious difficulty concentrating, remembering, or making decisions? (5 years old or older) No 10/12/2020 documented as of this encounter Miscellaneous Notes * Telephone Encounter - Cheryl Bernabe MD - 10/26/2023 5:15 PM EST Signed Prescriptions: Disp Refills Diphenoxylate-Atropine 2.5-0.025 MG Oral T*30 Tab*5 Sig: Take 1 Tablet by mouth daily as needed for Diarrhea. Authorizing Provider: CHERYL BERNABE * Telephone Encounter - Najma Chan LPN - 10/25/2023 4:06 PM ESTPending Prescriptions: Disp Refills Diphenoxylate-Atropine 2.5-0.025 MG Oral T*30 Tab*5 Sig: Take 1 Tablet by mouth daily as needed for Diarrhea. * Telephone Encounter - Najma Chan LPN - 10/25/2023 4:03 PM EST Did you pend patient's preferred pharmacy and medication before forwarding?yes Pharmacy: [id number] [address] [place] [address] Pending Prescriptions: Disp Refills Diphenoxylate-Atropine 2.5-0.025 MG Oral *30 Tab*5 Sig: Take 1 Tablet by mouth daily as needed for Diarrhea. Last Visit: 01/12/2023 (in office), 05/20/2023 (telemedicine) Next Visit: Visit date not found If no future appointments scheduled, and last appointment is greater than a year ago, please schedule patient for a follow-up appointment Last date the medication was ordered: 03/29/2023 Is this request for a controlled substance? Yes Urine Drug Screen: Results for orders placed or performed in visit on 02/28/21 TOXICOLOGY, URINE SCREEN W/ CONFIRMATION Result Value Amphetamines Screen, U Positive (A) Benzodiazepines Screen, U Negative Cannabinoids Screen, U Negative Cocaine Metabolite Screen, U Negative Hydrocodone Screen, U Refer to confirmation results (A) Methadone Metabolite Screen, U Negative Morphine/Codeine Screen, U Negative Oxycodone Screen, U Negative Narrative Cutoff Concentrations: Drug Level Amphetamines 500 ng/mL Benzodiazepines 100 ng/mL Cannabinoids 50 ng/mL Cocaine Metabolite 150 ng/mL Hydrocodone / Hydromorphone 100 ng/mL Methadone Metabolite 100 ng/mL Morphine / Codeine 300 ng/mL Oxycodone / Oxymorphone 100 ng/mL Screening results are presumptive and can only be used for medical purposes. Positive screening results are reflexed to confirmatory testing. *Note: Due to a large number of results and/or encounters for the requested time period, some results have not been displayed. A complete set of results can be found in Results Review. Patient Phone Numbers Labs: Lab Results Component Value Date/Time CREAT 0.56 (A) 01/08/2023 12:00 AM CREAT 0.8 05/13/2020 04:15 PM POTASSIUM 3.1 (A) 01/08/2023 12:00 AM POTASSIUM 3.8 05/13/2020 04:15 PM TSH 1.08 06/13/2019 12:12 PM LDLCALC 105 05/01/2021 01:03 PM LDLCALC 72 11/19/2008 10:10 AM ALT 22 05/13/2022 11:54 AM ALT 19 09/05/2020 04:06 PM HGBA1C 5.4 05/01/2021 01:03 PM documented in this encounter Plan of Treatment Upcoming Encounters Date Type Department Care Team (Late st Contact Info) Description 01/24/2024 4:00 PM EDT Telemedicine Psychiatry, [facility] [address] [place] [id number] Lester Serna CRNP [address] [place] [id number] 02/09/2024 12:20 PM EDT Office Visit Family Practice [facility] [address] [place] [address] Giovany Correa DO [address] [place] [id number] Health Maintenance Due Date Last Done Comments Albumin/Creatinine Ratio 1991 Zoster Vaccines (1 of 2) 1992 HPV/Co-Test 2003 Hepatitis B (2 of 3 - 19+ 3-dose series) 08/28/2010 07/31/2010 Mammogram 09/11/2016 09/11/2015 Cervical Cancer Screening 01/28/2018 Pap Smear 01/28/2018 01/28/2015, 06/0 03/2015, 12/21/2012, Additional history exists Cologuard 2018 [...] the patient have Health Care Power of Perinatal Social Worker? No Code Status History Code Status Date [...] the patient have Health Care Power of Perinatal Social Worker? No Care Teams Design Studio Consultant Relationship Specialty Start Date End Date Giovany Correa DO [address] [place] [id number] PCP - General Family Medicine 10/30/20 documented as of this encounter
--- OUTSIDE RECORDS SUMMARY | 2023-11-06 02:41 | External Medical Summary | Summary of Care ---
Author Name Unknown Organization [facility] Address [address] [facility] [place] [address] Phone [phone] Care Team Providers Care Fire Control Technician G Name Role Phone Giovany Correa Primary Care Provider Reason for Visit * Reason Comments Medication Management * - Authorized Specialty Diagnoses / Procedures Referred By Coco newman Referred To Contact Referral ID Status Reason Start Date Expiration Date V isits Requested Visits Authorized [id number] Authorized 02/20/2023 02/19/2024 [id number] Encounter Details Date Type Department Care Team (Late st Contact Info) Description 10/25/2023 4:00 PM [facility] [address] [facility] [place] [address] Lester Serna CRNP [address] [facility] [place] [address] Major depressive disorder, recurrent episode, moderate (HCC)*; PTSD (post-traumatic stress disorder); History of ADHD Allergies No known active allergiesdocumented as of this encounter (statuses as of 10/25/2023) Medications Medication Sig Dispensed Refills Start Date End Date Status OSCAL 500/200 D-3 500-200 MG-UNIT PO TABSIndications:Environmental Monitoring Specialist hn's disease of colon (HCC) one tab [...] 07/31/2010 Active MUCINEX D 120-1200 MG PO [id number]:Chr onic rhinitis,Other chronic sinusitis,Hypertrop hy of nasal [...] once daily 90 Capsule 2 02/19/2023 Active Diphenoxylate-Atrop ine 2.5-0.025 MG Oral Tablet (Lomotil) TAKE 1 TABLET BY MOUTH DAILY NEEDED FOR DIARRHEA 30 Tablet 5 03/29/2023 Active Diclofenac Sodium 1 % External Gel [...] Stelara 90 MG/ML Subcutaneous Solution Prefilled Syringe (UsUnyqe) INJECT 1 SYRINGE UNDER THE SKIN EVERY 8 WEEKS. REFRIGERATE. DO NOT FREEZE. 1 mL 6 08/03/2023 Active Gabapentin 300 MG Oral Capsule (Neurontin) Take 1 Capsule by mouth 2 times a day in the morning and at noon. 60 Capsule 1 09/21/2023 Active Gabapentin 600 MG Oral Tablet (Neurontin) Take 1 Tablet by mouth at bedtime. 30 Tablet 1 09/21/2023 Active Hospital, Clinic, or Other Facility Administered Medication Ordered Dose Route Frequency Start Date End Date Status albuterol sulfate (PROVENTIL) (2.5 MG/3ML) 0.083% inhalation solution 2.5 mgIndications:ESCOBEDO (dyspnea on exertion) 2.5 mg NEBULIZER PRN 11/15/2019 Act ran documented as of this encounter (statuses as of 10/25/2023) Active Problems Problem Noted Date Diagnosed Date [...] as of this encounter (statuses as of 10/25/2023) Resolved Problems Problem Noted Date Diagnosed Date [...] as of this encounter (statuses as of 10/25/2023) Immunizations Name Administration Dates Next Due COVID-19 [...] No 10/12/2020 documented as of this encounter Progress Notes * Lester Serna CRNP - 10/25/2023 4:06 PM EST Patient Location: HOME. After connecting through [employer], patient was verified with two unique identifiers. 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 Methods to assure confidentiality were taken. Patient acknowledged consent and understanding of privacy and security of the Telemedicine visit. The patient agreed to participate. PSYCHOTHERAPY & MEDICATION MANAGEMENT RETURN VISIT NOTE PsychiatryMarla [address] [facility] [place] [address] 10/25/2023 Keiry Cruz CHIEF COMPLAINT: Depression INTERVAL HISTORY: Keiry Cruz is a 48 year old female presenting today for a follow-up appointment. Pt reports since last appt "I would actually say that I feel like I'm good, that I feel like my medicines are right where they should be and I think they're helping me.. I've been being more sociable, I've been going out with friends, I went on a date. That hasn't happened in 9 years, so that's a big deal.. it seems to help my mental state a lot, especially when I'm not working." Being withdrawn to home "is not good for my mental health, obviously." The more she gets out of the home "the betterI feel.. my ups and downs coincide with my physical health" which also makes it harder for her to get out of the home. "I really do think the medications are doing a large part of helping me." She had issues with her insurance and it was just reinstated today. She had to transfer her scriptsaway from [facility] which closed, and [place] reverted some of the changes and exceptions that were put in place during COVID. "It had actually been inactive for a short period of time." She denies any particular concerns today, and would like to maintain her current medication regimen. MEDICATION SIDE EFFECTS: denies OBJECTIVE DATA: COLUMBIA-SUICIDE SEVERITY RATING SCALE Have you ever wished that you were , or not alive anymore? yes Have you actually had thoughts about killing yourself? denies Have you been thinking about how you might do this? denies Have you had these thoughts and had some intention of acting on them? denies Have you started to work out or worked out the details of how to kill yourself? denies Do you intend to carry out this plan? denies Have you done anything, started to do anything, or prepared to do anything to end your life? denies Low Risk: Reviewed a crisis plan with patient including calling the suicide hotline, calling their local crisis number, using the crisis text line, or calling the department of psychiatry phone number. Discussed risks/protective factors and reasons for living. Crisis Plan Step 1: Signs that I am doing worse: Social withdrawal, lying to others about how she's doing Step 2: Internal Coping Strategies: Things I can do to take my mind off my problems without contacting another person: Taking care of pets (5 dogs), affection from pets Step 3: People and social settings that provide distraction or whom I can ask for help (name, phonenumber and place): Mother Step 4: Keeping the environment safe: Plan for restricting access to lethal means (firearms, medications). Lives alone "I would never ever kill myself.. I feel like my home is a safe space for me. I really feel like if it ever got bad I would get help, to [place] or [place] somewhere" Step 5: Professionals or agencies I can contact during a crisis (clinician name and phone number): Additional Professional Resources: 1. Local Crisis Services: For [facility] and [facility] call TAPLine at . [facility] Emergency Number: 2. [facility] Division of Psychiatry: [phone] 3. National Suicide Prevention Lifeline: 988 4. National Crisis Text Line: Text HOME to 854284 5. 250 or proceed to the nearest emergency room (Safety Plan Treatment Manual to Reduce Suicide Risk: Version (Femi & Harrison, 2008)) ROS EXAM: Negative except as described above SUBSTANCE USE: Struggling to quit smoking cigarettes RELEVANT CHANGES IN PAST PSYCHIATRIC, MEDICAL, FAMILY OR SOCIAL HX: As described above CURRENT MEDS: Current Outpatient Medications Medication Sig Dispense Refill OSCAL 500/200 D-3 500-200 MG-UNIT PO TABS one tab once a day (Patient taking differently: at bedtime.) 30 5 FISH OIL 1000 MG PO CAPS 1 tab by mouth daily in the evening 0 NASAL SALINE 0.65 % NA SOLN flush each nostril morning and night and every 2-4 hrs as needed for nasal dryness or congestion 1 Bottle 4 MUCINEX D 120-1200 MG PO TB12 1 TABLET EVERY 12 HOURS NEEDED FOR NASAL CONGESTION (Patient not taking: Reported on 06/30/2022) 30 Tab 3 Albuterol Sulfate HFA 108 (90 Base) MCG/ACT Inhalation Aerosol Solution inhale 2 puffs by mouth andINTO THE LUNGS four times a day 18 g 3 traMADol HCl 50 MG Oral Tablet (Ultram) Take 1 Tab by mouth every 6 hours as needed (pain not controlled with tylenol). 5 Tab 0 Fluticasone Propionate 50 MCG/ACT Nasal Suspension (Flonase) instill 2 sprays into each nostril once daily 48 g 3 Multi-Day Oral Tablet Take 1 Tablet by mouth every evening. Melatonin 5 MG Oral Capsule Take 1 Capsule by mouth at bedtime. Azelastine HCl 137 MCG/SPRAY Nasal Solution instill 2 sprays into each nostril twice a day 30 mL 5 Potassium Chloride ER 10 MEQ Oral Tablet Extended Release Take 2 Tablets by mouth in the morning. oxyCODONE HCl 5 MG Oral Capsule (Oxy IR) Take 1 Capsule by mouth every 4 hours as needed. Amoxicillin-Pot Clavulanate 875-125 MG Oral Tablet Take 1 Tablet by mouth in the morning and 1 Tablet before bedtime. Potassium Chloride ER 10 MEQ Oral Capsule Extended Release take 1 capsule by mouth once daily 90 Capsule 2 Diphenoxylate-Atropine 2.5-0.025 MG Oral Tablet (Lomotil) TAKE 1 TABLET BY MOUTH DAILY NEEDED FOR DIARRHEA 30 Tablet 5 Diclofenac Sodium 1 % External Gel (Voltaren) apply 4 grams to affected area three times a day NEEDED FOR PAIN APPLY TO ELBOW 350 g 3 predniSONE 5 MG Oral Tablet (Deltasone) Take 1 Tablet by mouth in the morning. 7 Tablet 0 buPROPion HCl 75 MG Oral Tablet (Wellbutrin) Take 2 Tablets by mouth 2 times a day in the morning and at noon. 120 Tablet 1 FLUoxetine HCl 40 MG Oral Capsule (PROzac) Take 2 Capsules by mouth in the morning. In the morning.. 60 Capsule 2 Pantoprazole Sodium 40 MG Oral Tablet Delayed Release (Protonix) take 1 tablet by mouth once daily 90 Tablet 1 LORazepam 0.5 MG Oral Tablet (Ativan) Take 1 Tablet by mouth in the morning and 1 Tablet at noon and 1 Tablet before bedtime. 90 Tablet 0 Amphetamine-Dextroamphetamine 5 MG Oral Tablet (Adderall) Take 1 Tablet by mouth 2 times a day in the morning and at noon. 60 Tablet 0 Stelara 90 MG/ML Subcutaneous Solution Prefilled Syringe (Pinguo) INJECT 1 SYRINGE UNDER THE SKIN EVERY 8 WEEKS. REFRIGERATE. DO NOT FREEZE. 1 mL 6 Gabapentin 300 MG Oral Capsule (Neurontin) Take 1 Capsule by mouth 2 times a day in the morning andat noon. 60 Capsule 1 Gabapentin 600 MG Oral Tablet (Neurontin) Take 1 Tablet by mouth at bedtime. 30 Tablet 1 Current Facility-Administered Medications Medication Dose Route Frequency Provider Last Rate Last Admin albuterol sulfate (PROVENTIL) (2.5 MG/3ML) 0.083% inhalation solution 2.5 mg 2.5 mg Nebulizer PRN Micah Rodriguez MD ALLERGIES: Review of patient's allergies indicates: No Known Allergies RECENT LABORATORY DATA: none MENTAL STATUS EXAMINATION: Appearance: age-appropriate and casually dressed Muscle strength/tone and motor behavior: normal muscle strength and tone Gait and Station: no abnormalities noted and not tested Personal Presentation: candid and cooperative. Speech: normal, rate, tone and volume Mood: positive Affect: type - euthymic; range - full range; lability - no Associations: intact Thought Process: goal directed Abstract Reasoning: intact Thought Content: suicidal ideation denies plan, intent. Recovering from recent exacerbation of depression and loss of father Orientation: alert and oriented to person, place, time and situation Recent and remote memory as evidenced by recall of recent circumstances and remote life events: intact Language as evidenced by ability to repeat phrase and name object: intact Fund of knowledge as evidenced by vocabulary and current/historical events: intact Attention span/concentration as evidenced by: ability to sustain attention to examiner - intact andfollowing conversation - intact Insight: good Judgment: impaired due to recent severe exacerbation of depression symptoms FORMULATION: Keiry Cruz is a 48 year old female with presenting symptoms of depression, anxiety, PTSD. Symptoms started in adolescence. Denies hx SA, inpatient, D&A. Raised by mother and father. 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 Lives alone, never or children. Struggles chronically with Crohn's Disease. ASSESSMENT - DIAGNOSIS: - Major depressive disorder, recurrent, moderate - PTSD - ADHD by history TREATMENT PLAN: - Continue Adderall IR 5mg BID, Prozac 80mg Daily, Ativan 0.5mg TID PRN, Wellbutrin 150mg BID, Gabapentin 300mg morning and afternoon with 600mg HS - Pt using Gabapentin and Lorazepam inconsistently for management of neuropathic pain, RLS, and sleep. Will make efforts to optimize Gabapentin dosing and slowly wean Lorazepam moving forward - Encourage continued followup with therapy thru [facility], encourage exploring ACT therapy - Risks/benefits of currently prescribed psychiatric medications discussed, verbalized understanding - I have reviewed the patients controlled substance dispensing history in the Prescription Drug Monitoring Program in compliance with the [facility] regulations before prescribing a controlled substance. Crisis Planning: Keiry Cruz has been provided with Psychiatry emergency telephone numbers, including crisis number, text suicide hotline and suicide hotline. The crisis plan was reviewed and updated if necessary based on the information above. Side effects of the medication were explained, and the patient understands the risks and benefits of using the medication.Patient cautioned not to drive, operate heavy machinery, or participate in other tasks requiring full cognitive alertness untilthey know how new medications will affect them. Pt encouraged to keep all medications out of the reach of children. Psychoeducation was provided. Discussed risks, expected benefits, and potential adverse effects from these medications. The benefits outweigh the risks.The patient participated in thedevelopment of the treatment plan, verbalized understanding, voices no concerns and is agreeable tothe treatment plan. Risk Assessment: Risk assessment was performed for Keiry Cruz. This is a patient being treated for chronic mental health conditions as characterized above; at the time of this visit, there was no indication that this patient was either a risk to self, others, or gravely disabled by symptoms of a mental illness. At the time of this evaluation, there were enough protective factors in place and it was deemed safe to continue with treatment on a outpatient basis with return to clinic in the timeframe described above. Health Maintenance: Keiry Cruz was encouraged to keep up to date on regular health maintenance per her primary care provider. Encouraged to keep active in productive hobbies and exercise. This helps manage emotions, improve sleep, wellbeing and overall health. Pt was cautioned to not drink alcohol or use illicit drugs as these can make mood symptoms worse by blocking the effects of prescribed medications. Avoid tobacco, which contains nicotine. Limit caffeine use. Caffeine and Nicotine are stimulants that can cause difficulty with sleep. Lack of sleep can then worsen anxiety and depression. Return in 3 months or sooner as needed. Time Spent on Visit total: 15 minutes - including preparing to see the patient, reviewing history, performing evaluation, counseling/educating patient, ordering medications/tests, documenting clinical information. CLEMENT Miller, THIERRY, PMHNP- Nurse Practitioner - Outpatient Psychiatry [facility] [place] 10/25/2023 documented in this encounter Plan of Treatment Upcoming Encounters Date Type Department Care Team (Late st Contact Info) Description 01/24/2024 4:00 PM EDT Telemedicine Psychiatry, [facility] [address] [place] [address] Lester Serna CRNP [address] [place] [address] 02/09/2024 12:20 PM EDT Office Visit Family Practice [facility] [address] [place] [address] Giovany Correa DO [address] [place] [address] Health Maintenance Due Date Last Done Comments Albumin/Creatinine Ratio 1991 Zoster Vaccines (1 of 2) 1992 HPV/Co-Test 2003 Hepatitis B (2 of 3 - 19+ 3-dose series) 08/28/2010 07/31/2010 Mammogram 09/11/2016 09/11/2015 Cervical Cancer Screening 01/28/2018 Pap Smear 01/28/2018 01/28/2015, 0603/2015, 12/21/2012, Additional history exists Cologuard 2018 Fecal [...] Not on filedocumented as of this encounter Visit Diagnoses Diagnosis Major depressive disorder, recurrent episode, moderate (HCC)- Primary Major depressive disorder, recurrent episode, moderate PTSD (post-traumatic stress disorder) Posttraumatic stress disorder History of ADHD Personal history of other mental disorder documented in this encounter Advance Directives Latest Code Status on File Code Status Date Activated Date Inactivated Comments Full Code 10/13/2020 12:38 PM 10/20/2020 5:31 PM This order reflects the patients wishes and were consensually agreed upon. Question Answer Comments Discussion of Advance Directives occurred with: Not Discussed Does the patient have a Living Will? No Does the patient have Health Care Power of Certified Medical Aide? No Code Status History Code Status Date [...] the patient have Health Care Power of Certified Medical Aide? No Care Teams Fire Control Technician G Relationship Specialty Start Date End Date Giovany Correa DO [address] [place] [address] PCP - General Family Medicine 10/30/20 documented as of this encounter
--- OUTSIDE RECORDS SUMMARY | 2023-11-06 02:41 | External Medical Summary | Summary of Care ---
Author Name Unknown Organization [facility] Address [address] [facility] [place] [address] Phone [phone] Care Team Providers Care Local Tanker Truck Driver Name Role Phone Giovany Correa Primary Care Provider Reason for Visit * Reason Onset Date Comments Pre Cert/Prior Auth 09/29/2023 Encounter Details Date Type Department Care Team (Late st Contact Info) Description 09/29/2023 Telephone Gastroenterology, [facility] [address] [facility] [place] [address] Cheryl Rowley MD 132 [facility] [place] [address] Pre Cert/Prior Auth Allergies No known active allergiesdocumented as of this encounter (statuses as of 10/07/2023) Medications Medication Sig Dispensed Refills Start Date End Date Status OSCAL 500/200 D-3 500-200 MG-UNIT PO TABSIndications:Retinal Surgeon hn's disease of colon (HCC) one tab [...] 07/31/2010 Active MUCINEX D 120-1200 MG PO [id number]:Chr onic rhinitis,Other chronic sinusitis,Hypertrop hy of nasal [...] Stelara 90 MG/ML Subcutaneous Solution Prefilled Syringe (SLIC games) INJECT 1 SYRINGE UNDER THE SKIN EVERY [...] as of this encounter (statuses as of 10/07/2023) Active Problems Problem Noted Date Diagnosed Date [...] as of this encounter (statuses as of 10/07/2023) Resolved Problems Problem Noted Date Diagnosed Date [...] as of this encounter (statuses as of 10/07/2023) Immunizations Name Administration Dates Next Due COVID-19 mRNA, LNP-s, No Pre serve, 2-Dose Series (Moderna) 09/14/2020 COVID-19 mRNA, LNP-s, No Pre serve, 2-Dose Series (Pfizer) 11/15/2020 Hepatitis B, 20+ yrs 07/31/2010 PPD 03/18/2016, 4,06/12/2013,05/29,10/04/2012,04/21/2011,04/21/2010 ,03/26/2009,05/27/2007,06/08/2006,05/23 Pneumococcal Conjugate Vacc, 13 Valent (Prevnar) 02/08/2020 [...] encounter Miscellaneous Notes * Telephone Encounter - Girish Ulrich RPh - 10/07/2023 8:51 AM EST Second message left * Telephone Encounter - Girish Ulrich RPh - 09/29/2023 12:33 PM EST On review, it appears patient's insurance termed. Patient was marked as a no show for the provider appointment yesterday. I attempted to contact patient. No answer, left message to return call to clinic at earliest convenience. Girish Ulrich RPh Clinical Pharmacist, Gastroenterology 09/29/2023,12:34 PM documented in this encounter Plan of Treatment Upcoming Encounters Date Type Department Care Team (Late st Contact Info) Description 10/13/2023 1:45 PM EST Office Visit Orthopaedics [facility] [address] [place] [address] Sumi Mg MD [address] [place] [address] 10/25/2023 4:00 PM EST Telemedicine Psychiatry, [facility] [address] [place] [address] Lester Serna CRNP [address] [place] [address] 02/09/2024 12:20 PM EDT Office Visit Family Practice [facility] [address] [place] [address] Giovany Correa DO [address] [place] [address] Health Maintenance Due Date Last Done Comments Albumin/Creatinine Ratio 1991 Zoster Vaccines (1 of 2) 1992 HPV/Co-Test 2003 Hepatitis B (2 of 3 - 19+ 3-dose series) 08/28/2010 07/31/2010 Mammogram 09/11/2016 09/11/2015 Cervical Cancer Screening 01/28/2018 Pap Smear 01/28/2018 01/28/2015, 03/2015, 12/21/2012, Additional history exists Cologuard 2018 Fecal Occult Blood Test 2018 Sigmoidoscopy 2018 COVID-19 Vaccine (3 - Mixed Product risk series) 12/13/2020 11/15/2020, 09/14/2020 Pneumococcal Vaccine: Pediatrics (0 to 5 Years) and At-Risk Patients (6 to 64 Years) (3 - PPSV23 or PCV20) 02/07/2021 02/08/2020, 12/19/2009 Depression, Most Recent Score >= 10 (will [...] the patient have Health Care Power of Pouncing Lathe Operator? No Code Status History Code Status Date [...] the patient have Health Care Power of Pouncing Lathe Operator? No Care Teams Local Tanker Truck Driver Relationship Specialty Start Date End Date Giovany Correa DO [address] [place] [address] PCP - General Family Medicine 10/30/20 documented as of this encounter
--- OUTSIDE RECORDS SUMMARY | 2023-11-06 02:41 | External Medical Summary | Summary of Care ---
Author Name Unknown Organization [facility] Address [address] [facility] [place] [address] Phone [phone] Care Team Providers Care Build Technician Name Role Phone Giovany Correa Primary Care Provider Reason for Visit * Reason Onset Date Comments Pre Cert/Prior Auth 09/29/2023 Encounter Details Date Type Department Care Team (Late st Contact Info) Description 09/29/2023 Telephone Gastroenterology, [facility] 132 [facility] [place] [address] Cheryl Rowley MD 132 [facility] [place] [address] Pre Cert/Prior Auth Allergies No known active allergiesdocumented as of this encounter (statuses as of 10/21/2023) Medications Medication Sig Dispensed Refills Start Date End Date Status OSCAL 500/200 D-3 500-200 MG-UNIT PO TABSIndications:Heat Treating Furnace Tender hn's disease of colon (HCC) one tab [...] 07/31/2010 Active MUCINEX D 120-1200 MG PO [id number]:Chr onic rhinitis,Other chronic sinusitis,Hypertrop hy of nasal [...] Stelara 90 MG/ML Subcutaneous Solution Prefilled Syringe ([employer]) INJECT 1 SYRINGE UNDER THE SKIN EVERY [...] as of this encounter (statuses as of 10/21/2023) Active Problems Problem Noted Date Diagnosed Date [...] as of this encounter (statuses as of 10/21/2023) Resolved Problems Problem Noted Date Diagnosed Date [...] as of this encounter (statuses as of 10/21/2023) Immunizations Name Administration Dates Next Due COVID-19 [...] Notes * Telephone Encounter - Girish Ulrich [facility] - 10/21/2023 9:21 AM EST Attempted to contact again with no answer. myChart sent Electronically signed by Girish Ulrich [facility] at 10/21/2023 9:22 AM EST * Telephone Encounter - Girish Ulrich [facility] - 10/07/2023 8:51 AM EST Second message left Electronically signed by Girish Ulrich [facility] at 10/07/2023 8:51 AM EST * Telephone Encounter - Girish Ulrich [facility] - 09/29/2023 12:33 PM EST On review, it appears patient's insurance termed. Patient was marked as a no show for the provider appointment yesterday. I attempted to contact patient. No answer, left message to return call to clinic at earliest convenience. Girish Ulrich [facility] Clinical Pharmacist, Gastroenterology 09/29/2023,12:34 PM Electronically signed by Girish Ulrich [facility] at 09/29/2023 12:34 PM EST documented in this encounter Plan of Treatment Upcoming Encounters Date Type Department Care Team (Late st Contact Info) Description 10/25/2023 4:00 PM EST Telemedicine Psychiatry, [facility] [address] [place] [address] Lester Serna CRNP [address] [place] [address] 02/09/2024 12:20 PM EDT Office Visit Family Practice [facility] [address] [place] [address] Giovany Correa DO [address] [place] [address] Health Maintenance Due Date Last Done Comments [...] the patient have Health Care Power of Road Contractor? No Code Status History Code Status Date [...] the patient have Health Care Power of Road Contractor? No Care Teams Build Technician Relationship Specialty Start Date End Date Giovany Correa DO [address] [place] [address] PCP - General Family Medicine 10/30/20 documented as of this encounter
--- OUTSIDE RECORDS SUMMARY | 2023-11-06 02:41 | External Medical Summary | Summary of Care ---
Author Name Unknown Organization [facility] Address [address] [facility] [place] [address] Phone [phone] Care Team Providers Care Sales Executive Name Role Phone Giovany Correa Primary Care Provider Reason for Visit * Reason Onset Date Comments Pre Cert/Prior Auth 09/29/2023 Encounter Details Date Type Department Care Team (Late st Contact Info) Description 09/29/2023 Telephone Gastroenterology, [facility] 132 [facility] [place] [address] Cheryl Rowley MD 132 [facility] [place] [address] Pre Cert/Prior Auth Allergies No known active allergiesdocumented as of this encounter (statuses as of 10/25/2023) Medications Medication Sig Dispensed Refills Start Date End Date Status OSCAL 500/200 D-3 500-200 MG-UNIT PO TABSIndications:Electronic Specialist hn's disease of colon (HCC) one [...] 07/31/2010 Active MUCINEX D 120-1200 MG PO [id number]:Chr onic rhinitis,Other chronic sinusitis,Hypertrop hy of nasal [...] Stelara 90 MG/ML Subcutaneous Solution Prefilled Syringe ([employer]) INJECT 1 SYRINGE UNDER THE SKIN EVERY [...] Notes * Telephone Encounter - Girish Ulrich RP - 10/25/2023 11:06 AM EST myChart was not read. I attempted to contact patient again via phone with no answer. It appears patient now has P Family active. * Telephone Encounter - Girish Ulrich [facility] - 10/21/2023 9:21 AM EST Attempted to contact again with no answer. myChart sent * Telephone Encounter - Girish Ulrich [facility] - 10/07/2023 8:51 AM EST Second message left * Telephone Encounter - Girish Ulrich [facility] - 09/29/2023 12:33 PM EST On review, it appears patient's insurance termed. Patient was marked as a no show for the provider appointment yesterday. I attempted to contact patient. No answer, left message to return call to clinic at earliest convenience. Girish Ulrich [facility] Clinical Pharmacist, Gastroenterology 09/29/2023,12:34 PM documented in this encounter Plan of Treatment Upcoming Encounters Date Type Department Care Team (Late st Contact Info) Description 10/25/2023 4:00 PM EST Telemedicine Psychiatry, [facility] [address] [place] [address] Lester Serna CRNP [address] [place] [address] 02/09/2024 12:20 PM EDT Office Visit Family Practice [facility] [address] [place] [address] Giovany Correa, [address] [place] [address] Health Maintenance Due Date Last Done Comments [...] the patient have Health Care Power of Strategic Intelligence Officer? No Code Status History Code Status Date [...] the patient have Health Care Power of Strategic Intelligence Officer? No Care Teams Sales Executive Relationship Specialty Start Date End Date Giovany Correa DO 132 [place] [address] PCP - General Family Medicine 10/30/20 documented as of this encounter
--- OUTSIDE RECORDS SUMMARY | 2023-11-06 02:41 | External Medical Summary | Summary of Care ---
Author Name Unknown Organization [facility] Address [address] [facility] [place] [address] Phone [phone] Care Team Providers Care Burn Nurse Name Role Phone Giovany Correa Primary Care Provider Reason for Visit * Reason Onset Date Comments Pre Cert/Prior Auth 09/29/2023 Encounter Details Date Type Department Care Team (Late st Contact Info) Description 09/29/2023 Telephone Gastroenterology, [facility] 132 [facility] [place] [address] Cheryl Rowley MD 132 [facility] [place] [address] Pre Cert/Prior Auth Allergies No known active allergiesdocumented as of this encounter (statuses as of 10/25/2023) Medications Medication Sig Dispensed Refills Start Date End Date Status OSCAL 500/200 D-3 500-200 MG-UNIT PO TABSIndications:Agricultural Inspector hn's disease of colon (HCC) one tab [...] 07/31/2010 Active MUCINEX D 120-1200 MG PO [id number]:Chr onic rhinitis,Other chronic sinusitis,Hypertrop hy of nasal [...] Stelara 90 MG/ML Subcutaneous Solution Prefilled Syringe ([employer]) INJECT 1 SYRINGE UNDER THE SKIN EVERY [...] It appears patient now has P Family active again. * Telephone Encounter - Girish Ulrich [facility] - 10/21/2023 9:21 AM EST Attempted to contact again with no answer. myChart sent * Telephone Encounter - Girish Ulrich [facility] - 10/07/2023 8:51 AM EST Second message left * Telephone Encounter - Girish Ulrich [facility] - 09/29/2023 12:33 PM EST On review, it appears patient's insurance termed. Patient was marked as a no show for the provider appointment yesterday. I attempted to contact patient. No answer, left message to return call to clinic at earliest convenience. Girish Ulrich [facility] Clinical Pharmacist, Gastroenterology 09/29/2023,12:34 PM documented in this encounter Plan of Treatment Upcoming Encounters Date Type Department Care Team (Late st Contact Info) Description 10/25/2023 4:00 PM EST Telemedicine Psychiatry, [facility] [address] [place] [address] Lester Serna CRNP [address] [place] [address] 02/09/2024 12:20 PM EDT Office Visit Family Practice [facility] [address] [place] [address] Giovany Correa, [address] [place] [address] Health Maintenance Due Date Last Done Comments [...] the patient have Health Care Power of Development Vice President? No Code Status History Code Status Date [...] the patient have Health Care Power of Development Vice President? No Care Teams Burn Nurse Relationship Specialty Start Date End Date Giovany Correa DO 132 [place] [address] PCP - General Family Medicine 10/30/20 documented as of this encounter
--- OUTSIDE RECORDS SUMMARY | 2023-11-06 02:41 | External Medical Summary | Summary of Care ---
Author Name Unknown Organization [facility] Address [address] [place] [address] Phone [phone] Care Team Providers Care Crime Scene Investigator Name Role Phone Giovany Correa Primary Care Provider Reason for Visit * Reason Onset Date Comments Med Request 07/21/2023 Encounter Details Date Type Department Care Team (Late st Contact Info) Description 07/21/2023 Telephone Gastroenterology, [facility] 132 [facility] [place] [address] Services, Scheduling [address] [place] [address] Med Request Allergies No known active allergiesdocumented as of this encounter (statuses as of 10/20/2023) Medications Medication Sig Dispensed Refills Start Date End Date Status OSCAL 500/200 D-3 500-200 MG-UNIT PO TABSIndications:Separator Tender hn's disease of colon (HCC) one [...] 07/31/2010 Active MUCINEX D 120-1200 MG PO [id number]:Chr onic rhinitis,Other chronic sinusitis,Hypertrop hy of nasal [...] once daily 90 Tablet 1 06/25/2023 Active Hospital, Clinic, or Other Facility Administered Medication Ordered Dose Route Frequency Start Date End Date Status albuterol sulfate (PROVENTIL) (2.5 MG/3ML) 0.083% inhalation solution 2.5 mgIndications:ESCOBEDO (dyspnea on exertion) 2.5 mg NEBULIZER PRN 11/15/2019 Act ran documented as of this encounter (statuses as of 10/20/2023) Active Problems Problem Noted Date Diagnosed Date [...] as of this encounter (statuses as of 10/20/2023) Resolved Problems Problem Noted Date Diagnosed Date Resolved Date Current mild episode of mai r depressive disorder without prior episode 10/31/2019 2 Crohn's disease of small int estine with [...] as of this encounter (statuses as of 10/20/2023) Immunizations Name Administration Dates Next Due COVID-19 [...] encounter Miscellaneous Notes * Telephone Encounter - Jeannette Redd OSA - 07/21/2023 12:29 PM EST Pt called to confirm that she does use [facility] and Stelara needs sent there documented in this encounter Plan of Treatment Upcoming Encounters Date Type Department Care Team (Late st Contact Info) Description 10/25/2023 4:00 PM EST Telemedicine Psychiatry, [facility] [address] [place] [address] Lester Serna CRNP [address] [place] [address] 02/09/2024 12:20 PM EDT Office Visit Family Practice [facility] [address] [place] [address] Giovany Correa DO [address] [place] [address] Health Maintenance Due Date Last Done Comments [...] the patient have Health Care Power of Crop Roller? No Code Status History Code Status Date [...] the patient have Health Care Power of Crop Roller? No Care Teams Crime Scene Investigator Relationship Specialty Start Date End Date Giovany Correa DO [address] [place] [address] PCP - General Family Medicine 10/30/20 documented as of this encounter
--- OUTSIDE RECORDS SUMMARY | 2023-11-06 02:42 | External Medical Summary | Summary of Care ---
Author Name Unknown Organization [facility] Address [address] [facility] [place] [address] Phone [phone] Care Team Providers Care Videotape Operator Name Role Phone Giovany Correa DO Primary Care Provider Reason for Visit * Reason Onset Date Comments Medication Refill 09/20/2023 Encounter Details Date Type Department Care Team (Late st Contact Info) Description 09/20/2023 Refill Family Practice [facility] [address] [place] [address] Giovany Correa DO 132 [facility] [place] [address] Encounter for long-term (current) use of medications* Allergies No known active allergiesdocumented as of this encounter (statuses as of 09/24/2023) Medications Medication Sig Dispensed Refills Start Date End Date Status OSCAL 500/200 D-3 500-200 MG-UNIT PO TABSIndications:Receptionist Nurse hn's disease of colon (HCC) one tab [...] 07/31/2010 Active MUCINEX D 120-1200 MG PO [id number]:Chr onic rhinitis,Other chronic sinusitis,Hypertrop hy of nasal [...] Stelara 90 MG/ML Subcutaneous Solution Prefilled Syringe ([employer]) INJECT 1 SYRINGE UNDER THE SKIN EVERY [...] as of this encounter (statuses as of 09/24/2023) Active Problems Problem Noted Date Diagnosed Date [...] as of this encounter (statuses as of 09/24/2023) Resolved Problems Problem Noted Date Diagnosed Date [...] as of this encounter (statuses as of 09/24/2023) Immunizations Name Administration Dates Next Due COVID-19 [...] encounter Miscellaneous Notes * Telephone Encounter - Jocy Henao [facility] - 09/24/2023 12:39 PM EST I spoke with patient She had a lapse in her insurance and had stopped taking her potassium When she was discharge from [facility] in April, she was re-started on it at a higher dose, but has not taken it since. I advise patient she should have lab repeated to see where her level is at so we know what dose to restart her on. Patient verbalized understanding. Thank You, Jocy Henao [facility] Clinical Pharmacist [facility] ([facility]) (formerly Telepharmacy) [phone] 09/24/2023, 12:41 PM * Telephone Encounter - Jocy Henao RP - 09/22/2023 5:39 AM ESTRefused Prescriptions: Disp Refills Potassium Chloride ER 10 MEQ Oral Capsule *90 Cap*2 Sig: Take 1Capsule by mouth in the morning.Refused By: JOCY HENAO LReason for Refusal: Dose needs clarificat ion * Telephone Encounter - Jocy Henao [facility] - 09/22/2023 5:26 AM EST Images from the original note were not included. Per 05/13/24 [facility] discharge summary: Patient has not had lab completed since nor has filled medication since Recommend to repeat BMP to assess appropriate dose. Lab ordered an patient notified via [employer] response message to refill reuqest Thank You, Jocy Henao [facility] Clinical Pharmacist [facility] ([facility]) (formerly Telepharmacy) [phone] 09/22/2023, 5:32 AM documented in this encounter Plan of Treatment Upcoming Encounters Date Type Department Care Team (Late st Contact Info) Description 09/28/2023 2:40 PM EST Office Visit Gastroenterology, [facility] [address] [place] [address] Cheryl Rowley MD [address] [place] [address] 10/05/2023 8:30 AM EST Imaging Radiology [facility] 1st Floor, [place] [address] [place] [address] 10/13/2023 1:45 PM EST Office Visit Orthopaedics [facility] [address] [place] [address] Sumi Mg MD [address] [place] [address] 10/25/2023 4:00 PM EST Telemedicine Psychiatry, [facility] [address] [place] [address] Lester Serna CRNP [address] [place] [address] 02/09/2024 12:20 PM EDT Office Visit Family Practice [facility] [address] [place] [address] Giovany Correa DO [address] [place] [address] Scheduled Orders Name Type Priority Associated Diagnoses Orde r Schedule BASIC METABOLIC PANEL Lab Routine Encounter for long-term (current) use of medications Expected: 09/22/2023 (Approximate), Expires: 09/22/2024 ALBUMIN / CREATININE RATIO, URINE Lab Routine Encounter for long-term (current) use of medications Expected: 09/22/2023 (Approximate), Expires: 09/22/2024 Health Maintenance Due Date Last Done Comments [...] as of this encounter Visit Diagnoses Diagnosis Encounter for long-term (current) use of medications- Primary Encounter for long-term (current) use of other medications documented in this encounter Advance Directives Latest [...] the patient have Health Care Power of Clinical Data Management Manager? No Code Status History Code Status Date [...] the patient have Health Care Power of Clinical Data Management Manager? No Care Teams Videotape Operator Relationship Specialty Start Date End Date Giovany Correa DO [address] [place] [address] PCP - General Family Medicine 10/30/20 documented as of this encounter
--- OUTSIDE RECORDS SUMMARY | 2023-11-06 02:42 | External Medical Summary | Summary of Care ---
Author Name Unknown Organization [facility] Address [address] [place] [address] Phone [phone] Care Team Providers Care Egg Processor Name Role Phone Giovany Correa Primary Care Provider Reason for Visit * Reason Onset Date Comments Medication Refill 09/20/2023 Encounter Details Date Type Department Care Team (Late st Contact Info) Description 09/20/2023 Refill Psychiatry, [place] [address] [place], [place] [id number] Mayelin Gonsalez MD [address] [place] [address] Allergies No known active allergiesdocumented as of this encounter (statuses as of 09/21/2023) Medications Medication Sig Dispensed Refills Start Date [...] 07/31/2010 Active MUCINEX D 120-1200 MG PO [id number]:Ch ronic rhinitis,Other chronic sinusitis,Hypertro phy of nasal [...] once daily 90 Capsule 2 02/19/2023 Active Diphenoxylate-Atro pine 2.5-0.025 MG Oral Tablet [...] Stelara 90 MG/ML Subcutaneous Solution Prefilled Syringe ([employer]) INJECT 1 SYRINGE UNDER THE SKIN EVERY 8 WEEKS. REFRIGERATE. DO NOT FREEZE. 1 mL 6 08/03/2023 Active Gabapentin 300 MG Oral Capsule (Neurontin) Take 1 Capsule by mouth 2 times a day in the morning and at noon. 60 Capsule 1 09/21/2023 Active Gabapentin 300 MG Oral Capsule (Neurontin) Take 1 Capsule by mouth 2 times a day in the morning and at noon. 60 Capsule 1 05/10/2023 4 Discontinue d(Refill) Gabapentin 600 MG Oral Tablet (Neurontin) Take 1 Tablet by mouth at bedtime. 30 Tablet 1 07/23/2023 4 Discontinue d(Refill) Hospital, Clinic, or Other Facility Administered Medication Ordered Dose Route Frequency Start Date End Date Status albuterol sulfate (PROVENTIL) (2.5 MG/3ML) 0.083% inhalation solution 2.5 mgIndications:ESCOBEDO (dyspnea on exertion) 2.5 mg NEBULIZER PRN 11/15/2019 Act ran documented as of this encounter (statuses as of 09/21/2023) Active Problems Problem Noted Date Diagnosed Date [...] as of this encounter (statuses as of 09/21/2023) Resolved Problems Problem Noted Date Diagnosed Date [...] as of this encounter (statuses as of 09/21/2023) Immunizations Name Administration Dates Next Due COVID-19 [...] encounter Miscellaneous Notes * Telephone Encounter - Lester Serna CRNP - 09/21/2023 9:37 AM ESTSigned Prescriptions: Disp Refills Gabapentin 300 MG Oral Capsule (Neurontin) 60 Cap*1 Sig: Take 1 Capsule by mouth 2 times a day in the morning and at noon. Authorizing Provider: LESTER SERNA * Telephone Encounter - Maye Araiza OSA - 09/21/2023 8:23 AM ESTPending Prescriptions: Disp Refills Gabapentin 300 MG Oral Capsule (Neurontin) 60 Cap*1 Sig: Take 1 Capsule by mouth 2 times a day in the morning and at noon. * Telephone Encounter - Maye Araiza OSA - 09/21/2023 8:22 AM EST Refill request from patient (Carroll) for Gabapentin 300mg. Medication last filled on 05/10/23 with 1 refills. Patient last seen on 08/04/23 with return appointment scheduled for 10/25/23. Patient had 0 cancelled appointments and 0 NO SHOW appointments. documented in this encounter Plan of Treatment Upcoming Encounters Date Type Department Care Team (Late st Contact Info) Description 09/28/2023 2:40 PM EST Office Visit Gastroenterology, [facility] [address] [place] [address] Cheryl Rowley MD 132 [place] [address] 10/05/2023 8:30 AM EST Imaging Radiology [facility] [address] [place] [address] 10/13/2023 1:45 PM EST Office Visit Orthopaedics [facility] [address] [place] [address] Sumi Mg MD [address] [place] [address] 10/25/2023 4:00 PM EST Telemedicine Psychiatry, [facility] [address] [place] [address] Lester Serna CRNP [address] [place] [address] 02/09/2024 12:20 PM EDT Office Visit Family Practice [facility] [address] [place] [address] Giovany Correa DO [address] [place] [address] Health Maintenance Due Date Last Done Comments [...] (FLU shot) (#1) 2023 GFR 01/09/2024 01/08/2023, 040 01/2022, 09/13/2021, Additional history exists Diabetes Screening [...] the patient have Health Care Power of Roofer Gypsum? No Code Status History Code Status Date [...] the patient have Health Care Power of Roofer Gypsum? No Care Teams Egg Processor Relationship Specialty Start Date End Date Giovany Correa DO [address] [place] [address] PCP - General Family Medicine 10/30/20 documented as of this encounter
--- OUTSIDE RECORDS SUMMARY | 2023-11-06 02:42 | External Medical Summary | Summary of Care ---
Author Name Unknown Organization [facility] Address [address] [facility] [place] [address] Phone [phone] Care Team Providers Care Seo Specialist Name Role Phone Giovany Correa DO Primary Care Provider Reason for Visit * Reason Onset Date Comments Medication Refill 09/20/2023 Encounter Details Date Type Department Care Team (Late st Contact Info) Description 09/20/2023 Refill Family Practice [facility] [address] [place] [address] Giovany Correa DO 132 [facility] [place] [address] Encounter for long-term (current) use of medications* Allergies No known active allergiesdocumented as of this encounter (statuses as of 09/22/2023) Medications Medication Sig Dispensed Refills Start Date End Date Status OSCAL 500/200 D-3 500-200 MG-UNIT PO TABSIndications:Engineering Operator hn's disease of colon (HCC) one tab [...] 07/31/2010 Active MUCINEX D 120-1200 MG PO [id number]:Chr onic rhinitis,Other chronic sinusitis,Hypertrop hy of nasal [...] Stelara 90 MG/ML Subcutaneous Solution Prefilled Syringe (Redux) INJECT 1 SYRINGE UNDER THE SKIN EVERY [...] as of this encounter (statuses as of 09/22/2023) Active Problems Problem Noted Date Diagnosed Date [...] as of this encounter (statuses as of 09/22/2023) Resolved Problems Problem Noted Date Diagnosed Date [...] as of this encounter (statuses as of 09/22/2023) Immunizations Name Administration Dates Next Due COVID-19 [...] Notes * Telephone Encounter - Jocy Henao RP - 09/22/2023 5:39 AM ESTRefused Prescriptions: Disp Refills Potassium Chloride ER 10 MEQ Oral Capsule *90 Cap*2 Sig: Take 1Capsule by mouth in the morning.Refused By: JOCY HENAO LReason for Refusal: Dose needs clarificat ion Electronically signed by [facility] located within [facility] at 09/22/2023 5:39 AM EST * Telephone Encounter - Jocy Henao RP - 09/22/2023 5:26 AM EST Images from the original note were not included. Per 05/13/24 [facility] discharge summary: Patient has not had lab completed since nor has filled medication since Recommend to repeat BMP to assess appropriate dose. Lab ordered an patient notified via [employer] response message to refill reuqest Thank You, [facility] located within [facility] Clinical Pharmacist Central[facility] Pharm[facility] Services ([facility]) (formerly Telepharmacy) [phone] 09/22/2023, 5:32 AM Electronically signed by [facility] located [facility] at 09/22/2023 5:39 AM EST documented in this encounter Plan of Treatment Upcoming Encounters Date Type Department Care Team (Late st Contact Info) Description 09/28/2023 2:40 PM EST Office Visit Gastroenterology, [facility] [address] [place] [address] Cheryl Rowley MD [address] [place] [address] 10/05/2023 8:30 AM EST [facility] [address] [place] [address] 10/13/2023 1:45 PM EST Office Visit Orthopaedics [facility] [place] [address] Sumi Mg MD [address] [place] [address] 10/25/2023 4:00 PM EST Telemedicine Psychiatry, [facility] [address] [place] [address] Lester Serna CRNP [address] [place] [address] 02/09/2024 12:20 PM EDT Office Visit Family Practice [facility] [place] [address] Giovany Correa DO [address] [place] [address] Scheduled Orders Name Type Priority Associated Diagnoses [...] the patient have Health Care Power of Retort Load Expediter? No Code Status History Code Status Date [...] the patient have Health Care Power of Retort Load Expediter? No Care Teams Seo Specialist Relationship Specialty Start Date End Date Giovany Correa DO [address] [place] [address] PCP - General Family Medicine 10/30/20 documented as of this encounter
--- OUTSIDE RECORDS SUMMARY | 2023-11-06 02:42 | External Medical Summary | Summary of Care ---
Author Name Unknown Organization [facility] Address [address] [facility] [place] [address] Phone [phone] Care Team Providers Care Tunnel Kiln Operator Name Role Phone Giovany Correa Primary Care Provider Encounter Details Date Type Department Care Team (Late st Contact Info) Description 09/25/2023 Orders Only PATIENT PORTAL DO NOT DELETE THIS DEPT USED BY [place] [id number] Allergies No known active allergiesdocumented as of this encounter (statuses as of 09/25/2023) Medications Medication Sig Dispensed Refills Start Date End Date Status OSCAL 500/200 D-3 500-200 MG-UNIT PO TABSIndications:Wire Frame Maker hn's disease of colon (HCC) one tab [...] 07/31/2010 Active MUCINEX D 120-1200 MG PO [id number]:Chr onic rhinitis,Other chronic sinusitis,Hypertrop hy of nasal [...] Stelara 90 MG/ML Subcutaneous Solution Prefilled Syringe ([email or web address]) INJECT 1 SYRINGE UNDER THE SKIN EVERY [...] as of this encounter (statuses as of 09/25/2023) Active Problems Problem Noted Date Diagnosed Date [...] as of this encounter (statuses as of 09/25/2023) Resolved Problems Problem Noted Date Diagnosed Date [...] as of this encounter (statuses as of 09/25/2023) Immunizations Name Administration Dates Next Due COVID-19 [...] No 10/12/2020 documented as of this encounter Plan of Treatment Upcoming Encounters Date Type Department Care Team (Late st Contact Info) Description 09/28/2023 2:40 PM EST Office Visit Gastroenterology, [facility] [address] [place] [address] Cheryl Rowley MD [address] [place] [address] 10/05/2023 8:30 AM EST Imaging Radiology [address] [place] [address] 10/13/2023 1:45 PM EST Office Visit Orthopaedics [facility] [address] [place] [address] Sumi Mg MD [address] [place] [address] 10/25/2023 4:00 PM EST Telemedicine Psychiatry, [facility] [address] [place] [address] Lester Serna CRNP [address] [place] [address] 02/09/2024 12:20 PM EDT Office Visit Family Practice [facility] [address] [place] [address] Giovany Correa DO [address] [place] [address] Health Maintenance Due Date Last Done Comments [...] the patient have Health Care Power of Director Ambulatory? No Code Status History Code Status Date [...] the patient have Health Care Power of Director Ambulatory? No Care Teams Tunnel Kiln Operator Relationship Specialty Start Date End Date Giovany Correa DO [address] [place] [address] PCP - General Family Medicine 10/30/20 documented as of this encounter
--- OUTSIDE RECORDS SUMMARY | 2023-11-06 02:42 | External Medical Summary | Summary of Care ---
Author Name Unknown Organization [facility] Address [address] [facility] [place] [address] Phone [phone] Care Team Providers Care Commodity Trader Name Role Phone Giovany Correa Primary Care Provider Reason for Visit * Reason Onset Date Comments Pre Cert/Prior Auth 09/29/2023 Encounter Details Date Type Department Care Team (Late st Contact Info) Description 09/29/2023 Telephone Gastroenterology, [facility] 132 [facility] [place] [address] Cheryl Rowley MD 132 [facility] [place] [address] Pre Cert/Prior Auth Allergies No known active allergiesdocumented as of this encounter (statuses as of 09/29/2023) Medications Medication Sig Dispensed Refills Start Date End Date Status OSCAL 500/200 D-3 500-200 MG-UNIT PO TABSIndications:Process Stripper hn's disease of colon (HCC) one tab [...] 07/31/2010 Active MUCINEX D 120-1200 MG PO [id number]:Chr onic rhinitis,Other chronic sinusitis,Hypertrop hy of nasal [...] Stelara 90 MG/ML Subcutaneous Solution Prefilled Syringe (TravelZeeky) INJECT 1 SYRINGE UNDER THE SKIN EVERY [...] as of this encounter (statuses as of 09/29/2023) Active Problems Problem Noted Date Diagnosed Date [...] as of this encounter (statuses as of 09/29/2023) Resolved Problems Problem Noted Date Diagnosed Date [...] as of this encounter (statuses as of 09/29/2023) Immunizations Name Administration Dates Next Due COVID-19 [...] Care Team (Late st Contact Info) Description 10/05/2023 8:30 AM EST Imaging Radiology [facility] [address] [place] [address] 10/13/2023 1:45 PM EST Office Visit Orthopaedics [address] [place] [address] Sumi Mg MD [address] [place] [address] 10/25/2023 4:00 PM EST Telemedicine Psychiatry, [facility] [address] [place] [address] Lester Serna CRNP [address] [place] [address] 02/09/2024 12:20 PM EDT Office Visit Family Practice [facility] [address] [place] [address] Giovany Correa DO [address] [place] [address] Health Maintenance Due Date Last Done Comments [...] (FLU shot) (#1) 2023 GFR 01/09/2024 01/08/2023, 0 01/2022, 09/13/2021, Additional history exists Diabetes Screening [...] the patient have Health Care Power of Field Artillery Crewmember? No Code Status History Code Status Date [...] the patient have Health Care Power of Field Artillery Crewmember? No Care Teams Commodity Trader Relationship Specialty Start Date End Date Giovany Correa DO [address] [place] [address] PCP - General Family Medicine 10/30/20 documented as of this encounter
--- OUTSIDE RECORDS SUMMARY | 2023-11-06 02:42 | External Medical Summary | Summary of Care ---
Author Name Unknown Organization [facility] Address [address] [facility] [place] [address] Phone [phone] Care Team Providers Care Wool Brusher Name Role Phone Giovany Correa Primary Care Provider Reason for Visit * Reason Onset Date Comments Appointment 10/02/2023 MRI Encounter Details Date Type Department Care Team (Late st Contact Info) Description 10/02/2023 Telephone Radiology [facility] 1st [facility], [address] [place] [address] Nita Medina, RT (R) Appointment (/MRI) Allergies No known active allergiesdocumented as of this encounter (statuses as of 10/02/2023) Medications Medication Sig Dispensed Refills Start Date End Date Status OSCAL 500/200 D-3 500-200 MG-UNIT PO TABSIndications:Music Therapy Teacher hn's disease of colon (HCC) one tab [...] 07/31/2010 Active MUCINEX D 120-1200 MG PO [id number]:Chr onic rhinitis,Other chronic sinusitis,Hypertrop hy of nasal [...] Stelara 90 MG/ML Subcutaneous Solution Prefilled Syringe (BIMA) INJECT 1 SYRINGE UNDER THE SKIN EVERY [...] as of this encounter (statuses as of 10/02/2023) Active Problems Problem Noted Date Diagnosed Date [...] as of this encounter (statuses as of 10/02/2023) Resolved Problems Problem Noted Date Diagnosed Date [...] as of this encounter (statuses as of 10/02/2023) Immunizations Name Administration Dates Next Due COVID-19 [...] encounter Miscellaneous Notes * Telephone Encounter - Nita Medina RT (R) - 10/02/2023 12:56 PM EST Left message to arrive at 7 NPO and call MRI if implants, metal in eyes, colonoscopy, insulin pump/diabetic monitor, new tattoos, . documented in this encounter Plan of Treatment Upcoming Encounters Date Type Department Care Team (Late st Contact Info) Description 10/05/2023 8:30 AM EST Imaging Radiology [facility] 1st Floor, [place] 132 [facility] [place] [address] 10/13/2023 1:45 PM EST Office Visit Orthopaedics [address] [place] [address] Sumi Mg MD 132 [facility] [place] [address] 10/25/2023 4:00 PM EST Telemedicine Psychiatry, [address] [place] [address] Lester Serna CRNP [address] [place] [address] 02/09/2024 12:20 PM EDT Office Visit Family Practice [facility] [address] [place] [address] Giovany Correa DO [address] [place] [address] Health Maintenance Due Date Last Done Comments [...] (FLU shot) (#1) 2023 GFR 01/09/2024 01/08/2023, 01/2022, 09/13/2021, Additional history exists Diabetes Screening [...] the patient have Health Care Power of Welfare Eligibility Interviewer? No Code Status History Code Status Date [...] the patient have Health Care Power of Welfare Eligibility Interviewer? No Care Teams Wool Brusher Relationship Specialty Start Date End Date Giovany Correa DO 132 [place] [address] PCP - General Family Medicine 10/30/20 documented as of this encounter
--- OUTSIDE RECORDS SUMMARY | 2023-11-06 02:42 | External Medical Summary | Summary of Care ---
Author Name Unknown Organization [facility] Address [address] [place] [address] Phone [phone] Care Team Providers Care Information Systems Auditor Name Role Phone Giovany Correa Primary Care Provider Reason for Visit * Reason Onset Date Comments Medication Refill 09/20/2023 Encounter Details Date Type Department Care Team (Late st Contact Info) Description 09/20/2023 Refill Psychiatry, [facility] 132 [facility] [place] [address] Dylan Laguna CRNP [address] [place] [address] Allergies No known active allergiesdocumented as of [...] 07/31/2010 Active MUCINEX D 120-1200 MG PO [id number]:Ch ronic rhinitis,Other chronic sinusitis,Hypertro phy of nasal [...] Stelara 90 MG/ML Subcutaneous Solution Prefilled Syringe (joblocal) INJECT 1 SYRINGE UNDER THE SKIN EVERY 8 WEEKS. REFRIGERATE. DO NOT FREEZE. 1 mL 6 08/03/2023 Active Gabapentin 600 MG Oral Tablet (Neurontin) Take 1 Tablet by mouth at bedtime. 30 Tablet 1 09/21/2023 Active Gabapentin 300 MG Oral [...] 9:37 AM ESTSigned Prescriptions: Disp Refills Gabapentin 600 MG Oral Tablet (Neurontin) 30 Tab*1 Sig: Take 1 Tablet by mouth at bedtime. Authorizing Provider: LESTER SERNA * Telephone Encounter - Maye Araiza OSA - 09/21/2023 8:24 AM ESTPending Prescriptions: Disp Refills Gabapentin 600 MG Oral Tablet (Neurontin) 30 Tab*1 Sig: Take 1 Tablet by mouth at bedtime. * Telephone Encounter - Maye Araiza OSA - 09/21/2023 8:23 AM EST Refill request from patient (Carroll) for Gabapentin 600mg. Medication last filled on 07/23/23 with 1 refills. Patient last seen on 08/04/23 with return appointment scheduled for 10/25/23. Patient had 0 cancelled appointments and 0 NO SHOW appointments. documented in this encounter Plan of Treatment Upcoming Encounters Date Type Department Care Team (Late st Contact Info) Description 09/28/2023 2:40 PM EST Office Visit Gastroenterology, [facility] [address] [place] [address] Cheryl Rowley MD 132 [place] [address] 10/05/2023 8:30 AM EST Imaging Radiology [facility] 1st Floor, [place] [address] [place] [address] 10/13/2023 1:45 PM EST Office Visit Orthopaedics [facility] [address] [place] [address] Sumi Mg MD 132 [place] [address] 10/25/2023 4:00 PM EST Telemedicine Psychiatry, [facility] [address] [place] [address] Lester Serna CRNP [address] [place] [address] 02/09/2024 12:20 PM EDT Office Visit Family Practice [facility] [address] [place] [address] Giovany Correa DO [address] [place] [address] Health Maintenance Due Date Last Done Comments [...] the patient have Health Care Power of Machine Feller? No Code Status History Code Status Date [...] the patient have Health Care Power of Machine Feller? No Care Teams Information Systems Auditor Relationship Specialty Start Date End Date Giovany Correa DO [facility] [place] [address] PCP - General Family Medicine 10/30/20 documented as of this encounter
--- OUTSIDE RECORDS SUMMARY | 2023-11-06 02:43 | External Medical Summary | Summary of Care ---
Author Name Unknown Organization [facility] Address [address] [facility] [place] [address] Phone [phone] Care Team Providers Care Chocolate Production Machine Operator Name Role Phone Giovany Correa Primary Care Provider Encounter Details Date Type Department Care Team (Late st Contact Info) Description 08/05/2023 Patient Reported Data Patient Survey Ortho OBERD Allergies No known active allergiesdocumented as of this encounter (statuses as of 08/05/2023) Medications Medication Sig Dispensed Refills Start Date End Date Status OSCAL 500/200 D-3 500-200 MG-UNIT PO TABSIndications:Transport Engineer hn's disease of colon (HCC) one tab [...] 07/31/2010 Active MUCINEX D 120-1200 MG PO [id number]:Chr onic rhinitis,Other chronic sinusitis,Hypertrop hy of nasal [...] TO ELBOW 350 g 3 03/29/2023 Active Gabapentin 300 MG Oral Capsule (Neurontin) Take 1 Capsule by mouth 2 times a day in the morning and at noon. 60 Capsule 1 05/10/2023 Active predniSONE 5 MG Oral Tablet (Deltasone) [...] once daily 90 Tablet 1 06/25/2023 Active Gabapentin 600 MG Oral Tablet (Neurontin) Take 1 Tablet by mouth at bedtime. 30 Tablet 1 07/23/2023 Active LORazepam 0.5 MG Oral Tablet (Ativan)Indications [...] Stelara 90 MG/ML Subcutaneous Solution Prefilled Syringe (damntheradio) INJECT 1 SYRINGE UNDER THE SKIN EVERY 8 WEEKS. REFRIGERATE. DO NOT FREEZE. 1 mL 6 08/03/2023 Active Hospital, Clinic, or Other Facility Administered Medication Ordered Dose Route Frequency Start Date End Date Status albuterol sulfate (PROVENTIL) (2.5 MG/3ML) 0.083% inhalation solution 2.5 mgIndications:ESCOBEDO (dyspnea on exertion) 2.5 mg NEBULIZER PRN 11/15/2019 Act ran documented as of this encounter (statuses as of 08/05/2023) Active Problems Problem Noted Date Diagnosed Date [...] as of this encounter (statuses as of 08/05/2023) Resolved Problems Problem Noted Date Diagnosed Date [...] as of this encounter (statuses as of 08/05/2023) Immunizations Name Administration Dates Next Due COVID-19 [...] Care Team (Late st Contact Info) Description 08/10/2023 3:45 PM EST Imaging Radiology [address] [place] [address] 08/25/2023 11:00 AM EST Office Visit Orthopaedics [facility] 132 [facility] [place] [address] Sumi Mg MD [address] [place] [address] 09/01/2023 1:00 PM EST Imaging Radiology [address] [place] [address] 09/28/2023 2:40 PM EST Office Visit Gastroenterology, [facility] [address] [place] [address] Cheryl Rowley MD [address] [place] [address] 10/25/2023 4:00 PM EST Telemedicine Psychiatry, [facility] [address] [place] [address] Lester Serna CRNP [address] [place] [address] 02/09/2024 12:20 PM EDT Office Visit Family Practice [facility] [address] [place] [address] Giovany Correa DO [address] [place] [address] Health Maintenance Due Date Last Done Comments [...] the patient have Health Care Power of Rocket Engine Tester? No Code Status History Code Status Date [...] the patient have Health Care Power of Rocket Engine Tester? No Care Teams Chocolate Production Machine Operator Relationship Specialty Start Date End Date Giovany Correa DO [address] [place] [address] PCP - General Family Medicine 10/30/20 documented as of this encounter
--- OUTSIDE RECORDS SUMMARY | 2023-11-06 02:43 | External Medical Summary | Summary of Care ---
Author Name Unknown Organization [facility] Address [address] [facility] [place] [address] Phone [phone] Care Team Providers Care Product Manager Medical Device Name Role Phone Giovany Correa Primary Care Provider Encounter Details Date Type Department Care Team (Late st Contact Info) Description 08/05/2023 Patient Reported Data Patient Survey Ortho OBERD Allergies No known active allergiesdocumented as of this encounter (statuses as of 08/05/2023) Medications Medication Sig Dispensed Refills Start Date End Date Status OSCAL 500/200 D-3 500-200 MG-UNIT PO TABSIndications:Facing Grinder hn's disease of colon (HCC) one tab [...] 07/31/2010 Active MUCINEX D 120-1200 MG PO [id number]:Chr onic rhinitis,Other chronic sinusitis,Hypertrop hy of nasal [...] Stelara 90 MG/ML Subcutaneous Solution Prefilled Syringe (AppUpper - ASO) INJECT 1 SYRINGE UNDER THE SKIN EVERY [...] Description 08/10/2023 3:45 PM EST Imaging Radiology [address] [place] [address] 08/25/2023 11:00 AM EST Office Visit Orthopaedics [facility] 132 [facility] [place] [address] Sumi Mg MD [address] [place] [address] 09/01/2023 1:00 PM EST Imaging Radiology [address] [place] [address] 09/28/2023 2:40 PM EST Office Visit Gastroenterology, [facility] [address] [place] [address] Cheryl Rowley MD [address] [place] [address] 10/25/2023 4:00 PM EST Telemedicine Psychiatry, [facility] [address] [place] [address] Lester Serna CRNP [address] [place] [address] 02/09/2024 12:20 PM EDT Office Visit Family Practice [facility] [address] [place] [address] Giovany Correa DO [address] [place] [address] Health Maintenance Due Date Last Done Comments [...] the patient have Health Care Power of Peanut Vendor? No Code Status History Code Status Date [...] the patient have Health Care Power of Peanut Vendor? No Care Teams Product Manager Medical Device Relationship Specialty Start Date End Date Giovany Correa DO [address] [place] [address] PCP - General Family Medicine 10/30/20 documented as of this encounter
--- OUTSIDE RECORDS SUMMARY | 2023-11-06 02:43 | External Medical Summary | Summary of Care ---
Author Name Unknown Organization [facility] Address [address] [facility] [place] [address] Phone [phone] Care Team Providers Care Bench Examiner Name Role Phone Giovany Correa Primary Care Provider Encounter Details Date Type Department Care Team (Late st Contact Info) Description 08/05/2023 Patient Reported Data Patient Survey Ortho OBERD Allergies No known active allergiesdocumented as of this encounter (statuses as of 08/05/2023) Medications Medication Sig Dispensed Refills Start Date End Date Status OSCAL 500/200 D-3 500-200 MG-UNIT PO TABSIndications:Lead Applier hn's disease of colon (HCC) one tab [...] 07/31/2010 Active MUCINEX D 120-1200 MG PO [id number]:Chr onic rhinitis,Other chronic sinusitis,Hypertrop hy of nasal [...] Stelara 90 MG/ML Subcutaneous Solution Prefilled Syringe (Sun Number) INJECT 1 SYRINGE UNDER THE SKIN EVERY [...] Description 08/10/2023 3:45 PM EST Imaging Radiology [address] [place] [address] 08/25/2023 11:00 AM EST Office Visit Orthopaedics [facility] 132 [facility] [place] [address] Sumi Mg MD [address] [place] [address] 09/01/2023 1:00 PM EST Imaging Radiology [address] [place] [address] 09/28/2023 2:40 PM EST Office Visit Gastroenterology, [facility] [address] [place] [address] Cheryl Rowley MD [address] [place] [address] 10/25/2023 4:00 PM EST Telemedicine Psychiatry, [facility] [address] [place] [address] Lester Serna CRNP [address] [place] [address] 02/09/2024 12:20 PM EDT Office Visit Family Practice [facility] [address] [place] [address] Giovany Correa DO [address] [place] [address] Health Maintenance Due Date Last Done Comments [...] the patient have Health Care Power of Edge Setter? No Code Status History Code Status Date [...] the patient have Health Care Power of Edge Setter? No Care Teams Bench Examiner Relationship Specialty Start Date End Date Giovany Correa DO [address] [place] [address] PCP - General Family Medicine 10/30/20 documented as of this encounter
--- OUTSIDE RECORDS SUMMARY | 2023-11-06 02:43 | External Medical Summary | Summary of Care ---
Author Name Unknown Organization [facility] Address [address] [place] [address] Phone [phone] Care Team Providers Care Automobile [employer] Name Role Phone Giovany Correa Primary Care Provider Reason for Visit * Reason Comments NEW PATIENT Right shoulder * Evaluate & Treat - Unlimited Visits (Within 30 days (routine)) - Pending Review Specialty Diagnoses / Procedures Referred By Contact Referred To Contact Sports Medicine / Orthopedics Diagnoses Arthritis of right acromioclavicular joint Mike Manuel MD [address] [place] [address] Referral ID Status Reason Start Date Expiration Date Visits Requested Visits Authorized [id number] Pending Review Specialty Services Required [phone] Encounter Details Date Type Department Care Team (Latest Contact Info) Description 08/25/2023 11:00 AM EST Office Visit Orthopaedics [facility] [address] [place] [address] Sumi Mg MD [address] [place] [id number] Arthritis of right acromioclavicular joint* Allergies No known active allergiesdocumented as of this encounter (statuses as of 08/25/2023) Medications Medication Sig Dispensed Refills Start Date End Date Status OSCAL 500/200 D-3 500-200 MG-UNIT PO TABSIndications: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 REFRIGERATE. DO NOT FREEZE. 1 mL 6 08/03/2023 Active Hospital, Clinic, or Other Facility Administered Medication Ordered Dose Route Frequency Start Date End Date Status albuterol sulfate (PROVENTIL) (2.5 MG/3ML) 0.083% inhalation solution 2.5 mgIndications:ESCOBEDO (dyspnea on exertion) 2.5 mg NEBULIZER PRN 11/15/2019 Act ran Triamcinolone Acetonide (Kenalog) 40 MG/ML inj 30 mgIndications:Arthritis of right acromioclavicular joint 30 mg IX ONCE 08/25/2023 08/25/2023 E nded lidocaine 1 % inj 7.5 mgIndications:Arthritis of right acromioclavicular joint 7.5 mg IX ONCE 08/25/2023 08/25/2023 E nded documented as of this encounter (statuses as of 08/25/2023) Active Problems Problem Noted Date Diagnosed Date [...] as of this encounter (statuses as of 08/25/2023) Resolved Problems Problem Noted Date Diagnosed Date [...] as of this encounter (statuses as of 08/25/2023) Immunizations Name Administration Dates Next Due COVID-19 [...] as of this encounter Progress Notes * Sumi Mg MD - 08/25/2023 11:03 AM EST Chief Complaint: NEW PATIENT (Right shoulder) History of Present Illness: Nursing Notes: Amy Rivers, MED ASSIST 08/25/23 1100 Signed Pt presents today for right shoulder injection. Referred by Dr. Manuel. Keiry Cruz is a 48 year old right hand dominant female who presents for consultation to [facility] Sports Medicine for right shoulder injury/pain. Consult requested by Mike Manuel MD. office note 08/05/2023 reviewed. Keiry Cruz is here unaccompanied Keiry Cruz reports right shoulder pain for almost 4 months. She was right- hand dominant. She was moving the shoulder and felt a pop. Pain localizes to the top of the shoulder near the AC joint.Has evidence of osteoarthritis on x-rays. Saw Dr. Manuel 08/05/2023 and was referred to physical therapy and to primary care sports medicine. Review of systems: All others negative except those noted above in HPI. Review of patient's allergies indicates: No Known Allergies Current Outpatient Medications Medication Sig Dispense Refill [...] PAIN APPLY TO ELBOW 350 g 3 Gabapentin 300 MG Oral Capsule (Neurontin) Take 1 Capsule by mouth 2 times a day in the morning andat noon. 60 Capsule 1 predniSONE 5 MG Oral Tablet (Deltasone) Take [...] by mouth once daily 90 Tablet 1 Gabapentin 600 MG Oral Tablet (Neurontin) Take 1 Tablet by mouth at bedtime. 30 Tablet 1 LORazepam 0.5 MG Oral Tablet (Ativan) Take 1 Tablet by mouth in the morning and 1 Tablet at noon and 1 Tablet before bedtime. 90 Tablet 0 Amphetamine-Dextroamphetamine 5 MG Oral Tablet (Adderall) Take 1 Tablet by mouth 2 times a day in the morning and at noon. 60 Tablet 0 Stelara 90 MG/ML Subcutaneous Solution Prefilled Syringe ([employer]) INJECT 1 SYRINGE UNDER THE SKIN EVERY 8 WEEKS. REFRIGERATE. DO NOT FREEZE. 1 mL 6 Current Facility-Administered Medications Medication Dose Route Frequency Provider Last Rate Last Admin albuterol sulfate (PROVENTIL) (2.5 MG/3ML) 0.083% inhalation solution 2.5 mg 2.5 mg Nebulizer MICHAELN Micah Rodriguez MD Past Medical History: Diagnosis Date Chronic rhinitis Crohn's disease (HCC) 1993 Crohn's disease of colon without complication (HCC) 03/24/2021 Depression with anxiety Erythema nodosum has had this in the past associated with her crohn's GERD (gastroesophageal reflux disease) IBS (irritable bowel syndrome) Tobacco use disorder Past Surgical History: Procedure Laterality Date ABDOMEN SURGERY PROCEDURE NEC COLONOSCOPY COLONOSCOPY W/ BIOPSY (RECTUM) 12/05/2009 done large external"elephant ear" hemorrhoids, small ulcer in rectumhypertrophy of anal papilla, rake ulceration at 20cm,ulcerated narrow stricture transverse colon that could not be passed bxs COLONOSCOPY, DIAGNOSTIC (RECTUM) 04/14/2011 await path- anastamosis patent COLONOSCOPY, DIAGNOSTIC (RECTUM) 03/23/2012 COLONOSCOPY FLEXIBLE PROXIMAL DIAGNOSTIC performed by Cheryl Rowley MD at ENDOSCOPY [facility] COLONOSCOPY, DIAGNOSTIC (RECTUM) 01/23/2013 COLONOSCOPY FLEXIBLE PROXIMAL DIAGNOSTIC performed by Cheryl Rowley MD at ENDOSCOPY [facility] COLONOSCOPY, DIAGNOSTIC (RECTUM) 02/02/2013 COLONOSCOPY FLEXIBLE PROXIMAL DIAGNOSTIC performed by Cheryl Rowley MD at ENDOSCOPY [facility] COLONOSCOPY, DIAGNOSTIC (RECTUM) 07/28/2017 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/COLONOSCOPY FLEXIBLE PROXIMAL DIAGNOSTIC performed by Cheryl Rowley MD at ENDOSCOPY [facility] COLONOSCOPY, DIAGNOSTIC (RECTUM) 07/24/2019 Mild anal stenosis/COLONOSCOPY FLEXIBLE PROXIMAL DIAGNOSTIC performed by Cheryl Rowley MD at ENDOSCOPY [facility] COLONOSCOPY, DIAGNOSTIC (RECTUM) 08/20/2020 Anastamotic stricture / INPT [facility] COLONOSCOPY, DIAGNOSTIC (RECTUM) 07/22/2021 normal bx / COLONOSCOPY FLEXIBLE PROXIMAL DIAGNOSTIC performed by Cheryl Rowley MD at ENDOSCOPY [facility] COLONOSCOPY, DIAGNOSTIC (RECTUM) 07/03/2022 no evidence of active IBD, Crohns appears in remission / biopsies no specific pathologic change / follow up in clinic / COLONOSCOPY FLEXIBLE PROXIMAL DIAGNOSTIC performed by Charlie Ma ENDOSCOPY [facility] CYSTOSCOPY/INSERTION OF STENT 01/01/2010 CYSTOURETHROSCOPY WITH INSERTION URETERAL STENT performed by ZEV MAZA at [place] [facility] EGD, FLEXIBLE, DIAGNOSTIC 09/08/2012 UPPER GI ENDOSCOPY DIAGNOSTIC performed by Cheryl Rowley MD at ENDOSCOPY [facility] INFERIOR TURBINATES ABLATION, INTRAMURAL Right 12/13/2007 CAUTERIZE MUSOSA OF INFERIOR TURBINATES INTRAMURAL performed by Lin Zabala MD at [facility] INFERIOR TURBINATES ABLATION, SUPERFICIAL Left 12/13/2007 CAUTERIZE MUSOSA OF INFERIOR TURBINATES SUPERFICIAL performed by Lin Zabala MD at OR [facility] LAPAROSCOPIC COLECTOMY PARTIAL WITH ANASTOMOSIS 01/01/2010 LAPAROSCOPIC COLECTOMY PARTIAL WITH ANASTOMOSIS performed by HALEY VAZQUEZ at OR [facility] LAPAROSCOPY DIAGNOSTIC N/A 10/13/2020 LAPAROSCOPY DIAGNOSTIC performed by Betsy Wallace MD at [place] [facility] LOVONORGESTREL [employer]TRCPTV 52MG 10/2008 NASAL SEPTUM CARTILAGE FOR GRAFT 04/06/2007 OBTAIN CARTILAGE GRAFT NASAL SEPTUM performed by LIN ZABALA at [facility] NASAL/SINUS ENDOSCOPY, SURGICAL N/A 12/13/2007 NASAL SINUS ENDOSCOPY WITH DEMARCO BULLOSA RESECTION performed by Lin Zabala MD at [facility] RECONSTRUCTION OF NOSE, COMPLETE 04/06/2007 RHINOPLASTY COMPLETE performed by LIN ZABALA at [facility] REMOVAL OF TONSILS, UNDER AGE 10 REMOVAL OF TURBINATE BONES 05/14/2011 Dr. Anand REPAIR BOWEL OPENING, W/FUSION 2000 bowel resecection REPAIR NASAL STENOSIS 04/06/2007 REPAIR NASAL VESTIBULAR STENOSIS performed by LIN ZABALA at [facility] REPAIR OF NASAL SEPTUM 04/06/2007 SEPTOPLASTY performed by LIN ZABALA at [facility] REPAIR OF NASAL SEPTUM N/A 12/13/2007 SEPTOPLASTY performed by Lin Zabala MD at [facility] UPPER GI ENDOSCOPY Social History Socioeconomic History Marital status: Single Spouse name: Not on file Number of children: 0 Years of education: Not on file Highest education level: Not on file Occupational History Occupation: [employer] Employer: [employer] Tobacco Use Smoking status: Every Day Packs/day: 0.50 Years: 20.00 Additional pack years: 0.00 Total pack years: 10.00 Types: Cigarettes Smokeless tobacco: Never Vaping Use Vaping Use: Never used Substance and Sexual Activity Alcohol use: Yes Alcohol/week: 0.0 standard drinks of alcohol Comment: Less than monthly Drug use: No Sexual activity: Not Currently Partners: Male control/protection: Abstinence Comment: Post Menopausal Other Topics Concern Service Not Asked Blood Transfusions No Caffeine Concern Not Asked Occupational Exposure Not Asked Hobby Hazards Not Asked Sleep Concern Not Asked Stress Concern Not Asked Weight Concern Not Asked Special Diet Not Asked Back Care Not Asked Exercise Not Asked Bike Helmet Not Asked Seat Belt Yes Self-Exams Not Asked Social History Narrative [employer] INFORMATION ENVIRONMENTAL HISTORY: Type of Home: [place] Type of Heating System: Electric Air Conditioning: Yes Patient's bedroom, Living room and Dining room Basement: Finished, Carpeted rooms and No evidence mold, mildew Home have cockroaches: No Irritants in the home: Scented Candles Patient's bedroom location: Floor: first Type of addi: Carpeting Beds: Number: 1 Type of beds: Mattress and Box spring Pillows: Number: 4 Type of pillows: Synthetic (hypoallergenic, polyester) and Foam Bedroom contains: Stuffed animals Pets: 1 cat(s) and 1 dog(s) [place] farm: No Radio DJ; no occupation related worsening of symptoms. Entered by: Alexx Goodwin MD 07/31/2010 Social Determinants of Health Financial Resource Strain: Not on file Food Insecurity: No Food Insecurity (02/08/2020) Hunger Vital Sign Worried About Running Out of Food in the Last Year: Never true Ran Out of Food in the Last Year: Never true Transportation Needs: Not on file Physical Activity: Not on file Stress: Not on file Social Connections: Not on file Intimate Partner Violence: Not on file Housing Stability: Not on file Family History Problem Relation Age of Onset Heart Disorder Mother Arthritis Mother Gastro-intestinal disorder Mother diverticulitis Allergies Father Asthma Father Transient ischemic attack Father Esophageal cancer Father Diabetes Sister 45 Arthritis Sister Crohn's disease Sister 46 Gastro-intestinal disorder Grandmother (Maternal) diverticulitis- Cancer Grandfather (Paternal) unknown primary Family History; none relevant to acute HPI 08/25/2023 Objective: [facility] 08/05/2023 06:03 08/05/2023 09:30 08/05/2023 09:31 [facility] Date of Service 2023-08-05 2023-08-05 2023-08-25 2023-08-25 Appt Label now now now now [facility] Shoulder Assessment Computer Adapted Test (Pt Reported) 32.5033 39.0295 [place] Quality of Life Survey Physical (Pt Reported) 16.7289 21.0324 [place] Quality of Life Survey Mental (Pt Reported) 39.4015 33.5454 Short Form 12 Quality of Life survey Physical Health (Pt Reported) 19.1198 22.4462 Short Form 12 Quality of Life survey Mental Health (Pt Reported) 42.7002 34.7882 Physical Exam There were no vitals filed for this visit. Estimated body mass index is 25.5 kg/m as calculated from the following: Height as of 07/03/22: 1.74 m (5' 8.5"). Weight as of 01/12/23: 77.2 kg (170 lb 3.2 oz). General: generally well-nourished and in no acute distress HEENT: normocephalic, atraumatic, sclera anicteric Psych: mood and affect normal , cooperative Card: Peripheral pulses: normal in affected extremity (s) Resp: equal chest rise, non-tachypneic, non-labored breathing Skin: no rash, normal Neuro: Coordination: normal; Sensation: normal on affected extremity (s) MSK: Shoulder exam, bilateral Inspection: No visible deformity, redness, swelling or bruising Palpation: tender to palpation at AC joint right Shoulder glenohumeral ACTIVE range of motion: Abduction and forward flexion to 100 10 compared to 170 on left. Full external rotation and internal rotation bilaterally. Pain with cross-arm adduction, Neer's and Urbina. Negative empty can. Radiology (I have personally reviewed the following films): PROCEDURE INFORMATION: Exam: XR Right Shoulder Exam date and time: 08/05/2023 9:05 AM Age: 48 years old Clinical indication: Pain in right shoulder; Additional info: Right shoulder pain TECHNIQUE: Imaging protocol: Radiologic exam of the right shoulder. Views: 2 or more views. COMPARISON: DX XR SHOULDER, 2 OR MORE VIEWS 08/05/2023 8:38 AM FINDINGS: Bones/joints: Normal glenohumeral joint. Moderate DJD at the right AC joint. No acute fracture or dislocation. Soft tissues: Normal. IMPRESSION IMPRESSION: Moderate DJD at the right AC joint. PROCEDURE INFORMATION: Exam: XR Right Shoulder Exam date and time: 08/05/2023 8:38 AM Age: 48 years old Clinical indication: Other instability, right shoulder; Additional info: Shoulder pain, R TECHNIQUE: Imaging protocol: Radiologic exam of the right shoulder. Views: 2 or more views. COMPARISON: DX (CXR AP X-VALENZUELA GRID, CHEST, CXR AP GRID Crosswise) 10/15/2020 6:55 AM FINDINGS: Bones/joints: No acute fracture or dislocation. Degenerative changes of the acromioclavicular and glenohumeral joints. Soft tissues: Normal. IMPRESSION IMPRESSION: Mild osteoarthritis. PROCEDURE INFORMATION: Exam: XR Left Shoulder Exam date and time: 08/05/2023 8:38 AM Age: 48 years old Clinical indication: Other instability, right shoulder; Additional info: Shoulder pain, R TECHNIQUE: Imaging protocol: Radiologic exam of the left shoulder. Views: 2 or more views. COMPARISON: DX (CXR AP X-VALENZUELA GRID, CHEST, CXR AP GRID Crosswise) 10/15/2020 6:55 AM FINDINGS: Bones/joints: No acute fracture or dislocation. Degenerative changes of the acromioclavicular and glenohumeral joints. Soft tissues: Normal. IMPRESSION: Mild osteoarthritis. Assessment and Plan: ICD-10-CM 1. Arthritis of right acromioclavicular joint M19.011 Patient is a 48-year-old female who is seen today for right shoulder pain. Suspect due to subacromial impingement and AC joint arthritis. She was already set up to start physical therapy next week. We discussed options of intra- articular AC joint injection today to work in conjunction with physicaltherapy and oral pain medication. Multiple questions answered about etiology of her symptoms. Ultimately, she elected to proceed with injection, see procedure note below. I will see her back in mid September. If she does not have any significant improvement in her symptoms with the injection and therapy consider MRI. Procedure note: RIGHT acromioclavicular joint injection Time out: Prior to injection, a time out was called to confirm the administration of appropriate medicine, patient name, procedure and confirm to the best of our ability and knowledge the presence of any necessary risks and benefits. Patient verbalizes understanding. Ultrasound utilized to guide injection Ultrasound required due to: need to visualize specific joint recess Ultrasound not billed for as I am in Johana's training phase Using sterile technique, the area was cleansed with ChloraPrep. Under ultrasound guidance with a linear transducer a 22 gauge needle was advanced into the AC joint using an out of plane approach. 0.75 mL 1% lidocaine and 0.75 mL triamcinolone injected into the AC joint and visualize entered in the desired space. There were no complications. Patient tolerated procedure with no significant bleeding or adverse reaction. Patient instructed to call or return to clinic for fever or warmth and redness at injection site for potential infection. Patient also advised as to potential for steroid flare reaction including increased pain and redness at injection site which should be treated with ice and resolve within 24 hours. The above assessment and plan were discussed at length. All questions were answered, and the patient expressed understanding. Sumi Mg MD Primary Care Sports Medicine [facility] Orthopaedics [facility] [address] [place] [id number] documented in this encounter Nursing Notes * Amy Rivers MED ASSIST - 08/25/2023 10:59 AM EST Pt presents today for right shoulder injection. Referred by Dr. Manuel. documented in this encounter Plan of Treatment Upcoming Encounters Date Type Department Care Team (Late st Contact Info) Description 09/01/2023 1:00 PM EST Imaging Radiology [facility] [place] [address] [place] [address] 09/28/2023 2:40 PM EST Office Visit Gastroenterology, [facility] [address] [place] [address] Cheryl Rowley MD [address] [place] [address] 10/13/2023 1:45 PM EST Office Visit Orthopaedics [facility] [address] [place] [address] Sumi Mg MD [address] [place] [address] 10/25/2023 4:00 PM EST Telemedicine Psychiatry, [facility] [address] [place] [place] [address] Lester Serna CRNP [address] [place] [address] 02/09/2024 12:20 PM EDT Office Visit Family Practice [facility] [address] [place] [address] Giovany Correa DO [address] [place] [address] Health Maintenance Due Date Last Done Comments [...] as of this encounter Visit Diagnoses Diagnosis Arthritis of right acromioclavicular joint- Primary Unspecified arthropathy, shoulder region documented in this encounter Administered Medications Inactive Administered Medications - up to 3 most recent administrations Medication Order MAR Action Action Date Dose Rate Site lidocaine 1 % inj 7.5 mg 7.5 mg (0.75 mL), Intra-Articular, ONCE, On Wed08/25/23 at 1200, For 1 dose Given 08/25/2023 11:15 AM EST 7.5 mg Shoulder Right Triamcinolone Acetonide (Kenalog) 40 MG/ML inj 30 mg 30 mg, Intra-Articular, ONCE, On Wed08/25/23 at 1200, For 1 dose Given 08/25/2023 11:15 AM EST 30 mg Shoulder Right documented in this encounter Advance Directives Latest [...] the patient have Health Care Power of Front Desk Administrator? No Code Status History Code Status Date [...] the patient have Health Care Power of Front Desk Administrator? No Care Teams Autom[employer] Relationship Specialty Start Date End Date Giovany Correa DO [address] [place] [address] PCP - General Family Medicine 10/30/20 documented as of this encounter
--- OUTSIDE RECORDS SUMMARY | 2023-11-06 02:43 | External Medical Summary | Summary of Care ---
Author Name Unknown Organization [facility] Address [address] [facility] [place] [address] Phone [phone] Care Team Providers Care Sewing Inspector Name Role Phone Giovany Correa Primary Care Provider Reason for Visit * Reason Onset Date Comments Other 07/21/2023 Encounter Details Date Type Department Care Team (Late st Contact Info) Description 07/21/2023 Telephone Gastroenterology, [facility] [address] [place] [address] Cheryl Rowley MD [address] [employer] [place] [address] Other Allergies No known active allergiesdocumented as of [...] 07/31/2010 Active MUCINEX D 120-1200 MG PO [id number]:Ch ronic rhinitis,Other chronic sinusitis,Hypertro phy of nasal [...] by mouth at bedtime. 30 Tablet 1 05/10/2023 3 Discontinue d(Refill) Amphetamine-Dextro amphetamine 5 MG Oral Tablet (Adderall) Take 1 Tablet by mouth 2 times a day in the morning and at noon. 60 Tablet 0 06/25/2023 3 Discontinue d(Refill) LORazepam 0.5 MG Oral Tablet (Ativan)Indication s:Anxiety Take 1 Tablet by mouth in the morning and 1 Tablet at noon and 1 Tablet before bedtime. 90 Tablet 0 06/28/2023 3 Discontinue d(Refill) Stelara 90 MG/ML Subcutaneous Solution Prefilled Syringe ([employer]) INJECT 1 SYRINGE UNDER THE SKIN EVERY 8 WEEKS. REFRIGERATE. DO NOT FREEZE. 1 mL 6 07/19/2023 3 Discontinue d(Refill) Hospital, Clinic, or Other Facility Administered Medication Ordered Dose Route Frequency Start Date End Date Status albuterol sulfate (PROVENTIL) (2.5 MG/3ML) 0.083% inhalation solution 2.5 mgIndications:ESCOBEDO (dyspnea on exertion) 2.5 mg NEBULIZER PRN 11/15/2019 Act ran documented as of this encounter (statuses as of 08/05/2023) Active Problems Problem Noted Date Diagnosed Date Restless legs syndrome (RLS) 06/30/2022 Gastrostomy status [...] patient declined. REG ENTERITIS, LG INTEST 06/09/2005 03/ Tobacco use disorder 009 Overview: Resolved per [...] encounter Miscellaneous Notes * Telephone Encounter - Evy Peters RN - 08/02/2023 9:45 AM EST [facility] and pt called [facility] again they [facility]. Please forward. * Telephone Encounter - Evy Peters RN - 07/23/2023 1:42 PM EST Called and LMOM * Telephone Encounter - Girish Ulrich [facility] - 07/21/2023 2:08 PM EST Auto-routing to [facility] may be turned on since patient has [facility] and this is the preferred pharmacy. [facility] will be able to re-route on outreach. [facility] does offer shared documentation for ease of communication and increased adherence and is recommended especially for those followed by Johana. * Addendum Note - Evy Peters RN - 07/21/2023 1:08 PM ESTAddended by: EVY PETERS on: 07/21/2023 01:08 PM Modules accepted: Orders * Telephone Encounter - Evy Peters RN - 07/21/2023 1:05 PM EST Copied from another TE " Jeannette Redd OSA routed conversation to [facility] Nurse Ivins/Class33 minutes ago (12:32 PM) Jeannette Redd OSA33 minutes ago (12:32 PM) NE Pt called to confirm that [facility] and Stelara needs sent there " Girish can you assist ? * Telephone Encounter - Evy Peters RN - 07/21/2023 9:03 AM EST Received a call from [facility] regarding a refill request on this patient. It looks like this recently sent to [facility]. I left a message I wanted to confirm where she would like this script to be sent. documented in this encounter Plan of Treatment Upcoming Encounters Date Type Department Care Team (Late st Contact Info) Description 08/10/2023 3:45 PM EST Imaging Radiology [facility] 1st Floor, [place] [address] [place] [address] 08/25/2023 11:00 AM EST Office Visit Orthopaedics [facility] 132 [facility] [place] [address] Sumi Mg MD 132 [facility] [place] [address] 09/01/2023 1:00 PM EST Imaging Radiology [facility] 1st Floor, [place] [address] [place] [address] 09/28/2023 2:40 PM EST Office Visit Gastroenterology, [facility] [address] [place] [address] Cheryl Rowley MD [address] [place] [address] 10/25/2023 4:00 PM EST Telemedicine Psychiatry, [facility] [address] [place] [address] Lester Serna CRNP [address] [place] [address] 02/09/2024 12:20 PM EDT Office Visit Family Practice [facility] [address] [place] [address] Giovany Correa DO [address] [place] [address] Health Maintenance Due Date Last Done Comments [...] the patient have Health Care Power of Siding Installer? No Code Status History Code Status Date [...] the patient have Health Care Power of Siding Installer? No Care Teams Sewing Inspector Relationship Specialty Start Date End Date Giovany Crorea DO [address] [place] [address] PCP - General Family Medicine 10/30/20 documented as of this encounter
--- OUTSIDE RECORDS SUMMARY | 2023-11-06 02:43 | External Medical Summary | Summary of Care ---
Author Name Unknown Organization [facility] Address [address] [facility] [place] [address] Phone [phone] Care Team Providers Care Steel Pan Form Placing Supervisor Name Role Phone Giovany Correa Primary Care Provider Encounter Details Date Type Department Care Team (Late st Contact Info) Description 08/05/2023 Patient Reported Data Patient Survey Ortho OBERD Allergies No known active allergiesdocumented as of this encounter (statuses as of 08/05/2023) Medications Medication Sig Dispensed Refills Start Date End Date Status OSCAL 500/200 D-3 500-200 MG-UNIT PO TABSIndications:Clinical Laboratory Scientist hn's disease of colon (HCC) one tab [...] 07/31/2010 Active MUCINEX D 120-1200 MG PO [id number]:Chr onic rhinitis,Other chronic sinusitis,Hypertrop hy of nasal [...] Stelara 90 MG/ML Subcutaneous Solution Prefilled Syringe ([employer]) INJECT 1 SYRINGE UNDER THE SKIN EVERY [...] Description 08/10/2023 3:45 PM EST Imaging Radiology [address] [place] [address] 08/25/2023 11:00 AM EST Office Visit Orthopaedics [facility] [address] [facility] [place] [address] Sumi Mg MD [address] [place] [address] 09/01/2023 1:00 PM EST Imaging Radiology [address] [place] [address] 09/28/2023 2:40 PM EST Office Visit Gastroenterology, [facility] [address] [place] [address] Cheryl Rowley MD [address] [place] [address] 10/25/2023 4:00 PM EST Telemedicine Psychiatry, [facility] [address] [place] [address] Lester Serna CRNP [address] [place] [address] 02/09/2024 12:20 PM EDT Office Visit Family Practice [facility] [address] [place] [address] Giovany Correa DO [address] [place] [address] Health Maintenance Due Date Last Done Comments [...] the patient have Health Care Power of Pipe Organ Installer? No Code Status History Code Status [...] the patient have Health Care Power of Pipe Organ Installer? No Care Teams Steel Pan Form Placing Supervisor Relationship Specialty Start Date End Date Giovany Correa DO [address] [place] [address] PCP - General Family Medicine 10/30/20 documented as of this encounter
--- OUTSIDE RECORDS SUMMARY | 2023-11-06 02:43 | External Medical Summary | Summary of Care ---
Author Name Unknown Organization [facility] Address [address] [facility] [place] [address] Phone [phone] Care Team Providers Care Spinner Fixer Name Role Phone Giovany Correa Primary Care Provider Encounter Details Date Type Department Care Team (Late st Contact Info) Description 08/05/2023 Patient Reported Data Patient Survey Ortho OBERD Allergies No known active allergiesdocumented as of this encounter (statuses as of 08/05/2023) Medications Medication Sig Dispensed Refills Start Date End Date Status OSCAL 500/200 D-3 500-200 MG-UNIT PO TABSIndications:Utility Bagger hn's disease of colon (HCC) one tab [...] 07/31/2010 Active MUCINEX D 120-1200 MG PO [id number]:Chr onic rhinitis,Other chronic sinusitis,Hypertrop hy of nasal [...] Stelara 90 MG/ML Subcutaneous Solution Prefilled Syringe ([employer]) INJECT 1 SYRINGE UNDER THE SKIN EVERY [...] Description 08/10/2023 3:45 PM EST Imaging Radiology [address] [place] [address] 08/25/2023 11:00 AM EST Office Visit Orthopaedics [facility] 132 [facility] [place] [address] Sumi Mg MD [address] [place] [address] 09/01/2023 1:00 PM EST Imaging Radiology [address] [place] [address] 09/28/2023 2:40 PM EST Office Visit Gastroenterology, [facility] [address] [place] [address] Cheryl Rowley MD [address] [place] [address] 10/25/2023 4:00 PM EST Telemedicine Psychiatry, [facility] [address] [place] [address] Lester Serna CRNP [address] [place] [address] 02/09/2024 12:20 PM EDT Office Visit Family Practice [facility] [address] [place] [address] Giovany Correa DO [address] [place] [address] Health Maintenance Due Date Last Done Comments [...] the patient have Health Care Power of Rn Neonatal Icu? No Code Status History Code Status Date [...] the patient have Health Care Power of Rn Neonatal Icu? No Care Teams Spinner Fixer Relationship Specialty Start Date End Date Giovany Correa DO [address] [place] [address] PCP - General Family Medicine 10/30/20 documented as of this encounter
--- OUTSIDE RECORDS SUMMARY | 2023-11-06 02:43 | External Medical Summary | Summary of Care ---
Author Name Unknown Organization [facility] Address [address] [facility] [place] [address] Phone [phone] Care Team Providers Care Setter Machine Name Role Phone Giovany Correa Primary Care Provider Encounter Details Date Type Department Care Team (Late st Contact Info) Description 08/05/2023 Patient Reported Data Patient Survey Ortho OBERD Allergies No known active allergiesdocumented as of this encounter (statuses as of 08/05/2023) Medications Medication Sig Dispensed Refills Start Date End Date Status OSCAL 500/200 D-3 500-200 MG-UNIT PO TABSIndications:Sagger Maker hn's disease of colon (HCC) one [...] 07/31/2010 Active MUCINEX D 120-1200 MG PO [id number]:Chr onic rhinitis,Other chronic sinusitis,Hypertrop hy of nasal [...] Stelara 90 MG/ML Subcutaneous Solution Prefilled Syringe ([employer]) INJECT 1 SYRINGE UNDER THE SKIN EVERY [...] Description 08/10/2023 3:45 PM EST Imaging Radiology [address] [place] [address] 08/25/2023 11:00 AM EST Office Visit Orthopaedics [facility] [place] [address] Sumi Mg MD [address] [place] [address] 09/01/2023 1:00 PM EST Imaging Radiology [address] [place] [address] 09/28/2023 2:40 PM EST Office Visit Gastroenterology, [facility] [address] [place] [address] Cheryl Rowley MD [address] [place] [address] 10/25/2023 4:00 PM EST Telemedicine Psychiatry, [facility] [address] [place] [address] Lester Serna CRNP [address] [place] [address] 02/09/2024 12:20 PM EDT Office Visit Family Practice [facility] [address] [place] [address] Giovany Correa DO [address] [place] [address] Health Maintenance Due Date Last Done Comments [...] the patient have Health Care Power of Tar Distillation Supervisor? No Code Status History Code Status Date [...] the patient have Health Care Power of Tar Distillation Supervisor? No Care Teams Setter Machine Relationship Specialty Start Date End Date Giovany Correa DO [address] [place] [address] PCP - General Family Medicine 10/30/20 documented as of this encounter
--- OUTSIDE RECORDS SUMMARY | 2023-11-06 02:43 | External Medical Summary | Summary of Care ---
Author Name Unknown Organization [facility] Address [address] [facility] [place] [address] Phone [phone] Care Team Providers Care Bottle House Cleaners Supervisor Name Role Phone Giovany Correa Primary Care Provider Reason for Visit * Reason Comments NEW PATIENT Right shoulder * Evaluate & Treat - Unlimited Visits (Within 30 days (routine)) - Pending Review Specialty Diagnoses / Procedures Referred By Contact Referred To Contact Sports Medicine / Orthopedics Diagnoses Arthritis of right acromioclavicular joint Mike Manuel MD [address] [place] [address] Referral ID Status Reason Start Date Expiration Date Visits Requested Visits Authorized [id number] Pending Review Specialty Services Required [phone] Encounter Details Date Type Department Care Team (Latest Contact Info) Description 08/25/2023 11:00 AM EST Office Visit Orthopaedics [facility] [address] [place] [address] Sumi Mg MD [address] [place] [id number] Arthritis of right acromioclavicular joint* Allergies No known active allergiesdocumented as of this encounter (statuses as of 08/25/2023) Medications Medication Sig Dispensed Refills Start Date End Date Status OSCAL 500/200 D-3 500-200 MG-UNIT PO TABSIndications:Bottom Hoop Driver hn's disease of colon (HCC) one tab [...] 07/31/2010 Active MUCINEX D 120-1200 MG PO [id number]:Chr onic rhinitis,Other chronic sinusitis,Hypertrop hy of nasal [...] Stelara 90 MG/ML Subcutaneous Solution Prefilled Syringe ([employer]) INJECT 1 SYRINGE UNDER THE SKIN EVERY [...] joint 30 mg IX ONCE 08/25/2023 08/25/2023 A ctive lidocaine 1 % inj 7.5 mgIndications:Arthritis of right acromioclavicular joint 7.5 mg IX ONCE 08/25/2023 08/25/2023 A ctive documented as of this encounter (statuses as [...] dominant female who presents for consultation to [facility] Sports Medicine for right shoulder injury/pain. Consult [...] Stelara 90 MG/ML Subcutaneous Solution Prefilled Syringe (T[employer]il[employer]) INJECT 1 SYRINGE UNDER THE SKIN EVERY 8 WEEKS. REFRIGERATE. DO NOT FREEZE. 1 mL 6 Current Facility-Administered Medications Medication Dose Route Frequency Provider Last Rate Last Admin albuterol sulfate (PROVENTIL) (2.5 MG/3ML) 0.083% inhalation solution 2.5 mg 2.5 mg Nebulizer Micah Valles MD Past Medical History: Diagnosis Date Chronic [...] performed by Cheryl Rowley MD at ENDOSCOPY [facility] COLONOSCOPY, DIAGNOSTIC (RECTUM) 01/23/2013 COLONOSCOPY FLEXIBLE PROXIMAL DIAGNOSTIC performed by Cheryl Rowley MD at ENDOSCOPY [facility] COLONOSCOPY, DIAGNOSTIC (RECTUM) 02/02/2013 COLONOSCOPY FLEXIBLE PROXIMAL DIAGNOSTIC performed by Cheryl Rowley MD at ENDOSCOPY [facility] COLONOSCOPY, DIAGNOSTIC (RECTUM) 07/28/2017 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/COLONOSCOPY FLEXIBLE PROXIMAL DIAGNOSTIC performed by Cheryl Rowley MD at ENDOSCOPY [facility] COLONOSCOPY, DIAGNOSTIC (RECTUM) 07/24/2019 Mild anal stenosis/COLONOSCOPY FLEXIBLE PROXIMAL DIAGNOSTIC performed by Cheryl Rowley MD at ENDOSCOPY [facility] COLONOSCOPY, DIAGNOSTIC (RECTUM) 08/20/2020 Anastamotic stricture / INPT [facility] COLONOSCOPY, DIAGNOSTIC (RECTUM) 07/22/2021 normal bx / COLONOSCOPY FLEXIBLE PROXIMAL DIAGNOSTIC performed by Cheryl Rowley MD at ENDOSCOPY [facility] COLONOSCOPY, DIAGNOSTIC (RECTUM) 07/03/2022 no evidence of active IBD, Crohns appears in remission / biopsies no specific pathologic change / follow up in clinic / COLONOSCOPY FLEXIBLE PROXIMAL DIAGNOSTIC performed by Charlie Ma ENDOSCOPY [facility] CYSTOSCOPY/INSERTION OF STENT 01/01/2010 CYSTOURETHROSCOPY WITH INSERTION URETERAL STENT performed by ZEV MAZA [place] [facility] EGD, FLEXIBLE, DIAGNOSTIC 09/08/2012 UPPER GI ENDOSCOPY DIAGNOSTIC performed by Cheryl Rowley MD at ENDOSCOPY [facility] INFERIOR TURBINATES ABLATION, INTRAMURAL Right 12/13/2007 CAUTERIZE MUSOSA OF INFERIOR TURBINATES INTRAMURAL performed by Lin Zabala MD at OR [facility] INFERIOR TURBINATES ABLATION, SUPERFICIAL Left 12/13/2007 CAUTERIZE MUSOSA OF INFERIOR TURBINATES SUPERFICIAL performed by Lin Zabala MD at OR [facility] LAPAROSCOPIC COLECTOMY PARTIAL WITH ANASTOMOSIS 01/01/2010 LAPAROSCOPIC COLECTOMY PARTIAL WITH ANASTOMOSIS performed by HALEY VAZQUEZ at [place] [facility] [place] LAPAROSCOPY DIAGNOSTIC N/A 10/13/2020 LAPAROSCOPY DIAGNOSTIC performed by Betsy Wallace MD at [place] [facility] [place] [employer] 52MG 10/2008 NASAL SEPTUM CARTILAGE [...] Occupational History Occupation: [employer] Employer: [employer] Tobacco Use Smoking status: Every Day [...] 2023-08-25 Appt Label now now now now [facility] Shoulder Assessment Computer Adapted Test (Pt Reported) 32.5033 39.0295 [place] Quality of Life Survey Physical (Pt Reported) 16.7289 21.0324 [place] Quality of Life Survey Mental (Pt Reported) [...] Sumi Mg MD Primary Care Sports Medicine [facility] [address] [facility] [place] [address] documented in this encounter Nursing Notes * Amy Rivers MED ASSIST - 08/25/2023 10:59 AM EST Pt presents today for right shoulder injection. Referred by Dr. Manuel. documented in this encounter Plan of Treatment Upcoming Encounters Date Type Department Care Team (Late st Contact Info) Description 09/01/2023 1:00 PM EST Imaging Radiology [address] 132 [facility] [place] [address] 09/28/2023 2:40 PM EST Office Visit Gastroenterology, [facility] 132 [facility] [place] [address] Cheryl Rowley MD 132 [facility] [place] [address] 10/13/2023 1:45 PM EST Office Visit Orthopaedics [facility] 132 [facility] [place] [address] Sumi Mg MD [address] [place] [address] 10/25/2023 4:00 PM EST Telemedicine Psychiatry, [facility] [address] [place] [address] Lester Serna CRNP [address] [place] [address] 02/09/2024 12:20 PM EDT Office Visit Family Practice [facility] [address] [place] [address] Giovany Correa DO [address] [place] [address] Health Maintenance Due Date Last Done Comments [...] arthropathy, shoulder region documented in this encounter Advance Directives Latest [...] the patient have Health Care Power of Client Service Executive? No Code Status History Code Status Date [...] the patient have Health Care Power of Client Service Executive? No Care Teams Bottle House Cleaners Supervisor Relationship Specialty Start Date End Date Giovany Correa DO [address] [place] [address] PCP - General Family Medicine 10/30/20 documented as of this encounter
--- OUTSIDE RECORDS SUMMARY | 2023-11-06 02:43 | External Medical Summary | Summary of Care ---
Author Name Unknown Organization [facility] Address [address] [facility] [place] [address] Phone [phone] Care Team Providers Care Construction Mgr Name Role Phone Giovany Correa Primary Care Provider Reason for Visit * Reason Onset Date Comments Other 07/21/2023 Encounter Details Date Type Department Care Team (Late st Contact Info) Description 07/21/2023 Telephone Gastroenterology, [facility] [address] [place] [address] Cheryl Rowley MD [address] [place] [address] Other Allergies No known active allergiesdocumented as of this encounter (statuses as of 08/10/2023) Medications Medication Sig Dispensed Refills Start Date [...] 07/31/2010 Active MUCINEX D 120-1200 MG PO [id number]:Ch ronic rhinitis,Other chronic sinusitis,Hypertro phy of nasal [...] Stelara 90 MG/ML Subcutaneous Solution Prefilled Syringe ([employer]) INJECT 1 SYRINGE UNDER THE SKIN EVERY [...] as of this encounter (statuses as of 08/10/2023) Active Problems Problem Noted Date Diagnosed Date [...] as of this encounter (statuses as of 08/10/2023) Resolved Problems Problem Noted Date Diagnosed Date [...] as of this encounter (statuses as of 08/10/2023) Immunizations Name Administration Dates Next Due COVID-19 [...] encounter Miscellaneous Notes * Telephone Encounter - Kimmy Giles RN - 08/10/2023 1:39 PM EST Script routing noted. * Telephone Encounter - Kaitlyn Peters RN - 08/02/2023 9:45 AM EST [facility] again they [facility]. Please forward. * Telephone Encounter - Kaitlyn Peters RN - 07/23/2023 1:42 PM EST Called and LMOM * Telephone Encounter - Girish [facility] - 07/21/2023 2:08 PM EST Auto-routing to [facility] may be turned on since patient has [facility] and this is the preferred pharmacy. [facility] will be able to re-route on outreach. [facility] does offer shared documentation for ease of communication and increased adherence and is recommended especially for those followed by Johana. Electronically signed by Girish [facility] at 07/21/2023 2:17 PM EST * Addendum Note - Kaitlyn Peters RN - 07/21/2023 1:08 PM ESTAddended by: KAITLYN PETERS on: 07/21/2023 01:08 PM Modules accepted: Orders * Telephone Encounter - Kaitlyn Peters RN - 07/21/2023 1:05 PM EST Copied from another TE " Jeannette Redd OSA routed conversation to [facility] Nurse Pool/Class33 minutes ago (12:32 PM) Jeannette Redd OSA33 minutes ago (12:32 PM) NE Pt called to confirm that [facility] Stelara needs sent there " Girish can you assist ? * Telephone Encounter - Kaitlyn Peters RN - 07/21/2023 9:03 AM EST [...] Description 08/10/2023 3:45 PM EST Imaging Radiology [address], [address] [place] [address] 08/25/2023 11:00 AM EST Office Visit Orthopaedics [facility] [address] [place] [address] Sumi Mg MD [address] [place] [address] 09/01/2023 1:00 PM EST Imaging Radiology [facility] 132 [facility] [place] [address] 09/28/2023 2:40 PM EST Office Visit Gastroenterology, [facility] 132 [facility] [place] [address] Cheryl Rowley MD [address] [place] [address] 10/25/2023 4:00 PM EST Telemedicine Psychiatry, [facility] [address] [place] [address] Lester Serna CRNP [address] [place] [address] 02/09/2024 12:20 PM EDT Office Visit Family Practice [facility] 132 [facility] [place] [address] Giovany Correa DO [address] [facility] [place] [address] Health Maintenance Due Date Last Done Comments [...] the patient have Health Care Power of Stage Driver? No Code Status History Code Status Date [...] the patient have Health Care Power of Stage Driver? No Care Teams Construction Mgr Relationship Specialty Start Date End Date Giovany Correa DO [address] [place] [address] PCP - General Family Medicine 10/30/20 documented as of this encounter
--- OUTSIDE RECORDS SUMMARY | 2023-11-06 02:43 | External Medical Summary | Summary of Care ---
Author Name Unknown Organization [facility] Address [address] [facility] [place] [address] Phone [phone] Care Team Providers Care Deposit Clerk Name Role Phone Giovany Correa Primary Care Provider Reason for Visit * Reason Onset Date Comments Appointment 08/30/2023 Encounter Details Date Type Department Care Team (Late st Contact Info) Description 08/30/2023 Telephone Radiology [facility] [address] [place] [address] Glory Fletcher TECH Appointment Allergies No known active allergiesdocumented as of this encounter (statuses as of 08/30/2023) Medications Medication Sig Dispensed Refills Start Date End Date Status OSCAL 500/200 D-3 500-200 MG-UNIT PO TABSIndications:Timber Repairer hn's disease of colon (HCC) one tab [...] 07/31/2010 Active MUCINEX D 120-1200 MG PO [id number]:Chr onic rhinitis,Other chronic sinusitis,Hypertrop hy of nasal [...] Stelara 90 MG/ML Subcutaneous Solution Prefilled Syringe (Semantify) INJECT 1 SYRINGE UNDER THE SKIN EVERY 8 WEEKS. REFRIGERATE. DO NOT FREEZE. 1 mL 6 08/03/2023 Active Hospital, Clinic, or Other Facility Administered Medication Ordered Dose Route Frequency Start Date End Date Status albuterol sulfate (PROVENTIL) (2.5 MG/3ML) 0.083% inhalation solution 2.5 mgIndications:ESCOBEDO (dyspnea on exertion) 2.5 mg NEBULIZER PRN 11/15/2019 Act ran documented as of this encounter (statuses as of 08/30/2023) Active Problems Problem Noted Date Diagnosed Date [...] as of this encounter (statuses as of 08/30/2023) Resolved Problems Problem Noted Date Diagnosed Date [...] as of this encounter (statuses as of 08/30/2023) Immunizations Name Administration Dates Next Due COVID-19 [...] Description 09/01/2023 1:00 PM EST Imaging Radiology [facility] 1st Floor, [place] [address] [place] [address] 09/28/2023 2:40 PM EST Office Visit Gastroenterology, [facility] [address] [place] [address] Cheryl Rowley MD [address] [place] [address] 10/13/2023 1:45 PM EST Office Visit Orthopaedics [facility] [address] [place] [address] Sumi Mg MD [address] [place] [address] 10/25/2023 4:00 PM EST Telemedicine Psychiatry, [facility] [address] [place] [address] Lesetr Serna CRNP [address] [place] [address] 02/09/2024 12:20 PM EDT Office Visit Family [facility] [address] [place] [address] Giovany Correa, [address] [place] [address] Health Maintenance Due Date Last Done Comments [...] Code 10/13/2020 12:38 PM 10/20/2020 5:31 PM Thi s order reflects the patients wishes and were consensually agreed upon. Question Answer Comments Discussion of Advance Directives occurred with: Not Discussed Does the patient have a Living Will? No Does the patient have Health Care Power of Bridge Operator? No Code Status History Code Status [...] the patient have Health Care Power of Bridge Operator? No Care Teams Deposit Clerk Relationship Specialty Start Date End Date Giovany Correa DO [address] [place] [address] PCP - General Family Medicine 10/30/20 documented as of this encounter
--- OUTSIDE RECORDS SUMMARY | 2023-11-06 02:44 | External Medical Summary | Summary of Care ---
Author Name Unknown Organization [facility] Address [address] [facility] [place] [address] Phone [phone] Care Team Providers Care Caregiver Services Home Name Role Phone Giovany Correa Primary Care Provider Encounter Details Date Type Department Care Team (Late st Contact Info) Description 08/05/2023 Patient Reported Data Patient Survey Ortho OBERD Allergies No known active allergiesdocumented as of this encounter (statuses as of 08/05/2023) Medications Medication Sig Dispensed Refills Start Date End Date Status OSCAL 500/200 D-3 500-200 MG-UNIT PO TABSIndications:Hack Saw Operator hn's disease of colon (HCC) one [...] 07/31/2010 Active MUCINEX D 120-1200 MG PO [id number]:Chr onic rhinitis,Other chronic sinusitis,Hypertrop hy of nasal [...] Stelara 90 MG/ML Subcutaneous Solution Prefilled Syringe (Farmol) INJECT 1 SYRINGE UNDER THE SKIN EVERY [...] Description 08/10/2023 3:45 PM EST Imaging Radiology [address] [place] [address] 08/25/2023 11:00 AM EST Office Visit Orthopaedics [facility] [address] [facility] [place] [address] Sumi Mg MD [address] [place] [address] 09/01/2023 1:00 PM EST Imaging Radiology [address] [place] [address] 09/28/2023 2:40 PM EST Office Visit Gastroenterology, [facility] [address] [place] [address] Cheryl Rowley MD [address] [place] [address] 10/25/2023 4:00 PM EST Telemedicine Psychiatry, [facility] [address] [place] [address] Lester Serna CRNP [address] [place] [address] 02/09/2024 12:20 PM EDT Office Visit Family Practice [facility] [address] [place] [address] Giovany Correa DO [address] [place] [address] Health Maintenance Due Date Last Done Comments [...] the patient have Health Care Power of Water System Operator? No Code Status History Code Status [...] the patient have Health Care Power of Water System Operator? No Care Teams Caregiver Services Home Relationship Specialty Start Date End Date Giovany Correa DO [address] [place] [address] PCP - General Family Medicine 10/30/20 documented as of this encounter
--- OUTSIDE RECORDS SUMMARY | 2023-11-06 02:44 | External Medical Summary | Summary of Care ---
Author Name Unknown Organization [facility] Address [address] [facility] [place] [address] Phone [phone] Care Team Providers Care Water Chemist Name Role Phone Giovany Correa Primary Care Provider Reason for Referral * Evaluate & Treat - Unlimited Visits (Within 30 days (routine)) - Authorized Specialty Diagnoses / Procedures Referred By Contact Referred To Contact Sports Medicine / Orthopedics Diagnoses Arthritis of right acromioclavicular joint Mike Manuel MD [address] [place] [address] Referral ID Status Reason Start Date Expiration Date Visits Requested Visits Authorized [id number] Authorized Specialty Services Required [phone] Question Answer What body part is the patient being seen for? Shoulder What condition is the patient being seen for? Arthritis including related infection Referral Priority Within 30 days (routine) Where should this appointment be scheduled? [facility] Comments Diagnostic ultrasound-guided AC joint injection * Evaluate & Treat - Unlimited Visits (Within 10 days (routine)) - Authorized Specialty Diagnoses / Procedures Referred By Coco t Referred To Contact Physical Therapy / Physical Medicine And Rehab Diagnoses Rotator cuff impingement syndrome of right shoulder Mike Manuel MD [address] [place] [address] Referral ID Status Reason Start Date Expiration Date Visits Requested Visits Authorized [id number] Authorized Specialty Services Required [phone] Question Answer Referral Priority Within 10 days (routine) Where should this appointment be scheduled? [facility] Comments Right shoulder impingement Rotator cuff program scapular stabilizing exercises Elbow stretching and deep massage Home Thera-Band exercises Two to 3 times a week for 4-6 weeks Reason for Visit * Reason Comments Joint Pain Right shoulder * Evaluate & Treat - Unlimited Visits (Within 10 days (routine)) - Authorized Specialty Diagnoses / Procedures Referred By Contac t Referred To Contact Sports Medicine / Orthopedics Diagnoses Other instability, right shoulder Chronic elbow pain, right Giovany Correa DO [address] [place] [address] Referral ID Status Reason Start Date Expiration Date Visits Requested Visits Authorized [id number] Authorized Specialty Services Required [phone] Encounter Details Date Type Department Care Team (Latest Contact Info) Description 08/05/2023 9:00 AM EST Office Visit Orthopaedics [facility] [address] [place] [address] Mike Manuel MD [address] [place] [phone] Arthritis of right acromioclavicular joint*; Rotator cuff impingement syndrome of right shoulder Allergies No known active allergiesdocumented as of this encounter (statuses as of 08/05/2023) Medications Medication Sig Dispensed Refills Start Date End Date Status OSCAL 500/200 D-3 500-200 MG-UNIT PO TABSIndications: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 Arthritis of right acromioclavicular joint Yes Rotator cuff impingement syndrome of right shoulder [email or web address] Physical therapy Home Thera-Band program Ice in the evening for 20-30 minutes Referral to nonoperative sports medicine for diagnostic AC joint injection documented in this encounter Progress Notes * Mike Manuel MD - 08/05/2023 10:05 AM EST CHIEF COMPLAINT: Chief Complaint Patient presents with Joint Pain Right shoulder Impression: M19.011 Arthritis of right acromioclavicular joint (primary encounter diagnosis) M75.41 Rotator cuff impingement syndrome of right shoulder Plan: We discussed the diagnosis and treatment options with the patient today. At this time we recommend that the patient undergo a course of physical therapy for rotator cuff program. Patient would also benefit from physical therapy for the right elbow pain. Since her symptoms are localized around the AC joint she would benefit from an ultrasound-guided diagnostic AC joint injection by non operative sports medicine. Follow Up: Return for Referral to nonoperative sports medicine for AC joint injection. | For: Referral to nonoperative sports medicine for AC joint injection. If the patient fails physical therapy and the injection she may benefit from an MRI scan to evaluate for intra-articular pathology. Patient Instructions Encounter Diagnoses Name Primary? Arthritis of right acromioclavicular joint Yes Rotator cuff impingement syndrome of right shoulder [email or web address] Physical therapy Home Thera-Band program Ice in the evening for 20-30 minutes Referral to nonoperative sports medicine for diagnostic AC joint injection HISTORY OF PRESENT ILLNESS: Keiry Cruz is a 48 year old right hand dominant female who presents to orthopedic Sports Medicine for consultation at the request of Giovany Correa DO to us with a history of right shoulder pain . Patient states she has been having right shoulder pain for over a year. She she states proximally 3 months ago she was moving the shoulder and felt a pop. She has had no formal treatment for the shoulder pain over the last year. She denies any paresthesias. Of note patient is also complaining about right elbow pain. She localizes symptoms over the lateral aspect of the elbow. Wakes at night? yes. Physical Therapy? no. Injections? no. Nursing Notes: Mar Herron LPN 08/05/23 0854 Signed Referred by Giovany correa for right shoulder pain X 3 weeks. States her shoulder "popped" 3 weeks ago, wasn't painful at that time but has increased discomfort and reduced ROM. Pt Is RHD. Mar STONE Past Surgical History: Procedure Laterality Date ABDOMEN [...] performed by Cheryl Rowley MD at ENDOSCOPY [facility] COLONOSCOPY, DIAGNOSTIC (RECTUM) 01/23/2013 COLONOSCOPY FLEXIBLE PROXIMAL DIAGNOSTIC performed by Cheryl Rowley MD at ENDOSCOPY [facility] COLONOSCOPY, DIAGNOSTIC (RECTUM) 02/02/2013 COLONOSCOPY FLEXIBLE PROXIMAL DIAGNOSTIC performed by Cheryl Rowley MD at ENDOSCOPY [facility] COLONOSCOPY, DIAGNOSTIC (RECTUM) 07/28/2017 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/COLONOSCOPY FLEXIBLE PROXIMAL DIAGNOSTIC performed by Cheryl Rowley MD at ENDOSCOPY [facility] COLONOSCOPY, DIAGNOSTIC (RECTUM) 07/24/2019 Mild anal stenosis/COLONOSCOPY FLEXIBLE PROXIMAL DIAGNOSTIC performed by Cheryl Rowley MD at ENDOSCOPY [facility] COLONOSCOPY, DIAGNOSTIC (RECTUM) 08/20/2020 Anastamotic stricture / INPT [facility] COLONOSCOPY, DIAGNOSTIC (RECTUM) 07/22/2021 normal bx / COLONOSCOPY FLEXIBLE PROXIMAL DIAGNOSTIC performed by Cheryl Rowley MD at ENDOSCOPY [facility] COLONOSCOPY, DIAGNOSTIC (RECTUM) 07/03/2022 no evidence of active IBD, Crohns appears in remission / biopsies no specific pathologic change / follow up in clinic / COLONOSCOPY FLEXIBLE PROXIMAL DIAGNOSTIC performed by Charlie Ma ENDOSCOPY [facility] CYSTOSCOPY/INSERTION OF STENT 01/01/2010 CYSTOURETHROSCOPY WITH INSERTION URETERAL STENT performed by ZEV MAZA at OR [facility] EGD, FLEXIBLE, DIAGNOSTIC 09/08/2012 UPPER GI ENDOSCOPY DIAGNOSTIC performed by Cheryl Rowley MD at ENDOSCOPY [facility] INFERIOR TURBINATES ABLATION, INTRAMURAL Right 12/13/2007 CAUTERIZE MUSOSA OF INFERIOR TURBINATES INTRAMURAL performed by Lin Zabala MD at OR [facility] INFERIOR TURBINATES ABLATION, SUPERFICIAL Left 12/13/2007 CAUTERIZE MUSOSA OF INFERIOR TURBINATES SUPERFICIAL performed by Lin Zabala MD at OR [facility] LAPAROSCOPIC COLECTOMY PARTIAL WITH ANASTOMOSIS 01/01/2010 LAPAROSCOPIC COLECTOMY PARTIAL WITH ANASTOMOSIS performed by HALEY VAZQUEZ at OR [facility] LAPAROSCOPY DIAGNOSTIC N/A 10/13/2020 LAPAROSCOPY DIAGNOSTIC performed by Betsy Wallace MD at OR [facility] LOVONORGESTREL [employer] 52MG 10/2008 NASAL SEPTUM CARTILAGE [...] REPAIR NASAL VESTIBULAR STENOSIS performed by LIN AZBALA at OR [facility] REPAIR OF NASAL SEPTUM 04/06/2007 SEPTOPLASTY performed by LIN ZABALA at OR [facility] REPAIR OF NASAL SEPTUM N/A 12/13/2007 SEPTOPLASTY performed by Lin Zabala MD at OR [facility] UPPER GI ENDOSCOPY Review of patient's allergies indicates: No Known [...] Stelara 90 MG/ML Subcutaneous Solution Prefilled Syringe ([employer]) INJECT 1 SYRINGE UNDER THE SKIN EVERY 8 WEEKS. REFRIGERATE. DO NOT FREEZE. 1 mL 6 Current Facility-Administered Medications Medication Dose Route Frequency Provider Last Rate Last Admin albuterol sulfate (PROVENTIL) (2.5 MG/3ML) 0.083% inhalation solution 2.5 mg 2.5 mg Nebulizer PRN Micah Rodriguez MD Social History Socioeconomic History Marital status: Single Number of children: 0 Occupational History Occupation: [employer] Employer: [employer] Tobacco Use Smoking status: Every Day [...] Abstinence Comment: Post Menopausal Other Topics Concern Blood Transfusions No Seat Belt Yes Social History Narrative [employer] [employer] [facility] INFORMATION [...] Goodwin MD 07/31/2010 Social Determinants of Health Food Insecurity: No Food Insecurity (02/08/2020) Hunger Vital Sign Worried About Running Out of Food in the Last Year: Never true Ran Out of Food in the Last Year: Never true Family History Problem Relation Age of Onset Heart Disorder Mother Arthritis Mother Gastro-intestinal disorder Mother diverticulitis Allergies Father Asthma Father Transient ischemic attack Father Esophageal cancer Father Diabetes Sister 45 Arthritis Sister Crohn's disease Sister 46 Gastro-intestinal disorder Grandmother (Maternal) diverticulitis- Cancer Grandfather (Paternal) unknown primary Past Medical History: Diagnosis Date Chronic rhinitis Crohn's disease ([facility]) 1993 Crohn's disease of colon without complication (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 Reviewed the x-rays of the patient's right shoulder today. Those x-rays show evidence of mild proximal humeral head migration superiorly. There is also evidence of degeneration of the AC joint. No evidence of fracture. No evidencedislocation. PHYSICAL EXAM: General: generally well-nourished and in no acute distress HEENT: normocephalic, atraumatic, EOMI, sclera anicteric. Psych: mood and affect normal , cooperative Card: Peripheral pulses: normal in affected extremity (s) Resp: equal chest rise, non-tachypneic, non-labored breathing Skin: no rash, normal Neuro: Coordination: normal; Sensation: normal on affected extremity (s) Skin: normal. C-Spine evaluation: Does patient have neck symptoms and/or numbness/tingling in upper extremities: no Inspection: bilateral and symmetrical without apparent abnormality Shoulder ROM: ABD (170') - Right - 100 degrees Left - 170 degrees ER (40') - FROM Bilaterally Passive ER -FROM Bilaterally IR (T10) - right T12 left T10 FF (180') - Right - 100 degrees Left - 170 degrees Scapular elevation with forward flexion:negativeBilateral Tenderness/Location: yes - AC Inspection AC Joint Prominence: normal Cross-arm maneuver: positive Impingement sign: positive Sulcus sign: negative Lift-off test: negative Apprehension:negative Niagara's test: negative Load and shift: negative Speed's test: negative Drop-arm test: negative Instability Testing: Shoulder instability testing: normal bilaterally negative scapular winging negative scapular dyskinesis Strength: ABD: Right - 5/5 Left - 5/5 ER: Right - 5/5 Left - 5/5 IR: Right - 5/5 Left - 5/5 Biceps: Right - 5/5 Left - 5/5 "Empty can": Right - 5/5 Left - 5/5 Neurovascular assessment: negative for deficit Neck ROM: Extension 10 Flexion to the chest Spurlings test: Right negative Left negative Lateral bending and rotation pain: right negative left negative TTP: negative Ligamentous laxity testing: negative Bilateral Mike Manuel MD Orthopaedics [address] [address] Orthopedic Sports Medicine Surgery 08/05/2023 10:05 AM This chart was completed in part utilizing [employer] Speech Voice Recognition Software. Grammatical errors, random word insertions, pronoun errors, and incomplete sentences are an occasional consequence of this system due to software limitations, ambient noise, and hardware issues. Any formal questions or concerns about the content, text, or information contained within the body of this dictation should be directly addressed to the provider for clarification. documented in this encounter Nursing Notes * Mar Herron LPN - 08/05/2023 8:50 AM EST Referred by Giovany correa for right shoulder pain X 3 weeks. States her shoulder "popped" 3 weeks ago, wasn't painful at that time but has increased discomfort and reduced ROM. Pt Is RHD. Mar STONE documented in this encounter Plan of Treatment Upcoming Encounters Date Type Department Care Team (Late st Contact Info) Description 08/10/2023 3:45 PM EST Imaging Radiology [address] [facility] [place] [address] 08/25/2023 11:00 AM EST Office Visit Orthopaedics [facility] [address] [facility] [place] [address] Sumi Mg MD [address] [facility] [place] [address] 09/01/2023 1:00 PM EST Imaging Radiology [address] [facility] [place] [address] 09/28/2023 2:40 PM EST Office Visit Gastroenterology, [facility] [address] [facility] [place] [address] Cheryl Rowley MD 132 [facility] [place] [address] 10/25/2023 4:00 PM EST Telemedicine Psychiatry, [facility] [address] [place] [address] Lester Serna CRNP [address] [place] [address] 02/09/2024 12:20 PM EDT Office Visit Family Practice [facility] [address] [place] [address] Giovany Correa DO [address] [place] [address] Pending Results Name Type Priority Associated Diagnoses Date /Time XR SHOULDER, 2 OR MORE VIEWS Medical Imaging Routine 08/05/2023 9:10 AM EST Scheduled Referrals Name Type Priority Associated Diagnoses Orde r Schedule PHYSICAL THERAPY REFERRAL OP Referral Within 10 days (routine) Rotator cuff impingement syndrome of right shoulder Ordered: 08/05/2023 SPORTS MEDICINE REFERRAL OP Referral Within 30 days (routine) Arthritis of right acromioclavicular joint Ordered: 08/05/2023 Health Maintenance Due Date Last Done Comments [...] acromioclavicular joint- Primary Unspecified arthropathy, shoulder region Rotator cuff impingement syndrome of right shoulder documented in this encounter Advance Directives Latest [...] the patient have Health Care Power of Mortgage Processing Clerk? No Code Status History Code Status Date [...] the patient have Health Care Power of Mortgage Processing Clerk? No Care Teams Water Chemist Relationship Specialty Start Date End Date Giovany Correa DO [address] [place] [address] PCP - General Family Medicine 10/30/20 documented as of this encounter
--- OUTSIDE RECORDS SUMMARY | 2023-11-06 02:44 | External Medical Summary | Summary of Care ---
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 hn's disease of colon (HCC) one [...] 07/31/2010 Active MUCINEX D 120-1200 MG PO [id number]:Chr onic rhinitis,Other chronic sinusitis,Hypertrop hy of nasal [...] Stelara 90 MG/ML Subcutaneous Solution Prefilled Syringe ([employer]) INJECT 1 SYRINGE UNDER THE SKIN EVERY [...] Team (Late st Contact Info) Description 08/05/2023 9:00 AM EST Office Visit Orthopaedics [facility] [address] [place] [address] Mike Manuel MD [address] [place] [phone] 08/10/2023 3:45 PM EST Imaging Radiology [address] [facility] [place] [address] 09/01/2023 1:00 PM EST Imaging Radiology [address] [place] [address] 09/28/2023 2:40 PM EST Office Visit Gastroenterology, [facility] [address] [place] [address] Cheryl Rowley MD [address] [place] [address] 10/25/2023 4:00 PM EST Telemedicine Psychiatry, [facility] [address] [place] [address] Lester Serna CRNP [address] [place] [address] 02/09/2024 12:20 PM EDT Office Visit Family Practice [facility] [address] [place] [address] Giovany Correa, [address] [place] [address] Health Maintenance Due Date Last Done Comments [...] the patient have Health Care Power of Showroom Manager? No Code Status History Code Status [...] the patient have Health Care Power of Showroom Manager? No Care Teams Tacker Off Relationship Specialty Start Date End Date Giovany Correa DO [address] [place] [address] PCP - General Family Medicine 10/30/20 documented as of this encounter
--- OUTSIDE RECORDS SUMMARY | 2023-11-06 02:44 | External Medical Summary | Summary of Care ---
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 [address] [place] [address] Mike Manuel MD [address] [place] [phone] 08/10/2023 3:45 PM EST Imaging Radiology [address] [facility] [place] [address] 09/01/2023 1:00 PM EST Imaging Radiology [address] [place] [address] 09/28/2023 2:40 PM EST Office Visit Gastroenterology, [facility] [address] [place] [address] Cheryl Rowley MD [address] [place] [address] 10/25/2023 4:00 PM EST Telemedicine Psychiatry, [facility] [address] [place] [address] Lester Serna CRNP [address] [place] [address] 02/09/2024 12:20 PM EDT Office Visit Family Practice [facility] [address] [place] [address] Giovany Correa, [address] [place] [address] Health Maintenance Due Date Last Done Comments [...] the patient have Health Care Power of Core Stacker? No Code Status History Code Status Date [...] the patient have Health Care Power of Core Stacker? No Care Teams Tight Cooper Relationship Specialty Start Date End Date Giovany Correa DO [address] [place] [address] PCP - General Family Medicine 10/30/20 documented as of this encounter
--- OUTSIDE RECORDS SUMMARY | 2023-11-06 02:44 | External Medical Summary | Summary of Care ---
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 hn's disease of colon (HCC) one tab [...] 07/31/2010 Active MUCINEX D 120-1200 MG PO [id number]:Chr onic rhinitis,Other chronic sinusitis,Hypertrop hy of nasal [...] Stelara 90 MG/ML Subcutaneous Solution Prefilled Syringe ([employer]) INJECT 1 SYRINGE UNDER THE SKIN EVERY [...] 08/05/2023 9:00 AM EST Office Visit Orthopaedics [facility] [address] [place] [address] Mike Manuel MD [address] [place] [phone] 08/10/2023 3:45 PM EST Imaging Radiology [address] [facility] [place] [address] 09/01/2023 1:00 PM EST Imaging Radiology [address] [place] [address] 09/28/2023 2:40 PM EST Office Visit Gastroenterology, [facility] [address] [place] [address] Cheryl Rowley MD [address] [place] [address] 10/25/2023 4:00 PM EST Telemedicine Psychiatry, [facility] [address] [place] [address] Lester Serna CRNP [address] [place] [address] 02/09/2024 12:20 PM EDT Office Visit Family Practice [facility] [address] [place] [address] Giovany Correa, [address] [place] [address] Health Maintenance Due Date Last Done Comments [...] the patient have Health Care Power of Drum Drier? No Code Status History Code Status Date [...] the patient have Health Care Power of Drum Drier? No Care Teams Front Man Relationship Specialty Start Date End Date Giovany Correa DO [address] [place] [address] PCP - General Family Medicine 10/30/20 documented as of this encounter
--- OUTSIDE RECORDS SUMMARY | 2023-11-06 02:45 | External Medical Summary | Summary of Care ---
Author Name Unknown Organization [facility] Address [address] [facility] [place] [address] Phone [phone] Care Team Providers Care Va Underwriter Name Role Phone Giovany Correa Primary Care Provider Encounter Details Date Type Department Care Team (Late st Contact Info) Description 08/05/2023 Patient Reported Data Patient Survey Ortho OBERD Allergies No known active allergiesdocumented as of this encounter (statuses as of 08/05/2023) Medications Medication Sig Dispensed Refills Start Date End Date Status OSCAL 500/200 D-3 500-200 MG-UNIT PO TABSIndications:Door Clamper hn's disease of colon (HCC) one tab [...] 07/31/2010 Active MUCINEX D 120-1200 MG PO [id number]:Chr onic rhinitis,Other chronic sinusitis,Hypertrop hy of nasal [...] Stelara 90 MG/ML Subcutaneous Solution Prefilled Syringe ([employer]) INJECT 1 SYRINGE UNDER THE SKIN [...] 08/05/2023 9:00 AM EST Office Visit Orthopaedics [facility] [address] [place] [address] Mike Manuel MD [address] [place] [phone] 08/10/2023 3:45 PM EST Imaging Radiology [address] [facility] [place] [address] 09/01/2023 1:00 PM EST Imaging Radiology [address] [place] [address] 09/28/2023 2:40 PM EST Office Visit Gastroenterology, [facility] [address] [place] [address] Cheryl Rowley MD [address] [place] [address] 10/25/2023 4:00 PM EST Telemedicine Psychiatry, [facility] [address] [place] [address] Lester Serna CRNP [address] [place] [address] 02/09/2024 12:20 PM EDT Office Visit Family Practice [facility] [address] [place] [address] Giovany Correa, [address] [place] [address] Health Maintenance Due Date Last Done Comments [...] the patient have Health Care Power of Marketing Graphics Specialist? No Code Status History Code Status Date [...] the patient have Health Care Power of Marketing Graphics Specialist? No Care Teams Va Underwriter Relationship Specialty Start Date End Date Giovany Correa DO [address] [place] [address] PCP - General Family Medicine 10/30/20 documented as of this encounter
--- OUTSIDE RECORDS SUMMARY | 2023-11-06 02:45 | External Medical Summary | Summary of Care ---
Author Name Unknown Organization [facility] Address [address] [facility] [place] [address] Phone [phone] Care Team Providers Care Inspector Exhaust Emissions Name Role Phone Giovany Correa Primary Care Provider Encounter Details Date Type Department Care Team (Late st Contact Info) Description 08/05/2023 Patient Reported Data Patient Survey Ortho OBERD Allergies No known active allergiesdocumented as of this encounter (statuses as of 08/05/2023) Medications Medication Sig Dispensed Refills Start Date End Date Status OSCAL 500/200 D-3 500-200 MG-UNIT PO TABSIndications:Hazardous Material Technician hn's disease of colon (HCC) one tab [...] 07/31/2010 Active MUCINEX D 120-1200 MG PO [id number]:Chr onic rhinitis,Other chronic sinusitis,Hypertrop hy of nasal [...] Stelara 90 MG/ML Subcutaneous Solution Prefilled Syringe ([employer]) INJECT 1 SYRINGE UNDER THE SKIN EVERY [...] 08/05/2023 9:00 AM EST Office Visit Orthopaedics [facility] [address] [place] [address] Mike Manuel MD [address] [place] [phone] 08/10/2023 3:45 PM EST Imaging Radiology [address] [facility] [place] [address] 09/01/2023 1:00 PM EST Imaging Radiology [address] [place] [address] 09/28/2023 2:40 PM EST Office Visit Gastroenterology, [facility] [address] [place] [address] Cheryl Rowley MD [address] [place] [address] 10/25/2023 4:00 PM EST Telemedicine Psychiatry, [facility] [address] [place] [address] Lester Serna CRNP [address] [place] [address] 02/09/2024 12:20 PM EDT Office Visit Family Practice [facility] [address] [place] [address] Giovany Correa, [address] [place] [address] Health Maintenance Due Date Last Done Comments [...] the patient have Health Care Power of Box Packer? No Code Status History Code Status Date [...] the patient have Health Care Power of Box Packer? No Care Teams Inspector Exhaust Emissions Relationship Specialty Start Date End Date Giovany Correa DO [address] [place] [address] PCP - General Family Medicine 10/30/20 documented as of this encounter
--- OUTSIDE RECORDS SUMMARY | 2023-11-06 02:45 | External Medical Summary | Summary of Care ---
Author Name Unknown Organization [facility] Address [address] [facility] [place] [address] Phone [phone] Care Team Providers Care Carriage Setter Name Role Phone Giovany Correa Primary Care Provider Encounter Details Date Type Department Care Team (Late st Contact Info) Description 08/05/2023 Patient Reported Data Patient Survey Ortho OBERD Allergies No known active allergiesdocumented as of this encounter (statuses as of 08/05/2023) Medications Medication Sig Dispensed Refills Start Date End Date Status OSCAL 500/200 D-3 500-200 MG-UNIT PO TABSIndications:Certified Retinal Angiographer hn's disease of colon (HCC) one tab [...] 07/31/2010 Active MUCINEX D 120-1200 MG PO [id number]:Chr onic rhinitis,Other chronic sinusitis,Hypertrop hy of nasal [...] Stelara 90 MG/ML Subcutaneous Solution Prefilled Syringe ([employer]) INJECT 1 SYRINGE UNDER THE SKIN EVERY [...] 08/05/2023 9:00 AM EST Office Visit Orthopaedics [facility] [address] [place] [address] Mike Manuel MD [address] [place] [phone] 08/10/2023 3:45 PM EST Imaging Radiology [address] [facility] [place] [address] 09/01/2023 1:00 PM EST Imaging Radiology [address] [place] [address] 09/28/2023 2:40 PM EST Office Visit Gastroenterology, [facility] [address] [place] [address] Cheryl Rowley MD [address] [place] [address] 10/25/2023 4:00 PM EST Telemedicine Psychiatry, [facility] [address] [place] [address] Lester Serna CRNP [address] [place] [address] 02/09/2024 12:20 PM EDT Office Visit Family Practice [facility] [address] [place] [address] Giovany Correa, [address] [place] [address] Health Maintenance Due Date Last Done Comments [...] the patient have Health Care Power of Caramel Coloring Operator? No Code Status History Code Status [...] the patient have Health Care Power of Caramel Coloring Operator? No Care Teams Carriage Setter Relationship Specialty Start Date End Date Giovany Correa DO [address] [place] [address] PCP - General Family Medicine 10/30/20 documented as of this encounter
--- OUTSIDE RECORDS SUMMARY | 2023-11-06 02:45 | External Medical Summary | Summary of Care ---
Author Name Unknown Organization [facility] Address [address] [facility] [place] [address] Phone [phone] Care Team Providers Care Pricing Coordinator Name Role Phone Giovany Correa Primary Care Provider Reason for Visit * Reason Comments Depression * - Authorized Specialty Diagnoses / Procedures Referred By Contac t Referred To Contact Referral ID Status Reason Start Date Expiration Date V isits Requested Visits Authorized [id number] Authorized 02/20/2023 02/19/2024 [id number] Encounter Details Date Type Department Care Team (Latest Contact Info) Description 08/04/2023 10:30 AM EST [facility] [address] [place] [address] Lester Serna CRNP [address] [place] [address] Major depressive disorder, recurrent episode, moderate (HCC)*; PTSD (post-traumatic stress disorder); ADHD (attention deficit hyperactivity disorder), combined type Allergies No known active allergiesdocumented as of this encounter (statuses as of 08/04/2023) Medications Medication Sig Dispensed Refills Start Date End Date Status OSCAL 500/200 D-3 500-200 MG-UNIT PO TABSIndications:Bed Machine Operator hn's disease of colon (HCC) one [...] 07/31/2010 Active MUCINEX D 120-1200 MG PO [id number]:Chr onic rhinitis,Other chronic sinusitis,Hypertrop hy of nasal [...] once daily 90 Tablet 1 06/25/2023 Active Amphetamine-Dextroa mphetamine 5 MG Oral Tablet (Adderall) Take 1 Tablet by mouth 2 times a day in the morning and at noon. 60 Tablet 0 06/25/2023 Active Gabapentin 600 MG Oral Tablet (Neurontin) Take 1 Tablet by mouth at bedtime. 30 Tablet 1 07/23/2023 Active LORazepam 0.5 MG Oral Tablet (Ativan)Indications :Anxiety Take 1 Tablet by mouth in the morning and 1 Tablet at noon and 1 Tablet before bedtime. 90 Tablet 0 08/03/2023 Active Stelara 90 MG/ML Subcutaneous Solution Prefilled Syringe (Localist) INJECT 1 SYRINGE UNDER THE SKIN EVERY 8 WEEKS. REFRIGERATE. DO NOT FREEZE. 1 mL 6 08/03/2023 Active Hospital, Clinic, or Other Facility Administered Medication Ordered Dose Route Frequency Start Date End Date Status albuterol sulfate (PROVENTIL) (2.5 MG/3ML) 0.083% inhalation solution 2.5 mgIndications:ESCOBEDO (dyspnea on exertion) 2.5 mg NEBULIZER PRN 11/15/2019 Act ran documented as of this encounter (statuses as of 08/04/2023) Active Problems Problem Noted Date Diagnosed Date [...] as of this encounter (statuses as of 08/04/2023) Resolved Problems Problem Noted Date Diagnosed Date [...] as of this encounter (statuses as of 08/04/2023) Immunizations Name Administration Dates Next Due COVID-19 [...] Progress Notes * Lester Serna CRNP - 08/04/2023 10:42 AM EST Patient Location: HOME. After connecting through [email or web address] (formerly [email or web address])o, patient was verified with two unique identifiers. Patient (or authorized legal artists' booking representative) was then informed that this was a Telemedicine visit and being conducted confidentially over secure lines. Methods to assure confidentiality were taken. Patient acknowledged consent and understanding of privacy and security of the Telemedicine visit. The patient agreed to participate. PSYCHOTHERAPY & MEDICATION MANAGEMENT RETURN VISIT NOTE Psychiatry, Marla Montero [address] [facility] [place] [address] 08/04/2023 Keiry Cruz CHIEF COMPLAINT: Depression INTERVAL HISTORY: Keiry Cruz is a 48 year old female presenting today for a follow-up appointment. Pt reports she was hospitalized in April 2023 reportedly due to a small bowel obstruction and gallstones, and struggled coming home and withdrawing from Dilaudid that she received while hospitalized. "I was a mess.. it was not me.. I hadn't had that happen since back in the late s." She discussed with her therapist that it may be prudent to schedule hospital followup appointments with psychiatry and therapy given her recent experiences post-discharge. She has followup testing scheduled tomonitor this. More recently she is feeling "really good, actually, I've been feeling really well." Feels med regimen is "in a really good place." Has some days "where I'm a little down but I'm able to pick myself back up." She does have some concerns about Christmastime upcoming, as her father passed last year 08/17/23. "I'm more worried about everybody else than myself." She has been talking to her two sisters about how they can help their mother thru this time. "We'll get through it together.. we have a real close family." MEDICATION SIDE EFFECTS: denies OBJECTIVE DATA: COLUMBIA-SUICIDE [...] do anything to end your life? denies Moderate Risk: Reviewed crisis plan with patient. Discussed risk/protective factors and reasons forliving. Discussed removal of means. Crisis Plan Step 1: Signs that I [...] got bad I would get help, to [place] or [place] somewhere" Step 5: Professionals or agencies I can contact during a crisis (clinician name and phone number): Additional Professional Resources: 1. Local Crisis Services: For [facility] and [facility] call TAPLine at . [facility] Emergency Number: 2. [facility] Division of Psychiatry: [phone] 3. National Suicide Prevention Lifeline: 988 4. National Crisis Text Line: Text HOME to 222283 5. 911 or proceed to the nearest emergency room (Safety Plan Treatment Manual to Reduce Suicide Risk: [place] Version (Femi & Harrison, 2008)) ROS EXAM: Negative except as described above SUBSTANCE USE: Struggling to quit smoking cigarettes over the past year RELEVANT CHANGES IN PAST PSYCHIATRIC, MEDICAL, FAMILY [...] by mouth once daily 90 Tablet 1 Amphetamine-Dextroamphetamine 5 MG Oral Tablet (Adderall) Take 1 Tablet by mouth 2 times a day in the morning and at noon. 60 Tablet 0 Gabapentin 600 MG Oral Tablet (Neurontin) Take 1 Tablet by mouth at bedtime. 30 Tablet 1 LORazepam 0.5 MG Oral Tablet (Ativan) Take 1 Tablet by mouth in the morning and 1 Tablet at noon and 1 Tablet before bedtime. 90 Tablet 0 Stelara 90 MG/ML Subcutaneous Solution Prefilled Syringe (Localist) INJECT 1 SYRINGE UNDER THE SKIN EVERY [...] depression symptoms FORMULATION: Keiry Cruz is a 47 year old female with presenting symptoms of depression, anxiety, PTSD. Symptoms started in adolescence. Denies hx SA, inpatient, D&A. Raised by mother and father. 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 [...] Drug Monitoring Program in compliance with the [facility] regulations before prescribing a controlled substance. Crisis [...] as needed. Time Spent on Visit total: 20 minutes - including preparing to see the patient, reviewing history, performing evaluation, counseling/educating patient, ordering medications/tests, documenting clinical information. Lester Serna, MSN, THIERRY, PMHNP- Nurse Practitioner - Outpatient Psychiatry [facility] [place] 08/04/2023 documented in this encounter Plan of Treatment Upcoming Encounters Date Type Department Care Team (Late st Contact Info) Description 08/05/2023 9:00 AM EST Office Visit Orthopaedics [facility] [address] [place] [address] Mike Small MD [address] [place] [address] 08/10/2023 3:45 PM EST Imaging Radiology [address] [place] [address] 09/01/2023 1:00 PM EST Imaging Radiology [address] [place] [address] 09/28/2023 2:40 PM EST Office Visit [facility]enterology, [facility] [place] [address] Cheryl Rowley MD [address] [place] [address] 10/25/2023 4:00 PM EST Telemedicine Psychiatry, [facility] [address] [place] [address] Lester Serna CRNP [address] [place] [address] 02/09/2024 12:20 PM EDT Office Visit Family Practice [facility] [address] [place] [address] Giovany Correa DO [address] [facility] [place] [address] Health Maintenance Due Date Last Done Comments Albumin/Creatinine Ratio 1991 Zoster Vaccines (1 of 2) 1992 HPV/Co-Test 2003 Hepatitis B (2 of 3 - 19+ 3-dose series) 08/28/2010 07/31/2010 Mammogram 09/11/2016 09/11/2015 Cervical Cancer Screening 01/28/2018 Pap Smear 01/28/2018 01/28/2015, 06/03/2015, 12/21/2012, Additional history exists Cologuard 2018 Fecal [...] PTSD (post-traumatic stress disorder) Posttraumatic stress disorder ADHD (attention deficit hyperactivity disorder), combined type Attention deficit disorder with hyperactivity documented in this encounter Advance Directives Latest [...] the patient have Health Care Power of Sound Technician? No Code Status History Code Status Date [...] the patient have Health Care Power of Sound Technician? No Care Teams Pricing Coordinator Relationship Specialty Start Date End Date Giovany Correa DO [address] [place] [address] PCP - General Family Medicine 10/30/20 documented as of this encounter
--- OUTSIDE RECORDS SUMMARY | 2023-11-06 02:45 | External Medical Summary | Summary of Care ---
Author Name Unknown Organization [facility] Address [address] [place] [address] Phone [phone] Care Team Providers Care Combination Man Name Role Phone Giovany Correa Primary Care Provider Reason for Visit * Reason Onset Date Comments Medication Refill 08/02/2023 Encounter Details Date Type Department Care Team (Late st Contact Info) Description 08/02/2023 Refill Psychiatry, [place] [address] [place] [address] Angel Smart MD [address], [place] [id number] Allergies No known active allergiesdocumented as of [...] 07/31/2010 Active MUCINEX D 120-1200 MG PO [id number]:Ch ronic rhinitis,Other chronic sinusitis,Hypertro phy of nasal [...] at bedtime. 30 Tablet 1 07/23/2023 Active Amphetamine-Dextro amphetamine 5 MG Oral Tablet (Adderall) Take 1 Tablet by mouth 2 times a day in the morning and at noon. 60 Tablet 0 08/04/2023 Active Amphetamine-Dextro amphetamine 5 MG Oral Tablet [...] Stelara 90 MG/ML Subcutaneous Solution Prefilled Syringe ([email or web address]) INJECT 1 SYRINGE UNDER THE SKIN EVERY [...] Telephone Encounter - Lester Serna CRNP - 08/04/2023 11:51 AM ESTSigned Prescriptions: Disp Refills Amphetamine-Dextroamphetamine 5 MG Oral Ta*60 Tab*0 Sig: Take 1 Tablet by mouth 2 times a day in the morning and at noon. Authorizing Provider: LESTER SERNA * Telephone Encounter - Maye Araiza OSA - 08/03/2023 7:25 AM ESTPending Prescriptions: Disp Refills Amphetamine-Dextroamphetamine 5 MG Oral Ta*60 Tab*0 Sig: Take 1 Tablet by mouth 2 times a day in the morning and at noon. * Telephone Encounter - Maye Araiza OSA - 08/03/2023 7:25 AM EST Refill request from patient ([place]) for Adderall 5mg. Medication last filled on 06/25/23 with 0 refills. Patient last seen on 01/26/23 with return appointment scheduled for 08/04/23. Patient had 1 cancelled appointments and 2 NO SHOW appointments. documented in this encounter Plan of Treatment Upcoming Encounters Date Type Department Care Team (Late st Contact Info) Description 08/05/2023 9:00 AM EST Office Visit Orthopaedics [facility] [place] [address] Mike Manuel MD [address] [place] [phone] 08/10/2023 3:45 PM EST Imaging Radiology [address] [place] [address] 09/01/2023 1:00 PM EST Imaging Radiology [address] [place] [address] 09/28/2023 2:40 PM EST Office Visit Gastroenterology, [facility] [address] [place] [address] Cheryl Rowley MD [address] [place] [address] 10/25/2023 4:00 PM EST Telemedicine Psychiatry, [facility] [address] [place] [address] Lester Serna CRNP [address] [place] [address] 02/09/2024 12:20 PM EDT Office Visit Family Practice [facility] [address] [place] [address] Giovany Correa DO [address] [place] [address] Health Maintenance Due Date Last Done Comments [...] the patient have Health Care Power of Research Program Assistant? No Code Status History Code Status Date [...] the patient have Health Care Power of Research Program Assistant? No Care Teams Combination Man Relationship Specialty Start Date End Date Giovany Correa DO [address] [place] [address] PCP - General Family Medicine 10/30/20 documented as of this encounter
--- OUTSIDE RECORDS SUMMARY | 2023-11-06 02:45 | External Medical Summary | Summary of Care ---
Author Name Unknown Organization [facility] Address [address] [facility] [place] [address] Phone [phone] Care Team Providers Care Inspecting Machine Adjuster Name Role Phone Giovany Correa Primary Care Provider Encounter Details Date Type Department Care Team (Late st Contact Info) Description 08/05/2023 Patient Reported Data Patient Survey Ortho OBERD Allergies No known active allergiesdocumented as of this encounter (statuses as of 08/05/2023) Medications Medication Sig Dispensed Refills Start Date End Date Status OSCAL 500/200 D-3 500-200 MG-UNIT PO TABSIndications:Cafe Or Restaurant Manager hn's disease of colon (HCC) one [...] 07/31/2010 Active MUCINEX D 120-1200 MG PO [id number]:Chr onic rhinitis,Other chronic sinusitis,Hypertrop hy of nasal [...] Stelara 90 MG/ML Subcutaneous Solution Prefilled Syringe (foodpanda / hellofood) INJECT 1 SYRINGE UNDER THE SKIN EVERY [...] [facility] [address] [place] [address] Mike Manuel MD [address] [place] [phone] 08/10/2023 3:45 PM EST Imaging Radiology [address] [facility] [place] [address] 09/01/2023 1:00 PM EST Imaging Radiology [address] [place] [address] 09/28/2023 2:40 PM EST Office Visit Gastroenterology, [facility] [address] [place] [address] Cheryl Rowley MD [address] [place] [address] 10/25/2023 4:00 PM EST Telemedicine Psychiatry, [facility] [address] [place] [address] Lester Serna CRNP [address] [place] [address] 02/09/2024 12:20 PM EDT Office Visit Family Practice [facility] [address] [place] [address] Giovany Correa, [address] [place] [address] Health Maintenance Due Date Last Done Comments [...] the patient have Health Care Power of Hammerer Helper? No Code Status History Code Status Date [...] the patient have Health Care Power of Hammerer Helper? No Care Teams Inspecting Machine Adjuster Relationship Specialty Start Date End Date Giovany Correa DO [address] [place] [address] PCP - General Family Medicine 10/30/20 documented as of this encounter
--- OUTSIDE RECORDS SUMMARY | 2023-11-06 02:45 | External Medical Summary | Summary of Care ---
Author Name Unknown Organization [facility] Address [address] [facility] [place] [address] Phone [phone] Care Team Providers Care Automatic Drilling Machine Operator Name Role Phone Giovany Correa Primary Care Provider Reason for Visit * Reason Onset Date Comments Medication Refill 08/03/2023 Encounter Details Date Type Department Care Team (Late st Contact Info) Description 08/03/2023 Refill [facility]ology, [facility] [place] [address] Cheryl Rowley MD 132 [facility] [place] [address] Allergies No known active allergiesdocumented as of this encounter (statuses as of 08/03/2023) Medications Medication Sig Dispensed Refills Start Date [...] 07/31/2010 Active MUCINEX D 120-1200 MG PO [id number]:Ch ronic rhinitis,Other chronic sinusitis,Hypertro phy of nasal [...] once daily 90 Tablet 1 06/25/2023 Active Amphetamine-Dextro amphetamine 5 MG Oral Tablet (Adderall) Take 1 Tablet by mouth 2 times a day in the morning and at noon. 60 Tablet 0 06/25/2023 Active Gabapentin 600 MG Oral Tablet (Neurontin) Take 1 Tablet by mouth at bedtime. 30 Tablet 1 07/23/2023 Active Stelara 90 MG/ML Subcutaneous Solution Prefilled Syringe (Ustekinumab) INJECT 1 SYRINGE UNDER THE SKIN EVERY 8 WEEKS. REFRIGERATE. DO NOT FREEZE. 1 mL 6 08/03/2023 Active LORazepam 0.5 MG Oral Tablet (Ativan)Indication s:Anxiety Take 1 Tablet by mouth in the morning and 1 Tablet at noon and 1 Tablet before bedtime. 90 Tablet 0 06/28/2023 3 Discontinue d(Refill) Stelara 90 MG/ML Subcutaneous Solution Prefilled Syringe (Ustekinumab) INJECT 1 SYRINGE UNDER THE SKIN EVERY [...] as of this encounter (statuses as of 08/03/2023) Active Problems Problem Noted Date Diagnosed Date [...] as of this encounter (statuses as of 08/03/2023) Resolved Problems Problem Noted Date Diagnosed Date [...] as of this encounter (statuses as of 08/03/2023) Immunizations Name Administration Dates Next Due COVID-19 [...] encounter Miscellaneous Notes * Telephone Encounter - Chu Lyles RPh - 08/03/2023 11:38 AM EST Re-routing Liane to [facility] Specialty per patient request. Chu Lyles, Pharm D Specialty Clinical Pharmacist [facility] 08/03/2023,11:39 AM documented in this encounter Plan of Treatment Upcoming Encounters Date Type Department Care Team (Late st Contact Info) Description 08/04/2023 8:30 AM EST Imaging Radiology [address] 132 [facility] [place] [address] 08/04/2023 10:30 AM EST Telemedicine Psychiatry, [facility] 132 [facility] [place] [address] Lester Serna CRNP [address] [place] [address] 08/05/2023 9:00 AM EST Office Visit Orthopaedics [facility] [address] [place] [address] Mike Manuel MD [address] [place] [phone] 08/10/2023 3:45 PM EST Imaging Radiology [facility] 1st [facility] [place] [facility] [place] [address] 09/01/2023 1:00 PM EST Imaging Radiology [address], [place] 132 [facility] [place] [address] 09/28/2023 2:40 PM EST Office Visit Gastroenterology, [facility] [place] [address] Cheryl Rowley MD [address] [place] [address] 02/09/2024 12:20 PM EDT Office Visit Family Practice [facility] 132 [facility] [place] [address] Giovany Correa DO [address] [facility] [place] [address] Health Maintenance Due Date Last Done Comments [...] the patient have Health Care Power of Logistics Loss Prevention Manager? No Code Status History Code Status [...] the patient have Health Care Power of Logistics Loss Prevention Manager? No Care Teams Automatic Drilling Machine Operator Relationship Specialty Start Date End Date Giovany Correa DO [address] [place] [address] PCP - General Family Medicine 10/30/20 documented as of this encounter
--- OUTSIDE RECORDS SUMMARY | 2023-11-06 02:46 | External Medical Summary | Summary of Care ---
Author Name Unknown Organization [facility] Address [address] [facility] [place] [address] Phone [phone] Care Team Providers Care Regroover Name Role Phone Giovany Correa Primary Care Provider Reason for Visit * Reason Onset Date Comments Other 07/21/2023 Encounter Details Date Type Department Care Team (Late st Contact Info) Description 07/21/2023 Telephone Gastroenterology, [facility] [address] [place] [address] Cheryl Rowley MD [address] [place] [address] Other Allergies No known active allergiesdocumented as of this encounter (statuses as of 07/30/2023) Medications Medication Sig Dispensed Refills Start Date [...] 07/31/2010 Active MUCINEX D 120-1200 MG PO [id number]:Ch ronic rhinitis,Other chronic sinusitis,Hypertro phy of nasal [...] at noon. 60 Tablet 0 06/25/2023 Active LORazepam 0.5 MG Oral Tablet (Ativan)Indication s:Anxiety Take 1 Tablet by mouth in the morning and 1 Tablet at noon and 1 Tablet before bedtime. 90 Tablet 0 06/28/2023 Active Stelara 90 MG/ML Subcutaneous Solution Prefilled Syringe (SmartRx) INJECT 1 SYRINGE UNDER THE SKIN EVERY 8 WEEKS. REFRIGERATE. DO NOT FREEZE. 1 mL 6 07/19/2023 Active Gabapentin 600 MG Oral Tablet (Neurontin) Take 1 Tablet by mouth at bedtime. 30 Tablet 1 05/10/2023 3 Discontinue d(Refill) Hospital, Clinic, or Other Facility Administered Medication Ordered Dose Route Frequency Start Date End Date Status albuterol sulfate (PROVENTIL) (2.5 MG/3ML) 0.083% inhalation solution 2.5 mgIndications:ESCOBEDO (dyspnea on exertion) 2.5 mg NEBULIZER PRN 11/15/2019 Act ran documented as of this encounter (statuses as of 07/30/2023) Active Problems Problem Noted Date Diagnosed Date Restless legs syndrome (RLS) 06/30/2022 Gastrostomy status 06/30/2022 Hypokalemia 06/30/2022 Crohn's disease of colon without complication Controlled substance agreement signed 08/28/2015 Vitamin D deficiency 11/21/2014 Overview: October 2014 = 21. Discuss with PCP. ICD-10 update of inactive term Tobacco use disorder Depression with anxiety documented as of this encounter (statuses as of 07/30/2023) Resolved Problems Problem Noted Date Diagnosed Date [...] as of this encounter (statuses as of 07/30/2023) Immunizations Name Administration Dates Next Due COVID-19 [...] LMOM * Telephone Encounter - Girish Ulrich RPh - 07/21/2023 2:08 PM EST Auto-routing to [facility] within [facility] may be turned on since patient has [facility] and this is the preferred pharmacy. [facility] will be able to re-route on outreach. [facility] does offer shared documentation for ease of communication and increased adherence and is recommended especially for those followed by [facility]. * Addendum Note - Evy Peters RN - 07/21/2023 1:08 PM ESTAddended by: EVY PETERS on: 07/21/2023 01:08 PM Modules accepted: Orders * Telephone Encounter - Evy Peters RN - 07/21/2023 1:05 PM EST Copied from another TE " Jeannette Redd OSA routed conversation to [facility] Nurse Pool/Class33 minutes ago (12:32 PM) Jeannette [...] 09/28/2023 2:40 PM EST Office Visit Gastroenterology, [facility] [address] [place] [address] Cheryl Rowley MD [address] [place] [address] Health Maintenance Due Date Last Done Comments Zoster Vaccines (1 of 2) 1992 HPV/Co-Test [...] 12/01/2021 Influenza Vaccine (FLU shot) (#1) 2023 Diabetes Screening 01/08/2026 01/08/2023, 0 11/26/2021, 09/13/2021, [...] the patient have Health Care Power of Military Science Instructor? No Code Status History Code Status Date [...] the patient have Health Care Power of Military Science Instructor? No Care Teams Regroover Relationship Specialty Start Date End Date Giovany Correa DO [address] [place] [address] PCP - General Family Medicine 10/30/20 documented as of this encounter
--- OUTSIDE RECORDS SUMMARY | 2023-11-06 02:46 | External Medical Summary | Summary of Care ---
Author Name Unknown Organization [facility] Address [address] [facility] [place] [address] Phone [phone] Care Team Providers Care Surgery Technician Name Role Phone Giovany Correa DO Primary Care Provider Reason for Referral * Evaluate & Treat - Unlimited Visits (Within 10 days (routine)) - Authorized Specialty Diagnoses / Procedures Referred By Coco newman Referred To Contact Sports Medicine / Orthopedics Diagnoses Other instability, right shoulder Chronic elbow pain, right Giovany Correa DO [address] [place] [address] Referral ID Status Reason Start Date Expiration Date Visits Requested Visits Authorized [id number] Authorized Specialty Services Required 3 [phone] Question Answer Referral Priority Within 10 days (routine) Where should this appointment be scheduled? [facility] What body part is the patient being seen for? Shoulder What condition is the patient being seen for? Sprain/Strain/Tear/Other Encounter Details Date Type Department Care Team (Late st Contact Info) Description 08/03/2023 8:00 AM EST Telemedicine Family [facility] [address] [place] [address] Giovany Correa DO [address] [place] [address] Other instability, right shoulder*; Gastrostomy status (HCC); Immunodeficiency due to drugs ; Hypokalemia; Restless legs syndrome (RLS); Hypertensive urgency; Chronic elbow pain, right Allergies No known active allergiesdocumented as of this encounter (statuses as of 08/03/2023) Medications Medication Sig Dispensed Refills Start Date End Date Status OSCAL 500/200 D-3 500-200 MG-UNIT PO TABSIndications:Expanded Function 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 REFRIGERATE. DO NOT FREEZE. 1 mL 6 07/19/2023 Active Gabapentin 600 MG Oral Tablet (Neurontin) Take 1 Tablet by mouth at bedtime. 30 Tablet 1 07/23/2023 Active Hospital, Clinic, or Other Facility Administered [...] as of this encounter Progress Notes * Giovany Correa, - 08/03/2023 8:09 AM EST Images from the original note were not included. Assessment and Plan Other instability, right shoulder Advise f/u with xray and further eval in person For R shoulder pain - XR SHOULDER, 2 OR MORE VIEWS - [facility]ORTS [facility]ICINE REFERRAL OP Gastrostomy status (HCC) stable Immunodeficiency due to drugs Hypokalemia Restless legs syndrome (RLS) Hypertensive urgency Chronic elbow pain, right - SPORTS MEDICINE REFERRAL OP History of Present Illness Keiry Cruz is a 48 year old female that presents for No chief complaint on file. Presents via video today For ongoing R shoulder and elbow pain Did PT in past, helped some, but pain has returned No major injuries Physical Exam There were no vitals filed for this visit. Physical Exam Neurological: Mental Status: She is alert and oriented to person, place, and time. Wrap-Up Follow Up: Return in about 6 months (around 02/02/2024). Time: Total time today was 25 minutes excluding any time spent in the performance of separately billed services. Telemedicine: Patient location: HOME. I was in a hospital or clinic location. After connecting through televideo,patient was verified with two unique identifiers. Patient (or authorized legal bilingual sales representative) was then informed that this was a Telemedicine visit and being conducted confidentially over secure lines. Methods to assure confidentiality were taken. Patient acknowledged consent and understanding of pr ivacy and security of the Telemedicine visit. The patient agreed to participate. documented in this encounter Plan of Treatment Upcoming Encounters Date Type Department Care Team (Late st Contact Info) Description 08/04/2023 10:30 AM EST Telemedicine Psychiatry [facility] 132 [facility] [place] [address] Lester Serna CRNP 132 [facility] [place] [address] 08/10/2023 3:45 PM EST Imaging Radiology [address] [facility] [place] [address] 09/01/2023 1:00 PM EST Imaging Radiology [address], [place] 132 [facility] [place] [address] 09/28/2023 2:40 PM EST Office Visit Gastroenterology, [facility] [address] [place] [address] Cheryl Rowley MD [address] [place] [address] Scheduled Orders Name Type Priority Associated Diagnoses Orde r Schedule XR SHOULDER, 2 OR MORE VIEWS Medical Imaging Routine Other instability, right shoulder Ordered: 08/03/2023 Scheduled Referrals Name Type Priority Associated Diagnoses Orde r Schedule SPORTS MEDICINE REFERRAL OP Referral Within 10 days (routine) Other instability, right shoulder Chronic elbow pain, right Ordered: 08/03/2023 Health Maintenance Due Date Last Done Comments [...] as of this encounter Visit Diagnoses Diagnosis Other instability, right shoulder- Primary Gastrostomy status (HCC) Gastrostomy status Immunodeficiency due to drugs Hypokalemia Hypopotassemia Restless legs syndrome (RLS) Hypertensive urgency Unspecified essential hypertension Chronic elbow pain, right documented in this encounter Advance Directives Latest [...] the patient have Health Care Power of Gumming Machine Operator? No Code Status History Code Status [...] the patient have Health Care Power of Gumming Machine Operator? No Care Teams Surgery Technician Relationship Specialty Start Date End Date Giovany Correa DO [address] [place] [address] PCP - General Family Medicine 10/30/20 documented as of this encounter
--- OUTSIDE RECORDS SUMMARY | 2023-11-06 02:46 | External Medical Summary | Summary of Care ---
Author Name Unknown Organization [facility] Address [address] [facility] [place] [address] Phone [phone] Care Team Providers Care Shellfish Sorter Name Role Phone Giovany Correa Primary Care Provider Reason for Visit * Reason Onset Date Comments Other 07/21/2023 Encounter Details Date Type Department Care Team (Late st Contact Info) Description 07/21/2023 Telephone Gastroenterology, [facility] [address] [employer] [address] [place] [address] Cheryl Rowley MD [address] [employer] [place] [address] Other Allergies No known active allergiesdocumented as [...] 07/31/2010 Active MUCINEX D 120-1200 MG PO [id number]:Ch ronic rhinitis,Other chronic sinusitis,Hypertro phy of nasal [...] Stelara 90 MG/ML Subcutaneous Solution Prefilled Syringe (Nu3) INJECT 1 SYRINGE UNDER THE SKIN EVERY [...] - 07/21/2023 2:08 PM EST Auto-routing to [facility] may be turned on since patient has [facility] and this is the preferred pharmacy. P will be able to re-route on outreach. [facility] does offer shared documentation for ease of [...] " Jeannette Redd OSA routed conversation to [facility] Nurse Pool/Class33 minutes ago (12:32 PM) Jeannette [...] Description 08/04/2023 8:30 AM EST Imaging Radiology [facility]st [facility] 132 [facility] [place] [address] 08/04/2023 10:30 AM EST Telemedicine Psychiatry, [facility] 132 [facility] [place] [address] Lester Serna CRNP 132 [facility] [place] [address] 08/05/2023 9:00 AM EST Office Visit Orthopaedics [facility] 132 [facility] [place] [address] Mike Manuel MD [address] [place] [address] 08/10/2023 3:45 PM EST Imaging Radiology [address] [place] [address] 09/01/2023 1:00 PM EST Imaging Radiology [address], [place] 132 [facility] [place] [address] 09/28/2023 2:40 PM EST Office Visit Gastroenterology, [facility] 132 [facility] [place] [address] Cheryl Rowley MD [address] [place] [address] 02/09/2024 12:20 PM EDT Office Visit Family Practice [facility] [place] [address] Giovany Correa DO [address] [place] [address] Health Maintenance Due Date Last Done Comments [...] the patient have Health Care Power of Emanations Analysis Technician? No Code Status History Code Status [...] the patient have Health Care Power of Emanations Analysis Technician? No Care Teams Shellfish Sorter Relationship Specialty Start Date End Date Giovany Correa DO [address] [place] [address] PCP - General Family Medicine 10/30/20 documented as of this encounter
--- OUTSIDE RECORDS SUMMARY | 2023-11-06 02:46 | External Medical Summary | Summary of Care ---
Author Name Unknown Organization [facility] Address [address] [facility] [place] [address] Phone [phone] Care Team Providers Care Case Liner Name Role Phone Giovany Correa Primary Care Provider Reason for Visit * - Authorized Specialty Diagnoses / Procedures Referred By Contac t Referred To Contact Referral ID Status Reason Start Date Expiration Date V isits Requested Visits Authorized [id number] Authorized 02/20/2023 02/19/2024 999 999 Encounter Details Date Type Department Care Team (Late st Contact Info) Description 07/27/2023 8:30 AM EST Telemedicine Psychiatry [facility] [address] [place] [address] Lester Serna CRNP [address] [place] [address] No Show for psych appt* Allergies No known active allergiesdocumented as of this encounter (statuses as of 07/27/2023) Medications Medication Sig Dispensed Refills Start Date End Date Status OSCAL 500/200 D-3 500-200 MG-UNIT PO TABSIndications:Instrument Operator hn's disease of colon (HCC) one [...] 07/31/2010 Active MUCINEX D 120-1200 MG PO [id number]:Chr onic rhinitis,Other chronic sinusitis,Hypertrop hy of nasal [...] as of this encounter (statuses as of 07/27/2023) Active Problems Problem Noted Date Diagnosed Date Restless legs syndrome (RLS) 06/30/2022 Gastrostomy status 06/30/2022 Hypokalemia 06/30/2022 Crohn's disease of colon without complication Controlled substance agreement signed 08/28/2015 Vitamin D deficiency 11/21/2014 Overview: October 2014 = . Discuss with PCP. ICD-10 update of inactive term Tobacco use disorder Depression with anxiety documented as of this encounter (statuses as of 07/27/2023) Resolved Problems Problem Noted Date Diagnosed Date [...] as of this encounter (statuses as of 07/27/2023) Immunizations Name Administration Dates Next Due COVID-19 [...] Progress Notes * Lester Serna CRNP - 07/27/2023 8:46 AM EST Patient failed to keep appointment. documented in this encounter Plan of Treatment Upcoming Encounters Date Type Department Care Team (Late st Contact Info) Description 09/28/2023 2:40 PM EST Office Visit Gastroenterology, [facility] [address] [place] [address] Cheryl Rowley MD [address] [place] [address] Health Maintenance Due Date Last Done Comments [...] as of this encounter Visit Diagnoses Diagnosis No Show for psych appt- Primary documented in this encounter Advance Directives Latest [...] the patient have Health Care Power of International Logistics Manager? No Code Status History Code Status [...] the patient have Health Care Power of International Logistics Manager? No Care Teams Case Liner Relationship Specialty Start Date End Date Giovany Correa DO [address] [place] [address] PCP - General Family Medicine 10/30/20 documented as of this encounter
--- OUTSIDE RECORDS SUMMARY | 2023-11-06 02:46 | External Medical Summary | Summary of Care ---
Author Name Unknown Organization [facility] Address [address] [facility] [place] [address] Phone [phone] Care Team Providers Care Structural Iron Worker Name Role Phone Giovany Correa Primary Care Provider Reason for Visit * Reason Onset Date Comments Other 07/21/2023 Encounter Details Date Type Department Care Team (Late st Contact Info) Description 07/21/2023 Telephone Gastroenterology, [facility] [address] [facility] [address] [place] [address] Cheryl Rowley MD [address] [facility] [place] [address] Other Allergies No known active allergiesdocumented as of this encounter (statuses as of 08/02/2023) Medications Medication Sig Dispensed Refills Start Date [...] 07/31/2010 Active MUCINEX D 120-1200 MG PO [id number]:Ch ronic rhinitis,Other chronic sinusitis,Hypertro phy of nasal [...] Stelara 90 MG/ML Subcutaneous Solution Prefilled Syringe ([employer] INJECT 1 SYRINGE UNDER THE SKIN EVERY [...] as of this encounter (statuses as of 08/02/2023) Active Problems Problem Noted Date Diagnosed Date Restless legs syndrome (RLS) 06/30/2022 Gastrostomy status 06/30/2022 Hypokalemia 06/30/2022 Crohn's disease of colon without complication Controlled substance agreement signed 08/28/2015 Vitamin D deficiency 11/21/2014 Overview: October 2014 = 21. Discuss with PCP. ICD-10 update of inactive term Tobacco use disorder Depression with anxiety documented as of this encounter (statuses as of 08/02/2023) Resolved Problems Problem Noted Date Diagnosed Date [...] as of this encounter (statuses as of 08/02/2023) Immunizations Name Administration Dates Next Due COVID-19 [...] encounter Miscellaneous Notes * Telephone Encounter - Kaitlyn Peters RN - 08/02/2023 9:45 AM EST [facility] and pt called [facility]. Please forward. * Telephone Encounter - Kaitlyn Peters RN - 07/23/2023 1:42 PM EST Called and LMOM * Telephone Encounter - Girish Ulrich RPh - 07/21/2023 2:08 PM EST Auto-routing to [facility] within [facility] may be turned on since patient has GHP and this is the preferred pharmacy. P will be able to re-route on outreach. [facility] does offer shared documentation for ease of communication and increased adherence and is recommended especially for those followed by Johana. * Addendum Note - Kaitlyn Peters RN - 07/21/2023 1:08 PM ESTAddended by: KAITLYN PETERS on: 07/21/2023 01:08 PM Modules accepted: Orders * Telephone Encounter - Kaitlyn Peters RN - 07/21/2023 1:05 PM EST Copied from another TE " Jeannette Redd OSA routed conversation to [facility] Nurse Pool/Class33 minutes ago (12:32 [...] Info) Description 08/04/2023 10:30 AM EST Telemedicine Psychiatry, [facility] [address] [facility] [place] [address] Lester Serna CRNP 132 [facility] [place] [address] 08/10/2023 3:45 PM EST Imaging Radiology [facility] [address] [place] [address] 08/28/2023 8:40 AM EST Telemedicine Family Practice [facility] [address] [facility] [place] [address] Mikhail Rendon MD [address] [place] [address] 09/01/2023 1:00 PM EST Imaging Radiology [facility] [address] [facility] [address] [place] [address] 09/28/2023 2:40 PM EST Office Visit Gastroenterology, [facility] [address] [facility] [place] [address] Cheryl Rowley MD [address] [place] [address] Health Maintenance Due Date Last Done Comments [...] the patient have Health Care Power of Erp Manager? No Code Status History Code Status [...] the patient have Health Care Power of Erp Manager? No Care Teams Structural Iron Worker Relationship Specialty Start Date End Date Giovany Correa DO 132 [place] [address] PCP - General Family Medicine 10/30/20 documented as of this encounter
--- OUTSIDE RECORDS SUMMARY | 2023-11-06 02:46 | External Medical Summary | Summary of Care ---
Author Name Unknown Organization [facility] Address [address] [facility] [place] [address] Phone [phone] Care Team Providers Care Pump Press Operator Name Role Phone Howie Correa DO Primary Care Provider Reason for Visit * Reason Onset Date Comments Medication Refill 08/02/2023 Encounter Details Date Type Department Care Team (Late st Contact Info) Description 08/02/2023 Refill Family [facility] [address] [place] [address] Howie Correa DO [address] [place] [address] Anxiety Allergies No known active allergiesdocumented as of [...] 07/31/2010 Active MUCINEX D 120-1200 MG PO [id number]:Ch ronic rhinitis,Other chronic sinusitis,Hypertro phy of nasal [...] 07/23/2023 Active LORazepam 0.5 MG Oral Tablet (Ativan)Indication s:Anxiety Take 1 Tablet by mouth in the morning and 1 Tablet at noon and 1 Tablet before bedtime. 90 Tablet 0 08/03/2023 Active LORazepam 0.5 MG Oral Tablet (Ativan)Indication s:Anxiety Take 1 Tablet by mouth in the morning and 1 Tablet at noon and 1 Tablet before bedtime. 90 Tablet 0 06/28/2023 3 Discontinue d(Refill) Stelara 90 MG/ML Subcutaneous Solution Prefilled Syringe ([employer]) INJECT 1 SYRINGE UNDER THE SKIN EVERY [...] encounter Miscellaneous Notes * Telephone Encounter - Howie Correa DO - 08/03/2023 11:40 AM EST Signed Prescriptions: Disp Refills LORazepam 0.5 MG Oral Tablet (Ativan) 90 Tab*0 Sig: Take 1 Tablet by mouth in the morning and 1 Tablet at noon and 1 Tablet before bedtime. Authorizing Provider: HOWIE CORREA * Telephone Encounter - Gerri Lim [facility] - 08/03/2023 10:51 AM ESTPending Prescriptions: Disp Refills LORazepam 0.5 MG Oral Tablet (Ativan) 90 Tab*0 Sig: Take 1 Tablet by mouth in the morning and 1 Tablet at noon and 1 Tablet before bedtime. * Telephone Encounter - Gerri Lim [facility] - 08/03/2023 10:49 AM EST I have reviewed the patients controlled substance dispensing history in the Prescription Drug Monitoring Program in compliance with the [facility] regulations before prescribing a controlled substance. PDMP checked on 08/03/2023. Pending Prescriptions: Disp Refills LORazepam 0.5 MG Oral Tablet (Ativan) 90 Tab*0 Sig: Take 1 Tablet by mouth in the morning and 1 Tablet at noon and 1 Tablet before bedtime. Last Visit: 01/12/2023 (in office), 06/30/2022 (telemedicine) Next Visit: 02/09/2024 Date medication was last filled: 06/28 Date medication is due for refill: 07/27 Pharmacy: [id number] Is this request for a controlled substance? Yes and Urine Drug Screen Not completed Toxicology results: Results for orders placed or performed in visit on 02/28/21 TOXICOLOGY, URINE SCREEN W/ CONFIRMATION Result Value Amphetamine Positive (A) Benzodiazepines Negative Cannabinoids Negative Cocaine Metabolite Negative Hydrocodone / Hydromorphone Refer to confirmation results (A) Methadone Metabolite Negative Morphine / Codeine Negative Oxycodone / Oxymorphone Negative Narrative Cutoff Concentrations: Drug Level Amphetamines [...] results can be found in Results Review. Please approve if appropriate. Thank you, Gerri Lim, PharmD Clinical Pharmacist [facility] ([facility]) 08/03/23 10:49 AM [phone] documented in this encounter Plan of Treatment Upcoming Encounters Date Type Department Care Team (Late st Contact Info) Description 08/04/2023 8:30 AM EST Imaging Radiology [address] 132 [facility] [place] [address] 08/04/2023 10:30 AM EST Telemedicine Psychiatry, [facility] 132 [facility] [place] [address] Lester Serna CRNP [address] [place] [address] 08/05/2023 9:00 AM EST Office Visit Orthopaedics [facility] 132 [facility] [place] [address] Mike Manuel MD [address] [place] [address] 08/10/2023 3:45 PM EST Imaging Radiology [address] 132 [facility] [place] [address] 09/01/2023 1:00 PM EST Imaging Radiology [address] 132 [facility] [place] [address] 09/28/2023 2:40 PM EST Office Visit Gastroenterology, [facility] 132 [facility] [place] [address] Cheryl Rowley MD [address] [place] [address] 02/09/2024 12:20 PM EDT Office Visit Family [facility] [address] [place] [address] Howie Correa DO [address] [place] [address] Health Maintenance Due Date Last Done Comments [...] as of this encounter Visit Diagnoses Diagnosis Anxiety Anxiety state, unspecified documented in this encounter Advance Directives Latest [...] the patient have Health Care Power of Process Specialist? No Code Status History Code Status [...] the patient have Health Care Power of Process Specialist? No Care Teams Pump Press Operator Relationship Specialty Start Date End Date Howie Correa DO [facility] [place] [address] PCP - General Family Medicine 10/30/20 documented as of this encounter
--- OUTSIDE RECORDS SUMMARY | 2023-11-06 02:46 | External Medical Summary | Summary of Care ---
Author Name Unknown Organization [facility] Address [address] [facility] [place] [address] Phone [phone] Care Team Providers Care Button Grader Name Role Phone Giovany Correa Primary Care Provider Reason for Visit * Reason Onset Date Comments Medication Refill 08/02/2023 Encounter Details Date Type Department Care Team (Late st Contact Info) Description 08/02/2023 Refill Gastroenterology, [facility] [address] [place] [address] Cheryl Rowley MD [facility] [place] [address] Allergies No known active allergiesdocumented as of this encounter (statuses as of 08/02/2023) Medications Medication Sig Dispensed Refills Start Date End Date Status OSCAL 500/200 D-3 500-200 MG-UNIT PO TABSIndications: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) one tab [...] 07/31/2010 Active MUCINEX D 120-1200 MG PO [id number]:Chr onic rhinitis,Other chronic sinusitis,Hypertrop hy of nasal [...] Stelara 90 MG/ML Subcutaneous Solution Prefilled Syringe ([employer]) INJECT 1 SYRINGE UNDER THE SKIN EVERY [...] Description 08/04/2023 10:30 AM EST Telemedicine Psychiatry, [facility] 132 [place] [address] Lester Serna CRNP 132 [place] [address] 08/10/2023 3:45 PM EST Imaging Radiology [address] 132 [place] [address] 09/01/2023 1:00 PM EST Imaging Radiology [address] 132 [place] [address] 09/28/2023 2:40 PM EST Office Visit Gastroenterology, [facility] 132 [place] [address] Cheryl Rowley MD [address] [place] [address] Health Maintenance Due Date Last Done Comments [...] the patient have Health Care Power of Sales Officer? No Code Status History Code Status [...] the patient have Health Care Power of Sales Officer? No Care Teams Button Grader Relationship Specialty Start Date End Date Giovany Correa DO [address] [place] [address] PCP - General Family Medicine 10/30/20 documented as of this encounter
--- OUTSIDE RECORDS SUMMARY | 2023-11-06 02:46 | External Medical Summary | Summary of Care ---
Author Name Unknown Organization [facility] Address [address] [place] [address] Phone [phone] Care Team Providers Care Steam Tender Name Role Phone Giovany Correa Primary Care Provider Reason for Visit * Reason Onset Date Comments Order Request 08/02/2023 Mammogram Encounter Details Date Type Department Care Team (Late st Contact Info) Description 08/02/2023 Telephone Radiology, [facility] [address] [place] [address] Services, Scheduling [address] [place] [address] Order Request (Mammogram ) Allergies No known active allergiesdocumented as of this encounter (statuses as of 08/02/2023) Medications Medication Sig Dispensed Refills Start Date End Date Status OSCAL 500/200 D-3 500-200 MG-UNIT PO TABSIndications:Bowling Ball Molder hn's disease of colon (HCC) one tab [...] 07/31/2010 Active MUCINEX D 120-1200 MG PO [id number]:Chr onic rhinitis,Other chronic sinusitis,Hypertrop hy of nasal [...] Stelara 90 MG/ML Subcutaneous Solution Prefilled Syringe ([employer]) INJECT 1 SYRINGE UNDER THE SKIN EVERY [...] encounter Miscellaneous Notes * Telephone Encounter - Umu Garay OSA - 08/02/2023 10:02 AM EST [place] patient is scheduled for a Mammogram. Please place order. Thank you documented in this encounter Plan of Treatment Upcoming Encounters Date Type Department Care Team (Late st Contact Info) Description 08/04/2023 10:30 AM [facility] 132 [facility] [place] [address] Lester Serna CRNP 132 [facility] [place] [address] 08/10/2023 3:45 PM EST Imaging Radiology [address] [facility] [place] [address] 08/28/2023 8:40 AM EST Telemedicine Family Practice [facility] [address] [facility] [place] [address] Mikhail Rendon MD [facility] [place] [address] 09/01/2023 1:00 PM EST Imaging Radiology [address], [place] [facility] [place] [address] 09/28/2023 2:40 PM EST Office Visit Gastroenterology, [facility] [address] [facility] [place] [address] Cheryl Rowley MD 132 [facility] [place] [address] Scheduled Orders Name Type Priority Associated Diagnoses Orde r Schedule MAMMOGRAM SCREENING GILMAR BILATERAL Medical Imaging Routine Encounter for screening mammogram for breast cancer Expected: 08/02/2023, Expires: 09/02/2024 Health Maintenance Due Date Last Done Comments [...] this encounter Visit Diagnoses Diagnosis Encounter for screening mammogram for breast cancer- Primary documented in this encounter Advance Directives [...] the patient have Health Care Power of Sawmilling Operator? No Code Status History Code Status [...] the patient have Health Care Power of Sawmilling Operator? No Care Teams Steam Tender Relationship Specialty Start Date End Date Giovany Correa DO 132 [place] [address] PCP - General Family Medicine 10/30/20 documented as of this encounter
--- OUTSIDE RECORDS SUMMARY | 2023-11-06 02:46 | External Medical Summary | Summary of Care ---
Author Name Unknown Organization [facility] Address [address] [facility] [place] [address] Phone [phone] Care Team Providers Care Gang Pusher Name Role Phone Giovany Correa Primary Care Provider Reason for Visit * Reason Onset Date Comments Medication Refill 07/23/2023 Encounter Details Date Type Department Care Team (Late st Contact Info) Description 07/23/2023 Refill Marla Freedman [address] [place] [address] Lester Serna CRNP [address] [place] [address] Allergies No known active allergiesdocumented as of this encounter (statuses as of 07/23/2023) Medications Medication Sig Dispensed Refills Start Date [...] 07/31/2010 Active MUCINEX D 120-1200 MG PO [id number]:Ch ronic rhinitis,Other chronic sinusitis,Hypertro phy of nasal [...] Stelara 90 MG/ML Subcutaneous Solution Prefilled Syringe ([facility]) INJECT 1 SYRINGE UNDER THE SKIN EVERY 8 WEEKS. REFRIGERATE. DO NOT FREEZE. 1 mL 6 07/19/2023 Active Gabapentin 600 MG Oral Tablet (Neurontin) Take 1 Tablet by mouth at bedtime. 30 Tablet 1 07/23/2023 Active Gabapentin 600 MG Oral Tablet (Neurontin) [...] as of this encounter (statuses as of 07/23/2023) Active Problems Problem Noted Date Diagnosed Date Restless legs syndrome (RLS) 06/30/2022 Gastrostomy status 06/30/2022 Hypokalemia 06/30/2022 Crohn's disease of colon without complication Controlled substance agreement signed 08/28/2015 Vitamin D deficiency 11/21/2014 Overview: October 2014 = . Discuss with PCP. ICD-10 update of inactive term Tobacco use disorder Depression with anxiety documented as of this encounter (statuses as of 07/23/2023) Resolved Problems Problem Noted Date Diagnosed Date [...] as of this encounter (statuses as of 07/23/2023) Immunizations Name Administration Dates Next Due COVID-19 [...] encounter Miscellaneous Notes * Telephone Encounter - Lin Laguna CRNP - 07/23/2023 3:02 PM ESTSigned Prescriptions: Disp Refills Gabapentin 600 MG Oral Tablet (Neurontin) 30 Tab*1 Sig: Take 1 Tablet by mouth at bedtime. Authorizing Provider: LIN LAGUNA * Telephone Encounter - Maye Araiza OSA - 07/23/2023 2:45 PM EST Pharmacy requesting refill on Gabapentin 600mg. Medication was last filled on 05/10/23 with 1 refills. Patient last seen on 01/26/23 with return appointment scheduled for 07/27/23. Patient had 1 cancelled appointments and 1 NO SHOW appointments. documented in this encounter Plan of Treatment Upcoming Encounters Date Type Department Care Team (Late st Contact Info) Description 07/27/2023 8:30 AM EST Telemedicine Psychiatry, [facility] [address] [place] [address] Lester Serna CRNP [address] [place] [address] 09/28/2023 2:40 PM EST Office Visit Gastroenterology, [facility] 132 [place] [address] Cheryl Rowley MD [address] [place] [address] Health Maintenance Due Date Last Done Comments [...] the patient have Health Care Power of Pastry Cook Apprentice? No Code Status History Code Status Date [...] the patient have Health Care Power of Pastry Cook Apprentice? No Care Teams Gang Pusher Relationship Specialty Start Date End Date Giovany Correa DO [address] [place] [address] PCP - General Family Medicine 10/30/20 documented as of this encounter
--- OUTSIDE RECORDS SUMMARY | 2023-11-06 02:46 | External Medical Summary | Summary of Care ---
Author Name Unknown Organization [facility] Address [address] [facility] [place] [address] Phone [phone] Care Team Providers Care Occupational Therapist Assistants Name Role Phone Giovany Correa Primary Care Provider Reason for Visit * Reason Onset Date Comments Other 07/21/2023 Encounter Details Date Type Department Care Team (Late st Contact Info) Description 07/21/2023 Telephone Gastroenterology, [facility] [address] [place] [address] Cheryl Rowley MD [address] [place] [address] Other Allergies No known active allergiesdocumented as [...] 07/31/2010 Active MUCINEX D 120-1200 MG PO [id number]:Ch ronic rhinitis,Other chronic sinusitis,Hypertro phy of nasal [...] Stelara 90 MG/ML Subcutaneous Solution Prefilled Syringe ([employer]) INJECT 1 SYRINGE UNDER THE SKIN [...] - 07/21/2023 2:08 PM EST Auto-routing to [facility] within [facility] may be turned on since patient has [facility] and this is the preferred pharmacy. P will be able to re-route on outreach. [facility] does offer shared documentation for ease of [...] " Jeannette Redd OSA routed conversation to [facility] Nurse Pool/Class33 minutes ago (12:32 PM) Jeannette [...] 09/28/2023 2:40 PM EST Office Visit Gastroenterology, [facility] 132 [place] [address] Cheryl Rowley MD 132 [place] [address] Health Maintenance Due Date Last Done Comments [...] the patient have Health Care Power of Jack Machine Operator? No Code Status History Code [...] the patient have Health Care Power of Jack Machine Operator? No Care Teams Occupational Therapist Assistants Relationship Specialty Start Date End Date Giovany Correa DO [address] [place] [address] PCP - General Family Medicine 10/30/20 documented as of this encounter
--- OUTSIDE RECORDS SUMMARY | 2023-11-06 02:46 | External Medical Summary | Summary of Care ---
Author Name Unknown Organization [facility] Address [address] [facility] [place] [address] Phone [phone] Care Team Providers Care V Belt Inspector Name Role Phone Giovany Correa Primary Care Provider Reason for Visit * Reason Onset Date Comments Other 07/21/2023 Encounter Details Date Type Department Care Team (Late st Contact Info) Description 07/21/2023 Telephone Gastroenterology, [facility] [address] [place] [address] Cheryl Rowley MD [address] [place] [address] Other Allergies No known active allergiesdocumented as of this encounter (statuses as of 07/23/2023) Medications Medication Sig Dispensed Refills Start Date End Date Status OSCAL 500/200 D-3 500-200 MG-UNIT PO TABSIndications:Risk Specialist hn's disease of colon (HCC) one [...] 07/31/2010 Active MUCINEX D 120-1200 MG PO [id number]:Chr onic rhinitis,Other chronic sinusitis,Hypertrop hy of nasal [...] ELBOW 350 g 3 03/29/2023 Active Gabapentin 600 MG Oral Tablet (Neurontin) Take 1 Tablet by mouth at bedtime. 30 Tablet 1 05/10/2023 Active Gabapentin 300 MG Oral Capsule (Neurontin) [...] Stelara 90 MG/ML Subcutaneous Solution Prefilled Syringe ([employer]) INJECT 1 SYRINGE UNDER THE SKIN EVERY 8 WEEKS. REFRIGERATE. DO NOT FREEZE. 1 mL 6 07/19/2023 Active Hospital, Clinic, or Other Facility Administered [...] 07/21/2023 2:08 PM EST Auto-routing to [facility] may be turned on since patient has [facility] and this is the preferred pharmacy. [facility] will be able to re-route on outreach. [facility] does offer shared documentation for [...] " Jeannette Redd OSA routed conversation to [facility] Nurse Pool/Class33 minutes ago (12:32 PM) [...] Description 07/27/2023 8:30 AM EST Telemedicine Psychiatry, [facility] 132 [place] [address] Lester Serna CRNP [address] [place] [address] 09/28/2023 2:40 PM EST Office Visit Gastroenterology, [facility] 132 [place] [address] Cheryl Rowley MD [address] [place] [address] Health Maintenance Due Date Last Done Comments [...] the patient have Health Care Power of Irrigation Teacher? No Code Status History Code Status Date [...] the patient have Health Care Power of Irrigation Teacher? No Care Teams V Belt Inspector Relationship Specialty Start Date End Date Giovany Correa DO [address] [place] [address] PCP - General Family Medicine 10/30/20 documented as of this encounter
--- OUTSIDE RECORDS SUMMARY | 2023-11-06 02:47 | External Medical Summary | Summary of Care ---
Author Name Unknown Organization [facility] Address [address] [facility] [place] [address] Phone [phone] Care Team Providers Care Promotions Associate Name Role Phone Giovany Correa Primary Care Provider Reason for Visit * Reason Onset Date Comments Other 07/21/2023 Encounter Details Date Type Department Care Team (Late st Contact Info) Description 07/21/2023 Telephone Gastroenterology, [facility] [address] [place] [address] Cheryl Rowley MD [address] [place] [address] Other Allergies No known active allergiesdocumented as of this encounter (statuses as of 07/21/2023) Medications Medication Sig Dispensed Refills Start Date End Date Status OSCAL 500/200 D-3 500-200 MG-UNIT PO TABSIndications:Wheat Farmer hn's disease of colon (HCC) one tab [...] 07/31/2010 Active MUCINEX D 120-1200 MG PO [id number]:Chr onic rhinitis,Other chronic sinusitis,Hypertrop hy of nasal [...] Stelara 90 MG/ML Subcutaneous Solution Prefilled Syringe ([employer]) INJECT 1 SYRINGE UNDER THE SKIN EVERY 8 WEEKS. REFRIGERATE. DO NOT FREEZE. 1 mL 6 07/19/2023 Active Hospital, Clinic, or Other Facility Administered Medication Ordered Dose Route Frequency Start Date End Date Status albuterol sulfate (PROVENTIL) (2.5 MG/3ML) 0.083% inhalation solution 2.5 mgIndications:ESCOBEDO (dyspnea on exertion) 2.5 mg NEBULIZER PRN 11/15/2019 Act ran documented as of this encounter (statuses as of 07/21/2023) Active Problems Problem Noted Date Diagnosed Date Restless legs syndrome (RLS) 06/30/2022 Gastrostomy status 06/30/2022 Hypokalemia 06/30/2022 Crohn's disease of colon without complication Controlled substance agreement signed 08/28/2015 Vitamin D deficiency 11/21/2014 Overview: October 2014 = 21. Discuss with PCP. ICD-10 update of inactive term Tobacco use disorder Depression with anxiety documented as of this encounter (statuses as of 07/21/2023) Resolved Problems Problem Noted Date Diagnosed Date [...] as of this encounter (statuses as of 07/21/2023) Immunizations Name Administration Dates Next Due COVID-19 [...] 07/21/2023 2:08 PM EST Auto-routing to [facility] within [facility] may be turned on since patient has [facility] and this is the preferred pharmacy. P will be able to re-route on outreach. [facility] does offer shared documentation for ease [...] " Jeannette Redd OSA routed conversation to [facility] Nurse [place]/Class33 minutes ago (12:32 PM) Jeannette Redd OSA33 [...] Description 07/27/2023 8:30 AM EST Telemedicine Psychiatry, [facility] [address] [place] [address] Lester Serna CRNP [address] [place] [address] 09/28/2023 2:40 PM EST Office Visit Gastroenterology, [facility] [address] [place] [address] Cheryl Rowley MD [address] [place] [address] Health Maintenance Due Date Last Done Comments [...] the patient have Health Care Power of Bait Packer? No Code Status History Code Status [...] the patient have Health Care Power of Bait Packer? No Care Teams Promotions Associate Relationship Specialty Start Date End Date Giovany Correa DO [address] [place] [address] PCP - General Family Medicine 10/30/20 documented as of this encounter
--- OUTSIDE RECORDS SUMMARY | 2023-11-06 02:47 | External Medical Summary | Summary of Care ---
Author Name Unknown Organization [facility] Address [address] [facility] [place] [address] Phone [phone] Care Team Providers Care Global Supply Chain Director Name Role Phone Giovany Correa Primary Care Provider Reason for Visit * Reason Onset Date Comments Medication Refill 07/19/2023 Encounter Details Date Type Department Care Team (Late st Contact Info) Description 07/19/2023 Refill Gastroenterology, [facility] [place] [address] Julienne Bernabe MD 132 [facility] [place] [address] Allergies No known active allergiesdocumented as of this encounter (statuses as of 07/19/2023) Medications Medication Sig Dispensed Refills Start Date [...] 07/31/2010 Active MUCINEX D 120-1200 MG PO [id number]:Ch ronic rhinitis,Other chronic sinusitis,Hypertro phy of nasal [...] NOT FREEZE. 1 mL 6 07/19/2023 Active Stelara 90 MG/ML Subcutaneous Solution Prefilled Syringe (Ustekinumab) INJECT 1 SYRINGE UNDER THE SKIN EVERY 8 WEEKS. REFRIGERATE. DO NOT FREEZE. 1 mL 6 07/17/2022 3 Discontinue d(Refill) Hospital, Clinic, or Other Facility Administered Medication Ordered Dose Route Frequency Start Date End Date Status albuterol sulfate (PROVENTIL) (2.5 MG/3ML) 0.083% inhalation solution 2.5 mgIndications:ESCOBEDO (dyspnea on exertion) 2.5 mg NEBULIZER PRN 11/15/2019 Act ran documented as of this encounter (statuses as of 07/19/2023) Active Problems Problem Noted Date Diagnosed Date Restless legs syndrome (RLS) 06/30/2022 Gastrostomy status 06/30/2022 Hypokalemia 06/30/2022 Crohn's disease of colon without complication Controlled substance agreement signed 08/28/2015 Vitamin D deficiency 11/21/2014 Overview: October 2014 = 21. Discuss with PCP. ICD-10 update of inactive term Tobacco use disorder Depression with anxiety documented as of this encounter (statuses as of 07/19/2023) Resolved Problems Problem Noted Date Diagnosed Date [...] as of this encounter (statuses as of 07/19/2023) Immunizations Name Administration Dates Next Due COVID-19 [...] encounter Miscellaneous Notes * Telephone Encounter - Julienne Bernabe MD - 07/19/2023 4:33 PM EST Signed Prescriptions: Disp Refills Stelara 90 MG/ML Subcutaneous Solution Pre*1 mL 6 Sig: INJECT 1 SYRINGE UNDER THE SKIN EVERY 8 WEEKS. REFRIGERATE. DO NOT FREEZE. Authorizing Provider: JULIENNE BERNABE * Telephone Encounter - Kimmy Giles RN - 07/19/2023 3:21 PM EST Pended per pharmacy requests. * Telephone Encounter - Kimmy Giles RN - 07/19/2023 3:19 PM EST Pharmacy: [facility] Pending Prescriptions: Disp Refills Stelara 90 MG/ML Subcutaneous Solution Pr*1 mL 6 Sig: INJECT 1 SYRINGE UNDER THE SKIN EVERY 8 WEEKS. REFRIGERATE. DO NOT FREEZE. Last Visit: 01/12/2023 (in office), 05/20/2023 (telemedicine) Next Visit: 09/28/2023 If no future appointments scheduled, and last appointment is greater than a year ago, please schedule patient for a follow-up appointment Last date the medication was ordered: 07/17/23 Is this request for a controlled substance?No Urine Drug Screen: Results for orders placed [...] Description 07/27/2023 8:30 AM EST Telemedicine Psychiatry, [facility] [address] [place] [address] Lester Serna CRNP [address] [place] [address] 09/28/2023 2:40 PM EST Office Visit Gastroenterology, [facility] [address] [place] [address] Julienne Bernabe MD [address] [place] [address] Health Maintenance Due Date Last Done Comments [...] the patient have Health Care Power of Biological Sciences Professor? No Code Status History Code Status Date [...] the patient have Health Care Power of Biological Sciences Professor? No Care Teams Global Supply Chain Director Relationship Specialty Start Date End Date Giovany Correa DO [address] [place] [address] PCP - General Family Medicine 10/30/20 documented as of this encounter
--- OUTSIDE RECORDS SUMMARY | 2023-11-06 02:47 | External Medical Summary | Summary of Care ---
Author Name Unknown Organization [facility] Address [address] [facility] [place] [address] Phone [phone] Care Team Providers Care Associate Professor Of History Name Role Phone Giovany Correa Primary Care Provider Reason for Visit * Reason Onset Date Comments Other 07/21/2023 Encounter Details Date Type Department Care Team (Late st Contact Info) Description 07/21/2023 Telephone Gastroenterology, [facility] [address] [place] [address] Cheryl Rowley MD [address] [place] [address] Other Allergies No known active allergiesdocumented as of this encounter (statuses as of 07/21/2023) Medications Medication Sig Dispensed Refills Start Date End Date Status OSCAL 500/200 D-3 500-200 MG-UNIT PO TABSIndications:Technician Anatomic Pathology hn's disease of colon (HCC) one tab [...] 07/31/2010 Active MUCINEX D 120-1200 MG PO [id number]:Chr onic rhinitis,Other chronic sinusitis,Hypertrop hy of nasal [...] Stelara 90 MG/ML Subcutaneous Solution Prefilled Syringe ([employer]) INJECT 1 SYRINGE UNDER THE SKIN EVERY [...] as of this encounter Miscellaneous Notes * Addendum Note - Evy Peters RN - 07/21/2023 1:08 PM ESTAddended by: EVY PETERS on: 07/21/2023 01:08 PM Modules accepted: Orders * Telephone Encounter - Evy Peters RN - 07/21/2023 1:05 PM EST Copied from another TE " Jeannette Redd OSA routed conversation to [facility]/Class33 minutes ago (12:32 PM) Jeannette Redd OSA33 [...] looks like this recently sent to [facility] specialty. I left a message I wanted to confirm where she would like this script to be sent. documented in this encounter Plan of Treatment Upcoming Encounters Date Type Department Care Team (Late st Contact Info) Description 07/27/2023 8:30 AM EST Telemedicine Psychiatry, [facility] [address] [place] [address] Lester Serna CRNP [address] [place] [address] 09/28/2023 2:40 PM EST Office Visit Gastroenterology, [facility] [address] [place] [address] Cheryl Rowley MD [address] [place] [address] Health Maintenance Due Date Last Done Comments [...] the patient have Health Care Power of Circuit Manager? No Code Status History Code Status [...] the patient have Health Care Power of Circuit Manager? No Care Teams Associate Professor Of History Relationship Specialty Start Date End Date Giovany Correa DO [address] [place] [address] PCP - General Family Medicine 10/30/20 documented as of this encounter
--- OUTSIDE RECORDS SUMMARY | 2023-11-06 02:47 | External Medical Summary | Summary of Care ---
Author Name Unknown Organization [facility] Address [address] [facility] [place] [address] Phone [phone] Care Team Providers Care Manager Bilingual Name Role Phone Giovany Correa Primary Care Provider Reason for Visit * Reason Onset Date Comments Other 07/21/2023 Encounter Details Date Type Department Care Team (Late st Contact Info) Description 07/21/2023 Telephone Gastroenterology, [facility] [address] [place] [address] Cheryl Rowley MD [address] [place] [address] Other Allergies No known active allergiesdocumented as of this encounter (statuses as of 07/21/2023) Medications Medication Sig Dispensed Refills Start Date End Date Status OSCAL 500/200 D-3 500-200 MG-UNIT PO TABSIndications:Occupational Therapist'S Assistant hn's disease of colon (HCC) one [...] 07/31/2010 Active MUCINEX D 120-1200 MG PO [id number]:Chr onic rhinitis,Other chronic sinusitis,Hypertrop hy of nasal [...] Stelara 90 MG/ML Subcutaneous Solution Prefilled Syringe ([employer]) INJECT 1 SYRINGE UNDER THE SKIN EVERY [...] Miscellaneous Notes * Telephone Encounter - Kaitlyn Stanley RN - 07/21/2023 9:03 AM EST Received a call from [facility] specialty regarding a refill request on this patient. It looks like this recently sent to [facility] specialty. I left a message I wanted to confirm where she would like this script to be sent. documented in this encounter Plan of Treatment Upcoming Encounters Date Type Department Care Team (Late st Contact Info) Description 07/27/2023 8:30 AM EST Telemedicine Psychiatry, [facility] [address] [place] [address] Lester Serna CRNP [address] [place] [address] 09/28/2023 2:40 PM EST Office Visit Gastroenterology, [facility] [address] [place] [address] Cheryl Rowley MD [address] [place] [address] Health Maintenance Due Date Last Done Comments [...] the patient have Health Care Power of Motor Racer? No Code Status History Code Status Date [...] the patient have Health Care Power of Motor Racer? No Care Teams Manager Bilingual Relationship Specialty Start Date End Date Giovany Correa DO [address] [place] [address] PCP - General Family Medicine 10/30/20 documented as of this encounter
--- OUTSIDE RECORDS SUMMARY | 2023-11-06 02:47 | External Medical Summary | Summary of Care ---
Author Name Unknown Organization [facility] Address [address] [facility] [place] [address] Phone [phone] Care Team Providers Care Chiropractic Teacher Name Role Phone Giovany Correa Primary Care Provider Reason for Visit * Reason Onset Date Comments Other 07/21/2023 Encounter Details Date Type Department Care Team (Late st Contact Info) Description 07/21/2023 Telephone Gastroenterology, [facility] [address] [place] [address] Cheryl Rowley MD [address] [place] [address] Other Allergies No known active allergiesdocumented as of this encounter (statuses as of 07/21/2023) Medications Medication Sig Dispensed Refills Start Date End Date Status OSCAL 500/200 D-3 500-200 MG-UNIT PO TABSIndications:Umbrella Mender hn's disease of colon (HCC) one tab [...] 07/31/2010 Active MUCINEX D 120-1200 MG PO [id number]:Chr onic rhinitis,Other chronic sinusitis,Hypertrop hy of nasal [...] Stelara 90 MG/ML Subcutaneous Solution Prefilled Syringe ([employer]) INJECT 1 SYRINGE UNDER THE SKIN EVERY [...] 07/21/2023 2:08 PM EST Auto-routing to [facility] within [facility] may be turned on since patient has [facility] and this is the preferred pharmacy. P will be able to re-route on outreach. [facility] does offer shared documentation for ease [...] " Jeannette Redd OSA routed conversation to [facility] Nurse [place]/Class33 minutes ago (12:32 PM) Jeannette Redd OSA33 [...] Description 07/27/2023 8:30 AM EST Telemedicine Psychiatry, [facility] [address] [place] [address] Lester Serna CRNP [address] [place] [address] 09/28/2023 2:40 PM EST Office Visit Gastroenterology, [facility] [address] [place] [address] Cheryl Rowley MD [address] [place] [address] Health Maintenance Due Date Last Done Comments [...] the patient have Health Care Power of Engine Repair Supervisor? No Code Status History Code Status [...] the patient have Health Care Power of Engine Repair Supervisor? No Care Teams Chiropractic Teacher Relationship Specialty Start Date End Date Giovany Correa DO [address] [place] [address] PCP - General Family Medicine 10/30/20 documented as of this encounter
--- OUTSIDE RECORDS SUMMARY | 2023-11-06 02:47 | External Medical Summary | Summary of Care ---
Author Name Unknown Organization [facility] Address [address] [facility] [place] [address] Phone [phone] Care Team Providers Care Air Control/Anti Air Warfare Officer Name Role Phone Giovany Correa Primary Care Provider Reason for Visit * Reason Onset Date Comments Other 07/21/2023 Encounter Details Date Type Department Care Team (Late st Contact Info) Description 07/21/2023 Telephone Gastroenterology, [facility] [address] [place] [address] Cheryl Rowley MD [address] [place] [address] Other Allergies No known active allergiesdocumented as of this encounter (statuses as of 07/21/2023) Medications Medication Sig Dispensed Refills Start Date End Date Status OSCAL 500/200 D-3 500-200 MG-UNIT PO TABSIndications:Surface Boss hn's disease of colon (HCC) one tab [...] 07/31/2010 Active MUCINEX D 120-1200 MG PO [id number]:Chr onic rhinitis,Other chronic sinusitis,Hypertrop hy of nasal [...] Stelara 90 MG/ML Subcutaneous Solution Prefilled Syringe ([employer]) INJECT 1 SYRINGE UNDER THE SKIN EVERY [...] " Jeannette Redd OSA routed conversation to [facility]/Class33 minutes ago (12:32 PM) Jeannette Redd [...] It looks like this recently sent to [facility] specialty. I left a message I wanted to confirm where she would like this script to be sent. documented in this encounter Plan of Treatment Upcoming Encounters Date Type Department Care Team (Late st Contact Info) Description 07/27/2023 8:30 AM EST Telemedicine Psychiatry, [facility] [address] [place] [address] Lester Serna CRNP [address] [place] [address] 09/28/2023 2:40 PM EST Office Visit Gastroenterology, [facility] [address] [place] [address] Cheryl Rowley MD [address] [place] [address] Health Maintenance Due Date Last Done Comments [...] the patient have Health Care Power of Pharmacy Cashier? No Code Status History Code Status Date [...] the patient have Health Care Power of Pharmacy Cashier? No Care Teams Air Control/Anti Air Warfare Officer Relationship Specialty Start Date End Date Giovany Correa DO [address] [place] [address] PCP - General Family Medicine 10/30/20 documented as of this encounter
--- OUTSIDE RECORDS SUMMARY | 2023-11-06 02:48 | External Medical Summary | Summary of Care ---
Author Name Unknown Organization [facility] Address [address] [facility] [place] [address] Phone [phone] Care Team Providers Care Highway Construction Inspector Name Role Phone Howie Correa DO Primary Care Provider Reason for Visit * Reason Onset Date Comments Medication Refill 06/25/2023 Encounter Details Date Type Department Care Team (Late st Contact Info) Description 06/25/2023 Refill Family [facility] [address] [place] [address] Howie Correa DO [address] [place] [address] Anxiety Allergies No known active allergiesdocumented as of this encounter (statuses as of 06/28/2023) Medications Medication Sig Dispensed Refills Start Date [...] 07/31/2010 Active MUCINEX D 120-1200 MG PO [id number]:Ch ronic rhinitis,Other chronic sinusitis,Hypertro phy of nasal [...] a day 30 mL 5 10/20/2021 Active Stelara 90 MG/ML Subcutaneous Solution Prefilled Syringe ([employer]) INJECT 1 SYRINGE UNDER THE SKIN EVERY 8 WEEKS. REFRIGERATE. DO NOT FREEZE. 1 mL 6 07/17/2022 Active Potassium Chloride ER 10 MEQ Oral [...] before bedtime. 90 Tablet 0 06/28/2023 Active LORazepam 0.5 MG Oral Tablet (Ativan)Indication s:Anxiety Take 1 Tablet by mouth in the morning and 1 Tablet at noon and 1 Tablet before bedtime. 90 Tablet 0 05/10/2023 3 Discontinue d(Refill) Hospital, Clinic, or Other Facility Administered Medication Ordered Dose Route Frequency Start Date End Date Status albuterol sulfate (PROVENTIL) (2.5 MG/3ML) 0.083% inhalation solution 2.5 mgIndications:ESCOBEDO (dyspnea on exertion) 2.5 mg NEBULIZER PRN 11/15/2019 Act ran documented as of this encounter (statuses as of 06/28/2023) Active Problems Problem Noted Date Diagnosed Date Restless legs syndrome (RLS) 06/30/2022 Gastrostomy status 06/30/2022 Hypokalemia 06/30/2022 Crohn's disease of colon without complication Controlled substance agreement signed 08/28/2015 Vitamin D deficiency 11/21/2014 Overview: October 2014 = 21. Discuss with PCP. ICD-10 update of inactive term Tobacco use disorder Depression with anxiety documented as of this encounter (statuses as of 06/28/2023) Resolved Problems Problem Noted Date Diagnosed Date [...] as of this encounter (statuses as of 06/28/2023) Immunizations Name Administration Dates Next Due COVID-19 [...] or making decisions? (5 years old or older No 10/12/2020 documented as of this encounter Miscellaneous Notes * Telephone Encounter - Howie Correa DO - 06/28/2023 8:03 PM EST Signed Prescriptions: Disp Refills LORazepam 0.5 MG Oral Tablet (Ativan) 90 Tab*0 Sig: Take 1 Tablet by mouth in the morning and 1 Tablet at noon and 1 Tablet before bedtime. Authorizing Provider: HOWIE CORREA * Telephone Encounter - Ole Michele [facility] - 06/26/2023 12:06 PM EDT Pending Prescriptions: Disp Refills LORazepam 0.5 MG Oral Tablet (Ativan) 90 Tab*0 Sig: Take 1 Tablet by mouth in the morning and 1 Tablet at noon and 1 Tablet before bedtime. * Telephone Encounter - Tyshawn Desai [facility] - 06/26/2023 9:27 AM EDT I have reviewed the patients controlled substance dispensing history in the Prescription Drug Monitoring Program in compliance with the [facility] regulations before prescribing a controlled substance. PDMP checked on 06/26/2023. Pending Prescriptions: Disp Refills LORazepam 0.5 MG Oral Tablet (Ativan) 90 Tab*0 Sig: Take 1 Tablet by mouth in the morning and 1 Tablet at noon and 1 Tablet before bedtime. Last Visit: 01/12/2023 (in office), 06/30/2022 (telemedicine) Next Visit: Visit date not found Date medication was last filled: 05-10-23 Date medication is due for refill: 06-08-23 Pharm[facility]: [id number] Is this request for a controlled [...] in Results Review. Please approve if appropriate. Thanks, Tyshawn Desai, Raghu.Ph. Clinical Pharmacist [facility] [phone] ext [phone] 06/26/2023,9:28 AM documented in this encounter Plan of Treatment Upcoming Encounters Date Type Department Care Team (Late st Contact Info) Description 06/29/2023 3:30 PM EST Imaging Radiology [facility] 1st Floor, [place] [facility] [place] [address] 07/14/2023 8:30 AM EST Telemedicine Psychiatry, [facility] [address] [place] [address] Lester Serna CRNP [address] [place] [address] 09/28/2023 2:40 PM EST Office Visit Gastroenterology, [facility] [address] [place] [address] Cheryl Rowley MD [address] [place] [address] Health Maintenance Due Date Last Done Comments HPV/Co-Test 2003 Hepatitis B (2 of 3 [...] the patient have Health Care Power of Leasing Agent? No Code Status History Code Status Date [...] the patient have Health Care Power of Leasing Agent? No Care Teams Highway Construction Inspector Relationship Specialty Start Date End Date Howie Correa DO [address] [place] [address] PCP - General Family Medicine 10/30/20 documented as of this encounter
--- OUTSIDE RECORDS SUMMARY | 2023-11-06 02:48 | External Medical Summary | Summary of Care ---
Author Name Unknown Organization [facility] Address [address] [facility] [place] [address] Phone [phone] Care Team Providers Care Rug Cleaner Hand Name Role Phone Giovany Correa Primary Care Provider Reason for Visit * Reason Onset Date Comments Medication Refill 06/16/2023 Encounter Details Date Type Department Care Team (Late st Contact Info) Description 06/16/2023 Refill Marla Freedman [address] [place] [address] Lester Serna CRNP [address] [place] [address] Allergies No known active allergiesdocumented as of this encounter (statuses as of 06/16/2023) Medications Medication Sig Dispensed Refills Start Date [...] 07/31/2010 Active MUCINEX D 120-1200 MG PO [id number]:Ch ronic rhinitis,Other chronic sinusitis,Hypertro phy of nasal [...] NOT FREEZE. 1 mL 6 07/17/2022 Active Pantoprazole Sodium 40 MG Oral Tablet Delayed Release (Protonix) take 1 tablet by mouth once daily 90 Tablet 1 11/17/2022 Active Potassium Chloride ER 10 MEQ Oral [...] TO ELBOW 350 g 3 03/29/2023 Active LORazepam 0.5 MG Oral Tablet (Ativan)Indication s:Anxiety Take 1 Tablet by mouth in the morning and 1 Tablet at noon and 1 Tablet before bedtime. 90 Tablet 0 05/10/2023 Active Gabapentin 600 MG Oral Tablet (Neurontin) Take 1 Tablet by mouth at bedtime. 30 Tablet 1 05/10/2023 Active Amphetamine-Dextro amphetamine 5 MG Oral Tablet (Adderall) Take 1 Tablet by mouth 2 times a day in the morning and at noon. 60 Tablet 0 05/10/2023 Active Gabapentin 300 MG Oral Capsule [...] the morning.. 60 Capsule 2 06/16/2023 Active buPROPion HCl 75 MG Oral Tablet (Wellbutrin) Take 2 Tablets by mouth 2 times a day in the morning and at noon. 120 Tablet 1 12/08/2022 3 Discontinue d(Refill) FLUoxetine HCl 40 MG Oral Capsule (PROzac) Take 2 Capsules by mouth in the morning. In the morning.. 60 Capsule 2 01/13/2023 3 Discontinue d(Refill) Hospital, Clinic, or Other Facility Administered Medication Ordered Dose Route Frequency Start Date End Date Status albuterol sulfate (PROVENTIL) (2.5 MG/3ML) 0.083% inhalation solution 2.5 mgIndications:ESCOBEDO (dyspnea on exertion) 2.5 mg NEBULIZER PRN 11/15/2019 Act ran documented as of this encounter (statuses as of 06/16/2023) Active Problems Problem Noted Date Diagnosed Date Restless legs syndrome (RLS) 06/30/2022 Gastrostomy status 06/30/2022 Hypokalemia 06/30/2022 Crohn's disease of colon without complication Controlled substance agreement signed 08/28/2015 Vitamin D deficiency 11/21/2014 Overview: October 2014 = 21. Discuss with PCP. ICD-10 update of inactive term Tobacco use disorder Depression with anxiety documented as of this encounter (statuses as of 06/16/2023) Resolved Problems Problem Noted Date Diagnosed Date [...] as of this encounter (statuses as of 06/16/2023) Immunizations Name Administration Dates Next Due COVID-19 [...] oz pur e alcohol) Less than monthly Sex and Gender Information Value Date Recorded [...] encounter Miscellaneous Notes * Telephone Encounter - Stone Palacios MD - 06/16/2023 9:36 AM EDT Signed Prescriptions: Disp Refills buPROPion HCl 75 MG Oral Tablet (Wellbutri*120 Ta*1 Sig: Take 2Tablets by mouth 2 times a day in the morning and at noon.Authorizing Provider: STONE PALACIOS FLUoxetine HCl 40 MG Oral Capsule (PROzac) 60 Cap*2 Sig: Take 2 Capsules by mouth in [facility]. In the morning..Authorizing Provider: STONE PALACIOS * Telephone Encounter - Stone Palacios MD - 06/16/2023 9:36 AM EDT Signed Prescriptions: Disp Refills buPROPion HCl 75 MG Oral Tablet (Wellbutri*120 Ta*1 Sig: Take 2 Tablets by mouth 2 times a day in the morning and at noon. Authorizing Provider: STONE PALACIOS FLUoxetine HCl 40 MG Oral Capsule (PROzac) 60 Cap*2 Sig: Take 2 Capsules by mouth in the morning. In the morning.. Authorizing Provider: Raghu PALACIOS * Telephone Encounter - GUADALUPE Tilley - 06/16/2023 7:47 AM EDT Pharmacy requesting refill on Wellbutrin 75mg and Prozac 40mg. Medication was last filled on 12/08/22 with 1 refills. Patient last seen on 01/26/23 with return appointment scheduled for 07/14/23. Patient had 1 cancelled appointments and 1 NO SHOW appointments. documented in this encounter Plan of Treatment Upcoming Encounters Date Type Department Care Team (Late st Contact Info) Description 06/29/2023 3:30 PM EST Imaging Radiology [facility] [address] [place] [address] 07/14/2023 8:30 AM EST Telemedicine Psychiatry, [facility] [address] [place] [address] Lester Serna CRNP [address] [place] [address] 09/28/2023 2:40 PM EST Office Visit Gastroenterology, [facility] [address] [place] [address] Cheryl Rowley MD [address] [place] [address] Health Maintenance Due Date Last Done Comments [...] the patient have Health Care Power of Cytopathologist? No Code Status History Code Status Date [...] the patient have Health Care Power of Cytopathologist? No Care Teams Rug Cleaner Hand Relationship Specialty Start Date End Date Giovany Correa DO [address] [place] [address] PCP - General Family Medicine 10/30/20 documented as of this encounter
--- OUTSIDE RECORDS SUMMARY | 2023-11-06 02:48 | External Medical Summary | Summary of Care ---
Author Name Unknown Organization [facility] Address [address] [place] [address] Phone [phone] Care Team Providers Care Driver License Agent Name Role Phone Giovany Correa Primary Care Provider Reason for Visit * Reason Onset Date Comments Medication Refill 06/25/2023 Encounter Details Date Type Department Care Team (Late st Contact Info) Description 06/25/2023 Refill Psychiatry, [place] [address] [place] [address] Mayelin Gonsalez MD [address] [place], [place] [id number] Allergies No known active allergiesdocumented as of this encounter (statuses as of 06/25/2023) Medications Medication Sig Dispensed Refills Start Date [...] 07/31/2010 Active MUCINEX D 120-1200 MG PO [id number]:Ch ronic rhinitis,Other chronic sinusitis,Hypertro phy of nasal [...] Stelara 90 MG/ML Subcutaneous Solution Prefilled Syringe (UsGopeers) INJECT 1 SYRINGE UNDER THE SKIN EVERY [...] at noon. 60 Tablet 0 06/25/2023 Active Amphetamine-Dextro amphetamine 5 MG Oral Tablet (Adderall) Take 1 Tablet by mouth 2 times a day in the morning and at noon. 60 Tablet 0 05/10/2023 3 Discontinue d(Refill) Hospital, Clinic, or Other Facility Administered Medication Ordered Dose Route Frequency Start Date End Date Status albuterol sulfate (PROVENTIL) (2.5 MG/3ML) 0.083% inhalation solution 2.5 mgIndications:ESCOBEDO (dyspnea on exertion) 2.5 mg NEBULIZER PRN 11/15/2019 Act ran documented as of this encounter (statuses as of 06/25/2023) Active Problems Problem Noted Date Diagnosed Date Restless legs syndrome (RLS) 06/30/2022 Gastrostomy status 06/30/2022 Hypokalemia 06/30/2022 Crohn's disease of colon without complication Controlled substance agreement signed 08/28/2015 Vitamin D deficiency 11/21/2014 Overview: October 2014 = . Discuss with PCP. ICD-10 update of inactive term Tobacco use disorder Depression with anxiety documented as of this encounter (statuses as of 06/25/2023) Resolved Problems Problem Noted Date Diagnosed Date [...] as of this encounter (statuses as of 06/25/2023) Immunizations Name Administration Dates Next Due COVID-19 [...] encounter Miscellaneous Notes * Telephone Encounter - Wilbur Barron MD - 06/25/2023 1:22 PM EDTSigned Prescriptions: Disp Refills Amphetamine-Dextroamphetamine 5 MG Oral Ta*60 Tab*0 Sig: Take 1 Tablet by mouth 2 times a day in the morning and at noon.Authorizing Provider: WILBUR BARRON--------- * Telephone Encounter - Mariluz Kent RN - 06/25/2023 12:21 PM EDTPending Prescriptions: Disp Refills Amphetamine-Dextroamphetamine 5 MG Oral Ta*60 Tab*0 Sig: Take 1 Tablet by mouth 2 times a day in the morning and at noon. * Telephone Encounter - Mariluz Kent RN - 06/25/2023 12:19 PM EDT Refill request from patient ([facility]) for Adderall 5mg. Medication last filled on 05/10/23 with 0 refills. Patient last seen on 01/26/23 with return appointment scheduled for 07/14/23. Patient had 1 cancelled appointments and 1 NO SHOW appointments. documented in this encounter Plan of Treatment Upcoming Encounters Date Type Department Care Team (Late st Contact Info) Description 06/29/2023 3:30 PM EST Imaging Radiology [address] [place] [address] 07/14/2023 8:30 AM EST Telemedicine Psychiatry, [facility] [address] [place] [address] Lester Serna CRNP [address] [place] [address] 09/28/2023 2:40 PM EST Office Visit Gastroenterology, [facility] [address] [place] [address] Cheryl Rowley MD [address] [place] [address] Health Maintenance Due Date Last Done Comments [...] the patient have Health Care Power of Support Services Rep? No Code Status History Code Status Date [...] the patient have Health Care Power of Support Services Rep? No Care Teams Driver License Agent Relationship Specialty Start Date End Date Giovany Correa DO [address] [place] [address] PCP - General Family Medicine 10/30/20 documented as of this encounter
--- OUTSIDE RECORDS SUMMARY | 2023-11-06 02:48 | External Medical Summary | Summary of Care ---
Author Name Unknown Organization [facility] Address [address] [facility] [place] [address] Phone [phone] Care Team Providers Care Global Marketing Operations Manager Name Role Phone Giovany Correa Primary Care Provider Reason for Visit * Reason Onset Date Comments Appointment Canceled 07/12/2023 Encounter Details Date Type Department Care Team (Late st Contact Info) Description 07/12/2023 Telephone Marla Freedman [address] [place] [address] Lester Serna CRNP [address] [place] [address] Appointment Canceled Allergies No known active allergiesdocumented as of this encounter (statuses as of 07/12/2023) Medications Medication Sig Dispensed Refills Start Date End Date Status OSCAL 500/200 D-3 500-200 MG-UNIT PO TABSIndications:Social Research Assistant hn's disease of colon (HCC) one [...] 07/31/2010 Active MUCINEX D 120-1200 MG PO [id number]:Chr onic rhinitis,Other chronic sinusitis,Hypertrop hy of nasal [...] Stelara 90 MG/ML Subcutaneous Solution Prefilled Syringe (UstekKashab) INJECT 1 SYRINGE UNDER THE SKIN EVERY [...] before bedtime. 90 Tablet 0 06/28/2023 Active Hospital, Clinic, or Other Facility Administered Medication Ordered Dose Route Frequency Start Date End Date Status albuterol sulfate (PROVENTIL) (2.5 MG/3ML) 0.083% inhalation solution 2.5 mgIndications:ESCOBEDO (dyspnea on exertion) 2.5 mg NEBULIZER PRN 11/15/2019 Act ran documented as of this encounter (statuses as of 07/12/2023) Active Problems Problem Noted Date Diagnosed Date Restless legs syndrome (RLS) 06/30/2022 Gastrostomy status 06/30/2022 Hypokalemia 06/30/2022 Crohn's disease of colon without complication Controlled substance agreement signed 08/28/2015 Vitamin D deficiency 11/21/2014 Overview: October 2014 = 21. Discuss with PCP. ICD-10 update of inactive term Tobacco use disorder Depression with anxiety documented as of this encounter (statuses as of 07/12/2023) Resolved Problems Problem Noted Date Diagnosed Date [...] as of this encounter (statuses as of 07/12/2023) Immunizations Name Administration Dates Next Due COVID-19 [...] encounter Miscellaneous Notes * Telephone Encounter - Jaimie Acevedo OSA - 07/12/2023 1:26 PM EST Left voice message for cancellation on 07/14/23 with Maryann Serna documented in this encounter Plan of Treatment Upcoming Encounters Date Type Department Care Team (Late st Contact Info) Description 09/28/2023 2:40 PM EST Office Visit Gastroenterology, [facility] [address] [place] [address] Cheryl Rowley MD [address] [place] [address] Health Maintenance Due Date Last Done Comments [...] patient have Health Care Power of Water Leak Repairer? No Code Status History Code Status Date [...] patient have Health Care Power of Water Leak Repairer? No Care Teams Global Marketing Operations Manager Relationship Specialty Start Date End Date Giovany Correa DO [address] [place] [address] PCP - General Family Medicine 10/30/20 documented as of this encounter
--- OUTSIDE RECORDS SUMMARY | 2023-11-06 02:48 | External Medical Summary | Summary of Care ---
Author Name Unknown Organization [facility] Address [address] [place] [address] Phone [phone] Care Team Providers Care Digital Sales Director Name Role Phone Giovany Correa Primary Care Provider Reason for Referral * Precert (Within 10 days (routine)) - Pending Review Specialty Diagnoses / Procedures Referred By Coco newman Referred To Contact Radiology Diagnoses Crohn's disease of colon without complication (HCC) Procedures MR ENTEROGRAPHY Cheryl Rowley MD [address] [place] [address] Referral ID Status Reason Start Date Expiration Date V isits Requested Visits Authorized [id number] Pending Review 05/20/[phone] * (Within 10 days (routine)) - Authorized Specialty Diagnoses / Procedures Referred By Coco newman Referred To Contact Diagnoses Crohn's disease of colon without complication (HCC) Procedures CALPROTECTIN, STOOL Cheryl Rowley MD [address] [place] [address] Referral ID Status Reason Start Date Expiration Date V isits Requested Visits Authorized [id number] Authorized 05/20/[phone] Encounter Details Date Type Department Care Team Description 05/20/2023 Telemedicine Gastroenterology, [facility] [address] [place] [id number] Cheryl Rowley MD [address] [place] [id number] Crohn's disease of colon without complication (HCC)* Allergies No known active allergiesdocumented as of this encounter (statuses as of 05/21/2023) Medications Medication Sig Dispensed Refills Start Date End Date Status OSCAL 500/200 D-3 500-200 MG-UNIT PO TABSIndications:Binding Cutter hn's disease of colon (HCC) one tab [...] 07/31/2010 Active MUCINEX D 120-1200 MG PO OF85Holwbbzesml:Chr onic rhinitis,Other chronic sinusitis,Hypertrop hy of nasal [...] Stelara 90 MG/ML Subcutaneous Solution Prefilled Syringe (NotesFirst) INJECT 1 SYRINGE UNDER THE SKIN EVERY 8 WEEKS. REFRIGERATE. DO NOT FREEZE. 1 mL 6 07/17/2022 Active Pantoprazole Sodium 40 MG Oral Tablet Delayed Release (Protonix) take 1 tablet by mouth once daily 90 Tablet 1 11/17/2022 Active buPROPion HCl 75 MG Oral Tablet (Wellbutrin) Take 2 Tablets by mouth 2 times a day in the morning and at noon. 120 Tablet 1 12/08/2022 Active Potassium Chloride ER 10 MEQ Oral Tablet Extended Release Take 2 Tablets by mouth in the morning. 0 01/08/2023 Active oxyCODONE HCl 5 MG Oral Capsule (Oxy IR) Take 1 Capsule by mouth every 4 hours as needed. 0 Active Amoxicillin-Pot Clavulanate 875-125 MG Oral Tablet Take 1 Tablet by mouth in the morning and 1 Tablet before bedtime. 0 Active FLUoxetine HCl 40 MG Oral Capsule (PROzac) Take 2 Capsules by mouth in the morning. In the morning.. 60 Capsule 2 01/13/2023 Active Potassium Chloride ER 10 MEQ Oral [...] 03/29/2023 Active LORazepam 0.5 MG Oral Tablet (Ativan)Indications :Anxiety Take 1 Tablet by mouth in the morning and 1 Tablet at noon and 1 Tablet before bedtime. 90 Tablet 0 05/10/2023 Active Gabapentin 600 MG Oral Tablet (Neurontin) Take 1 Tablet by mouth at bedtime. 30 Tablet 1 05/10/2023 Active Amphetamine-Dextroa mphetamine 5 MG Oral Tablet [...] the morning. 7 Tablet 0 05/20/2023 Active Hospital, Clinic, or Other Facility Administered Medication Ordered Dose Route Frequency Start Date End Date Status albuterol sulfate (PROVENTIL) (2.5 MG/3ML) 0.083% inhalation solution 2.5 mgIndications:ESCOBEDO (dyspnea on exertion) 2.5 mg NEBULIZER PRN 11/15/2019 Act ran documented as of this encounter (statuses as of 05/21/2023) Active Problems Problem Noted Date Restless legs syndrome (RLS) 06/30/2022 Gastrostomy status 06/30/2022 Hypokalemia 06/30/2022 Crohn's disease of colon without complic ation 03/24/2021 Controlled substance agreement signed Vitamin D deficiency 11/21/2014 Overview: October 2014 = 21. Discuss with PCP. ICD-10 update of inactive term Tobacco use disorder Depression with anxiety documented as of this encounter (statuses as of 05/21/2023) Resolved Problems Problem Noted Date Resolved Date Current mild episode of mai r depressive disorder without prior episode 10/31/2019 11/07/2021 Crohn's disease of small intestine with complica tion 06/13/2019 11/07/2021 Amenorrhea, secondary 01/26/2017 11/07/2021 Overview: No menses in 400+ days. Will check FSH. Lizbeth Corea CNM 01/26/2017 10:50 AM Acute ethmoidal sinusitis 12/28/20162016 Chronic ethmoidal sinusitis 12/28/201610/21 Chronic maxillary sinusitis 12/28/201610/21 IUD 12/21/2012 01/28/2015 Overview: Mirena placed 10/29. Dysfunction of eustachian tube 07/31/2010 0 11/07/2021 Follow-up examination, following other surgery 0 01/01/2010 09/30/2017 Hypertrophy of nasal turbinates 10/21/2007 10/31/2019 Other chronic sinusitis 07/01/2007 10/31/19 20 NONALLERGIC RHINITIS 02/17/2007 10/31/2019 Deviated nasal septum 02/17/2007 11/07/2021 Acquired deformity of nose 01/20/200711/07 Acquired deformity of nose 01/20/200709/27 Overview: Resolved per Duplicate Protocol #2. S/P (STATUS POST) INTESTINAL ANASTOMOSIS 005 11/07/2021 ADVANCE DIRECTIVE INFORMATION 06/16/2005 Overview: No, Advance Directive brochure offered , patient declined. REG ENTERITIS, LG INTEST 06/09/2005 022 Tobacco use disorder 09/27/2008 Overview: Resolved per Duplicate Protocol #2. Chronic rhinitis 09/27/2008 Overview: Resolved per Duplicate Protocol #2. Major depressive disorder 2015 Overview: ICD-10 update of inactive term Crohn's disease 04/30/2021 Crohn's disease 07/24/2013 Anxiety states 11/01/2015 Overview: ICD-10 update of inactive term documented as of this encounter (statuses as of 05/21/2023) Immunizations Name Administration Dates Next Due COVID-19 [...] oz pur e alcohol) Less than monthly Food Insecurity Answer Date Recorded Within the past 12 months, y ou worried that your food would run out before you got money to buy more. Never true 02/08/2020 Within the past 12 months, t he food you bought just didn't last and you didn't have money to get more. Never true 02/08/2020 Sex Assigned at Date Recorded Female 12/09/2018 3:23 PM E DT Job Start Date Occupation Industry Not on [...] as of this encounter Progress Notes * Cheryl Rowley MD - 05/20/2023 4:27 PM EDT After connecting to the patient via telephone, the patient was identified by name and date of . Patient was then informed that this was a telephone call only visit. The patient agreed to participate. Visit Disposition: Routine follow-up Total call duration was 12 minutes. CC: Crohn's disease 47 year old female diagnosed with ileo colonic Crohn's disease in 1993 in [place]. She has had abscesses in 1994 and in 1999; she underwent bowel resection in 1999. She has had uveitis and erythema nodosum. Her last hospitalization was fall 2005. She has been on Remicade since 03/26. She was intially receiving 5 q 8; this was increased to 5 q 6 wks because she was having breakthrough sx. She was transitioned to Humira in 09/30. She had had a history of mild smoldering symptoms that continued despite courses of cipro and 6 MP.Imaging did not show active disease, and she was thought to have functional pain. She began to have severe pain in October of 2009, and a CT showed transverse colon stricture with proximal obstruction. Scope shows ulcer in rectum, rake ulcer in sigmoid, transverse colon stricture that could not be passed. No evidence of C diff, CMV. Bx from c scope show CAC. She did not respond toprednisone, and underwent Surgery in December 2009 - resection of 15 cm ileum, R hemicolectomy. Her post-op course was complicated by C diff; she also had severe pain and diarrhea post-op. On Flagyl x 3 mos post-op, now discontinued. Resumed Humira March 2010. Required brief course of prednisone in August 2010 for "rash" and abd pain. Admitted November 2010 for abrupt onset of upper abdominal pain, with CT which was suggestive of recurrent Crohns and obsturction. CT showed mild dilated and thickened loops near anstamosis. She was rxdwith steroids and abx. C scopy in March 2011 showed recurrent Crohn's at anasmatosis, without evidence of stricture / obstruction. Began Cimzia in May 2011, transitioned from Humira. Also completed 2 month course of prednisone. In December of 2011, she began to complain of worsening abdominal pain and diarrhea. SHe underwent MRE, which showed ileocolic stricture and disease recurrence in colon. She was then lost to follow up, and went off her medication as she lost her insurance. She was hospitalized in February 2012 for worsening abdominal pain and diarrhea. CT was done, which showed disease in rosa isela term ileum, as well as disease in colon remnant; there also was a concern for SBO. She wa treated with steroids and abx. SHe underwent c scopy in 03/2012, which showed ileitis, anastamotic stricture, and disease throughout colon. She was begun on 6mp 50 on 06/14/12. Increased to 75 on 08/10/12. She was hospitalized 11/2012 for fairly abrupt onset of abdominal pain. A CT showed evidence of SB obstruction, with fecalization of small intestine, and likely recurrence of Crohn's at anastamosis. Her ESR was 31. She was placed on Cipro, Flagyl, and steroids, and completed abt 2 weeks of abx, and an extended steroid taper. Cscopy 01/2013 showed some ulceration around anastamosis, but o/w no evidence of active Crohn's. 6 TG levels on 04/2013 were 588. In 08/2013, she had symptomatic remission while on Cimzia and 6 MP. An MRE showed a stricture in terminal ileum with mild active inflammation; a CRP was 1. Stopped Cimzia and 6 MP in 11/2013 due to loss of insurance, non-compliance. Her LFT's and macrocytosis resolved off 6 MP. She was seen in June 2014, complaining of abd pain. She was re-induced with Cimzia in July 2014. In December 2014, she had bloating, diarrhea. She was C diff positive. She was briefly on prednisone; she promptly resolved with Flagyl. Seen for f/u in 07/2015, complaining of pain and diarrhea, as well as enodosum after having been ofCImzia since December. Self medicated with prednisone. C diff neg, fecal calprotectin 1400. She was supposed to be re-induced with Cimzia, but received only two of induction doses, on 08/28/15 and 09/11/15. Her next dose of Cimzia was on 10/23/15. She was seen on 10/23/15 complaining of pain and diarrhea. She was given pred taper. Fecal calprotectin was done, and was 458. Completed prednisone iin late November. She has continued on Cimizia, without missing any doses. F/u Fcal calprotectin in February 2016 was improved - it was 172. It fell to 145 in May 2016. She is currently in symptomatic remission. She is stooling 1-2 x a day, and is without significant abd pain. She is taking Bentyl once daily. She has had increased heartburn recently. In May 2017, she had abrupt onset of abdominal pain. Prior to this, she had evidence of IBD flare -denies diarrhea. Hospitalized in [place], dx'd with SBO. Treated NGT, rx'd with steroids, also found to have C diff; remained in hosp for 4 days, and felt well at time of discharge. In 07/2017, she had cscopy which showed marked narrowing of ilecolonic anastamosis, as well as active perianal disease. In Aug 2017, she had MRE Fibro stenotic and active Crohn's disease involving the rosa isela terminal ileumat the ileocolic mid transverse colon level anastomosis, similar to the prior exam. Had C diff in February2018. 04/2018: Began Stelara in December 2017. Unintentional weight loss 20 lbs since last visit. Appetite is fair. Pain is relatively mild - will have significant pain approx 6-7 days out of every month. Still has diarrhea - has loose BM 2-3 times daily, more urgent than usual. 04/2019: Lost to follow up for the past year. She tells me that she has been off Stelara "for months" - lastapparent refill was approx 1 year ago. She was seen in ER for complaint of abd pain. W/u included elevations of ESR and CRP, nl CBC, CT with contrast without clear evidence of active IBD. Her primary complaint at present is fatigue, which has been severe and intractable for several months. Onset of fatigue coincided with a rash; she was given Doxy x 3 weeks to treat lyme disease for this. Lyme serologies in February were negative. Her fatigue is severe, and she reports losing her job due to this. Denies associated fevers/NS/chills. She does have abdominal pain, but does not feel that it is worse than her baseline. She has "a few"bowel movements daily, but again, this is not clearly worse than her baseline. Her appetite is poorbecause "she does not ever feel hungry," but denies worsening abd pain or bowel habits with PO intake. She has not lost weight. 07/2019: S/p Csocpy, which showed anastamotic stricture, unable to intubate TI. MRE show anast stricture with inflammation around anastamosis, blind pouch at end to side anastamossi without dilation,and no prox SB dilation. SBFT shows no delay of contrast. 12/2019: Hospitalized in Sep for pneumonia, SOB - unclear etiology. SHe was discharged on home O2, which she no longer uses. Her pulse ox at reset is 94%. She continues to have RLQ pain, 8-10 BM's a day, fair appetite. 03/2020: She began Humira in February, but had to interrupt therapy shortly after induction due to ? Cellulitis -- she describes fever and skin rash, and was given abx for either cellulitis or lyme. At present, continues to have LLQ pain and frequent loose BM's throughout the day. Of note, denies nocturnal BM. Weight is down approx 5 lbs. 04/2020: Hospitalized for abdominal franklin and constipation, CT showed obstruction - short sgment dilation of ileum, anastamotic stricture; although no SB dilation. Managed with steroids, NGT decompression with improvement. Currently without pain and stooling 4-5 x daily on 40 of prednisone. 06/2020: Off steroids for abt 2-3 weeks. Maintained on HUmira - takes every other week. Pain is "fine most days." BM's are irregular - at times she has urgency, associated with voluminousBM's; At other times, BM's are small volume and incomplete. At times, will hhave urge to have BM 8-10 times, at other times 4-6 x daily. No nausea, appetite fair but unchanged. 10/2020: She underwent resection of ileocolonic anastamosis, enterolysis with stapeled [id number] functional end-to-end ileocolic anastomosis on 10/13. Did well post- op./ Path c/w Crohns, active inflammationat margins. Appetite is fair. Describes early satiety. No abdominal pain with eating. + nausea, taking Zofran and Phenergan once daily. Has pain with movement. BM's 2-3x a day, loose. 12/2020 Wound has closed. She has pain at her incision - pain is constant, localized. She has no n/v. She denies abdominal pain. BM's three times a day, watery. Appetite is good. Small amount of weight gain. On Flagyl, no side effects. On Humira. 2-3 cigs/day. 07/13: Stelara She has pain at her incision when she coughs. BM's 3-5 x a day. Maintaining weight, good appetite. Stopped but doesn't like it. 08/2021: Robelara, 6 MP 50 mg day Cscopy in June = no evidence of disease. Calpro in July when pt reported diarrhea was WNL. At present, pt having 3-5 BMs a day. No abd pain. Appetite is fair. She reports sig stress - 5 deaths in 5-6 week period. 02/11: "Good days and bad." "Bad days 3-4 x week." Has cramping throughout abdomen. BM's vary from , with urgency and incontinence; at best she has 4-5 BM's per day. Using Immodium 2-4 mg qHS, partial relief of diarrhea Took course of cipro for 10 days for empiric course of SIBO, partial relief. Stelara and 6 MP. 01/12: Prior to hospitalization, was taking Lomotil 1 tab once a day and Immodium 4 mg a day. On this regimen, was having 3 BM's a day and no abd pain. Stool was loose, mildly urgent. She would have incontinence spordically - small volume incontinence , no awareness of need to defecate, sometimes when changing positions. Hosp for SBO which presented with abrupt onset abd pain . Had CT - no gb wall thick, + stones, + transition point mid small bowel. contined to have pain, uls showed GB wall thick and surgery attempted darby which was aborted due to adhesions, then had HIDA. Since discharge, taking oxycodone one every 6 hours for incisional pain. Pain is decreasing. Currently off lomotil, Having BM's 1-2 x a day. No n/v. Lost her job due to GI symptoms. 05/15: Recent hospitalization for abdominal pain. CT concerning for SBO, but had prolonged course of pain despite reoslutoins of SBO. Has constant RUQ pain. At present, pain is mild. Denies/vomiting. Appetite is good, eating well. BM's are occurring 3-4 x a day. Stools are liquid are Rare fast food, processed food. Past Medical History: Dysfunctional eustachian tube Hypertrophied nasal turbinates Chronic sinusitis Nonallergic rhinitis DNS Crohn's disease Depression Anxiety Past Surgical History: Multiple nasal surgeries including complete nasal reconstruction, septoplasty Partial colectomy with anastomosis Ureteral stent insertion Family History Family History: Grandfather- cancer (primary unknown) Father- Asthma, TIA Mother- Arthritis, Heart disorder Sister- DM, Crohn's disease Social History Smoking: less than 1 pack/day Alcohol: occasional Drug Use: none Marital status: single Current Outpatient Medications Medication Sig Dispense Refill [...] nostril twice a day 30 mL 5 Stelara 90 MG/ML Subcutaneous Solution Prefilled Syringe (NotesFirst) INJECT 1 SYRINGE UNDER THE SKIN EVERY 8 WEEKS. REFRIGERATE. DO NOT FREEZE. 1 mL 6 Pantoprazole Sodium 40 MG Oral Tablet Delayed Release (Protonix) take 1 tablet by mouth once daily 90 Tablet 1 buPROPion HCl 75 MG Oral Tablet (Wellbutrin) Take 2 Tablets by mouth 2 times a day in the morning and at noon. 120 Tablet 1 Potassium Chloride ER 10 MEQ Oral Tablet Extended Release Take 2 Tablets by mouth in the morning. oxyCODONE HCl 5 MG Oral Capsule (Oxy IR) Take 1 Capsule by mouth every 4 hours as needed. Amoxicillin-Pot Clavulanate 875-125 MG Oral Tablet Take 1 Tablet by mouth in the morning and 1 Tablet before bedtime. FLUoxetine HCl 40 MG Oral Capsule (PROzac) Take 2 Capsules by mouth in the morning. In the morning.. 60 Capsule 2 Potassium Chloride ER 10 MEQ Oral Capsule Extended Release take 1 capsule by mouth once daily 90 Capsule 2 Diphenoxylate-Atropine 2.5-0.025 MG Oral Tablet (Lomotil) TAKE 1 TABLET BY MOUTH DAILY NEEDED FOR DIARRHEA 30 Tablet 5 Diclofenac Sodium 1 % External Gel (Voltaren) apply 4 grams to affected area three times a day NEEDED FOR PAIN APPLY TO ELBOW 350 g 3 LORazepam 0.5 MG Oral Tablet (Ativan) Take 1 Tablet by mouth in the morning and 1 Tablet at noon and 1 Tablet before bedtime. 90 Tablet 0 Gabapentin 600 MG Oral Tablet (Neurontin) Take 1 Tablet by mouth at bedtime. 30 Tablet 1 Amphetamine-Dextroamphetamine 5 MG Oral Tablet (Adderall) Take 1 Tablet by mouth 2 times a day in the morning and at noon. 60 Tablet 0 Gabapentin 300 MG Oral Capsule (Neurontin) Take 1 Capsule by mouth 2 times a day in the morning andat noon. 60 Capsule 1 Current Facility-Administered Medications Medication Dose Route Frequency Provider Last Rate Last Admin albuterol sulfate (PROVENTIL) (2.5 MG/3ML) 0.083% inhalation solution 2.5 mg 2.5 mg Nebulizer PRN Micah Rodrgiuez MD GENERAL: no acute distress, obese, comfortable, pleasant SKIN: no rashes HEENT: normocephalic, sclerae clear, pharynx normal NECK: no obvious masses LUNGS: no increased work of breathing ABDOMEN: Mild diffuse abd tenderness, Bandage over darby scar. EXTREMITIES: no edema NEURO: CN intact RECTAL: Hemorrhoids, nl sphincter tone and squeeze pressure, mildly increased perineal descent A/P: Ileocolonic Crohn's s/p mult surgeries Cscopy 07/14 deep remission on Stelara monotherapy q8 , last calpro WNL Recent hosp SBO ?biliary colic Recent admission for obstruction - MRE, calpro to stage disease, consider colnoscopy. Cont to wean prednisone. If no evidence of active IBD, can pursue pain management referral for trigger point injection for pain. RTC 6 month documented in this encounter Plan of Treatment Upcoming Encounters Date Type Specialty Care Team Description 07/14/2023 Telemedicine Psychiatry Lester Serna CRNP [address] [place] [id number] Scheduled Orders Name Type Priority Associated Diagnoses Orde r Schedule CALPROTECTIN, STOOL Lab Routine Crohn's disease of colon without complication (HCC) Expected: 05/20/2023, Expires: 05/20/2024 MR ENTEROGRAPHY Medical Imaging Routine Crohn's disease of colon without complication (HCC) Expected: 05/20/2023, Expires: 06/19/2024 Health Maintenance Due Date Last Done Comments [...] as of this encounter Visit Diagnoses Diagnosis Crohn's disease of colon without complication (HCC)- Primary documented in this encounter Advance Directives [...] the patient have Health Care Power of Store Gift Wrap Associate? No Code Status History Code Status Date [...] the patient have Health Care Power of Store Gift Wrap Associate? No Care Teams Digital Sales Director Relationship Specialty Start Date End Date Giovany Correa DO [address] [place] [id number] PCP - General Family Medicine 10/30/20 documented as of this encounter
--- OUTSIDE RECORDS SUMMARY | 2023-11-06 02:48 | External Medical Summary | Summary of Care ---
Author Name Unknown Organization [facility] Address [address] [facility] [place] [address] Phone [phone] Care Team Providers Care Gang Investigator Name Role Phone Giovany Correa Primary Care Provider Reason for Visit * Reason Onset Date Comments Appointment 06/17/2023 MRI Encounter Details Date Type Department Care Team (Late st Contact Info) Description 06/17/2023 Telephone Radiology [address] [place] [address] Miroslava Dejesus, RT (M) Appointment (MRI) Allergies No known active allergiesdocumented as of this encounter (statuses as of 06/17/2023) Medications Medication Sig Dispensed Refills Start Date End Date Status OSCAL 500/200 D-3 500-200 MG-UNIT PO TABSIndications:Patient Service Associate hn's disease of colon (HCC) one tab [...] 07/31/2010 Active MUCINEX D 120-1200 MG PO [id number]:Chr onic rhinitis,Other chronic sinusitis,Hypertrop hy of nasal [...] Stelara 90 MG/ML Subcutaneous Solution Prefilled Syringe ([facility]) INJECT 1 SYRINGE UNDER THE SKIN EVERY [...] the morning.. 60 Capsule 2 06/16/2023 Active Hospital, Clinic, or Other Facility Administered Medication Ordered Dose Route Frequency Start Date End Date Status albuterol sulfate (PROVENTIL) (2.5 MG/3ML) 0.083% inhalation solution 2.5 mgIndications:ESCOBEDO (dyspnea on exertion) 2.5 mg NEBULIZER PRN 11/15/2019 Act ran documented as of this encounter (statuses as of 06/17/2023) Active Problems Problem Noted Date Diagnosed Date Restless legs syndrome (RLS) 06/30/2022 Gastrostomy status 06/30/2022 Hypokalemia 06/30/2022 Crohn's disease of colon without complication Controlled substance agreement signed 08/28/2015 Vitamin D deficiency 11/21/2014 Overview: October 2014 = 21. Discuss with PCP. ICD-10 update of inactive term Tobacco use disorder Depression with anxiety documented as of this encounter (statuses as of 06/17/2023) Resolved Problems Problem Noted Date Diagnosed Date [...] as of this encounter (statuses as of 06/17/2023) Immunizations Name Administration Dates Next Due COVID-19 [...] encounter Miscellaneous Notes * Telephone Encounter - RT Elli (M) - 06/17/2023 2:30 PM EDT If you answer "yes" to any of the following, please give us a call at before coming to your MRI appointment: Do you have a pacemaker/defibrillator? Do you have any electronic or mechanical implants? Have you had a recent colonoscopy in the last 30 days? Are you or ? Do you work around metal or ever gotten metal in your eyes? Any dermals or body piercing you cannot remove? Do you wear an insulin pump or diabetic monitor? Have you had any tattoos or permanent makeup in the last 4 weeks? LM to arrive at 2:00 PM on 06/29/23 documented in this encounter Plan of Treatment Upcoming Encounters Date Type Department Care Team (Late st Contact Info) Description 06/29/2023 3:30 PM EST Imaging Radiology [facility] [facility] [address] [place] [address] 07/14/2023 8:30 AM EST Telemedicine Psychiatry, [facility] [address] [place] [address] Lester Serna CRNP [address] [place] [address] 09/28/2023 2:40 PM EST Office Visit Gastroenterology, [facility] [address] [place] [address] Cheryl Rowley MD [address] [place] [address] Health Maintenance Due Date Last Done Comments [...] the patient have Health Care Power of Professor Of Literature? No Code Status History Code Status Date [...] the patient have Health Care Power of Professor Of Literature? No Care Teams Gang Investigator Relationship Specialty Start Date End Date Giovany Correa DO [address] [place] [address] PCP - General Family Medicine 10/30/20 documented as of this encounter
--- OUTSIDE RECORDS SUMMARY | 2023-11-06 02:48 | External Medical Summary | Summary of Care ---
Author Name Unknown Organization [facility] Address [address] [facility] [place] [address] Phone [phone] Care Team Providers Care Director Loss Prevention Name Role Phone Giovany Correa DO Primary Care Provider Reason for Visit * Reason Comments eRx-Medication Refill Encounter Details Date Type Department Care Team (Late st Contact Info) Description 06/25/2023 Refill Family Practice [facility] [address] [place] [address] Giovany Correa DO [address] [place] [address] Anxiety Allergies No known active allergiesdocumented as of this encounter (statuses as of 06/26/2023) Medications Medication Sig Dispensed Refills Start Date End Date Status OSCAL 500/200 D-3 500-200 MG-UNIT PO TABSIndications:Precision Thread Grinder Operator hn's disease of colon (HCC) one [...] 07/31/2010 Active MUCINEX D 120-1200 MG PO [id number]:Chr onic rhinitis,Other chronic sinusitis,Hypertrop hy of nasal [...] at noon. 60 Tablet 0 06/25/2023 Active Hospital, Clinic, or Other Facility Administered Medication Ordered Dose Route Frequency Start Date End Date Status albuterol sulfate (PROVENTIL) (2.5 MG/3ML) 0.083% inhalation solution 2.5 mgIndications:ESCOBEDO (dyspnea on exertion) 2.5 mg NEBULIZER PRN 11/15/2019 Act ran documented as of this encounter (statuses as of 06/26/2023) Active Problems Problem Noted Date Diagnosed Date Restless legs syndrome (RLS) 06/30/2022 Gastrostomy status 06/30/2022 Hypokalemia 06/30/2022 Crohn's disease of colon without complication Controlled substance agreement signed 08/28/2015 Vitamin D deficiency 11/21/2014 Overview: October 2014 = 21. Discuss with PCP. ICD-10 update of inactive term Tobacco use disorder Depression with anxiety documented as of this encounter (statuses as of 06/26/2023) Resolved Problems Problem Noted Date Diagnosed Date [...] as of this encounter (statuses as of 06/26/2023) Immunizations Name Administration Dates Next Due COVID-19 [...] encounter Miscellaneous Notes * Telephone Encounter - Tyshawn Angela [facility] - 06/26/2023 9:28 AM EDTRefused Prescriptions: Disp Refills LORazepam 0.5 MG Oral Tablet (Ativan) 90 Tab* Sig: take 1 tablet by mouth every morning 1 tablet AT NOON AND 1 TAB BEFORE BEDTIMERefused By: TYSHAWN ANGELA for Refusal: Duplicate Request documented in this encounter Plan of Treatment Upcoming Encounters Date Type Department Care Team (Late st Contact Info) Description 06/29/2023 3:30 PM EST Imaging Radiology [address] [place] [address] 07/14/2023 8:30 AM EST Telemedicine Psychiatry, [facility] [address] [place] [address] Lester Serna CRNP [address] [place] [address] 09/28/2023 2:40 PM EST Office Visit Gastroenterology, [facility] [address] [place] [address] Cheryl Rowley MD [address] [place] [address] Health Maintenance Due Date Last Done Comments [...] patient have Health Care Power of Director Of Events? No Code Status History Code Status Date [...] patient have Health Care Power of Director Of Events? No Care Teams Director Loss Prevention Relationship Specialty Start Date End Date Giovany Correa DO [address] [place] [address] PCP - General Family Medicine 10/30/20 documented as of this encounter
--- OUTSIDE RECORDS SUMMARY | 2023-11-06 02:48 | External Medical Summary | Summary of Care ---
Author Name Unknown Organization [facility] Address [address] [facility] [place] [address] Phone [phone] Care Team Providers Care Vp Of Technology Name Role Phone Giovany Correa Primary Care Provider Reason for Visit * Reason Comments eRx-Medication Refill Encounter Details Date Type Department Care Team (Late st Contact Info) Description 06/23/2023 Refill Gastroenterology, [facility] [address] [place] [address] Julienne Bernabe MD [address] [place] [address] Encounter for long-term (current) use of medications* Allergies No known active allergiesdocumented as of this encounter (statuses as of 06/25/2023) Medications Medication Sig Dispensed Refills Start Date End Date Status OSCAL 500/200 D-3 500-200 MG-UNIT PO TABSIndications:C rohn's disease of colon (HCC) one tab once a day 30 5 11/08/2008 Active Additional Information Patient taking differently: (No route reported), HS, Reported on 07/02/2022 FISH OIL 1000 MG PO CAPS 1 tab by mouth daily in the evening 0 11/27/2009 Active NASAL SALINE 0.65 % NA SOLNIndications:C hronic rhinitis,Other chronic sinusitis flush each nostril morning and night and every 2-4 hrs as needed for nasal dryness or congestion 1 Bottle 4 07/31/2010 Active MUCINEX D 120-1200 MG PO [id number]:C hronic rhinitis,Other chronic sinusitis,Hypertr ophy of nasal turbinates,Dysfun ction of eustachian tube 1 TABLET EVERY 12 HOURS NEEDED FOR NASAL CONGESTION 30 Tab 3 07/31/2010 Active Additional Information Patient not taking.Reported on 06/30/2022 Albuterol Sulfate HFA 108 (90 Base) MCG/ACT Inhalation Aerosol SolutionIndicatio ns:Acute maxillary sinusitis, recurrence not specified,Bronchi tis, complicated inhale 2 puffs by mouth and INTO THE LUNGS four times a day 18 g 3 02/03/2021 Active traMADol HCl 50 MG Oral Tablet (Ultram) Take 1 Tab by mouth every 6 hours as needed (pain not controlled with tylenol). 5 Tab 0 02/19/2021 Active Fluticasone Propionate 50 MCG/ACT Nasal Suspension (Flonase)Indicati ons:Acute sinusitis instill 2 sprays into each nostril once daily 48 g 3 05/19/2021 Active Multi-Day Oral Tablet Take 1 Tablet by mouth every evening. 0 Active Melatonin 5 MG Oral Capsule Take 1 Capsule by mouth at bedtime. 0 Active Azelastine HCl 137 MCG/SPRAY Nasal SolutionIndicatio ns:Chronic rhinitis instill 2 sprays into each nostril twice a day 30 mL 5 10/20/2021 Active Stelara 90 MG/ML Subcutaneous Solution Prefilled Syringe ([employer]) INJECT 1 SYRINGE UNDER THE SKIN EVERY [...] once daily 90 Capsule 2 02/19/2023 Active Diphenoxylate-Atr opine 2.5-0.025 MG Oral Tablet (Lomotil) TAKE 1 TABLET BY MOUTH DAILY NEEDED FOR DIARRHEA 30 Tablet 5 03/29/2023 Active Diclofenac Sodium 1 % External Gel (Voltaren)Indicat ions:Elbow pain, chronic, right apply 4 grams to affected area three times a day NEEDED FOR PAIN APPLY TO ELBOW 350 g 3 03/29/2023 Active LORazepam 0.5 MG Oral Tablet (Ativan)Indicatio ns:Anxiety Take 1 Tablet by mouth in the morning and 1 Tablet at noon and 1 Tablet before bedtime. 90 Tablet 0 05/10/2023 Active Gabapentin 600 MG Oral Tablet (Neurontin) Take 1 Tablet by mouth at bedtime. 30 Tablet 1 05/10/2023 Active Amphetamine-Dextr oamphetamine 5 MG Oral Tablet (Adderall) Take 1 [...] once daily 90 Tablet 1 06/25/2023 Active Pantoprazole Sodium 40 MG Oral Tablet Delayed Release (Protonix) take 1 tablet by mouth once daily 90 Tablet 1 11/17/2022 06/25/20 23 Discontinued Hospital, Clinic, or Other Facility Administered Medication [...] encounter Miscellaneous Notes * Telephone Encounter - Sheree Berg RPh - 06/25/2023 10:27 AM EDTSigned Prescriptions: Disp Refills Pantoprazole Sodium 40 MG Oral Tablet Ilgia*90 Tab*1 Sig: take 1 tablet by mouth once dailyAuthorizing Provider: JULIENNE BERNABE EOsanchez User: STEFANY BERG * Telephone Encounter - Sheree Berg RPh - 06/25/2023 10:26 AM EDT Per refill protocol patient needs magnesium lab on file within the past 2 years while using PPIs. Lab work ordered. Patient may obtain with next routine labs. Thanks, Sheree Berg, PharmD Clinical Pharmacist Centralized Clinical Pharmacy Services (CCPS) (formerly Telepharmacy) [phone] 06/25/2023 10:26 AM documented in this encounter Plan of Treatment Upcoming Encounters Date Type Department Care Team (Late st Contact Info) Description 06/29/2023 3:30 PM EST Imaging Radiology [facility] [place] [address] [place] [address] 07/14/2023 8:30 AM EST Telemedicine Psychiatry, [facility] [address] [place] [address] Lester Serna CRNP [address] [place] [address] 09/28/2023 2:40 PM EST Office Visit Gastroenterology, [facility] [address] [place] [address] Julienne Bernabe MD [address] [place] [address] Scheduled Orders Name Type Priority Associated Diagnoses Orde r Schedule MAGNESIUM Lab Routine Encounter for long-term (current) use of medications Expected: 06/25/2023 (Approximate), Expires: 06/25/2024 Health Maintenance Due Date Last Done Comments [...] the patient have Health Care Power of General Office Dispatcher? No Code Status History Code Status Date [...] the patient have Health Care Power of General Office Dispatcher? No Care Teams Vp Of Technology Relationship Specialty Start Date End Date Giovany Correa DO [address] [place] [address] PCP - General Family Medicine 10/30/20 documented as of this encounter
--- OUTSIDE RECORDS SUMMARY | 2023-11-06 02:48 | External Medical Summary | Summary of Care ---
Author Name Unknown Organization [facility] Address [address] [facility] [place] [address] Phone [phone] Care Team Providers Care Cone Examiner Name Role Phone Giovany Correa Primary Care Provider Encounter Details Date Type Department Care Team (Late st Contact Info) Description 07/13/2023 Population Health External Data Unspecified Department Allergies No known active allergiesdocumented as of this encounter (statuses as of 07/13/2023) Medications Medication Sig Dispensed Refills Start Date End Date Status OSCAL 500/200 D-3 500-200 MG-UNIT PO TABSIndications:Helicopter Dispatcher hn's disease of colon (HCC) one tab [...] 07/31/2010 Active MUCINEX D 120-1200 MG PO [id number]:Chr onic rhinitis,Other chronic sinusitis,Hypertrop hy of nasal [...] Stelara 90 MG/ML Subcutaneous Solution Prefilled Syringe ([employer]) INJECT 1 SYRINGE UNDER THE SKIN EVERY [...] as of this encounter (statuses as of 07/13/2023) Active Problems Problem Noted Date Diagnosed Date Restless legs syndrome (RLS) 06/30/2022 Gastrostomy status 06/30/2022 Hypokalemia 06/30/2022 Crohn's disease of colon without complication Controlled substance agreement signed 08/28/2015 Vitamin D deficiency 11/21/2014 Overview: October 2014 = . Discuss with PCP. ICD-10 update of inactive term Tobacco use disorder Depression with anxiety documented as of this encounter (statuses as of 07/13/2023) Resolved Problems Problem Noted Date Diagnosed Date [...] as of this encounter (statuses as of 07/13/2023) Immunizations Name Administration Dates Next Due COVID-19 [...] Description 07/27/2023 8:30 AM EST Telemedicine Psychiatry, [facility] [address] [place] [address] Lester Serna CRNP [address] [place] [address] 09/28/2023 2:40 PM EST Office Visit Gastroenterology, [facility] [address] [place] [address] Cheryl Rowley MD [address] [place] [address] Health Maintenance Due Date Last Done Comments [...] the patient have Health Care Power of Supervisory Training Specialist? No Code Status History Code Status [...] the patient have Health Care Power of Supervisory Training Specialist? No Care Teams Cone Examiner Relationship Specialty Start Date End Date Giovany Correa DO [address] [place] [address] PCP - General Family Medicine 10/30/20 documented as of this encounter
--- OUTSIDE RECORDS SUMMARY | 2023-11-06 02:49 | External Medical Summary | Summary of Care ---
Author Name Unknown Organization [facility] Address [address] [facility] [place] [address] Phone [phone] Care Team Providers Care Machine Tool Technician Instructor Name Role Phone Howie Correa Primary Care Provider Reason for Visit * Reason Onset Date Comments Medication Refill 05/07/2023 Encounter Details Date Type Department Care Team Description 05/07/2023 Refill [facility] [address] [place] [address] Anjum Graff MD [address] [place] [id number] Anxiety Allergies No known active allergiesdocumented as of this encounter (statuses as of 05/10/2023) Medications Medication Sig Dispensed Refills Start Date [...] 07/31/2010 Active MUCINEX D 120-1200 MG PO [id number]:Ch ronic rhinitis,Other chronic sinusitis,Hypertro phy of nasal [...] the morning.. 60 Capsule 2 01/13/2023 Active Gabapentin 600 MG Oral Tablet (Neurontin) Take 1 Tablet by mouth at bedtime. 30 Tablet 1 01/25/2023 Active Amphetamine-Dextro amphetamine 5 MG Oral Tablet (Adderall) Take 1 Tablet by mouth 2 times a day in the morning and at noon. 60 Tablet 0 02/19/2023 Active Potassium Chloride ER 10 MEQ Oral Capsule Extended Release take 1 capsule by mouth once daily 90 Capsule 2 02/19/2023 Active Gabapentin 300 MG Oral Capsule (Neurontin) Take 1 Capsule by mouth 2 times a day in the morning and at noon. 60 Capsule 1 02/24/2023 Active Diphenoxylate-Atro pine 2.5-0.025 MG Oral Tablet [...] before bedtime. 90 Tablet 0 05/10/2023 Active LORazepam 0.5 MG Oral Tablet (Ativan)Indication s:Anxiety Take 1 Tablet by mouth in the morning and 1 Tablet at noon and 1 Tablet before bedtime. 90 Tablet 0 02/19/2023 3 Discontinue d(Refill) Hospital, Clinic, or Other Facility Administered Medication Ordered Dose Route Frequency Start Date End Date Status albuterol sulfate (PROVENTIL) (2.5 MG/3ML) 0.083% inhalation solution 2.5 mgIndications:ESCOBEDO (dyspnea on exertion) 2.5 mg NEBULIZER PRN 11/15/2019 Act ran documented as of this encounter (statuses as of 05/10/2023) Active Problems Problem Noted Date Restless legs syndrome (RLS) 06/30/2022 Gastrostomy status 06/30/2022 Hypokalemia 06/30/2022 Crohn's disease of colon without complic ation 03/24/2021 Controlled substance agreement signed Vitamin D deficiency 11/21/2014 Overview: October 2014 = 21. Discuss with PCP. ICD-10 update of inactive term Tobacco use disorder Depression with anxiety documented as of this encounter (statuses as of 05/10/2023) Resolved Problems Problem Noted Date Resolved Date Current mild episode of mai r depressive disorder without prior episode 10/31/2019 11/07/2021 Crohn's disease of small intestine with complica tion 06/13/2019 11/07/2021 Amenorrhea, secondary 01/26/2017 11/07/2021 Overview: No menses in 400+ days. Will check FSH. Libzeth Corea CNM 01/26/2017 10:50 AM Acute ethmoidal [...] as of this encounter (statuses as of 05/10/2023) Immunizations Name Administration Dates Next Due COVID-19 [...] Telephone Encounter - Howie Correa DO - 05/10/2023 9:34 AM EDTSigned Prescriptions: Disp Refills LORazepam 0.5 MG Oral Tablet (Ativan) 90 Tab*0 Sig: Take 1 Tablet by mouth in the morning and 1 Tablet at noon and 1 Tablet before bedtime. Authorizing Provider: HOWIE CORREA * Telephone Encounter - Shelby Henao [facility] - 05/10/2023 5:04 AM EDTPending Prescriptions: Disp Refills LORazepam 0.5 MG Oral Tablet (Ativan) 90 Tab*0 Sig: Take 1 Tablet by mouth in the morning and 1 Tablet at noon and 1 Tablet before bedtime. * Telephone Encounter - Shelby Henao [facility] - 05/10/2023 5:04 AM EDT I have reviewed the patients controlled substance dispensing history in the Prescription Drug Monitoring Program in compliance with the [facility] regulations before prescribing a controlled substance. PDMP checked on 05/10/2023. Pending Prescriptions: Disp Refills LORazepam 0.5 MG Oral Tablet (Ativan) 90 Tab*0 Sig: Take 1 Tablet by mouth in the morning and 1 Tablet at noon and 1 Tablet before bedtime. Last Visit: 01/12/2023 (in office), 06/30/2022 (telemedicine) Next Visit: Visit date not found Date medication was last filled: 03/28/23 Date medication is due for refill: 04/26/23 [facility]acy: [id number] Is this request for a controlled [...] Results Review. Please approve if appropriate. Thank You, Shelby Henao [facility] Clinical Pharmacist Centralized Clinical Pharmacy Services (CCPS) (formerly Telepharmacy) [phone] 05/10/2023, 5:04 AM documented in this encounter Plan of Treatment Upcoming Encounters Date Type Specialty Care Team Description 05/20/2023 Office Visit Gastroenterology Cheryl Rowley MD [address] [place] [address] 07/14/2023 Telemedicine Psychiatry Lester Serna CRNP [address] [place] [address] Health Maintenance Due Date Last Done Comments [...] Additional history exists Colorectal Cancer Screening 07/03/2032 Hepatitis C Screening Completed 05/13/2020 , 08/31/2012, 04/14/2007 GARDASIL-HPV IMMUNIZATION SERIES Aged Out No longer [...] the patient have Health Care Power of Straw Hat Plunger Operator? No Code Status History Code Status [...] the patient have Health Care Power of Straw Hat Plunger Operator? No Care Teams Machine Tool Technician Instructor Relationship Specialty Start Date End Date Howie Correa DO [address] [place] [address] PCP - General Family Medicine 10/30/20 documented as of this encounter
--- OUTSIDE RECORDS SUMMARY | 2023-11-06 02:49 | External Medical Summary | Summary of Care ---
Author Name Unknown Organization [facility] Address [address] [facility] [place] [address] Phone [phone] Care Team Providers Care Motorcycle Tester Name Role Phone Giovany Correa Primary Care Provider Reason for Visit * Reason Comments eRx-Medication Refill Encounter Details Date Type Department Care Team Description 05/10/2023 Refill Family Practice [facility] [address] [place] [address] Anjum Graff MD [address] [place] [address] Anxiety Allergies No known active allergiesdocumented as of this encounter (statuses as of 05/11/2023) Medications Medication Sig Dispensed Refills Start Date End Date Status OSCAL 500/200 D-3 500-200 MG-UNIT PO TABSIndications:Senior Technical Business Analyst hn's disease of colon (HCC) one tab [...] 07/31/2010 Active MUCINEX D 120-1200 MG PO [id number]:Chr onic rhinitis,Other chronic sinusitis,Hypertrop hy of nasal [...] Stelara 90 MG/ML Subcutaneous Solution Prefilled Syringe ([facility]) INJECT 1 SYRINGE UNDER THE SKIN EVERY [...] before bedtime. 90 Tablet 0 05/10/2023 Active Hospital, Clinic, or Other Facility Administered Medication Ordered Dose Route Frequency Start Date End Date Status albuterol sulfate (PROVENTIL) (2.5 MG/3ML) 0.083% inhalation solution 2.5 mgIndications:ESCOBEDO (dyspnea on exertion) 2.5 mg NEBULIZER PRN 11/15/2019 Act ran documented as of this encounter (statuses as of 05/11/2023) Active Problems Problem Noted Date Restless legs syndrome (RLS) 06/30/2022 Gastrostomy status 06/30/2022 Hypokalemia 06/30/2022 Crohn's disease of colon without complic ation 03/24/2021 Controlled substance agreement signed Vitamin D deficiency 11/21/2014 Overview: October 2014 = . Discuss with PCP. ICD-10 update of inactive term Tobacco use disorder Depression with anxiety documented as of this encounter (statuses as of 05/11/2023) Resolved Problems Problem Noted Date Resolved Date [...] as of this encounter (statuses as of 05/11/2023) Immunizations Name Administration Dates Next Due COVID-19 [...] encounter Miscellaneous Notes * Telephone Encounter - Rossana Perrin [facility] - 05/11/2023 8:33 AM EDTRefused Prescriptions: Disp Refills LORazepam 0.5 MG Oral Tablet (Ativan) 90 Tab* Sig: take 1 tablet by mouth three times a dayRefused By: ROSSANA PERRIN for Refusal: Duplicate Request-------- documented in this encounter Plan of Treatment Upcoming Encounters Date Type Specialty Care Team Description 05/20/2023 Office Visit Gastroenterology Cheryl Rowley MD [address] [place] [address] 07/14/2023 Telemedicine Psychiatry Lester Serna CRNP [address] [place] [address] Health Maintenance Due Date Last Done Comments [...] the patient have Health Care Power of Brain Picker? No Code Status History Code Status Date [...] the patient have Health Care Power of Brain Picker? No Care Teams Motorcycle Tester Relationship Specialty Start Date End Date Giovany Correa DO [address] [place] [address] PCP - General Family Medicine 10/30/20 documented as of this encounter
--- OUTSIDE RECORDS SUMMARY | 2023-11-06 02:49 | External Medical Summary | Summary of Care ---
Author Name Unknown Organization [facility] Address [address] [place] [address] Phone [phone] Care Team Providers Care Cash Register Repairer Name Role Phone Giovany Correa Primary Care Provider Reason for Visit * Reason Onset Date Comments Medication Refill 05/07/2023 Encounter Details Date Type Department Care Team Description 05/07/2023 Refill [facility] [address] [place] [address] Lester Serna CRNP [address] [place] [address] Allergies No known active allergiesdocumented as of [...] 07/31/2010 Active MUCINEX D 120-1200 MG PO [id number]:Ch ronic rhinitis,Other chronic sinusitis,Hypertro phy of nasal [...] Stelara 90 MG/ML Subcutaneous Solution Prefilled Syringe ([employer]) INJECT 1 SYRINGE UNDER THE SKIN EVERY [...] at noon. 60 Capsule 1 05/10/2023 Active Gabapentin 600 MG Oral Tablet (Neurontin) Take 1 Tablet by mouth at bedtime. 30 Tablet 1 01/25/2023 3 Discontinue d(Refill) Amphetamine-Dextro amphetamine 5 MG Oral Tablet (Adderall) Take 1 Tablet by mouth 2 times a day in the morning and at noon. 60 Tablet 0 02/19/2023 3 Discontinue d(Refill) Gabapentin 300 MG Oral Capsule (Neurontin) Take 1 Capsule by mouth 2 times a day in the morning and at noon. 60 Capsule 1 02/24/2023 3 Discontinue d(Refill) Hospital, Clinic, or Other [...] encounter Miscellaneous Notes * Telephone Encounter - Neelam Newell MD - 05/10/2023 4:19 PM EDTSigned Prescriptions: Disp Refills Gabapentin 600 MG Oral Tablet (Neurontin) 30 Tab*1 Sig: Take 1 Tablet by mouth at bedtime.Authorizing Provider: NEELAM NEWELL Amphetamine-Dextroamphetamine 5 MG Oral Ta*60 Tab*0 Sig: Take 1 Tablet by mouth 2 times a day in the morning and at noon.AuthorizingProvider: NEELAM NEWELL Gabapentin 300 MG Oral Capsule (Neurontin) 60 Cap*1 Sig: T laurent 1 Capsule by mouth 2 times a day in the morning and at noon.Authorizing Provider: NEELAM NEWELL * Telephone Encounter - Neelam Newell MD - 05/10/2023 4:19 PM EDT Gabapentin and adderall prescriptions refilled. PDMP checked; several controlled substances are prescribed. * Telephone Encounter - Nevaeh Valente LPN - 05/10/2023 4:03 PM EDTPending Prescriptions: Disp Refills Gabapentin 600 MG Oral Tablet (Neurontin) 30 Tab*1 Sig: Take 1 Tablet by mouth at bedtime. Amphetamine-Dextroamphetamine 5 MG Oral Ta*60 Tab*0 Sig: Take 1 Tablet by mouth 2 times a day in the morning and at noon. Gabapentin 300 MG Oral Capsule (Neurontin) 60 Cap*1 Sig: Take 1 Capsule by mouth 2 times a day in the morning and at noon. * Telephone Encounter - Nevaeh Valente LPN - 05/10/2023 4:01 PM EDT Refill request from patient ([facility]) for [id number], Gabapentin 300mg and 600mg. Medication last filled on 02/24/23 with 1 refills. Patient last seen on 04/20/23 with return appointment scheduled for 07/14/23. Patient had 0 cancelled appointments and 0 NO SHOW appointments. documented in this encounter Plan of Treatment Upcoming Encounters Date Type Specialty Care Team Description 05/20/2023 Office Visit Gastroenterology Cheryl Rowley MD [address] [place] [id number] 07/14/2023 Telemedicine Psychiatry Lester Serna CRNP [address] [place] [address] Health Maintenance Due Date Last Done Comments [...] the patient have Health Care Power of [employer]? No Code Status History Code Status Date [...] the patient have Health Care Power of [employer]? No Care Teams Cash Register Repairer Relationship Specialty Start Date End Date Giovany Correa DO [address] [place] [id number] PCP - General Family Medicine 10/30/20 documented as of this encounter
[2023-11-06 06:23] LABS: Basophils # (auto) 0.04 K/uL (0.00-0.20); Basophils % (auto) 0.5 %; Eosinophils # (auto) 0.08 K/uL (0.00-0.50); Eosinophils % (auto) 1.1 %; Hematocrit (blood only) 36.7 % (37.0-47.0); Hemoglobin 11.7 g/dl (12.0-16.0); Immature Granulocytes # (auto) 0.03 K/uL (0.01-0.20); Immature Granulocytes % (auto) 0.4 %; Lymphocytes # (auto) 2.02 K/uL (1.20-3.40); Lymphocytes % (auto) 27.7 %; Mean Corpuscular Hgb Conc 31.9 g/dL (32.0-36.0); Mean Corpuscular Volume 90.8 fL (80.0-100.0); Mean Platelet Volume 8.8 fL (9.4-12.4); Monocytes # (auto) 0.74 K/uL (0.11-0.59); Monocytes % (auto) 10.1 %; Neutrophils # (auto) 4.39 K/uL (1.40-6.50); Neutrophils % (auto) 60.2 %; Platelet Count 324 K/uL (130-400); RDW Coefficient of Variation 14.2 % (11.5-14.5); RDW Standard Deviation 47.8 fL (36.4-46.3); Red Blood Count 4.04 M/uL (4.20-5.40)
[2023-11-06 06:30] LABS: BUN Creatinine Ratio 11.3 (10-20); Calcium 8.4 mg/dl (8.6-10.3); Creatinine Clr Calc Pharmacy 109.5 ml/min; Est GFR (African American) 121.9 ml/min; Est GFR (Non-African American) 105.1 ml/min; Magnesium 1.9 mg/dl (1.7-2.4); Potassium 3.4 mmol/L (3.5-5.1)
[2023-11-06] MEDS: POTASSIUM CHLORIDE / WTR 10 MEQ/100 ML PLCT IV SCH (07:53)
[2023-11-06] MEDS: KETOROLAC 30 MG/ML VIAL IV PRN (08:32)
--- NOTE | 2023-11-06 09:36 | Surgery Progress Note ---
Date of Service November 06, 2023 Assessment & Plan (1) SBO (small bowel obstruction): Plan: Some improvement clinically. Will repeat KUB tomorrow. She would not be a surgical candidate for this facility and if intervention was needed would recommend transfer to [facility]. Currently no urgent indication for surgical exploration and surgery should be a last resort for this Crohn's patient. We will continue to follow along (2) History of surgery: (3) Crohn's disease: Admission and Anticipated Discharge Date Admission Date: November 05, 2023 Subjective Patient seen. She is feeling slightly improved from admission. She is passing some flatus. She denies any nausea or vomiting. She is still using pain medication Physical Exam Constitutional: WD/WN, vitals as above no acute distress and not ill appearing Eyes: PERRL, conjunctivae normal, anicteric sclerae EOM intact bilaterally ENMT: external ear and nose normal, oropharynx normal Ears: no hearing impairment Neck: trachea midline, no thyromegaly Respiratory: normal respiratory effort; no respiratory distress and does not use accessory muscles Cardiovascular: Rate/Rhythm: regular rate and regular rhythm Gastrointestinal (Abdomen): Her abdomen is soft all things considered. It is nondistended with minimal tenderness. Skin: no rashes, warm and dry Psychiatric: Orientation: alert, oriented x 3 and cooperative Results & Data Vital Signs (Past 12 Hours) Vital Signs Temp Pulse Resp BP Pulse Ox O2 Del Method O2 Flow Rate 11/06/23 08:10 Nasal Cannula 1 11/06/23 07:41 36.7 C 72 16 129/68 94 Nasal Cannula 1 PG Care Time/CCT Total # of Minutes Spent Total Time Spent with Patient: Total time spent is greater than 50% in coordination of care (as documented) at patient's floor/unit and/or counseling patient: Coding Level of Care Code 08162 SUB INP/OBS CARE 2/35MIN Diagnoses SBO (small bowel obstruction) K56.609 History of surgery Z98.890 Crohn's disease K50.90
--- NOTE | 2023-11-06 10:49 | Gastroenterology Progress Note ---
Date of Service November 06, 2023 Assessment & Plan Admission and Anticipated Discharge Date Admission Date: November 05, 2023 Subjective Pt continues to complain of abd pain that is improved from admission. + flatus. Asking for clears, although her appetite remains fair. Looks comfortable. Abd is non distended, with mild tympany in upper abdomen and mild tenderness in RLQ on deep palpation. Labs reviewed CT imaging reviewed - She has a 5 cm segment of SB narrowing with mild fat stranding at anastamosis with proximal mild SB dilation and fecalization. A/P: Crohns, H/o mult surgeries most recently in 2020 now with SB obstruction Last disease staging in 07/14 with calpro and cscopy without active disease, missed apptments for MRE/cscopy/calpro in [address] suggests active disease - Begin Steroids - solumedrol 40 IV qD x 1-2 days, then transition to PO - MRE prior to discharge - CRP - Begin clears Results & Data Vital Signs (Past 12 Hours) Vital Signs Temp Pulse Resp BP Pulse Ox O2 Del Method O2 Flow Rate 11/06/23 08:10 Nasal Cannula 1 11/06/23 07:41 36.7 C 72 16 129/68 94 Nasal Cannula 1
--- NOTE | 2023-11-06 11:21 | Hospitalist Progress Note ---
Date of Service November 06, 2023 Assessment & Plan (1) SBO (small bowel obstruction): Plan: 48-year-old female with past medical history significant for hypertensive urgency, crohn's disease, restless leg syndrome, immunodeficiency due to drugs, tobacco use disorder, depression with anxiety, presents with abdominal pain. Patient states having abdominal pain on and off for last 2 weeks but since last 1 to 2 days the pain got really severe. Pain is located in the right side of the abdomen radiating to all over the abdomen. Associate with nausea no but no vomiting. Had a bowel movement on Wednesday. Yesterday was passing some gas. Denies any chest pain or shortness of breath. No cough. No fevers. Normal micturition. No headache. Vision is okay. No runny nose or sore throat. Hemodynamics are okay. #Small bowel obstruction #Crohn's disease #Prior abdominal surgeries -Hx of SBO previously, maintained on stelara for CD Surgery on consult -Conservative management GI on consult -Dr. Rowley is primary GI: -IV solumedrol 40mg qd, with plans to transition to PO -MR enterography prior to dispo -CRP in am -CLD #Hypertension Not on medications Normotensive during admission #Depression and anxiety Continue home medications #Restless leg syndrome On gabapentin #GERD On PPI DVT prophylaxis Lovenox Disposition Medical floor Full code Admission and Anticipated Discharge Date Admission Date: November 05, 2023 Subjective No acute events overnight Reports minimal improvement overall. Denies nausea, just persistent cramping in abdomen Reports some flatus and sensation of needing to pass stool, but no bm yet Physical Exam Constitutional: WD/WN, vitals as above Gastrointestinal (Abdomen): nondistended, tenderness with moderate palpation, however soft abdomen Results & Data Results & Data Vital Signs (Past 12 Hours) Vital Signs Temp Pulse Resp BP Pulse Ox O2 Del Method O2 Flow Rate 11/06/23 08:10 Nasal Cannula 1 11/06/23 07:41 36.7 C 72 16 129/68 94 Nasal Cannula 1 Laboratory Results Short CBC 11/06/23 Range/Units 05:28 WBC 7.30 (4.8-10.8) K/ul Hgb 11.7 L (12.0-16.0) g/dl Hct 36.7 L (37.0-47.0) % Plt Count 324 (130-400) K/uL BMP 03/16/24 05:28 Sodium 139 Potassium 3.4 L Chloride 105 Carbon Dioxide 28 BUN 7 Creatinine 0.62 Glucose 109 H Calcium 8.4 L Urine 11/05/23 Range/Units 12:38 Urine Color Yellow Urine Appearance Clear (Clear) Urine pH 5.0 (4.5-7.5) Ur Specific [place] > 1.045 H (1.000-1.030) Urine Protein Negative (Negative) Urine Glucose (UA) Negative (Negative) Medications Administered Home Medications Medication Instructions Recorded Confirmed Last Taken bupropion HCl 75 mg tablet 150 mg PO BID 11/05/23 11/05/23 Unknown dextroamphetamine-amphetamine 5 mg 5 mg PO BID 11/05/23 11/05/23 Unknown tablet diclofenac sodium 1 % topical gel 4 g topical TID PRN Pain 11/05/23 11/05/23 Unknown diphenoxylate-atropine 2.5 1 tab PO DAILY PRN Diarrhea 11/05/23 11/05/23 Unknown mg-0.025 mg tablet fluoxetine 40 mg capsule 80 mg PO DAILY 11/05/23 11/05/23 Unknown gabapentin 300 mg capsule 300 mg PO UD 11/05/23 11/05/23 Unknown gabapentin 600 mg tablet 600 mg PO HS 11/05/23 11/05/23 Unknown lorazepam 0.5 mg tablet 0.5 mg PO TID PRN Anxiety 11/05/23 11/05/23 Unknown oxycodone 5 mg tablet 5 mg PO Q6H PRN Outbreak 11/05/23 11/05/23 Unknown pantoprazole 40 mg tablet,delayed 40 mg PO DAILY 11/05/23 11/05/23 Unknown release potassium chloride 10 mEq 10 meq PO DAILY 11/05/23 11/05/23 Unknown capsule,extended release ustekinumab 90 mg/mL subcutaneous 1 mg subcut UD 11/05/23 11/05/23 Unknown syringe (Stelara) Active Medications Generic Name Dose Route Start Last Admin Trade Name Freq PRN Reason Stop Dose Admin Amphetamine/Dextroamphetamine 5 mg 11/05/23 12:00 11/06/23 07:56 Dextroamphetamine/Amphetamime Ir 5 Mg Tab PO 11/19/23 11:59 Not Given BID@0800,1200 [facility] Bupropion HCl 150 mg 11/05/23 11:00 11/06/23 07:56 Bupropion Hcl 75 Mg Tablet PO 12/05/23 10:59 150 mg BID [facility] Administration Enoxaparin Sodium 40 mg 11/05/23 11:00 11/06/23 10:05 Enoxaparin Inj 40 Mg/0.4 Ml Syr SQ 12/05/23 10:59 40 mg Q24H [facility] Administration Fluoxetine HCl 80 mg 11/05/23 11:00 11/06/23 07:57 Fluoxetine Hcl 20 Mg Cap PO 12/05/23 10:59 80 mg DAILY [facility] Administration Gabapentin 600 mg 11/05/23 21:00 11/05/23 20:17 Gabapentin 600 Mg Tab PO 12/05/23 20:59 600 mg HS [facility] Administration Gabapentin 300 mg 11/05/23 12:00 11/06/23 07:56 Gabapentin 300 Mg Cap PO 12/05/23 11:59 300 mg BID@0900,1200 [facility] Administration Hydromorphone HCl 0.5 mg 11/05/23 10:39 11/06/23 09:59 Hydromorphone Inj 0.5 Mg/0.5 Ml Syr IV 11/19/23 10:38 0.5 mg Q3H PRN Administration Mod-Sev Pain (Scale 4-10) Dextrose/Sodium Chloride 1,000 mls @ 125 mls/hr 11/05/23 11:00 11/06/23 10:04 D5w And 1/2nss IV 12/05/23 10:59 125 mls/hr .Q8H [facility] Administration Acetaminophen 1,000 mg in 100 mls @ 400 mls/hr 11/05/23 10:39 11/06/23 08:19 Ofirmev IV 11/08/23 10:38 Infused Q8H PRN Infusion Pain or Fever Ketorolac Tromethamine 30 mg 11/06/23 08:19 11/06/23 08:32 Ketorolac 30 Mg/Ml Vial IV 11/11/23 08:18 30 mg Q6H PRN Administration Pain Lorazepam 0.5 mg 11/05/23 10:39 11/06/23 04:04 Lorazepam 0.5 Mg Tab PO 12/05/23 10:38 0.5 mg TID PRN Administration Anxiety Miscellaneous 1 each 11/06/23 08:59 11/06/23 07:57 Remove Nicoderm Patch N/A 12/06/23 08:58 1 each DAILY@0859 [facility] Administration Nicotine 21 mg 11/05/23 16:45 11/06/23 07:57 Nicotine 21 Mg/24 Hr Tdsy TD 12/05/23 16:44 21 mg QAM [facility] Administration Pantoprazole Sodium 40 mg 11/05/23 11:00 11/06/23 07:58 Pantoprazole 40 Mg Tab PO 12/05/23 10:59 40 mg DAILY [facility] Administration Potassium Chloride 10 meq 11/05/23 11:00 11/06/23 07:56 Potassium Chloride 10 Meq Tabcr PO 12/05/23 10:59 10 meq DAILY [facility] Administration
[2023-11-06 11:58] LABS: C Reactive Protein 0.5 mg/dl (0-0.5)
[2023-11-06] MEDS: methylPREDNISolone 40 MG in SYRINGE 0 ML IV SCH (12:36)
[2023-11-06] MEDS: metroNIDAZOLE 500 MG/100 ML BAG IV SCH (12:38)
[2023-11-06] MEDS: LORazepam 1 MG TAB PO SCH (22:05)
[2023-11-07 07:19] LABS: Hematocrit (blood only) 35.4 % (37.0-47.0); Hemoglobin 11.5 g/dl (12.0-16.0); Mean Corpuscular Hemoglobin 29.3 pg (25.0-34.0); Mean Corpuscular Hgb Conc 32.5 g/dL (32.0-36.0); Mean Corpuscular Volume 90.3 fL (80.0-100.0); Mean Platelet Volume 8.8 fL (9.4-12.4); Platelet Count 307 K/uL (130-400); RDW Coefficient of Variation 14.3 % (11.5-14.5); RDW Standard Deviation 47.1 fL (36.4-46.3); Red Blood Count 3.92 M/uL (4.20-5.40); White Blood Count 9.53 K/ul (4.8-10.8)
[2023-11-07 07:35] LABS: BUN Creatinine Ratio 8.8 (10-20); Calcium 7.4 mg/dl (8.6-10.3); Creatinine Clr Calc Pharmacy 119.1 ml/min; Est GFR (African American) 125.3 ml/min; Est GFR (Non-African American) 108.1 ml/min; Magnesium 1.8 mg/dl (1.7-2.4); Phosphorus 2.9 mg/dl (2.5-4.9)
[2023-11-07] MEDS: HYDROmorphone INJ 0.5 MG/0.5 ML SYR IV PRN ×2 (09:31→12:25)
--- NOTE | 2023-11-07 09:43 | Surgery Progress Note ---
Date of Service November 07, 2023 Assessment & Plan (1) SBO (small bowel obstruction): Plan: clinically improving. awaiting KUB...if any improvement with advance to full liquids. (2) Crohn's disease: Admission and Anticipated Discharge Date Admission Date: November 05, 2023 Subjective feeling pretty good. trevin clears and would like more. no bm yet but continues to pass flatus Physical Exam Constitutional: WD/WN, vitals as above no acute distress and not ill appearing Eyes: PERRL, conjunctivae normal, anicteric sclerae EOM intact bilaterally ENMT: external ear and nose normal, oropharynx normal Ears: no hearing impairment Neck: trachea midline, no thyromegaly Respiratory: normal respiratory effort; no respiratory distress and does not use accessory muscles Cardiovascular: Rate/Rhythm: regular rate and regular rhythm Gastrointestinal (Abdomen): soft. nt. nondistended. similar exam to yesterday Skin: no rashes, warm and dry Psychiatric: Orientation: alert, oriented x 3 and cooperative Results & Data Vital Signs (Past 12 Hours) Vital Signs Temp Pulse Resp BP Pulse Ox O2 Del Method 11/07/23 07:30 36.7 C 71 16 127/78 96 Room Air PG Care Time/CCT Total # of Minutes Spent Total Time Spent with Patient: Total time spent is greater than 50% in coordination of care (as documented) at patient's floor/unit and/or counseling patient: Coding Level of Care Code 93284 SUB INP/OBS CARE 09/16MIN Diagnoses SBO (small bowel obstruction) K56.609 Crohn's disease K50.90
--- NOTE | 2023-11-07 10:11 | XRay Report ---
KUB HISTORY: Small bowel obstruction. Follow-up. COMPARISON: Abdomen and pelvis CT 11/05/2023. FINDINGS: There again noted dilated loops of small bowel seen within the abdomen. These are similar t o the prior study. There is gas and stool within the colon. Therefore, this favors a persistent small bowel obstruction No renal calculi. No ureteral calculi. No pneumoperitoneum or pneumatosis. IMPRESSION: No significant change in the small bowel obstruction. ACT 112: Negative or not required by law. Electronically signed by: Jorge Smith M.D. 11/07/2023 10:09 AM
--- NOTE | 2023-11-07 11:30 | Hospitalist Progress Note ---
Date of Service November 07, 2023 Assessment & Plan (1) SBO (small bowel obstruction): Plan: 48-year-old female with past medical history significant for hypertensive urgency, crohn's disease, restless leg syndrome, immunodeficiency due to drugs, tobacco use disorder, depression with anxiety, presents with abdominal pain. Patient states having abdominal pain on and off for last 2 weeks but since last 1 to 2 days the pain got really severe. Pain is located in the right side of the abdomen radiating to all over the abdomen. Associate with nausea no but no vomiting. Had a bowel movement on Wednesday. Yesterday was passing some gas. Denies any chest pain or shortness of breath. No cough. No fevers. Normal micturition. No headache. Vision is okay. No runny nose or sore throat. Hemodynamics are okay. #Small bowel obstruction #Crohn's disease #Prior abdominal surgeries -Hx of SBO previously, maintained on stelara for CD Surgery on consult -Conservative management, KUB looks similar, likely continue CLD GI on consult -Dr. Rowley is primary GI: -IV solumedrol 40mg qd, with plans to transition to PO per GI -MR enterography prior to dispo -CRP 0.5 -CLD Tylenol mercy 1g q 8 scheduled. ketorolac q4h mod pain, dilaudid 0.5 q2 severe pain #Hypertension Not on medications Normotensive during admission #Depression and anxiety Continue home medications #Restless leg syndrome On gabapentin #GERD On PPI DVT prophylaxis Lovenox Disposition Medical floor Full code Admission and Anticipated Discharge Date Admission Date: November 05, 2023 Subjective No acute events overnight Tolerating diet--reports she isn't getting better but also notes increased intake and flatus; endorses ongoing pain Physical Exam Constitutional: WD/WN, vitals as above Respiratory: normal respiratory effort, lungs clear to auscultation Cardiovascular: RRR, no murmur, no edema Gastrointestinal (Abdomen): soft, nondistended, appears uncomfortable with exam Results & Data Results & Data Vital Signs (Past 12 Hours) Vital Signs Temp Pulse Resp BP Pulse Ox O2 Del Method 11/07/23 07:30 36.7 C 71 16 127/78 96 Room Air Laboratory Results Short CBC 11/07/23 Range/Units 06:59 WBC 9.53 (4.8-10.8) K/ul Hgb 11.5 L (12.0-16.0) g/dl Hct 35.4 L (37.0-47.0) % Plt Count 307 (130-400) K/uL BMP 11/07/23 06:59 Sodium 140 Potassium 4.0 Chloride 105 Carbon Dioxide 30 BUN 5 L Creatinine 0.57 L Glucose 99 Calcium 7.4 L Medications Administered Home Medications Medication Instructions Recorded Confirmed Last Taken bupropion HCl 75 mg tablet 150 mg PO BID 11/05/23 11/05/23 Unknown dextroamphetamine-amphetamine 5 mg 5 mg PO BID 11/05/23 11/05/23 Unknown tablet diclofenac sodium 1 % topical gel 4 g topical TID PRN Pain 11/05/23 11/05/23 Unknown diphenoxylate-atropine 2.5 1 tab PO DAILY PRN Diarrhea 11/05/23 11/05/23 Unknown mg-0.025 mg tablet fluoxetine 40 mg capsule 80 mg PO DAILY 11/05/23 11/05/23 Unknown gabapentin 300 mg capsule 300 mg PO UD 11/05/23 11/05/23 Unknown gabapentin 600 mg tablet 600 mg PO HS 11/05/23 11/05/23 Unknown lorazepam 0.5 mg tablet 0.5 mg PO TID PRN Anxiety 11/05/23 11/05/23 Unknown oxycodone 5 mg tablet 5 mg PO Q6H PRN Outbreak 11/05/23 11/05/23 Unknown pantoprazole 40 mg tablet,delayed 40 mg PO DAILY 11/05/23 11/05/23 Unknown release potassium chloride 10 mEq 10 meq PO DAILY 11/05/23 11/05/23 Unknown capsule,extended release ustekinumab 90 mg/mL subcutaneous 1 mg subcut UD 11/05/23 11/05/23 Unknown syringe (Stelara) Active Medications Generic Name Dose Route Start Last Admin Trade Name Freq PRN Reason Stop Dose Admin Amphetamine/Dextroamphetamine 5 mg 11/05/23 12:00 11/07/23 08:31 Dextroamphetamine/Amphetamime Ir 5 Mg Tab PO 11/19/23 11:59 Not Given BID@0800,1200 [facility] Bupropion HCl 150 mg 11/05/23 11:00 11/07/23 08:31 Bupropion Hcl 75 Mg Tablet PO 12/05/23 10:59 150 mg BID [facility] Administration Enoxaparin Sodium 40 mg 11/05/23 11:00 11/06/23 10:05 Enoxaparin Inj 40 Mg/0.4 Ml Syr SQ 12/05/23 10:59 40 mg Q24H [facility] Administration Fluoxetine HCl 80 mg 11/05/23 11:00 11/07/23 08:31 Fluoxetine Hcl 20 Mg Cap PO 12/05/23 10:59 80 mg DAILY [facility] Administration Gabapentin 600 mg 11/05/23 21:00 11/06/23 20:38 Gabapentin 600 Mg Tab PO 12/05/23 20:59 600 mg HS [facility] Administration Gabapentin 300 mg 11/05/23 12:00 11/07/23 08:31 Gabapentin 300 Mg Cap PO 12/05/23 11:59 300 mg BID@0900,1200 [facility] Administration Hydromorphone HCl 0.5 mg 11/07/23 08:56 11/07/23 09:31 Hydromorphone Inj 0.5 Mg/0.5 Ml Syr IV 11/19/23 10:38 0.5 mg Q2H PRN Administration Mod-Sev Pain (Scale 4-10) Acetaminophen 1,000 mg in 100 mls @ 400 mls/hr 11/05/23 10:39 11/07/23 09:27 Ofirmev IV 11/08/23 10:38 Infused Q8H PRN Infusion Pain or Fever Methylprednisolone 40 mg/ 0.64 mls @ 1.5 mls/min 11/06/23 11:00 11/07/23 08:34 Syringe IV 12/06/23 10:59 1.5 mls/min DAILY [facility] Administration Metronidazole 500 mg in 100 mls @ 100 mls/hr 11/06/23 11:00 11/06/23 23:20 Flagyl IV 11/16/23 10:59 Infused Q12H [facility] Infusion Protocol Ketorolac Tromethamine 30 mg 11/06/23 08:19 11/07/23 04:04 Ketorolac 30 Mg/Ml Vial IV 11/11/23 08:18 30 mg Q6H PRN Administration Pain Lorazepam 0.5 mg 11/05/23 10:39 11/06/23 04:04 Lorazepam 0.5 Mg Tab PO 12/05/23 10:38 0.5 mg TID PRN Administration Anxiety Lorazepam 1 mg 11/06/23 21:00 11/06/23 22:05 Lorazepam 1 Mg Tab PO 12/06/23 20:59 1 mg QPM [facility] Administration Miscellaneous 1 each 11/06/23 08:59 11/07/23 08:32 Remove Nicoderm Patch N/A 12/06/23 08:58 1 each DAILY@0859 [facility] Administration Nicotine 21 mg 11/05/23 16:45 11/07/23 08:32 Nicotine 21 Mg/24 Hr Tdsy TD 12/05/23 16:44 21 mg QAM [facility] Administration Pantoprazole Sodium 40 mg 11/05/23 11:00 11/07/23 08:31 Pantoprazole 40 Mg Tab PO 12/05/23 10:59 40 mg DAILY [facility] Administration Potassium Chloride 10 meq 11/05/23 11:00 11/07/23 08:31 Potassium Chloride 10 Meq Tabcr PO 12/05/23 10:59 10 meq DAILY [facility] Administration
[2023-11-07] MEDS: KETOROLAC 30 MG/ML VIAL IV PRN (12:09)
--- NOTE | 2023-11-07 12:12 | Gastroenterology Progress Note ---
Date of Service November 07, 2023 Assessment & Plan Admission and Anticipated Discharge Date Admission Date: November 05, 2023 Subjective Pt without sig pain, trevin clears with good appetite. Passing "lots of gas, but no BM. Abd - mild distended and tympanic but non tender, and feels improved form yesterday. KUB reviewed - no sig change. A/P: Crohn's s/p resection, SBO at anastamosis. - Cont IV steroids, trial of fulls. MRE prior to d/c Results & Data Vital Signs (Past 12 Hours) Vital Signs Temp Pulse Resp BP Pulse Ox O2 Del Method 11/07/23 07:30 36.7 C 71 16 127/78 96 Room Air
[2023-11-07] MEDS: ACETAMINOPHEN 1,000 MG/100 ML VIAL IV SCH (17:12)
[2023-11-08 07:24] LABS: Hematocrit (blood only) 35.7 % (37.0-47.0); Hemoglobin 12.1 g/dl (12.0-16.0); Mean Corpuscular Hemoglobin 29.9 pg (25.0-34.0); Mean Corpuscular Hgb Conc 33.9 g/dL (32.0-36.0); Mean Corpuscular Volume 88.1 fL (80.0-100.0); Mean Platelet Volume 8.9 fL (9.4-12.4); Platelet Count 353 K/uL (130-400); RDW Coefficient of Variation 14.3 % (11.5-14.5); RDW Standard Deviation 45.7 fL (36.4-46.3); Red Blood Count 4.05 M/uL (4.20-5.40); White Blood Count 10.07 K/ul (4.8-10.8)
[2023-11-08 07:50] LABS: BUN Creatinine Ratio 13.3 (10-20); Calcium 8.9 mg/dl (8.6-10.3); Creatinine Clr Calc Pharmacy 113.2 ml/min; Est GFR (African American) 123.2 ml/min; Est GFR (Non-African American) 106.3 ml/min; Magnesium 1.8 mg/dl (1.7-2.4); Phosphorus 3.3 mg/dl (2.5-4.9); Potassium 3.1 mmol/L (3.5-5.1)
--- NOTE | 2023-11-08 07:51 | Surgery Progress Note ---
Date of Service November 08, 2023 Assessment & Plan (1) SBO (small bowel obstruction): Plan: Pt with history of crohns, here with concern for SBO she has been started on fulls yesterday without nauesa/vomiting she has since started to have multiple bouts of diarrhea and contiues to pass gas some abdominal discomfort remains, but not worsening as above. bowels now moving. ok to advance diet no surgical plans and if surgery needed in future would need to be done in [place]...will follow along from [facility]. please call if any questions or concerns Admission and Anticipated Discharge Date Admission Date: November 05, 2023 Subjective Patient feeling okay, but upset she had multiple episodes of loose BMs and incontinence yesterday. She continues to pass flatus. Tolerating liquids without nausea/vomiting. Having some belly discomfort, unsure if related to cramps from her diarrhea. Physical Exam Physical Exam: awake/alert, no distress Respiratory: normal respiratory effort Gastrointestinal (Abdomen): Inspection/Auscultation: abdomen not distended Percussion/Palpation: + abdomen tender (mild generalized discomfort, stable) and abdomen soft PG Care Time/CCT Total # of Minutes Spent Total Time Spent with Patient: Total time spent is greater than 50% in coordination of care (as documented) at patient's floor/unit and/or counseling patient: Coding Level of Care Code 13474 SUB INP/OBS CARE 09/16MIN Diagnoses SBO (small bowel obstruction) K56.609
--- NOTE | 2023-11-08 09:00 | Hospitalist Progress Note ---
Date of Service November 08, 2023 Assessment & Plan (1) SBO (small bowel obstruction): Plan: Ms. Cruz 48-year-old female with past medical history significant for hypertensive urgency, crohn's disease, restless leg syndrome, immunodeficiency due to drugs, tobacco use disorder, depression with anxiety, presents with abdominal pain. Patient states having abdominal pain on and off for last 2 weeks but since last 1 to 2 days the pain got really severe. Pain is located in the right side of the abdomen radiating to all over the abdomen. Associate with nausea no but no vomiting. Had a bowel movement on Wednesday. Yesterday was passing some gas. Denies any chest pain or shortness of breath. No cough. No fevers. Normal micturition. No headache. Vision is okay. No runny nose or sore throat. Hemodynamics are okay. #Small bowel obstruction #Crohn's disease #Prior abdominal surgeries -Hx of SBO previously, maintained on stelara for CD Surgery on consult -Conservative management, KUB looks similar, likely continue CLD GI on consult -Dr. Rowley is primary GI: -IV solumedrol 40mg qd, with plans to transition to PO per GI -MR enterography cannot be obtained 2/2 fresh tattoo on right forearm -CRP 0.5 -Soft, low fiber diet Tylenol mercy 1g q 8 scheduled. ketorolac q4h mod pain, dilaudid 0.5 q2 severe pain Trial bentyl for cramping #Hypertension Not on medications Normotensive during admission #Depression and anxiety Continue home medications #Restless leg syndrome On gabapentin #GERD On PPI DVT prophylaxis Lovenox Disposition Medical floor Full code Admission and Anticipated Discharge Date Admission Date: November 05, 2023 Subjective Multiple bowel movements overnight Reports different type of abdominal pain--predominately cramping and gas like Denies nausea, vomiting Would like to advance diet Physical Exam Constitutional: WD/WN, vitals as above Respiratory: normal respiratory effort, lungs clear to auscultation Cardiovascular: RRR, no murmur, no edema Gastrointestinal (Abdomen): normal bowel sounds, soft, nontender, no hepatosplenomegaly Results & Data Results & Data Vital Signs (Past 12 Hours) Vital Signs Temp Pulse Resp BP Pulse Ox O2 Del Method 11/08/23 08:07 36.9 C 73 18 130/76 92 Room Air Laboratory Results Short CBC 11/08/23 Range/Units 06:52 WBC 10.07 (4.8-10.8) K/ul Hgb 12.1 (12.0-16.0) g/dl Hct 35.7 L (37.0-47.0) % Plt Count 353 (130-400) K/uL BMP 11/08/23 06:52 Sodium 139 Potassium 3.1 L D Chloride 104 Carbon Dioxide 30 BUN 8 Creatinine 0.60 Glucose 105 H Calcium 8.9 Medications Administered Home Medications Medication Instructions Recorded Confirmed Last Taken bupropion HCl 75 mg tablet 150 mg PO BID 11/05/23 11/05/23 Unknown dextroamphetamine-amphetamine 5 mg 5 mg PO BID 11/05/23 11/05/23 Unknown tablet diclofenac sodium 1 % topical gel 4 g topical TID PRN Pain 11/05/23 11/05/23 Unknown diphenoxylate-atropine 2.5 1 tab PO DAILY PRN Diarrhea 11/05/23 11/05/23 Unknown mg-0.025 mg tablet fluoxetine 40 mg capsule 80 mg PO DAILY 11/05/23 11/05/23 Unknown gabapentin 300 mg capsule 300 mg PO UD 11/05/23 11/05/23 Unknown gabapentin 600 mg tablet 600 mg PO HS 11/05/23 11/05/23 Unknown lorazepam 0.5 mg tablet 0.5 mg PO TID PRN Anxiety 11/05/23 11/05/23 Unknown oxycodone 5 mg tablet 5 mg PO Q6H PRN Outbreak 11/05/23 11/05/23 Unknown pantoprazole 40 mg tablet,delayed 40 mg PO DAILY 11/05/23 11/05/23 Unknown release potassium chloride 10 mEq 10 meq PO DAILY 11/05/23 11/05/23 Unknown capsule,extended release ustekinumab 90 mg/mL subcutaneous 1 mg subcut UD 11/05/23 11/05/23 Unknown syringe (Stelara) Active Medications Generic Name Dose Route Start Last Admin Trade Name Freq PRN Reason Stop Dose Admin Amphetamine/Dextroamphetamine 5 mg 11/05/23 12:00 11/08/23 07:46 Dextroamphetamine/Amphetamime Ir 5 Mg Tab PO 11/19/23 11:59 Not Given BID@0800,1200 [facility] Bupropion HCl 150 mg 11/05/23 11:00 11/08/23 07:52 Bupropion Hcl 75 Mg Tablet PO 12/05/23 10:59 150 mg BID [facility] Administration Enoxaparin Sodium 40 mg 11/05/23 11:00 11/07/23 11:27 Enoxaparin Inj 40 Mg/0.4 Ml Syr SQ 12/05/23 10:59 40 mg Q24H [facility] Administration Fluoxetine HCl 80 mg 11/05/23 11:00 11/08/23 07:52 Fluoxetine Hcl 20 Mg Cap PO 12/05/23 10:59 80 mg DAILY [facility] Administration Gabapentin 600 mg 11/05/23 21:00 11/07/23 20:30 Gabapentin 600 Mg Tab PO 12/05/23 20:59 600 mg HS [facility] Administration Gabapentin 300 mg 11/05/23 12:00 11/08/23 07:52 Gabapentin 300 Mg Cap PO 12/05/23 11:59 300 mg BID@0900,1200 [facility] Administration Hydromorphone HCl 0.5 mg 11/07/23 11:27 11/08/23 07:49 Hydromorphone Inj 0.5 Mg/0.5 Ml Syr IV 11/19/23 10:38 0.5 mg Q2H PRN Administration Severe Pain (Scale 7, 8, 9,10) Methylprednisolone 40 mg/ 0.64 mls @ 1.5 mls/min 11/06/23 11:00 11/08/23 07:52 Syringe IV 12/06/23 10:59 1.5 mls/min DAILY [facility] Administration Metronidazole 500 mg in 100 mls @ 100 mls/hr 11/06/23 11:00 11/08/23 00:08 Flagyl IV 11/16/23 10:59 Infused Q12H [facility] Infusion Protocol Acetaminophen 1,000 mg in 100 mls @ 400 mls/hr 11/07/23 18:00 11/08/23 03:27 Ofirmev IV 11/10/23 11:29 Infused Q8H [facility] Infusion Ketorolac Tromethamine 30 mg 11/07/23 11:27 11/07/23 21:47 Ketorolac 30 Mg/Ml Vial IV 11/11/23 08:18 30 mg Q4H PRN Administration Moderate Pain (Scale 4, 5, 6) Lorazepam 0.5 mg 11/05/23 10:39 11/06/23 04:04 Lorazepam 0.5 Mg Tab PO 12/05/23 10:38 0.5 mg TID PRN Administration Anxiety Lorazepam 1 mg 11/06/23 21:00 11/07/23 20:36 Lorazepam 1 Mg Tab PO 12/06/23 20:59 1 mg QPM [facility] Administration Miscellaneous 1 each 11/06/23 08:59 11/08/23 07:53 Remove Nicoderm Patch N/A 12/06/23 08:58 1 each DAILY@0859 [facility] Administration Nicotine 21 mg 11/05/23 16:45 11/08/23 07:53 Nicotine 21 Mg/24 Hr Tdsy TD 12/05/23 16:44 21 mg QAM [facility] Administration Pantoprazole Sodium 40 mg 11/05/23 11:00 11/08/23 07:52 Pantoprazole 40 Mg Tab PO 12/05/23 10:59 40 mg DAILY [facility] Administration Potassium Chloride 10 meq 11/05/23 11:00 11/08/23 07:52 Potassium Chloride 10 Meq Tabcr PO 12/05/23 10:59 10 meq DAILY [facility] Administration
--- NOTE | 2023-11-08 09:40 | Gastroenterology Progress Note ---
Date of Service November 08, 2023 Assessment & Plan (1) SBO (small bowel obstruction): Plan: 48 year old female with history of RLS, Ileocolonic Crohn's s/p multiple surgeries last colonoscopy suggesting remission in 2021 on Stelara admitted with a SBO, etiology adhesive vs inflammatory. Her CT does not show any active inflammation, however, last admission in March 2023 she was treated for SBO w/o obvious inflammatory changes with steroids. Has multiple loose stools yesterday, but hasn't had any BM nor passing flatus this AM. - Continue steroids - KUB this AM - FL diet, advance as tolerated - If n/v, consider NGT to LIS - Avoid narcotics, encourage OOB, maintain K at >4 to promote GI motility - Antiemetics and analgesics for symptomatic management Admission and Anticipated Discharge Date Admission Date: November 05, 2023 Supervising Physician Co-Signing Physician Notes I saw and evaluated the patient, she reports that she has continued discomfort of her abdomen. Interestingly she is on a full liquid diet this morning. Would highly recommend KUB this morning and if persistent small bowel obstruction is seen would recommend continued n.p.o. status until small bowel obstruction resolves. Should the patient develop worsening symptoms an NG tube might be of benefit as well. Subjective Pt was having multiple loose stools yesterday. Had some full liquid foods. Is not passing flatus this AM. She has abd discomfort, no n/v. Review of Systems Review of Systems: All systems reviewed & are unremarkable except as noted in HPI & below Physical Exam Constitutional: WD/WN, vitals as above well groomed, cooperative and comfortable Eyes: PERRL, conjunctivae normal, anicteric sclerae ENMT: external ear and nose normal, oropharynx normal Respiratory: normal respiratory effort, lungs clear to auscultation Cardiovascular: RRR, no murmur, no edema Gastrointestinal (Abdomen): Mild distension, BS present, non tender Skin: no rashes, warm and dry no jaundice Psychiatric: A+Ox3, euthymic affect Lymphatic: no lymphedema Results & Data Vital Signs (Past 12 Hours) Vital Signs Temp Pulse Resp BP Pulse Ox O2 Del Method 11/08/23 08:07 36.9 C 73 18 130/76 92 Room Air
[2023-11-08] MEDS: POTASSIUM CHLORIDE CRTAB 20 MEQ TABCR PO STA (09:58)
[2023-11-08] MEDS: DICYCLOMINE HCL 10 MG CAP PO ONE (09:58)
--- NOTE | 2023-11-08 10:36 | XRay Report ---
XR KUB/Abdomen 1 view CLINICAL HISTORY: re-eval sbo TECHNIQUE: 1 view of the abdomen was obtained. Comparison: Comparison is made to abdomen radiograph 11/07/2023 FINDINGS: Lung bases are unremarkable. Degenerative changes are seen in the visualized skeleton. Previously not ed small bowel dilatation has somewhat improved, however there is suggestion of small polyps are iden tified. A moderate amount of stool is noted within the large bowel. IMPRESSION: Likely improvement in previously noted small bowel obstruction, however residual obstruction is noted . ACT 112: Negative or not required by law. Electronically signed by: Leo Gimenez M.D. 11/08/2023 10:35 AM
[2023-11-08] MEDS ORDERED: traMADol HCL 50 MG TABLET PO PRN ×2 (14:49→14:51)
[2023-11-08] MEDS ORDERED: HYDROmorphone INJ 0.5 MG/0.5 ML SYR IV PRN (14:50)
[2023-11-08] MEDS: traMADol HCL 50 MG TABLET PO STA (14:57)
[2023-11-08] MEDS: POTASSIUM CHLORIDE CRTAB 20 MEQ TABCR PO SCH (14:57)
[2023-11-08] MEDS: KETOROLAC 30 MG/ML VIAL IV SCH (15:24)
[2023-11-08] MEDS: DICYCLOMINE HCL 20 MG TAB PO PRN (15:24)
[2023-11-08] MEDS: HYDROmorphone INJ 0.5 MG/0.5 ML SYR IV PRN (15:43)
--- NOTE | 2023-11-09 08:51 | Gastroenterology Progress Note ---
Date of Service November 09, 2023 Assessment & Plan (1) SBO (small bowel obstruction): Plan: 48 year old female with history of RLS, Ileocolonic Crohn's s/p multiple surgeries, last colonoscopy suggesting remission in 2021 on Stelara admitted with a SBO, etiology adhesive vs inflammatory. Her CT does not show any active inflammation, however, last admission in March 2023 she was treated for SBO w/o obvious inflammatory changes with steroids. Is having BMs and passing flatus, tolerating clears - Continue steroids ; upon DC taper Prednisone PO: 40mg daily x 1 week, 35mg daily x 1 week, 30mg daily x 1 week, 25mg daily x 1 week, 20mg daily x 1 week, 15mg daily x 1 week, 10mg daily x 1 week, 5mg daily x 1 week. - CL diet, advance as tolerated - If n/v, consider NGT to LIS - Avoid narcotics, encourage OOB, maintain K at >4 to promote GI motility - Antiemetics and analgesics for symptomatic management Admission and Anticipated Discharge Date Admission Date: November 05, 2023 Supervising Physician Co-Signing Physician Notes I saw and evaluated the patient, she notes that she would like to go home today. She is passing stool and flatus this morning. Patient would like to continue with diet as opposed to being sent for the present time. Recommendations: Continue with prednisone taper, with recommendations to be given Liquid diet for 2 to 3 days and advance as tolerated Please call with any questions or concerns, patient to follow-up with your regular GI. Subjective Pt has BM overnight, and passing flatus. Abd pain is improved, no n/v, tolerating clear liquid diet. Review of Systems Review of Systems: All systems reviewed & are unremarkable except as noted in HPI & below Physical Exam Constitutional: WD/WN, vitals as above well groomed, cooperative and comfortable Eyes: PERRL, conjunctivae normal, anicteric sclerae ENMT: external ear and nose normal, oropharynx normal Respiratory: normal respiratory effort, lungs clear to auscultation Cardiovascular: RRR, no murmur, no edema Gastrointestinal (Abdomen): Mild distension, non tender, BS present Skin: no rashes, warm and dry no jaundice Psychiatric: A+Ox3, euthymic affect Lymphatic: no lymphedema Results & Data Vital Signs (Past 12 Hours) Vital Signs Temp Pulse Resp BP Pulse Ox O2 Del Method 11/09/23 07:32 36.6 C 73 18 132/82 94 Room Air 11/08/23 22:06 36.8 C 79 16 151/85 H 93 Room Air 11/08/23 21:10 Room Air
[2023-11-09 09:47] LABS: Hematocrit (blood only) 38.4 % (37.0-47.0); Hemoglobin 12.4 g/dl (12.0-16.0); Mean Corpuscular Hemoglobin 29.5 pg (25.0-34.0); Mean Corpuscular Hgb Conc 32.3 g/dL (32.0-36.0); Mean Corpuscular Volume 91.4 fL (80.0-100.0); Platelet Count 360 K/uL (130-400); RDW Coefficient of Variation 14.6 % (11.5-14.5); RDW Standard Deviation 48.9 fL (36.4-46.3); White Blood Count 8.06 K/ul (4.8-10.8)
[2023-11-09 10:05] LABS: BUN Creatinine Ratio 16.9 (10-20); Calcium 8.9 mg/dl (8.6-10.3); Creatinine Clr Calc Pharmacy 88.2 ml/min; Est GFR (African American) 104.3 ml/min; Potassium 3.5 mmol/L (3.5-5.1)
--- NOTE | 2023-11-09 12:46 | Discharge Summary ---
Discharge Summary Date of Service November 09, 2023 Notes For Next Care Provider Patient requesting to leave; encouraged slow advancement of diet Medication Changes From Visit prednisone for 8 weeks 40mg (8 tabs) daily x 1 week, 35mg (7 tabs) daily x 1 week, 30mg (6 tabs) daily x 1 week, 25mg (5 tabs) daily x 1 week, 20mg (4 tabs) daily x 1 week, 15mg (3 tabs) daily x 1 week, 10mg (2 tabs) daily x 1 week, 5mg (1 tab) daily x 1 week. Admission HPI Per Admitting Provider 48-year-old female with past medical history significant for hypertensive urgency, crohn's disease, restless leg syndrome, immunodeficiency due to drugs, tobacco use disorder, depression with anxiety, presents with abdominal pain. Patient states having abdominal pain on and off for last 2 weeks but since last 1 to 2 days the pain got really severe. Pain is located in the right side of the abdomen radiating to all over the abdomen. Associate with nausea no but no vomiting. Had a bowel movement on Wednesday. Yesterday was passing some gas. Denies any chest pain or shortness of breath. No cough. No fevers. Normal micturition. No headache. Vision is okay. No runny nose or sore throat. Hemodynamics are okay. Past medical history. As mentioned above. Past surgical history. Colonoscopy multiple. Colonoscopy biopsy. EGD. Laparoscopic partial colectomy with anastomosis. Diagnostic laparoscopy. Nasal sinus endoscopy. Rhinoplasty. Tonsillectomy. Bowel resection. Social history. Smokes half pack a day for 20 years. Alcohol drinks less than monthly. No drug use. Family history. Father has allergies. Asthma. Esophageal cancer. TIA. Mother has arthritis. Diverticulitis. Heart disorder. Sister has Crohn's disease. Sister has diabetes. Maternal grandfather had cancer. Admission Exam Per Admitting Provider General- Not in distress Head- atraumatic Eyes- PERRL. ENT- oropharynx clear Neck- supple, no JVD Lungs- clear to auscultation no wheezing or crackles. Heart- regular rhythm; no murmur, no gallop Abdomen- absent bowel sounds, soft, diffuse tender, guarding present,no distension seen. Extremities- no pretibial edema, no erythema seen. Neuro- alert, oriented PERRL, no facial palsy; no dysarthria; Principal Dx & Hospital Course #1 = Principal Diagnosis (1) SBO (small bowel obstruction): Ms. Cruz 48-year-old female with past medical history significant for hypertensive urgency, crohn's disease, restless leg syndrome, immunodeficiency due to drugs, tobacco use disorder, depression with anxiety, presents with abdominal pain. Patient admitted on 11/04 for SBO iso Crohns disease. Course was complicated by abdominal pain. She finally reported bowel movements over the evening of , but noted signiifcant gaseous discomfort which finally resolved the evening of 11/07. Patient on day of discharge, ambulating well and eating well. She reports resolution of her symptoms, passing gas and bowel movements this am. #Small bowel obstruction #Crohn's disease #Prior abdominal surgeries -Hx of SBO previously, maintained on stelara for CD Surgery on consult -Conservative management, KUB looks similar, likely continue CLD GI on consult -Dr. Rowley is primary GI: -IV solumedrol 40mg while admitted; 8 week taper prednisone upon discharge. -MR enterography cannot be obtained 2/2 fresh tattoo on right forearm -CRP 0.5 -Soft, low fiber diet Trial bentyl for cramping OP follow up with GI #Hypertension Not on medications Normotensive during admission #Depression and anxiety Continue home medications #Restless leg syndrome On gabapentin #GERD On PPI Discharge Exam Constitutional WD/WN, vitals as above Respiratory normal respiratory effort, lungs clear to auscultation Cardiovascular RRR, no murmur, no edema Gastrointestinal (Abdomen) normal bowel sounds, soft, nontender, no hepatosplenomegaly Updated Medication List Medication Instructions Recorded Confirmed Type bupropion HCl 75 mg tablet 150 mg PO BID 11/05/23 11/05/23 History dextroamphetamine-amphetamine 5 mg 5 mg PO BID 11/05/23 11/05/23 History tablet diclofenac sodium 1 % topical gel 4 g topical TID PRN Pain 11/05/23 11/05/23 History diphenoxylate-atropine 2.5 1 tab PO DAILY PRN Diarrhea 11/05/23 11/05/23 History mg-0.025 mg tablet fluoxetine 40 mg capsule 80 mg PO DAILY 11/05/23 11/05/23 History gabapentin 300 mg capsule 300 mg PO UD 11/05/23 11/05/23 History gabapentin 600 mg tablet 600 mg PO HS 11/05/23 11/05/23 History lorazepam 0.5 mg tablet 0.5 mg PO TID PRN Anxiety 11/05/23 11/05/23 History oxycodone 5 mg tablet 5 mg PO Q6H PRN Outbreak 11/05/23 11/05/23 History pantoprazole 40 mg tablet,delayed 40 mg PO DAILY 11/05/23 11/05/23 History release potassium chloride 10 mEq 10 meq PO DAILY 11/05/23 11/05/23 History capsule,extended release ustekinumab 90 mg/mL subcutaneous 1 mg subcut UD 11/05/23 11/05/23 History syringe (Stelara) dicyclomine 20 mg tablet 20 mg PO Q8H PRN abdominal pain 11/09/23 Rx #90 tabs prednisone 5 mg tablet 5 mg PO DIRECTED #252 tabs 11/09/23 Rx Hospital Stay Data Consultations 11/05/23 05:58 ED Decision to Admit Stat 11/05/23 06:08 Consult General Surgery Stat 11/05/23 10:39 Consult Gastroenterology Routine Diagnostic Imagining Performed 11/05/23 03:08 CT Abd and Pelvis [CT abd pelvis IV con only] Stat Pending Results Patient Have Any Pending Studies at Discharge: No Discharge Instructions Given to Patient (Per Discharging Provider) You were admitted for a small bowel obstruction in the setting of likely Crohn's flare. You were treated with IV steroids and diet slowly advanced. Given persistent flatus and bowel movements, you requested to advance diet at home. It is strongly recommended you continue clear or full liquid diet for another 24-48 hours and resume soft/bland low fiber diet when tolerated. Please follow up with Dr. Rolwey as soon as able, this will be coordinated with GI. You will complete a taper of prednisone for 8 weeks 40mg (8 tabs) daily x 1 week, 35mg (7 tabs) daily x 1 week, 30mg (6 tabs) daily x 1 week, 25mg (5 tabs) daily x 1 week, 20mg (4 tabs) daily x 1 week, 15mg (3 tabs) daily x 1 week, 10mg (2 tabs) daily x 1 week, 5mg (1 tab) daily x 1 week. Total Time Total Time Spent Total Time Spent (In Minutes): 35
== END 2023-11-09 13:18 | disposition home or self-care (01) | DRG 386 ==
LOC: ED 02:43 → EDINP 06:54 → SUATTDRO 06:54 → 3N 10:28

== ENCOUNTER 2024-11-21 20:49 | Inpatient (IN) ==
--- NOTE | 2024-11-21 21:48 | Emergency Department Note ---
History of Present Illness General Chief complaint: Abdominal Pain Stated complaint: ABDOMINAL PAIN Time Seen by Provider: 11/21/24 21:30 History of Present Illness Maximum Pain Intensity: 7 This is a 49-year-old female presenting to the emergency department for evaluation of abdominal pain throughout the course of today. Patient has a history of Crohn's disease and small bowel obstructions. She is currently on Stelara. Patient has had waxing and waning pain throughout the day, primarily on the right side. She rates her current pain a 7/10, however at worst it was a 10/10. She has not had any fevers or chills. No nausea or vomiting. No difficulty using the bathroom. No recent travel history or antibiotic use. Home Medications Medication Instructions Recorded Confirmed Type albuterol sulfate 90 mcg/actuation 2 puff inhalation QID PRN sob 11/22/24 11/22/24 History aerosol inhaler (Ventolin HFA) dextroamphetamine-amphetamine 5 mg 5 mg PO UD 11/22/24 11/22/24 History tablet dextromethorphan IR 45 1 tab PO BID 11/22/24 11/22/24 History mg-bupropion ER 105 mg biphasic tablet (Auvelity) diphenoxylate-atropine 2.5 1 tab PO DAILY PRN Diarrhea 11/22/24 11/22/24 History mg-0.025 mg tablet fluoxetine 20 mg/5 mL (4 mg/mL) 20 mg PO DAILY 11/22/24 11/22/24 History oral solution gabapentin 300 mg capsule 300 mg PO UD 11/22/24 11/22/24 History gabapentin 600 mg tablet 600 mg PO HS 11/22/24 11/22/24 History lorazepam 0.5 mg tablet 0.5 mg PO TID 11/22/24 11/22/24 History pantoprazole 40 mg tablet,delayed 40 mg PO DAILY 11/22/24 11/22/24 History release potassium chloride 10 mEq 10 meq PO DAILY 11/22/24 11/22/24 History capsule,extended release ustekinumab 90 mg/mL subcutaneous 90 mg subcut UD 11/22/24 11/22/24 History syringe (Stelara) Allergies Allergy/AdvReac Type Severity Reaction Status Date / Time No Known Allergies Allergy Verified 04/07/24 03:02 Past Med/Surg History Problem List (Updated 11/22/24 @ 20:56 by Andrae Garcia PA-C) Partial small bowel obstruction (Acute) Colitis (Acute) Abdominal pain (Acute) SBO (small bowel obstruction) (Acute) SBO (small bowel obstruction) (Acute) History of surgery (01/04/23) Attempted Laparoscopy, Exploratory Laparotomy, Lysis of Adhesions(Not Applicable) - Alexx Garrett MD, FACS Encounter for pre-operative examination Acute cholecystitis SBO (small bowel obstruction) (Acute) Prolonged QT interval Cholelithiasis Abdominal pain (Acute) Near syncope (Acute) Hypokalemia Hypophosphatemia SBO (small bowel obstruction) (Acute) Abnormal CT scan, chest Acute hypoxemic respiratory failure Abdominal pain (Acute) Hypokalemia (Acute) Hypoxia (Acute) Pneumonia (Acute) Tobacco abuse Crohn's disease (Acute) Depression with anxiety Medical History History of Clostridioides difficile colitis History of uveitis History of erythema nodosum History of deviated nasal septum Chronic maxillary sinusitis Surgical History History of colonoscopy Last 07/2019 History of rhinoplasty Multiple nasal surgeries x3 History of colectomy Family History Father Heart disease TIA (transient ischemic attack) Mother Heart disease FH: diverticulitis Sister Crohn's disease Diabetes Social History Smoking Status: Current every day smoker Tobacco Type: Cigarettes Cigarettes Per Day: 1/2 ppd; Second Hand Exposure: No; Do You Dip or Chew Tobacco: No; Hx Alcohol Use: Yes Alcohol type: beer Alcohol type Comment: Once a month Hx Substance Use: No Preferred Language: Kiswahili Communication Ability: Effective Mixer Driver Required: No Beliefs That Will Affect Care: None marital status: Single Current Living Situation: Other Current Living Situation Comment: Friend Other Information That Helps Us Care for You: No Feels Safe at Home: Yes Assistive Devices: None Review of Systems A total of 10 systems reviewed and were otherwise negative Physical Exam Vital Signs Vital Signs - 24 hr 11/21/24 20:54 11/21/24 21:08 11/21/24 22:00 Temperature 36.9 C Temperature Source Oral Pulse Rate 95 H 87 Pulse Rate [Apical] Pulse Rhythm [Apical] Respiratory Rate 18 16 Respiratory Effort / Characteristics Non-Labored Spontaneous Respiratory Depth Normal Respiratory Pattern Regular Blood Pressure 134/86 Blood Pressure [Left Arm] Blood Pressure Mean 102 Blood Pressure Mean [Left Arm] Pulse Oximetry 98 96 Oxygen Delivery Method Room Air Room Air Sepsis Recent Fever Within 48 Hours No Sepsis New/Unexplained Change in Mental Status No Sepsis Action Taken by Nursing No Action Required 11/21/24 22:45 11/22/24 00:00 11/22/24 00:59 Temperature Temperature Source Pulse Rate 65 Pulse Rate [Apical] 67 72 Pulse Rhythm [Apical] Irregular Respiratory Rate 16 22 Respiratory Effort / Characteristics Non-Labored Spontaneous Respiratory Depth Normal Respiratory Pattern Regular Blood Pressure Blood Pressure [Left Arm] 138/87 134/80 Blood Pressure Mean Blood Pressure Mean [Left Arm] 104 98 Pulse Oximetry 98 93 Oxygen Delivery Method Room Air Room Air Sepsis Recent Fever Within 48 Hours Sepsis New/Unexplained Change in Mental Status Sepsis Action Taken by Nursing 11/22/24 02:00 11/22/24 03:03 11/22/24 04:00 Temperature Temperature Source Pulse Rate Pulse Rate [Apical] 69 64 93 H Pulse Rhythm [Apical] Regular Respiratory Rate 20 16 16 Respiratory Effort / Characteristics Non-Labored Spontaneous Respiratory Depth Normal Respiratory Pattern Regular Blood Pressure Blood Pressure [Left Arm] 119/86 131/74 130/70 Blood Pressure Mean Blood Pressure Mean [Left Arm] 97 93 90 Pulse Oximetry 92 93 94 Oxygen Delivery Method Room Air Room Air Room Air Sepsis Recent Fever Within 48 Hours Sepsis New/Unexplained Change in Mental Status Sepsis Action Taken by Nursing 11/22/24 05:05 Temperature Temperature Source Pulse Rate 75 Pulse Rate [Apical] Pulse Rhythm [Apical] Respiratory Rate Respiratory Effort / Characteristics Respiratory Depth Respiratory Pattern Blood Pressure Blood Pressure [Left Arm] Blood Pressure Mean Blood Pressure Mean [Left Arm] Pulse Oximetry Oxygen Delivery Method Sepsis Recent Fever Within 48 Hours Sepsis New/Unexplained Change in Mental Status Sepsis Action Taken by Nursing VITALS: Vitals are noted on the nurse's note and reviewed by myself. Vital signs stable. GENERAL: Well-developed, well-nourished, white female, who is in no acute distress and resting comfortably. Patient is cooperative with the examination. HEAD: Normocephalic atraumatic. HEART: Regular rate and rhythm without murmurs gallops or rubs. LUNGS: Clear to auscultation bilaterally without wheezes, rales or rhonchi. No retractions or accessory muscle use. ABDOMEN: Positive normal bowel sounds x 4. Soft, nontender, without masses or organomegaly. No guarding or rebound tenderness. MUSCULOSKELETAL: No muscle atrophy, erythema, or edema noted. Full range of motion in all extremities. NEURO: Patient was alert and oriented to person place and time. CN II through XII grossly intact. Course Administered Medications Amphetamine/Dextroamphetamine (Dextroamphetamine/Amphetamime Ir 5 Mg Tab) 5 mg PO DAILY@0800,1200 [facility] Stop: 12/06/24 08:44 Last Admin: 11/22/24 12:19 Dose: 5 mg Documented By: Admin: 11/22/24 09:42 Dose: 5 mg Documented By: TLM Enoxaparin Sodium (Enoxaparin Inj 40 Mg/0.4 Ml Syr) 40 mg SQ Q24H [facility] Stop: 12/22/24 08:59 Last Admin: 11/22/24 09:29 Dose: 40 mg Documented By: TLM Fluoxetine HCl (Fluoxetine Hcl 20 Mg/5 Ml Udp) 20 mg PO DAILY [facility] Stop: 12/22/24 08:59 Last Admin: 11/22/24 09:46 Dose: 20 mg Documented By: TLM Gabapentin (Gabapentin 600 Mg Tab) 600 mg PO HS [facility] Stop: 12/22/24 20:59 Last Admin: 11/22/24 20:31 Dose: 600 mg Documented By: ACO Gabapentin (Gabapentin 300 Mg Cap) 300 mg PO DAILY@0800,1200 [facility] Stop: 12/22/24 08:44 Last Admin: 11/22/24 12:19 Dose: 300 mg Documented By: Admin: 11/22/24 09:28 Dose: 300 mg Documented By: TLM Hydromorphone HCl (Hydromorphone Inj 0.5 Mg/0.5 Ml Syr) 0.5 mg IV Q3H PRN PRN Reason: Pain Stop: 12/06/24 08:14 Last Admin: 11/22/24 19:44 Dose: 0.5 mg Documented By: Admin: 11/22/24 16:02 Dose: 0.5 mg Documented By: communications marketing intern: 11/22/24 12:30 Dose: 0.5 mg Documented By: TLM Methylprednisolone 40 mg/ (Syringe) 0.64 mls @ 1.5 mls/min IV DAILY [facility] Stop: 12/22/24 10:14 Last Admin: 11/22/24 12:01 Dose: 1.5 mls/min Documented By: TLM Potassium Chloride/Sodium Chloride (Normal Saline W/20 Meq Kcl) 20 meq in 1,000 mls @ 125 mls/hr IV .Q8H [facility] Stop: 11/23/24 11:29 Last Admin: 11/22/24 12:19 Dose: 125 mls/hr Documented By: TLM Lorazepam (Lorazepam 0.5 Mg Tab) 0.5 mg PO TID [facility] Stop: 12/22/24 08:59 Last Admin: 11/22/24 20:30 Dose: 0.5 mg Documented By: Admin: 11/22/24 13:30 Dose: 0.5 mg Documented By: Admin: 11/22/24 09:28 Dose: 0.5 mg Documented By: EMILY Miscellaneous (Auvelity: Order Awaiting Action) 1 each N/A QS [facility] Stop: 12/22/24 15:59 Last Admin: 11/22/24 17:36 Dose: Not Given Documented By: MED Ondansetron HCl (Ondansetron Inj 2 Mg/Ml 2 Ml Vial) 4 mg IV Q6H PRN PRN Reason: Nausea Stop: 12/22/24 08:14 Last Admin: 11/22/24 09:28 Dose: 4 mg Documented By: TLM Pantoprazole Sodium (Pantoprazole 40 Mg Tab) 40 mg PO DAILY [facility] Stop: 12/22/24 08:59 Last Admin: 11/22/24 09:28 Dose: 40 mg Documented By: TLM Potassium Chloride (Potassium Chloride 10 Meq Tabcr) 10 meq PO TID [facility] Stop: 12/22/24 13:59 Last Admin: 11/22/24 20:31 Dose: 10 meq Documented By: Admin: 11/22/24 13:30 Dose: 10 meq Documented By: TLM Discontinued Medications Hydromorphone HCl (Hydromorphone Inj 0.5 Mg/0.5 Ml Syr) 0.5 mg IV Q6H PRN PRN Reason: Severe Pain (Scale 7, 8, 9,10) Stop: 12/06/24 08:14 Last Admin: 11/22/24 09:28 Dose: 0.5 mg Documented By: EMILY Sodium Chloride (Nss) 1,000 mls @ 999 mls/hr IV .Q1H1M ONE Stop: 11/21/24 22:40 Last Infusion: 11/21/24 23:54 Dose: Infused Documented By: Admin: 11/21/24 21:49 Dose: 999 mls/hr Documented By: BERTHA Lactated Ringer's (Lr) 1,000 mls @ 125 mls/hr IV .Q8H [facility] Stop: 11/24/24 08:29 Last Admin: 11/22/24 15:20 Dose: Not Given Documented By: Admin: 11/22/24 09:44 Dose: 125 mls/hr Documented By: EMILY Ioversol (Optiray 320 100ml) 100 ml IV ONCE ONE Stop: 11/21/24 23:23 Last Admin: 11/21/24 23:22 Dose: 93 ml Documented By: MARIYA Morphine Sulfate (Morphine Sulfate 4 Mg/Ml 1 Ml Carp\Vial) 4 mg IV Q30M PRN PRN Reason: Pain Stop: 12/05/24 21:39 Last Admin: 11/22/24 05:04 Dose: 4 mg Documented By: Admin: 11/22/24 00:47 Dose: 4 mg Documented By: Admin: 11/21/24 21:49 Dose: 4 mg Documented By: BERTHA Ondansetron HCl (Ondansetron Inj 2 Mg/Ml 2 Ml Vial) 4 mg IV NOW STA Stop: 11/21/24 21:41 Last Admin: 11/21/24 21:49 Dose: 4 mg Documented By: BERTHA Potassium Chloride (Potassium Chloride 10 Meq Tabcr) 10 meq PO DAILY [facility] Stop: 12/22/24 08:59 Last Admin: 11/22/24 09:28 Dose: 10 meq Documented By: EMILY Medical Decision Making Differential Diagnosis Differential diagnosis: Etiologies such as biliary colic, cholecystitis, hepatitis, pancreatitis, cardiac disease, pancreatitis, gastritis, peptic ulcer disease, appendicitis, cystitis, diverticulitis, mesenteric ischemia, inflammatory bowel disease, ileus, bowel obstruction, testicular/adnexal torsion, aortic pathology, shingles, as well as others were considered Laboratory Data 11/22/24 08:46 11/22/24 08:46 Lab Results 11/21/24 11/22/24 Range/Units 20:57 01:33 WBC 9.04 (4.8-10.8) K/ul RBC 4.78 (4.20-5.40) M/uL Hgb 14.0 (12.0-16.0) g/dl Hct 42.0 (37.0-47.0) % MCV 87.9 (80.0-100.0) fL MCH 29.3 (25.0-34.0) pg MCHC 33.3 (32.0-36.0) g/dL RDW Std Deviation 41.3 (36.4-46.3) fL RDW Coeff of Samia 12.8 (11.5-14.5) % Plt Count 374 (130-400) K/uL MPV 9.8 (9.4-12.4) fL Immature Gran % (Auto) 0.3 % Neut % (Auto) 70.5 % Lymph % (Auto) 20.8 % O'Brien % (Auto) 6.2 % Eos % (Auto) 1.4 % Baso % (Auto) 0.8 % Neut # (Auto) 6.37 (1.40-6.50) K/uL Lymph # (Auto) 1.88 (1.20-3.40) K/uL O[place]Brien # (Auto) 0.56 (0.11-0.59) K/uL Eos # (Auto) 0.13 (0.00-0.50) K/uL Baso # (Auto) 0.07 (0.00-0.20) K/uL Immature Gran # (Auto) 0.03 (0.01-0.20) K/uL ESR 49 H (0-30) mm/hr Sodium 139 (136-145) mmol/L Potassium 3.9 (3.5-5.1) mmol/L Chloride 105 (98-107) mmol/L Carbon Dioxide 27 (21-32) mmol/L Anion Gap 7 (3-11) BUN 12 (6-23) mg/dl Creatinine 0.64 (0.6-1.2) mg/dl Est Cr Clr Drug Dosing 102.5 ml/min eGFR 106.93 BUN/Creatinine Ratio 18.8 (10-20) Glucose 98 (70-99(Fasting)) mg/dl Calcium 9.2 (8.6-10.3) mg/dl Total Bilirubin 0.3 (0.2-1.0) mg/dl AST 20 (13-39) U/L ALT 12 (7-52) U/L Alkaline Phosphatase 65 (34-104) U/L C-Reactive Protein < 0.50 (0-0.5) mg/dl Total Protein 7.8 (6.0-8.3) gm/dl Albumin 4.0 (3.4-5.0) gm/dl Globulin 3.8 (2.5-4.0) gm/dl Albumin/Globulin Ratio 1.1 (0.9-2) Lipase 22 (11-82) U/L HCG, Qual Negative (Negative) Urine Color Yellow Urine Appearance Clear (Clear) Urine pH 7.0 (4.5-7.5) Ur Specific [place] > 1.045 H (1.000-1.030) Urine Protein Negative (Negative) Urine Glucose (UA) Negative (Negative) Urine Ketones Negative (Negative) Urine Blood Trace H (Negative) Urine Nitrite Negative (Negative) Urine Bilirubin Negative (Negative) Urine Urobilinogen Negative (Negative) Ur Leukocyte Esterase Negative (Negative) Urine WBC (Auto) 0-5 (0-5) /hpf Urine RBC (Auto) 3-5 H (0-2) /hpf U Hyaline Cast (Auto) 0-2 (0-2) /lpf U Epithel Cells (Auto) 0-2 (0-2) /hpf Urine Bacteria (Auto) None Seen (None Seen) Urine Opiates Screen Pos H (Neg) Ur Methadone, Qual Neg (Neg) Urine Fentanyl Screen Neg (Neg) Urine Barbiturates Neg (Neg) Ur Phencyclidine (PCP) Neg (Neg) U Amphetamin/Meth Scrn Neg (Neg) MDMA (Ecstasy) Screen Neg (Neg) U Benzodiazepines Scrn Neg (Neg) Ur Cocaine Metabolite Neg (Neg) U Marijuana (THC) Screen Neg (Neg) Imaging Data Radiologist's Impression: Abdomen/Pelvis CT 11/21/24 21:36 Exam(s): CT ABDOMEN + PELVIS With Contrast IV Amt: 93 ml optiray 320 EXAM: CT Abdomen and Pelvis With Intravenous Contrast CLINICAL HISTORY: Reason for exam: Abd pain. Hx Crohn and sbo.. TECHNIQUE: Axial computed tomography images of the abdomen and pelvis with intravenous contrast. Automated exposure control was utilized for the study. A dose lowering technique was utilized adhering to the principles of ALARA. CONTRAST: Patient received 93 ml optiray 320 of IV contrast COMPARISON: CT abdomen and pelvis with contrast dated June 12, 2024. FINDINGS: Lung bases: Sections through the lung bases demonstrate no acute findings. ABDOMEN: Liver: Unremarkable. No mass. Gallbladder and bile ducts: Distended gallbladder containing 2 moderate to large stones. No gallbladder wall thickening or surrounding edema or fluid. Pancreas: Unremarkable. No mass. No ductal dilation. Spleen: Unremarkable. No splenomegaly. Adrenals: Unremarkable. No mass. Kidneys and ureters: Unremarkable. No solid mass. No hydronephrosis. Stomach and bowel: There has been a previous right colectomy. There is marked narrowing of the small bowel just before the enterocolic anastomosis in the anterior abdomen. The bowel appears to have adhesions to the adjacent anterior abdominal wall in this location. There is marked dilatation of the small bowel proximal to this area of adhesion and narrowing consistent with small bowel obstruction. PELVIS: Appendix: See above. Bladder: Unremarkable. No mass. ABDOMEN and PELVIS: Intraperitoneal space: Unremarkable. No free air. No significant fluid collection. Bones/joints: No acute findings. Soft tissues: Unremarkable. Vasculature: Unremarkable. No abdominal aortic aneurysm. Lymph nodes: Unremarkable. No enlarged lymph nodes. IMPRESSION: There has been a previous right colectomy. There is marked narrowing of the small bowel just before the enterocolic anastomosis in the anterior abdomen. The bowel appears to have adhesions to the adjacent anterior abdominal wall in this location. There is marked dilatation of the small bowel proximal to this area of adhesion and narrowing consistent with small bowel obstruction. Electronically signed by: Alexx Tran MD 11/22/24 03:29 AM [facility] Narrative Physical exam and history were performed. Nursing notes, EMR, and Medication List were personally reviewed. No social concerns were identified as barriers to patients care. History was provided by the Patient. Patient appears to have abdominal pain bringing her to the ER. She does have a history of several small bowel obstructions in the past. Patient does not appear toxic on arrival. IV access was established and labs were obtained. She was hydrated with normal saline and given as needed IV morphine and IV Zofran. She was hydrated normal saline and sent to CT scan for imaging of her abdomen and pelvis. Patient's blood work is as above and was reviewed. She does not have a significantly elevated white blood cell count, gross anemia, bandemia, or significant electrolyte imbalance. Transaminases not diagnostic. Urine without distinct evidence of infection. CT scan was performed and reviewed by myself and radiology, and appears to show a small bowel obstruction, which would correlate with the patient's symptoms. Escalation of care was considered, and is felt to be necessary. Case was discussed with the on-call surgical team, who did evaluate the patient here in the ER. Patient was also discussed with the on-call hospitalist team who agreed to evaluate the patient for admission. Of note I did place an order for an NG tube, which patient declined. Additionally towards the end of the ER stay as I was updating the patient on her findings she stated that she was very upset with nursing and ancillary staff. I did attempt to further expand upon this, however the patient did not wish to continue these conversations. Please see the hospitalist and surgical team dictation for further patient course, plan, disposition. The chart was completed utilizing [employer] Speech Voice Recognition Software. Grammatical errors, random word insertions, pronoun errors, and incomplete sentences are an occasional consequence of this system due to software limitations, ambient noise, and hardware issues. Any formal questions or concerns about the content, text, or information contained within the body of this dictation should be directly addressed to the provider for clarification. Impression & Plan SBO (small bowel obstruction), Crohn's disease Discharge Plan Visit Data Chief Complaint: Abdominal Pain Stated Complaint: ABDOMINAL PAIN ED Provider: Saima Phillips ED Midlevel Provider: Andrae Garcia Discharge Problem: SBO (small bowel obstruction), Crohn's disease Patient Disposition: Admitted As Inpatient Discharge Instructions Interventions: ED Discharge Assessment Last Done: 11/22/24 07:52
[2024-11-21] MEDS: MoRPHine SULFATE 4 MG/ML 1 ML CARP\\VIAL IV PRN (21:49)
[2024-11-21] MEDS: ONDANSETRON INJ 2 MG/ML 2 ML VIAL IV STA (21:49)
[2024-11-21] MEDS: SODIUM CHLORIDE 0.9% 1,000 ML IV ONE (21:49)
[2024-11-21 21:57] LABS: Basophils # (auto) 0.07 K/uL (0.00-0.20); Basophils % (auto) 0.8 %; Eosinophils # (auto) 0.13 K/uL (0.00-0.50); Eosinophils % (auto) 1.4 %; Immature Granulocytes # (auto) 0.03 K/uL (0.01-0.20); Immature Granulocytes % (auto) 0.3 %; Lymphocytes # (auto) 1.88 K/uL (1.20-3.40); Lymphocytes % (auto) 20.8 %; Mean Corpuscular Hemoglobin 29.3 pg (25.0-34.0); Mean Corpuscular Hgb Conc 33.3 g/dL (32.0-36.0); Mean Corpuscular Volume 87.9 fL (80.0-100.0); Mean Platelet Volume 9.8 fL (9.4-12.4); Monocytes # (auto) 0.56 K/uL (0.11-0.59); Monocytes % (auto) 6.2 %; Neutrophils # (auto) 6.37 K/uL (1.40-6.50); Neutrophils % (auto) 70.5 %; Platelet Count 374 K/uL (130-400); RDW Coefficient of Variation 12.8 % (11.5-14.5); RDW Standard Deviation 41.3 fL (36.4-46.3); Red Blood Count 4.78 M/uL (4.20-5.40); White Blood Count 9.04 K/ul (4.8-10.8)
[2024-11-21 22:08] LABS: Alanine Aminotransferase 12 U/L (7-52); Albumin Globulin Ratio 1.1 (0.9-2); Alkaline Phosphatase 65 U/L (34-104); Anion Gap 7 (3-11); Aspartate Aminotransferase 20 U/L (13-39); BUN Creatinine Ratio 18.8 (10-20); Bilirubin,Total 0.3 mg/dl (0.2-1.0); Blood Urea Nitrogen 12 mg/dl (6-23); Calcium 9.2 mg/dl (8.6-10.3); Carbon Dioxide 27 mmol/L (21-32); Chloride 105 mmol/L (98-107); Creatinine Clr Calc Pharmacy 102.5 ml/min; Globulin 3.8 gm/dl (2.5-4.0); Glucose 98 mg/dl (70-99(Fasting)); Lipase 22 U/L (11-82); Potassium 3.9 mmol/L (3.5-5.1); Sodium 139 mmol/L (136-145); Total Protein 7.8 gm/dl (6.0-8.3)
[2024-11-21 22:14] LABS: Pregnancy Test, Serum Negative (Negative)
[2024-11-21 22:27] LABS: C Reactive Protein < 0.50 mg/dl (0-0.5)
[2024-11-21] MEDS: OPTIRAY 320 100ml IV ONE (23:22)
[2024-11-22 02:33] LABS: Appearance Urine Clear (Clear); Bacteria Urine Automated None Seen (None Seen); Bilirubin Urine Negative (Negative); Blood Urine Trace (Negative); Cast Urine Automated 0-2 /lpf (0-2); Color Urine Yellow; Epithelial Cell Urine Auto 0-2 /hpf (0-2); Glucose Urine UA Negative (Negative); Ketones Urine Negative (Negative); Leukocyte Esterase Urine Negative (Negative); Nitrite Urine Negative (Negative); Protein Urine Negative (Negative); Specific Gravity Urine > 1.045 (1.000-1.030); Urobilinogen Urine Negative (Negative); WBC Urine Automated 0-5 /hpf (0-5)
[2024-11-22 03:04] LABS: Amphetamines+Metham, Urine Neg (Neg); Barbiturates, Urine Neg (Neg); Benzodiazepine, Urine Neg (Neg); Cocaine, Urine Neg (Neg); Fentanyl, Urine Neg (Neg); MDMA (Ecstacy), Urine Neg (Neg); Marijuana, Urine Neg (Neg); Methadone, Urine Neg (Neg); Opiate, Urine Pos (Neg); Phencyclidine, Urine Neg (Neg)
--- NOTE | 2024-11-22 03:30 | CT Scan Report ---
Exam(s): CT ABDOMEN + PELVIS With Contrast IV Amt: 93 ml optiray 320 EXAM: CT Abdomen and Pelvis With Intravenous Contrast CLINICAL HISTORY: Reason for exam: Abd pain. Hx Crohn and sbo.. TECHNIQUE: Axial computed tomography images of the abdomen and pelvis with intravenous contrast. Automated exposure control was utilized for the study. A dose lowering technique was utilized adhering to the principles of ALARA. CONTRAST: Patient received 93 ml optiray 320 of IV contrast COMPARISON: CT abdomen and pelvis with contrast dated June 12, 2024. FINDINGS: Lung bases: Sections through the lung bases demonstrate no acute findings. ABDOMEN: Liver: Unremarkable. No mass. Gallbladder and bile ducts: Distended gallbladder containing 2 moderate to large stones. No gallbladder wall thickening or surrounding edema or fluid. Pancreas: Unremarkable. No mass. No ductal dilation. Spleen: Unremarkable. No splenomegaly. Adrenals: Unremarkable. No mass. Kidneys and ureters: Unremarkable. No solid mass. No hydronephrosis. Stomach and bowel: There has been a previous right colectomy. There is marked narrowing of the small bowel just before the enterocolic anastomosis in the anterior abdomen. The bowel appears to have adhesions to the adjacent anterior abdominal wall in this location. There is marked dilatation of the small bowel proximal to this area of adhesion and narrowing consistent with small bowel obstruction. PELVIS: Appendix: See above. Bladder: Unremarkable. No mass. ABDOMEN and PELVIS: Intraperitoneal space: Unremarkable. No free air. No significant fluid collection. Bones/joints: No acute findings. Soft tissues: Unremarkable. Vasculature: Unremarkable. No abdominal aortic aneurysm. Lymph nodes: Unremarkable. No enlarged lymph nodes. IMPRESSION: There has been a previous right colectomy. There is marked narrowing of the small bowel just before the enterocolic anastomosis in the anterior abdomen. The bowel appears to have adhesions to the adjacent anterior abdominal wall in this location. There is marked dilatation of the small bowel proximal to this area of adhesion and narrowing consistent with small bowel obstruction. Electronically signed by: Alexx Tran MD 11/22/24 03:29 AM
--- NOTE | 2024-11-22 04:16 | Surgery Consultation ---
Date of Consultation November 22, 2024 Assessment & Plan (1) SBO (small bowel obstruction): Patient is a 49-year-old female with significant past surgical history and Crohn's disease with recurrent SBOs. The patient presented with abdominal pain for the past day and CT imaging again was consistent with a small bowel obstruction. The patient was seen and evaluated early this morning. She does have tenderness on the right side of the abdomen but denies any nausea or vomiting at this time. Currently there is no need for emergent surgical intervention. Recommend the following: -Treat conservatively for now. Patient at this time is requesting to hold off on NGT placement which is reasonable however I did explain to her if she becomes nauseous or has any vomiting she will need one for bowel decompression. -Keep NPO, IV fluids for hydration, and pain control -Continue to monitor bowel function -Medical management per primary team, surgery will continue to follow Supervising Physician Co-Signing Physician Notes I have seen and examined this pt this am and I agree with this plan History of Present Illness Reason for Consultation: SBO History of Present Illness Patient is a 49-year-old female who presented to the emergency department with complaints of abdominal pain. She states the pain started yesterday and has gotten worse and is mostly located in the right side of her abdomen. She denies any nausea or vomiting since the onset of her pain. The patient does have a history of multiple abdominal surgeries as well as Crohn's disease. She also has had recurrent small bowel obstructions with the most recent being this past March that was managed nonoperatively. She believes the pain feels similar to previous obstructions which ultimately prompted her to come to the emergency room. The patient was worked up and CT imaging was concerning for findings of small bowel obstruction. The patient was seen and evaluated early this morning at bedside. She is resting comfortably, VSS, and is nontoxic appearing. The patient states she is still having quite a bit of pain in her right upper/mid abdomen region however denies any nausea, vomiting, fevers or chills. Allergies Allergy/AdvReac Type Severity Reaction Status Date / Time No Known Allergies Allergy Verified 04/07/24 03:02 Home Medications Medication Instructions Recorded Confirmed Type albuterol sulfate 90 mcg/actuation 2 puff inhalation QID PRN sob 11/22/24 11/22/24 History aerosol inhaler (Ventolin HFA) dextroamphetamine-amphetamine 5 mg 5 mg PO UD 11/22/24 11/22/24 History tablet dextromethorphan IR 45 1 tab PO BID 11/22/24 11/22/24 History mg-bupropion ER 105 mg biphasic tablet (Auvelity) diphenoxylate-atropine 2.5 1 tab PO DAILY PRN Diarrhea 11/22/24 11/22/24 History mg-0.025 mg tablet fluoxetine 20 mg/5 mL (4 mg/mL) 20 mg PO DAILY 11/22/24 11/22/24 History oral solution gabapentin 300 mg capsule 300 mg PO UD 11/22/24 11/22/24 History gabapentin 600 mg tablet 600 mg PO HS 11/22/24 11/22/24 History lorazepam 0.5 mg tablet 0.5 mg PO TID 11/22/24 11/22/24 History pantoprazole 40 mg tablet,delayed 40 mg PO DAILY 11/22/24 11/22/24 History release potassium chloride 10 mEq 10 meq PO DAILY 11/22/24 11/22/24 History capsule,extended release ustekinumab 90 mg/mL subcutaneous 90 mg subcut UD 11/22/24 11/22/24 History syringe (Stelara) Patient History Medical History History of Clostridioides difficile colitis History of uveitis History of erythema nodosum History of deviated nasal septum Chronic maxillary sinusitis Surgical History History of colonoscopy Last 07/2019 History of rhinoplasty Multiple nasal surgeries x3 History of colectomy Family History Father Heart disease TIA (transient ischemic attack) Mother Heart disease FH: diverticulitis Sister Crohn's disease Diabetes Social History Smoking Status: Current every day smoker Tobacco Type: Cigarettes Cigarettes Per Day: 1/2 ppd; Second Hand Exposure: No; Do You Dip or Chew Tobacco: No; Hx Alcohol Use: Yes Alcohol type: beer Alcohol type Comment: Once a month Hx Substance Use: No Preferred Language: Maltese Communication Ability: Effective Choke Reamer Required: No Beliefs That Will Affect Care: None marital status: Single Current Living Situation: Other Current Living Situation Comment: Friend Other Information That Helps Us Care for You: No Feels Safe at Home: Yes Assistive Devices: None Review of Systems Constitutional: no fever, no chills and no sweats Respiratory: no dyspnea and no problem reported Cardiovascular: no chest pain, no palpitations and no syncope Gastrointestinal: + abdominal pain; no nausea and no vomit ing Genitourinary: no dysuria, no urinary frequency and no hematuria Physical Exam Constitutional: WD/WN, vitals as above Respiratory: normal respiratory effort, lungs clear to auscultation Cardiovascular: RRR, no murmur, no edema Gastrointestinal (Abdomen): Abdomen soft, nondistended, +mild TTP in the right upper/mid abdomen without rebound or guarding. Skin: no rashes, warm and dry Results & Data Vital Signs (Past 12 Hours) Vital Signs Temp Pulse Pulse Resp BP BP Pulse Ox 11/22/24 04:00 93 H 16 130/70 94 11/22/24 03:03 64 16 131/74 93 11/22/24 02:00 69 20 119/86 92 11/22/24 00:59 65 11/22/24 00:00 72 22 134/80 93 11/21/24 22:45 67 16 138/87 98 11/21/24 22:00 16 96 11/21/24 21:08 87 11/21/24 20:54 36.9 C 95 H 18 134/86 98 O2 Del Method 11/22/24 04:00 Room Air 11/22/24 03:03 Room Air 11/22/24 02:00 Room Air 11/22/24 00:59 11/22/24 00:00 Room Air 11/21/24 22:45 Room Air 11/21/24 22:00 Room Air 11/21/24 21:08 11/21/24 20:54 Room Air Diagnostic Findings Exam(s): CT ABDOMEN + PELVIS With Contrast IV Amt: 93 ml optiray 320 EXAM: CT Abdomen and Pelvis With Intravenous Contrast CLINICAL HISTORY: Reason for exam: Abd pain. Hx Crohn and sbo.. TECHNIQUE: Axial computed tomography images of the abdomen and pelvis with intravenous contrast. Automated exposure control was utilized for the study. A dose lowering technique was utilized adhering to the principles of ALARA. CONTRAST: Patient received 93 ml optiray 320 of IV contrast COMPARISON: CT abdomen and pelvis with contrast dated June 12, 2024. FINDINGS: Lung bases: Sections through the lung bases demonstrate no acute findings. ABDOMEN: Liver: Unremarkable. No mass. Gallbladder and bile ducts: Distended gallbladder containing 2 moderate to large stones. No gallbladder wall thickening or surrounding edema or fluid. Pancreas: Unremarkable. No mass. No ductal dilation. Spleen: Unremarkable. No splenomegaly. Adrenals: Unremarkable. No mass. Kidneys and ureters: Unremarkable. No solid mass. No hydronephrosis. Stomach and bowel: There has been a previous right colectomy. There is marked narrowing of the small bowel just before the enterocolic anastomosis in the anterior abdomen. The bowel appears to have adhesions to the adjacent anterior abdominal wall in this location. There is marked dilatation of the small bowel proximal to this area of adhesion and narrowing consistent with small bowel obstruction. PELVIS: Appendix: See above. Bladder: Unremarkable. No mass. ABDOMEN and PELVIS: Intraperitoneal space: Unremarkable. No free air. No significant fluid collection. Bones/joints: No acute findings. Soft tissues: Unremarkable. Vasculature: Unremarkable. No abdominal aortic aneurysm. Lymph nodes: Unremarkable. No enlarged lymph nodes. IMPRESSION: There has been a previous right colectomy. There is marked narrowing of the small bowel just before the enterocolic anastomosis in the anterior abdomen. The bowel appears to have adhesions to the adjacent anterior abdominal wall in this location. There is marked dilatation of the small bowel proximal to this area of adhesion and narrowing consistent with small bowel obstruction. PG Care Time/CCT Total # of Minutes Spent Total Time Spent with Patient: Total time spent is greater than 50% in coordination of care (as documented) at patient's floor/unit and/or counseling patient: [place] [address] Inpt Consult Level 1 Patient Type New Medical Decision Making Straight Forward Diagnoses SBO (small bowel obstruction) K56.609
--- NOTE | 2024-11-22 05:37 | History & Physical Report ---
Date of Service November 22, 2024 Assessment & Plan (1) SBO (small bowel obstruction): Plan: 49-year-old female with past med history significant for uncomplicated asthma, history of hypertensive urgency, Crohn's disease, restless leg syndrome, immunodeficiency due to drugs, depression with anxiety, tobacco use disorder presents with abdominal pain since yesterday morning. The pain was getting worse so she came to the ER. Denies any nausea. Yesterday morning she had a small amount of bowel movement. Denies any blood in the stools. Micturating okay. No fevers. No chest pain or shortness of breath. No runny nose or sore throat. Small bowel obstruction History of Crohn's disease CT scan showing narrowing of small bowel just before enterocolic anastomosis in the anterior abdomen. And also small bowel obstruction Refused NG tube for the ER N.p.o., IV fluids, IV antiemetics as needed, IV pain meds as needed General Surgery and GI consult Crohn's disease On Stelara Follow-up with GI GERD On Protonix ADD, anxiety/mood disorder Continue home medication History of prolonged QT We will follow EKG. Tobacco use Counseling DVT prophylaxis Lovenox Disposition Medical floor Full code. History of Present Illness Chief Complaint: Abdominal pain Primary Care Provider: Giovany Correa DO 49-year-old female with past med history significant for uncomplicated asthma, history of hypertensive urgency, Crohn's disease, restless leg syndrome, immunodeficiency due to drugs, depression with anxiety, tobacco use disorder presents with abdominal pain since yesterday morning. The pain was getting worse so she came to the ER. Denies any nausea. Yesterday morning she had a small amount of bowel movement. Denies any blood in the stools. Micturating okay. No fevers. No chest pain or shortness of breath. No runny nose or sore throat. Past medical history. As mentioned above Past surgical history. Abdominal surgery. Colonoscopy. Colonoscopy with biopsy. Cystoscopy with insertion of stent. EGD. Laparoscopic partial colectomy with anastomosis. Diagnostic laparoscopy. Nasal sinus endoscopy. Rhinoplasty. Tonsillectomy. Removal of turbinate bones. Bowel resection. Repair of nasal septum. Upper GI endoscopy. Social history. Smokes 0.5 pack a day for 20 years. Drinks alcohol. No drug use. Family history. Father has asthma. Esophageal cancer. TIA. Mother has arthritis. Diverticulitis. Heart disorder. Sister has Crohn's disease. Sister has diabetes. Paternal grandfather had cancer. Allergies Allergy/AdvReac Type Severity Reaction Status Date / Time No Known Allergies Allergy Verified 04/07/24 03:02 Home Medications Medication Instructions Recorded Confirmed Type albuterol sulfate 90 mcg/actuation 2 puff inhalation QID PRN sob 11/22/24 11/22/24 History aerosol inhaler (Ventolin HFA) dextroamphetamine-amphetamine 5 mg 5 mg PO UD 11/22/24 11/22/24 History tablet dextromethorphan IR 45 1 tab PO BID 11/22/24 11/22/24 History mg-bupropion ER 105 mg biphasic tablet (Auvelity) diphenoxylate-atropine 2.5 1 tab PO DAILY PRN Diarrhea 11/22/24 11/22/24 History mg-0.025 mg tablet fluoxetine 20 mg/5 mL (4 mg/mL) 20 mg PO DAILY 11/22/24 11/22/24 History oral solution gabapentin 300 mg capsule 300 mg PO UD 11/22/24 11/22/24 History gabapentin 600 mg tablet 600 mg PO HS 11/22/24 11/22/24 History lorazepam 0.5 mg tablet 0.5 mg PO TID 11/22/24 11/22/24 History pantoprazole 40 mg tablet,delayed 40 mg PO DAILY 11/22/24 11/22/24 History release potassium chloride 10 mEq 10 meq PO DAILY 11/22/24 11/22/24 History capsule,extended release ustekinumab 90 mg/mL subcutaneous 90 mg subcut UD 11/22/24 11/22/24 History syringe (Stelara) Past Med/Surg History Problem List Partial small bowel obstruction (Acute) Colitis (Acute) Abdominal pain (Acute) SBO (small bowel obstruction) (Acute) SBO (small bowel obstruction) (Acute) History of surgery (01/04/23) Attempted Laparoscopy, Exploratory Laparotomy, Lysis of Adhesions(Not Applicable) - Alexx Garrett MD, FACS Encounter for pre-operative examination Acute cholecystitis SBO (small bowel obstruction) (Acute) Prolonged QT interval Cholelithiasis Abdominal pain (Acute) Near syncope (Acute) Hypokalemia Hypophosphatemia SBO (small bowel obstruction) (Acute) Abnormal CT scan, chest Acute hypoxemic respiratory failure Abdominal pain (Acute) Hypokalemia (Acute) Hypoxia (Acute) Pneumonia (Acute) Tobacco abuse Crohn's disease (Acute) Depression with anxiety Medical History History of Clostridioides difficile colitis History of uveitis History of erythema nodosum History of deviated nasal septum Chronic maxillary sinusitis Surgical History History of colonoscopy Last 07/2019 History of rhinoplasty Multiple nasal surgeries x3 History of colectomy Family History Father Heart disease TIA (transient ischemic attack) Mother Heart disease FH: diverticulitis Sister Crohn's disease Diabetes Social History Smoking Status: Current every day smoker Tobacco Type: Cigarettes Cigarettes Per Day: 1/2 ppd; Second Hand Exposure: No; Do You Dip or Chew Tobacco: No; Hx Alcohol Use: Yes Alcohol type: beer Alcohol type Comment: Once a month Hx Substance Use: No Preferred Language: Yakut Communication Ability: Effective Cigarette Filter Inspector Required: No Beliefs That Will Affect Care: None marital status: Single Current Living Situation: Other Current Living Situation Comment: Friend Feels Safe at Home: Yes Assistive Devices: None Review of Systems Review of Systems: All systems reviewed & are unremarkable except as noted in HPI & below Physical Exam Physical Exam: General-Not in acute distress. Head- atraumatic Eyes- PERRL. ENT- oropharynx clear Neck- supple, no JVD. Lungs- clear to auscultation no wheezing or crackles Heart- regular rhythm; no murmur, no gallop. Abdomen- sluggish bowel sounds, soft, diffuse mild tender, no distension. Extremities- no pretibial edema, no erythema seen Neuro- alert, oriented PERRL, no facial palsy; no dysarthria; moves extremities Results & Data Results & Data Vital Signs (Past 12 Hours) Vital Signs Temp Pulse Pulse Resp BP BP Pulse Ox 11/22/24 05:05 75 11/22/24 04:00 93 H 16 130/70 94 04/02/25 03:03 64 16 131/74 93 11/22/24 02:00 69 20 119/86 92 11/22/24 00:59 65 11/22/24 00:00 72 22 134/80 93 11/21/24 22:45 67 16 138/87 98 11/21/24 22:00 16 96 11/21/24 21:08 87 11/21/24 20:54 36.9 C 95 H 18 134/86 98 O2 Del Method 11/22/24 05:05 11/22/24 04:00 Room Air 11/22/24 03:03 Room Air 11/22/24 02:00 Room Air 11/22/24 00:59 11/22/24 00:00 Room Air 11/21/24 22:45 Room Air 11/21/24 22:00 Room Air 11/21/24 21:08 11/21/24 20:54 Room Air Diagnostic Findings Laboratory Results WBC 9.04 K/ul (4.8-10.8) 11/21/24 20:57 RBC 4.78 M/uL (4.20-5.40) 11/21/24 20:57 Hgb 14.0 g/dl (12.0-16.0) 11/21/24 20:57 Hct 42.0 % (37.0-47.0) 11/21/24 20:57 MCV 87.9 fL (80.0-100.0) 11/21/24 20:57 MCH 29.3 pg (25.0-34.0) 11/21/24 20:57 MCHC 33.3 g/dL (32.0-36.0) 11/21/24 20:57 RDW Std Deviation 41.3 fL (36.4-46.3) 11/21/24 20:57 RDW Coeff of Samia 12.8 % (11.5-14.5) 11/21/24 20:57 Plt Count 374 K/uL (130-400) 11/21/24 20:57 MPV 9.8 fL (9.4-12.4) 11/21/24 20:57 Immature Gran % (Auto) 0.3 % 11/21/24 20:57 Neut % (Auto) 70.5 % 11/21/24 20:57 Lymph % (Auto) 20.8 % 11/21/24 20:57 [place] % (Auto) 6.2 % 11/21/24 20:57 Eos % (Auto) 1.4 % 11/21/24 20:57 Baso % (Auto) 0.8 % 11/21/24 20:57 Neut # (Auto) 6.37 K/uL (1.40-6.50) 11/21/24 20:57 Lymph # (Auto) 1.88 K/uL (1.20-3.40) 11/21/24 20:57 [place] # (Auto) 0.56 K/uL (0.11-0.59) 11/21/24 20:57 Eos # (Auto) 0.13 K/uL (0.00-0.50) 11/21/24 20:57 Baso # (Auto) 0.07 K/uL (0.00-0.20) 11/21/24 20:57 Immature Gran # (Auto) 0.03 K/uL (0.01-0.20) 11/21/24 20:57 ESR 49 mm/hr (0-30) H 11/21/24 20:57 Sodium 139 mmol/L (136-145) 11/21/24 20:57 Potassium 3.9 mmol/L (3.5-5.1) 11/21/24 20:57 Chloride 105 mmol/L (98-107) 11/21/24 20:57 Carbon Dioxide 27 mmol/L (21-32) 11/21/24 20:57 Anion Gap 7 (3-11) 11/21/24 20:57 BUN 12 mg/dl (6-23) 11/21/24 20:57 Creatinine 0.64 mg/dl (0.6-1.2) 11/21/24 20:57 Est Cr Clr Drug Dosing 102.5 ml/min 11/21/24 20:57 eGFR 106.93 11/21/24 20:57 BUN/Creatinine Ratio 18.8 (10-20) 11/21/24 20:57 Glucose 98 mg/dl (70-99(Fasting)) 11/21/24 20:57 Calcium 9.2 mg/dl (8.6-10.3) 11/21/24 20:57 Total Bilirubin 0.3 mg/dl (0.2-1.0) 11/21/24 20:57 AST 20 U/L (13-39) 11/21/24 20:57 ALT 12 U/L (7-52) 11/21/24 20:57 Alkaline Phosphatase 65 U/L (34-104) 11/21/24 20:57 C-Reactive Protein < 0.50 mg/dl (0-0.5) 11/21/24 20:57 Total Protein 7.8 gm/dl (6.0-8.3) 11/21/24 20:57 Albumin 4.0 gm/dl (3.4-5.0) 11/21/24 20:57 Globulin 3.8 gm/dl (2.5-4.0) 11/21/24 20:57 Albumin/Globulin Ratio 1.1 (0.9-2) 11/21/24 20:57 Lipase 22 U/L (11-82) 11/21/24 20:57 HCG, Qual Negative (Negative) 11/21/24 20:57 Urine Color Yellow 11/22/24 01:33 Urine Appearance Clear (Clear) 11/22/24 01:33 Urine pH 7.0 (4.5-7.5) 11/22/24 01:33 Ur Specific [place] > 1.045 (1.000-1.030) H 11/22/24 01:33 Urine Protein Negative (Negative) 11/22/24 01:33 Urine Glucose (UA) Negative (Negative) 11/22/24 01:33 Urine Ketones Negative (Negative) 11/22/24 01:33 Urine Blood Trace (Negative) H 11/22/24 01:33 Urine Nitrite Negative (Negative) 11/22/24 01:33 Urine Bilirubin Negative (Negative) 11/22/24 01:33 Urine Urobilinogen Negative (Negative) 11/22/24 01:33 Ur Leukocyte Esterase Negative (Negative) 11/22/24 01:33 Urine WBC (Auto) 0-5 /hpf (0-5) 11/22/24 01:33 Urine RBC (Auto) 3-5 /hpf (0-2) H 11/22/24 01:33 U Hyaline Cast (Auto) 0-2 /lpf (0-2) 11/22/24 01:33 U Epithel Cells (Auto) 0-2 /hpf (0-2) 11/22/24 01:33 Urine Bacteria (Auto) None Seen (None Seen) 11/22/24 01:33 Urine Opiates Screen Pos (Neg) H 11/22/24 01:33 Ur Methadone, Qual Neg (Neg) 11/22/24 01:33 Urine Fentanyl Screen Neg (Neg) 11/22/24 01:33 Urine Barbiturates Neg (Neg) 11/22/24 01:33 Ur Phencyclidine (PCP) Neg (Neg) 11/22/24 01:33 U Amphetamin/Meth Scrn Neg (Neg) 11/22/24 01:33 MDMA (Ecstasy) Screen Neg (Neg) 11/22/24 01:33 U Benzodiazepines Scrn Neg (Neg) 11/22/24 01:33 Ur Cocaine Metabolite Neg (Neg) 11/22/24 01:33 U Marijuana (THC) Screen Neg (Neg) 11/22/24 01:33 Impressions Abdomen/Pelvis CT 11/21/24 21:36 Exam(s): CT ABDOMEN + PELVIS With Contrast IV Amt: 93 ml optiray 320 EXAM: CT Abdomen and Pelvis With Intravenous Contrast CLINICAL HISTORY: Reason for exam: Abd pain. Hx Crohn and sbo.. TECHNIQUE: Axial computed tomography images of the abdomen and pelvis with intravenous contrast. Automated exposure control was utilized for the study. A dose lowering technique was utilized adhering to the principles of ALARA. CONTRAST: Patient received 93 ml optiray 320 of IV contrast COMPARISON: CT abdomen and pelvis with contrast dated June 12, 2024. FINDINGS: Lung bases: Sections through the lung bases demonstrate no acute findings. ABDOMEN: Liver: Unremarkable. No mass. Gallbladder and bile ducts: Distended gallbladder containing 2 moderate to large stones. No gallbladder wall thickening or surrounding edema or fluid. Pancreas: Unremarkable. No mass. No ductal dilation. Spleen: Unremarkable. No splenomegaly. Adrenals: Unremarkable. No mass. Kidneys and ureters: Unremarkable. No solid mass. No hydronephrosis. Stomach and bowel: There has been a previous right colectomy. There is marked narrowing of the small bowel just before the enterocolic anastomosis in the anterior abdomen. The bowel appears to have adhesions to the adjacent anterior abdominal wall in this location. There is marked dilatation of the small bowel proximal to this area of adhesion and narrowing consistent with small bowel obstruction. PELVIS: Appendix: See above. Bladder: Unremarkable. No mass. ABDOMEN and PELVIS: Intraperitoneal space: Unremarkable. No free air. No significant fluid collection. Bones/joints: No acute findings. Soft tissues: Unremarkable. Vasculature: Unremarkable. No abdominal aortic aneurysm. Lymph nodes: Unremarkable. No enlarged lymph nodes. IMPRESSION: There has been a previous right colectomy. There is marked narrowing of the small bowel just before the enterocolic anastomosis in the anterior abdomen. The bowel appears to have adhesions to the adjacent anterior abdominal wall in this location. There is marked dilatation of the small bowel proximal to this area of adhesion and narrowing consistent with small bowel obstruction. Electronically signed by: Alexx Tran MD 11/22/24 03:29 AM Code Status & VTE Plan VTE Prophylaxis Plan VTE Prophylaxis will be ordered: Yes
[2024-11-22] MEDS ORDERED: ALBUTEROL HFA 8 GM INHALER INH PRN (08:15)
[2024-11-22] MEDS ORDERED: HYDROmorphone INJ 0.5 MG/0.5 ML SYR IV PRN (08:15)
[2024-11-22 09:10] LABS: Basophils # (auto) 0.06 K/uL (0.00-0.20); Basophils % (auto) 0.8 %; Eosinophils # (auto) 0.12 K/uL (0.00-0.50); Eosinophils % (auto) 1.6 %; Hematocrit (blood only) 40.5 % (37.0-47.0); Immature Granulocytes # (auto) 0.03 K/uL (0.01-0.20); Immature Granulocytes % (auto) 0.4 %; Lymphocytes # (auto) 2.56 K/uL (1.20-3.40); Lymphocytes % (auto) 34.6 %; Mean Corpuscular Hemoglobin 28.5 pg (25.0-34.0); Mean Corpuscular Hgb Conc 32.1 g/dL (32.0-36.0); Mean Corpuscular Volume 88.8 fL (80.0-100.0); Monocytes # (auto) 0.65 K/uL (0.11-0.59); Monocytes % (auto) 8.8 %; Neutrophils # (auto) 3.97 K/uL (1.40-6.50); Neutrophils % (auto) 53.8 %; Platelet Count 320 K/uL (130-400); RDW Coefficient of Variation 12.6 % (11.5-14.5); RDW Standard Deviation 41.2 fL (36.4-46.3); Red Blood Count 4.56 M/uL (4.20-5.40); White Blood Count 7.39 K/ul (4.8-10.8)
[2024-11-22] MEDS: LORazepam 0.5 MG TAB PO SCH (09:28)
[2024-11-22] MEDS: PANTOprazole 40 MG TAB PO SCH (09:28)
[2024-11-22] MEDS: ONDANSETRON INJ 2 MG/ML 2 ML VIAL IV PRN (09:28)
[2024-11-22] MEDS: HYDROmorphone INJ 0.5 MG/0.5 ML SYR IV PRN ×2 (09:28→12:30)
[2024-11-22] MEDS: POTASSIUM CHLORIDE 10 MEQ TABCR PO SCH ×2 (09:28→13:30)
[2024-11-22] MEDS: GABAPENTIN 300 MG CAP PO SCH (09:28)
[2024-11-22] MEDS: ENOXAPARIN INJ 40 MG/0.4 ML SYR SQ SCH (09:29)
[2024-11-22 09:31] LABS: BUN Creatinine Ratio 15.2 (10-20); Calcium 8.9 mg/dl (8.6-10.3); Creatinine Clr Calc Pharmacy 99.4 ml/min; Magnesium 1.7 mg/dl (1.7-2.4); Potassium 3.3 mmol/L (3.5-5.1)
[2024-11-22] MEDS: DEXTROAMPHETAMINE/AMPHETAMIME IR 5 MG TAB PO SCH (09:42)
[2024-11-22] MEDS: LACTATED RINGER'S 1,000 ML IV SCH (09:44)
--- NOTE | 2024-11-22 09:47 | Electrocardiogram Report ---
Test Reason : Blood Pressure : */* mmHG Vent. Rate : 56 BPM Atrial Rate : 56 BPM P-R Int : 130 ms QRS Dur : 84 ms QT Int : 460 ms P-R-T Axes : 49 9 39 degrees QTcB Int : 443 ms Sinus bradycardia Otherwise normal ECG When compared with ECG of 15-Apr-2023 00:05, No significant change was found Confirmed by Anjum Del Rosario ([id number]) on 11/22/2024 9:46:06 AM Referred By: REFERRED SELF Confirmed By: nAjum Del Rosario
--- NOTE | 2024-11-22 09:52 | Gastrointestinal Consultation ---
Date of Consultation November 22, 2024 Assessment & Plan (1) Partial small bowel obstruction: (2) Crohn's disease: Plan Patient with history of crohn's disease with stricture s/p several surgeries in the past and recurrent SBO, admitted with another SBO. - she is refusing NG at this time. - can start methylprednisolone 40mg IV to see if this helps as she admits this has helped in the past. - she will need to follow up witih her regular Gastroenterology team at [facility] upon discharge. Likely will need to also see colorectal surgery. - surgery also following. Supervising Physician Co-Signing Physician Notes I personally saw and examined the patient. I have reviewed the chart and agree with the documentation provided by the CULLET WASHER including discussion about the assessment, treatment and plan. Briefly, 49 year old female with a past med history significant for uncomplicated asthma, history of hypertensive urgency, Crohn's disease, restless leg syndrome, immunodeficiency due to drugs, depression with anxiety, tobacco use disorder, who presented to the ED on 11/21 with abdominal pain that started 1 day prior to presentation. She follows with Dr. Rowley at [facility] as an outpatient and treats her Crohn's disease with yamile. She has had multiple bowel resections in the past and had stricturing disease resulting in admission last year. Since her last admission, she tells me that she had been sent to [place] and had a colonoscopy for her stricture that could not resolve her issues. Fuentes presents with CT showing a small bowel obstruction at the enterocolonic anastomosis. She has a lot of adhesions in this area and she clearly has some active disease. He is refusing an NG tube. Does not have nausea at this point. Still has pain at night and has not passed gas. We will try Solu-Medrol 20 every 8 to see if we can aid with the small bowel obstruction. 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 To get best results she should also stop smoking. She says she has a lot of mental health issues and it would break her if she stop smoking right now. We will treat her conservatively and see how she does. If she does not improve in next day or two, then NG tube and consider transfer to [place] for surgical evaluation. Please obtain a KUB in the morning History of Present Illness Reason for Consultation: Crohn's disease, SBO Requesting Physician: Zhou Andrea MD Attending Physician: Claus Suarez DO History of Present Illness Patient is a 49 year old female with a past med history significant for uncomplicated asthma, history of hypertensive urgency, Crohn's disease, restless leg syndrome, immunodeficiency due to drugs, depression with anxiety, tobacco use disorder, who presented to the ED on 11/21 with abdominal pain that started 1 day prior to presentation. She follows with Dr. Rowley at [facility] as an outpatient and treats her Crohn's disease with yamile. She has had multiple bowel resections in the past and had stricturing disease resulting in admission last year. Since her last admission, she tells me that she had been sent to [place] and had a colonoscopy for her stricture that could not resolve her issues. She tells me she had not seen colorectal surgery. On evaluation in the ED, she had a CT scan per below, but showing SBO. She has been refusing NG placement. She tells me that in the past, she had done well with just doing a steroid course. She is still having abdominal pain, she has not moved her bowels and is not passing gas. no nausea, vomiting. CT 11/21 There has been a previous right colectomy. There is marked narrowing of the small bowel just before the enterocolic anastomosis in the anterior abdomen. The bowel appears to have adhesions to the adjacent anterior abdominal wall in this location. There is marked dilatation of the small bowel proximal to this area of adhesion and narrowing consistent with small bowel obstruction. Allergies Allergy/AdvReac Type Severity Reaction Status Date / Time No Known Allergies Allergy Verified 04/07/24 03:02 Home Medications Medication Instructions Recorded Confirmed Type albuterol sulfate 90 mcg/actuation 2 puff inhalation QID PRN sob 11/22/24 11/22/24 History aerosol inhaler (Ventolin HFA) dextroamphetamine-amphetamine 5 mg 5 mg PO UD 11/22/24 11/22/24 History tablet dextromethorphan IR 45 1 tab PO BID 11/22/24 11/22/24 History mg-bupropion ER 105 mg biphasic tablet (Auvelity) diphenoxylate-atropine 2.5 1 tab PO DAILY PRN Diarrhea 11/22/24 11/22/24 History mg-0.025 mg tablet fluoxetine 20 mg/5 mL (4 mg/mL) 20 mg PO DAILY 11/22/24 11/22/24 History oral solution gabapentin 300 mg capsule 300 mg PO UD 11/22/24 11/22/24 History gabapentin 600 mg tablet 600 mg PO HS 11/22/24 11/22/24 History lorazepam 0.5 mg tablet 0.5 mg PO TID 11/22/24 11/22/24 History pantoprazole 40 mg tablet,delayed 40 mg PO DAILY 11/22/24 11/22/24 History release potassium chloride 10 mEq 10 meq PO DAILY 11/22/24 11/22/24 History capsule,extended release ustekinumab 90 mg/mL subcutaneous 90 mg subcut UD 11/22/24 11/22/24 History syringe (Stelara) Patient History Medical History History of Clostridioides difficile colitis History of uveitis History of erythema nodosum History of deviated nasal septum Chronic maxillary sinusitis Surgical History History of colonoscopy Last 07/2019 History of rhinoplasty Multiple nasal surgeries x3 History of colectomy Family History Father Heart disease TIA (transient ischemic attack) Mother Heart disease FH: diverticulitis Sister Crohn's disease Diabetes Social History Smoking Status: Current every day smoker Tobacco Type: Cigarettes Cigarettes Per Day: 1/2 ppd; Second Hand Exposure: No; Do You Dip or Chew Tobacco: No; Hx Alcohol Use: Yes Alcohol type: beer Alcohol type Comment: Once a month Hx Substance Use: No Preferred Language: [place] Communication Ability: Effective Vp Strategic Partnerships Required: No Beliefs That Will Affect Care: None marital status: Single Current Living Situation: Other Current Living Situation Comment: Friend Other Information That Helps Us Care for You: No Feels Safe at Home: Yes Assistive Devices: None Review of Systems Review of Systems: All systems reviewed & are unremarkable except as noted in HPI & below Physical Exam Constitutional: WD/WN, vitals as above Respiratory: normal respiratory effort, lungs clear to auscultation Cardiovascular: Rate/Rhythm: regular rate and regular rhythm Gastrointestinal (Abdomen): decreased bowel sounds, diffuse tenderness but worse over the right side. no guarding. soft. Psychiatric: Orientation: alert and oriented x 3 Results & Data Vital Signs (Past 12 Hours) Vital Signs Pulse Pulse Resp BP BP Pulse Ox O2 Del Method 11/22/24 07:52 72 16 135/76 97 Nasal Cannula 11/22/24 07:30 72 16 135/76 97 Nasal Cannula 11/22/24 06:00 66 16 134/77 95 Nasal Cannula 11/22/24 05:24 88 L Room Air, Nasal Cannula 11/22/24 05:05 75 11/22/24 04:00 93 H 16 130/70 94 Room Air 11/22/24 03:03 64 16 131/74 93 Room Air 11/22/24 02:00 69 20 119/86 92 Room Air 11/22/24 00:59 65 11/22/24 00:00 72 22 134/80 93 Room Air 11/21/24 22:45 67 16 138/87 98 Room Air 11/21/24 22:00 16 96 Room Air O2 Flow Rate 11/22/24 07:52 2 11/22/24 07:30 2 11/22/24 06:00 2 11/22/24 05:24 11/22/24 05:05 11/22/24 04:00 11/22/24 03:03 11/22/24 02:00 11/22/24 00:59 11/22/24 00:00 11/21/24 22:45 11/21/24 22:00 Coding Level of Care Code 85306 INT INP/OBS CARE 2/55MIN Diagnoses Partial small bowel obstruction K56.600 Crohn's disease K50.90
[2024-11-22] MEDS ORDERED: methylPREDNISolone 125 MG/2 ML VIAL IV SCH (10:15)
--- OUTSIDE RECORDS SUMMARY | 2024-11-22 11:02 | External Medical Summary | Summary of Care ---
Author Name Unknown Organization [facility] Address [address] [facility] [place] [address] Phone [phone] Care Team Providers Care Acetone Recovery Worker Name Role Phone Geoffrey Correavor Eleuterio Primary Care Provider Reason for Visit * Reason Onset Date Comments Medication Refill 10/31/2024 Encounter Details Date Type Department Care Team (Late st Contact Info) Description [facility] [address] [place] [address] Solis Serna CRNP [address] [place] [address] Allergies No known active allergiesdocumented as of this encounter (statuses as of 11/02/2024) Medications OSCAL 500/200 D-3 500-200 MG-UNIT PO TABSIndications:C rohn's disease of colon (HCC) one tab once a day 30 5 11/09/19 09 Active Additional Information Patient taking differently: (No route reported), HS, Reported on 07/02/2022 FISH OIL 1000 MG PO CAPS 1 tab by mouth daily in the evening 0 11/28/19 10 Active NASAL SALINE 0.65 % NA SOLNIndications:C hronic rhinitis,Other chronic sinusitis flush each nostril morning and night and every 2-4 hrs as needed for nasal dryness or congestion 1 Bottle 4 07/31/20 10 Active MUCINEX D 120-1200 MG PO [id number]:C hronic rhinitis,Other chronic sinusitis,Hypertr ophy of nasal turbinates,Dysfun ction of eustachian tube 1 TABLET EVERY 12 HOURS NEEDED FOR NASAL CONGESTION 30 Tab 3 07/31/20 10 Active Additional Information Patient not taking.Reported on 06/30/2022 Albuterol Sulfate HFA 108 (90 Base) MCG/ACT Inhalation Aerosol SolutionIndicatio ns:Acute maxillary sinusitis, recurrence not specified,Bronchi tis, complicated inhale 2 puffs by mouth and INTO THE LUNGS four times a day 18 g 3 02/04/20 21 Active Fluticasone Propionate 50 MCG/ACT Nasal Suspension (Flonase)Indicati ons:Acute sinusitis instill 2 sprays into each nostril once daily 48 g 3 05/19/20 21 Active Multi-Day Oral Tablet Take 1 Tablet by mouth every evening. Active Melatonin 5 MG Oral Capsule Take 1 Capsule by mouth at bedtime. Active Azelastine HCl 137 MCG/SPRAY Nasal SolutionIndicatio ns:Chronic rhinitis instill 2 sprays into each nostril twice a day 30 mL 5 10/20/19 22 Active Potassium Chloride ER 10 MEQ Oral Tablet Extended Release Take 2 Tablets by mouth in the morning. 01/09/20 23 Active oxyCODONE HCl 5 MG Oral Capsule (Oxy IR) Take 1 Capsule by mouth every 4 hours as needed. Active Diclofenac Sodium 1 % External Gel (Voltaren)Indicat ions:Elbow pain, chronic, right apply 4 grams to affected area three times a day NEEDED FOR PAIN APPLY TO ELBOW 350 g 3 03/29/20 23 Active Additional Information Patient not taking.Reported on 05/23/2024 Stelara 90 MG/ML Subcutaneous Solution Prefilled Syringe (Ustekinumab)Jayshree cations:Crohn's disease of colon without complication (HCC) Inject 90 mg under the skin every 4 weeks. 1 mL 5 5 8:55 AM EST 05/05/20 24 Active Ustekinumab 90 MG/ML Subcutaneous Solution Prefilled Syringe (Stelera) Inject 90 mg under the skin once every 4 weeks 1 mL 10/27/19 25 Active Pantoprazole Sodium 40 MG Oral Tablet Delayed Release (Protonix) Take 1 Tablet by mouth in the morning. 90 Tablet 3 10/27/19 25 Active Potassium Chloride ER 10 MEQ Oral Capsule Extended Release Take 1 Capsule by mouth in the morning. 90 Capsule 5 1:20 PM EDT 10/28/19 25 Active Gabapentin 300 MG Oral Capsule (Neurontin) Take 1 Capsule by mouth 2 times a day in the morning and at noon. 60 Capsule 1 5 4:07 PM EDT 11/01/19 25 Active Gabapentin 600 MG Oral Tablet (Neurontin) Take 1 Tablet by mouth at bedtime. 30 Tablet 1 5 4:07 PM EDT 11/01/19 25 Active LORazepam 0.5 MG Oral Tablet (Ativan)Indicatio ns:Anxiety TAKE 1 TABLET BY MOUTH IN THE MORNING, 1 tablet AT NOON AND 1 tablet BEFORE BEDTIME 90 Tablet 11/03/19 25 Active Amphetamine-Dextr oamphetamine 5 MG Oral Tablet (Adderall) Take 1 Tablet by mouth 2 times a day in the morning and at noon. 60 Tablet 11/03/19 25 Active Diphenoxylate-Atr opine 2.5-0.025 MG Oral Tablet (Lomotil)Indicati ons:Crohn's disease of both small and large intestine without complications (HCC) Take 1 Tablet by mouth daily as needed for Diarrhea. 30 Tablet 5 11/02/19 25 Active FLUoxetine HCl 20 MG/5ML Oral Solution (PROzac) Take 20 mL by mouth in the morning. 1800 mL 1 11/03/19 25 Active Dextromethorphan- buPROPion ER 45-105 MG Oral Tablet Extended Release (Auvelity) Take 1 Tablet by mouth in the morning and 1 Tablet before bedtime. 180 Tablet 1 11/03/19 25 Active FLUoxetine HCl 20 MG/5ML Oral Solution (PROzac) Take 20 mL by mouth in the morning. 600 mL 2 09/01/19 25 025 Discontin ued(Refil l) Dextromethorphan- buPROPion ER 45-105 MG Oral Tablet Extended Release (Auvelity) Take 1 Tablet by mouth in the morning and 1 Tablet before bedtime. 60 Tablet 2 09/15/19 25 025 Discontin ued(Refil l) Hospital, Clinic, or Other Facility Administered Medication Ordered Dose Route Frequency Start Date End Date Status albuterol sulfate (PROVENTIL) (2.5 MG/3ML) 0.083% inhalation solution 2.5 mgIndications:ESCOBEDO (dyspnea on exertion) 2.5 mg NEBULIZER PRN 11/15/2019 Act ran documented as of this encounter (statuses as of 11/02/2024) Active Problems Problem Noted Date Diagnosed Date Crohn's disease of both smal l and large intestine without complications 10/12/2024 Essential (primary) hypertension 10/12/2024 Uncomplicated asthma 10/12/2024 Immunodeficiency due to drugs 08/03/2023 Other instability, right shoulder 08/03/2023 Hypertensive urgency 08/03/2023 Restless legs syndrome (RLS) 06/30/2022 Hypokalemia 06/30/2022 Crohn's disease of colon without complication Controlled substance agreement signed 08/28/2015 Vitamin D deficiency 11/21/2014 Overview (05/24/2017): October 2014 = . Discuss with PCP. ICD-10 update of inactive term Tobacco use disorder Depression with anxiety documented as of this encounter (statuses as of 11/02/2024) Resolved Problems Problem Noted Date Diagnosed Date Resolved Date Gastrostomy status 06/30/2022 5 Current mild episode of mai r depressive disorder without prior episode 10/31/2019 2 Crohn's disease of small int estine with complication 06/13/2019 11/07/2021 Amenorrhea, secondary 01/26/20172021 Overview (01/26/2017): No menses in 400+ days. Will check FSH. Lizbeth Corea CNM 01/26/2017 10:50 AM Acute ethmoidal sinusitis 12/28/2016 Chronic ethmoidal sinusitis 12/28/2016 11/07/2021 Chronic maxillary sinusitis 12/28/2016 11/07/2021 IUD 12/21/2012 01/28/2015 Overview (12/21/2012): Mirena placed 10/29. Dysfunction of eustachian tube 07/31/2010 11/07/2021 Follow-up examination, follo wing other surgery 01/01/2010 09/30/2017 Hypertrophy of nasal turbinates 10/21/2007 10/31/2019 Other chronic sinusitis 07/01/200710/21 NONALLERGIC RHINITIS 02/17/2007 020 Deviated nasal septum 02/17/20072021 Acquired deformity of nose 01/20/2007 0 11/07/2021 Acquired deformity of nose 01/20/2007 0 09/27/2008 Overview (09/27/2008): Resolved per Duplicate Protocol #2. S/P (STATUS POST) INTESTINAL ANASTOMOSIS 08/05/2005 11/07/2021 ADVANCE DIRECTIVE INFORMATION 06/16/2005 11/07/2021 Overview (06/16/2005): No, Advance Directive brochure offered , patient declined. REG ENTERITIS, LG INTEST 06/09/2005 Tobacco use disorder 009 Overview (09/27/2008): Resolved per Duplicate Protocol #2. Chronic rhinitis 09/27/2008 Overview (09/27/2008): Resolved per Duplicate Protocol #2. Major depressive disorder Overview (06/15/2017): ICD-10 update of inactive term Crohn's disease 04/30/2021 Crohn's disease 07/24/2013 Anxiety states 11/01/2015 Overview (06/15/2017): ICD-10 update of inactive term documented as of this encounter (statuses as of 11/02/2024) Immunizations Name Administration Dates Next Due COVID-19 mRNA, LNP-s, No Pre serve, 2-Dose Series (Moderna) 09/14/2020 COVID-19 mRNA, LNP-s, No Pre serve, 2-Dose Series (Pfizer) 11/15/2020 Hepatitis B, 20+ yrs 07/31/2010 PPD 03/18/2016, 4,06/12/2013,05/29,10/04/2012,04/21/2011,04/21/2010 ,03/26/2009,05/27/2007,06/08/2006 Pneumococcal Conjugate Vacc, 13 Valent (Prevnar) 02/08/2020 Pneumococcal Polysaccharide PPV23 (Pneumovax) 12/19/2009 TDAP (age 10 and older)(Boostrix) 02/08/2020 TDAP, Age 7 and older, IM (Adacel) 12/19/2009 documented as of this encounter Social History Tobacco Use Types Packs/Day Years Used Date Smoking Tobacco: Every Day Cigarettes 0.5 20 Smokeless Tobacco: Never Alcohol Use Standard Drinks/Week Comments Yes 0 (1 standard drink = 0.6 oz pur e alcohol) Less than monthly PHQ-2 Answer Date Recorded PHQ Adult Total Score 2 05/04/2024 Hunger Vital Sign Answer Date Recorded Within the past 12 months, y ou worried that your food would run out before you got the money to buy more. Never true 05/04/20 24 Within the past 12 months, t he food you bought just didn't last and you didn't have money to get more. Never true 05/04/2024 Childcare Answer Date Recorded Do you feel overwhelmed with taking care of a child, family member or friend? No 05/04/2024 Does your family need help f inding childcare? (Household - for ages 0-17 years) Not on file 05/04/2024 Clothing Answer Date Recorded Have you been unable to get clothing when it was really needed? No 05/04/2024 Is your family able to get c lothes or diapers when needed? (Household - for ages 0-17 years) Not on file 05/04/2024 Personal Safety Answer Date Recorded Do you feel unsafe or have concerns for your saf ety? No 05/04/2024 Do you have concerns for you r family's safety? (Household - for ages 0-17 years) Not on file 05/04/2024 Utilities Answer Date Recorded Do you have trouble paying y our heating, water, or electric bill? No 05/04/2024 Is your family able to pay t he heat, water, or electric bill? (Household - for ages 0-17 years) Not on file 05/04/2024 Does your family have access to good internet? (Household - for ages 0-17 years) Not on file 05/04/2024 Employment Status Answer Date Recorded Are you unemployed or without regular income? Ye s 05/04/2024 Does the household have a re gular source of income? (Household - for ages 0-17 years) Not on file 05/04/2024 Social Connections Answer Date Recorded How often do you feel lonely or isolated from th ose around you? Never 05/04/2024 Financial Resource Strain Answer Date R ecorded Do you have any trouble payi ng for your medications, or do you think you might in the future? No 05/04/2024 Does your family have troubl e paying for medicine? (Household - for ages 0-17 years) Not on file 05/04/2024 Transportation Needs Answer Date Record ed Do you have trouble getting a ride to medical visits or work? (Adult - for ages 18 years and over) Not on file 05/04/2024 Does your family have a hard time getting a ride to doctors visits? (Household - for ages 0-17 years) Not on file 05/04/2024 Has lack of transportation k ept you from medical appointments, meetings, work, or from getting things needed for daily living? Check all that apply. No 05/04/2024 Do you (or your family) have trouble finding or paying for a ride (transportation)? (Household - for ages 0-17 years) Not on file 05/04/2024 Housing Stability Answer Date Recorded Do you currently live in a s helter or have no steady place to sleep at night? No 05/04/2024 Do you think you are at risk of becoming homeless? (Adult - for ages 18 years and over) Not on file 05/04/2024 Does your family worry about paying for your home or becoming homeless? (Household - for ages 0-17 years) Not on file 0 05/04/2024 Are you homeless or worried that you might be in the future? No 05/04/2024 Are you (or your family) afia eless or worried that you might be in the future? (Household - for ages 0-17 years) Not on file Food Insecurity Answer Date Recorded Do you need food for this week? No 05/04/2024 Are you able to get enough f ood for your family? (Household - for ages 0-17 years) Not on file 05/04/2024 Does your family need food t his week? (Household - for ages 0-17 years) Not on file 05/04/2024 Do you always have enough fo od for your family? (Household - for ages 0-17 years) Not on file 05/04/2024 Food Insecurity Answer Date Recorded Within the past 12 months, y ou worried that your food would run out before you got the money to buy more. Never true 05/04/20 24 Within the past 12 months, t he food you bought just didn't last and you didn't have money to get more. Never true 05/04/2024 Do you need food for this week? No 05/04/2024 Comments No Sex and Gender Information Value Date Recorded Sex Assigned at Female 12/09/2018 3:23 PM EDT Legal Sex Female 6:21 AM EST Gender Identity Female 12/09/2018 3:23 PM EDT Sexual Orientation Straight 12/09/2018 3: 23 PM EDT Occupation Industry Job Start Date Job End Date [employer] Not on file Not on file Not on file documented as of this encounter Functional Status * Are you deaf or do you have serious difficulty hearing? Answer Date of Assessment Author No 10/12/2020 1:01 PM Ilia Bauer RN * Are you blind or do you have serious difficulty seeing, even when wearing glasses? Answer Date of Assessment Author No 10/12/2020 1:01 PM Ilia Bauer RN * Do you have serious difficulty walking or climbing stairs? (5 years old or older) Answer Date of Assessment Author No 10/14/2020 10:49 AM EST Ismael Oglesby LSW * Do you have difficulty dressing or bathing? (5 years old or older) Answer Date of Assessment Author No 10/12/2020 1:01 PM Ilia Bauer RN * Because of a physical, mental, or emotional condition, do you have difficulty doing errands alone such as visiting a doctors office or shopping? (15 years old or older) Answer Date of Assessment Author No 10/12/2020 1:01 PM Ilia Bauer RN documented as of this encounter Mental Status * Because of a physical, mental, or emotional condition, do you have serious difficulty concentrating, remembering, or making decisions? (5 years old or older) Answer Entry Date Author No 10/12/2020 1:01 PM Ilia Bauer RN documented in this encounter Miscellaneous Notes * Telephone Encounter - Solis Serna CRNP - 11/02/2024 1:58 PM EDTSigned Prescriptions: Disp Refills FLUoxetine HCl 20 MG/5ML Oral Solution (LA*1800 mL1 Sig: Take 20 mL by mouth in the morning. Authorizing Provider: SOLIS SERNA Dextromethorphan-buPROPion ER 45-105 MG Or*180 Ta*1 Sig: Take 1 Tablet by mouth in the morning and 1 Tablet before bedtime. Authorizing Provider: SOLIS SERNA * Telephone Encounter - Elizabeth Nguyen LPN - 11/01/2024 12:37 PM EDT Pending Prescriptions: Disp Refills FLUoxetine HCl 20 MG/5ML Oral Solution (LA*600 mL 2 Sig: Take 20 mL by mouth in the morning. Dextromethorphan- buPROPion ER 45-105 MG Or*60 Tab*2 Sig: Take 1 Tablet by mouth in the morning and 1 Tablet before bedtime. documented in this encounter Plan of Treatment Upcoming Encounters Date Type Department Care Team (Late st Contact Info) Description 11/03/2024 11:00 AM EDT Office Visit Orthopaedics [facility] [address] [place] [phone] Anastasiya Fry PA-C [address] [place] [phone] 11/10/2024 12:30 PM EDT Telemedicine Psychiatry, [facility] [address] [place] [address] Solis Serna CRNP [address] [place] [address] 12/13/2024 10:40 AM EDT Office Visit Gastroenterology, [facility] [address] [place] [address] Cheryl Rowley MD [address] [place] [address] Health Maintenance Due Date Last Done Comments DISCUSS TOBACCO CESSATION (REFER TO SMARTSET #3986) 1973 Albumin/Creatinine Ratio 1991 Zoster Vaccines (1 of 2) 1992 HPV/Co-Test 2003 Hepatitis B Vaccine (2 of 3 - 19+ 3-dose series) 08/28/2010 07/31/2010 Mammogram 09/11/2016 09/11/2015 Cervical Cancer Screening 01/28/2018 Pap Smear 01/28/2018 01/28/2015, 03/2015, 12/21/2012, Additional history exists Cologuard 2018 Fecal Occult Blood Test 2018 Sigmoidoscopy 2018 Pneumococcal Vaccine: 50+ Years (3 of 3 - PPSV23, PCV20 or PCV21) 04/04/2020 02/08/2020, 12/19/2009 COVID-19 Vaccine (3 - Mixed Product risk series) 12/13/2020 11/15/2020, 09/14/2020 GFR 01/09/2024 01/08/2023, 01/2022, 09/13/2021, Additional history exists Influenza Vaccine (FLU shot) (#1) 2024 *SPIROMETRY ONCE FOR ASTHMA-ADULT 10/15/2024 Depression Monitoring 05/04/2025 05/04/2024 Diabetes Screening 01/08/2026 01/08/2023, 0 11/26/2021, 09/13/2021, Additional history exists Lipid Panel 05/01/2026 05/01/2021, 11/19/2008 DTap/Tdap Vaccines (3 - Td or Tdap) 02/07/2030 02/08/2020, 12/19/2009 Colonoscopy 07/10/2034 07/10/2024, 12/22, 01/11/2024, Additional history exists Colorectal Cancer Screening 07/10/2034 HPV (Gardasil) Vaccine Aged Out No lo nger eligible based on patient's age to complete this topic MENINGOCOCCAL (MENACTRA/MENVEO) Aged Out No longer eligible based on patient's age to complete this topic Meningitis B Vaccine (Bexsero/Trumemba) Aged Out No longer eligible based on patient's age to complete this topic documented as of this encounter Medical Devices Not on filedocumented as of this encounter Advance Directives * Full Code (Latest Code Status on File) Date Activated Date Inactivated Comments 10/13/2020 12:38 PM 10/20/2020 5:31 PM This order reflects the patients wishes and were consensually agreed upon. Question Answer Comments Discussion of Advance Directives occurred with: Not Discussed Does the patient have a Living Will? No Does the patient have Health Care Power of Attor marlyn? No * Full Code Date Activated Date Inactivated Comments 10/11/2020 11:06 PM 10/13/2020 12:38 PM This order reflects the patients wishes and were consensually agreed upon. * Full Code Date Activated Date Inactivated Comments 12/31/2009 12:06 AM 01/04/2010 6:19 PM This order reflects the patients wishes and were consensually agreed upon. Question Answer Comments Discussion of Advance Directives occurred with: Patient Does the patient have a Living Will? No Does the patient have Health Care Power of Attor marlyn? No Care Teams Ac[facility]one Recovery Worker Relationship Specialty Start Date End Date Giovany Correa DO [address] [place] [address] PCP - General Family Medicine 10/30/20 documented as of this encounter
--- OUTSIDE RECORDS SUMMARY | 2024-11-22 11:02 | External Medical Summary | Summary of Care ---
Author Name Unknown Organization [facility] Address [address] [facility] [place] [address] Phone [phone] Care Team Providers Care Negative Turner Apprentice Name Role Phone Geoffrey Correajoseph Choudhurysilas Primary Care Provider Reason for Visit * Reason Onset Date Comments Appointment Canceled 11/10/2024 Encounter Details Date Type Department Care Team (Late st Contact Info) Description 11/10/2024 Telephone Marla Freedman Montero [address] [place] [address] Lester Serna CRNP [address] [place] [address] Appointment Canceled Allergies No known active allergiesdocumented as of this encounter (statuses as of 11/10/2024) Medications OSCAL 500/200 D-3 500-200 MG-UNIT PO TABSIndications:C rohn's disease of colon (HCC) one tab once a day 30 5 9 Active Additional Information Patient taking differently: (No route reported), HS, Reported on 07/02/2022 FISH OIL 1000 MG PO CAPS 1 tab by mouth daily in the evening 0 0 Active NASAL SALINE 0.65 % NA SOLNIndications:C hronic rhinitis,Other chronic sinusitis flush each nostril morning and night and every 2-4 hrs as needed for nasal dryness or congestion 1 Bottle 4 0 Active MUCINEX D 120-1200 MG PO [id number]:C hronic rhinitis,Other chronic sinusitis,Hypertr ophy of nasal turbinates,Dysfun ction of eustachian tube 1 TABLET EVERY 12 HOURS NEEDED FOR NASAL CONGESTION 30 Tab 3 0 Active Additional Information Patient not taking.Reported on 06/30/2022 Albuterol Sulfate HFA 108 (90 Base) MCG/ACT Inhalation Aerosol SolutionIndicatio ns:Acute maxillary sinusitis, recurrence not specified,Bronchi tis, complicated inhale 2 puffs by mouth and INTO THE LUNGS four times a day 18 g 3 1 Active Fluticasone Propionate 50 MCG/ACT Nasal Suspension (Flonase)Indicati ons:Acute sinusitis instill 2 sprays into each nostril once daily 48 g 3 1 Active Multi-Day Oral Tablet Take 1 Tablet by mouth every evening. Active Melatonin 5 MG Oral Capsule Take 1 Capsule by mouth at bedtime. Active Azelastine HCl 137 MCG/SPRAY Nasal SolutionIndicatio ns:Chronic rhinitis instill 2 sprays into each nostril twice a day 30 mL 5 2 Active Potassium Chloride ER 10 MEQ Oral Tablet Extended Release Take 2 Tablets by mouth in the morning. 3 Active oxyCODONE HCl 5 MG Oral Capsule (Oxy IR) Take 1 Capsule by mouth every 4 hours as needed. Active Diclofenac Sodium 1 % External Gel (Voltaren)Indicat ions:Elbow pain, chronic, right apply 4 grams to affected area three times a day NEEDED FOR PAIN APPLY TO ELBOW 350 g 3 3 Active Additional Information Patient not taking.Reported on 05/23/2024 Stelara 90 MG/ML Subcutaneous Solution Prefilled Syringe (Ustekinumab)Jayshree cations:Crohn's disease of colon without complication (HCC) Inject 90 mg under the skin every 4 weeks. 1 mL 5 10/10/2024 8:55 AM EST 4 Active Ustekinumab 90 MG/ML Subcutaneous Solution Prefilled Syringe (Stelera) Inject 90 mg under the skin once every 4 weeks 1 mL 5 Active Pantoprazole Sodium 40 MG Oral Tablet Delayed Release (Protonix) Take 1 Tablet by mouth in the morning. 90 Tablet 3 5 Active Potassium Chloride ER 10 MEQ Oral Capsule Extended Release Take 1 Capsule by mouth in the morning. 90 Capsule 10/31/2024 1:20 PM EDT 5 Active Gabapentin 300 MG Oral Capsule (Neurontin) Take 1 Capsule by mouth 2 times a day in the morning and at noon. 60 Capsule 1 11/02/2024 4:07 PM EDT 5 Active Gabapentin 600 MG Oral Tablet (Neurontin) Take 1 Tablet by mouth at bedtime. 30 Tablet 1 11/02/2024 4:07 PM EDT 5 Active LORazepam 0.5 MG Oral Tablet (Ativan)Indicatio ns:Anxiety TAKE 1 TABLET BY MOUTH IN THE MORNING, 1 tablet AT NOON AND 1 tablet BEFORE BEDTIME 90 Tablet 11/06/2024 8:34 AM EDT 5 Active Amphetamine-Dextr oamphetamine 5 MG Oral Tablet (Adderall) Take 1 Tablet by mouth 2 times a day in the morning and at noon. 60 Tablet 11/06/2024 10:44 AM EDT 5 Active Diphenoxylate-Atr opine 2.5-0.025 MG Oral Tablet (Lomotil)Indicati ons:Crohn's disease of both small and large intestine without complications (HCC) Take 1 Tablet by mouth daily as needed for Diarrhea. 30 Tablet 5 11/03/2024 12:50 PM EDT 5 Active FLUoxetine HCl 20 MG/5ML Oral Solution (PROzac) Take 20 mL by mouth in the morning. 1800 mL 1 5 Active Dextromethorphan- buPROPion ER 45-105 MG Oral Tablet Extended Release (Auvelity) Take 1 Tablet by mouth in the morning and 1 Tablet before bedtime. 180 Tablet 1 11/04/2024 12:38 PM EDT 5 Active Hospital, Clinic, or Other Facility Administered Medication Ordered Dose Route Frequency Start Date End Date Status albuterol sulfate (PROVENTIL) (2.5 MG/3ML) 0.083% inhalation solution 2.5 mgIndications:ESCOBEDO (dyspnea on exertion) 2.5 mg NEBULIZER PRN 11/15/2019 Act arn documented as of this encounter (statuses as of 11/10/2024) Active Problems Problem Noted Date Diagnosed Date [...] as of this encounter (statuses as of 11/10/2024) Resolved Problems Problem Noted Date Diagnosed Date [...] as of this encounter (statuses as of 11/10/2024) Immunizations Name Administration Dates Next Due COVID-19 [...] Telephone Encounter - Jaimie Acevedo OSA - 11/10/2024 10:21 AM EDT Not able to leave vm sent cancellation for 11/10/24 [facility] documented in this encounter Plan of Treatment Upcoming Encounters Date Type Department Care Team (Late st Contact Info) Description 12/13/2024 10:40 AM EDT Office Visit Gastroenterology, [facility] [address] [place] [phone] Cheryl Rowley MD [address] [place] [address] 12/15/2024 4:00 PM EDT Telemedicine Orthopaedics [facility] [address] [place] [address] SharerAnastasiya PA-C [address] [place] [phone] Health Maintenance Due Date Last Done Comments DISCUSS TOBACCO CESSATION (REFER TO SMARTSET #7065) 1973 Albumin/Creatinine Ratio 1991 Zoster Vaccines (1 [...] series) 12/13/2020 11/15/2020, 09/14/2020 GFR 01/09/2024 01/08/2023, 04/0 01/2022, 09/13/2021, Additional history exists Influenza Vaccine [...] Power of Attor marlyn? No Care Teams Negative Turner Apprentice Relationship Specialty Start Date End Date Giovany Correa DO [address] [place] [address] PCP - General Family Medicine 10/30/20 documented as of this encounter
--- OUTSIDE RECORDS SUMMARY | 2024-11-22 11:02 | External Medical Summary | Summary of Care ---
Author Name Unknown Organization [facility] Address [address] [facility] [place] [address] Phone [phone] Care Team Providers Care Sales Technician Home Theater Name Role Phone Giovany Correa DO Primary Care Provider Reason for Referral * Evaluate & Treat - Unlimited Visits (Within 30 days (routine)) - Authorized Specialty Diagnoses / Procedures Referred By Coco newman Referred To Contact Physical Therapy / Physical Medicine And Rehab Diagnoses Closed avulsion fracture of lateral malleolus of left fibula with routine healing, subsequent encounter Sprain of left ankle, unspecified ligament, initial encounter Anastasiya Fry PA-C [address] [place] [address] Phone: tel: fax: Referral ID Status Reason Start Date Expiration Date Visits Requested Visits Authorized [id number] Authorized Specialty Services Required 11/03/2024 [id number] Question Answer Referral Priority Within 30 days (routine) Where should this appointment be scheduled? External Comments Wean boot Proprioception and lateral ankle strengthening PT 2 x week for 4-6 weeks with HEP Reason for Visit * Reason Comments Follow Up L ankle fx in boot D OI: 10/04/24 slipped on ice Encounter Details Date Type Department Care Team (Late st Contact Info) Description 11/03/2024 11:00 AM EDT Office Visit Orthopaedics [facility] [address] [place] [phone] Sharer, Anastasiya Narayanan PA-C [address] [place] [phone] Closed avulsion fracture of lateral malleolus of left fibula with routine healing, subsequent encounter*; Sprain of left ankle, unspecified ligament, initial encounter Allergies No known active allergiesdocumented as of this encounter (statuses as of 11/03/2024) Medications OSCAL 500/200 D-3 500-200 MG-UNIT PO [...] 0 Active MUCINEX D 120-1200 MG PO [id number]:C hronic rhinitis,Other chronic sinusitis,Hypertr ophy of nasal [...] AND 1 tablet BEFORE BEDTIME 90 Tablet 5 Active Amphetamine-Dextr oamphetamine 5 MG Oral Tablet (Adderall) Take 1 Tablet by mouth 2 times a day in the morning and at noon. 60 Tablet 5 Active Diphenoxylate-Atr opine 2.5-0.025 MG Oral [...] 1 Tablet before bedtime. 180 Tablet 1 5 Active Hospital, Clinic, or Other Facility Administered Medication Ordered Dose Route Frequency Start Date End Date Status albuterol sulfate (PROVENTIL) (2.5 MG/3ML) 0.083% inhalation solution 2.5 mgIndications:ESCOBEDO (dyspnea on exertion) 2.5 mg NEBULIZER PRN 11/15/2019 Act ran documented as of this encounter (statuses as of 11/03/2024) Active Problems Problem Noted Date Diagnosed Date [...] as of this encounter (statuses as of 11/03/2024) Resolved Problems Problem Noted Date Diagnosed Date [...] as of this encounter (statuses as of 11/03/2024) Immunizations Name Administration Dates Next Due COVID-19 [...] s 05/04/2024 Does the household have a healthsource [place] source of income? (Household - for ages [...] of Assessment Author No 10/14/2020 10:49 AM Ismael Dupont LSW * Do you have difficulty dressing [...] Ilia Bauer RN documented in this encounter Progress Notes * Sharer, Anastasiya Narayanan PA-C - 11/03/2024 11:52 AM EDT Keiry Cruz is a 49 year old female who presents for consultation to [facility] for left ankle injury/pain. Consult requested by Self . Keiry Cruz is here unaccompanied History: Keiry Cruz presents for left ankle sprain with lateral malleolus fracture. Date of injury was10/04/2024. She has been immobilized in a walking boot. Patient wears the boot when she is ambulatory. She has been removing the boot when seated. Reports no significant improvement. She continues tohave left ankle pain and swelling. Review of systems: All others negative except [...] four times a day 18 g 3 Fluticasone Propionate 50 MCG/ACT Nasal Suspension (Flonase) [...] by mouth every 4 hours as needed. (Patient not taking: Reported on 01/11/2024) Diclofenac Sodium 1 % External Gel (Voltaren) apply 4 grams to affected area three times a day NEEDED FOR PAIN APPLY TO ELBOW (Patient not taking: Reported on 05/23/2024) 350 g 3 Stelara 90 MG/ML Subcutaneous Solution Prefilled Syringe (Ustekinumab) Inject 90 mg under the skin every 4 weeks. 1 mL 5 Ustekinumab 90 MG/ML Subcutaneous Solution Prefilled Syringe (Stelera) Inject 90 mg under the skin once every 4 weeks 1 mL 0 Pantoprazole Sodium 40 MG Oral Tablet Delayed Release (Protonix) Take 1 Tablet by mouth in the morning. 90 Tablet 3 Potassium Chloride ER 10 MEQ Oral Capsule Extended Release Take 1 Capsule by mouth in the morning. 90 Capsule 0 Gabapentin 300 MG Oral Capsule (Neurontin) Take 1 Capsule by mouth 2 times a day in the morning andat noon. 60 Capsule 1 Gabapentin 600 MG Oral Tablet (Neurontin) Take 1 Tablet by mouth at bedtime. 30 Tablet 1 LORazepam 0.5 MG Oral Tablet (Ativan) TAKE 1 TABLET BY MOUTH IN THE MORNING, 1 tablet AT NOON AND 1tablet BEFORE BEDTIME 90 Tablet 0 Amphetamine-Dextroamphetamine 5 MG Oral Tablet (Adderall) Take 1 Tablet by mouth 2 times a day in the morning and at noon. 60 Tablet 0 Diphenoxylate-Atropine 2.5-0.025 MG Oral Tablet (Lomotil) Take 1 Tablet by mouth daily as needed for Diarrhea. 30 Tablet 5 FLUoxetine HCl 20 MG/5ML Oral Solution (PROzac) Take 20 mL by mouth in the morning. 1800 mL 1 Dextromethorphan-buPROPion ER 45-105 MG Oral Tablet Extended Release (Auvelity) Take 1 Tablet by mouth in the morning and 1 Tablet before bedtime. 180 Tablet 1 Current Facility-Administered Medications Medication Dose Route Frequency Provider Last Rate Last Admin albuterol sulfate (PROVENTIL) (2.5 MG/3ML) 0.083% inhalation solution 2.5 mg 2.5 mg Nebulizer PRN Micah Rodriguez MD Past Medical History: Diagnosis Date Chronic rhinitis Crohn's disease (HCC) 1993 Crohn's disease of colon without complication (HCC) 03/24/2021 Depression with anxiety Erythema nodosum has had this in the past associated with her crohn's GERD (gastroesophageal reflux disease) IBS (irritable bowel syndrome) Tobacco use disorder Patient Active Problem List Diagnosis Tobacco use disorder Vitamin D deficiency Controlled substance agreement signed Depression with anxiety Crohn's disease of colon without complication (HCC) Restless legs syndrome (RLS) Hypokalemia Immunodeficiency due to drugs (HCC) Other instability, right shoulder Hypertensive urgency Crohn's disease of both small and large intestine without complications (HCC) Essential (primary) hypertension Uncomplicated asthma Past Surgical History: Procedure Laterality Date ABDOMEN [...] performed by Cheryl Rowley MD at ENDOSCOPY [facility] COLONOSCOPY, DIAGNOSTIC (RECTUM) 01/23/2013 COLONOSCOPY FLEXIBLE PROXIMAL DIAGNOSTIC performed by Cheryl Rowley MD at ENDOSCOPY [facility] COLONOSCOPY, DIAGNOSTIC (RECTUM) 02/02/2013 COLONOSCOPY FLEXIBLE PROXIMAL DIAGNOSTIC performed by Cheryl Rowley MD at ENDOSCOPY [facility] COLONOSCOPY, DIAGNOSTIC (RECTUM) 07/28/2017 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/COLONOSCOPY FLEXIBLE PROXIMAL DIAGNOSTIC performed by Cheryl Rowley MD at ENDOSCOPY [facility] COLONOSCOPY, DIAGNOSTIC (RECTUM) 07/24/2019 Mild anal stenosis/COLONOSCOPY FLEXIBLE PROXIMAL DIAGNOSTIC performed by Cheryl Rowley MD at ENDOSCOPY [facility] COLONOSCOPY, DIAGNOSTIC (RECTUM) 08/20/2020 Anastamotic stricture / INPT [facility] COLONOSCOPY, DIAGNOSTIC (RECTUM) 07/22/2021 normal bx / COLONOSCOPY FLEXIBLE PROXIMAL DIAGNOSTIC performed by Cheryl Rowley MD at ENDOSCOPY [facility] COLONOSCOPY, DIAGNOSTIC (RECTUM) 07/03/2022 no evidence of active IBD, Crohns appears in remission / biopsies no specific pathologic change / follow up in clinic / COLONOSCOPY FLEXIBLE PROXIMAL DIAGNOSTIC performed by Charlie Ma ENDOSCOPY [facility] COLONOSCOPY, DIAGNOSTIC (RECTUM) 01/11/2024 end-to-side ileo-colonic anastomosis, inflammation, ulceration and stenosis/skip ulcers/hemorrhoids/biopsies show mild to moderate inflammation/COLONOSCOPY FLEXIBLE PROXIMAL DIAGNOSTIC performed by Kamran Whelan MD at ENDOSCOPY [facility] CYSTOSCOPY/INSERTION OF STENT 01/01/2010 CYSTOURETHROSCOPY WITH INSERTION URETERAL STENT performed by ZEV MAZA at [facility] EGD, FLEXIBLE, DIAGNOSTIC 09/08/2012 UPPER GI ENDOSCOPY DIAGNOSTIC performed by Cheryl Rowley MD at ENDOSCOPY [facility] INFERIOR TURBINATES ABLATION, INTRAMURAL Right 12/13/2007 CAUTERIZE MUSOSA OF INFERIOR TURBINATES INTRAMURAL performed by Lin Zabala MD at OR [facility] INFERIOR TURBINATES ABLATION, SUPERFICIAL Left 12/13/2007 CAUTERIZE MUSOSA OF INFERIOR TURBINATES SUPERFICIAL performed by Lin Zabala MD at [facility] LAPAROSCOPIC COLECTOMY PARTIAL WITH ANASTOMOSIS 01/01/2010 LAPAROSCOPIC COLECTOMY PARTIAL WITH ANASTOMOSIS performed by HALEY VAZQUEZ at [facility] LAPAROSCOPY DIAGNOSTIC N/A 10/13/2020 LAPAROSCOPY DIAGNOSTIC performed by Betsy Wallace MD at [facility] [employer] 52MG 10/2008 NASAL SEPTUM CARTILAGE [...] Occupational History Occupation: [employer] Employer: [employer] Tobacco Use Smoking status: Every Day Current packs/day: 0.50 Average packs/day: 0.5 packs/day for 20.0 years (10.0 ttl pk-yrs) Types: Cigarettes Smokeless tobacco: Never Vaping Use Vaping status: Never Used Substance and Sexual Activity Alcohol use: Yes [...] Entered by: Alexx Goodwin MD 07/31/2010 Social Needs Financial Resource Strain: Low Risk (05/04/2024) Financial Resource Strain Do you have any trouble paying for your medications, or do you think you might in the future? (Adult - for ages 18 years and over): No Does your family have trouble paying for medicine? (Household - for ages 0-17 years): Not on file Food Insecurity: No Food Insecurity (05/04/2024) Food Insecurity Worried About Running Out of Food in the Last Year: Never true Ran Out of Food in the Last Year: Never true Do you need food for this week? (Adult - for ages 18 years and over): No Transportation Needs: No Transportation Needs (05/04/2024) Transportation Needs Do you have trouble getting a ride to medical visits or work? (Adult - for ages 18 years and over):Not on file Does your family have a hard time getting a ride to doctors visits? (Household - for ages 0-17 years): Not on file Has lack of transportation kept you from medical appointments, meetings, work, or from getting things needed for daily living? Check all that apply. (Adult - for ages 18 years and over): No Do you (or your family) have trouble finding or paying for a ride (transportation)? (Household - for ages 0-17 years): Not on file Social Connections: Socially Integrated (05/04/2024) Social Connections How often do you feel lonely or isolated from those around you? (Adult - for ages 18 years and over): Never Housing Stability: Low Risk (05/04/2024) Housing Stability Do you currently live in a long term or have no steady place to sleep at night? (Adult - for ages 18 years and over): No Do you think you are at risk of becoming homeless? (Adult - for ages 18 years and over): Not on file Does your family worry about paying for your home or becoming homeless? (Household - for ages 0-17 years): Not on file Are you homeless or worried that you might be in the future? (Adult - for ages 18 years and over): No Are you (or your family) homeless or worried that you might be in the future? (Household - for ages0-17 years): Not on file Family History Problem Relation Name Age of Onset Heart Disorder Mother Arthritis Mother Gastro-intestinal disorder Mother diverticulitis Allergies Father Quentin Cruz Asthma Father Quentin Cruz Transient ischemic attack Father Quentin Cruz Esophageal cancer Father Quentin Cruz Diabetes Sister 45 Arthritis Sister Crohn's disease Sister 46 Gastro-intestinal disorder Grandmother (Maternal) diverticulitis- Cancer Grandfather (Paternal) unknown primary Family History; none relevant to today's HPI Objective: Physical Exam There were no vitals filed for this visit. Estimated body mass index is 25.09 kg/m as calculated from the following: Height as of 01/11/24: 1.727 m (5' 7.99"). Weight as of 10/12/24: 74.8 kg (165 lb). General: generally well-nourished and in no acute distress HEENT: normocephalic, atraumatic, sclera anicteric. Psych: mood and affect normal , cooperative Resp: equal chest rise, non-tachypneic, non-labored breathing Neurovascular status/sensation: sensation intact in the common peroneal, tibial and saphenous nervedistributions. Toes well perfused with normal capillary refill Ankle Exam Inspection: Mild ankle swelling. No ecchymosis. Skin intact. No color changes. Palpation: Diffusely tender to palpation throughout the ankle. Tender with even light touch along the medial and lateral ankle as well as the lateral foot. ROM: Dorsiflexion (normal 20): L - 20, R - 20 Plantarflexion (normal 50): L - 50, R - 50 Inversion (normal 35): L - 25, R - 35 Eversion (normal 25): L - 15, R - 25 Strength: Dorsiflexion: L - 4/5, R - 5/5 Plantarflexion: L - 4/5, R - 5/5 Inversion: L - 4/5, R - 5/5 Eversion: L - 4/5, R - 5/5 Knee and pelvis exam: Normal ROM and No Deformity bilateral Radiology (I have personally reviewed the following films): X-rays of the left ankle were obtained today and reviewed with patient. Those x-rays show healing lateral malleolus avulsion fracture. Chronic appearing avulsion of the medial malleolus with calcifications. There was no widening of the medial joint space. No widening of syndesmosis. Mortise is intact. Assessment and Plan: Closed avulsion fracture of lateral malleolus of left fibula with routine healing, subsequent encounter (Primary) - XR ANKLE 3 OR MORE VIEWS Recommend she wean the ankle boot over the next 1-2 weeks. Advised course of physical therapy. Recommend telephone follow-up visit in 6 weeks. Anastasiya Fry PA-C [facility] [address] [place] [address] documented in this encounter Nursing Notes * Tammy Guidry CMA - 11/03/2024 11:43 AM EDT Date of Initial Injury: 10/04/24 Extremity: L ankle Progress Percentage: 30% Form of immobilization: high tide boot How often used: constant documented in this encounter Plan of Treatment Upcoming Encounters Date Type Department Care Team (Late st Contact Info) Description 11/10/2024 12:30 PM EDT Telemedicine Psychiatry, [facility] [address] [facility] [place] [address] Lester Serna CRNP [address] [facility] [place] [address] 12/13/2024 10:40 AM EDT Office Visit Gastroenterology, [facility] [address] [facility] [place] [address] Cheryl Rowley MD [address] [facility] [place] [address] 12/15/2024 4:00 PM EDT Telemedicine Orthopaedics [facility] [address] [facility] [place] [address] Sharer, Anastasiya Narayanan PA-C [address] [place] [phone] Scheduled Referrals Name Type Priority Associated Diagnoses Orde r Schedule PHYSICAL THERAPY REFERRAL OP Referral Within 30 days (routine) Closed avulsion fracture of lateral malleolus of left fibula with routine healing, subsequent encounter Sprain of left ankle, unspecified ligament, initial encounter Ordered: 11/03/2024 Health Maintenance Due Date Last Done Comments DISCUSS TOBACCO CESSATION (REFER TO SMARTSET #4815) 1973 Albumin/Creatinine Ratio 1991 Zoster Vaccines (1 [...] Not on filedocumented as of this encounter Procedures Procedure Name Priority Date/Time Associated Diagnosis Comments XR ANKLE 3 OR MORE VIEWS Routine 11/03/2024 12:15 PM EDT Closed avulsion fracture of lateral malleolus of left fibula with routine healing, subsequent encounter documented in this encounter Results * XR ANKLE 3 OR MORE VIEWS (11/03/2024 12:15 PM EDT) Anatomical Region Laterality Modality Ankle, Lower Extremity Computed Radiography 11/03/2024 5:18 PM EDT Narrative 11/03/2024 5:16 PM EDT EXAM: LT XR ANKLE 3 OR MORE VIEWS HISTORY: re eval COMPARISON:-10/12/2024 FINDINGS / IMPRESSION: Healing lateral malleolar fracture. Chronic fracture of the medial malleolus. Ankle mortise intact Procedure Note Jonatan Malloy MD - 11/03/2024 EXAM: LT XR ANKLE 3 OR MORE VIEWS HISTORY: re eval COMPARISON:-10/12/2024 FINDINGS / IMPRESSION: Healing lateral malleolar fracture. Chronic fracture of the medialmalleolus. Ankle mortise intact Anastasiya Fry PA-C RADIOLOGY (RAD GENERAL) F inal Result documented in this encounter Visit Diagnoses Diagnosis Closed avulsion fracture of lateral malleolus of left fibula with routine healing, subsequent encounter- Primary Sprain of left ankle, unspecified ligament, initial encounter documented in this encounter Advance Directives * Full Code [...] Power of Attor marlyn? No Care Teams Sales Technician Home Theater Relationship Specialty Start Date End Date Giovany Correa DO [address] [place] [phone] PCP - General Family Medicine 10/30/20 documented as of this encounter
--- OUTSIDE RECORDS SUMMARY | 2024-11-22 11:03 | External Medical Summary | Summary of Care ---
Author Name Unknown Organization [facility] Address [address] [facility] [place] [address] Phone [phone] Care Team Providers Care Care Giver Name Role Phone Howie Correa DO Primary Care Provider Reason for Visit * Reason Comments Medication Refill Encounter Details Date Type Department Care Team (Late st Contact Info) Description 10/31/2024 Refill [facility] Practice [facility] [address] [place] [address] Howie Correa DO [address] [place] [address] Anxiety Allergies No known active allergiesdocumented as [...] 10 Active MUCINEX D 120-1200 MG PO [id number]:C hronic rhinitis,Other chronic sinusitis,Hypertr ophy of nasal [...] 5 8:55 AM EST 05/05/20 24 Active FLUoxetine HCl 20 MG/5ML Oral Solution (PROzac) Take 20 mL by mouth in the morning. 600 mL 2 09/01/19 25 Active Dextromethorphan- buPROPion ER 45-105 MG Oral Tablet Extended Release (Auvelity) Take 1 Tablet by mouth in the morning and 1 Tablet before bedtime. 60 Tablet 2 09/15/19 25 Active Amphetamine-Dextr oamphetamine 5 MG Oral Tablet (Adderall) Take 1 Tablet by mouth 2 times a day in the morning and at noon. 60 Tablet 5 1:22 PM EST 10/05/19 25 Active Ustekinumab 90 MG/ML Subcutaneous Solution Prefilled Syringe ([employer]) Inject 90 mg under the skin once [...] morning and at noon. 60 Capsule 1 11/01/19 25 Active Gabapentin 600 MG Oral Tablet (Neurontin) Take 1 Tablet by mouth at bedtime. 30 Tablet 1 11/01/19 25 Active LORazepam 0.5 MG Oral Tablet (Ativan)Indicatio ns:Anxiety TAKE 1 TABLET BY MOUTH IN THE MORNING, 1 tablet AT NOON AND 1 tablet BEFORE BEDTIME 90 Tablet 11/03/19 25 Active Diphenoxylate-Atr opine 2.5-0.025 MG Oral Tablet (Lomotil)Indicati ons:Crohn's disease of both small and large intestine without complications (HCC) Take 1 Tablet by mouth daily as needed for Diarrhea. 30 Tablet 5 11/02/19 25 Active LORazepam 0.5 MG Oral Tablet (Ativan)Indicatio ns:Anxiety TAKE 1 TABLET BY MOUTH IN THE MORNING, 1 tablet AT NOON AND 1 tablet BEFORE BEDTIME 90 Tablet 5 7:43 AM EST 10/09/19 25 025 Discontin ued(Refil l) Hospital, Clinic, [...] Telephone Encounter - Howie Correa DO - 11/02/2024 9:46 AM EDT Signed Prescriptions: Disp Refills LORazepam 0.5 MG Oral Tablet (Ativan) 90 Tab*0 Sig: TAKE 1 TABLET BY MOUTH IN THE MORNING, 1 tablet AT NOON AND 1 tablet BEFORE BEDTIME Authorizing Provider: HOWIE CORREA Refused Prescriptions: Disp Refills Potassium Chloride ER 10 MEQ Oral Capsule *90 Cap*0 Sig: Take 1 Capsule by mouth in the morning. Refused By: CHANCE PERRIN Reason for Refusal: Duplicate Request * Telephone Encounter - Chance Perrin [facility] - 11/02/2024 8:48 AM EDTPending Prescriptions: Disp Refills LORazepam 0.5 MG Oral Tablet (Ativan) 90 Tab*0 Sig: TAKE 1 TABLET BY MOUTH IN THE MORNING, 1 tablet AT NOON AND 1 tablet BEFORE BEDTIME Refused Prescriptions: Disp Refills Potassium Chloride ER 10 MEQ Oral Capsule *90 Cap*0 Sig: Take 1 Capsule by mouth in the morning. Refused By: CHANCE PERRIN Reas on for Refusal: Duplicate Request * Telephone Encounter - Chance Perrin [facility] - 11/02/2024 8:48 AM EDT I have reviewed the patients controlled substance dispensing history in the Prescription Drug Monitoring Program in compliance with the [facility] regulations before prescribing a controlled substance. PDMP checked on 11/02/2024. Pending Prescriptions: Disp Refills LORazepam 0.5 MG Oral Tablet (Ativan) 90 Tab*0 Sig: TAKE 1 TABLET BY MOUTH IN THE MORNING, 1 tablet AT NOON AND 1 tablet BEFORE BEDTIME Refused Prescriptions: Disp Refills Potassium Chloride ER 10 MEQ Oral Capsule *90 Cap*0 Sig: Take 1 Capsule by mouth in the morning. Refused By: CHANCE PERRIN Reason for Refusal: Duplicate Request Last Visit: 10/12/2024 (in office), 08/03/2023 (telemedicine) Next Visit: Visit date not found Date medication was last filled: 10/11/24 Date medication is due for refill: 11/09/24 (uses mail order) Pharmacy: [facility] Is this request for a controlled substance? [...] Results Review. Please approve if appropriate. Thanks, Chance Perrin Clinical Pharmacist Centralized Clinical Pharmacy Services ([facility]PS) [phone] 11/02/2024, 8:48 AM documented in this encounter Plan of Treatment Upcoming Encounters Date Type Department Care Team (Late st Contact Info) Description 11/02/2024 2:00 PM EDT Office Visit Orthopaedics [facility] [address] [place] [phone] SharerAnastasiya PA-C [address] [place] [phone] 11/10/2024 12:30 PM EDT Telemedicine Psychiatry, [facility] [address] [place] [address] Lester Serna CRNP [address] [place] [address] 12/13/2024 10:40 AM EDT Office Visit Gastroenterology, Health system [address] [place] [address] Cheryl Rowley MD [address] [place] [address] Health Maintenance Due Date Last Done Comments DISCUSS TOBACCO CESSATION (REFER TO SMARTSET #5617) 1973 Albumin/Creatinine Ratio 1991 Zoster Vaccines (1 [...] Visit Diagnoses Diagnosis Anxiety Anxiety state, unspecified Closed avulsion fracture of lateral malleolus of left fibula with routine healing, subsequent encounter- Primary documented in this encounter Advance Directives * [...] Power of Attor marlyn? No Care Teams Care Giver Relationship Specialty Start Date End Date Howie Correa DO [address] [place] [address] PCP - General Family Medicine 10/30/20 documented as of this encounter
--- OUTSIDE RECORDS SUMMARY | 2024-11-22 11:03 | External Medical Summary | Summary of Care ---
Author Name Unknown Organization [facility] Address [address] [facility] [place] [address] Phone [phone] Care Team Providers Care Case Investigator Name Role Phone Giovany Correa Primary Care Provider Reason for Visit * Reason Onset Date Comments Medication Refill 10/31/2024 Encounter Details Date Type Department Care Team (Late st Contact Info) Description 10/31/2024 Refill Gastroenterology, [facility] [address] [facility] [place] [address] Cheryl Rowley MD [address] [facility] [place] [address] Crohn's disease of both small and large intestine without complications (HCC)* Allergies No known active allergiesdocumented as of this encounter (statuses as of 11/01/2024) Medications OSCAL 500/200 D-3 500-200 MG-UNIT PO [...] 10 Active MUCINEX D 120-1200 MG PO [id number]:C hronic rhinitis,Other chronic sinusitis,Hypertr ophy of nasal [...] bedtime. 60 Tablet 2 09/15/19 25 Active LORazepam 0.5 MG Oral Tablet (Ativan)Indicatio ns:Anxiety TAKE 1 TABLET BY MOUTH IN THE MORNING, 1 tablet AT NOON AND 1 tablet BEFORE BEDTIME 90 Tablet 5 7:43 AM EST 10/09/19 25 Active Amphetamine-Dextr oamphetamine 5 MG Oral Tablet (Adderall) Take 1 Tablet by mouth 2 times a day in the morning and at noon. 60 Tablet 5 1:22 PM EST 10/05/19 25 Active Ustekinumab 90 MG/ML Subcutaneous Solution Prefilled Syringe ([employer]) Inject 90 mg under the skin once [...] bedtime. 30 Tablet 1 11/01/19 25 Active Diphenoxylate-Atr opine 2.5-0.025 MG Oral Tablet (Lomotil)Indicati ons:Crohn's disease of both small and large intestine without complications (HCC) Take 1 Tablet by mouth daily as needed for Diarrhea. 30 Tablet 5 11/02/19 25 Active Diphenoxylate-Atr opine 2.5-0.025 MG Oral Tablet (Lomotil) Take 1 Tablet by mouth daily as needed for Diarrhea. 30 Tablet 5 10/26/19 24 025 Discontin ued(Refil l) Hospital, Clinic, or Other Facility Administered Medication Ordered Dose Route Frequency Start Date End Date Status albuterol sulfate (PROVENTIL) (2.5 MG/3ML) 0.083% inhalation solution 2.5 mgIndications:ESCOBEDO (dyspnea on exertion) 2.5 mg NEBULIZER PRN 11/15/2019 Act ran documented as of this encounter (statuses as of 11/01/2024) Active Problems Problem Noted Date Diagnosed Date [...] as of this encounter (statuses as of 11/01/2024) Resolved Problems Problem Noted Date Diagnosed Date [...] as of this encounter (statuses as of 11/01/2024) Immunizations Name Administration Dates Next Due COVID-19 [...] encounter Miscellaneous Notes * Telephone Encounter - Dorita Coughlin DO - 11/01/2024 12:20 PM EDT Signed Prescriptions: Disp Refills Diphenoxylate-Atropine 2.5-0.025 MG Oral T*30 Tab*5 Sig: Take 1 Tablet by mouth daily as needed for Diarrhea. Authorizing Provider: DORITA COUGHLIN * Telephone Encounter - Ariadne Jernigan LPN - 11/01/2024 10:44 AM EDTPending Prescriptions: Disp Refills Diphenoxylate-Atropine 2.5-0.025 MG Oral T*30 Tab*5 Sig: Take 1 Tablet by mouth daily as needed for Diarrhea. * Telephone Encounter - Ariadne Jernigan LPN - 11/01/2024 10:41 AM EDT Did you pend patient's preferred pharmacy and medication before forwarding?yes Pharmacy: [facility] Pending Prescriptions: Disp Refills Diphenoxylate-Atropine 2.5-0.025 MG Oral *30 Tab*5 Sig: Take 1 Tablet by mouth daily as needed for Diarrhea. Last Visit: 01/12/2023 (in office), 05/20/2023 (telemedicine) Next Visit: 12/13/2024 If no future appointments scheduled, and last appointment is greater than a year ago, please schedule patient for a follow-up appointment Last date the medication was ordered: 10/26/2023 Is this request for a controlled substance?Yes, What was the last refill date 10/26/2023 w/ quantity 30 and dosage 2.5-0.025mg and Urine Drug Screen was completed Urine Drug Screen: Results for orders placed [...] 04:15 PM TSH 1.08 06/13/2019 12:12 PM LDL 105 05/01/2021 01:03 PM LDL 72 11/19/2008 10:10 AM ALT 22 05/13/2022 11:54 AM ALT 19 09/05/2020 04:06 PM HGBA1C 5.4 05/01/2021 01:03 PM documented in this encounter Plan of Treatment Upcoming Encounters Date Type Department Care Team (Late st Contact Info) Description 11/02/2024 2:00 PM EDT Office Visit Orthopaedics [facility] [address] [place] [phone] Anastasiya Fry PA-C [address] [place] [phone] 11/10/2024 12:30 PM EDT Telemedicine Psychiatry, [facility] [address] [place] [address] Lester Serna CRNP [address] [place] [address] 12/13/2024 10:40 AM EDT Office Visit Gastroenterology, [facility] [address] [place] [address] Cheryl Rowley MD [address] [place] [address] Health Maintenance Due Date Last Done Comments DISCUSS TOBACCO CESSATION (REFER TO SMARTSET #3483) 1973 Albumin/Creatinine Ratio 1991 Zoster Vaccines (1 [...] Tdap) 02/07/2030 02/08/2020, 12/19/2009 Colonoscopy 07/10/2034 07/10/2024, 0508/2023, 01/11/2024, Additional history exists Colorectal Cancer Screening [...] encounter Visit Diagnoses Diagnosis Crohn's disease of both small and large intestine without complications (HCC)- Primary documented in this encounter Advance [...] Power of Attor marlyn? No Care Teams Case Investigator Relationship Specialty Start Date End Date Giovany Correa DO [address] [place] [address] PCP - General Family Medicine 10/30/20 documented as of this encounter
--- OUTSIDE RECORDS SUMMARY | 2024-11-22 11:03 | External Medical Summary | Summary of Care ---
Author Name Unknown Organization [facility] Address [address] [facility] [place] [address] Phone [phone] Care Team Providers Care Cnc Grinder Name Role Phone Geoffrey Correavor Eleuterio Primary Care Provider Reason for Visit * Reason Comments Medication Refill Encounter Details Date Type Department Care Team (Late st Contact Info) Description 10/31/2024 Refill Marla Freedman [address] [place] [address] Solis Serna CRNP [address] [place] [address] Allergies No known active allergiesdocumented as of [...] 10 Active MUCINEX D 120-1200 MG PO [id number]:C hronic rhinitis,Other chronic sinusitis,Hypertr ophy of nasal [...] 2 09/15/19 25 025 Discontin ued(Refil l) Amphetamine-Dextr oamphetamine 5 MG Oral Tablet (Adderall) Take 1 Tablet by mouth 2 times a day in the morning and at noon. 60 Tablet 5 1:22 PM EST 10/05/19 25 025 Discontin ued(Refil l) Hospital, Clinic, [...] Encounter - Solis Serna CRNP - 11/02/2024 1:57 PM EDTSigned Prescriptions: Disp Refills Amphetamine-Dextroamphetamine 5 MG Oral Ta*60 Tab*0 Sig: Take 1 Tablet by mouth 2 times a day in the morning and at noon.Authorizing Provider: SOLIS SERNA------- documented in this encounter Plan of Treatment Upcoming Encounters Date Type Department Care Team (Late st Contact Info) Description 11/03/2024 11:00 AM EDT Office Visit Orthopaedics [facility] [address] [place] [phone] SharerAnastasiya PA-C [address] [place] [phone] 11/10/2024 12:30 PM EDT Telemedicine Psychiatry, [facility] [address] [place] [address] Solis Serna CRNP [address] [place] [address] 12/13/2024 10:40 AM EDT Office Visit Gastroenterology, [facility] [address] [place] [address] Cheryl Rowley MD [address] [place] [address] Health Maintenance Due Date Last Done Comments DISCUSS TOBACCO CESSATION (REFER TO SMARTSET #7655) 1973 Albumin/Creatinine Ratio 1991 Zoster Vaccines (1 [...] Tdap) 02/07/2030 02/08/2020, 12/19/2009 Colonoscopy 07/10/2034 07/10/2024, 05/2 08/2023, 01/11/2024, Additional history exists Colorectal Cancer Screening [...] Power of Attor marlyn? No Care Teams Cnc Grinder Relationship Specialty Start Date End Date Giovany Correa DO [address] [place] [address] PCP - General Family Medicine 10/30/20 documented as of this encounter
--- OUTSIDE RECORDS SUMMARY | 2024-11-22 11:04 | External Medical Summary | Summary of Care ---
Author Name Unknown Organization [facility] Address [address] [facility] [place] [address] Phone [phone] Care Team Providers Care Tibco Developer Name Role Phone Howie Correa DO Primary Care Provider Reason for Visit * Reason Onset Date Comments Medication Refill 10/26/2024 Encounter Details Date Type Department Care Team (Late st Contact Info) Description 10/26/2024 Refill Family Practice [facility] [address] [place] [address] Howie Correa DO [address] [place] [address] Allergies No known active allergiesdocumented as of this encounter (statuses as of 10/28/2024) Medications OSCAL 500/200 D-3 500-200 MG-UNIT PO TABSIndications: Crohn's disease of colon (HCC) one tab once a day 30 5 11/09/19 09 Active Additional Information Patient taking differently: (No route reported), HS, Reported on 07/02/2022 FISH OIL 1000 MG PO CAPS 1 tab by mouth daily in the evening 0 11/28/19 10 Active NASAL SALINE 0.65 % NA SOLNIndications: Chronic rhinitis,Other chronic sinusitis flush each nostril morning and night and every 2-4 hrs as needed for nasal dryness or congestion 1 Bottle 4 07/31/20 10 Active MUCINEX D 120-1200 MG PO [id number]: Chronic rhinitis,Other chronic sinusitis,Hypert rophy of nasal turbinates,Dysfu nction of eustachian tube 1 TABLET EVERY 12 HOURS NEEDED FOR NASAL CONGESTION 30 Tab 3 07/31/20 10 Active Additional Information Patient not taking.Reported on 06/30/2022 Albuterol Sulfate HFA 108 (90 Base) MCG/ACT Inhalation Aerosol SolutionIndicati ons:Acute maxillary sinusitis, recurrence not specified,Bronch itis, complicated inhale 2 puffs by mouth and INTO THE LUNGS four times a day 18 g 3 02/04/20 21 Active Fluticasone Propionate 50 MCG/ACT Nasal Suspension (Flonase)Indicat ions:Acute sinusitis instill 2 sprays into each nostril once daily 48 g 3 05/19/20 21 Active Multi-Day Oral Tablet Take 1 Tablet by mouth every evening. Active Melatonin 5 MG Oral Capsule Take 1 Capsule by mouth at bedtime. Active Azelastine HCl 137 MCG/SPRAY Nasal SolutionIndicati ons:Chronic rhinitis instill 2 sprays into each nostril twice a day 30 mL 5 10/20/19 22 Active Potassium Chloride ER 10 MEQ Oral Tablet Extended Release Take 2 Tablets by mouth in the morning. 01/09/20 23 Active oxyCODONE HCl 5 MG Oral Capsule (Oxy IR) Take 1 Capsule by mouth every 4 hours as needed. Active Diclofenac Sodium 1 % External Gel (Voltaren)Indica tions:Elbow pain, chronic, right apply 4 grams to affected area three times a day NEEDED FOR PAIN APPLY TO ELBOW 350 g 3 03/29/20 23 Active Additional Information Patient not taking.Reported on 05/23/2024 Diphenoxylate-At ropine 2.5-0.025 MG Oral Tablet (Lomotil) Take 1 Tablet by mouth daily as needed for Diarrhea. 30 Tablet 5 10/26/19 24 Active Stelara 90 MG/ML Subcutaneous Solution Prefilled Syringe (Ustekinumab)Ind ications:Crohn's disease of colon without complication (HCC) Inject 90 mg under the skin every 4 weeks. 1 mL 5 10/10/2024 8:55 AM EST 05/05/20 24 Active Gabapentin 300 MG Oral Capsule (Neurontin) Take 1 Capsule by mouth 2 times a day in the morning and at noon. 60 Capsule 1 09/01/19 25 Active Gabapentin 600 MG Oral Tablet (Neurontin) Take 1 Tablet by mouth at bedtime. 30 Tablet 1 09/01/19 25 Active FLUoxetine HCl 20 MG/5ML Oral Solution (PROzac) Take 20 mL by mouth in the morning. 600 mL 2 09/01/19 25 Active Dextromethorphan -buPROPion ER 45-105 MG Oral Tablet Extended Release (Auvelity) Take 1 Tablet by mouth in the morning and 1 Tablet before bedtime. 60 Tablet 2 09/15/19 25 Active LORazepam 0.5 MG Oral Tablet (Ativan)Indicati ons:Anxiety TAKE 1 TABLET BY MOUTH IN THE MORNING, 1 tablet AT NOON AND 1 tablet BEFORE BEDTIME 90 Tablet 10/11/2024 7:43 AM EST 10/09/19 25 Active Amphetamine-Dext roamphetamine 5 MG Oral Tablet (Adderall) Take 1 Tablet by mouth 2 times a day in the morning and at noon. 60 Tablet 10/06/2024 1:22 PM EST 10/05/19 25 Active Ustekinumab 90 MG/ML Subcutaneous Solution Prefilled Syringe ([employer]) Inject 90 mg under the skin once every 4 weeks 1 mL 10/27/19 25 Active Pantoprazole Sodium 40 MG Oral Tablet Delayed Release (Protonix) Take 1 Tablet by mouth in the morning. 90 Tablet 3 10/27/19 25 Active Potassium Chloride ER 10 MEQ Oral Capsule Extended Release Take 1 Capsule by mouth in the morning. 90 Capsule 10/28/19 25 Active Potassium Chloride ER 10 MEQ Oral Capsule Extended Release take 1 capsule by mouth once daily 90 Capsule 2 02/20/20 23 025 Discontin ued(Refil l) Hospital, Clinic, or Other Facility Administered Medication Ordered Dose Route Frequency Start Date End Date Status albuterol sulfate (PROVENTIL) (2.5 MG/3ML) 0.083% inhalation solution 2.5 mgIndications:ESCOBEDO (dyspnea on exertion) 2.5 mg NEBULIZER PRN 11/15/2019 Act ran documented as of this encounter (statuses as of 10/28/2024) Active Problems Problem Noted Date Diagnosed Date [...] deficiency 11/21/2014 Overview (05/24/2017): October 2014 = 21. Discuss with PCP. ICD-10 update of inactive term Tobacco use disorder Depression with anxiety documented as of this encounter (statuses as of 10/28/2024) Resolved Problems Problem Noted Date Diagnosed Date [...] as of this encounter (statuses as of 10/28/2024) Immunizations Name Administration Dates Next Due COVID-19 [...] Telephone Encounter - Howie Correa DO - 10/27/2024 6:02 PM EST Signed Prescriptions: Disp Refills Potassium Chloride ER 10 MEQ Oral Capsule *90 Cap*0 Sig: Take 1 Capsule by mouth in the morning. Authorizing Provider: HOWIE CORREA * Telephone Encounter - Angel Kiser [facility] - 10/27/2024 11:12 AM EST Pending Prescriptions: Disp Refills Potassium Chloride ER 10 MEQ Oral Capsule *90 Cap*0 Sig: Take 1 Capsule by mouth in the morning. * Telephone Encounter - Angel Kiser [facility] - 10/27/2024 11:10 AM EST Unable to authorize medication refills for pended medication(s) at this time. Part of the protocol criteria used for refill authorization was not satisfied. Patient needs ROUTINE LABS on file within the last year. Please approve if appropriate. Thanks, Angel Kiser, PharmD Clinical Pharmacist Centralized Clinical Pharmacy Services ([facility]) [phone] 10/27/2024, 11:11 AM documented in this encounter Plan of Treatment Upcoming Encounters Date Type Department Care Team (Late st Contact Info) Description 11/02/2024 2:00 PM EDT Office Visit Orthopaedics [facility] [address] [place] [phone] Anastasiya Fry PA-C [address] [place] [phone] 11/10/2024 12:30 PM EDT Telemedicine Psychiatry, [facility] [address] [place] [address] Lester Serna CRNP [address] [place] [address] 12/13/2024 10:40 AM EDT Office Visit Gastroenterology, [facility] [address] [place] [address] Cheryl Rowley MD [address] [place] [address] Health Maintenance Due Date Last Done Comments DISCUSS TOBACCO CESSATION (REFER TO SMARTSET #4231) 1973 Albumin/Creatinine Ratio 1991 Zoster Vaccines (1 [...] series) 12/13/2020 11/15/2020, 09/14/2020 GFR 01/09/2024 01/08/2023, 0401/2022, 09/13/2021, Additional history exists Influenza Vaccine (FLU [...] Power of Attor marlyn? No Care Teams Tibco Developer Relationship Specialty Start Date End Date Howie Correa DO [address] [place] [address] PCP - General Family Medicine 10/30/20 documented as of this encounter
--- OUTSIDE RECORDS SUMMARY | 2024-11-22 11:04 | External Medical Summary | Summary of Care ---
Author Name Unknown Organization [facility] Address [address] [place] [address] Phone [phone] Care Team Providers Care Processor Solid Propellant Name Role Phone Giovany Correa Primary Care Provider Reason for Visit * Reason Onset Date Comments Medication Refill 10/26/2024 Encounter Details Date Type Department Care Team (Late st Contact Info) Description 10/26/2024 Refill Gastroenterology, [address] [phone] Cheryl Bernabe MD [address] [facility] [place] [address] Allergies No known active allergiesdocumented as of this encounter (statuses as of 10/27/2024) Medications OSCAL 500/200 D-3 500-200 MG-UNIT PO [...] 10 Active MUCINEX D 120-1200 MG PO [id number]: Chronic rhinitis,Other chronic sinusitis,Hypert rophy of nasal [...] mouth every 4 hours as needed. Active Potassium Chloride ER 10 MEQ Oral Capsule Extended Release take 1 capsule by mouth once daily 90 Capsule 2 02/20/20 23 Active Diclofenac Sodium 1 % External Gel [...] 10/06/2024 1:22 PM EST 10/05/19 25 Active Pantoprazole Sodium 40 MG Oral Tablet Delayed Release (Protonix) Take 1 Tablet by mouth in the morning. 90 Tablet 3 10/27/19 25 Active Pantoprazole Sodium 40 MG Oral Tablet Delayed Release (Protonix) TAKE 1 TABLET BY MOUTH ONCE DAILY 90 Tablet 1 06/30/20 24 025 Discontin ued(Refil l) Hospital, Clinic, or Other Facility Administered Medication Ordered Dose Route Frequency Start Date End Date Status albuterol sulfate (PROVENTIL) (2.5 MG/3ML) 0.083% inhalation solution 2.5 mgIndications:ESCOBEDO (dyspnea on exertion) 2.5 mg NEBULIZER PRN 11/15/2019 Act ran documented as of this encounter (statuses as of 10/27/2024) Active Problems Problem Noted Date Diagnosed Date [...] as of this encounter (statuses as of 10/27/2024) Resolved Problems Problem Noted Date Diagnosed Date Resolved Date Gastrostomy status 06/30/2022 Current mild episode of mai r depressive [...] as of this encounter (statuses as of 10/27/2024) Immunizations Name Administration Dates Next Due COVID-19 [...] Date Author No 10/12/2020 1:01 PM Ilia Baeur RN documented in this encounter Miscellaneous Notes * Telephone Encounter - Cheryl Bernabe MD - 10/26/2024 5:15 PM EST Signed Prescriptions: Disp Refills Pantoprazole Sodium 40 MG Oral Tablet Ligia*90 Tab*3 Sig: Take 1 Tablet by mouth in the morning. Authorizing Provider: CHERYL BERNABE * Telephone Encounter - Teagan Ignacio RN - 10/26/2024 11:57 AM ESTPending Prescriptions: Disp Refills Pantoprazole Sodium 40 MG Oral Tablet Ligia*90 Tab*3 Sig: Take 1Tablet by mouth in the morning. documented in this encounter Plan of Treatment Upcoming Encounters Date Type Department Care Team (Late st Contact Info) Description 11/02/2024 2:00 PM EDT Office Visit Orthopaedics [facility] [address] [place] [phone] Anastasiya Fry PA-C [address] [place] [phone] 11/10/2024 12:30 PM EDT Telemedicine Psychiatry, [facility] [address] [place] [address] Lester Serna CRNP [address] [place] [address] 12/13/2024 10:40 AM EDT Office Visit Gastroenterology, [facility] [address] [place] [address] Cheryl Bernabe MD [address] [place] [address] Health Maintenance Due Date Last Done Comments DISCUSS TOBACCO CESSATION (REFER TO SMARTSET #4689) 1973 Albumin/Creatinine Ratio 1991 Zoster Vaccines (1 [...] Power of Attor marlyn? No Care Teams Processor Solid Propellant Relationship Specialty Start Date End Date Giovany Correa DO [address] [place] [address] PCP - General Family Medicine 10/30/20 documented as of this encounter
--- OUTSIDE RECORDS SUMMARY | 2024-11-22 11:04 | External Medical Summary | Summary of Care ---
Author Name Unknown Organization [facility] Address [address] [facility] [place] [address] Phone [phone] Care Team Providers Care Business Associate Name Role Phone Geoffrey Correavor Eleuterio Primary Care Provider Reason for Visit * Reason Comments Medication Refill Encounter Details Date Type Department Care Team (Late st Contact Info) Description 10/26/2024 Refill Marla Freedman [address] [place] [address] Lester Serna CRNP [address] [place] [address] Allergies No known active allergiesdocumented as of this encounter (statuses as of 10/26/2024) Medications OSCAL 500/200 D-3 500-200 MG-UNIT PO [...] 10 Active MUCINEX D 120-1200 MG PO [id number]: Chronic rhinitis,Other chronic sinusitis,Hypert rophy of nasal [...] Ustekinumab 90 MG/ML Subcutaneous Solution Prefilled Syringe (App Partnera) Inject 90 mg under the skin once for 1 dose. 1 mL 03/21/20 21 025 Discontin ued(Refil l) Pantoprazole Sodium 40 MG Oral Tablet Delayed [...] as of this encounter (statuses as of 10/26/2024) Active Problems Problem Noted Date Diagnosed Date [...] as of this encounter (statuses as of 10/26/2024) Resolved Problems Problem Noted Date Diagnosed Date [...] as of this encounter (statuses as of 10/26/2024) Immunizations Name Administration Dates Next Due COVID-19 [...] Telephone Encounter - Lester Serna CRNP - 10/26/2024 1:51 PM ESTRefused Prescriptions: Disp Refills Amphetamine-Dextroamphetamine 5 MG Oral Ta*60 Tab*0 Sig: Take 1 Tablet by mouth 2 times a day in the morning and at noon.Refused By: Britta SERNA for Refusal: Too soon documented in this encounter Plan of Treatment Upcoming Encounters Date Type Department Care Team (Late st Contact Info) Description 11/02/2024 2:00 PM EDT Office Visit Orthopaedics [facility] [address] [place] [phone] SharerAnastasiya PA-C [address] [place] [phone] 11/10/2024 12:30 PM EDT Telemedicine Psychiatry, [facility] [address] [place] [address] Lester Serna CRNP [address] [place] [address] 12/13/2024 10:40 AM EDT Office Visit Gastroenterology, [facility] [address] [address] Cheryl Rowley MD [address] [place] [address] Health Maintenance Due Date Last Done Comments DISCUSS TOBACCO CESSATION (REFER TO SMARTSET #7186) 1973 Albumin/Creatinine Ratio 1991 Zoster Vaccines (1 [...] Power of Attor marlyn? No Care Teams Business Associate Relationship Specialty Start Date End Date Giovany Correa DO [address] [place] [address] PCP - General Family Medicine 10/30/20 documented as of this encounter
--- OUTSIDE RECORDS SUMMARY | 2024-11-22 11:04 | External Medical Summary | Summary of Care ---
Author Name Unknown Organization [facility] Address [address] [facility] [place] [address] Phone [phone] Care Team Providers Care Personal Security Specialist Name Role Phone Geoffrey Correavor Eleuterio Primary Care Provider Reason for Visit * Reason Onset Date Comments Medication Refill 10/26/2024 Encounter Details Date Type Department Care Team (Late st Contact Info) Description [facility] [address] [place] [address] Solis Serna CRNP [address] [place] [address] Allergies No known active allergiesdocumented as of this encounter (statuses as of 10/31/2024) Medications OSCAL 500/200 D-3 500-200 MG-UNIT PO [...] 10 Active MUCINEX D 120-[id number]: Chronic rhinitis,Other chronic sinusitis,Hypert rophy of nasal [...] 10/10/2024 8:55 AM EST 05/05/20 24 Active FLUoxetine [...] Ustekinumab 90 MG/ML Subcutaneous Solution Prefilled Syringe (IAMINTOIT) Inject 90 mg under the skin once every 4 weeks 1 mL 10/27/19 25 Active Pantoprazole Sodium 40 MG Oral Tablet Delayed Release (Protonix) Take 1 Tablet by mouth in the morning. 90 Tablet 3 10/27/19 25 Active Potassium Chloride ER 10 MEQ Oral Capsule Extended Release Take 1 Capsule by mouth in the morning. 90 Capsule 10/31/2024 1:20 PM EDT 10/28/19 25 Active Gabapentin 300 MG Oral Capsule (Neurontin) Take 1 Capsule by mouth 2 times a day in the morning and at noon. 60 Capsule 1 11/01/19 25 Active Gabapentin 600 MG Oral Tablet (Neurontin) Take 1 Tablet by mouth at bedtime. 30 Tablet 1 11/01/19 25 Active Gabapentin 300 MG Oral Capsule (Neurontin) Take 1 Capsule by mouth 2 times a day in the morning and at noon. 60 Capsule 1 09/01/19 25 025 Discontin ued(Refil l) Gabapentin 600 MG Oral Tablet (Neurontin) Take 1 Tablet by mouth at bedtime. 30 Tablet 1 09/01/19 25 025 Discontin ued(Refil l) Hospital, Clinic, or Other Facility Administered Medication Ordered Dose Route Frequency Start Date End Date Status albuterol sulfate (PROVENTIL) (2.5 MG/3ML) 0.083% inhalation solution 2.5 mgIndications:ESCOBEDO (dyspnea on exertion) 2.5 mg NEBULIZER PRN 11/15/2019 Act ran documented as of this encounter (statuses as of 10/31/2024) Active Problems Problem Noted Date Diagnosed Date [...] as of this encounter (statuses as of 10/31/2024) Resolved Problems Problem Noted Date Diagnosed Date [...] as of this encounter (statuses as of 10/31/2024) Immunizations Name Administration Dates Next Due COVID-19 [...] Telephone Encounter - Solis Serna CRNP - 10/31/2024 1:38 PM EDTSigned Prescriptions: Disp Refills Gabapentin 300 MG Oral Capsule (Neurontin) 60 Cap*1 Sig: Take 1 Capsule by mouth 2 times a day in the morning and at noon. Authorizing Provider: SOLIS SERNA Gabapentin 600 MG Oral Tablet (Neurontin) 30 Tab*1 Sig: Take 1 Tablet by mouth at bedtime. Authorizing Provider: SOLIS SERNA * Telephone Encounter - Elizabeth Nguyen LPN - 10/30/2024 1:17 PM EDT Pending Prescriptions: Disp Refills Gabapentin 300 MG Oral Capsule (Neurontin) 60 Cap*1 Sig: Take 1 Capsule by mouth 2 times a day in the morning and at noon. Gabapentin 600 MG Oral Tablet (Neurontin) 30 Tab*1 Sig: Take 1 Tablet by mouth at bedtime. * Telephone Encounter - Elizabeth Nguyen LPN - 10/30/2024 1:15 PM EDT Refill request from patient ([facility]) for Gabapentin. Medication last filled on 09/01/2024 with 1 refills. Patient last seen on 09/15/2024 with return appointment scheduled for 11/10/2024. Patient had 0 cancelled appointments and 0 NO SHOW appointments. documented in this encounter Plan of Treatment Upcoming Encounters Date Type Department Care Team (Late st Contact Info) Description 11/02/2024 2:00 PM EDT Office Visit Orthopaedics [facility] [address] [place] [phone] Anastasiya Fry PA-C [address] [place] [phone] 11/10/2024 12:30 PM EDT Telemedicine Psychiatry, [facility] [address] [place] [address] Solis Serna CRNP [address] [place] [address] 12/13/2024 10:40 AM EDT Office Visit Gastroenterology, [facility] [address] [place] [address] Cheryl Rowley MD [address] [place] [address] Health Maintenance Due Date Last Done Comments DISCUSS TOBACCO CESSATION (REFER TO SMARTSET #1578) 1973 Albumin/Creatinine Ratio 1991 Zoster Vaccines (1 [...] Tdap) 02/07/2030 02/08/2020, 12/19/2009 Colonoscopy 07/10/2034 07/10/2024, 05/08/2023, 01/11/2024, Additional history exists Colorectal Cancer Screening [...] Power of Attor marlyn? No Care Teams Personal Security Specialist Relationship Specialty Start Date End Date Giovany Correa DO [address] [place] [address] PCP - General Family Medicine 10/30/20 documented as of this encounter
--- OUTSIDE RECORDS SUMMARY | 2024-11-22 11:04 | External Medical Summary | Summary of Care ---
Author Name Unknown Organization [facility] Address [address] [facility] [place] [address] Phone [phone] Care Team Providers Care Garnett Mechanic Name Role Phone Giovany Correa DO Primary Care Provider Reason for Visit * Reason Comments Medication Refill Encounter Details Date Type Department Care Team (Late st Contact Info) Description 10/26/2024 Refill Family [facility] [address] [place] [address] Giovany Correa DO [address] [place] [address] Anxiety Allergies No known active allergiesdocumented as [...] 0 Active NASAL SALINE 0.65 % NA SOLNIndications: Chronic rhinitis,Other chronic sinusitis flush each nostril morning and night and every 2-4 hrs as needed for nasal dryness or congestion 1 Bottle 4 0 Active MUCINEX D 120-1200 MG PO [id number]: Chronic rhinitis,Other chronic sinusitis,Hypert rophy of nasal [...] by mouth once daily 90 Capsule 2 3 Active Diclofenac Sodium 1 % External Gel (Voltaren)Indica tions:Elbow pain, chronic, right apply 4 grams to affected area three times a day NEEDED FOR PAIN APPLY TO ELBOW 350 g 3 3 Active Additional Information Patient not taking.Reported on 05/23/2024 Diphenoxylate-At ropine 2.5-0.025 MG Oral Tablet (Lomotil) Take 1 Tablet by mouth daily as needed for Diarrhea. 30 Tablet 5 4 Active Stelara 90 MG/ML Subcutaneous Solution Prefilled Syringe (Ustekinumab)Ind ications:Crohn's disease of colon without complication (HCC) Inject 90 mg under the skin every 4 weeks. 1 mL 5 10/10/2024 8:55 AM EST 4 Active Gabapentin 300 MG Oral Capsule (Neurontin) Take 1 Capsule by mouth 2 times a day in the morning and at noon. 60 Capsule 1 5 Active Gabapentin 600 MG Oral Tablet (Neurontin) Take 1 Tablet by mouth at bedtime. 30 Tablet 1 5 Active FLUoxetine HCl 20 MG/5ML Oral Solution (PROzac) Take 20 mL by mouth in the morning. 600 mL 2 5 Active Dextromethorphan -buPROPion ER 45-105 MG Oral Tablet Extended Release (Auvelity) Take 1 Tablet by mouth in the morning and 1 Tablet before bedtime. 60 Tablet 2 5 Active LORazepam 0.5 MG Oral Tablet (Ativan)Indicati ons:Anxiety TAKE 1 TABLET BY MOUTH IN THE MORNING, 1 tablet AT NOON AND 1 tablet BEFORE BEDTIME 90 Tablet 10/11/2024 7:43 AM EST 5 Active Amphetamine-Dext roamphetamine 5 MG Oral Tablet (Adderall) Take 1 Tablet by mouth 2 times a day in the morning and at noon. 60 Tablet 10/06/2024 1:22 PM EST 5 Active Ustekinumab 90 MG/ML Subcutaneous Solution Prefilled Syringe (DiViNetworks) Inject 90 mg under the skin once for 1 dose. 1 mL 5 10/29/19 25 Active Pantoprazole Sodium 40 MG Oral Tablet Delayed Release (Protonix) Take 1 Tablet by mouth in the morning. 90 Tablet 3 5 Active Hospital, Clinic, or Other Facility [...] encounter Miscellaneous Notes * Telephone Encounter - Angel Kiser, [facility] - 10/27/2024 11:07 AM EST Refused Prescriptions: Disp Refills LORazepam 0.5 MG Oral Tablet (Ativan) 90 Tab*0 Sig: TAKE 1 TABLET BY MOUTH IN THE MORNING, 1 tablet AT NOON AND 1 tablet BEFORE BEDTIMERefused By: Suresh KISER for Refusal: Too soonReason for Refusal Comment: 30 day supply just filled 10/11/24----- * Telephone Encounter - Angel Kiser RPh - 10/27/2024 11:05 AM EST I have reviewed the patients controlled substance dispensing history in the Prescription Drug Monitoring Program in compliance with the [facility] regulations before prescribing a controlled substance. PDMP checked on 10/27/2024. Pending Prescriptions: Disp Refills LORazepam 0.5 MG Oral Tablet (Ativan) 90 Tab*0 Sig: TAKE 1 TABLET BY MOUTH IN THE MORNING, 1 tablet AT NOON AND 1 tablet BEFORE BEDTIME Last Visit: 10/12/2024 (in office), 08/03/2023 (telemedicine) Next Visit: Visit date not found Date medication was last filled: 10/11/24 Date medication is due for refill: 11/08/24 Pharmacy: [facility] Is this request for a controlled substance? Yes and Urine Drug Screen Not completed Please approve if appropriate. Thanks, Angel Kiser, PharmD Clinical Pharmacist [facility] ([facility]) [phone] 10/27/2024, 11:05 AM documented in this encounter Plan of Treatment Upcoming Encounters Date Type Department Care Team (Late st Contact Info) Description 11/02/2024 2:00 PM EDT Office Visit Orthopaedics [facility] [address] [place] [phone] SharerAnastasiya PA-C [address] [place] [phone] 11/10/2024 12:30 PM EDT Telemedicine Psychiatry, [facility] [address] [place] [address] Lester Serna CRNP [address] [place] [address] 12/13/2024 10:40 AM EDT Office Visit Gastroenterology, [facility] [address] [place] [address] Cheryl Rowley MD [address] [place] [address] Health Maintenance Due Date Last Done Comments DISCUSS TOBACCO CESSATION (REFER TO SMARTSET #5051) 1975 Albumin/Creatinine Ratio 1991 Zoster Vaccines (1 [...] unspecified documented in this encounter Advance Directives * [...] Power of Attor marlyn? No Care Teams Garnett Mechanic Relationship Specialty Start Date End Date Giovany Correa DO [address] [place] [address] PCP - General Family Medicine 10/30/20 documented as of this encounter
--- OUTSIDE RECORDS SUMMARY | 2024-11-22 11:04 | External Medical Summary | Summary of Care ---
Author Name Unknown Organization [facility] Address [address] [facility] [place] [address] Phone [phone] Care Team Providers Care Leather Tacker Name Role Phone Giovany Correa Primary Care Provider Reason for Visit * Reason Onset Date Comments Medication Refill 10/26/2024 Encounter Details Date Type Department Care Team (Late st Contact Info) Description 10/26/2024 Refill [facility], [facility] [place] [address] Cheryl Bernabe MD [address] [facility] [place] [address] Allergies No known active allergiesdocumented as of [...] 10 Active MUCINEX D 120-1200 MG PO [id number]: Chronic rhinitis,Other chronic sinusitis,Hypert rophy of nasal [...] skin once for 1 dose. 1 mL 10/27/19 25 Active Ustekinumab 90 MG/ML Subcutaneous Solution [...] Encounter - Cheryl Bernabe MD - 10/26/2024 5:14 PM EST Signed Prescriptions: Disp Refills Ustekinumab 90 MG/ML Subcutaneous Solution*1 mL 0 Sig: Inject 90 mg under the skin once for 1 dose. Authorizing Provider: CHERYL BERNABE Refused Prescriptions: Disp Refills Diphenoxylate-Atropine 2.5-0.025 MG Oral T*30 Tab*5 Sig: Take 1 Tablet by mouth daily as needed for Diarrhea. Refused By: CHERYL BURRELL Reason for Refusal: Course of treatment complete * Telephone Encounter - Ariadne Jernigan LPN - 10/26/2024 12:24 PM ESTPending Prescriptions: Disp Refills Ustekinumab 90 MG/ML Subcutaneous Solution*1 mL 0 Sig: Inject 90 mg under the skin once for 1 dose. Diphenoxylate-Atropine 2.5-0.025 MG Oral T*30 Tab*5 Sig: Take 1 Tablet by mouth daily as needed for Diarrhea. * Telephone Encounter - Ariadne Jernigan LPN - 10/26/2024 12:17 PM EST Did you pend patient's preferred pharmacy and medication before forwarding?yes Pharmacy: [email or web address] Pending Prescriptions: Disp Refills Ustekinumab 90 MG/ML Subcutaneous Solutio*1 mL 0 Sig: Inject 90 mg under the skin once for 1 dose. Diphenoxylate-Atropine 2.5-0.025 MG Oral *30 Tab*5 Sig: Take 1 Tablet by mouth daily as needed for Diarrhea. Last Visit: 01/12/2023 (in office), 05/20/2023 (telemedicine) Next Visit: 12/13/2024 If no future appointments scheduled, and last appointment is greater than a year ago, please schedule patient for a follow-up appointment Last date the medication was ordered: 03/21/2021 Is this request for a controlled substance?No [...] 11/02/2024 2:00 PM EDT Office Visit Orthopaedics [facility] [address] [place] [phone] Anastasiya Fry PA-C [address] [place] [phone] 11/10/2024 12:30 PM EDT Telemedicine Psychiatry, [facility] [address] [place] [address] Lester Serna CRNP [address] [place] [address] 12/13/2024 10:40 AM EDT Office Visit Gastroenterology, [facility] [address] [place] [address] Cheryl Bernabe MD [address] [place] [address] Health Maintenance Due Date Last Done Comments DISCUSS TOBACCO CESSATION (REFER TO SMARTSET #3893) 1975 Albumin/Creatinine Ratio 1991 Zoster Vaccines (1 [...] Power of Attor marlyn? No Care Teams Leather Tacker Relationship Specialty Start Date End Date Giovany Correa DO [address] [place] [address] PCP - General Family Medicine 10/30/20 documented as of this encounter
--- OUTSIDE RECORDS SUMMARY | 2024-11-22 11:05 | External Medical Summary | Summary of Care ---
Author Name Unknown Organization [facility] Address [address] [facility] [place] [address] Phone [phone] Care Team Providers Care Photography Instructor Name Role Phone Giovany Correa DO Primary Care Provider Reason for Visit * Reason Comments NEW PATIENT L ankle DOI: 10/10 * Evaluate & Treat - Unlimited Visits (Within 3 days (urgent)) - Authorized Specialty Diagnoses / Procedures Referred By Coco t Referred To Contact Orthopaedic Surgery / Orthopedics Diagnoses Malleolar fracture, left, closed, initial encounter Goivany Correa DO [address] [place] [address] Phone: tel: fax: Referral ID Status Reason Start Date Expiration Date Visits Requested Visits Authorized [id number] Authorized Specialty Services Required 10/12/2024 [id number] Encounter Details Date Type Department Care Team (Late st Contact Info) Description 10/12/2024 3:45 PM EST Office Visit Orthopaedics [facility] [address] [place] [phone] Sharer, Anastasiya Narayanan PA-C [address] [place] [phone] Closed avulsion fracture of lateral malleolus of left fibula, initial encounter* Allergies No known active allergiesdocumented as of this encounter (statuses as of 10/13/2024) Medications OSCAL 500/200 D-3 500-200 MG-UNIT PO [...] 0 Active MUCINEX D 120-1200 MG PO [id number]: Chronic rhinitis,Other chronic sinusitis,Hypert rophy of nasal [...] a day 18 g 3 1 Active Ustekinumab 90 MG/ML Subcutaneous Solution Prefilled Syringe (Stelera) Inject 90 mg under the skin once for 1 dose. 1 mL 1 Active Fluticasone Propionate 50 MCG/ACT Nasal [...] Stelara 90 MG/ML Subcutaneous Solution Prefilled Syringe ([employer])Ind ications:Crohn's disease of colon without complication (HCC) Inject 90 mg under the skin every 4 weeks. 1 mL 5 10/10/2024 8:55 AM EST 4 Active Pantoprazole Sodium 40 MG Oral Tablet Delayed Release (Protonix) TAKE 1 TABLET BY MOUTH ONCE DAILY 90 Tablet 1 4 Active Gabapentin 300 MG Oral Capsule [...] Tablet 10/06/2024 1:22 PM EST 5 Active Hospital, Clinic, or Other Facility Administered Medication Ordered Dose Route Frequency Start Date End Date Status albuterol sulfate (PROVENTIL) (2.5 MG/3ML) 0.083% inhalation solution 2.5 mgIndications:ESCOBEDO (dyspnea on exertion) 2.5 mg NEBULIZER PRN 11/15/2019 Act ran documented as of this encounter (statuses as of 10/13/2024) Active Problems Problem Noted Date Diagnosed Date [...] Vitamin D deficiency 11/21/2014 Overview (05/24/2017): October 2014. Discuss with PCP. ICD-10 update of inactive term Tobacco use disorder Depression with anxiety documented as of this encounter (statuses as of 10/13/2024) Resolved Problems Problem Noted Date Diagnosed Date [...] as of this encounter (statuses as of 10/13/2024) Immunizations Name Administration Dates Next Due COVID-19 [...] Notes * Sharer, Anastasiya Narayanan PA-C - 10/13/2024 2:52 PM EST Keiry Crzu is a 49 year old female who presents for consultation to [facility] for left ankle injury/pain. Consult requested by Self . Keiry Cruz is here unaccompanied History: Keiry Cruz reports that left ankle pain started 10/04/2024. Patient states she slipped on iceand injured the left ankle. She developed left ankle pain and swelling. She was initially treated at [facility] where she was placed in a splint and remain nonweightbearing. She notes interval improvement. Review of systems: All others negative except [...] four times a day 18 g 3 Ustekinumab 90 MG/ML Subcutaneous Solution Prefilled Syringe (Stelera) Inject 90 mg under the skin once for 1 dose. 1 mL 0 Fluticasone Propionate 50 MCG/ACT Nasal Suspension [...] needed. (Patient not taking: Reported on 01/11/2024) Potassium Chloride ER 10 MEQ Oral Capsule Extended Release take 1 capsule by mouth once daily 90 Capsule 2 Diclofenac Sodium 1 % External Gel (Voltaren) apply 4 grams to affected area three times a day NEEDED FOR PAIN APPLY TO ELBOW (Patient not taking: Reported on 05/23/2024) 350 g 3 Diphenoxylate-Atropine 2.5-0.025 MG Oral Tablet (Lomotil) Take 1 Tablet by mouth daily as needed for Diarrhea. 30 Tablet 5 Stelara 90 MG/ML Subcutaneous Solution Prefilled Syringe ([facility]) Inject 90 mg under the skin every 4 weeks. 1 mL 5 Pantoprazole Sodium 40 MG Oral Tablet Delayed Release (Protonix) TAKE 1 TABLET BY MOUTH ONCE DAILY 90 Tablet 1 Gabapentin 300 MG Oral Capsule (Neurontin) Take 1 Capsule by mouth 2 times a day in the morning andat noon. 60 Capsule 1 Gabapentin 600 MG Oral Tablet (Neurontin) Take 1 Tablet by mouth at bedtime. 30 Tablet 1 FLUoxetine HCl 20 MG/5ML Oral Solution (PROzac) Take 20 mL by mouth in the morning. 600 mL 2 Dextromethorphan-buPROPion ER 45-105 MG Oral Tablet Extended Release (Auvelity) Take 1 Tablet by mouth in the morning and 1 Tablet before bedtime. 60 Tablet 2 LORazepam 0.5 MG Oral Tablet (Ativan) TAKE 1 TABLET BY MOUTH IN THE MORNING, 1 tablet AT NOON AND 1tablet BEFORE BEDTIME 90 Tablet 0 Amphetamine-Dextroamphetamine 5 MG Oral Tablet (Adderall) Take 1 Tablet by mouth 2 times a day in the morning and at noon. 60 Tablet 0 Current Facility-Administered Medications Medication Dose Route Frequency [...] performed by Cheryl Rowley MD at ENDOSCOPY [facility] COLONOSCOPY, DIAGNOSTIC (RECTUM) 01/23/2013 COLONOSCOPY FLEXIBLE PROXIMAL DIAGNOSTIC performed by Cheryl Rowley MD at ENDOSCOPY [facility] COLONOSCOPY, DIAGNOSTIC (RECTUM) 02/02/2013 COLONOSCOPY FLEXIBLE PROXIMAL DIAGNOSTIC performed by Cheryl Rowley MD at ENDOSCOPY [facility] COLONOSCOPY, DIAGNOSTIC (RECTUM) 07/28/2017 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/COLONOSCOPY FLEXIBLE PROXIMAL DIAGNOSTIC performed by Cheryl Rowley MD at ENDOSCOPY [facility] COLONOSCOPY, DIAGNOSTIC (RECTUM) 07/24/2019 Mild anal stenosis/COLONOSCOPY FLEXIBLE PROXIMAL DIAGNOSTIC performed by Cheryl Rowley MD at ENDOSCOPY [facility] COLONOSCOPY, DIAGNOSTIC (RECTUM) 08/20/2020 Anastamotic stricture / INPT [facility] COLONOSCOPY, DIAGNOSTIC (RECTUM) 07/22/2021 normal bx / COLONOSCOPY FLEXIBLE PROXIMAL DIAGNOSTIC performed by Cheryl Rowley MD at ENDOSCOPY [facility] COLONOSCOPY, DIAGNOSTIC (RECTUM) 07/03/2022 no evidence of active IBD, Crohns appears in remission / biopsies no specific pathologic change / follow up in clinic / COLONOSCOPY FLEXIBLE PROXIMAL DIAGNOSTIC performed by Charlie Ma ENDOSCOPY [facility] COLONOSCOPY, DIAGNOSTIC (RECTUM) 01/11/2024 end-to-side ileo-colonic anastomosis, inflammation, ulceration and stenosis/skip ulcers/hemorrhoids/biopsies show mild to moderate inflammation/COLONOSCOPY FLEXIBLE PROXIMAL DIAGNOSTIC performed by Kamran Whelan MD at ENDOSCOPY [facility] CYSTOSCOPY/INSERTION OF STENT 01/01/2010 CYSTOURETHROSCOPY WITH INSERTION URETERAL STENT performed by ZEV MAZA at [facility] EGD, FLEXIBLE, DIAGNOSTIC 09/08/2012 UPPER GI ENDOSCOPY DIAGNOSTIC performed by Cheryl Rowley MD at ENDOSCOPY [facility] INFERIOR TURBINATES ABLATION, INTRAMURAL Right 12/13/2007 CAUTERIZE MUSOSA OF INFERIOR TURBINATES INTRAMURAL performed by Lin Zabala MD at OR [facility] INFERIOR TURBINATES ABLATION, SUPERFICIAL Left 12/13/2007 CAUTERIZE MUSOSA OF INFERIOR TURBINATES SUPERFICIAL performed by Lin Zabala MD at OR [facility] LAPAROSCOPIC COLECTOMY PARTIAL WITH ANASTOMOSIS 01/01/2010 LAPAROSCOPIC COLECTOMY PARTIAL WITH ANASTOMOSIS performed by HALEY VAZQUEZ at OR [facility] LAPAROSCOPY DIAGNOSTIC N/A 10/13/2020 LAPAROSCOPY DIAGNOSTIC performed by Betsy Wallace MD at OR [facility] [employer] 52MG 10/2008 NASAL SEPTUM CARTILAGE [...] Occupational History Occupation: [employer] Employer: [employer] Tobacco Use Smoking status: Every Day Current [...] Stability Do you currently live in a [place] or have no steady place to sleep [...] 1.727 m (5' 7.99"). Weight as of an earlier encounter on 10/12/24: 74.8 kg (165 lb). General: generally well-nourished and in no acute distress HEENT: normocephalic, atraumatic, sclera anicteric. Psych: mood and affect normal , cooperative Resp: equal chest rise, non-tachypneic, non-labored breathing Neurovascular status/sensation: sensation intact in the common peroneal, tibial and saphenous nervedistributions. Toes well perfused with normal capillary refill MSK: Gait/station/stance: normal reciprocal gait, non antalgic without an assistive device on smooth flat indoor surface. Ankle Exam Inspection: Mild ankle swelling. No ecchymosis. Skin intact. Palpation: Diffusely tender to palpation throughout the ankle. ROM: Dorsiflexion (normal 20): L - 10, R - 20 Plantarflexion (normal 50): L - 40, R - 50 Inversion (normal 35): L [...] and reviewed with patient. Those x-rays show lateral malleolus avulsion fracture. Chronic appearing avulsion of the medial malleolus with calcifications. There was no widening of the medial joint space. No widening of syndesmosis. Mortise is intact. Assessment and Plan: Closed avulsion fracture of lateral malleolus of left fibula, initial encounter (Primary) - XR ANKLE 3 OR MORE VIEWS Recommend she transition to a high tide walking boot. She may weightbear as tolerated in the boot. Encouraged ice and elevation. She will follow up in 2-3 weeks with repeat x-rays. Anastasiya Fry PA-C [facility] [address] [place] [address] documented in this encounter Nursing Notes * Hiral Puentes, MED ASSIST - 10/12/2024 3:34 PM EST Here for Today's visit regarding: L ankle injury Location of pain: L ankle Injury: Slipped on ice Recent Imagin10/04/24 Prior treatment: [facility]NC Prior Surgery: n/a Date of injury or symptoms started: 10/03 Goals for this appointment: eval documented in this encounter Plan of Treatment Upcoming Encounters Date Type Department Care Team (Late st Contact Info) Description 11/02/2024 2:00 PM EDT Office Visit Orthopaedics [facility] [address] [place] [phone] Anastasiya Fry PA-C [address] [place] [phone] 11/10/2024 12:30 PM EDT Telemedicine Psychiatry, [facility] [address] [place] [address] Lester Serna CRNP [address] [place] [address] 12/13/2024 10:40 AM EDT Office Visit Gastroenterology, [facility] [address] [place] [address] Cheryl Rowley MD [address] [place] [address] Health Maintenance Due Date Last Done Comments DISCUSS TOBACCO CESSATION (REFER TO SMARTSET #6117) 1973 Albumin/Creatinine Ratio 1991 Zoster Vaccines (1 [...] exists Influenza Vaccine (FLU shot) (#1) 2024 Depression Monitoring 05/04/2025 05/04/2024 Diabetes Screening 01/08/2026 [...] XR ANKLE 3 OR MORE VIEWS Routine 10/12/2024 3:50 PM EST Closed avulsion fracture of lateral malleolus of left fibula, initial encounter documented in this encounter Results * XR ANKLE 3 OR MORE VIEWS (10/12/2024 3:50 PM EST) Anatomical Region Laterality Modality Ankle, Lower Extremity Computed Radiography 10/13/2024 5:23 PM EST Impressions 10/13/2024 5:20 PM EST IMPRESSION Nondisplaced fibular tip fracture. Narrative 10/13/2024 5:20 PM EST EXAM XR ANKLE 3 OR MORE VIEWS-10/12/2024 3:50 pm HISTORY injury TECHNIQUE Three images COMPARISON None. FINDINGS There is splinting which obscures fine bony detail. There is a chronic appearing fracture through the medial malleolus. Acute nondisplaced fibular tip fracture. Mortise alignment is maintained. The bones are osteopenic. Achilles enthesophyte is noted. Mild midfoot osteoarthritis is present. Procedure Note Quita Kulkarni MD - 10/13/2024 EXAM XR ANKLE 3 OR MORE VIEWS-10/12/2024 3:50 pm HISTORY injury TECHNIQUE Three images COMPARISON None. FINDINGS There is splinting which obscures fine bony detail. There is a chronicappearing fracture through the medial malleolus. Acute nondisplacedfibular tip fracture. Mortise alignment is maintained. The bones areosteopenic. Achilles enthesophyte is noted. Mild midfoot osteoarthritisis present. IMPRESSION IMPRESSION Nondisplaced fibular tip fracture. Anastasiya Lady Sharer [facility] F inal Result documented in this encounter Visit Diagnoses Diagnosis Closed avulsion fracture of lateral malleolus of left fibula, initial encounter- Primary documented in this encounter Advance [...] Power of Attor marlyn? No Care Teams Photography Instructor Relationship Specialty Start Date End Date Giovany Correa DO [address] [place] [address] PCP - General Family Medicine 10/30/20 documented as of this encounter
--- OUTSIDE RECORDS SUMMARY | 2024-11-22 11:05 | External Medical Summary | Summary of Care ---
Author Name Unknown Organization [facility] Address [address] [facility] [place] [address] Phone [phone] Care Team Providers Care Timber Watchman Name Role Phone Howie Correa DO Primary Care Provider Reason for Visit * Reason Onset Date Comments Medication Refill 10/05/2024 Encounter Details Date Type Department Care Team (Late st Contact Info) Description 10/05/2024 Refill Family Practice [facility] [address] [place] [address] Howie Correa DO [address] [place] [address] Anxiety Allergies No known active allergiesdocumented as of this encounter (statuses as of 10/09/2024) Medications OSCAL 500/200 D-3 500-200 MG-UNIT PO [...] 10 Active MUCINEX D 120-1200 MG PO [id number]: Chronic rhinitis,Other chronic sinusitis,Hypert rophy of nasal [...] day 18 g 3 02/04/20 21 Active traMADol HCl 50 MG Oral Tablet (Ultram) Take 1 Tab by mouth every 6 hours as needed (pain not controlled with tylenol). 5 Tab 02/20/20 21 Active Additional Information Patient not taking.Reported on 01/10/2024 Ustekinumab 90 MG/ML Subcutaneous Solution Prefilled Syringe (Receptor) Inject 90 mg under the skin once for 1 dose. 1 mL 03/21/20 21 Active Fluticasone Propionate 50 MCG/ACT Nasal [...] skin every 4 weeks. 1 mL 5 08/28/2024 10:33 AM EST 05/05/20 24 Active Pantoprazole Sodium 40 MG Oral Tablet Delayed Release (Protonix) TAKE 1 TABLET BY MOUTH ONCE DAILY 90 Tablet 1 06/30/20 24 Active Gabapentin 300 MG Oral Capsule [...] TAKE 1 TABLET BY MOUTH IN THE MORNING AT AT NOON AND BEFORE BEDTIME 90 Tablet 10/09/19 25 Active Amphetamine-Dext roamphetamine 5 MG Oral Tablet (Adderall) Take 1 Tablet by mouth 2 times a day in the morning and at noon. 60 Tablet 10/06/2024 1:22 PM EST 10/05/19 25 Active LORazepam 0.5 MG Oral Tablet (Ativan)Indicati ons:Anxiety TAKE 1 TABLET BY MOUTH IN THE MORNING AT AT NOON AND BEFORE BEDTIME 90 Tablet 09/04/19 25 025 Discontin ued(Refil l) Hospital, Clinic, or Other Facility Administered Medication Ordered Dose Route Frequency Start Date End Date Status albuterol sulfate (PROVENTIL) (2.5 MG/3ML) 0.083% inhalation solution 2.5 mgIndications:ESCOBEDO (dyspnea on exertion) 2.5 mg NEBULIZER PRN 11/15/2019 Act ran documented as of this encounter (statuses as of 10/09/2024) Active Problems Problem Noted Date Diagnosed Date [...] as of this encounter (statuses as of 10/09/2024) Resolved Problems Problem Noted Date Diagnosed Date [...] as of this encounter (statuses as of 10/09/2024) Immunizations Name Administration Dates Next Due COVID-19 [...] Telephone Encounter - Howie Correa DO - 10/09/2024 7:34 AM EST Signed Prescriptions: Disp Refills LORazepam 0.5 MG Oral Tablet (Ativan) 90 Tab*0 Sig: TAKE 1 TABLET BY MOUTH IN THE MORNING AT AT NOON AND BEFORE BEDTIME Authorizing Provider: HOWIE CORREA * Telephone Encounter - Ousmane Oakley, [facility] - 10/05/2024 4:38 PM ESTPending Prescriptions: Disp Refills LORazepam 0.5 MG Oral Tablet (Ativan) 90 Tab*0 Sig: TAKE 1 TABLET BY MOUTH IN THE MORNING AT AT NOON AND BEFORE BEDTIME * Telephone Encounter - Angel Kiser, [facility] - 10/05/2024 3:52 PM EST I have reviewed the patients controlled substance dispensing history in the Prescription Drug Monitoring Program in compliance with the [facility] regulations before prescribing a controlled substance. PDMP checked on 10/05/2024. Pending Prescriptions: Disp Refills LORazepam 0.5 MG Oral Tablet (Ativan) 90 Tab*0 Sig: TAKE 1 TABLET BY MOUTH IN THE MORNING AT AT NOON AND BEFORE BEDTIME Last Visit: 01/12/2023 (in office), 08/03/2023 (telemedicine) Next Visit: Visit date not found Date medication was last filled: 09/04/24 Date medication is due for refill: 10/02/24 Pharmacy: [facility] Is this request for a controlled substance? Yes and Urine Drug Screen Not completed Please approve if appropriate. Thanks, Angel Kiser, PharmD Clinical Pharmacist [facility] ([facility]) [phone] 10/05/2024, 3:53 PM documented in this encounter Plan of Treatment Upcoming Encounters Date Type Department Care Team (Late st Contact Info) Description 10/09/2024 2:20 PM EST Office Visit Family Practice [facility] [address] [place] [address] Howie Correa DO [address] [place] [address] 11/10/2024 12:30 PM EDT Telemedicine Psychiatry, [facility] [address] [place] [address] Lester Serna CRNP [address] [place] [address] 12/13/2024 10:40 AM EDT Office Visit Gastroenterology, [facility] [address] [place] [address] Cheryl Rowley MD [address] [place] [address] Health Maintenance Due Date Last Done Comments [...] Power of Attor marlyn? No Care Teams Timber Watchman Relationship Specialty Start Date End Date Howie Correa DO [address] [place] [address] PCP - General Family Medicine 10/30/20 documented as of this encounter
--- OUTSIDE RECORDS SUMMARY | 2024-11-22 11:05 | External Medical Summary | Summary of Care ---
Author Name Unknown Organization [facility] Address [address] [facility] [place] [address] Phone [phone] Care Team Providers Care Personal Computer Specialist Name Role Phone Giovany Correa DO Primary Care Provider Reason for Visit * Reason Comments NEW PATIENT L ankle DOI: 10/10 * Evaluate & Treat - Unlimited Visits (Within 3 days (urgent)) - Authorized Specialty Diagnoses / Procedures Referred By Coco t Referred To Contact Orthopaedic Surgery / Orthopedics Diagnoses Malleolar fracture, left, closed, initial encounter Giovany Correa DO [address] [place] [address] Phone: tel: fax: Referral ID Status Reason Start Date Expiration Date Visits Requested Visits Authorized [id number] Authorized Specialty Services Required 10/12/2024 [id number] Encounter Details Date Type Department Care Team (Late st Contact Info) Description 10/12/2024 3:45 PM EST Office Visit Orthopaedics [facility] [address] [place] [phone] Sharer, Anastasiya Narayanan PA-C [address] [place] [phone] Closed avulsion fracture of lateral malleolus of left fibula, initial encounter* Allergies No known active allergiesdocumented as of this encounter (statuses as of 10/18/2024) Medications OSCAL 500/200 D-3 500-200 MG-UNIT PO [...] 0 Active MUCINEX D 120-1200 MG PO [id number]: Chronic rhinitis,Other chronic sinusitis,Hypert rophy of nasal [...] Stelara 90 MG/ML Subcutaneous Solution Prefilled Syringe (UsInvoiceSharinginumHone and Strop)Ind ications:Crohn's disease of colon without complication (HCC) [...] as of this encounter (statuses as of 10/18/2024) Active Problems Problem Noted Date Diagnosed Date [...] as of this encounter (statuses as of 10/18/2024) Resolved Problems Problem Noted Date Diagnosed Date [...] as of this encounter (statuses as of 10/18/2024) Immunizations Name Administration Dates Next Due COVID-19 [...] PA-C - 10/13/2024 2:52 PM EST Keiry Cruz is a 49 year old female who presents for consultation to [facility] for left ankle injury/pain. Consult requested by Self . Keiry Cruz is here unaccompanied History: Keiry Cruz reports that left ankle pain started 10/04/2024. Patient states she slipped on iceand injured the left ankle. She developed left ankle pain and swelling. She was initially treated at [facility] where she was placed in a [...] Stelara 90 MG/ML Subcutaneous Solution Prefilled Syringe ([employer]) Inject 90 mg under the skin every [...] performed by Cheryl Rowley MD at ENDOSCOPY [facility] COLONOSCOPY, DIAGNOSTIC (RECTUM) 01/23/2013 COLONOSCOPY FLEXIBLE PROXIMAL DIAGNOSTIC performed by Cheryl Rowley MD at ENDOSCOPY [facility] COLONOSCOPY, DIAGNOSTIC (RECTUM) 02/02/2013 COLONOSCOPY FLEXIBLE PROXIMAL DIAGNOSTIC performed by Cheryl Rowley MD at ENDOSCOPY [facility] COLONOSCOPY, DIAGNOSTIC (RECTUM) 07/28/2017 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/COLONOSCOPY FLEXIBLE PROXIMAL DIAGNOSTIC performed by Cheryl Rowley MD at ENDOSCOPY [facility] COLONOSCOPY, DIAGNOSTIC (RECTUM) 07/24/2019 Mild anal stenosis/COLONOSCOPY FLEXIBLE PROXIMAL DIAGNOSTIC performed by Cheryl Rowley MD at ENDOSCOPY [facility] COLONOSCOPY, DIAGNOSTIC (RECTUM) 08/20/2020 Anastamotic stricture / INPT [facility] COLONOSCOPY, DIAGNOSTIC (RECTUM) 07/22/2021 normal bx / COLONOSCOPY FLEXIBLE PROXIMAL DIAGNOSTIC performed by Cheryl Rowley MD at ENDOSCOPY [facility] COLONOSCOPY, DIAGNOSTIC (RECTUM) 07/03/2022 no evidence of active IBD, Crohns appears in remission / biopsies no specific pathologic change / follow up in clinic / COLONOSCOPY FLEXIBLE PROXIMAL DIAGNOSTIC performed by Charlie Ma ENDOSCOPY [facility] COLONOSCOPY, DIAGNOSTIC (RECTUM) 01/11/2024 end-to-side ileo-colonic anastomosis, inflammation, ulceration and stenosis/skip ulcers/hemorrhoids/biopsies show mild to moderate inflammation/COLONOSCOPY FLEXIBLE PROXIMAL DIAGNOSTIC performed by Kamran Whelan MD at ENDOSCOPY [facility] CYSTOSCOPY/INSERTION OF STENT 01/01/2010 CYSTOURETHROSCOPY WITH INSERTION URETERAL STENT performed by ZEV MAZA at OR [facility] EGD, FLEXIBLE, DIAGNOSTIC 09/08/2012 UPPER GI ENDOSCOPY DIAGNOSTIC performed by Cheryl Row[facility] BL[place] INFERIOR TURBINATES ABLATION, INTRAMURAL Right 12/13/2007 CAUTERIZE MUSOSA OF INFERIOR TURBINATES INTRAMURAL performed by Lin Zabala MD at OR [facility] INFERIOR TURBINATES ABLATION, SUPERFICIAL Left 12/13/2007 CAUTERIZE MUSOSA OF INFERIOR TURBINATES SUPERFICIAL performed by Lin Zabala MD at OR [facility] LAPAROSCOPIC COLECTOMY PARTIAL WITH ANASTOMOSIS 01/01/2010 LAPAROSCOPIC COLECTOMY PARTIAL WITH ANASTOMOSIS performed by HALEY VAZQUEZ at OR [facility] LAPAROSCOPY DIAGNOSTIC N/A 10/13/2020 LAPAROSCOPY DIAGNOSTIC performed by Betsy Wallace MD at OR [facility] [employer] 52MG 10/2008 NASAL SEPTUM CARTILAGE [...] Occupational History Occupation: [employer] Employer: [employer] Tobacco Use Smoking status: Every Day Current [...] Stability Do you currently live in a snf or have no steady place to sleep [...] weeks with repeat x-rays. Anastasiya Fry PA-C [facility] [address] [place] [address] documented in this encounter Nursing Notes * Hiral Puentes MED ASSIST - 10/12/2024 3:34 PM EST Here for Today's visit regarding: L ankle injury Location of pain: L ankle Injury: Slipped on ice Recent Imagin10/04/24 Prior treatment: [facility] Prior Surgery: n/a Date of injury or symptoms started: 10/03 Goals for this appointment: eval documented in this encounter Miscellaneous Notes * Addendum Note - Balbina Lr CMA - 10/18/2024 9:35 AM ESTAddended by: BALBINA LR on: 10/18/2024 09:35 AM Modules accepted: Orders documented in this encounter Plan of Treatment Upcoming Encounters Date Type Department Care Team (Late st Contact Info) Description 11/02/2024 2:00 PM EDT Office Visit Orthopaedics [facility] [address] [place] [phone] SharerAnastasiya PA-C [address] [place] [phone] 11/10/2024 12:30 PM EDT Telemedicine Psychiatry, [facility] [address] [place] [address] Lester Serna CRNP [address] [place] [address] 12/13/2024 10:40 AM EDT Office Visit Gastroenterology, [facility] [address] [place] [address] Cheryl Rowley MD [address] [place] [address] Health Maintenance Due Date Last Done Comments DISCUSS TOBACCO CESSATION (REFER TO SMARTSET #3550) 1973 Albumin/Creatinine Ratio 1991 Zoster Vaccines (1 [...] present. IMPRESSION IMPRESSION Nondisplaced fibular tip fracture. us Anastasiya Lady Sharer PA-C RADIOLOGY (RAD GENERAL) F inal Result [...] of Attor marlyn? No Care Teams Personal Computer Specialist Relationship Specialty Start Date End Date Giovany Correa DO [address] [place] [address] PCP - General Family Medicine 10/30/20 documented as of this encounter
--- OUTSIDE RECORDS SUMMARY | 2024-11-22 11:05 | External Medical Summary | Summary of Care ---
Author Name Unknown Organization [facility] Address [address] [facility] [place] [address] Phone [phone] Care Team Providers Care Manager Environmental Name Role Phone Giovany Correa DO Primary Care Provider Reason for Visit * Reason Comments eRx-Medication Refill Encounter Details Date Type Department Care Team (Late st Contact Info) Description 10/05/2024 Refill Family Practice [facility] [address] [place] [address] Giovany Correa DO [address] [place] [address] Anxiety Allergies No known active allergiesdocumented as of this encounter (statuses as of 10/05/2024) Medications OSCAL 500/200 D-3 500-200 MG-UNIT PO [...] 0 Active MUCINEX D 120-1200 MG PO [id number]: Chronic rhinitis,Other chronic sinusitis,Hypert rophy of nasal [...] a day 18 g 3 1 Active traMADol HCl 50 MG Oral Tablet (Ultram) Take 1 Tab by mouth every 6 hours as needed (pain not controlled with tylenol). 5 Tab 1 Active Additional Information Patient not taking.Reported on 01/10/2024 Ustekinumab 90 MG/ML Subcutaneous Solution Prefilled Syringe (Franklya) Inject 90 mg under the skin once [...] 1 mL 5 08/28/2024 10:33 AM EST 4 Active Pantoprazole Sodium 40 MG Oral Tablet Delayed Release (Protonix) TAKE 1 TABLET BY MOUTH ONCE DAILY 90 Tablet 1 4 Active LORazepam 0.5 MG Oral Tablet (Ativan)Indicati ons:Anxiety TAKE 1 TABLET BY MOUTH IN THE MORNING AT AT NOON AND BEFORE BEDTIME 90 Tablet 5 Active Gabapentin 300 MG Oral Capsule [...] before bedtime. 60 Tablet 2 5 Active Amphetamine-Dext roamphetamine 5 MG Oral Tablet (Adderall) Take 1 Tablet by mouth 2 times a day in the morning and at noon. 60 Tablet 5 Active Hospital, Clinic, or Other Facility Administered Medication Ordered Dose Route Frequency Start Date End Date Status albuterol sulfate (PROVENTIL) (2.5 MG/3ML) 0.083% inhalation solution 2.5 mgIndications:ESCOBEDO (dyspnea on exertion) 2.5 mg NEBULIZER PRN 11/15/2019 Act ran documented as of this encounter (statuses as of 10/05/2024) Active Problems Problem Noted Date Diagnosed Date [...] as of this encounter (statuses as of 10/05/2024) Resolved Problems Problem Noted Date Diagnosed Date [...] as of this encounter (statuses as of 10/05/2024) Immunizations Name Administration Dates Next Due COVID-19 [...] Notes * Telephone Encounter - Angel Kiser, [facility] - 10/05/2024 3:55 PM EST Refused Prescriptions: Disp Refills LORazepam 0.5 MG Oral Tablet (Ativan) 90 Tab*0 Sig: TAKE 1 TABLET BY MOUTH IN THE MORNING AT NOON AND BEFORE BEDTIMERefused By: [facility] Duplicate Request documented in this encounter Plan of Treatment Upcoming Encounters Date Type Department Care Team (Late st Contact Info) Description 11/10/2024 12:30 PM EDT Telemedicine Psychiatry, [facility] [address] [place] [address] Lester Serna CRNP [address] [place] [address] 12/13/2024 10:40 AM EDT Office Visit Gastroenterology, [facility] [address] [place] [address] Cheryl Rowley MD [address] [place] [address] Health Maintenance Due Date Last Done Comments [...] Power of Attor marlyn? No Care Teams Manager Environmental Relationship Specialty Start Date End Date Giovany Correa DO [address] [place] [phone] PCP - General Family Medicine 10/30/20 documented as of this encounter
--- OUTSIDE RECORDS SUMMARY | 2024-11-22 11:05 | External Medical Summary | Summary of Care ---
Author Name Unknown Organization [facility] Address [address] [facility] [place] [address] Phone [phone] Care Team Providers Care Coder Operator Name Role Phone Geoffrey Correavor Eleuterio Primary Care Provider Encounter Details Date Type Department Care Team (Late st Contact Info) Description 10/04/2024 Result Scan Unspecified Department <No scans attached> Allergies No known active allergiesdocumented as of this encounter (statuses as of 10/16/2024) Medications OSCAL 500/200 D-3 500-200 MG-UNIT PO [...] 0 Active MUCINEX D 120-1200 MG PO [id number]: Chronic rhinitis,Other chronic sinusitis,Hypert rophy of nasal [...] before bedtime. 60 Tablet 2 5 Active Hospital, Clinic, or Other Facility Administered Medication Ordered Dose Route Frequency Start Date End Date Status albuterol sulfate (PROVENTIL) (2.5 MG/3ML) 0.083% inhalation solution 2.5 mgIndications:ESCOBEDO (dyspnea on exertion) 2.5 mg NEBULIZER PRN 11/15/2019 Act ran documented as of this encounter (statuses as of 10/16/2024) Active Problems Problem Noted Date Diagnosed Date [...] as of this encounter (statuses as of 10/16/2024) Resolved Problems Problem Noted Date Diagnosed Date [...] as of this encounter (statuses as of 10/16/2024) Immunizations Name Administration Dates Next Due COVID-19 [...] Ilia Bauer RN documented in this encounter Plan of Treatment Upcoming Encounters Date Type Department Care Team (Late st Contact Info) Description 11/02/2024 2:00 PM EDT Office Visit Orthopaedics [facility] [address] [place] [phone] MaynorrAnastasiya PA-C [address] [place] [phone] 11/10/2024 12:30 PM EDT Telemedicine Psychiatry, [facility] [address] [place] [address] Lester Serna CRNP [address] [place] [address] 12/13/2024 10:40 AM EDT Office Visit Gastroenterology, [facility] [address] [place] [address] Cheryl Rowley MD [address] [place] [address] Health Maintenance Due Date Last Done Comments DISCUSS TOBACCO CESSATION (REFER TO SMARTSET #9131) 1973 Albumin/Creatinine Ratio 1991 Zoster Vaccines (1 [...] Procedure Name Priority Date/Time Associated Diagnosis Comments RADIOLOGY SCANNED RESULT 10/04/2024 RADIOLOGY SCANNED RESULT 10/04/2024 documented in this encounter Results * RADIOLOGY SCANNED RESULT (10/04/2024) 10/04/2024 us No Physician Data Unknown DIAGNOSTIC RADIOLOGY S ERVICES Final Result * RADIOLOGY SCANNED RESULT (10/04/2024) 10/04/2024 us No Physician Data Unknown DIAGNOSTIC RADIOLOGY S ERVICES Final Result documented in this encounter Advance Directives * [...] Power of Attor marlyn? No Care Teams Coder Operator Relationship Specialty Start Date End Date Giovany Correa DO [address] [place] [address] PCP - General Family Medicine 10/30/20 documented as of this encounter
--- OUTSIDE RECORDS SUMMARY | 2024-11-22 11:05 | External Medical Summary | Summary of Care ---
Author Name Unknown Organization [facility] Address [address] [facility] [place] [address] Phone [phone] Care Team Providers Care Software Applications Engineer Name Role Phone Giovany Correa DO Primary Care Provider Reason for Referral * Evaluate & Treat - Unlimited Visits (Within 3 days (urgent)) - Authorized Specialty Diagnoses / Procedures Referred By Coco newman Referred To Contact Orthopaedic Surgery / Orthopedics Diagnoses Malleolar fracture, left, closed, initial encounter Giovany Correa DO [address] [place] [address] Phone: tel: fax: Referral ID Status Reason Start Date Expiration Date Visits Requested Visits Authorized [id number] Authorized Specialty Services Required 10/12/2024 999 999 Question Answer Referral Priority Within 3 days (urgent) Where should this appointment be scheduled? [facility] What body part is the patient being seen for? Foot/Ankle/Calf What condition is the patient being seen for? Fracture including related infection Comments Post ER fracture care Reason for Visit * Reason Comments Emergency Department Pt here for ER F/U, seen at [facility] on 10/04/2024 as she had fallen on ice, on . X ray shows Fx to L ankle. Pt taking tylenol for prn pain. Pt states she is still having lower back pain. X-rays also done and of L knee, which showed no fractures per pt. Encounter Details Date Type Department Care Team (Latest Contact Info) Description 10/12/2024 2:20 PM EST Office Visit [facility] [address] [place] [address] Giovany Correa DO [address] [place] [address] Malleolar fracture, left, closed, initial encounter*; Crohn's disease of colon without complication (HCC); Immunodeficiency due to drugs (HCC); Crohn's disease of both small and large intestine without complications (HCC); Essential (primary) hypertension; Uncomplicated asthma, unspecified asthma severity, unspecified whether persistent Allergies No known active allergiesdocumented as of this encounter (statuses as of 10/12/2024) Medications OSCAL 500/200 D-3 500-200 MG-UNIT PO TABSIndications :Crohn's disease of colon (HCC) one tab once a day 30 5 11/09/19 09 Active Additional Information Patient taking differently: (No route reported), HS, Reported on 07/02/2022 FISH OIL 1000 MG PO CAPS 1 tab by mouth daily in the evening 0 11/28/19 10 Active NASAL SALINE 0.65 % NA SOLNIndications :Chronic rhinitis,Other chronic sinusitis flush each nostril morning and night and every 2-4 hrs as needed for nasal dryness or congestion 1 Bottle 4 07/31/20 10 Active MUCINEX D 120-1200 MG PO [id number] :Chronic rhinitis,Other chronic sinusitis,Hyper trophy of nasal turbinates,Dysf unction of eustachian tube 1 TABLET EVERY 12 HOURS NEEDED FOR NASAL CONGESTION 30 Tab 3 07/31/20 10 Active Additional Information Patient not taking.Reported on 06/30/2022 Albuterol Sulfate HFA 108 (90 Base) MCG/ACT Inhalation Aerosol SolutionIndicat ions:Acute maxillary sinusitis, recurrence not specified,Bronc hitis, complicated inhale 2 puffs by mouth and INTO THE LUNGS four times a day 18 g 3 02/04/20 21 Active Ustekinumab 90 MG/ML Subcutaneous Solution Prefilled Syringe (Stelera) Inject 90 mg under the skin once for 1 dose. 1 mL 03/21/20 21 Active Fluticasone Propionate 50 MCG/ACT Nasal Suspension (Flonase)Indica tions:Acute sinusitis instill 2 sprays into each nostril once daily 48 g 3 05/19/20 21 Active Multi-Day Oral Tablet Take 1 Tablet by mouth every evening. Active Melatonin 5 MG Oral Capsule Take 1 Capsule by mouth at bedtime. Active Azelastine HCl 137 MCG/SPRAY Nasal SolutionIndicat ions:Chronic rhinitis instill 2 sprays into each nostril [...] Active Diclofenac Sodium 1 % External Gel (Voltaren)Indic ations:Elbow pain, chronic, right apply 4 grams to affected area three times a day NEEDED FOR PAIN APPLY TO ELBOW 350 g 3 03/29/20 23 Active Additional Information Patient not taking.Reported on 05/23/2024 Diphenoxylate-A tropine 2.5-0.025 MG Oral Tablet (Lomotil) Take 1 Tablet by mouth daily as needed for Diarrhea. 30 Tablet 5 10/26/19 24 Active Stelara 90 MG/ML Subcutaneous Solution Prefilled Syringe (Ustekinumab)In dications:Crohn 's disease of colon without complication (HCC) Inject 90 mg under the skin every 4 weeks. 1 mL 5 5 8:55 AM EST 05/05/20 24 Active Pantoprazole Sodium [...] morning. 600 mL 2 09/01/19 25 Active Dextromethorpha n-buPROPion ER 45-105 MG Oral Tablet Extended Release (Auvelity) Take 1 Tablet by mouth in the morning and 1 Tablet before bedtime. 60 Tablet 2 09/15/19 25 Active LORazepam 0.5 MG Oral Tablet (Ativan)Indicat ions:Anxiety TAKE 1 TABLET BY MOUTH IN THE MORNING, 1 tablet AT NOON AND 1 tablet BEFORE BEDTIME 90 Tablet 5 7:43 AM EST 10/09/19 25 Active Amphetamine-Dex troamphetamine 5 MG Oral Tablet (Adderall) Take 1 Tablet by mouth 2 times a day in the morning and at noon. 60 Tablet 5 1:22 PM EST 10/05/19 25 Active traMADol HCl 50 MG Oral Tablet (Ultram) Take 1 Tab by mouth every 6 hours as needed (pain not controlled with tylenol). 5 Tab 02/20/20 21 025 Discontinued Hospital, Clinic, or Other Facility Administered Medication Ordered Dose Route Frequency Start Date End Date Status albuterol sulfate (PROVENTIL) (2.5 MG/3ML) 0.083% inhalation solution 2.5 mgIndications:ESCOBEDO (dyspnea on exertion) 2.5 mg NEBULIZER PRN 11/15/2019 Act ran documented as of this encounter (statuses as of 10/12/2024) Active Problems Problem Noted Date Diagnosed Date [...] as of this encounter (statuses as of 10/12/2024) Resolved Problems Problem Noted Date Diagnosed Date [...] as of this encounter (statuses as of 10/12/2024) Immunizations Name Administration Dates Next Due COVID-19 [...] Day Cigarettes 0.5 20 Smokeless Tobacco: Never Tobacco Cessation:Ready to Q uit: Not Asked; Counseling Given: Not Answered Alcohol Use Standard Drinks/Week Comments Yes 0 [...] on file documented as of this encounter Last Filed Vital Signs Vital Sign Reading Time Taken Comments Blood Pressure 110/87 10/12/2024 2:48 PM EST Pulse 103 10/12/2024 2:48 PM EST Temperature 37.3 C (99.1 F) 10/12/2024 2:48 PM ES T Respiratory Rate 16 10/12/2024 2:48 PM EST Oxygen Saturation 97% 10/12/2024 2:48 PM EST Inhaled Oxygen Concentration - - Weight 74.8 kg (165 lb) 10/12/2024 2:48 PM EST p t reports Height - - Body Mass Index 25.09 01/11/2024 1:45 PM EDT documented in this encounter Functional Status * Are you [...] Assessment Author No 10/12/2020 1:01 PM Ilia Buaer RN documented as of this encounter Mental Status * Because of a physical, mental, or emotional condition, do you have serious difficulty concentrating, remembering, or making decisions? (5 years old or older) Answer Entry Date Author No 10/12/2020 1:01 PM Ilia Bauer RN documented in this encounter Progress Notes * Giovany Correa DO - 10/12/2024 2:53 PM EST Images from the original note were not included. Assessment and Plan Assessment & Plan Ankle Fracture Recent fall with subsequent lateral maleolar ankle fracture. Pain and swelling increase with dependency. No signs of compartment syndrome. No orthopedic follow-up scheduled yet, but will arrange today -Refer to orthopedics for urgent follow-up. -Advise to keep leg elevated to reduce swelling and pain. Knee Injury Concurrent knee injury from the same fall. Intermittent swelling. -Advise to monitor and report any worsening symptoms. Hx of Crohn's disease With multiple surgeries in past On immune suppression and folllowing With GI General Health Maintenance Noted poor circulation and low blood pressure. Current smoker. -Advise smoking cessation for improved circulation and overall health. History of Present Illness Keiry Cruz is a 49 year old female that presents for Emergency Department (Pt here for ER F/U, seen at [facility] on 10/04/2024 as she had fallen on ice, on . X ray shows Fx to L ankle. Pt taking tylenol for prn pain. Pt states she is still having lower back pain. X-rays also doneand of L knee, which showed no fractures per pt.) History of Present Illness The patient presents after a fall off her porch, resulting in a broken ankle. She describes the incident as her right leg slipping out from under her, with her left leg pinned underneath and bending backwards. The fall also resulted in injuries to her knee, hip, and back. The patient reports severepain and swelling in the ankle, which worsens if not elevated for 10-15 minutes, and her toes turn purple. She also reports difficulty with mobility and self-care due to the injury. The patient also describes episodes of fainting and severe nausea in the days following the injury.She reports passing out in the hallway and again while trying to get up from the toilet. She also experienced severe nausea when trying to move around, even just to get water from the refrigerator. The patient also mentions a knee injury from the fall, which swells and then subsides. She reports no pain in the upper leg. Physical Exam Vitals: 10/12/24 1448 Temp: 99.1 F (37.3 C) Pulse: 103 Resp: 16 SpO2: 97% BP: 110/87 Physical Exam Constitutional: Appearance: Normal appearance. HENT: Head: Normocephalic and atraumatic. Eyes: Extraocular Movements: Extraocular movements intact. Pupils: Pupils are equal, round, and reactive to light. Musculoskeletal: Comments: L ankle wrapped in splint Distal NVS intact Proximal leg non erythematous and Mild effusion of knee without bruising noted Neurological: General: No focal deficit present. Mental Status: She is alert and oriented to person, place, and time. Psychiatric: Mood and Affect: Mood normal. Behavior: Behavior normal. Wrap-Up Time: Total time today was 42 minutes excluding any time spent in the performance of separately billed services. Text in this note was generated using an ambient documentation service. I discussed the use of a device to record and summarize our discussion today. All persons present during the encounter consented to its use. documented in this encounter Plan of Treatment Upcoming Encounters Date Type Department Care Team (Late st Contact Info) Description 11/02/2024 2:00 PM EDT Office Visit Orthopaedics [facility] [address] [place] [phone] MaynorrAnastasiya PA-C [address] [place] [phone] 11/10/2024 12:30 PM EDT Telemedicine [facility]iatry, [facility] [address] [facility] [facility] [place] [address] Lester Serna CRNP [address] [place] [address] 12/13/2024 10:40 AM EDT Office Visit Gastroenterology, [facility] [address] [place] [address] Cheryl Rowley MD [address] [place] [address] Scheduled Referrals Name Type Priority Associated Diagnoses Order Schedule ORTHOPAEDICS REFERRAL OP Referral Within 3 days (urgent) Malleolar fracture, left, closed, initial encounter Ordered: 10/12/2024 Health Maintenance Due Date Last Done Comments DISCUSS TOBACCO CESSATION (REFER TO SMARTSET #[id number]) 1973 Albumin/Creatinine Ratio 1991 Zoster Vaccines (1 [...] as of this encounter Visit Diagnoses Diagnosis Malleolar fracture, left, closed, initial encounter- Primary Crohn's disease of colon without complication (HCC) Immunodeficiency due to drugs (HCC) Crohn's disease of both small and large intestine without complications (HCC) Essential (primary) hypertension Unspecified essential hypertension Uncomplicated asthma, unspecified asthma severity, unspecified whether persistent documented in this encounter Advance Directives * [...] Power of Attor marlyn? No Care Teams Software Applications Engineer Relationship Specialty Start Date End Date Giovany Correa DO [address] [place] [address] PCP - General Family Medicine 10/30/20 documented as of this encounter
--- OUTSIDE RECORDS SUMMARY | 2024-11-22 11:05 | External Medical Summary | Summary of Care ---
Author Name Unknown Organization [facility] Address [address] [facility] [place] [address] Phone [phone] Care Team Providers Care Legal Associate Name Role Phone Geoffrey Correavor Eleuterio Primary Care Provider Reason for Visit * Reason Onset Date Comments Medication Refill 10/05/2024 Encounter Details Date Type Department Care Team (Late st Contact Info) Description [facility] [address] [place] [address] Solis Serna CRNP [address] [place] [address] Allergies No known active allergiesdocumented as of [...] 10 Active MUCINEX D 120-1200 MG PO [id number]: Chronic rhinitis,Other chronic sinusitis,Hypert rophy of nasal [...] Ustekinumab 90 MG/ML Subcutaneous Solution Prefilled Syringe (SoNetJoba) Inject 90 mg under the skin once [...] DAILY 90 Tablet 1 06/30/20 24 Active LORazepam 0.5 MG Oral Tablet (Ativan)Indicati ons:Anxiety TAKE 1 TABLET BY MOUTH IN THE MORNING AT AT NOON AND BEFORE BEDTIME 90 Tablet 09/04/19 25 Active Gabapentin 300 MG Oral Capsule [...] bedtime. 60 Tablet 2 09/15/19 25 Active Amphetamine-Dext roamphetamine 5 MG Oral Tablet (Adderall) Take 1 Tablet by mouth 2 times a day in the morning and at noon. 60 Tablet 10/05/19 25 Active Amphetamine-Dext roamphetamine 5 MG Oral Tablet (Adderall) Take 1 Tablet by mouth 2 times a day in the morning and at noon. 60 Tablet 09/01/19 25 025 Discontin ued(Refil l) Hospital, [...] Telephone Encounter - Solis Serna CRNP - 10/05/2024 1:46 PM ESTSigned Prescriptions: Disp Refills Amphetamine-Dextroamphetamine 5 MG Oral Ta*60 Tab*0 Sig: Take 1 Tablet by mouth 2 times a day in the morning and at noon. Authorizing Provider: SOLIS SERNA * Telephone Encounter - Elizabeth Nguyen LPN - 10/05/2024 1:07 PM EST Pending Prescriptions: Disp Refills Amphetamine-Dextroamphetamine 5 MG Oral Ta*60 Tab*0 Sig: Take 1 Tablet by mouth 2 times a day in the morning and at noon. * Telephone Encounter - Elizabeth Nguyen LPN - 10/05/2024 1:06 PM EST Refill request from patient ([facility]) for Adderall. Medication last filled on 09/01/24 with 0 refills. Patient last seen on 09/15/24 with return appointment scheduled for 11/10/24. Patient had 0 cancelled appointments and 0 NO SHOW appointments. documented in this encounter Plan of Treatment Upcoming Encounters Date Type Department Care Team (Late st Contact Info) Description 11/10/2024 12:30 PM EDT Telemedicine Psychiatry, [facility] [address] [place] [address] Solis Serna CRNP [address] [place] [address] 12/13/2024 10:40 AM EDT Office Visit Gastroenterology, [facility] [address] [place] [address] Cheryl Rowley MD [address] [place] [address] Health Maintenance Due Date Last Done Comments [...] Power of Attor marlyn? No Care Teams Legal Associate Relationship Specialty Start Date End Date Giovany Correa DO [address] [place] [address] PCP - General Family Medicine 10/30/20 documented as of this encounter
[2024-11-22] MEDS: methylPREDNISolone 40 MG in SYRINGE 0 ML IV SCH (12:01)
[2024-11-22] MEDS: NSS + 20MEQ KCL 20 MEQ/1,000 ML BAG IV SCH (12:19)
--- NOTE | 2024-11-22 13:03 | Hospitalist Progress Note ---
Date of Service November 22, 2024 Assessment & Plan (1) SBO (small bowel obstruction): (2) Crohn's disease: (3) Depression with anxiety: (4) Hypokalemia: Plan Patient with small bowel obstruction in setting of Crohn's disease with previous colectomy. Reviewed GI consultation, starting IV steroids for possible flare of Crohn's as etiology for bowel obstruction Continue hydration Replace potassium Pain control Encourage activity Admission and Anticipated Discharge Date Admission Date: November 22, 2024 Subjective Patient with no vomiting, not passing any flatus, abdominal pain slightly better Physical Exam Physical Exam: Constitutional: Alert, nontoxic HEENT: Mucous membranes moist. Lungs: Clear to auscultation, decreased, no wheezes rales or rhonchi CV: S1-S2, regular Abdomen: Diffuse tenderness Extremities: No significant edema Neuro: No focal deficits Psych: Cooperative, normal mood Results & Data Results & Data Vital Signs (Past 12 Hours) Vital Signs Temp Pulse Pulse Resp BP BP Pulse Ox 11/22/24 11:30 36.9 C 72 16 124/72 96 11/22/24 07:52 72 16 135/76 97 11/22/24 07:30 72 16 135/76 97 11/22/24 06:00 66 16 134/77 95 11/22/24 05:24 88 L 11/22/24 05:05 75 11/22/24 04:00 93 H 16 130/70 94 11/22/24 03:03 64 16 131/74 93 11/22/24 02:00 69 20 119/86 92 O2 Del Method O2 Flow Rate 11/22/24 11:30 Room Air 11/22/24 07:52 Nasal Cannula 2 11/22/24 07:30 Nasal Cannula 2 11/22/24 06:00 Nasal Cannula 2 11/22/24 05:24 Room Air, Nasal Cannula 11/22/24 05:05 11/22/24 04:00 Room Air 11/22/24 03:03 Room Air 11/22/24 02:00 Room Air
[2024-11-22] MEDS: GABAPENTIN 600 MG TAB PO SCH (20:31)
[2024-11-22] MEDS: methylPREDNISolone 20 MG in SYRINGE 0 ML IV SCH (21:47)
[2024-11-23 00:36] VITALS: RESP 20
[2024-11-23 07:22] LABS: BUN Creatinine Ratio 16.1 (10-20); Calcium 8.8 mg/dl (8.6-10.3); Creatinine Clr Calc Pharmacy 117.1 ml/min; Magnesium 1.8 mg/dl (1.7-2.4); Phosphorus 3.4 mg/dl (2.5-4.9); Potassium 4.3 mmol/L (3.5-5.1)
[2024-11-23 07:31] VITALS: BP 122/64; PULSE 66; TEMP 98.1; O2SAT 93
--- NOTE | 2024-11-23 08:28 | Surgery Progress Note ---
Date of Service November 23, 2024 Assessment & Plan (1) SBO (small bowel obstruction): Plan: Patient with history of Crohns here w/ recurrent SBO Vitals are stable Patient feels improvement in her symptoms overall, some abdominal discomfort does remain She is passing some gas, no BM. Denies n/v Abdomen soft, some lower/mid abdominal discomfort bilaterally but worse on the R We are okay with initiating a full liquid diet today and seeing how she fairs GI following along and she has been started on steroids Encouraged OOB/ambulating, PT ordered, has history of L ankle fracture pt reports is now healed Admission and Anticipated Discharge Date Admission Date: November 22, 2024 Supervising Physician Co-Signing Physician Notes I have seen and this patient this am with the surgical team, SBO resolving and I agree with this plan. Subjective Patient reports feeling a bit better than admission in regards to her pain. She is passing a small amount of gas. No BM yet. She is hungry. Denies n/v. Physical Exam 2 Physical Exam: awake/alert, no distress Gastrointestinal (Abdomen): Inspection/Auscultation: abdomen not distended Percussion/Palpation: + abdomen tender (some discomfort noted across lower abd R>L) and abdomen soft Results & Data Vital Signs (Past 12 Hours) Vital Signs Temp Pulse Resp BP Pulse Ox O2 Del Method O2 Flow Rate 11/23/24 07:30 98.1 F 66 20 122/64 93 Room Air 11/23/24 00:34 98.8 F 81 20 119/67 96 Nasal Cannula 2 PG Care Time/CCT Total # of Minutes Spent Total Time Spent with Patient: Total time spent is greater than 50% in coordination of care (as documented) at patient's floor/unit and/or counseling patient: Coding Level of Care Code 23371 SUB INP/OBS CARE 09/16MIN Diagnoses SBO (small bowel obstruction) K56.609
--- NOTE | 2024-11-23 09:39 | Gastroenterology Progress Note ---
Date of Service November 23, 2024 Assessment & Plan (1) SBO (small bowel obstruction): (2) Crohn's disease: Plan Patient seems to be improving and is now passing gas and feeling better. - continue with IV solumedrol 20mg TID. 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 Admission and Anticipated Discharge Date Admission Date: November 22, 2024 Supervising Physician Co-Signing Physician Notes I personally saw and examined the patient. I have reviewed the chart and agree with the documentation provided by the REGULATORY AND COMPLIANCE TECHNICIAN including discussion about the assessment, treatment and plan. She passed a bowel movement and feels better. She ate tomato soup and grilled cheese. From a GI standpoint she is stable to go home on a very low residue diet. He will need a steroid taper as outlined above. She would like some pain meds in case she gets at home. Fine for her to leave today and follow-up with [facility] GI outpatient. Subjective Patient tells me that she does feel improved today. she was given cream of wheat for breakfast and so far has tolerated that. no nausea/vomiting. she still has some abdominal discomfort, but this has improved since yesterday. no bowel movements, but she is now passing gas. Review of Systems Review of Systems: All systems reviewed & are unremarkable except as noted in HPI & below Physical Exam Constitutional: WD/WN, vitals as above Respiratory: normal respiratory effort, lungs clear to auscultation Cardiovascular: Rate/Rhythm: regular rate and regular rhythm Gastrointestinal (Abdomen): mild diffuse tenderness, no guarding, soft, more normal bowel sounds. Psychiatric: Orientation: alert and oriented x 3 Affect: euthymic affect Results & Data Results & Data Vital Signs (Past 12 Hours) Vital Signs Temp Pulse Resp BP Pulse Ox O2 Del Method O2 Flow Rate 11/23/24 07:30 98.1 F 66 20 122/64 93 Room Air 11/23/24 00:34 98.8 F 81 20 119/67 96 Nasal Cannula 2 Coding Level of Care Code 98656 SUB INP/OBS CARE 25MIN Diagnoses SBO (small bowel obstruction) K56.609 Crohn's disease K50.90
[2024-11-23] MEDS: oxyCODONE HCL IR 5 MG TAB (IMMEDIATE RELEASE) PO STA (15:24)
--- NOTE | 2024-11-23 15:31 | Discharge Summary ---
Discharge Summary Date of Service November 23, 2024 Principal Dx & Hospital Course #1 = Principal Diagnosis (1) SBO (small bowel obstruction): (2) Crohn's disease: (3) Depression with anxiety: (4) Hypokalemia: Plan Patient is a 49-year-old female with known Crohn's disease, status post right colectomy and previous issues with small bowel obstructions presented to the emergency room with abdominal pain. Imaging was consistent with small bowel obstruction. Patient was admitted to the hospital. She declined NG tube decompression. She was given fluid resuscitation and her electrolytes were replaced. She was given IV pain control. GI consultation was obtained. They recommended treating with IV steroids for possible flare of Crohn's as a source of her bowel obstruction. She is seen by surgery as well. There is no shruti cation for immediate surgical invention. Through the course of her hospitalization she started to have resumption of bowel sounds and started passed flatus. Diet was advanced which she tolerated well. Her electrolytes have been replaced and stabilized. She can be discharged home to outpatient follow-up with GI and consideration of follow-up with colorectal surgery. Notes For Next Care Provider Consider referral to colorectal surgery GI appointment outpatient Medication Changes From Visit Prolonged prednisone taper Admission HPI Per Admitting Provider 49-year-old female with past med history significant for uncomplicated asthma, history of hypertensive urgency, Crohn's disease, restless leg syndrome, immunodeficiency due to drugs, depression with anxiety, tobacco use disorder presents with abdominal pain since yesterday morning. The pain was getting worse so she came to the ER. Denies any nausea. Yesterday morning she had a small amount of bowel movement. Denies any blood in the stools. Micturating o eloisa. No fevers. No chest pain or shortness of breath. No runny nose or sore throat. Past medical history. As mentioned above Past surgical history. Abdominal surgery. Colonoscopy. Colonoscopy with biopsy. Cystoscopy with insertion of stent. EGD. Laparoscopic partial colectomy with anastomosis. Diagnostic laparoscopy. Nasal sinus endoscopy. Rhinoplasty. Tonsillectomy. Removal of turbinate bones. Bowel resection. Repair of nasal septum. Upper GI endoscopy. Social history. Smokes 0.5 pack a day for 20 years. Drinks alcohol. No drug use. Family history. Father has asthma. Esophageal cancer. TIA. Mother has arthritis. Diverticulitis. Heart disorder. Sister has Crohn's disease. Sister has diabetes. Paternal grandfather had cancer. Admission Exam Per Admitting Provider See H&P Discharge Exam Constitutional: Alert, nontoxic HEENT: Mucous membranes moist. Lungs: Clear to auscultation, decreased, no wheezes rales or rhonchi CV: S1-S2, regular Abdomen: Soft, nontender, nondistended, normoactive bowel sounds Extremities: No significant edema Neuro: No focal deficits Psych: Cooperative, normal mood Updated Medication List Medication Instructions Recorded Confirmed Type albuterol sulfate 90 mcg/actuation 2 puff inhalation QID PRN sob 11/22/24 11/22/24 History aerosol inhaler (Ventolin HFA) dextroamphetamine-amphetamine 5 mg 5 mg PO UD 11/22/24 11/22/24 History tablet dextromethorphan IR 45 1 tab PO BID 11/22/24 11/22/24 History mg-bupropion ER 105 mg biphasic tablet (Auvelity) diphenoxylate-atropine 2.5 1 tab PO DAILY PRN Diarrhea 11/22/24 11/22/24 History mg-0.025 mg tablet fluoxetine 20 mg/5 mL (4 mg/mL) 20 mg PO DAILY 11/22/24 11/22/24 History oral solution gabapentin 300 mg capsule 300 mg PO UD 11/22/24 11/22/24 History gabapentin 600 mg tablet 600 mg PO HS 11/22/24 11/22/24 History lorazepam 0.5 mg tablet 0.5 mg PO TID 11/22/24 11/22/24 History pantoprazole 40 mg tablet,delayed 40 mg PO DAILY 11/22/24 11/22/24 History release potassium chloride 10 mEq 10 meq PO DAILY 11/22/24 11/22/24 History capsule,extended release ustekinumab 90 mg/mL subcutaneous 90 mg subcut UD 11/22/24 11/22/24 History syringe (Stelara) oxycodone 5 mg tablet 5 mg PO Q6H PRN pain #7 tabs 11/23/24 Rx prednisone 10 mg tablet See Rx Instructions .Route 11/23/24 Rx .COMPLEX #115 tabs Hospital Stay Data Consultations 11/22/24 08:15 Consult Gastroenterology Routine Consult General Surgery Routine Diagnostic Imagining Performed 11/21/24 21:36 CT abd pelvis IV con only Stat Reviewed imaging, laboratory and diagnostic studies. Pertinent findings as below. Sodium 141 Potassium 4.3 Chloride 107 Creatinine 0.56 Pending Results Patient Have Any Pending Studies at Discharge: No Discharge Instructions Given to Patient (Per Discharging Provider) Follow-up with pleasure [facility] Discussed with PCP possible referral to colorectal surgeon Total Time Total Time Spent Total Time Spent (In Minutes): 35
[2024-11-24 11:27] LABS: Codeine Urine NEGATIVE ng/mL (<50); Hydrocodone Urine NEGATIVE ng/mL (<50); Hydromor Urine NEGATIVE ng/mL (<50); Morphine Urine 7050 ng/mL (<50); Norhydrocodone Conf Ur NEGATIVE ng/mL (<50); Noroxycodone Urine NEGATIVE ng/mL (<50); Oxycodone Urine NEGATIVE ng/mL (<50); Oxymorph Urine NEGATIVE ng/mL (<50)
== END 2024-11-23 16:22 | disposition home or self-care (01) | DRG 386 ==
LOC: ED 20:49 → 2N 11-22 05:21